=== PATIENT | female | born 1975 | race Caucasian/White ===

== ENCOUNTER 2023-01-16 12:36 | Outpatient (OUT) | payer MEDICAID, SELFPAY ==
[2023-01-16 14:03] LABS: Alanine Aminotransferase 23 U/L (14-59); Albumin Level 3.7 g/dL (3.4-5.0); Alkaline Phosphatase 98 U/L (46-116); Anion Gap 10.7; Aspartate Amino Transferase 16 U/L (15-37); BUN Creatinine Ratio 11.9; Bilirubin Total 0.5 mg/dL (0.2-1.0); Calcium 9.4 mg/dL (8.5-10.1); Carbon Dioxide 28.6 mmol/L (21.0-32.0); Chloride 106 mmol/L (98-107); Estimated GFR (African America >60 (>=60); Estimated GFR (Non-African Ame >60 (>=60); Globulin 3.6 g/dL; Glucose 89 mg/dL (74-106); Lactate Dehydrogenase 161 U/L (81-234); Phosphorus 3.7 mg/dL (2.6-4.7); Potassium 4.3 mmol/L (3.5-5.1); Sodium 141 mmol/L (136-145); Total Protein 7.3 g/dL (6.4-8.2); Uric Acid 3.3 mg/dL (2.6-6.0)
== END 2023-01-16 12:37 ==
PROVIDERS: Visit Provider Psychiatry & Neurology Neurology
DX: C91.10 Chronic lymphocytic leukemia of B-cell type not having achieved remission (principal)
CPT/HCPCS: 36415; 80053; 83615; 84100; 84550

== ENCOUNTER 2023-02-05 15:11 | Outpatient (OUT) | payer MEDICAID, SELFPAY ==
[2023-02-05 15:29] LABS: Basophils Percent Auto 0.4 % (0.2-2.0); Eosinophils Absolute Auto 0.1 10^3/uL (0.0-0.7); Eosinophils Percent Auto 1.4 % (0.9-7.0); Hematocrit 42.2 % (36.0-48.0); Immature Granulocytes Abs Auto 0.02 10^3/uL (0.00-0.03); Immature Granulocytes Pct Auto 0.3 % (0.0-0.5); Lymphocytes Absolute Auto 1.3 10^3/uL (1.2-3.8); Mean Corpuscular HGB Conc 33.2 g/dL (29.9-35.2); Mean Corpuscular Hemoglobin 30.7 pg (26.7-34.0); Mean Corpuscular Volume 92.5 fL (81.0-99.0); Mean Platelet Volume 11.4 fL (9.5-13.5); Monocytes Absolute Auto 0.6 10^3/uL (0.3-0.8); Monocytes Percent Auto 8.8 % (1.7-12.0); Neutrophils Absolute Auto 5.1 10^3/uL (1.4-6.5); Neutrophils Percent Auto 71.1 % (43.0-75.0); Platelet Count 161 10^3/uL (150-450); Red Blood Count 4.56 10^6/uL (4.20-5.40); Red Cell Distribution Width 12.3 % (11.0-15.0); White Blood Count 7.2 10^3/uL (4.0-11.0)
[2023-02-05 15:56] LABS: Lactate Dehydrogenase 161 U/L (81-234); Uric Acid 3.2 mg/dL (2.6-6.0)
== END 2023-02-05 15:12 | disposition home or self-care (01) ==
LOC: LAB 15:12
PROVIDERS: Visit Provider Psychiatry & Neurology Neurology
DX: C91.10 Chronic lymphocytic leukemia of B-cell type not having achieved remission (principal)
CPT/HCPCS: 36415; 83615; 84550; 85025

== ENCOUNTER 2023-10-06 09:44 | Outpatient (OUT) | payer MEDICAID, SELFPAY ==
[2023-10-06 10:10] LABS: Basophils Percent Auto 0.6 % (0.2-2.0); Eosinophils Absolute Auto 0.1 10^3/uL (0.0-0.7); Eosinophils Percent Auto 1.2 % (0.9-7.0); Hematocrit 44.3 % (36.0-48.0); Hemoglobin 14.9 g/dL (12.0-16.0); Immature Granulocytes Abs Auto 0.01 10^3/uL (0.00-0.03); Immature Granulocytes Pct Auto 0.2 % (0.0-0.5); Lymphocytes Absolute Auto 1.2 10^3/uL (1.2-3.8); Lymphocytes Percent Auto 17.5 % (20.5-60.0); Mean Corpuscular HGB Conc 33.6 g/dL (29.9-35.2); Mean Corpuscular Volume 89.3 fL (81.0-99.0); Mean Platelet Volume 10.9 fL (9.5-13.5); Monocytes Absolute Auto 0.5 10^3/uL (0.3-0.8); Monocytes Percent Auto 7.3 % (1.7-12.0); Neutrophils Absolute Auto 4.8 10^3/uL (1.4-6.5); Neutrophils Percent Auto 73.2 % (43.0-75.0); Platelet Count 196 10^3/uL (150-450); Red Blood Count 4.96 10^6/uL (4.20-5.40); White Blood Count 6.6 10^3/uL (4.0-11.0)
[2023-10-06 11:10] LABS: Alanine Aminotransferase 23 U/L (14-59); Albumin Globulin Ratio 0.9; Albumin Level 3.7 g/dL (3.4-5.0); Alkaline Phosphatase 86 U/L (46-116); Anion Gap 13.1; Aspartate Amino Transferase 14 U/L (15-37); BUN Creatinine Ratio 16.4; Bilirubin Total 0.4 mg/dL (0.2-1.0); Carbon Dioxide 25.9 mmol/L (21.0-32.0); Chloride 105 mmol/L (98-107); Estimated GFR (African America >60 (>=60); Estimated GFR (Non-African Ame >60 (>=60); Globulin 3.9 g/dL; Glucose 90 mg/dL (74-106); Lactate Dehydrogenase 173 U/L (81-234); Phosphorus 3.5 mg/dL (2.6-4.7); Sodium 140 mmol/L (136-145); Total Protein 7.6 g/dL (6.4-8.2); Uric Acid 3.1 mg/dL (2.6-6.0)
== END 2023-10-06 09:45 | disposition home or self-care (01) ==
LOC: LAB 09:45
PROVIDERS: Visit Provider Psychiatry & Neurology Neurology
DX: C83.08 Small cell B-cell lymphoma, lymph nodes of multiple sites (principal)
CPT/HCPCS: 36415; 80053; 83615; 84100; 84550; 85025

== ENCOUNTER 2024-01-29 08:00 | Outpatient (RCR) | payer MEDICAID, SELFPAY ==
--- OUTSIDE RECORDS SUMMARY | 2024-01-23 08:56 | XMS_ITS | CCD ---
Author Organization [facility] Care Team Providers Care Bee Rancher Name Role Phone Bernice Chavis Unavailable BERNICE CHAVIS Primary Care Physician SALINAS, MOHAMMAD H Admitting Unavailable SELF, REFERRED Referring Unavailable SALINAS, MOHAMMAD H Attending Unavailable SELF, REFERRED Primary Care Unavailable SELF, REFERRED Referring Unavailable SELF, REFERRED Primary Care Unavailable SALINAS, MOHAMMAD H Attending Unavailable SALINAS, MOHAMMAD H Admitting Unavailable SALINAS, MOHAMMAD H Admitting Unavailable SELF, REFERRED Referring Unavailable SALINAS, MOHAMMAD H Attending Unavailable SELF, REFERRED Primary Care Unavailable SALINAS, MOHAMMAD H Attending Unavailable SALINAS, MOHAMMAD H Admitting Unavailable SELF, REFERRED Referring Unavailable SELF, REFERRED Primary Care Unavailable SELF, REFERRED Primary Care Unavailable SALINAS, MOHAMMAD H Attending Unavailable SALINAS, MOHAMMAD H Admitting Unavailable SELF, REFERRED Referring Unavailable SELF, REFERRED Primary Care Unavailable SALINAS, MOHAMMAD H Attending Unavailable SALINAS, MOHAMMAD H Admitting Unavailable SELF, REFERRED Referring Unavailable SALINAS, MOHAMMAD H Admitting Unavailable SELF, REFERRED Referring Unavailable SELF, REFERRED Primary Care Unavailable SALINAS, MOHAMMAD H Attending Unavailable SALINAS, MOHAMMAD H Admitting Unavailable SALINAS, MOHAMMAD H Attending Unavailable SELF, REFERRED Referring Unavailable SELF, REFERRED Primary Care Unavailable SALINAS, MOHAMMAD H Admitting Unavailable SELF, REFERRED Referring Unavailable SALINAS, MOHAMMAD H Attending Unavailable SELF, REFERRED Primary Care Unavailable MISC, DOCTOR Consulting Unavailable MISC, DOCTOR Attending Unavailable MISC, DOCTOR Admitting Unavailable PALMIRABERNICE GUERRERO Primary Care Unavailable MISC, DR FERNANDO Consulting Unavailable SALINAS, JOANNE Admitting Unavailable SALINAS, JOANNE Attending Unavailable BERNICE CHAVIS Primary Care Unavailable SALINAS, MOHAMMAD Consulting Unavailable SALINAS, MOHAMMAD Admitting Unavailable SALINAS, MOHAMMAD Attending Unavailable PALMIRABERNICE Primary Care Unavailable SALINAS, MOHAMMAD Admitting Unavailable SALINAS, MOHAMMAD Consulting Unavailable SALINAS, MOHAMMAD Attending Unavailable PALMIRA, BERNICE Primary Care Unavailable SALINAS, MOHAMMAD Attending Unavailable SALINAS, MOHAMMAD Admitting Unavailable SALINAS, MOHAMMAD Consulting Unavailable PALMIRA, BERNICE Primary Care Unavailable SALINAS, MOHAMMAD Attending Unavailable SALINAS, MOHAMMAD Admitting Unavailable SALINAS, MOHAMMAD Consulting Unavailable PALMIRA, BERNICE Primary Care Unavailable PALMIRA, BERNICE Primary Care Unavailable MISC, DOCTOR Consulting Unavailable MISC, DOCTOR Attending Unavailable MISC, DR FERNANDO Admitting Unavailable PALMIRA, BERNICE Primary Care Unavailable MISC, DR FERNANDO Consulting Unavailable MISC, DR FERNANDO Attending Unavailable MISC, DR FERNANDO Admitting Unavailable PAY ., DR MELARA Admitting Unavailable PALMIRA, BERNICE Primary Care Unavailable PAY ., DR MELARA Attending Unavailable FLORES ., DEEPIKA Consulting Unavailable LAKHWINDER CHANDLER Consulting Unavailable SALINAS, MOHAMMAD Admitting Unavailable SALINAS, MOHAMMAD Attending Unavailable PALMIRA, BERNICE Primary Care Unavailable SALINAS, MOHAMMAD Admitting Unavailable SALINAS, MOHAMMAD Consulting Unavailable SALINAS, MOHAMMAD Attending Unavailable PALMIRA, BERNICE Primary Care Unavailable SALNIAS, MOHAMMAD Admitting Unavailable SALINAS, MOHAMMAD Consulting Unavailable SALINAS, MOHAMMAD Attending Unavailable BERNICE CHAVIS Primary Care Unavailable SALINAS, MOHAMMAD Admitting Unavailable SALINAS, MOHAMMAD Consulting Unavailable SALINAS, MOHAMMAD Attending Unavailable PALMIRA, BERNICE Primary Care Unavailable PAY ., DR MELARA Consulting Unavailable PAY ., DR MELARA Attending Unavailable PALMIRA, BERNICE Primary Care Unavailable PAY ., DR MELARA Admitting Unavailable Palmira, Bernice Unavailable Vicente Tam Unavailable Palmira, DO Bernice N Primary Care Provider Palmira, DO Bernice N Attending Provider Palmira, Bernice N Attending Unavailable Palmira, Bernice N Admitting Unavailable Palmira, Bernice N Primary Care Unavailable Palmira, Bernice N Attending Unavailable Palmira, Bernice N Admitting Unavailable Palmira, Bernice N Primary Care Unavailable SALINAS, MOHAMMAD Daniel. Attending Unavailable NICOL KLEIN Attending Unav ailable BOONE SALINAS Attending Unavailable ESTRELLA SANTA Attending Unavailable BOONE SALINAS Referring Unavailable Allergies Allergy Classification Reported Allergen(s) Allergy Type Date of Onset Reaction(s) Facility (15 sources) Chlorhexidine; Translations: [Chlorhexidine] Drug Allergy 12-11-19 14 burning, Unknown Reaction [facility] Other (9 sources) Codeine Drug Allergy itchy [facility] Other (11 sources) Latex; Translations: [LATEX] Propensity to adverse reactions 12-24-19 13 itchy, rash itching [facility] Other (9 sources) pollen, dust Propensity to adverse reactions sinus [facility] Other (1 source) Chlorhexidine Drug Allergy 10-10-19 15 [facility] Repository (6 sources) Codeine; Translations: [CODEINE] Drug Allergy 04-07-20 12 Itching [facility] Repository (2 sources) Etoposide; Translations: [CHLORHEXIDINE GLUCONATE] Drug Allergy 04-17-20 13 [facility] Repository (2 sources) Latex Drug allergy (disorder) 11-14-19 13 [facility] Repository (1 source) OPIODS; Translations: [OPIODS] Propensity to adverse reactions (disorder) 05-11-20 20 [facility] Repository (1 source) Codeine Drug Allergy 08-09-19 21 [facility] Repository (1 source) almond allergenic extract; Translations: [ALMOND] Drug Allergy 11-23-19 23 [facility] Repository (1 source) Grass pollen; Translations: [GRASS POLLEN] Propensity to adverse reactions to drug (disorder) 05-10-20 22 [facility] Repository (1 source) house dust allergenic extract; Translations: [HOUSE DUST] Drug Allergy 05-10-20 22 [facility] Repository (1 source) HYDROmorphone; Translations: [HYDROMORPHONE HCL] Drug Allergy 12-17-19 14 [facility] Repository (1 source) Tree and shrub pollen; Translations: [TREE AND SHRUB POLLEN] Propensity to adverse reactions to drug (disorder) 05-10-20 [facility] Repository Medications Current Medications Medication Drug Class(es) Dates Sig (Normalized) Sig (Original) acalabrutinib 100 MG Oral Tablet [Calquence] (4 sources) take 1 tablet by mouth every twelve hours Calquence 100 MG 1 tablet Orally every [address] Red, [facility], Chronic lymphocytic lukemia. Active cetirizine hydrochloride 10 mg oral tablet (13 sources) Histamine-1 Receptor Antagonist Start: 04-26-2016 take 1 tablet by mouth every twenty-four hours Cetirizine HCl 10 mg 1 tablet Orally Once a day for 90 days Apr, Active cholecalciferol 0.05 mg oral capsule (8 sources) Vitamin D Start: 07-19-2020 take 1 capsule by mouth once daily Cholecalciferol (Vitamin D3) (Vitamin D3) 50 mcg (2,000 unit) Capsule Active 50 MCG PO Daily July 19, 2020 1:00am take 1 tablet by mouth once amos y Vitamin D3 50 MCG (2000 UT) 1 tablet Orally Once a day Active diazePAM 5 mg oral tablet (1 source) Benzodiazepine Start: 08-22-2017 take 5 mg by mouth once daily as needed for muscle spasms Valium 5 mg, Oral, Daily, PRN Spasm, Refills(s) 0 Start Date: 08/22/17 Status: Ordered fluticasone propionate 0.05 mg/actuat metered dose nasal spray (4 sources) Corticosteroid Start: 07-19-2020 Fluticasone Propionate Active 1 SPRAY INTRANASAL Daily July 19, 2020 1:00am Start: 08-22-2017 Flonase 2 spra y(s), Nasal, BID, Refill(s) 0 Start Date: 08/22/17 Status: Ordered Handicap placards as directed (5 sources) Start: 06-13-2021 Handicap placa rds as directed 1 as directed as directed Jun, Active ibuprofen 800 mg oral tablet (13 sources) Nonsteroidal Anti-inflammatory Drug Start: 07-19-2020 take 800 mg by mouth every eight hours Ibuprofen Active 800 MG PO Q8H July 19, 2020 1:00am Start: 08-22-2017 take 800 mg by mouth twice daily as needed for pain ibuprofen 800 mg, Oral, BID, PRN as needed for pain, Refills(s) 0 Start Date: 08/22/17 Status: Ordered take 1 tablet by lindsay th three times daily as needed ibuprofen 800 mg 1 tab Oral tid PRN prn Active Medical Marijuana / Cannabinoid Product as documented (9 sources) Medical Marijuan a / Cannabinoid Product as documented as documented as documented as documented Active methocarbamol 500 mg oral tablet (1 source) Muscle Relaxant Start: 8 take 500 mg by mouth twice daily as needed for pain methocarbamol 500 mg, Oral, BID, PRN as needed for pain, Refills(s) 0 Start Date: 08/22/17 Status: Ordered Multivitamin (Multiple Vitamins) Tablet (3 sources) Start: 0 take 1 tablet by mouth once daily Multivitamin (Multiple Vitamins) Tablet Active 1 TAB PO Daily July 19, 2020 1:00am Multivitamin Adult - (5 sources) Multivitamin Tomy lt - as directed Orally Active Problems Active Problems Problem Classification Problem Date Documented Date Episodic/Chronic Allergic reactions (11 sources) Allergy to tree nut; Translations: [Allergy to other foods] Onset: 06-13-2021 Resolved: 06-13-2021 Episodic Calculus of urinary tract (1 source) Kidney stone 08-22-2017 Episodic Diseases of white blood cells (3 sources) Lymphocytosis; Translations: [Lymphocytosis (symptomatic)] 07-19-2020 Chronic Diverticulosis and diverticulitis (1 source) Diverticulosis of intestine, part unspecified, without perforation or abscess without bleeding; Translations: [DVRTCLOS PRT UNS NO PERF/ABSC NO BL] Onset: 03-17-2022 Chronic Leukemias (20 sources) Chronic lymphoid leukemia, disease; Translations: [Chronic lymphocytic leukemia of B-cell type not having achieved remission] Onset: 03-17-2022 Chronic Malaise and fatigue (2 sources) Chronic fatigue, unspecified; Translations: [Chronic fatigue, unspecified] Onset: 08-02-2022 Chronic Non-Hodgkin`s lymphoma (2 sources) Small cell B-cell lymphoma, lymph nodes of multiple sites; Translations: [Small cell b-cell lymphoma, lymph nodes of multiple sites] Onset: 04-11-2023 Chronic Osteoarthritis (1 source) Osteoarthritis 08-22-2017 Chronic Other nervous system disorders (10 sources) Chronic pain syndrome; Translations: [Chronic pain syndrome] 08-22-2017 Chronic Other nervous system disorders (1 source) Carpal tunnel syndrome 08-22-2017 Chronic Other screening for suspected conditions (not mental disorders or infectious disease) (9 sources) Encounter for screening mammogram for malignant neoplasm of breast; Translations: [Patient encounter status] Onset: 09-27-2021 Resolved: 09-27-2021 Episodic Other upper respiratory disease (9 sources) Allergic rhinitis; Translations: [Allergic rhinitis, unspecified] Chronic Spondylosis; intervertebral disc disorders; other back problems (12 sources) Sciatica; Translations: [Lumbago with sciatica, right side] Onset: 06-13-2021 Resolved: 06-13-2021 Episodic Unclassified (1 source) Encounter for screening mammogram for malignant neoplasm of breast; Translations: [Encounter for screening mammogram for malignant neoplasm of breast] Onset: 05-22-2023 Past or Other Problems Problem Classification Problem Date Documented Da te Episodic/Chronic Nonmalignant breast conditions (1 source) Unspecified lump in the left breast, unspecified quadrant Onset: 09-27-2021 Resolved: 09-27-2021 Episodic Other aftercare (1 source) Other intermodal dispatcher (current) drug therapy; Translations: [OTH CONFERENCE ASSISTANT CURRENT DRUG THERAPY] Onset: 03-17-2022 Episodic Other gastrointestinal disorders (4 sources) Diarrhea, unspecified; Translations: [DIARRHEA UNSPECIFIED] Onset: 03-16-2022 Episodic Results Test Name Value Interpretation Reference Range Facility Orders Onlyon 07-26-2023 Orders Only [id number] Kristan Guerrero 1975 F Date Provider Department Center 07/26/2023 [facility] Family History Problem Relation Age of Onset Diabetes Mother Hypertension Mother Cancer Father Cancer Maternal Grandfather Stroke Maternal Grandfather Cancer Paternal Grandmother Family Status - Relation Status Age at Mother Father Maternal Grandfather Paternal Grandmother Normal [facility] US breast RT limitedon 05-28 US breast RT limited [place] [address] Mammography Report Signed Patient: CesarDiamond MR#: [id number] : 1975 Acct:[id number] Age/Sex: 47 / F ADM Date: 05/28/23 Loc: [place] Room: Type: [facility] Attending Dr: Bernice Chavis DO Copies to: Bernice Chavis DO Ordering Provider: Bernice Chavis DO Date of Service: 05/28/23 MM/MM special view RT w/CAD: Abnormality of right breast on screening mammogram ([id number]) US/US breast RT limited: R92.8 CLINICAL DATA: Follow-up developing nodular asymmetry. DIAGNOSTIC RIGHT MAMMOGRAMS - FULL FIELD DIGITAL WITH TOMOSYNTHESIS AND CAD Tomosynthesis true lateral and spot compression craniocaudal and mediolateral oblique views of the right breast were obtained using low-dose digital technique. Comparison is made to prior studies from September 27, 2016 through May 22, 2023. This examination was reviewed with the aid of CAD. There is some heterogeneously dense breast tissue. Benign-appearing nodularity is again seen. The developing nodular asymmetry at the medial right breast persists and measures 4 to 5 mm in size, 5 cm from the nipple. This is not well seen on the true lateral or MLO images though is probably centrally located based on the tomographic images. LIMITED RIGHT BREAST ULTRASOUND Real-time ultrasound evaluation of the central medial breast was performed. There are multiple cysts. Some are simple though others are mildly complicated. The largest include a septated cyst or clustered microcysts at 1-2 o'clock, 6 cm from the nipple measuring 4 x 4 x 6 mm. In the periareolar region at 2:00 there is a slightly lobulated cyst with debris measuring 5 mm. In the retroareolar region, there is another rounded hypoechoic nodular area suggesting a cyst with debris measuring 4 mm. There is minor duct ectasia. No solid masses or other suspicious ultrasound abnormalities are noted. MM/MM special view RT w/CAD IMPRESSION: BENIGN APPEARING SIMPLE AND MILDLY COMPLICATED CYSTS ROUTINE FOLLOW-UP IS RECOMMENDED IN ONE YEAR. RESULT CODE: 2 Benign Findings(s) DENSITY CODE: 3 (approximately 51-75% glandular) FOLLOW UP: 1YR The false-negative rate of mammography is approximately 10-percent. Management of a palpable abnormality must be based on clinical grounds. Patient was entered into a reminder system with a target due date for the next mammogram. Impression dictated by: Yuli Zamora M.D.05/28/2023 3:22 PM Dictation Location: [facility] Transcribed By: SHEILA 05/28/231521 Dictated By: Yuli Zamora MD 05/28/23 1451 Signed By: 05/28/23 152 [facility] CBC WITH AUTO DIFFERENTIALon 05-23-2023 Basophils (Bld) [#/Vol] 0.04 10*3/uL Normal 0.00-0.20 [facility] Comment on above: Performed By: #### L [id number] ####[facility] (BEAKER)[address] [facility] [address] Basophils/100 WBC (Bld) 0.8 % Normal 0.0-1.0 [facility] Comment on above: Performed By: #### L [id number] ####[facility] (BEAKER)[address] [place] [address] Eosinophils (Bld) [#/Vol] 0.16 10*3/uL Normal 0.00-0.50 [facility] Comment on above: Performed By: #### L [id number] ####[facility] ([facility] [place] [address] Eosinophils/100 WBC (Bld) 3.3 % Normal 0.0-6.0 [facility] Comment on above: Performed By: #### L [id number] ####[facility] (BEAKER)[address] [place] [address] Erythrocyte distribution width (RBC) [Ratio] 12.1 % Normal 11.5-15.0 [facility] Comment on above: Performed By: #### L [id number] ####[facility] ([facility] [facility] [address] ERYTHROCYTE MEAN CORPUSCULAR HEMOGLOBIN CONCENTRATION (G/DL) BY AUTOMATED 34.1 g/dL Normal 32.0-35.0 [facility] Comment on above: Performed By: #### L [id number] ####[facility] (BEAKER)[address] [place] [address] Hematocrit (Bld) [Volume fraction] 43.4 % Normal 36.0-48.0 [facility] Comment on above: Performed By: #### L [id number] ####[facility] (BEAKER)[address] [place] [address] Hemoglobin (Bld) [Mass/Vol] 14.8 g/dL Normal 12.0-15.0 [facility] Comment on above: Performed By: #### L [id number] ####[facility] (BEAKER)[address] [place] [address] Immature granulocytes (Bld) [#/Vol] 0.02 10*3/uL Normal 0.00-0.20 [facility] Comment on above: Performed By: #### L [id number] ####[facility] (BEAKER)[address] [place] [address] Immature granulocytes/100 WBC (Bld) 0.4 % Normal 0.0-1.0 [facility] Comment on above: Performed By: #### L [id number] ####[facility] (BEAKER)[address] [place] [address] Lymphocytes (Bld) [#/Vol] 1.04 10*3/uL Low 1.20-4.00 [facility] Comment on above: Performed By: #### L [id number] ####[facility] (BEAKER)[address] [place] [address] Lymphocytes/100 WBC (Bld) 21.7 % Normal 20.0-45.0 [facility] Comment on above: Performed By: #### L [id number] ####[facility] (BEAKER)[address] [place] [address] MCH (RBC) [Entitic mass] 30.1 pg Normal 27.0-33.0 [facility] Comment on above: Performed By: #### L [id number] ####[facility] (BEAKER)[address] [place] [address] MCV (RBC) [Entitic vol] 88.4 fL Normal 82.0-98.0 [facility] Comment on above: Performed By: #### L [id number] ####[facility] (BEAKER)[address] [place] [address] Monocytes (Bld) [#/Vol] 0.41 10*3/uL Normal 0.10-1.00 [facility] Comment on above: Performed By: #### L [id number] ####[facility] ([facility] [place] [address] Monocytes/100 WBC (Bld) 8.6 % Normal 5.0-12.0 [facility] Comment on above: Performed By: #### L [id number] ####[facility] ([facility])[address] [place] [address] Neutrophils (Bld) [#/Vol] 3.12 10*3/uL Normal 1.60-7.60 [facility] Comment on above: Performed By: #### L [id number] ####[facility] ([facility])[address] [place] [address] Neutrophils/100 WBC (Bld) 65.2 % Normal 40.0-72.0 [facility] Comment on above: Performed By: #### L [id number] ####[facility] ([facility] [place] [address] NRBC (PER 100 WBCS) BY AUTOMATED COUNT 0.0 % Normal 0 [facility] Comment on above: Performed By: #### L [id number] ####[facility] ([facility] [place] [address] PLATELETS (10*3/UL) IN BLOOD AUTOMATED COUNT 221 10*3/uL Normal 150-400 [facility] Comment on above: Performed By: #### L [id number] ####[facility] (BEAKER)[address] [place] [address] RBC (Bld) [#/Vol] 4.91 10*6/uL Normal 3.80-5.00 [facility] Comment on above: Performed By: #### L [id number] ####[facility] ([facility])[address] [place] [address] WBC (Bld) [#/Vol] 4.79 10*3/uL Normal 4.00-10.60 [facility] Comment on above: Performed By: #### L [id number] ####[facility] ([facility])[address] [place] [address] COMPREHENSIVE METABOLIC PANE Alexsander 05-23-2023 Albumin [Mass/Vol] 4.4 g/dL Normal 3.5-5.7 [facility] Comment on above: Performed By: #### L [id number] #### [facility] ([facility]) [address] [place] [address] ALP [Catalytic activity/Vol] 91 U/L Normal 34-104 [facility] Comment on above: Performed By: #### L [id number] #### [facility] ([facility]) [address] [place] [address] ALT [Catalytic activity/Vol] 13 U/L Normal 7-52 [facility] Comment on above: Performed By: #### L [id number] #### [facility] ([facility]) [address] [place] [address] Anion gap [Moles/Vol] 12 mmol/L Normal 7-20 [facility] Comment on above: Performed By: #### L [id number] #### [facility] ([facility]) [address] [place] [address] AST [Catalytic activity/Vol] 13 U/L Normal 13-39 [facility] Comment on above: Performed By: #### L [id number] #### [facility] ([facility]) [address] [place] [address] Bilirubin [Mass/Vol] 0.5 mg/dL Normal 0.3-1.0 [facility] Comment on above: Performed By: #### L [id number] #### [facility] ([facility] [address] [place] [address] Calcium [Mass/Vol] 9.4 mg/dL Normal 8.6-10.3 [facility] Comment on above: Performed By: #### L [id number] #### [facility] ([facility]) [address] [place] [address] Chloride [Moles/Vol] 105 mmol/L Normal 98-107 [facility] Comment on above: Performed By: #### L [id number] #### [facility] ([facility]) [address] [place] [address] CO2 [Moles/Vol] 27 mmol/L Normal 21-31 [facility] Comment on above: Performed By: #### L [id number] #### [facility] ([facility]) [address] [place] [address] Creatinine [Mass/Vol] 0.56 mg/dL Low 0.60-1.20 [facility] Comment on above: Performed By: #### L [id number] #### [facility] ([facility]) [address] [place] [address] GLOMERULAR FILTRATION RATE ML/MIN/1.73 SQ M.PREDICTED 112.5 mL/min/1.73m*2 Normal >60.0 [facility] Comment on above: Result Comment: The [facility]???s estimated glomerular filtration rate (eGFR) will no longer include consideration of race in its calculation. The National Kid[employer]???s eGFR Task Force developed new recommendations for the estimation of the glomerular filtration rate in the [place] They recommend immediate implementation of the new equation refit without the race variable in all laboratories because the calculation does not include race. In addition to not including race in the calculation and reporting, it included diversity in its development, and has acceptable performance characteristics and potential consequences that do not disproportionately affect any one group of individuals. Performed By: #### L [id number] #### [facility] ([facility]) [address] [place] [address] Glucose [Mass/Vol] 92 mg/dL Normal 70-100 [facility] Comment on above: Performed By: #### L [id number] #### [facility] [facility] ([facility] [address] [place] [address] Potassium [Moles/Vol] 4.0 mmol/L Normal 3.5-5.1 [facility] Comment on above: Performed By: #### L [id number] #### [facility] ([facility] [place]) [address] [place] [address] Protein [Mass/Vol] 7.0 g/dL Normal 6.0-8.3 [facility] Comment on above: Performed By: #### L [id number] #### [facility] ([facility] [place] [address] [place] [address] Sodium [Moles/Vol] 140 mmol/L Normal 136-145 [facility] Comment on above: Performed By: #### L [id number] #### [facility] ([facility] [place] [address] [place] [address] Urea nitrogen [Mass/Vol] 15 mg/dL Normal 7-25 [facility] Comment on above: Performed By: #### L [id number] #### [facility] ([facility] [address] [place] [address] UREA NITROGEN/CREATININE (MASS RATIO) IN SER/PLAS 26.8 Normal [facility] Comment on above: Performed By: #### L [id number] #### [facility] ([facility] [address] [place] [address] LACTATE DEHYDROGENASEon 05-06 LACTATE DEHYDROGENASE (U/L) IN SER/PLAS BY LAC->PYR RXN 196 U/L Normal 140-271 [facility] Comment on above: Performed By: #### L [id number] ####[facility] ([facility] [place] [address] Labon 05-23-2023 Lab [id number] Kristan Guerrero 1975 F Date Provider Department [place] 05/23/2023 2243-[facility] DCC LAB RESOURCE DCC DRAW DCC Family History Problem Relation Age of Onset Diabetes Mother Hypertension Mother Cancer Father Cancer Maternal Grandfather Stroke Maternal Grandfather Cancer Paternal Grandmother Family Status - Relation Status Age at Mother Father Maternal Grandfather Paternal Grandmother Normal [facility] PHOSPHORUSon 05-23-2023 Magnesium [Mass/Vol] 3.8 mg/dL Normal 2.5-5.0 [facility] Comment on above: Performed By: #### L [id number] #### [facility] ([facility]) [address] [place] [address] URIC ACIDon 05-23-2023 Magnesium [Mass/Vol] 3.3 mg/dL Normal 2.3-6.6 [facility] Comment on above: Performed By: #### L [id number] #### [facility] ([facility]) [address] [place] [address] MM screening mammo BI w/CADo n 05-22-2023 MM screening mammo BI w/CAD [facility] [address] Mammography Report Signed Patient: Diamond Guerrero MR#: [id number] : 1975 Acct:[id number] Age/Sex: 47 / F ADM Date: 05/22/23 Loc: [place] Room: Type: [facility] Attending Dr: Bernice Chavis DO Copies to: Bernice Chavis DO Ordering Provider: Bernice Chavis DO Date of Service: 05/22/23 MM/MM screening mammo BI w/CAD: Screening mammogram, encounter for CLINICAL DATA: Screening for malignancy. BILATERAL SCREENING MAMMOGRAMS - FULL FIELD DIGITAL WITH TOMOSYNTHESIS AND CAD Tomosynthesis craniocaudal and mediolateral oblique views of both breasts were obtained using low- dose digital technique. Comparison is made to prior studies from September 27, 2016 through October 14, 2021. This examination was reviewed with the aid of CAD. The breast parenchyma is heterogeneously dense. Benign calcifications are present. Waxing and waning benign-appearing nodularity is present in this patient with history of cysts. There is a focal nodular asymmetry at the medial right breast in the CC plane that is not obvious on the priors. It is approximately 4 mm in size. No typically malignant calcifications or architectural distortion are noted. MM/MM screening mammo BI w/CAD IMPRESSION: DEVELOPING RIGHT BREAST FOCAL ASYMMETRY. FOLLOW-UP SPOT COMPRESSION VIEWS ARE SUGGESTED ALONG WITH ULTRASOUND, IF WARRANTED. RESULT CODE: 0 Incomplete: Needs Additional Imaging Evaluation DENSITY CODE: 3 (approximately 51-75% glandular) FOLLOW UP: ADD The false-negative rate of mammography is approximately 10-percent. Management of a palpable abnormality must be based on clinical grounds. Patient was entered into a reminder system with a target due date for the next mammogram. Impression dictated by: Yuli Zamora M.D.05/22/2023 1:00 PM Dictation Location: [facility] Transcribed By: [facility] 05/22/23 1300 Dictated By: Yuli Zamora MD 05/22/23 1248 Signed By: 05/22/23 1300 [facility] 29on 05-08-2023 29 Addended by: HAMZAH RIDER on: 05/08/2023 11:33 AM Modules accepted: Orders Normal [facility] Documentationon 05-08-2023 Documentation [id number] Kristan Guerrero ca T 1975 F Date Provider Department Center 05/08/2023 3976-November [facility] ONC [facility] Family History Problem Relation Age of Onset Diabetes Mother Hypertension Mother Cancer Father Cancer Maternal Grandfather Stroke Maternal Grandfather Cancer Paternal Grandmother Family Status - Relation Status Age at Mother Father Maternal Grandfather Paternal Grandmother Reason for Visit and Comments: Specialty Pharmacy Note: [facility] [Other] Normal [facility] Orders Onlyon 05-08-2023 Orders Only [id number] Kristan Guerrero T 1975 F Date Provider Department Center 05/08/2023 [facility] ONC [facility] Family History Problem Relation Age of Onset Diabetes Mother Hypertension Mother Cancer Father Cancer Maternal Grandfather Stroke Maternal Grandfather Cancer Paternal Grandmother Family Status - Relation Status Age at Mother Father Maternal Grandfather Paternal Grandmother Normal [facility] POCT GLUCOSE METER UNSOLICIT ED RESULTSon 04-11-2023 Glucose [Mass/Vol] 86 mg/dL Normal 70-105 [facility] Comment on above: Order Comment: Waive d Testing in the ED is performed under the ED CLIA certificate #[id number]. Result Comment: claire villanueva Performed By: #### L [id number] #### [facility] [address] [place] [address] CBC WITH AUTO DIFFERENTIALon 03-28-2023 Basophils (Bld) [#/Vol] 0.04 10*3/uL Normal 0.00-0.20 [facility] Comment on above: Performed By: #### L [id number] #### [facility] ([facility] [place] [address] [address] Basophils/100 WBC (Bld) 0.6 % Normal 0.0-1.0 [facility] Comment on above: Performed By: #### L [id number] #### [facility] ([facility] [address] [place] [address] Eosinophils (Bld) [#/Vol] 0.09 10*3/uL Normal 0.00-0.50 [facility] Comment on above: Performed By: #### L [id number] #### [facility] ([facility] [address] [place] [address] Eosinophils/100 WBC (Bld) 1.4 % Normal 0.0-6.0 [facility] Comment on above: Performed By: #### L [id number] #### [facility] [address] [place] [address] Erythrocyte distribution width (RBC) [Ratio] 12.9 % Normal 11.5-15.0 [facility] Comment on above: Performed By: #### L [id number] #### [facility] [address] [facility] [place] [address] ERYTHROCYTE MEAN CORPUSCULAR HEMOGLOBIN CONCENTRATION (G/DL) BY AUTOMATED 32.5 g/dL Normal 32.0-35.0 [facility] Comment on above: Performed By: #### L [id number] #### [facility] [address] [place] [address] Hematocrit (Bld) [Volume fraction] 42.2 % Normal 36.0-48.0 [facility] Comment on above: Performed By: #### L [id number] #### [facility] ([facility]) [address] [place] [address] Hemoglobin (Bld) [Mass/Vol] 13.7 g/dL Normal 12.0-15.0 [facility] Comment on above: Performed By: #### L [id number] #### [facility] ([facility] [address] [place] [address] Immature granulocytes (Bld) [#/Vol] 0.04 10*3/uL Normal 0.00-0.20 [facility] Comment on above: Performed By: #### L [id number] #### [facility] ([facility]) [address] [place] [address] Immature granulocytes/100 WBC (Bld) 0.6 % Normal 0.0-1.0 [facility] Comment on above: Performed By: #### L [id number] #### [facility] ([facility]) [address] [place] [address] Lymphocytes (Bld) [#/Vol] 1.08 10*3/uL Low 1.20-4.00 [facility] Comment on above: Performed By: #### L [id number] #### [facility] ([facility] [address] [place] [address] Lymphocytes/100 WBC (Bld) 16.4 % Low 20.0-45.0 [facility] Comment on above: Performed By: #### L [id number] #### [facility] ([facility]) [address] [place] [address] MCH (RBC) [Entitic mass] 30.4 pg Normal 27.0-33.0 [facility] Comment on above: Performed By: #### L [id number] #### [facility] [address] [place] [address] MCV (RBC) [Entitic vol] 93.6 fL Normal 82.0-98.0 [facility] Comment on above: Performed By: #### L [id number] #### [facility] ([facility]) [address] [place] [address] Monocytes (Bld) [#/Vol] 0.70 10*3/uL Normal 0.10-1.00 [facility] Comment on above: Performed By: #### L [id number] #### [facility] ([facility]) [address] [place] [address] Monocytes/100 WBC (Bld) 10.6 % Normal 5.0-12.0 [facility] Comment on above: Performed By: #### L [id number] #### [facility] ([facility]) [address] [place] [address] Neutrophils (Bld) [#/Vol] 4.64 10*3/uL Normal 1.60-7.60 [facility] Comment on above: Performed By: #### L [id number] #### [facility] ([facility]) [address] [place] [address] Neutrophils/100 WBC (Bld) 70.4 % Normal 40.0-72.0 [facility] Comment on above: Performed By: #### L [id number] #### [facility] ([facility]) [address] [place] [address] NRBC (PER 100 WBCS) BY AUTOMATED COUNT 0.0 % Normal 0 [facility] Comment on above: Performed By: #### L [id number] #### [facility] [address] [place] [address] PLATELETS (10*3/UL) IN BLOOD AUTOMATED COUNT 196 10*3/uL Normal 150-400 [facility] Comment on above: Performed By: #### L [id number] #### [facility] ([facility]) [address] [place] [address] RBC (Bld) [#/Vol] 4.51 10*6/uL Normal 3.80-5.00 [facility] Comment on above: Performed By: #### L [id number] #### [facility] ([facility]) [address] [place] [address] WBC (Bld) [#/Vol] 6.59 10*3/uL Normal 4.00-10.60 [facility] Comment on above: Performed By: #### L [id number] #### [facility] ([facility]) [address] [place] [address] COMPREHENSIVE METABOLIC PANE Alexsander 03-28-2023 Albumin [Mass/Vol] 4.2 g/dL Normal 3.5-5.7 [facility] Comment on above: Performed By: #### L [id number] ####[facility] ([facility] [place] [address] ALP [Catalytic activity/Vol] 93 U/L Normal 34-104 [facility] Comment on above: Performed By: #### L [id number] ####[facility] ([facility] [place] [address] ALT [Catalytic activity/Vol] 10 U/L Normal 7-52 [facility] Comment on above: Performed By: #### L [id number] ####[facility] ([facility] [place] [address] Anion gap [Moles/Vol] 12 mmol/L Normal 7-20 [facility] Comment on above: Performed By: #### L [id number] ####[facility] ([facility] [place] [address] AST [Catalytic activity/Vol] 13 U/L Normal 13-39 [facility] Comment on above: Performed By: #### L [id number] ####[facility] ([facility] [place] [address] Bilirubin [Mass/Vol] 0.6 mg/dL Normal 0.3-1.0 [facility] Comment on above: Performed By: #### L [id number] ####[facility] [place] [address] Calcium [Mass/Vol] 9.3 mg/dL Normal 8.6-10.3 [facility] Comment on above: Performed By: #### L [id number] ####[facility] ([facility])[address] [place] [address] Chloride [Moles/Vol] 108 mmol/L High 98-107 [facility] Comment on above: Performed By: #### L [id number] ####[facility] ([facility])[address] [place] [address] CO2 [Moles/Vol] 25 mmol/L Normal 21-31 [facility] Comment on above: Performed By: #### L [id number] ####[facility] ([facility])[address] [place] [address] Creatinine [Mass/Vol] 0.59 mg/dL Low 0.60-1.20 [facility] Comment on above: Performed By: #### L [id number] ####[facility] ([facility])[address] [place] [address] GLOMERULAR FILTRATION RATE ML/MIN/1.73 SQ M.PREDICTED 111.1 mL/min/1.73m*2 Normal >60.0 [facility] Comment on above: Result Comment: The [facility]???s estimated glomerular filtration rate (eGFR) will no longer include consideration of race in its calculation. The National Kid[employer] Foundation???s eGFR Task Force developed new recommendations for the estimation of the glomerular filtration rate in the [place] They recommend immediate implementation of the new equation refit without the race variable in all laboratories because the calculation does not include race. In addition to not including race in the calculation and reporting, it included diversity in its development, and has acceptable performance characteristics and potential consequences that do not disproportionately affect any one group of individuals. Performed By: #### L [id number] ####[facility] ([facility])[address] [place] [address] Glucose [Mass/Vol] 92 mg/dL Normal 70-100 [facility] Comment on above: Performed By: #### L [id number] ####[facility] [place] [address] Potassium [Moles/Vol] 4.0 mmol/L Normal 3.5-5.1 [facility] Comment on above: Performed By: #### L [id number] ####[facility] [place] [address] Protein [Mass/Vol] 6.6 g/dL Normal 6.0-8.3 [facility] Comment on above: Performed By: #### L [id number] ####[facility] ([facility])[address] [place] [address] Sodium [Moles/Vol] 141 mmol/L Normal 136-145 [facility] Comment on above: Performed By: #### L [id number] ####[facility] ([facility])[address] [place] [address] Urea nitrogen [Mass/Vol] 9 mg/dL Normal 7-25 [facility] Comment on above: Performed By: #### L [id number] ####[facility] ([facility])[address] [place] [address] UREA NITROGEN/CREATININE (MASS RATIO) IN SER/PLAS 15.3 Normal [facility] Comment on above: Performed By: #### L [id number] ####[facility] ([facility])[address] [place] [address] LACTATE DEHYDROGENASEon 03-07 LACTATE DEHYDROGENASE (U/L) IN SER/PLAS BY LAC->PYR RXN 193 U/L Normal 140-271 [facility] Comment on above: Performed By: #### L [id number] #### [facility] ([facility]) [address] [place] [address] Labon 03-28-2023 Lab [id number] Kristan Guerrero T 1975 F Date Provider Department Center 03/28/2023 2243-[facility] DCC LAB RESOURCE DCC DRAW DCC No family history on file Normal [facility] PHOSPHORUSon 03-28-2023 Magnesium [Mass/Vol] 2.8 mg/dL Normal 2.5-5.0 [facility] Comment on above: Performed By: #### L [id number] #### [facility] ([facility]) [address] [place] [address] URIC ACIDon 03-28-2023 Magnesium [Mass/Vol] 3.5 mg/dL Normal 2.3-6.6 [facility] Comment on above: Performed By: #### L [id number] #### [facility] ([facility]) [address] [place] [address] 29on 02-27-2023 29 Addended by: HAMZAH RIDER on: 02/28/2023 08:21 AM Modules accepted: Orders Normal [facility] Orders Onlyon 02-27-2023 Orders Only [id number] Peg Guerreroi ca T 1975 F Date Provider Department Center 02/27/2023 [facility] DCC ONC DCC No family history on file [facility] Orders Onlyon 02-09-2023 Orders Only [id number] Peg Guerreroi ca T 1975 F Date Provider Department Center 02/09/2023 [facility] [place] DCC ONC DCC No family history on file [facility] Orders Onlyon 01-23-2023 Orders Only [id number] Peg Guerreroi ca T 1975 F Date Provider Department Center 01/23/2023 [facility] [place] DCC ONC DCC No family history on file [facility] 37on 11-22-2022 37 Continue Acalabrutin ib for 2 years (stop date 10/12/23) We will discontinue allopurinol Recheck CBC, CMP and uric acid before next visit Return to clinic in 4 months [facility] 36on 11-21-2022 36 Needs labs and appt prior to refill [facility] CBC AUTO DIFFon 10-11-2022 BASO # 0.0 103/ul Normal 0.0-0.1 [facility] Comment on above: Performed By: #### U JORI, PHOS, CMP, LDH #### [facility] [address] [place] [address] Dr. Juliocesar Young Basophils/100 WBC (Bld) 0.4 % Normal 0.2-2.0 [facility] Comment on above: Performed By: #### U JORI, PHOS, CMP, LDH #### [facility] [address] [place] [address] Dr. Juliocesar Young EO # 0.1 103/ul Normal 0.0-0.7 [facility] Comment on above: Performed By: #### U JORI, PHOS, CMP, LDH #### [facility] [address] [place] [address] Dr. Juliocesar Young Eosinophils/100 WBC (Bld) 1.3 % Normal 0.9-7.0 [facility] Comment on above: Performed By: #### U JORI, PHOS, CMP, LDH #### [facility] [address] [place] [address] Dr. Juliocesar Young Erythrocyte distribution width (RBC) [Ratio] 12.4 % Normal 11.0-15.0 [facility] Comment on above: Performed By: #### U JORI, PHOS, CMP, LDH #### [facility] [address] [place] [address] Dr. Juliocesar Young Hematocrit (Bld) [Volume fraction] 39.8 % Normal 36.0-48.0 [facility] Comment on above: Performed By: #### U JORI, PHOS, CMP, LDH #### [facility] [address] [place] [address] Dr. Juliocesar Young Hemoglobin (Bld) [Mass/Vol] 13.5 g/dL Normal 12.0-16.0 [facility] Comment on above: Performed By: #### U JORI, PHOS, CMP, LDH #### [facility] [address] [place] [address] Dr. Juliocesar Young IG # 0.03 10e3/ul Normal 0.00-0.03 [facility] Comment on above: Performed By: #### U JORI, PHOS, CMP, LDH #### [facility] [address] [place] [address] Dr. Juliocesar Young IG % 0.4 % Normal 0.0-0.5 [facility] Comment on above: Performed By: #### U JORI, PHOS, CMP, LDH #### [facility] [address] [place] [address] Dr. Juliocesar Young LYMPH # 1.4 103/ul Normal 1.2-3.8 [facility] Comment on above: Performed By: #### U JORI, PHOS, CMP, LDH #### [facility] [address] [place] [address] Dr. Juliocesar Young Lymphocytes/100 WBC (Bld) 21.2 % Normal 20.5-60.0 [facility] Comment on above: Performed By: #### U JORI, PHOS, CMP, LDH #### [facility] [address] [place] [address] Dr. Juliocesar Young MANUAL DIFF REQ NO Normal [facility] Comment on above: Performed By: #### U JORI, PHOS, CMP, LDH #### [facility] [address] [place] [address] Dr. Juliocesar Young MCH (RBC) [Entitic mass] 31.3 pg Normal 26.7-34.0 [facility] Comment on above: Performed By: #### U JORI, PHOS, CMP, LDH #### [facility] [address] [place] [address] Dr. Juliocesar Young MCHC (RBC) [Mass/Vol] 33.9 g/dL Normal 29.9-35.2 [facility] Comment on above: Performed By: #### U JORI, PHOS, CMP, LDH #### [facility] [address] [place] [address] Dr. Juliocesar Young MCV (RBC) [Entitic vol] 92.3 fL Normal 81.0-99.0 [facility] Comment on above: Performed By: #### U JORI, PHOS, CMP, LDH #### [facility] [address] [place] [address] Dr. Juliocesar Young MONO # 0.7 103/ul Normal 0.3-0.8 [facility] Comment on above: Performed By: #### U JORI, PHOS, CMP, LDH #### [facility] [address] [address] [address] Juliocesar Young Monocytes/100 WBC (Bld) 11.0 % Normal 1.7-12.0 [facility] Comment on above: Performed By: #### U JORI, PHOS, CMP, LDH #### [facility] [address] [place] [address] Dr. Juliocesar Young NEUT # 4.4 103/ul Normal 1.4-6.5 [facility] Comment on above: Performed By: #### U JORI, PHOS, CMP, LDH #### [facility] [address] [place] [address] Dr. Juliocesar Young Neutrophils/100 WBC (Bld) 65.7 % Normal 43.0-75.0 [facility] Comment on above: Performed By: #### U JORI, PHOS, CMP, LDH #### [facility] [address] [place] [address] Dr. Juliocesar Young Platelet mean volume (Bld) [Entitic vol] 10.8 fL Normal 9.5-13.5 [facility] Comment on above: Performed By: #### U JORI, PHOS, CMP, LDH #### [facility] [address] [place] [address] Dr. Juliocesar Young PLT 177 103/ul Normal 150-450 [facility] Comment on above: Performed By: #### U JORI, PHOS, CMP, LDH #### [facility] [address] [place] [address] Dr. Juliocesar Young RBC 4.31 106/ul Normal 4.20-5.40 [facility] Comment on above: Performed By: #### U JORI, PHOS, CMP, LDH #### [facility] [address] [place] [address] Dr. Juliocesar Young WBC 6.7 103/ul Normal 4.0-11.0 [facility] Comment on above: Performed By: #### U JORI, PHOS, CMP, LDH #### [facility] [address] [address] [address] Juliocesar Young LDHon 10-11-2022 LDH 133 U/L Normal 81-234 [facility] Comment on above: Performed By: #### C MP #### [facility] [address] [place] [address] Dr. Juliocesar Young PHOSPHORUSon 10-11-2022 Phosphate [Mass/Vol] 3.5 mg/dL Normal 2.6-4.7 [facility] Comment on above: Performed By: #### O VAPE #### [facility] [address] [place] [address] Dr. Juliocesar Young PROF 14(COMP METB)on 023 Albumin [Mass/Vol] 3.4 g/dL Normal 3.4-5.0 [facility] Comment on above: Performed By: #### C MP #### [facility] [address] [place] [address] Dr. Juliocesar Young Albumin/Globulin [Mass ratio] 1.2 {ratio} Normal [facility] Comment on above: Performed By: #### C MP #### [facility] [address] [place] [address] Dr. Juliocesar Young ALP [Catalytic activity/Vol] 85 U/L Normal 46-116 [facility] Comment on above: Performed By: #### C MP #### [facility] [address] [place] [address] Dr. Juliocesar Young ALT [Catalytic activity/Vol] 18 U/L Normal 14-59 [facility] Comment on above: Performed By: #### C MP #### [facility] [address] [place] [address] Dr. Juliocesar Young Anion gap [Moles/Vol] 10.1 mmol/L Normal [facility] Comment on above: Performed By: #### C MP #### [facility] [address] [place] [address] Dr. Juliocesar Young AST [Catalytic activity/Vol] 12 U/L Critically low 15-37 [facility] Comment on above: Performed By: #### C MP #### [facility] [address] [address] [address] Juliocesar Young Bilirubin [Mass/Vol] 0.4 mg/dL Normal 0.2-1.0 [facility] Comment on above: Performed By: #### C MP #### [facility] [address] [address] [address] Juliocesar Young Calcium [Mass/Vol] 8.5 mg/dL Normal 8.5-10.1 [facility] Comment on above: Performed By: #### C MP #### [facility] [address] [address] [address] Juliocesar Young Chloride [Moles/Vol] 110 mmol/L Critically high 98-107 [facility] Comment on above: Performed By: #### C MP #### [facility] [address] [address] [address] Juliocesar Young CO2 [Moles/Vol] 27.9 mmol/L Normal 21.0-32.0 [facility] Comment on above: Performed By: #### C MP #### [facility] [address] [address] [address] Juliocesar Young Creatinine [Mass/Vol] 0.60 mg/dL Normal 0.55-1.02 [facility] Comment on above: Performed By: #### C MP #### [facility] [address] [address] [address] Juliocesar Young EGFR-AF ANGOLAN >60 Normal >=60 [facility] Comment on above: Performed By: #### C MP #### [facility] [address] [address] [address] Juliocesar Young EGFR-NON AF ANGOLAN >60 Normal >=60 [facility] Comment on above: Performed By: #### C MP #### [facility] [address] [address] [address] Juliocesar Young Globulin (S) [Mass/Vol] 2.9 g/dL Normal [facility] Comment on above: Performed By: #### C MP #### [facility] [address] [address] [address] Juliocesar Young Glucose [Mass/Vol] 79 mg/dL Normal 74-106 [facility] Comment on above: Performed By: #### C MP #### [facility] [address] [address] [address] Juliocesar Young Potassium [Moles/Vol] 4.0 mmol/L Normal 3.5-5.1 [facility] Comment on above: Performed By: #### C MP #### [facility] [address] [address] [address] Juliocesar Young Protein [Mass/Vol] 6.3 g/dL Critically low 6.4-8.2 [facility] Comment on above: Performed By: #### C MP #### [facility] [address] [place] [address] Dr. Juliocesar Young Sodium [Moles/Vol] 144 mmol/L Normal 136-145 [facility] Comment on above: Performed By: #### C MP #### [facility] [address] [place] [address] Dr. Juliocesar Young Urea nitrogen [Mass/Vol] 9.0 mg/dL Normal 7.0-18.0 [facility] Comment on above: Performed By: #### C MP #### [facility] [address] [place] [address] Dr. Juliocesar Young Urea nitrogen/Creatinine [Mass ratio] 15.0 mg/mg Normal [facility] Comment on above: Performed By: #### C MP #### [facility] [address] [place] [address] Dr. Juliocesar Young URIC ACID SERUMon 10-11-2022 Urate [Mass/Vol] 3.1 mg/dL Normal 2.6-6.0 [facility] Comment on above: Performed By: #### C MP #### [facility] [address] [place] [address] Dr. Juliocesar Young CBC AUTO DIFFon 07-18-2022 BASO # 0.1 103/ul Normal 0.0-0.1 [facility] Comment on above: Performed By: #### O VAPE #### [facility] [address] [place] [address] Dr. Juliocesar Young Basophils/100 WBC (Bld) 0.6 % Normal 0.2-2.0 [facility] Comment on above: Performed By: #### O VAPE #### [facility] [address] [place] [address] Dr. Juliocesar Young EO # 0.1 103/ul Normal 0.0-0.7 [facility] Comment on above: Performed By: #### O VAPE #### [facility] [address] [place] [address] Dr. Juliocesar Young Eosinophils/100 WBC (Bld) 1.4 % Normal 0.9-7.0 [facility] Comment on above: Performed By: #### O VAPE #### [facility] [address] [place] [address] Dr. Juliocesar Young Erythrocyte distribution width (RBC) [Ratio] 13.1 % Normal 11.0-15.0 [facility] Comment on above: Performed By: #### O VAPE #### [facility] [address] [place] [address] Dr. Juliocesar Young Hematocrit (Bld) [Volume fraction] 41.5 % Normal 36.0-48.0 [facility] Comment on above: Performed By: #### O VAPE #### [facility] [address] [place] [address] Dr. Juliocesar Young Hemoglobin (Bld) [Mass/Vol] 14.2 g/dL Normal 12.0-16.0 [facility] Comment on above: Performed By: #### O VAPE #### [facility] [address] [place] [address] Dr. Juliocesar Young IG # 0.03 10e3/ul Normal 0.00-0.03 [facility] Comment on above: Performed By: #### O VAPE #### [facility] [address] [place] [address] Dr. Juliocesar Young IG % 0.4 % Normal 0.0-0.5 [facility] Comment on above: Performed By: #### O VAPE #### [facility] [address] [address] [address] Juliocesar Young LYMPH # 1.2 103/ul Normal 1.2-3.8 [facility] Comment on above: Performed By: #### O VAPE #### [facility] [address] [place] [address] Dr. Juliocesar Young Lymphocytes/100 WBC (Bld) 15.4 % Critically low 20.5-60.0 [facility] Comment on above: Performed By: #### O VAPE #### [facility] [address] [place] [address] Dr. Juliocesar Young MANUAL DIFF REQ NO Normal [facility] Comment on above: Performed By: #### O VAPE #### [facility] [address] [place] [address] Dr. Juliocesar Young MCH (RBC) [Entitic mass] 31.0 pg Normal 26.7-34.0 [facility] Comment on above: Performed By: #### O VAPE #### [facility] [address] [place] [address] Dr. Juliocesar Young MCHC (RBC) [Mass/Vol] 34.2 g/dL Normal 29.9-35.2 [facility] Comment on above: Performed By: #### O VAPE #### [facility] [address] [place] [address] Dr. Juliocesar Young MCV (RBC) [Entitic vol] 90.6 fL Normal 81.0-99.0 [facility] Comment on above: Performed By: #### O VAPE #### [facility] [address] [place] [address] Dr. Juliocesar Young MONO # 0.8 103/ul Normal 0.3-0.8 [facility] Comment on above: Performed By: #### O VAPE #### [facility] [address] [place] [address] Dr. Juliocesar Young Monocytes/100 WBC (Bld) 9.9 % Normal 1.7-12.0 [facility] Comment on above: Performed By: #### O VAPE #### [facility] [address] [place] [address] Dr. Juliocesar Young NEUT # 5.7 103/ul Normal 1.4-6.5 [facility] Comment on above: Performed By: #### O VAPE #### [facility] [address] [place] [address] Dr. Juliocesar Young Neutrophils/100 WBC (Bld) 72.3 % Normal 43.0-75.0 [facility] Comment on above: Performed By: #### O VAPE #### [facility] [address] [place] [address] Dr. Juliocesar Young Platelet mean volume (Bld) [Entitic vol] 10.7 fL Normal 9.5-13.5 [facility] Comment on above: Performed By: #### O VAPE #### [facility] [address] [place] [address] Dr. Juliocesar Young PLT 199 103/ul Normal 150-450 [facility] Comment on above: Performed By: #### O VAPE #### [facility] [address] [place] [address] Dr. Juliocesar Young RBC 4.58 106/ul Normal 4.20-5.40 [facility] Comment on above: Performed By: #### O VAPE #### [facility] [address] [place] [address] Dr. Juliocesar Yonug WBC 7.9 103/ul Normal 4.0-11.0 [facility] Comment on above: Performed By: #### O VAPE #### [facility] [address] [place] [address] Dr. Juliocesar Young LDHon 07-18-2022 LDH 169 U/L Normal 81-234 [facility] Comment on above: Performed By: #### L ACTFQ #### [facility] [address] [place] [address] Dr. Juliocesar Young PHOSPHORUSon 07-18-2022 Phosphate [Mass/Vol] 3.5 mg/dL Normal 2.6-4.7 [facility] Comment on above: Performed By: #### L ACTFQ #### [facility] [address] [address] [address] Juliocesar Young PROF 14(COMP METB)on 022 Albumin [Mass/Vol] 3.5 g/dL Normal 3.4-5.0 [facility] Comment on above: Performed By: #### L ACTFQ #### [facility] [address] [address] [address] Juliocesar Young Albumin/Globulin [Mass ratio] 1.0 {ratio} Normal [facility] Comment on above: Performed By: #### L ACTFQ #### [facility] [address] [address] [address] Juliocesar Young ALP [Catalytic activity/Vol] 103 U/L Normal 46-116 [facility] Comment on above: Performed By: #### L ACTFQ #### [facility] [address] [address] [address] Juliocesar Young ALT [Catalytic activity/Vol] 10 U/L Critically low 14-59 [facility] Comment on above: Performed By: #### L ACTFQ #### [facility] [address] [address] [address] Juliocesar Young Anion gap [Moles/Vol] 11.9 mmol/L Normal [facility] Comment on above: Performed By: #### L ACTFQ #### [facility] [address] [address] [address] Juliocesar Young AST [Catalytic activity/Vol] 11 U/L Critically low 15-37 [facility] Comment on above: Performed By: #### L ACTFQ #### [facility] [address] [address] [address] Juliocesar Young Bilirubin [Mass/Vol] 0.4 mg/dL Normal 0.2-1.0 [facility] Comment on above: Performed By: #### L ACTFQ #### [facility] [address] [address] [address] Juliocesar Young Calcium [Mass/Vol] 8.7 mg/dL Normal 8.5-10.1 [facility] Comment on above: Performed By: #### L ACTFQ #### [facility] [address] [address] [address] Juliocesar Young Chloride [Moles/Vol] 105 mmol/L Normal 98-107 [facility] Comment on above: Performed By: #### L ACTFQ #### [facility] [address] [address] [address] Juliocesar Young CO2 [Moles/Vol] 25.1 mmol/L Normal 21.0-32.0 [facility] Comment on above: Performed By: #### L ACTFQ #### [facility] [address] [address] [address] Juliocesar Young Creatinine [Mass/Vol] 0.68 mg/dL Normal 0.55-1.02 [facility] Comment on above: Performed By: #### L ACTFQ #### [facility] [address] [place] [address] Dr. Juliocesar Young EGFR-AF ANGOLAN >60 Normal >=60 [facility] Comment on above: Performed By: #### L ACTFQ #### [facility] [address] [address] [address] Juliocesar Young EGFR-NON AF ANGOLAN >60 Normal >=60 [facility] Comment on above: Performed By: #### L ACTFQ #### [facility] [address] [address] [address] Juliocesar Young Globulin (S) [Mass/Vol] 3.6 g/dL Normal [facility] Comment on above: Performed By: #### L ACTFQ #### [facility] [address] [address] [address] Juliocesar Young Glucose [Mass/Vol] 101 mg/dL Normal 74-106 [facility] Comment on above: Performed By: #### L ACTFQ #### [facility] [address] [address] [address] Juliocesar Young Potassium [Moles/Vol] 4.0 mmol/L Normal 3.5-5.1 [facility] Comment on above: Performed By: #### L ACTFQ #### [facility] [address] [place] [address] Dr. Juliocesar Young Protein [Mass/Vol] 7.1 g/dL Normal 6.4-8.2 [facility] Comment on above: Performed By: #### L ACTFQ #### [facility] [address] [place] [address] Dr. Juliocesar Young Sodium [Moles/Vol] 138 mmol/L Normal 136-145 [facility] Comment on above: Performed By: #### L ACTFQ #### [facility] [address] [place] [address] Dr. Juliocesar Young Urea nitrogen [Mass/Vol] 9.0 mg/dL Normal 7.0-18.0 [facility] Comment on above: Performed By: #### L ACTFQ #### [facility] [address] [place] [address] Dr. Juliocesar Young Urea nitrogen/Creatinine [Mass ratio] 13.2 mg/mg Normal [facility] Comment on above: Performed By: #### L ACTFQ #### [facility] [address] [place] [address] Dr. Juliocesar Young URIC ACID SERUMon 07-18-2022 Urate [Mass/Vol] 2.5 mg/dL Critically low 2.6-6.0 [facility] Comment on above: Performed By: #### O VAPE #### [facility] [address] [place] [address] Dr. Juliocesar Young CBC AUTO DIFFon 04-04-2022 BASO # 0.0 103/ul Normal 0.0-0.1 [facility] Comment on above: Performed By: #### U JORI, PHOS, CMP, LDH #### [facility] [address] [place] [address] Dr. Juliocesar Young Basophils/100 WBC (Bld) 0.7 % Normal 0.2-2.0 [facility] Comment on above: Performed By: #### U JORI, PHOS, CMP, LDH #### [facility] [address] [place] [address] Dr. Juliocesar Young EO # 0.1 103/ul Normal 0.0-0.7 [facility] Comment on above: Performed By: #### U JORI, PHOS, CMP, LDH #### [facility] [address] [place] [address] Dr. Juliocesar Young Eosinophils/100 WBC (Bld) 2.5 % Normal 0.9-7.0 [facility] Comment on above: Performed By: #### U JORI, PHOS, CMP, LDH #### [facility] [address] [place] [address] Dr. Juliocesar Young Erythrocyte distribution width (RBC) [Ratio] 14.1 % Normal 11.0-15.0 [facility] Comment on above: Performed By: #### U JORI, PHOS, CMP, LDH #### [facility] [address] [place] [address] Dr. Juliocesar Young Hematocrit (Bld) [Volume fraction] 43.7 % Normal 36.0-48.0 [facility] Comment on above: Performed By: #### U JORI, PHOS, CMP, LDH #### [facility] [address] [place] [address] Dr. Juliocesar Young Hemoglobin (Bld) [Mass/Vol] 14.5 g/dL Normal 12.0-16.0 [facility] Comment on above: Performed By: #### U JORI, PHOS, CMP, LDH #### [facility] [address] [place] [address] Dr. Juliocesar Young IG # 0.01 10e3/ul Normal 0.00-0.03 [facility] Comment on above: Performed By: #### U JORI, PHOS, CMP, LDH #### [facility] [address] [place] [address] Dr. Juliocesar Young IG % 0.2 % Normal 0.0-0.5 [facility] Comment on above: Performed By: #### U JORI, PHOS, CMP, LDH #### [facility] [address] [place] [address] Dr. Juliocesar Young LYMPH # 1.2 103/ul Normal 1.2-3.8 [facility] Comment on above: Performed By: #### U JORI, PHOS, CMP, LDH #### [facility] [address] [place] [address] Dr. Juliocesar Young Lymphocytes/100 WBC (Bld) 26.6 % Normal 20.5-60.0 [facility] Comment on above: Performed By: #### U JORI, PHOS, CMP, LDH #### [facility] [address] [address] [address] Juliocesar Young MANUAL DIFF REQ NO Normal [facility] Comment on above: Performed By: #### U JORI, PHOS, CMP, LDH #### [facility] [address] [place] [address] Dr. Juliocesar Young MCH (RBC) [Entitic mass] 30.0 pg Normal 26.7-34.0 [facility] Comment on above: Performed By: #### U JORI, PHOS, CMP, LDH #### [facility] [address] [place] [address] Dr. Juliocesar Young MCHC (RBC) [Mass/Vol] 33.2 g/dL Normal 29.9-35.2 [facility] Comment on above: Performed By: #### U JORI, PHOS, CMP, LDH #### [facility] [address] [place] [address] Dr. Juliocesar Young MCV (RBC) [Entitic vol] 90.5 fL Normal 81.0-99.0 [facility] Comment on above: Performed By: #### U JORI, PHOS, CMP, LDH #### [facility] [address] [place] [address] Dr. Juliocesar Young MONO # 0.6 103/ul Normal 0.3-0.8 [facility] Comment on above: Performed By: #### U JORI, PHOS, CMP, LDH #### [facility] [address] [place] [address] Dr. Juliocesar Young Monocytes/100 WBC (Bld) 13.0 % Critically high 1.7-12.0 [facility] Comment on above: Performed By: #### U JORI, PHOS, CMP, LDH #### [facility] [address] [address] [address] Juliocesar Young NEUT # 2.5 103/ul Normal 1.4-6.5 [facility] Comment on above: Performed By: #### U JORI, PHOS, CMP, LDH #### [facility] [address] [address] [address] Juliocesar Young Neutrophils/100 WBC (Bld) 57.0 % Normal 43.0-75.0 [facility] Comment on above: Performed By: #### U JORI, PHOS, CMP, LDH #### [facility] [address] [address] [address] Juliocesar Young Platelet mean volume (Bld) [Entitic vol] 11.0 fL Normal 9.5-13.5 [facility] Comment on above: Performed By: #### U JORI, PHOS, CMP, LDH #### [facility] [address] [address] [address] Juliocesar Young PLT 156 103/ul Normal 150-450 [facility] Comment on above: Performed By: #### U JORI, PHOS, CMP, LDH #### [facility] [address] [place] [address] Dr. Juliocesar Young RBC 4.83 106/ul Normal 4.20-5.40 [facility] Comment on above: Performed By: #### U JORI, PHOS, CMP, LDH #### [facility] [address] [address] [address] Juliocesar Young WBC 4.3 103/ul Normal 4.0-11.0 [facility] Comment on above: Performed By: #### U JORI, PHOS, CMP, LDH #### [facility] [address] [place] [address] Dr. Juliocesar Young LDHon 04-04-2022 LDH 256 U/L Critically high 81-234 [facility] Comment on above: Performed By: #### U JORI, PHOS, CMP, LDH #### [facility] [address] [place] [address] Dr. Juliocesar Young PHOSPHORUSon 04-04-2022 Phosphate [Mass/Vol] 3.4 mg/dL Normal 2.6-4.7 [facility] Comment on above: Performed By: #### U JORI, PHOS, CMP, LDH #### [facility] [address] [address] [address] Juliocesar Young PROF 14(COMP METB)on 022 Albumin [Mass/Vol] 3.6 g/dL Normal 3.4-5.0 [facility] Comment on above: Performed By: #### U JORI, PHOS, CMP, LDH #### [facility] [address] [address] [address] Juliocesar Young Albumin/Globulin [Mass ratio] 1.2 {ratio} Normal [facility] Comment on above: Performed By: #### U JORI, PHOS, CMP, LDH #### [facility] [address] [place] [address] Dr. Juliocesar Young ALP [Catalytic activity/Vol] 66 U/L Normal 46-116 [facility] Comment on above: Performed By: #### U JORI, PHOS, CMP, LDH #### [facility] [address] [place] [address] Dr. Juliocesar Young ALT [Catalytic activity/Vol] 38 U/L Normal 14-59 [facility] Comment on above: Performed By: #### U JORI, PHOS, CMP, LDH #### [facility] [address] [address] [address] Juliocesar Young Anion gap [Moles/Vol] 14.7 mmol/L Normal [facility] Comment on above: Performed By: #### U JORI, PHOS, CMP, LDH #### [facility] [address] [address] [address] Juliocesar Young AST [Catalytic activity/Vol] 24 U/L Normal 15-37 [facility] Comment on above: Performed By: #### U JORI, PHOS, CMP, LDH #### [facility] [address] [place] [address] Dr. Juliocesar Young Bilirubin [Mass/Vol] 0.6 mg/dL Normal 0.2-1.0 [facility] Comment on above: Performed By: #### U JORI, PHOS, CMP, LDH #### [facility] [address] [place] [address] Dr. Juliocesar Young Calcium [Mass/Vol] 8.8 mg/dL Normal 8.5-10.1 [facility] Comment on above: Performed By: #### U JORI, PHOS, CMP, LDH #### [facility] [address] [address] [address] Juliocesar Young Chloride [Moles/Vol] 108 mmol/L Critically high 98-107 [facility] Comment on above: Performed By: #### U JORI, PHOS, CMP, LDH #### [facility] [address] [place] [address] Dr. Juliocesar Young CO2 [Moles/Vol] 21.5 mmol/L Normal 21.0-32.0 [facility] Comment on above: Performed By: #### U JORI, PHOS, CMP, LDH #### [facility] [address] [place] [address] Dr. Juliocesar Young Creatinine [Mass/Vol] 0.63 mg/dL Normal 0.55-1.02 [facility] Comment on above: Performed By: #### U JORI, PHOS, CMP, LDH #### [facility] [address] [place] [address] Dr. Juliocesar Young EGFR-AF ANGOLAN >60 Normal >=60 [facility] Comment on above: Performed By: #### U JORI, PHOS, CMP, LDH #### [facility] [address] [place] [address] Dr. Juliocesar Young EGFR-NON AF ANGOLAN >60 Normal >=60 [facility] Comment on above: Performed By: #### U JORI, PHOS, CMP, LDH #### [facility] [address] [place] [address] Dr. Juliocesar Young Globulin (S) [Mass/Vol] 3.1 g/dL Normal [facility] Comment on above: Performed By: #### U JORI, PHOS, CMP, LDH #### [facility] [address] [address] [address] Juliocesar Young Glucose [Mass/Vol] 116 mg/dL Critically high 74-106 [facility] Comment on above: Performed By: #### U JORI, PHOS, CMP, LDH #### [facility] [address] [place] [address] Dr. Juliocesar Young Potassium [Moles/Vol] 4.2 mmol/L Normal 3.5-5.1 [facility] Comment on above: Performed By: #### U JORI, PHOS, CMP, LDH #### [facility] [address] [place] [address] Dr. Juliocesar Young Protein [Mass/Vol] 6.7 g/dL Normal 6.4-8.2 [facility] Comment on above: Performed By: #### U JORI, PHOS, CMP, LDH #### [facility] [address] [place] [address] Dr. Juliocesar Young Sodium [Moles/Vol] 140 mmol/L Normal 136-145 [facility] Comment on above: Performed By: #### U JORI, PHOS, CMP, LDH #### [facility] [address] [place] [address] Dr. Juliocesar Young Urea nitrogen [Mass/Vol] 7.0 mg/dL Normal 7.0-18.0 [facility] Comment on above: Performed By: #### U JORI, PHOS, CMP, LDH #### [facility] [address] [place] [address] Dr. Juliocesar Young Urea nitrogen/Creatinine [Mass ratio] 11.1 mg/mg Normal [facility] Comment on above: Performed By: #### U JORI, PHOS, CMP, LDH #### [facility] [address] [place] [address] Dr. Juliocesar Young URIC ACID SERUMon 04-04-2022 Urate [Mass/Vol] 3.2 mg/dL Normal 2.6-6.0 [facility] Comment on above: Performed By: #### U JORI, PHOS, CMP, LDH #### [facility] [address] [place] [address] Dr. Juliocesar Young OVA AND PARASITE EXAMINATION on 03-22-2022 Ova + Parasite Exam Final report Normal [facility] Comment on above: Result Comment: Thes e results were obtained using wet preparation(s) and trichrome stained smear. This test does not include testing for Cryptosporidium parvum, Cyclospora, or Microsporidia. Performed By: #### O VAPE #### [facility] [address] [place] [address] Dr. Juliocesar Young Result 1 Comment Normal [facility] Comment on above: Result Comment: No o va, cysts, or parasites seen. . One negative specimen does not rule out the possibility of a parasitic infection. Performed By: #### O VAPE #### [facility] [address] [place] [address] Dr. Juliocesar Young LACTOFERRIN FECAL QUANTon Lactoferrin, Fecal, Quant. <1.00 Normal 0.00-7.24 [facility] Comment on above: Result Comment: Re sults verified by repeat testing . Baseline (normal) 0.00 - 7.24 Elevated >7.24 . An elevated result is indicative of the presence of fecal lactoferrin, a marker of intestinal inflammation. A normal result does not exclude the presence of intestinal inflammation. The test can be used as an in vitro diagnostic aid to distinguish patients with active inflammatory bowel disease (IBD) from those with non-inflammatory irritable bowel syndrome (IBS). Performed By: #### L ACTFQ #### [facility] [address] [place] [address] Dr. Juliocesar Young STOOL CULTUREon 03-20-2022 Campylobacter Culture Final report Normal [facility] Comment on above: Performed By: #### U JORI, PHOS, CMP, LDH #### [facility] [address] [place] [address] Dr. Juliocesar Young E coli Shiga Toxin EIA Negative Normal Negative [facility] Comment on above: Performed By: #### U JORI, PHOS, CMP, LDH #### [facility] [address] [place] [address] Dr. Juliocesar Young Result 1 Comment Normal [facility] Comment on above: Result Comment: No S almonella or Shigella recovered. Performed By: #### U JORI, PHOS, CMP, LDH #### [facility] [address] [place] [address] Dr. Juliocesar Young Result Comment: No C ampylobacter species isolated. Salmonella/Shigella Screen Final report Normal [facility] Comment on above: Performed By: #### U JORI, PHOS, CMP, LDH #### [facility] [address] [place] [address] Dr. Juliocesar Young C. DIFF PCRon 03-16-2022 C. DIFFICILE PCR Negative Normal NEGATIVE [facility] Comment on above: Performed By: #### L ACTFQ #### [facility] [address] [place] [address] Dr. Juliocesar Young OCC BLD IMMUNO SCREENon 03-06 OCCULT BLOOD Negative Normal NEGATIVE [facility] Comment on above: Performed By: #### U JORI, PHOS, CMP, LDH #### [facility] [address] [place] [address] Dr. Juliocesar Young CBC AUTO DIFFon 03-15-2022 BASO # 0.1 103/ul Normal 0.0-0.1 [facility] Comment on above: Performed By: #### O VAPE #### [facility] [address] [place] [address] Dr. Juliocesar Young Basophils/100 WBC (Bld) 1.0 % Normal 0.2-2.0 [facility] Comment on above: Performed By: #### O VAPE #### [facility] [address] [place] [address] Dr. Juliocesar Young EO # 0.1 103/ul Normal 0.0-0.7 [facility] Comment on above: Performed By: #### O VAPE #### [facility] [address] [place] [address] Dr. Juliocesar Young Eosinophils/100 WBC (Bld) 2.2 % Normal 0.9-7.0 [facility] Comment on above: Performed By: #### O VAPE #### [facility] [address] [place] [address] Dr. Juliocesar Young Erythrocyte distribution width (RBC) [Ratio] 13.1 % Normal 11.0-15.0 [facility] Comment on above: Performed By: #### O VAPE #### [facility] [address] [place] [address] Dr. Juliocesar Young Hematocrit (Bld) [Volume fraction] 41.0 % Normal 36.0-48.0 [facility] Comment on above: Performed By: #### O VAPE #### [facility] [address] [place] [address] Dr. Juliocesar Young Hemoglobin (Bld) [Mass/Vol] 13.9 g/dL Normal 12.0-16.0 [facility] Comment on above: Performed By: #### O VAPE #### [facility] [address] [place] [address] Dr. Juliocesar Young IG # 0.01 10e3/ul Normal 0.00-0.03 [facility] Comment on above: Performed By: #### O VAPE #### [facility] [address] [place] [address] Dr. Juliocesar Young IG % 0.2 % Normal 0.0-0.5 [facility] Comment on above: Performed By: #### O VAPE #### [facility] [address] [place] [address] Dr. Juliocesar Young LYMPH # 1.0 103/ul Critically low 1.2-3.8 [facility] Comment on above: Performed By: #### O VAPE #### [facility] [address] [place] [address] Dr. Juliocesar Young Lymphocytes/100 WBC (Bld) 19.4 % Critically low 20.5-60.0 [facility] Comment on above: Performed By: #### O VAPE #### [facility] [address] [place] [address] Dr. Juliocesar Young MANUAL DIFF REQ NO Normal [facility] Comment on above: Performed By: #### O VAPE #### [facility] [address] [place] [address] Dr. Juliocesar Young MCH (RBC) [Entitic mass] 30.1 pg Normal 26.7-34.0 [facility] Comment on above: Performed By: #### O VAPE #### [facility] [address] [place] [address] Dr. Juliocesar Young MCHC (RBC) [Mass/Vol] 33.9 g/dL Normal 29.9-35.2 [facility] Comment on above: Performed By: #### O VAPE #### [facility] [address] [place] [address] Dr. Juliocesar Young MCV (RBC) [Entitic vol] 88.7 fL Normal 81.0-99.0 [facility] Comment on above: Performed By: #### O VAPE #### [facility] [address] [place] [address] Dr. Juliocesar Young MONO # 0.8 103/ul Normal 0.3-0.8 [facility] Comment on above: Performed By: #### O VAPE #### [facility] [address] [place] [address] Dr. Juliocesar Young Monocytes/100 WBC (Bld) 15.2 % Critically high 1.7-12.0 [facility] Comment on above: Performed By: #### O VAPE #### [facility] [address] [place] [address] Dr. Juliocesar Young NEUT # 3.1 103/ul Normal 1.4-6.5 [facility] Comment on above: Performed By: #### O VAPE #### [facility] [address] [place] [address] Dr. Juliocesar Young Neutrophils/100 WBC (Bld) 62.0 % Normal 43.0-75.0 [facility] Comment on above: Performed By: #### O VAPE #### [facility] [address] [place] [address] Dr. Juliocesar Young Platelet mean volume (Bld) [Entitic vol] 10.9 fL Normal 9.5-13.5 [facility] Comment on above: Performed By: #### O VAPE #### [facility] [address] [place], [place] [address] Dr. Juliocesar Young PLT 175 103/ul Normal 150-450 [facility] Comment on above: Performed By: #### O VAPE #### [facility] [address] [address] [address] Juliocesar Young RBC 4.62 106/ul Normal 4.20-5.40 [facility] Comment on above: Performed By: #### O VAPE #### [facility] [address] [address] [address] Juliocesar Young WBC 5.1 103/ul Normal 4.0-11.0 [facility] Comment on above: Performed By: #### O VAPE #### [facility] [address] [place] [address] ABD/PELV W CONon 03-15-[address] ABD/PELV W CON EXAMINATION: CT ABD/PELV W CON HISTORY: DIARRHEA, UNSPECIFIED COMPARISON: None. TECHNIQUE: Enhanced helical acquisition obtained through the abdomen and the pelvis. Dose reduction techniques were achieved by using automated exposure control and/or adjustment of mA and/or kV according to patient size and/or use of iterative reconstruction technique. FINDINGS: Mild diffuse groundglass attenuation involving the visualized lung parenchyma. Unremarkable gallbladder. The liver, spleen, pancreas, adrenal glands and the kidneys are unremarkable. No enlarged lymph nodes within the abdomen or the pelvis. No ascites or focal intraperitoneal fluid collections. Normal appendix. Prior hysterectomy. Small fat-containing umbilical hernia. IMPRESSION: 1. Diverticulosis without radiographic evidence of diverticulitis. Normal appendix. No evidence of bowel obstruction or significant ileus. 2. Nonspecific mild diffuse groundglass attenuation of the visualized lung parenchyma which may be secondary mild edema or potentially may be secondary to mild diffuse infectious or inflammatory pneumonitis. 3. Small fat-containing umbilical hernia. Electronically authenticated by: LAKHWINDER CHANDLER Date: 2022-03-15 17:32 Normal [facility] CULTURE BLOODon 03-15-2022 Microscopic examination of blood, culture Culture Observations: NO GROWTH AT 5 DAYS. Normal [facility] Comment on above: Performed By: #### U JORI, PHOS, CMP, LDH #### [facility] [address] [address] [address] Juliocesar Young Microscopic examination of blood, culture Culture Observations: NO GROWTH AT 5 DAYS. Normal [facility] Comment on above: Performed By: #### U JORI, PHOS, CMP, LDH #### [facility] [address] [address] [address] Juliocesar Young ER URINE PROFILEon 2 Bilirubin Ql (U) Negative Normal NEGATIVE [facility] Comment on above: Performed By: #### O VAPE #### [facility] [address] [place] [address] Dr. Juliocesar Young Clarity (U) CLEAR Normal CLEAR [facility] Comment on above: Performed By: #### O VAPE #### [facility] [address] [place] [address] Dr. Juliocesar Young Color (U) LT. YELLOW Normal YELLOW [facility] Comment on above: Performed By: #### O VAPE #### [facility] [address] [place] [address] Dr. Juliocesar Young ERUAHDeisy A micrscopic examination will be performed if indicated. Normal [facility] Comment on above: Performed By: #### O VAPE #### [facility] [address] [place] [address] Dr. Juliocesar Young Glucose Ql (U) Negative Normal NEGATIVE [facility] Comment on above: Performed By: #### O VAPE #### [facility] [address] [place] [address] Dr. Juliocesar Young Hemoglobin Ql (U) Negative Normal NEGATIVE [facility] Comment on above: Performed By: #### O VAPE #### [facility] [address] [place] [address] Dr. Juliocesar Young Ketones Ql (U) 15 mg/dl Abnormal NEGATIVE [facility] Comment on above: Performed By: #### O VAPE #### [facility] [address] [place] [address] Dr. Juliocesar Young LEUKOCYTES Negative Normal NEGATIVE [facility] Comment on above: Performed By: #### O VAPE #### [facility] [address] [place] [address] Dr. Juliocesar Young Nitrite Ql (U) Negative Normal NEGATIVE [facility] Comment on above: Performed By: #### O VAPE #### [facility] [address] [place] [address] Dr. Juliocesar Young pH (U) 6.0 [pH] Normal 5-9 [facility] Comment on above: Performed By: #### O VAPE #### [facility] [address] [place] [address] Dr. Juliocesar Young SPEC GRAVITY 1.005 Normal 1.005-<=1.025 [facility] Comment on above: Performed By: #### O VAPE #### [facility] [address] [place] [address] Dr. Juliocesar Young UA PROTEIN Negative Normal NEGATIVE/ TRACE [facility] Comment on above: Performed By: #### O VAPE #### [facility] [address] [place] [address] Dr. Juliocesar Young UR MICRO IND NOT INDICATED Normal [facility] Comment on above: Performed By: #### O VAPE #### [facility] [address] [place] [address] Dr. Juliocesar Young Urobilinogen Qn (U) 0.2 {Niharika'U}/dL Normal 0.2 - 1. 0 [facility] Comment on above: Performed By: #### O VAPE #### [facility] [address] [place] [address] Dr. Juliocesar Young LACTATE/LACTIC ACIDon 2021 Lactate [Moles/Vol] 1.0 mmol/L Normal 0.4-1.9 [facility] Comment on above: Performed By: #### U JORI, PHOS, CMP, LDH #### [facility] [address] [place] [address] Dr. Juliocesar Young LIPASEon 03-15-2022 Lipase [Catalytic activity/Vol] 77.0 U/L Normal 73.0-393.0 [facility] Comment on above: Performed By: #### U JORI, PHOS, CMP, LDH #### [facility] [address] [place] [address] Dr. Juliocesar Young PROF 14(COMP METB)on 022 Albumin [Mass/Vol] 3.8 g/dL Normal 3.4-5.0 [facility] Comment on above: Performed By: #### U JORI, PHOS, CMP, LDH #### [facility] [address] [place] [address] Dr. Juliocesar Young Albumin/Globulin [Mass ratio] 1.2 {ratio} Normal [facility] Comment on above: Performed By: #### U JORI, PHOS, CMP, LDH #### [facility] [address] [place] [address] Dr. Juliocesar Young ALP [Catalytic activity/Vol] 86 U/L Normal 46-116 [facility] Comment on above: Performed By: #### U JORI, PHOS, CMP, LDH #### [facility] [address] [place] [address] Dr. Juliocesar Young ALT [Catalytic activity/Vol] 19 U/L Normal 14-59 [facility] Comment on above: Performed By: #### U JROI, PHOS, CMP, LDH #### [facility] [address] [place] [address] Dr. Juliocesar Young Anion gap [Moles/Vol] 13.0 mmol/L Normal [facility] Comment on above: Performed By: #### U JORI, PHOS, CMP, LDH #### [facility] [address] [place] [address] Dr. Juliocesar Young AST [Catalytic activity/Vol] 20 U/L Normal 15-37 [facility] Comment on above: Performed By: #### U JORI, PHOS, CMP, LDH #### [facility] [address] [place] [address] Dr. Juliocesar Young Bilirubin [Mass/Vol] 1.1 mg/dL Critically high 0.2-1.0 [facility] Comment on above: Performed By: #### U JORI, PHOS, CMP, LDH #### [facility] [address] [address] [address] Juliocesar Young Calcium [Mass/Vol] 8.9 mg/dL Normal 8.5-10.1 [facility] Comment on above: Performed By: #### U JORI, PHOS, CMP, LDH #### [facility] [address] [address] [address] Juliocesar Young Chloride [Moles/Vol] 103 mmol/L Normal 98-107 [facility] Comment on above: Performed By: #### U JORI, PHOS, CMP, LDH #### [facility] [address] [address] [address] Juliocesar Young CO2 [Moles/Vol] 26.6 mmol/L Normal 21.0-32.0 [facility] Comment on above: Performed By: #### U JORI, PHOS, CMP, LDH #### [facility] [address] [place] [address] Dr. Juliocesar Young Creatinine [Mass/Vol] 0.68 mg/dL Normal 0.55-1.02 [facility] Comment on above: Performed By: #### U JORI, PHOS, CMP, LDH #### [facility] [address] [address] [address] Juliocesar Young EGFR-AF ANGOLAN >60 Normal >=60 [facility] Comment on above: Performed By: #### U JORI, PHOS, CMP, LDH #### [facility] [address] [address] [address] Juliocesar Young EGFR-NON AF ANGOLAN >60 Normal >=60 [facility] Comment on above: Performed By: #### U JORI, PHOS, CMP, LDH #### [facility] [address] [address] [address] Juliocesar Young Globulin (S) [Mass/Vol] 3.3 g/dL Normal [facility] Comment on above: Performed By: #### U JORI, PHOS, CMP, LDH #### [facility] [address] [address] [address] Juliocesar Young Glucose [Mass/Vol] 90 mg/dL Normal 74-106 [facility] Comment on above: Performed By: #### U JORI, PHOS, CMP, LDH #### [facility] [address] [address] [address] Juliocesar Young Potassium [Moles/Vol] 3.6 mmol/L Normal 3.5-5.1 [facility] Comment on above: Performed By: #### U JORI, PHOS, CMP, LDH #### [facility] [address] [address] [address] Juliocesar Young Protein [Mass/Vol] 7.1 g/dL Normal 6.4-8.2 [facility] Comment on above: Performed By: #### U JORI, PHOS, CMP, LDH #### [facility] [address] [place] [address] Dr. Juliocesar Young Sodium [Moles/Vol] 139 mmol/L Normal 136-145 [facility] Comment on above: Performed By: #### U JORI, PHOS, CMP, LDH #### [facility] [address] [address] [address] Juliocesar Young Urea nitrogen [Mass/Vol] 6.0 mg/dL Critically low 7.0-18.0 [facility] Comment on above: Performed By: #### U JORI, PHOS, CMP, LDH #### [facility] [address] [place] [address] Dr. Juliocesar Young Urea nitrogen/Creatinine [Mass ratio] 8.8 mg/mg Normal [facility] Comment on above: Performed By: #### U JORI, PHOS, CMP, LDH #### [facility] [address] [place] [address] Dr. Juliocesar Young MRI THORACIC SPINE W WO CONT [facility] 03-13-2022 MRI THORACIC SPINE W WO CONTRAST [facility] Department of Radiology [address] [place] [id number] ===== Patient Name: DIAMOND GUERRERO : 1975 Sex: F Age: Race: White Pt. Location: 28 Patient Status: D Ordered Date: 02/09/2022 5:25:00 PM Completed Date: 03/13/2022 10:31 AM Requesting Provider: BOONE SALINAS Attending Provider: BOONE SALINAS Report Copy To: Signs & Symptoms: M48.04 Spinal stenosis, thoracic region I10 History: [place], c-spine/ankle hardware, tubal clips (noted) Comments: Exam: MRI THORACIC SPINE W WO CONTRAST ===== MRI THORACIC SPINE W WO CONTRAST 03/13/2022 10:31 AM CLINICAL INDICATIONS: M48.04 Spinal stenosis, thoracic region I10 TECHNOLOGIST COMMENTS: c/o mid back pain QUESTION FOR THE RADIOLOGIST: PROTOCOL: The following pulse sequences were utilized when imaging the thoracic spine: localizer, sagittal T2, sagittal T1, sagittal STIR, axial T2, and axial T1. Post contrast images obtained in sagittal T1 and axial T1. CONTRAST: Contrast: CLARISCAN .5mmol, 20 milliliter, Intravenous COMPARISON: None. FINDINGS: There is susceptibility artifact in the lower cervical spine compatible with cervical fusion. At T1-T2: No disc bulge or herniation. No central canal stenosis or neural foraminal narrowing. At T2-T3: No disc bulge or herniation. No central canal stenosis or neural foraminal narrowing. At T3-T4: No disc bulge or herniation. No central canal stenosis or neural foraminal narrowing. At T4-T5: No disc bulge or herniation. No central canal stenosis or neural foraminal narrowing. At T5-T6: Mild broad-based diffuse disc bulge and mild right paracentral disc protrusion with mild flattening and the anterior thecal sac. No cord compression. Minimal neural foraminal narrowing. At T6-T7: Mild broad-based diffuse disc bulge without central canal stenosis or neural foraminal narrowing. At T7-T8: Mild broad-based diffuse disc bulge and central disc protrusion with mild central canal stenosis. No cord compression. At T8-T9: Mild uncovertebral joint degenerative change. No central canal stenosis or neural foraminal narrowing. At T9-T10: Broad-based diffuse disc bulge with mild facet hypertrophic changes and mild central canal stenosis. No neural foraminal narrowing. At T10-T11: Broad-based diffuse disc bulge and facet hypertrophic change of mild central canal stenosis and mild bilateral neural foraminal narrowing. At T11-T12: Broad-based diffuse disc bulge and facet hypertrophic change. Mild central canal stenosis and mild left greater than right neural foraminal narrowing. At T12-L1: Broad-based diffuse disc bulge and central disc protrusion with [id number] central canal stenosis and moderate right and mild to moderate left neural foraminal narrowing. IMPRESSION: Multilevel degenerative disc disease as above with central canal narrowing and neural foraminal narrowing noted. Electronically signed: Kandi Marquez. Transcribed by: [email or web address], User Resident: Electronically Signed by: KANDI MARQUEZ @ 03/14/2022 08:51 AM Normal [facility] CBC AUTO DIFFon 02-23-2022 BASO # 0.0 103/ul Normal 0.0-0.1 [facility] Comment on above: Performed By: #### U JORI, PHOS, CMP, LDH #### [facility] [address] [address] [address] Juliocesar Young Basophils/100 WBC (Bld) 0.4 % Normal 0.2-2.0 [facility] Comment on above: Performed By: #### U JORI, PHOS, CMP, LDH #### [facility] [address] [address] [address] Juliocesar Young EO # 0.1 103/ul Normal 0.0-0.7 [facility] Comment on above: Performed By: #### U JORI, PHOS, CMP, LDH #### [facility] [address] [address] [address] Juliocesar Young Eosinophils/100 WBC (Bld) 1.6 % Normal 0.9-7.0 [facility] Comment on above: Performed By: #### U JORI, PHOS, CMP, LDH #### [facility] [address] [address] [address] Juliocesar Young Erythrocyte distribution width (RBC) [Ratio] 13.2 % Normal 11.0-15.0 [facility] Comment on above: Performed By: #### U JORI, PHOS, CMP, LDH #### [facility] [address] [place] [address] Dr. Juliocesar Young Hematocrit (Bld) [Volume fraction] 42.4 % Normal 36.0-48.0 [facility] Comment on above: Performed By: #### U JORI, PHOS, CMP, LDH #### [facility] [address] [place] [address] Dr. Juliocesar Young Hemoglobin (Bld) [Mass/Vol] 14.3 g/dL Normal 12.0-16.0 [facility] Comment on above: Performed By: #### U JORI, PHOS, CMP, LDH #### [facility] [address] [place] [address] Dr. Juliocesar Young IG # 0.02 10e3/ul Normal 0.00-0.03 [facility] Comment on above: Performed By: #### U JORI, PHOS, CMP, LDH #### [facility] [address] [place] [address] Dr. Juliocesar Young IG % 0.3 % Normal 0.0-0.5 [facility] Comment on above: Performed By: #### U JORI, PHOS, CMP, LDH #### [facility] [address] [place] [address] Dr. Juliocesar Young LYMPH # 1.5 103/ul Normal 1.2-3.8 [facility] Comment on above: Performed By: #### U JORI, PHOS, CMP, LDH #### [facility] [address] [place] [address] Dr. Juliocesar Young Lymphocytes/100 WBC (Bld) 22.3 % Normal 20.5-60.0 [facility] Comment on above: Performed By: #### U JORI, PHOS, CMP, LDH #### [facility] [address] [place] [address] Dr. Juliocesar Young MANUAL DIFF REQ NO Normal [facility] Comment on above: Performed By: #### U JORI, PHOS, CMP, LDH #### [facility] [address] [place] [address] Dr. Juliocesar Young MCH (RBC) [Entitic mass] 30.1 pg Normal 26.7-34.0 [facility] Comment on above: Performed By: #### U JORI, PHOS, CMP, LDH #### [facility] [address] [place] [address] Dr. Juliocesar Young MCHC (RBC) [Mass/Vol] 33.7 g/dL Normal 29.9-35.2 [facility] Comment on above: Performed By: #### U JORI, PHOS, CMP, LDH #### [facility] [address] [place] [address] Dr. Juliocesar Young MCV (RBC) [Entitic vol] 89.3 fL Normal 81.0-99.0 [facility] Comment on above: Performed By: #### U JORI, PHOS, CMP, LDH #### [facility] [address] [place] [address] Dr. Juliocesar Young MONO # 0.8 103/ul Normal 0.3-0.8 [facility] Comment on above: Performed By: #### U JORI, PHOS, CMP, LDH #### [facility] [address] [place] [address] Dr. Juliocesar Young Monocytes/100 WBC (Bld) 11.7 % Normal 1.7-12.0 [facility] Comment on above: Performed By: #### U JORI, PHOS, CMP, LDH #### [facility] [address] [place] [address] Dr. Juliocesar Young NEUT # 4.3 103/ul Normal 1.4-6.5 [facility] Comment on above: Performed By: #### U JORI, PHOS, CMP, LDH #### [facility] [address] [place] [address] Dr. Juliocesar Young Neutrophils/100 WBC (Bld) 63.7 % Normal 43.0-75.0 [facility] Comment on above: Performed By: #### U JORI, PHOS, CMP, LDH #### [facility] [address] [address] [address] Juliocesar Young Platelet mean volume (Bld) [Entitic vol] 10.7 fL Normal 9.5-13.5 [facility] Comment on above: Performed By: #### U JORI, PHOS, CMP, LDH #### [facility] [address] [address] [address] Juliocesar Young PLT 190 103/ul Normal 150-450 [facility] Comment on above: Performed By: #### U JORI, PHOS, CMP, LDH #### [facility] [address] [address] [address] Juliocesar Young RBC 4.75 106/ul Normal 4.20-5.40 [facility] Comment on above: Performed By: #### U JORI, PHOS, CMP, LDH #### [facility] [address] [address] [address] Juliocesar Yougn WBC 6.8 103/ul Normal 4.0-11.0 [facility] Comment on above: Performed By: #### U JORI, PHOS, CMP, LDH #### [facility] [address] [place] [address] Dr. Juliocesar Young LDHon 02-23-2022 LDH 206 U/L Normal 81-234 [facility] Comment on above: Performed By: #### O VAPE #### [facility] [address] [place] [address] Dr. Juliocesar Young PHOSPHORUSon 02-23-2022 Phosphate [Mass/Vol] 3.8 mg/dL Normal 2.6-4.7 [facility] Comment on above: Performed By: #### O VAPE #### [facility] [address] [place] [address] Dr. Juliocesar Young PROF 14(COMP METB)on 022 Albumin [Mass/Vol] 3.3 g/dL Critically low 3.4-5.0 [facility] Comment on above: Performed By: #### O VAPE #### [facility] [address] [address] [address] Juliocesar Young Albumin/Globulin [Mass ratio] 0.9 {ratio} Normal [facility] Comment on above: Performed By: #### O VAPE #### [facility] [address] [address] [address] Juliocesar Young ALP [Catalytic activity/Vol] 90 U/L Normal 46-116 [facility] Comment on above: Performed By: #### O VAPE #### [facility] [address] [address] [address] Juliocesar Young ALT [Catalytic activity/Vol] 18 U/L Normal 14-59 [facility] Comment on above: Performed By: #### O VAPE #### [facility] [address] [place] [address] Dr. Juliocesar Young Anion gap [Moles/Vol] 12.0 mmol/L Normal [facility] Comment on above: Performed By: #### O VAPE #### [facility] [address] [address] [address] Juliocesar Young AST [Catalytic activity/Vol] 14 U/L Critically low 15-37 [facility] Comment on above: Performed By: #### O VAPE #### [facility] [address] [place] [address] Dr. Juliocesar Young Bilirubin [Mass/Vol] 0.4 mg/dL Normal 0.2-1.0 [facility] Comment on above: Performed By: #### O VAPE #### [facility] [address] [place] [address] Dr. Juliocesar Young Calcium [Mass/Vol] 8.4 mg/dL Critically low 8.5-10.1 [facility] Comment on above: Performed By: #### O VAPE #### [facility] [address] [place] [address] Dr. Juliocesar Young Chloride [Moles/Vol] 107 mmol/L Normal 98-107 [facility] Comment on above: Performed By: #### O VAPE #### [facility] [address] [address] [address] Juliocesar Young CO2 [Moles/Vol] 25.1 mmol/L Normal 21.0-32.0 [facility] Comment on above: Performed By: #### O VAPE #### [facility] [address] [address] [address] Juliocesar Young Creatinine [Mass/Vol] 0.64 mg/dL Normal 0.55-1.02 [facility] Comment on above: Performed By: #### O VAPE #### [facility] [address] [address] [address] Juliocesar Young EGFR-AF ANGOLAN >60 Normal >=60 [facility] Comment on above: Performed By: #### O VAPE #### [facility] [address] [place] [address] Dr. Juliocesar Young EGFR-NON AF ANGOLAN >60 Normal >=60 [facility] Comment on above: Performed By: #### O VAPE #### [facility] [address] [place] [address] Dr. Juliocesar Young Globulin (S) [Mass/Vol] 3.5 g/dL Normal [facility] Comment on above: Performed By: #### O VAPE #### [facility] [address] [place] [address] Dr. Juliocesar Young Glucose [Mass/Vol] 105 mg/dL Normal 74-106 [facility] Comment on above: Performed By: #### O VAPE #### [facility] [address] [place] [address] Dr. Juliocesar Young Potassium [Moles/Vol] 4.1 mmol/L Normal 3.5-5.1 [facility] Comment on above: Performed By: #### O VAPE #### [facility] [address] [place] [address] Dr. Juliocesar Young Protein [Mass/Vol] 6.8 g/dL Normal 6.4-8.2 [facility] Comment on above: Performed By: #### O VAPE #### [facility] [address] [place], [place] [address] Dr. Juliocesar Young Sodium [Moles/Vol] 140 mmol/L Normal 136-145 [facility] Comment on above: Performed By: #### O VAPE #### [facility] [address] [place], [place] [address] Dr. Juliocesar Young Urea nitrogen [Mass/Vol] 9.0 mg/dL Normal 7.0-18.0 [facility] Comment on above: Performed By: #### O VAPE #### [facility] [address] [address] [address] Juliocesar Young Urea nitrogen/Creatinine [Mass ratio] 14.1 mg/mg Normal [facility] Comment on above: Performed By: #### O VAPE #### [facility] [address] [address] [address] Juliocesar Young URIC ACID SERUMon 02-23-2022 Urate [Mass/Vol] 2.6 mg/dL Normal 2.6-6.0 [facility] Comment on above: Performed By: #### O VAPE #### [facility] [address] [place], [place] [address] Dr. Juliocesar Young Coding Summary.on 02-16-2022 Coding Summary. [id number] Gh0 bWw+PGhlYWQ+LJ4PTUAyK08 bnRMaeA7AS9pBKZ2WNMBDVP MFEJ5LHQ0ubMZ5VPwkF0Rgk iAv FwghsQPjAF95PHp7QKB1hHf lBJcgsQ4zpZCvP6c1RkTiCJ 44pJ30JRmxPQOgAeC9AyIwt jsgbWFy C2tiEsHrlSTgMwr+PHRhYmx lIHdpZHRoPScxMDAlJyBzdH ytGL2ePq8oNGXcPKYvbPvak HNlOiBj s8cgKKMlRSolLE2ahLqmN8V izZH4INFfu3y9Su23bRO+PH HnOIZ0tHavHNnle153FvVjb 9tcQTS6 sRYoDAtgCFY8I34sh8Y0RDO eWRWrTWK3vHK1mX5hpXopex mwS1KwkGQvHbQ7LBF9zTFpg T9zoPzs epnvjK7wUke+W47QAP1VHRO HTJ1VBfi8D4PzAhpxeKK+PC 71SJUlNS68vLQqzEQfs8hhm Sh1VsGz XGAhEZU4fEsvVHzpt8LlPDW iO00qvFTay1R3RRTnuCahsW ElFkQpbWP3uJ6rEGrgacrsq 2hvdzsn Viohw6qkvv01sE88D37qKKv pJZLfBXA5VWDcUXQdpOtjno 1buO2aWd3+VEtrd4kdy6cqu Kk8LgQx RUMtaqWsxRksJZM5x7McIw7 4E8PhgXsqp8DcAlw3xz97tP Tjh4S9xUX1DVytFBHkpX4rJ WxlZnQ6 BTQwFhJrxR01cJGyCRbxVz0 aqMdryWcrRK2aOMMikllpKH TqeO4nNRNmnHNowBmqJR4wE TBpbjtm l563XqUsVHT0DDMbsZNfH9O jjD7wUlBnNJZrGYBvC7HohM BnNRtwA103TOxcWtD0BCPwe qNhN3Qz AQEjaWtpEbZ8p3T2Si7Yo7M ygofzEOP8OJhiHNW6EoO3Dj DiLzF5M3MuGdw1EAIyyNnrK V3hI8Dw UTMgybbagfzrrYE2EDPsEWQ qaV39gIPuLXdmOv8uq9X5x2 50VTAaIBZhdM42Om3kgGtvV TBwdCBU iB4ufylrf3bucngqZvGjHKC oSPv7ARh3QEXjlQdqEfNdEH E6ByJ0ORD4rZAwsA2lxWcqp keudO1n Oyc+U63crU3eJYZ8LUB8hlr yYOLbyaLeDQ57DD71Z2TtGv wvdGFibGU+PGRpdiBzdHlsZ L9pYsHw p8nfy6SkHWbmQ6UtYKNpRUi vEln5FDEdBEW7kFI8hN2bBE SoABqsa1H8nJE2P8HmiaGqk f9my8qw QNTjGFugS50zfMWwc8X8COR puQK7JFYxrSjsAcAbeH44Kj c+QPYtzNxzc9UyVfnfw6zxp 6sajUj9 FgTgCUUvzqRwwQxaYRA0e5S jBq27X01vRPkhHSNuCAQyHE BnUUUbiFucjq6vbM9qYx5+P GNvbCB3 xOW9rQ7dBVNiKxL1OZzkS43 2OwFyhWGbEnqkp1bov5esdP p1ReDpVTAfyfYqyPinUJQ2z 3BvPc18 R77qYYddRSApYDEeFZKbWJU pqHgnlz9ahO9bMs6+PC9jb2 lntj26wJ64vQF+VUGmZRT0k WxlPSdw OXYvyA3sWUnhLlJ5CKCsAxY dfT64iJNtHBezVq0zcGfnyF zbST4mOIOsmslpw527VyUod 2xkIDEw pWIzDFjmXFW0H16eo9G4ILO wKKWvETD7pEY3dZ7fkXcpwr ogbGVmdDsgdmVydGljYWwtY NubL231 IHRvcDsnPlBhdGllbnQgTmF zHYx6T4HqIwp9WTUalUibMZ 3phGUePNpbHt6gkCqzbQbbA Y3nAAPf tnbfi801PzCyt2yiILKziJC yIQvxCFI8Q27ng8R1PGXeVR CgOUI4aSP2kX0ncMmzgdsle GVmdDsg dmAuqKcdFAbxZGjvC890TTR osBoeEmIcnxIsXYVrsXT4WV 33OI00kKFyc9S7eCK9L7FqV GRpbmct xzlefDC0WIKtXUZotN05Sq9 ofKzpNv8wOREeZGC5PRNdsZ RhQ2OphH2uYwWeRZVjWGZtT 3RleHQt UEorG569PBopSdZ0EBHpqwM mV5DuDHKrxVepPmI5l5I6Tx 7EA9P2GC41JD91kXTlo8H7p XT8K3Gt JHSyhfbgzwgrjIY0RFInDBJ xpP75Hr5xuAbaEn7kQYRzDV M7WNOhlJFrG0RtkF6iQcNgC DAwMDAw W8QrgVZqNOzcJ912DPleFbD 4CLUpoyReG0ZcGKFjuIusFu O9s9D0Dn5CDVi0OU44VU99a RDcu4W0 mTM4S2QsOLNirffkvwkzuVA 5DPVpKVJsoV81Xo6dvSppFt 4eEEEhOUZ7AJJyhIIrM9Cik G0yYaBg BLYjLREgZ5EekBKrIEspE12 6TTwpUxM6SNHlokWpI2NoGA CimEysTkI8w0W0Gn2JSVXrM X67OHZ0 mVN9IG27JC80R0WdVjbtxJP ibGU+PHRhYmxlIHdpZHRoPS ahBGGuUpWndMkoEB0cDr2pD GVyLWNv uGhcpTFnBqLbk7wmGCAaPYy qMV2stMrkN0HazAT9GCBxn0 i4Lg44G19xD6FppUD+PGNvb HU8nLQ3 oY0nGyNfHcV2HSwwD298LlY peIIbAqwpn0sio7rhuYe7Mh I3FERydxDedAehLFU3z1JkN r43F98s IHdpZHRoPSIxNSUiIHZhbGl rpp6eyY1zKj5+WUNiiPN5nD O5jC2zZaDaAgP3IJsoD635Y nRvcCIv Kttuj6upz8vneZi0FpTcKBR aoqBopLglLXS9o9WrMn43Y4 DwwGdyt5HhZpl7ya81zXIha 8L1jRN9 D3SpTPKbdhpszIElaNikLN3 oJLPqzhmmZFMskJ1aEOCwK3 l1KfNpWyL1WRkcW3SvjvB2H DEwcHQg KBjeCQK7J35ep4V4IHXxLUA qOQH3nND5bL8weVnocfjbtG VmdDsgdmVydGljYWwtYWxpZ 246IHRv eAlfSPOgbU1qITVdgGLbqNt tZE5oIQRdkiwlPeLTTMZCHW isUU6CYACVGRK4P8QtZbt1S CBzdHls RF2qzTTrKClmEu7efKwotQs vRU2aTNResuqsCZRxfA9oAU RunNShlRfhQY6bKLMbqsepc 250OiAx UHU9TPEbzQNvV2IpdJ4sAcG wGCIuHFBnP1TtjKNlWKimZ1 98GLcyUfW9TNNbthRaL7XaW WFsaWdu XfZ2l9I8Oc2dLQ9cRC9cBSk 8JP18FP75mNTbk8E7iXY9B7 TvIXGdpnjhemtzuJH8SHGiC DUwaW47 vDKdJBqxEi0xr7N7f975QBY sRESdeT45Yk2ifDmcEMXatV ZPuS8xxubjn8zfsdbwPeZvR DAwMDt0 XLv8NDYlpMmcZoSvLOX5HqB 2SEO8hZKsiG5fuZrbdxoxpD 9wOyc+ZHevPJAytkO1S5WpE tb3MWAf bNctDL2xcVLvBRczBz7mrMr auNuuHS1aUQLnonbkZYXwxS 3jFGNarRLckCwwDN1wHSSdd bbsr808 EpGyWBF3OTCjsPTzT1GxvW8 dQiQdETInQDFuK0FntEPpXU vmP681LXqyZuN7FAZanpCgQ 2FsLWFs mMkuAfU5e5V3Bx2BFS8brGT 1R8IoSoc9TVDhxHtvYV2weZ XwYIstIp5zmIpbqAloTI7iH TBpbjtw RNAugM3hTTDqeIExpLfkOV7 uIEDudrtey890OqEiBEY4ZU ZoeXSvT8EeeW5vWoXyVEPrI PPcQ5Wv jYOoSAmxY688VHsmJnM1OIW pwgVmT1McHDTawSlnNwE0m4 I9Di6NxDOoFDHmRF87YN70J W64F9Yw PjwvdGFibGU+PHRhYmxlIHd pZHRoPScxMDAlJyBzdHlsZT 7hUf4bMCRsWARnoUzruSQnI yXlw7bm JYKpKOpxCB1yrVjcZ0AruZV 7ABZpb0b8Fn68H08eO8FzjS A+LQWkgWG0rOE4uP7nRqNzE hG8KLvw K450MzVezJFuZxkje3znx4x kbWi6MvFvGMRudvXhkCzeGR K4v2NzPp51X43hIYkjEAWmA SIyMCUi UKAswIepkg3efP0vDz1+PGN wjFC0xZA7eU5dHfRxNbF4ZJ cfX553YxJwbZKpPoheY62sW 3JvdXA+ HKTgWod1GVCdhDpkTV4lhSA kZJwtQs3vCXC9RcXiCdHyAP axY6GyOWWjfeyklnrwhUU8K DAuMDUw fH39Rj3ykAxqOe3sCFLqOZN 0KAMjmFAeH2WfuA1tDkDeSC QaBQCnY5JreQPhOBlyP027Y GxlZnQ7 PDOzkpXzF3UaWGRbjWgaPgO 0e1J4Sw3YmRucdXEvWL7lJs LeMWm1Z7RnYpm9SIMorOlcM W9ddXSj MDwxOj5ljGcumNcvZI2jVHR wvedaw327CdJrh7mbEINkhY YwUEcxFGX2Q48vg8U1KWMyS DAwMDA7 tXG0sF2grXxifdnxgYFfuCr rfsUtjAzzBVhyZEtuD961UV CarBolGeIFGum1U4PeIod6O CBzdHls EV4oaBGlSOfwEa0tuJbvoJt uWK1cLTHbglwwp470GuAif1 zuDLNsdJOySYnrKIY5P88ny 8M0VDKl FAZpGHI7dRX1wP5ugUpwhao gbGVmdDsgdmVydGljYWwtYW dwM354FVGmlOdySe0YXnj9Z 1HyInn5 ROAacNowCK4dvCWdENbtEh4 yvBldgTixSZ6xWVZmschfv3 69NpIrg8bxCEXsrGEmOWymW HP7E51d q9Z6YXVkKZSpTTI2pZS9yA7 hbGlnbjogbGVmdDsgdmVydG pnCRsvBLaqU774WWTvfUzuD lBheWVy OjwvdGQ+LP72zl66S3VqNbo aYet2YKBeINO0eXD4kG0zCD FtAIepa6W1gLX0Y8SjfbTfo l0xr8wy YXBz (more content not included)... Normal [facility] CTA CHESTon 02-08-2022 CTA CHEST [facility] Department of Radiology [address] [place] [id number] ===== Patient Name: DIAMOND GUERRERO : 1975 Sex: F Age: Race: White Pt. Location: 29 Patient Status: O Ordered Date: 02/08/2022 4:00:00 PM Completed Date: 02/08/2022 05:01 PM Requesting Provider: BOONE SALINAS Attending Provider: BOONE SALINAS Report Copy To: SELF, REFERRED Signs & Symptoms: R07.89 Other chest pain I10 History: Mar, hold pt. until after doc is called with results [phone] Comments: , chronic lymphoid leukemia with chest pain C71.10 . Current treatment obinutuzumab and acalabrutinib possible PE Exam: CTA CHEST ===== CTA CHEST 02/08/2022 5:01 PM CLINICAL INDICATIONS: R07.89 Other chest pain I10 TECHNOLOGIST COMMENTS: rt rib pain for 2 months and bilateral lower extremity swelling. QUESTION FOR RADIOLOGISTS: , chronic lymphoid leukemia with chest pain C71.10 . Current treatment obinutuzumab and acalabrutinib possible PE PROTOCOL: Axial CT angiography images were obtained with IV contrast. CONTRAST: Contrast: OMNIPAQUE 350 (LOCM), 100 milliliter, Intravenous TECHNIQUE: Multidetector CT angiography axial slices of the chest were obtained with IV contrast. Multiplanar reformats, MIP, and volume rendered 3-D images were generated on a separate workstation and reviewed to further define anatomy and possible pathology. All CT scans at this facility use dose modulation, iterative reconstruction, and/or weight based dosing when appropriate to reduce radiation dose to as low as reasonably achievable. COMPARISON: None.. FINDINGS : There are no pulmonary arterial filling defects. The lung parenchyma is normal. I see no significant lung nodules. No pleural effusion. Axillary adenopathy has greatly improved. There are 1 cm or less axillary nodes now present. There is no significant mediastinal or hilar adenopathy. IMPRESSION: Negative for pulmonary embolism. Axillary adenopathy has essentially resolved. No lung nodules. Electronically signed: Roxanna Thomas. 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 Current treatment obinutuzumab and acalabrutinib possible PE Consent for Treatmenton Consent for Treatment [id number] D:127 Normal [facility] US Abdomen, Limitedon 2021 US Abdomen, Limited Exam Date/Time: 02/03/2022 09:01 EDT Reason for Exam: RIGHT UPPER QUAD PAIN Report IMPRESSION: NEGATIVE MILDLY LIMITED RIGHT UPPER QUADRANT ULTRASOUND. EXAM: US Abdomen, Limited DATE: 02/03/2022 CLINICAL HISTORY: RIGHT UPPER QUAD PAIN. COMPARISON: None available. TECHNIQUE: Transabdominal ultrasound of the right upper quadrant was performed. FINDINGS: The study is mildly limited by the patient's body habitus. The gallbladder, visualized liver, pancreas, right kidney, and great vessels are unremarkable. There is no significant gallbladder distention, wall thickening, calculi, sludge, pericholecystic fluid, biliary dilatation, or ascites identified. The common duct measures approximately 4 mm at the lai hepatis. FINAL REPORT Dictated: 02/03/2022 4:37 pm Roxanna Phoenix MD Signed (Electronic Signature): 02/03/2022 4:37 pm Signed by: Roxanna Phoenix MD Transcribed by: WERNER Technologist: NATHALIE Normal [facility] Physician Orderon 01-31-2022 Physician Order [id number] D:127 Normal [facility] CBC W MANUAL DIFFon 01-27-20 22 ATYPICAL LYMPH # 0.57 103/ul Normal [facility] Comment on above: Performed By: #### U JORI, PHOS, CMP, LDH #### [facility] [address] [address] [address] Juliocesar Young ATYPICAL LYMPH % 5 % Normal [facility] Comment on above: Performed By: #### U JORI, PHOS, CMP, LDH #### [facility] [address] [place] [address] Dr. Juliocesar Young BAND # Normal 0.0-0.3 [facility] Comment on above: Performed By: #### U JORI, PHOS, CMP, LDH #### [facility] [address] [address] [address] Juliocesar Young BAND % Normal 0-5 [facility] Comment on above: Performed By: #### U JORI, PHOS, CMP, LDH #### [facility] [address] [address] [address] Juliocesar Young BASOM # 0.00 103/ul Normal 0.00-0.10 [facility] Comment on above: Performed By: #### U JORI, PHOS, CMP, LDH #### [facility] [address] [place] [address] Dr. Juliocesar Young BASOM % 0.0 % Critically low 0.2-2.0 [facility] Comment on above: Performed By: #### U JORI, PHOS, CMP, LDH #### [facility] [address] [place] [address] Dr. Juliocesar Young BLAST # Normal [facility] Comment on above: Performed By: #### U JORI, PHOS, CMP, LDH #### [facility] [address] [place] [address] Dr. Juliocesar Young BLAST % Normal [facility] Comment on above: Performed By: #### U JORI, PHOS, CMP, LDH #### [facility] [address] [place] [address] Dr. Juliocesar Young CORRECTED WBC Normal 4.0-11.0 [facility] Comment on above: Performed By: #### U JORI, PHOS, CMP, LDH #### [facility] [address] [place] [address] Dr. Juliocesar Young EOS # 0.12 103/ul Normal 0.00-0.70 [facility] Comment on above: Performed By: #### U JORI, PHOS, CMP, LDH #### [facility] [address] [address] [address] Juliocesar Young EOS% 1.0 % Normal 0.9-7.0 [facility] Comment on above: Performed By: #### U JORI, PHOS, CMP, LDH #### [facility] [address] [address] [address] Juliocesar Young HCT 44.2 % Normal 36.0-48.0 [facility] Comment on above: Performed By: #### U JORI, PHOS, CMP, LDH #### [facility] [address] [address] [address] Juliocesar Young HGB 14.8 g/dl Normal 12.0-16.0 [facility] Comment on above: Performed By: #### U JORI, PHOS, CMP, LDH #### [facility] [address] [address] [address] Juliocesar Young LYMPHM # 5.17 103/ul Critically high 1.20-3.80 [facility] Comment on above: Performed By: #### U JORI, PHOS, CMP, LDH #### [facility] [address] [address] [address] Juliocesar Young LYMPHM% 45.0 % Normal 20.5-60.0 [facility] Comment on above: Performed By: #### U JORI, PHOS, CMP, LDH #### [facility] [address] [address] [address] Juliocesar Young MCH 30.5 pg Normal 26.7-34.0 [facility] Comment on above: Performed By: #### U JORI, PHOS, CMP, LDH #### [facility] [address] [address] [address] Juliocesar Young MCHC 33.5 g/dl Normal 29.9-35.2 [facility] Comment on above: Performed By: #### U JORI, PHOS, CMP, LDH #### [facility] [address] [address] [address] Juliocesar Young MCV 90.9 fL Normal 81.0-99.0 [facility] Comment on above: Performed By: #### U JORI, PHOS, CMP, LDH #### [facility] [address] [address] [address] Juliocesar Young METAMYELOCYTE # Normal [facility] Comment on above: Performed By: #### U JORI, PHOS, CMP, LDH #### [facility] [address] [address] [address] Juliocesar Young METAMYELOCYTE % Normal [facility] Comment on above: Performed By: #### U JORI, PHOS, CMP, LDH #### [facility] [address] [address] [address] Juliocesar Young MONOM# 0.81 103/ul Critically high 0.30-0.80 [facility] Comment on above: Performed By: #### U JORI, PHOS, CMP, LDH #### [facility] [address] [place] [address] Dr. Juliocesar Young MONOM% 7.0 % Normal 1.7-12.0 [facility] Comment on above: Performed By: #### U JORI, PHOS, CMP, LDH #### [facility] [address] [address] [address] Juliocesar Young MPV 10.1 fL Normal 9.5-13.5 [facility] Comment on above: Performed By: #### U JORI, PHOS, CMP, LDH #### [facility] [address] [address] [address] Juliocesar Young MYELOCYTE # Normal [facility] Comment on above: Performed By: #### U JORI, PHOS, CMP, LDH #### [facility] [address] [address] [address] Juliocesar Young MYELOCYTE % Normal [facility] Comment on above: Performed By: #### U JORI, PHOS, CMP, LDH #### [facility] [address] [address] [address] Juliocesar Young NRBC Normal [facility] Comment on above: Performed By: #### U JORI, PHOS, CMP, LDH #### [facility] [address] [address] [address] Juliocesar Young PLT 214 103/ul Normal 150-450 [facility] Comment on above: Performed By: #### U JORI, PHOS, CMP, LDH #### [facility] [address] [address] [address] Juliocesar Young RBC 4.86 106/ul Normal 4.20-5.40 [facility] Comment on above: Performed By: #### U JORI, PHOS, CMP, LDH #### [facility] [address] [address] [address] Juliocesar Young RDW 13.3 % Normal 11.0-15.0 [facility] Comment on above: Performed By: #### U JORI, PHOS, CMP, LDH #### [facility] [address] [place] [address] Dr. Juliocesar Young SEG # 4.83 103/ul Normal 1.40-6.50 [facility] Comment on above: Performed By: #### U JORI, PHOS, CMP, LDH #### [facility] [address] [place] [address] Dr. Juliocesar Young SEG % 42.0 % Critically low 43.0-75.0 [facility] Comment on above: Performed By: #### U JORI, PHOS, CMP, LDH #### [facility] [address] [place] [address] Dr. Juliocesar Young WBC 11.5 103/ul Critically high 4.0-11.0 [facility] Comment on above: Performed By: #### U JORI, PHOS, CMP, LDH #### [facility] [address] [place] [address] Dr. Juliocesar Young LDHon 01-26-2022 LDH 184 U/L Normal 81-234 [facility] Comment on above: Performed By: #### U JORI, PHOS, CMP, LDH #### [facility] [address] [place] [address] Dr. Juliocesar Young PHOSPHORUSon 01-26-2022 Phosphate [Mass/Vol] 3.0 mg/dL Normal 2.6-4.7 [facility] Comment on above: Performed By: #### U JORI, PHOS, CMP, LDH #### [facility] [address] [address] [address] Juliocesar Young PROF 14(COMP METB)on 022 Albumin [Mass/Vol] 3.4 g/dL Normal 3.4-5.0 [facility] Comment on above: Performed By: #### U JORI, PHOS, CMP, LDH #### [facility] [address] [place] [address] Dr. Juliocesar Young Albumin/Globulin [Mass ratio] 0.9 {ratio} Normal [facility] Comment on above: Performed By: #### U JORI, PHOS, CMP, LDH #### [facility] [address] [place] [address] Dr. Juliocesar Young ALP [Catalytic activity/Vol] 85 U/L Normal 46-116 [facility] Comment on above: Performed By: #### U JORI, PHOS, CMP, LDH #### [facility] [address] [address] [address] Juliocesar Young ALT [Catalytic activity/Vol] 20 U/L Normal 14-59 [facility] Comment on above: Performed By: #### U JORI, PHOS, CMP, LDH #### [facility] [address] [place] [address] Dr. Juliocesar Young Anion gap [Moles/Vol] 12.6 mmol/L Normal [facility] Comment on above: Performed By: #### U JORI, PHOS, CMP, LDH #### [facility] [address] [place] [address] Dr. Juliocesar Young AST [Catalytic activity/Vol] 12 U/L Critically low 15-37 [facility] Comment on above: Performed By: #### U JORI, PHOS, CMP, LDH #### [facility] [address] [place] [address] Dr. Juliocesar Young Bilirubin [Mass/Vol] 0.5 mg/dL Normal 0.2-1.0 [facility] Comment on above: Performed By: #### U JORI, PHOS, CMP, LDH #### [facility] [address] [address] [address] Juliocesar Young Calcium [Mass/Vol] 8.5 mg/dL Normal 8.5-10.1 [facility] Comment on above: Performed By: #### U JORI, PHOS, CMP, LDH #### [facility] [address] [address] [address] Juliocesar Young Chloride [Moles/Vol] 107 mmol/L Normal 98-107 [facility] Comment on above: Performed By: #### U JORI, PHOS, CMP, LDH #### [facility] [address] [place] [address] Dr. Juliocesar Young CO2 [Moles/Vol] 24.8 mmol/L Normal 21.0-32.0 [facility] Comment on above: Performed By: #### U JORI, PHOS, CMP, LDH #### [facility] [address] [place] [address] Dr. Juliocesar Young Creatinine [Mass/Vol] 0.60 mg/dL Normal 0.55-1.02 [facility] Comment on above: Performed By: #### U JORI, PHOS, CMP, LDH #### [facility] [address] [place] [address] Dr. Juliocesar Young EGFR-AF ANGOLAN >60 Normal >=60 [facility] Comment on above: Performed By: #### U JORI, PHOS, CMP, LDH #### [facility] [address] [place] [address] Dr. Juliocesar Young EGFR-NON AF ANGOLAN >60 Normal >=60 [facility] Comment on above: Performed By: #### U JORI, PHOS, CMP, LDH #### [facility] [address] [place] [address] Dr. Juliocesar Young Globulin (S) [Mass/Vol] 3.6 g/dL Normal [facility] Comment on above: Performed By: #### U JORI, PHOS, CMP, LDH #### [facility] [address] [place] [address] Dr. Juliocesar Young Glucose [Mass/Vol] 96 mg/dL Normal 74-106 [facility] Comment on above: Performed By: #### U JORI, PHOS, CMP, LDH #### [facility] [address] [address] [address] Juliocesar Young Potassium [Moles/Vol] 4.4 mmol/L Normal 3.5-5.1 [facility] Comment on above: Performed By: #### U JORI, PHOS, CMP, LDH #### [facility] [address] [address] [address] Juliocesar Young Protein [Mass/Vol] 7.0 g/dL Normal 6.4-8.2 [facility] Comment on above: Performed By: #### U JORI, PHOS, CMP, LDH #### [facility] [address] [place] [address] Dr. Juliocesar Young Sodium [Moles/Vol] 140 mmol/L Normal 136-145 [facility] Comment on above: Performed By: #### U JORI, PHOS, CMP, LDH #### [facility] [address] [address] [address] Juliocesar Young Urea nitrogen [Mass/Vol] 9.0 mg/dL Normal 7.0-18.0 [facility] Comment on above: Performed By: #### U JORI, PHOS, CMP, LDH #### [facility] [address] [place] [address] Dr. Juliocesar Young Urea nitrogen/Creatinine [Mass ratio] 15.0 mg/mg Normal [facility] Comment on above: Performed By: #### U JORI, PHOS, CMP, LDH #### [facility] [address] [place] [address] Dr. Juliocesar Young URIC ACID SERUMon 01-26-2022 Urate [Mass/Vol] 2.2 mg/dL Critically low 2.6-6.0 [facility] Comment on above: Performed By: #### U JORI, PHOS, CMP, LDH #### [facility] [address] [address] [address] Juliocesar Young CBC W MANUAL DIFFon 06-07-20 22 ANISOCYTOSIS 1+ Normal [facility] Comment on above: Performed By: #### U JORI, PHOS, CMP, LDH #### [facility] [address] [address] [address] Juliocesar Young ATYPICAL LYMPH # 2.48 103/ul Normal [facility] Comment on above: Performed By: #### U JORI, PHOS, CMP, LDH #### [facility] [address] [address] [address] Juliocesar Young ATYPICAL LYMPH % 14 % Normal [facility] Comment on above: Performed By: #### U JORI, PHOS, CMP, LDH #### [facility] [address] [address] [address] Juliocesar Young BAND # Normal 0.0-0.3 [facility] Comment on above: Performed By: #### U JORI, PHOS, CMP, LDH #### [facility] [address] [address] [address] Juliocesar Young BAND % Normal 0-5 [facility] Comment on above: Performed By: #### U JORI, PHOS, CMP, LDH #### [facility] [address] [address] [address] Juliocesar Young BASOM # 0.00 103/ul Normal 0.00-0.10 [facility] Comment on above: Performed By: #### U JORI, PHOS, CMP, LDH #### [facility] [address] [address] [address] Juliocesar Young BASOM % 0.0 % Critically low 0.2-2.0 [facility] Comment on above: Performed By: #### U JORI, PHOS, CMP, LDH #### [facility] [address] [address] [address] Juliocesar Young BLAST # Normal [facility] Comment on above: Performed By: #### U JORI, PHOS, CMP, LDH #### [facility] [address] [address] [address] Juliocesar Young BLAST % Normal [facility] Comment on above: Performed By: #### U JORI, PHOS, CMP, LDH #### [facility] [address] [address] [address] Juliocesar Young CORRECTED WBC Normal 4.0-11.0 [facility] Comment on above: Performed By: #### U JORI, PHOS, CMP, LDH #### [facility] [address] [address] [address] Juliocesar Young EOS # 0.00 103/ul Normal 0.00-0.70 [facility] Comment on above: Performed By: #### U JORI, PHOS, CMP, LDH #### [facility] [address] [address] [address] Juliocesar Young EOS% 0.0 % Critically low 0.9-7.0 [facility] Comment on above: Performed By: #### U JORI, PHOS, CMP, LDH #### [facility] [address] [address] [address] Juliocesar Young HCT 41.9 % Normal 36.0-48.0 [facility] Comment on above: Performed By: #### U JORI, PHOS, CMP, LDH #### [facility] [address] [address] [address] Juliocesar Young HGB 13.7 g/dl Normal 12.0-16.0 [facility] Comment on above: Performed By: #### U JORI, PHOS, CMP, LDH #### [facility] [address] [address] [address] Juliocesar Young LYMPHM # 8.67 103/ul Critically high 1.20-3.80 [facility] Comment on above: Performed By: #### U JORI, PHOS, CMP, LDH #### [facility] [address] [address] [address] Juliocesar Young LYMPHM% 49.0 % Normal 20.5-60.0 [facility] Comment on above: Performed By: #### U JORI, PHOS, CMP, LDH #### [facility] [address] [address] [address] Juliocesar Young MCH 30.0 pg Normal 26.7-34.0 [facility] Comment on above: Performed By: #### U JORI, PHOS, CMP, LDH #### [facility] [address] [address] [address] Juliocesar Young MCHC 32.7 g/dl Normal 29.9-35.2 [facility] Comment on above: Performed By: #### U JORI, PHOS, CMP, LDH #### [facility] [address] [address] [address] Juliocesar Young MCV 91.9 fL Normal 81.0-99.0 [facility] Comment on above: Performed By: #### U JORI, PHOS, CMP, LDH #### [facility] [address] [address] [address] Juliocesar Young METAMYELOCYTE # Normal [facility] Comment on above: Performed By: #### U JORI, PHOS, CMP, LDH #### [facility] [address] [address] [address] Juliocesar Young METAMYELOCYTE % Normal [facility] Comment on above: Performed By: #### U JORI, PHOS, CMP, LDH #### [facility] [address] [address] [address] Juliocesar Young MONOM# 0.71 103/ul Normal 0.30-0.80 [facility] Comment on above: Performed By: #### U JORI, PHOS, CMP, LDH #### [facility] [address] [address] [address] Juliocesar Young MONOM% 4.0 % Normal 1.7-12.0 [facility] Comment on above: Performed By: #### U JORI, PHOS, CMP, LDH #### [facility] [address] [address] [address] Juliocesar Young MPV 10.4 fL Normal 9.5-13.5 [facility] Comment on above: Performed By: #### U JORI, PHOS, CMP, LDH #### [facility] [address] [address] [address] Juliocesar Young MYELOCYTE # Normal [facility] Comment on above: Performed By: #### U JORI, PHOS, CMP, LDH #### [facility] [address] [address] [address] Juliocesar Young MYELOCYTE % Normal [facility] Comment on above: Performed By: #### U JORI, PHOS, CMP, LDH #### [facility] [address] [address] [address] Juliocesar Young NRBC Normal [facility] Comment on above: Performed By: #### U JORI, PHOS, CMP, LDH #### [facility] [address] [address] [address] Juliocesar Young PLT 180 103/ul Normal 150-450 [facility] Comment on above: Performed By: #### U JORI, PHOS, CMP, LDH #### [facility] [address] [address] [address] Juliocesar Young RBC 4.56 106/ul Normal 4.20-5.40 [facility] Comment on above: Performed By: #### U JORI, PHOS, CMP, LDH #### [facility] [address] [address] [address] Juliocesar Young RDW 14.1 % Normal 11.0-15.0 [facility] Comment on above: Performed By: #### U JORI, PHOS, CMP, LDH #### [facility] [address] [address] [address] Juliocesar Young SEG # 5.84 103/ul Normal 1.40-6.50 [facility] Comment on above: Performed By: #### U JORI, PHOS, CMP, LDH #### [facility] [address] [address] [address] Juliocesar Young SEG % 33.0 % Critically low 43.0-75.0 [facility] Comment on above: Performed By: #### U JORI, PHOS, CMP, LDH #### [facility] [address] [address] [address] Juliocesar Young WBC 17.7 103/ul Critically high 4.0-11.0 [facility] Comment on above: Performed By: #### U JORI, PHOS, CMP, LDH #### [facility] [address] [address] [address] Juliocesar Young LDHon 01-10-2022 LDH 163 U/L Normal 81-234 [facility] Comment on above: Performed By: #### U JORI, PHOS, CMP, LDH #### [facility] [address] [place] [address] Dr. Juliocesar Young PHOSPHORUSon 01-10-2022 Phosphate [Mass/Vol] 2.4 mg/dL Critically low 2.6-4.7 [facility] Comment on above: Performed By: #### U JORI, PHOS, CMP, LDH #### [facility] [address] [place] [address] Dr. Juliocesar Young PROF 14(COMP METB)on 022 Albumin [Mass/Vol] 3.2 g/dL Critically low 3.4-5.0 [facility] Comment on above: Performed By: #### U JORI, PHOS, CMP, LDH #### [facility] [address] [place] [address] Dr. Juliocesar Young Albumin/Globulin [Mass ratio] 0.9 {ratio} Normal [facility] Comment on above: Performed By: #### U JORI, PHOS, CMP, LDH #### [facility] [address] [place] [address] Dr. Juliocesar Young ALP [Catalytic activity/Vol] 90 U/L Normal 46-116 [facility] Comment on above: Performed By: #### U JORI, PHOS, CMP, LDH #### [facility] [address] [place] [address] Dr. Juliocesar Yuong ALT [Catalytic activity/Vol] 21 U/L Normal 14-59 [facility] Comment on above: Performed By: #### U JORI, PHOS, CMP, LDH #### [facility] [address] [place] [address] Dr. Juliocesar Young Anion gap [Moles/Vol] 10.4 mmol/L Normal [facility] Comment on above: Performed By: #### U JORI, PHOS, CMP, LDH #### [facility] [address] [address] [address] Juliocesar Young AST [Catalytic activity/Vol] 11 U/L Critically low 15-37 [facility] Comment on above: Performed By: #### U JORI, PHOS, CMP, LDH #### [facility] [address] [address] [address] Juliocesar Young Bilirubin [Mass/Vol] 0.3 mg/dL Normal 0.2-1.0 [facility] Comment on above: Performed By: #### U JORI, PHOS, CMP, LDH #### [facility] [address] [address] [address] Juliocesar Young Calcium [Mass/Vol] 8.4 mg/dL Critically low 8.5-10.1 [facility] Comment on above: Performed By: #### U JORI, PHOS, CMP, LDH #### [facility] [address] [address] [address] Juliocesar Young Chloride [Moles/Vol] 109 mmol/L Critically high 98-107 [facility] Comment on above: Performed By: #### U JORI, PHOS, CMP, LDH #### [facility] [address] [address] [address] Juliocesar Young CO2 [Moles/Vol] 27.4 mmol/L Normal 21.0-32.0 [facility] Comment on above: Performed By: #### U JORI, PHOS, CMP, LDH #### [facility] [address] [address] [address] Juliocesar Young Creatinine [Mass/Vol] 0.53 mg/dL Critically low 0.55-1.02 [facility] Comment on above: Performed By: #### U JORI, PHOS, CMP, LDH #### [facility] [address] [place] [address] Dr. Juliocesar Young EGFR-AF ANGOLAN >60 Normal >=60 [facility] Comment on above: Performed By: #### U JORI, PHOS, CMP, LDH #### [facility] [address] [address] [address] Juliocesar Young EGFR-NON AF ANGOLAN >60 Normal >=60 [facility] Comment on above: Performed By: #### U JORI, PHOS, CMP, LDH #### [facility] [address] [address] [address] Juliocesar Young Globulin (S) [Mass/Vol] 3.6 g/dL Normal [facility] Comment on above: Performed By: #### U JORI, PHOS, CMP, LDH #### [facility] [address] [address] [address] Juliocesar Young Glucose [Mass/Vol] 108 mg/dL Critically high 74-106 [facility] Comment on above: Performed By: #### U JORI, PHOS, CMP, LDH #### [facility] [address] [address] [address] Juliocesar Young Potassium [Moles/Vol] 3.8 mmol/L Normal 3.5-5.1 [facility] Comment on above: Performed By: #### U JORI, PHOS, CMP, LDH #### [facility] [address] [address] [address] Juliocesar Young Protein [Mass/Vol] 6.8 g/dL Normal 6.4-8.2 [facility] Comment on above: Performed By: #### U JORI, PHOS, CMP, LDH #### [facility] [address] [address] [address] Juliocesar Young Sodium [Moles/Vol] 143 mmol/L Normal 136-145 [facility] Comment on above: Performed By: #### U JORI, PHOS, CMP, LDH #### [facility] [address] [address] [address] Juliocesar Young Urea nitrogen [Mass/Vol] 9.0 mg/dL Normal 7.0-18.0 [facility] Comment on above: Performed By: #### U JORI, PHOS, CMP, LDH #### [facility] [address] [address] [address] Juliocesar Young Urea nitrogen/Creatinine [Mass ratio] 17.0 mg/mg Normal [facility] Comment on above: Performed By: #### U JORI, PHOS, CMP, LDH #### [facility] [address] [place] [address] Dr. Juliocesar Young URIC ACID SERUMon 01-10-2022 Urate [Mass/Vol] 2.0 mg/dL Critically low 2.6-6.0 [facility] Comment on above: Performed By: #### U JORI, PHOS, CMP, LDH #### [facility] [address] [place] [address] Dr. Juliocesar Young CBC AUTO DIFFon 12-29-2021 BASO # 0.1 103/ul Normal 0.0-0.1 [facility] Comment on above: Performed By: #### U JORI, PHOS, CMP, LDH #### [facility] [address] [place] [address] Dr. Juliocesar Young Basophils/100 WBC (Bld) 0.4 % Normal 0.2-2.0 [facility] Comment on above: Performed By: #### U JROI, PHOS, CMP, LDH #### [facility] [address] [place] [address] Dr. Juliocesar Young EO # 0.1 103/ul Normal 0.0-0.7 [facility] Comment on above: Performed By: #### U JORI, PHOS, CMP, LDH #### [facility] [address] [place] [address] Dr. Juliocesar Young Eosinophils/100 WBC (Bld) 0.2 % Critically low 0.9-7.0 [facility] Comment on above: Performed By: #### U JORI, PHOS, CMP, LDH #### [facility] [address] [place] [address] Dr. Juliocesar Young Erythrocyte distribution width (RBC) [Ratio] 14.2 % Normal 11.0-15.0 [facility] Comment on above: Performed By: #### U JORI, PHOS, CMP, LDH #### [facility] [address] [place] [address] Dr. Juliocesar Young Hematocrit (Bld) [Volume fraction] 43.8 % Normal 36.0-48.0 [facility] Comment on above: Performed By: #### U JORI, PHOS, CMP, LDH #### [facility] [address] [address] [address] Juliocesar Young Hemoglobin (Bld) [Mass/Vol] 14.5 g/dL Normal 12.0-16.0 [facility] Comment on above: Performed By: #### U JORI, PHOS, CMP, LDH #### [facility] [address] [place] [address] Dr. Juliocesar Young IG # 0.06 10e3/ul Critically high 0.00-0.03 [facility] Comment on above: Performed By: #### U JORI, PHOS, CMP, LDH #### [facility] [address] [place] [address] Dr. Juliocesar Young IG % 0.2 % Normal 0.0-0.5 [facility] Comment on above: Performed By: #### U JORI, PHOS, CMP, LDH #### [facility] [address] [place] [address] Dr. Juliocesar Young LYMPH # 17.6 103/ul Critically high 1.2-3.8 [facility] Comment on above: Performed By: #### U JORI, PHOS, CMP, LDH #### [facility] [address] [place] [address] Dr. Juliocesar Young Lymphocytes/100 WBC (Bld) 72.9 % Critically high 20.5-60.0 [facility] Comment on above: Performed By: #### U JORI, PHOS, CMP, LDH #### [facility] [address] [place] [address] Dr. Juliocesar Young MANUAL DIFF REQ NO Normal [facility] Comment on above: Performed By: #### U JORI, PHOS, CMP, LDH #### [facility] [address] [place] [address] Dr. Juliocesar Young MCH (RBC) [Entitic mass] 30.5 pg Normal 26.7-34.0 [facility] Comment on above: Performed By: #### U JORI, PHOS, CMP, LDH #### [facility] [address] [place] [address] Dr. Juliocesar Young MCHC (RBC) [Mass/Vol] 33.1 g/dL Normal 29.9-35.2 [facility] Comment on above: Performed By: #### U JORI, PHOS, CMP, LDH #### [facility] [address] [place] [address] Dr. Juliocesar Young MCV (RBC) [Entitic vol] 92.0 fL Normal 81.0-99.0 [facility] Comment on above: Performed By: #### U JORI, PHOS, CMP, LDH #### [facility] [address] [place] [address] Dr. Juliocesar Young MONO # 0.7 103/ul Normal 0.3-0.8 [facility] Comment on above: Performed By: #### U JORI, PHOS, CMP, LDH #### [facility] [address] [place] [address] Dr. Juliocesar Young Monocytes/100 WBC (Bld) 2.9 % Normal 1.7-12.0 [facility] Comment on above: Performed By: #### U JORI, PHOS, CMP, LDH #### [facility] [address] [place] [address] Dr. Juliocesar Young NEUT # 5.7 103/ul Normal 1.4-6.5 [facility] Comment on above: Performed By: #### U JORI, PHOS, CMP, LDH #### [facility] [address] [place] [address] Dr. Juliocesar Young Neutrophils/100 WBC (Bld) 23.4 % Critically low 43.0-75.0 [facility] Comment on above: Performed By: #### U JORI, PHOS, CMP, LDH #### [facility] [address] [place] [address] Dr. Juliocesar Young Platelet mean volume (Bld) [Entitic vol] 10.5 fL Normal 9.5-13.5 [facility] Comment on above: Performed By: #### U JORI, PHOS, CMP, LDH #### [facility] [address] [place] [address] Dr. Juliocesar Young PLT 236 103/ul Normal 150-450 [facility] Comment on above: Performed By: #### U JORI, PHOS, CMP, LDH #### [facility] [address] [address] [address] Juliocesar Young RBC 4.76 106/ul Normal 4.20-5.40 [facility] Comment on above: Performed By: #### U JORI, PHOS, CMP, LDH #### [facility] [address] [address] [address] Juliocesar Young WBC 24.2 103/ul Critically high 4.0-11.0 [facility] Comment on above: Performed By: #### U JORI, PHOS, CMP, LDH #### [facility] [address] [place] [address] Dr. Juliocesar Young LDHon 12-29-2021 LDH 171 U/L Normal 81-234 [facility] Comment on above: Performed By: #### U JORI, PHOS, CMP, LDH #### [facility] [address] [place] [address] Dr. Juliocesar Young PHOSPHORUSon 12-29-2021 Phosphate [Mass/Vol] 3.4 mg/dL Normal 2.6-4.7 [facility] Comment on above: Performed By: #### L DH, CMP, PHOS, URIC #### [facility] [address] [place] [address] Dr. Juliocesar Young PROF 14(COMP METB)on 022 Albumin [Mass/Vol] 3.6 g/dL Normal 3.4-5.0 [facility] Comment on above: Performed By: #### L DH, CMP, PHOS, URIC #### [facility] [address] [place] [address] Dr. Juliocesar Young Albumin/Globulin [Mass ratio] 0.9 {ratio} Normal [facility] Comment on above: Performed By: #### L DH, CMP, PHOS, URIC #### [facility] [address] [place] [address] Dr. Juliocesar Young ALP [Catalytic activity/Vol] 91 U/L Normal 46-116 [facility] Comment on above: Performed By: #### L DH, CMP, PHOS, URIC #### [facility] [address] [place] [address] Dr. Juliocesar Young ALT [Catalytic activity/Vol] 25 U/L Normal 14-59 [facility] Comment on above: Performed By: #### L DH, CMP, PHOS, URIC #### [facility] [address] [place] [address] Dr. Juliocesar Young Anion gap [Moles/Vol] 13.4 mmol/L Normal [facility] Comment on above: Performed By: #### L DH, CMP, PHOS, URIC #### [facility] [address] [place] [address] Dr. Juliocesar Young AST [Catalytic activity/Vol] 12 U/L Critically low 15-37 [facility] Comment on above: Performed By: #### L DH, CMP, PHOS, URIC #### [facility] [address] [place] [address] Dr. Juliocesar Young Bilirubin [Mass/Vol] 0.5 mg/dL Normal 0.2-1.0 [facility] Comment on above: Performed By: #### L DH, CMP, PHOS, URIC #### [facility] [address] [place] [address] Dr. Juliocesar Young Calcium [Mass/Vol] 9.2 mg/dL Normal 8.5-10.1 [facility] Comment on above: Performed By: #### L DH, CMP, PHOS, URIC #### [facility] [address] [place] [address] Dr. Juliocesar Young Chloride [Moles/Vol] 104 mmol/L Normal 98-107 [facility] Comment on above: Performed By: #### L DH, CMP, PHOS, URIC #### [facility] [address] [place] [address] Dr. Juliocesar Young CO2 [Moles/Vol] 24.6 mmol/L Normal 21.0-32.0 [facility] Comment on above: Performed By: #### L DH, CMP, PHOS, URIC #### [facility] [address] [address] [address] Juliocesar Young Creatinine [Mass/Vol] 0.60 mg/dL Normal 0.55-1.02 [facility] Comment on above: Performed By: #### L DH, CMP, PHOS, URIC #### [facility] [address] [address] [address] Juliocesar Young EGFR-AF ANGOLAN >60 Normal >=60 [facility] Comment on above: Performed By: #### L DH, CMP, PHOS, URIC #### [facility] [address] [address] [address] Juliocesar Young EGFR-NON AF ANGOLAN >60 Normal >=60 [facility] Comment on above: Performed By: #### L DH, CMP, PHOS, URIC #### [facility] [address] [place] [address] Dr. Juliocesar Young Globulin (S) [Mass/Vol] 3.9 g/dL Normal [facility] Comment on above: Performed By: #### L DH, CMP, PHOS, URIC #### [facility] [address] [address] [address] Juliocesar Young Glucose [Mass/Vol] 100 mg/dL Normal 74-106 [facility] Comment on above: Performed By: #### L DH, CMP, PHOS, URIC #### [facility] [address] [address] [address] Juliocesar Young Potassium [Moles/Vol] 4.0 mmol/L Normal 3.5-5.1 [facility] Comment on above: Performed By: #### L DH, CMP, PHOS, URIC #### [facility] [address] [address] [address] Juliocesar Young Protein [Mass/Vol] 7.5 g/dL Normal 6.4-8.2 [facility] Comment on above: Performed By: #### L DH, CMP, PHOS, URIC #### [facility] [address] [address] [address] Juliocesar Young Sodium [Moles/Vol] 138 mmol/L Normal 136-145 [facility] Comment on above: Performed By: #### L DH, CMP, PHOS, URIC #### [facility] [address] [place] [address] Dr. Juliocesar Young Urea nitrogen [Mass/Vol] 6.0 mg/dL Critically low 7.0-18.0 [facility] Comment on above: Performed By: #### L DH, CMP, PHOS, URIC #### [facility] [address] [place] [address] Dr. Juliocesar Young Urea nitrogen/Creatinine [Mass ratio] 10.0 mg/mg Normal [facility] Comment on above: Performed By: #### L DH, CMP, PHOS, URIC #### [facility] [address] [place] [address] Dr. Juliocesar Young URIC ACID SERUMon 12-29-2021 Urate [Mass/Vol] 2.6 mg/dL Normal 2.6-6.0 [facility] Comment on above: Performed By: #### L DH, CMP, PHOS, URIC #### [facility] [address] [place] [address] Dr. Juliocesar Young CBC AUTO DIFFon 12-20-2021 BASO # 0.0 103/ul Normal 0.0-0.1 [facility] Comment on above: Performed By: #### O VAPE #### [facility] [address] [place] [address] Dr. Juliocesar Young Basophils/100 WBC (Bld) 0.1 % Critically low 0.2-2.0 [facility] Comment on above: Performed By: #### O VAPE #### [facility] [address] [place] [address] Dr. Juliocesar Young EO # 0.2 103/ul Normal 0.0-0.7 [facility] Comment on above: Performed By: #### O VAPE #### [facility] [address] [place] [address] Dr. Juliocesar Young Eosinophils/100 WBC (Bld) 0.6 % Critically low 0.9-7.0 [facility] Comment on above: Performed By: #### O VAPE #### [facility] [address] [address] [address] Juliocesar Young Erythrocyte distribution width (RBC) [Ratio] 14.6 % Normal 11.0-15.0 [facility] Comment on above: Performed By: #### O VAPE #### [facility] [address] [place] [address] Dr. Juliocesar Young Hematocrit (Bld) [Volume fraction] 44.1 % Normal 36.0-48.0 [facility] Comment on above: Performed By: #### O VAPE #### [facility] [address] [place] [address] Dr. Juliocesar Young Hemoglobin (Bld) [Mass/Vol] 14.7 g/dL Normal 12.0-16.0 [facility] Comment on above: Performed By: #### O VAPE #### [facility] [address] [place] [address] Dr. Juliocesar Young IG # 0.07 10e3/ul Critically high 0.00-0.03 [facility] Comment on above: Performed By: #### O VAPE #### [facility] [address] [place] [address] Dr. Juliocesar Young IG % 0.2 % Normal 0.0-0.5 [facility] Comment on above: Performed By: #### O VAPE #### [facility] [address] [place] [address] Dr. Julicoesar Young LYMPH # 27.2 103/ul Critically high 1.2-3.8 [facility] Comment on above: Performed By: #### O VAPE #### [facility] [address] [place] [address] Dr. Juliocesar Young Lymphocytes/100 WBC (Bld) 78.1 % Critically high 20.5-60.0 [facility] Comment on above: Performed By: #### O VAPE #### [facility] [address] [place] [address] Dr. Juliocesar Young MANUAL DIFF REQ YES Normal [facility] Comment on above: Performed By: #### O VAPE #### [facility] [address] [address] [address] Juliocesar Young MCH (RBC) [Entitic mass] 30.3 pg Normal 26.7-34.0 [facility] Comment on above: Performed By: #### O VAPE #### [facility] [address] [place] [address] Dr. Juliocesar Young MCHC (RBC) [Mass/Vol] 33.3 g/dL Normal 29.9-35.2 [facility] Comment on above: Performed By: #### O VAPE #### [facility] [address] [place] [address] Dr. Juliocesar Young MCV (RBC) [Entitic vol] 90.9 fL Normal 81.0-99.0 [facility] Comment on above: Performed By: #### O VAPE #### [facility] [address] [place] [address] Dr. Juliocesar Young MONO # 0.9 103/ul Critically high 0.3-0.8 [facility] Comment on above: Performed By: #### O VAPE #### [facility] [address] [place] [address] Dr. Juliocesar Young Monocytes/100 WBC (Bld) 2.5 % Normal 1.7-12.0 [facility] Comment on above: Performed By: #### O VAPE #### [facility] [address] [place] [address] Dr. Juliocesar Young NEUT # 6.4 103/ul Normal 1.4-6.5 [facility] Comment on above: Performed By: #### O VAPE #### [facility] [address] [place] [address] Dr. Juliocesar Yougn Neutrophils/100 WBC (Bld) 18.5 % Critically low 43.0-75.0 [facility] Comment on above: Performed By: #### O VAPE #### [facility] [address] [place] [address] Dr. Juliocesar Young Platelet mean volume (Bld) [Entitic vol] 9.9 fL Normal 9.5-13.5 [facility] Comment on above: Performed By: #### O VAPE #### [facility] [address] [address] [address] Juliocesar Young PLT 220 103/ul Normal 150-450 [facility] Comment on above: Performed By: #### O VAPE #### [facility] [address] [address] [address] Juliocesar Young RBC 4.85 106/ul Normal 4.20-5.40 [facility] Comment on above: Performed By: #### O VAPE #### [facility] [address] [address] [address] Juliocesar Young WBC 34.8 103/ul Critically high 4.0-11.0 [facility] Comment on above: Result Comment: test repeated critical value verified Performed By: #### O VAPE #### [facility] [address] [place] [address] Dr. Juliocesar Young DIFFERENTIAL MANUALon 2021 ATYPICAL LYMPH # Normal [facility] Comment on above: Performed By: #### U JORI, PHOS, CMP, LDH #### [facility] [address] [address] [address] Juliocesar Young ATYPICAL LYMPH % Normal [facility] Comment on above: Performed By: #### U JORI, PHOS, CMP, LDH #### [facility] [address] [place] [address] Dr. Juliocesar Young BAND # 0.0 103/ul Normal 0.0-0.3 [facility] Comment on above: Performed By: #### U JORI, PHOS, CMP, LDH #### [facility] [address] [place] [address] Dr. Juliocesar Young BAND % 0 % Normal 0-5 [facility] Comment on above: Performed By: #### U JORI, PHOS, CMP, LDH #### [facility] [address] [place] [address] Dr. Juliocesar Young BASOM # 0.00 103/ul Normal 0.00-0.10 [facility] Comment on above: Performed By: #### U JORI, PHOS, CMP, LDH #### [facility] [address] [address] [address] Juliocesar Young BASOM % 0.0 % Critically low 0.2-2.0 [facility] Comment on above: Performed By: #### U JORI, PHOS, CMP, LDH #### [facility] [address] [address] [address] Juliocesar Young BLAST # Normal [facility] Comment on above: Performed By: #### U JORI, PHOS, CMP, LDH #### [facility] [address] [address] [address] Juliocesar Young BLAST % Normal [facility] Comment on above: Performed By: #### U JORI, PHOS, CMP, LDH #### [facility] [address] [address] [address] Juliocesar Young CORRECTED WBC Normal 4.0-11.0 [facility] Comment on above: Performed By: #### U JORI, PHOS, CMP, LDH #### [facility] [address] [address] [address] Juliocesar Young EOS # 0.35 103/ul Normal 0.00-0.70 [facility] Comment on above: Performed By: #### U JORI, PHOS, CMP, LDH #### [facility] [address] [address] [address] Juliocesar Young EOS% 1.0 % Normal 0.9-7.0 [facility] Comment on above: Performed By: #### U JORI, PHOS, CMP, LDH #### [facility] [address] [address] [address] Juliocesar Young LYMPHM # 28.80 103/ul Critically high 1.20-3.80 [facility] Comment on above: Performed By: #### U JORI, PHOS, CMP, LDH #### [facility] [address] [address] [address] Juliocesar Young LYMPHM% 83.0 % Critically high 20.5-60.0 [facility] Comment on above: Performed By: #### U JORI, PHOS, CMP, LDH #### [facility] [address] [address] [address] Juliocesar Young METAMYELOCYTE # Normal [facility] Comment on above: Performed By: #### U JORI, PHOS, CMP, LDH #### [facility] [address] [address] [address] Juliocesar Young METAMYELOCYTE % Normal [facility] Comment on above: Performed By: #### U JORI, PHOS, CMP, LDH #### [facility] [address] [address] [address] Juliocesar Young MONOM# 0.69 103/ul Normal 0.30-0.80 [facility] Comment on above: Performed By: #### U JORI, PHOS, CMP, LDH #### [facility] [address] [place] [address] Dr. Juliocesar Young MONOM% 2.0 % Normal 1.7-12.0 [facility] Comment on above: Performed By: #### U JORI, PHOS, CMP, LDH #### [facility] [address] [address] [address] Juliocesar Young MYELOCYTE # Normal [facility] Comment on above: Performed By: #### U JORI, PHOS, CMP, LDH #### [facility] [address] [place] [address] Dr. Juliocesar Yuong MYELOCYTE % Normal [facility] Comment on above: Performed By: #### U JORI, PHOS, CMP, LDH #### [facility] [address] [place] [address] Dr. Juliocesar Young NRBC Normal [facility] Comment on above: Performed By: #### U JORI, PHOS, CMP, LDH #### [facility] [address] [place] [address] Dr. Juliocesar Young SEG # 4.86 103/ul Normal 1.40-6.50 [facility] Comment on above: Performed By: #### U JORI, PHOS, CMP, LDH #### [facility] [address] [place] [address] Dr. Juliocesar Young SEG % 14.0 % Critically low 43.0-75.0 [facility] Comment on above: Performed By: #### U JORI, PHOS, CMP, LDH #### [facility] [address] [place] [address] Dr. Juliocesar Young WBC 34.7 103/ul Critically high 4.0-11.0 [facility] Comment on above: Performed By: #### U JORI, PHOS, CMP, LDH #### [facility] [address] [place] [address] Dr. Juliocesar Young PROF 14(COMP METB)on 022 Albumin [Mass/Vol] 3.5 g/dL Normal 3.4-5.0 [facility] Comment on above: Performed By: #### C MP #### [facility] [address] [place] [address] Dr. Juliocesar Young Albumin/Globulin [Mass ratio] 0.9 {ratio} Normal [facility] Comment on above: Performed By: #### C MP #### [facility] [address] [place] [address] Dr. Juliocesar Young ALP [Catalytic activity/Vol] 95 U/L Normal 46-116 [facility] Comment on above: Performed By: #### C MP #### [facility] [address] [place] [address] Dr. Juliocesar Young ALT [Catalytic activity/Vol] 27 U/L Normal 14-59 [facility] Comment on above: Performed By: #### C MP #### [facility] [address] [place] [address] Dr. Juliocesar Young Anion gap [Moles/Vol] 13.1 mmol/L Normal [facility] Comment on above: Performed By: #### C MP #### [facility] [address] [place] [address] Dr. Juliocesar Young AST [Catalytic activity/Vol] 13 U/L Critically low 15-37 [facility] Comment on above: Performed By: #### C MP #### [facility] [address] [place] [address] Dr. Juliocesar Young Bilirubin [Mass/Vol] 0.4 mg/dL Normal 0.2-1.0 [facility] Comment on above: Performed By: #### C MP #### [facility] [address] [address] [address] Juliocesar Young Calcium [Mass/Vol] 8.6 mg/dL Normal 8.5-10.1 [facility] Comment on above: Performed By: #### C MP #### [facility] [address] [address] [address] Juliocesar Young Chloride [Moles/Vol] 104 mmol/L Normal 98-107 [facility] Comment on above: Performed By: #### C MP #### [facility] [address] [address] [address] Juliocesar Young CO2 [Moles/Vol] 24.7 mmol/L Normal 21.0-32.0 [facility] Comment on above: Performed By: #### C MP #### [facility] [address] [place] [address] Dr. Juliocesar Young Creatinine [Mass/Vol] 0.60 mg/dL Normal 0.55-1.02 [facility] Comment on above: Performed By: #### C MP #### [facility] [address] [place] [address] Dr. Juliocesar Young EGFR-AF ANGOLAN >60 Normal >=60 [facility] Comment on above: Performed By: #### C MP #### [facility] [address] [address] [address] Juliocesar Young EGFR-NON AF ANGOLAN >60 Normal >=60 [facility] Comment on above: Performed By: #### C MP #### [facility] [address] [address] [address] Juliocesar Young Globulin (S) [Mass/Vol] 3.9 g/dL Normal [facility] Comment on above: Performed By: #### C MP #### [facility] [address] [address] [address] Juliocesar Young Glucose [Mass/Vol] 91 mg/dL Normal 74-106 [facility] Comment on above: Performed By: #### C MP #### [facility] [address] [address] [address] Juliocesar Young Potassium [Moles/Vol] 3.8 mmol/L Normal 3.5-5.1 [facility] Comment on above: Performed By: #### C MP #### [facility] [address] [address] [address] Juliocesar Young Protein [Mass/Vol] 7.4 g/dL Normal 6.4-8.2 [facility] Comment on above: Performed By: #### C MP #### [facility] [address] [address] [address] Juliocesar Young Sodium [Moles/Vol] 138 mmol/L Normal 136-145 [facility] Comment on above: Performed By: #### C MP #### [facility] [address] [address] [address] Juliocesar Young Urea nitrogen [Mass/Vol] 11.0 mg/dL Normal 7.0-18.0 [facility] Comment on above: Performed By: #### C MP #### [facility] [address] [address] [address] Juliocesar Young Urea nitrogen/Creatinine [Mass ratio] 18.3 mg/mg Normal [facility] Comment on above: Performed By: #### C MP #### [facility] [address] [address] [address] Juliocesar Young CBC W MANUAL DIFFon 12-13-19 22 ATYPICAL LYMPH # Normal [facility] Comment on above: Performed By: #### U JORI, PHOS, CMP, LDH #### [facility] [address] [address] [address] Juliocesar Young ATYPICAL LYMPH % Normal [facility] Comment on above: Performed By: #### U JORI, PHOS, CMP, LDH #### [facility] [address] [address] [address] Juliocesar Young BAND # Normal 0.0-0.3 [facility] Comment on above: Performed By: #### U JORI, PHOS, CMP, LDH #### [facility] [address] [address] [address] Juliocesar Young BAND % Normal 0-5 [facility] Comment on above: Performed By: #### U JORI, PHOS, CMP, LDH #### [facility] [address] [address] [address] Juliocesar Young BASOM # 0.00 103/ul Normal 0.00-0.10 [facility] Comment on above: Performed By: #### U JORI, PHOS, CMP, LDH #### [facility] [address] [address] [address] Juliocesar Young BASOM % 0.0 % Critically low 0.2-2.0 [facility] Comment on above: Performed By: #### U JORI, PHOS, CMP, LDH #### [facility] Laboratory [address] [place] [address] Dr. Juliocesar Young BLAST # Normal [facility] Comment on above: Performed By: #### U JORI, PHOS, CMP, LDH #### [facility] [address] [address] [address] Juliocesar Young BLAST % Normal [facility] Comment on above: Performed By: #### U JORI, PHOS, CMP, LDH #### [facility] [address] [address] [address] Juliocesar Young CORRECTED WBC Normal 4.0-11.0 [facility] [place] Comment on above: Performed By: #### U JORI, PHOS, CMP, LDH #### [facility] [address] [address] [address] Juliocesar Young EOS # 0.00 103/ul Normal 0.00-0.70 [facility] Comment on above: Performed By: #### U JORI, PHOS, CMP, LDH #### [facility] [address] [place] [address] Dr. Juliocesar Young EOS% 0.0 % Critically low 0.9-7.0 [facility] Comment on above: Performed By: #### U JORI, PHOS, CMP, LDH #### [facility] [address] [address] [address] Juliocesar Young HCT 44.1 % Normal 36.0-48.0 [facility] Comment on above: Performed By: #### U JORI, PHOS, CMP, LDH #### [facility] [address] [address] [address] Juliocesar Young HGB 14.1 g/dl Normal 12.0-16.0 [facility] Comment on above: Performed By: #### U JORI, PHOS, CMP, LDH #### [facility] [address] [address] [address] Juliocesar Young LYMPHM # 39.95 103/ul Critically high 1.20-3.80 [facility] Comment on above: Performed By: #### U JORI, PHOS, CMP, LDH #### [facility] [address] [address] [address] Juliocesar Young LYMPHM% 85.0 % Critically high 20.5-60.0 [facility] Comment on above: Performed By: #### U JORI, PHOS, CMP, LDH #### [facility] [address] [address] [address] Juliocesar Young MCH 30.1 pg Normal 26.7-34.0 [facility] Comment on above: Performed By: #### U JORI, PHOS, CMP, LDH #### [facility] [address] [address] [address] Juliocesar Young MCHC 32.0 g/dl Normal 29.9-35.2 [facility] Comment on above: Performed By: #### U JORI, PHOS, CMP, LDH #### [facility] [address] [address] [address] Juliocesar Young MCV 94.2 fL Normal 81.0-99.0 [facility] Comment on above: Performed By: #### U JORI, PHOS, CMP, LDH #### [facility] [address] [address] [address] Juliocesar Young METAMYELOCYTE # Normal [facility] Comment on above: Performed By: #### U JORI, PHOS, CMP, LDH #### [facility] [address] [address] [address] Juliocesar Young METAMYELOCYTE % Normal [facility] Comment on above: Performed By: #### U JORI, PHOS, CMP, LDH #### [facility] [address] [address] [address] Juliocesar Young MONOM# 0.94 103/ul Critically high 0.30-0.80 [facility] Comment on above: Performed By: #### U JORI, PHOS, CMP, LDH #### [facility] [address] [address] [address] Juliocesar Young MONOM% 2.0 % Normal 1.7-12.0 [facility] Comment on above: Performed By: #### U JORI, PHOS, CMP, LDH #### [facility] [address] [place] [address] Dr. Juliocesar Young MPV 10.6 fL Normal 9.5-13.5 [facility] Comment on above: Performed By: #### U JORI, PHOS, CMP, LDH #### [facility] [address] [address] [address] Juliocesar Young MYELOCYTE # Normal [facility] Comment on above: Performed By: #### U JORI, PHOS, CMP, LDH #### [facility] [address] [address] [address] Juliocesar Young MYELOCYTE % Normal [facility] Comment on above: Performed By: #### U JORI, PHOS, CMP, LDH #### [facility] [address] [address] [address] Juliocesar Young NRBC Normal [facility] Comment on above: Performed By: #### U JORI, PHOS, CMP, LDH #### [facility] [address] [address] [address] Juliocesar Young PLT 202 103/ul Normal 150-450 [facility] Comment on above: Performed By: #### U JORI, PHOS, CMP, LDH #### [facility] [address] [address] [address] Juliocesar Young RBC 4.68 106/ul Normal 4.20-5.40 [facility] Comment on above: Performed By: #### U JORI, PHOS, CMP, LDH #### [facility] [address] [address] [address] Juliocesar Young RDW 14.6 % Normal 11.0-15.0 [facility] Comment on above: Performed By: #### U JORI, PHOS, CMP, LDH #### [facility] [address] [address] [address] Juliocesar Young SEG # 6.11 103/ul Normal 1.40-6.50 [facility] Comment on above: Performed By: #### U JORI, PHOS, CMP, LDH #### [facility] [address] [place] [address] Dr. Juliocesar Young SEG % 13.0 % Critically low 43.0-75.0 [facility] Comment on above: Performed By: #### U JORI, PHOS, CMP, LDH #### [facility] [address] [place] [address] Dr. Juliocesar Young SMUDGE CELLS SEEN Normal [facility] Comment on above: Performed By: #### U JORI, PHOS, CMP, LDH #### [facility] [address] [address] [address] Juliocesar Young WBC 47.0 103/ul Critically high 4.0-11.0 The [facility] Comment on above: Performed By: #### U JORI, PHOS, CMP, LDH #### [facility] [address] [address] [address] Juliocesar Young LDHon 12-12-2021 LDH 165 U/L Normal 81-234 [facility] Comment on above: Performed By: #### L ACTFQ #### [facility] [address] [address] [address] Juliocesar Young PHOSPHORUSon 12-12-2021 Phosphate [Mass/Vol] 3.0 mg/dL Normal 2.6-4.7 [facility] Comment on above: Performed By: #### L ACTFQ #### [facility] [address] [address] [address] Juliocesar Young PROF 14(COMP METB)on 022 Albumin [Mass/Vol] 3.5 g/dL Normal 3.4-5.0 [facility] Comment on above: Performed By: #### L ACTFQ #### [facility] [address] [address] [address] Juliocesar Young Albumin/Globulin [Mass ratio] 1.0 {ratio} Normal [facility] Comment on above: Performed By: #### L ACTFQ #### [facility] [address] [address] [address] Juliocesar Young ALP [Catalytic activity/Vol] 84 U/L Normal 46-116 [facility] Comment on above: Performed By: #### L ACTFQ #### [facility] [address] [place] [address] Dr. Juliocesar Young ALT [Catalytic activity/Vol] 21 U/L Normal 14-59 [facility] Comment on above: Performed By: #### L ACTFQ #### [facility] [address] [address] [address] Juliocesar Young Anion gap [Moles/Vol] 9.3 mmol/L Normal [facility] Comment on above: Performed By: #### L ACTFQ #### [facility] [address] [place] [address] Dr. Juliocesar Young AST [Catalytic activity/Vol] 11 U/L Critically low 15-37 [facility] Comment on above: Performed By: #### L ACTFQ #### [facility] [address] [address] [address] Juliocesar Young Bilirubin [Mass/Vol] 0.5 mg/dL Normal 0.2-1.0 [facility] Comment on above: Performed By: #### L ACTFQ #### [facility] [address] [address] [address] Juliocesar Young Calcium [Mass/Vol] 8.2 mg/dL Critically low 8.5-10.1 [facility] Comment on above: Performed By: #### L ACTFQ #### [facility] [address] [address] [address] Juliocesar Young Chloride [Moles/Vol] 106 mmol/L Normal 98-107 [facility] Comment on above: Performed By: #### L ACTFQ #### [facility] [address] [address] [address] Juliocesar Young CO2 [Moles/Vol] 24.7 mmol/L Normal 21.0-32.0 [facility] Comment on above: Performed By: #### L ACTFQ #### [facility] [address] [address] [address] Juliocesar Young Creatinine [Mass/Vol] 0.53 mg/dL Critically low 0.55-1.02 [facility] Comment on above: Performed By: #### L ACTFQ #### [facility] [address] [place] [address] Dr. Juliocesar Young EGFR-AF ANGOLAN >60 Normal >=60 [facility] Comment on above: Performed By: #### L ACTFQ #### [facility] [address] [place] [address] Dr. Juliocesar Young EGFR-NON AF ANGOLAN >60 Normal >=60 [facility] Comment on above: Performed By: #### L ACTFQ #### [facility] [address] [place] [address] Dr. Juliocesar Young Globulin (S) [Mass/Vol] 3.6 g/dL Normal [facility] Comment on above: Performed By: #### L ACTFQ #### [facility] [address] [address] [address] Juliocesar Young Glucose [Mass/Vol] 102 mg/dL Normal 74-106 [facility] Comment on above: Performed By: #### L ACTFQ #### [facility] [address] [place] [address] Dr. Juliocesar Young Potassium [Moles/Vol] 4.0 mmol/L Normal 3.5-5.1 [facility] Comment on above: Performed By: #### L ACTFQ #### [facility] [address] [address] [address] Juliocesar Young Protein [Mass/Vol] 7.1 g/dL Normal 6.4-8.2 [facility] Comment on above: Performed By: #### L ACTFQ #### [facility] [address] [address] [address] Juliocesar Young Sodium [Moles/Vol] 136 mmol/L Normal 136-145 [facility] Comment on above: Performed By: #### L ACTFQ #### [facility] [address] [address] [address] Juliocesar Young Urea nitrogen [Mass/Vol] 9.0 mg/dL Normal 7.0-18.0 [facility] Comment on above: Performed By: #### L ACTFQ #### [facility] [address] [place] [address] Dr. Juliocesar Young Urea nitrogen/Creatinine [Mass ratio] 17.0 mg/mg Normal [facility] Comment on above: Performed By: #### L ACTFQ #### [facility] [address] [address] [address] Juliocesar Young URIC ACID SERUMon 12-12-2021 Urate [Mass/Vol] 2.3 mg/dL Critically low 2.6-6.0 [facility] Comment on above: Performed By: #### L ACTFQ #### [facility] [address] [address] [address] Juliocesar Young HEPATITIS B CORE ANTIBODYon 12-05-2021 HEP B CORE AB Non-Reactive Normal NONREACTIVE [facility] Comment on above: Performed By: #### 3 [id number] #### [facility] [address] [facility] [place] [address], [facility] CBC W MANUAL DIFFon 12-04-19 22 ATYPICAL LYMPH # Normal [facility] Comment on above: Performed By: #### U JORI, PHOS, CMP, LDH #### [facility] [address] [address] [address] Juliocesar Young ATYPICAL LYMPH % Normal [facility] Comment on above: Performed By: #### U JORI, PHOS, CMP, LDH #### [facility] [address] [address] [address] Juliocesar Young BAND # 0.0 103/ul Normal 0.0-0.3 [facility] Comment on above: Performed By: #### U JORI, PHOS, CMP, LDH #### [facility] [address] [address] [address] Juliocesar Young BAND % 0 % Normal 0-5 [facility] Comment on above: Performed By: #### U JORI, PHOS, CMP, LDH #### [facility] [address] [address] [address] Juliocesar Young BASOM # 0.00 103/ul Normal 0.00-0.10 [facility] Comment on above: Performed By: #### U JORI, PHOS, CMP, LDH #### [facility] [address] [place] [address] Dr. Juliocesar Young BASOM % 0.0 % Critically low 0.2-2.0 [facility] Comment on above: Performed By: #### U JORI, PHOS, CMP, LDH #### [facility] [address] [place] [address] Dr. Juliocesar Young BLAST # Normal [facility] Comment on above: Performed By: #### U JORI, PHOS, CMP, LDH #### [facility] [address] [address] [address] Juliocesar Young BLAST % Normal [facility] Comment on above: Performed By: #### U JORI, PHOS, CMP, LDH #### [facility] [address] [place] [address] Dr. Juliocesar Young CORRECTED WBC Normal 4.0-11.0 [facility] Comment on above: Performed By: #### U OJRI, PHOS, CMP, LDH #### [facility] [address] [place] [address] Dr. Juliocesar Young EOS # 0.00 103/ul Normal 0.00-0.70 [facility] Comment on above: Performed By: #### U JORI, PHOS, CMP, LDH #### [facility] [address] [address] [address] Juliocesar Young EOS% 0.0 % Critically low 0.9-7.0 [facility] Comment on above: Performed By: #### U JORI, PHOS, CMP, LDH #### [facility] [address] [address] [address] Juliocesar Young HCT 44.6 % Normal 36.0-48.0 [facility] Comment on above: Performed By: #### U JORI, PHOS, CMP, LDH #### [facility] [address] [address] [address] Juliocesar Young HGB 14.4 g/dl Normal 12.0-16.0 [facility] Comment on above: Performed By: #### U JORI, PHOS, CMP, LDH #### [facility] [address] [address] [address] Juliocesar Young LYMPHM # 53.68 103/ul Critically high 1.20-3.80 [facility] Comment on above: Performed By: #### U JORI, PHOS, CMP, LDH #### [facility] [address] [address] [address] Juliocesar Young LYMPHM% 88.0 % Critically high 20.5-60.0 [facility] Comment on above: Performed By: #### U JORI, PHOS, CMP, LDH #### [facility] [address] [address] [address] Juliocesar Young MCH 29.9 pg Normal 26.7-34.0 [facility] Comment on above: Performed By: #### U JORI, PHOS, CMP, LDH #### [facility] [address] [address] [address] Juliocesar Young MCHC 32.3 g/dl Normal 29.9-35.2 [facility] Comment on above: Performed By: #### U JORI, PHOS, CMP, LDH #### [facility] [address] [address] [address] Juliocesar Young MCV 92.5 fL Normal 81.0-99.0 [facility] Comment on above: Performed By: #### U JORI, PHOS, CMP, LDH #### [facility] [address] [place] [address] Dr. Juliocesar Young METAMYELOCYTE # Normal [facility] Comment on above: Performed By: #### U JORI, PHOS, CMP, LDH #### [facility] [address] [address] [address] Juliocesar Young METAMYELOCYTE % Normal [facility] Comment on above: Performed By: #### U JORI, PHOS, CMP, LDH #### [facility] [address] [address] [address] Juliocesar Young MONOM# 0.00 103/ul Critically low 0.30-0.80 [facility] Comment on above: Performed By: #### U JORI, PHOS, CMP, LDH #### [facility] [address] [place] [address] Dr. Juliocesar Young MONOM% 0.0 % Critically low 1.7-12.0 [facility] Comment on above: Performed By: #### U JORI, PHOS, CMP, LDH #### [facility] [address] [place] [address] Dr. Juliocesar Young MPV 10.4 fL Normal 9.5-13.5 [facility] Comment on above: Performed By: #### U JORI, PHOS, CMP, LDH #### [facility] [address] [place] [address] Dr. Juliocesar Young MYELOCYTE # Normal [facility] Comment on above: Performed By: #### U JORI, PHOS, CMP, LDH #### [facility] [address] [address] [address] Juliocesar Young MYELOCYTE % Normal [facility] Comment on above: Performed By: #### U JORI, PHOS, CMP, LDH #### [facility] [address] [place] [address] Dr. Juliocesar Young NRBC Normal [facility] Comment on above: Performed By: #### U JORI, PHOS, CMP, LDH #### [facility] [address] [address] [address] Juliocesar Young PLT 224 103/ul Normal 150-450 [facility] Comment on above: Performed By: #### U JORI, PHOS, CMP, LDH #### [facility] [address] [address] [address] Juliocesar Young RBC 4.82 106/ul Normal 4.20-5.40 [facility] Comment on above: Performed By: #### U JORI, PHOS, CMP, LDH #### [facility] [address] [address] [address] Juliocesar Young RDW 14.4 % Normal 11.0-15.0 [facility] Comment on above: Performed By: #### U JORI, PHOS, CMP, LDH #### [facility] [address] [place] [address] Dr. Juliocesar Young SEG # 7.32 103/ul Critically high 1.40-6.50 [facility] Comment on above: Performed By: #### U JORI, PHOS, CMP, LDH #### [facility] [address] [address] [address] Juliocesar Young SEG % 12.0 % Critically low 43.0-75.0 [facility] Comment on above: Performed By: #### U JORI, PHOS, CMP, LDH #### [facility] [address] [address] [address] Juliocesar Young WBC 61.0 103/ul Critically high 4.0-11.0 [facility] Comment on above: Performed By: #### U JORI, PHOS, CMP, LDH #### [facility] [address] [address] [address] Juliocesar Young LDHon 12-03-2021 LDH 183 U/L Normal 81-234 [facility] Comment on above: Performed By: #### L ACTFQ #### [facility] [address] [address] [address] Juliocesar Young PHOSPHORUSon 12-03-2021 Phosphate [Mass/Vol] 3.3 mg/dL Normal 2.6-4.7 [facility] Comment on above: Performed By: #### U JORI, PHOS, CMP, LDH #### [facility] [address] [place] [address] Dr. Juliocesar Young PROF 14(COMP METB)on 022 Albumin [Mass/Vol] 3.7 g/dL Normal 3.4-5.0 [facility] Comment on above: Performed By: #### L ACTFQ #### [facility] [address] [place] [address] Dr. Juliocesar Young Albumin/Globulin [Mass ratio] 1.0 {ratio} Normal [facility] Comment on above: Performed By: #### L ACTFQ #### [facility] [address] [place] [address] Dr. Juliocesar Young ALP [Catalytic activity/Vol] 82 U/L Normal 46-116 [facility] Comment on above: Performed By: #### L ACTFQ #### [facility] [address] [place] [address] Dr. Juliocesar Young ALT [Catalytic activity/Vol] 23 U/L Normal 14-59 [facility] Comment on above: Performed By: #### L ACTFQ #### [facility] [address] [place] [address] Dr. Juliocesar Young Anion gap [Moles/Vol] 14.0 mmol/L Normal [facility] Comment on above: Performed By: #### L ACTFQ #### [facility] [address] [place] [address] Dr. Juliocesar Young AST [Catalytic activity/Vol] 12 U/L Critically low 15-37 [facility] Comment on above: Performed By: #### L ACTFQ #### [facility] [address] [place] [address] Dr. Juliocesar Young Bilirubin [Mass/Vol] 0.4 mg/dL Normal 0.2-1.0 [facility] Comment on above: Performed By: #### L ACTFQ #### [facility] [address] [place] [address] Dr. Juliocesar Young Calcium [Mass/Vol] 8.6 mg/dL Normal 8.5-10.1 [facility] Comment on above: Performed By: #### L ACTFQ #### [facility] [address] [address] [address] Juliocesar Young Chloride [Moles/Vol] 104 mmol/L Normal 98-107 [facility] Comment on above: Performed By: #### L ACTFQ #### [facility] [address] [address] [address] Juliocesar Young CO2 [Moles/Vol] 26.2 mmol/L Normal 21.0-32.0 [facility] Comment on above: Performed By: #### L ACTFQ #### [facility] [address] [place] [address] Dr. Juliocesar Young Creatinine [Mass/Vol] 0.54 mg/dL Critically low 0.55-1.02 [facility] Comment on above: Performed By: #### L ACTFQ #### [facility] [address] [place] [address] Dr. Juliocesar Young EGFR-AF ANGOLAN >60 Normal >=60 [facility] Comment on above: Performed By: #### L ACTFQ #### [facility] [address] [place] [address] Dr. Juliocesar Young EGFR-NON AF ANGOLAN >60 Normal >=60 [facility] Comment on above: Performed By: #### L ACTFQ #### [facility] [address] [address] [address] Juliocesar Young Globulin (S) [Mass/Vol] 3.7 g/dL Normal [facility] Comment on above: Performed By: #### L ACTFQ #### [facility] [address] [place] [address] Dr. Juliocesar Young Glucose [Mass/Vol] 95 mg/dL Normal 74-106 [facility] Comment on above: Performed By: #### L ACTFQ #### [facility] [address] [place] [address] Dr. Juliocesar Young Potassium [Moles/Vol] 4.2 mmol/L Normal 3.5-5.1 [facility] Comment on above: Performed By: #### L ACTFQ #### [facility] [address] [place] [address] Dr. Juliocesar Young Protein [Mass/Vol] 7.4 g/dL Normal 6.1-8.2 [facility] Comment on above: Performed By: #### L ACTFQ #### [facility] [address] [place] [address] Dr. Juliocesar Young Sodium [Moles/Vol] 140 mmol/L Normal 136-145 [facility] Comment on above: Performed By: #### L ACTFQ #### [facility] [address] [place] [address] Dr. Juliocesar Young Urea nitrogen [Mass/Vol] 9.0 mg/dL Normal 7.0-18.0 [facility] Comment on above: Performed By: #### L ACTFQ #### [facility] [address] [place] [address] Dr. Juliocesar Young Urea nitrogen/Creatinine [Mass ratio] 16.7 mg/mg Normal [facility] Comment on above: Performed By: #### L ACTFQ #### [facility] [address] [place] [address] Dr. Juliocesar Young URIC ACID SERUMon 12-03-2021 Urate [Mass/Vol] 1.9 mg/dL Critically low 2.5-6.2 [facility] Comment on above: Performed By: #### U JORI, PHOS, CMP, LDH #### [facility] [address] [place] [address] Dr. Juliocesar Young HEPATITIS B SURFACE ANTIBODY QUANTon 11-28-2021 HEP B SURF AB 15.43 mIU/ml Normal [facility] Comment on above: Result Comment: INTE RPRETATION: NONREACTIVE<8.00 mIU/mL INDETERMINATE8.00 - 12.00 mIU/mL REACTIVE>12 mIU/mL Performed By: #### 4 [id number] #### [facility] [address] HEPATITIS B SURFACE ANTIGEN QUALon 11-28-2021 HEP B SURF AG QUAL Non-Reactive Normal NONREACTIVE The [facility] Comment on above: Performed By: #### 3 1400 #### [facility] [address] [place] [address], [facility] CBC W MANUAL DIFFon 11-26-19 22 ATYPICAL LYMPH # Normal The [facility] Comment on above: Performed By: #### U JORI, PHOS, CMP, LDH #### [facility] [address] [address] [address] Juliocesar Young ATYPICAL LYMPH % Normal The [facility] Comment on above: Performed By: #### U JORI, PHOS, CMP, LDH #### [facility] [address] [address] [address] Juliocesar Young BAND # 0.0 103/ul Normal 0.0-0.3 [facility] Comment on above: Performed By: #### U JORI, PHOS, CMP, LDH #### [facility] [address] [place] [address] Dr. Juliocesar Young BAND % 0 % Normal 0-5 [facility] Comment on above: Performed By: #### U JORI, PHOS, CMP, LDH #### [facility] [address] [address] [address] Juliocesar Young BASOM # 0.00 103/ul Normal 0.00-0.10 [facility] Comment on above: Performed By: #### U JORI, PHOS, CMP, LDH #### [facility] [address] [address] [address] Juliocesar Young BASOM % 0.0 % Critically low 0.2-2.0 [facility] Comment on above: Performed By: #### U JORI, PHOS, CMP, LDH #### [facility] [address] [place] [address] Dr. Juliocesar Young BLAST # Normal [facility] Comment on above: Performed By: #### U JORI, PHOS, CMP, LDH #### [facility] [address] [place] [address] Dr. Juliocesar Young BLAST % Normal [facility] Comment on above: Performed By: #### U JORI, PHOS, CMP, LDH #### [facility] [address] [address] [address] Juliocesar Young CORRECTED WBC Normal 4.0-11.0 [facility] Comment on above: Performed By: #### U JROI, PHOS, CMP, LDH #### [facility] [address] [place] [address] Dr. Juliocesar Young EOS # 0.00 103/ul Normal 0.00-0.70 [facility] Comment on above: Performed By: #### U JORI, PHOS, CMP, LDH #### [facility] [address] [place] [address] Dr. Juliocesar Young EOS% 0.0 % Critically low 0.9-7.0 [facility] Comment on above: Performed By: #### U JORI, PHOS, CMP, LDH #### [facility] [address] [place] [address] Dr. Juliocesar Young HCT 41.6 % Normal 36.0-48.0 [facility] Comment on above: Performed By: #### U JORI, PHOS, CMP, LDH #### [facility] [address] [place] [address] Dr. Juliocesar Young HGB 13.6 g/dl Normal 12.0-16.0 [facility] Comment on above: Performed By: #### U JORI, PHOS, CMP, LDH #### [facility] [address] [place] [address] Dr. Juliocesar Young LYMPHM # 83.42 103/ul Critically high 1.20-3.80 [facility] Comment on above: Performed By: #### U JORI, PHOS, CMP, LDH #### [facility] [address] [place] [address] Dr. Juliocesar Young LYMPHM% 97.0 % Critically high 20.5-60.0 [facility] Comment on above: Performed By: #### U JORI, PHOS, CMP, LDH #### [facility] [address] [address] [address] Juliocesar Young MCH 30.6 pg Normal 26.7-34.0 [facility] Comment on above: Performed By: #### U JORI, PHOS, CMP, LDH #### [facility] [address] [address] [address] Juliocesar Young MCHC 32.7 g/dl Normal 29.9-35.2 [facility] Comment on above: Performed By: #### U JORI, PHOS, CMP, LDH #### [facility] [address] [address] [address] Juliocesar Young MCV 93.7 fL Normal 81.0-99.0 [facility] Comment on above: Performed By: #### U JORI, PHOS, CMP, LDH #### [facility] [address] [place] [address] Dr. Juliocesar Young METAMYELOCYTE # Normal [facility] Comment on above: Performed By: #### U JORI, PHOS, CMP, LDH #### [facility] [address] [address] [address] Juliocesar Young METAMYELOCYTE % Normal [facility] Comment on above: Performed By: #### U JORI, PHOS, CMP, LDH #### [facility] [address] [address] [address] Juliocesar Young MONOM# 0.00 103/ul Critically low 0.30-0.80 [facility] Comment on above: Performed By: #### U JORI, PHOS, CMP, LDH #### [facility] [address] [address] [address] Juliocesar Young MONOM% 0.0 % Critically low 1.7-12.0 [facility] Comment on above: Performed By: #### U JORI, PHOS, CMP, LDH #### [facility] [address] [address] [address] Juliocesar Young MPV 10.2 fL Normal 9.5-13.5 [facility] Comment on above: Performed By: #### U JORI, PHOS, CMP, LDH #### [facility] [address] [place] [address] Dr. Juliocesar Young MYELOCYTE # Normal [facility] Comment on above: Performed By: #### U JORI, PHOS, CMP, LDH #### [facility] [address] [place] [address] Dr. Juliocesar Young MYELOCYTE % Normal [facility] Comment on above: Performed By: #### U JORI, PHOS, CMP, LDH #### [facility] [address] [place] [address] Dr. Juliocesar Young NRBC Normal [facility] Comment on above: Performed By: #### U JORI, PHOS, CMP, LDH #### [facility] [address] [place] [address] Dr. Juliocesar Young PLT 194 103/ul Normal 150-450 [facility] Comment on above: Performed By: #### U JORI, PHOS, CMP, LDH #### [facility] [address] [place] [address] Dr. Juliocesar Young RBC 4.44 106/ul Normal 4.20-5.40 [facility] Comment on above: Performed By: #### U JORI, PHOS, CMP, LDH #### [facility] [address] [place] [address] Dr. Juliocesar Young RDW 14.0 % Normal 11.0-15.0 [facility] Comment on above: Performed By: #### U JORI, PHOS, CMP, LDH #### [facility] [address] [place] [address] Dr. Juliocesar Young SEG # 2.58 103/ul Normal 1.40-6.50 [facility] Comment on above: Performed By: #### U JORI, PHOS, CMP, LDH #### [facility] [address] [place] [address] Dr. Juliocesar Young SEG % 3.0 % Critically low 43.0-75.0 [facility] Comment on above: Performed By: #### U JORI, PHOS, CMP, LDH #### [facility] [address] [place] [address] Dr. Juliocesar Young WBC 86.0 103/ul Critically high 4.0-11.0 [facility] Comment on above: Performed By: #### U JORI, PHOS, CMP, LDH #### [facility] [address] [place] [address] Dr. Juliocesar Young PERIPHERAL SMEARon 2 Pathologist Cyto stain Nom (Cvx/Vag) [ID] DR. JANESSA PRYOR Normal [facility] Comment on above: Result Comment: Leuk ocyosis with absloute lymphocytosis and smudge cells. Some lymphocytes show increased nuclear size but still with coarse chromatin. Definite prolymphocytes are not seen. If lymphocytosis persist longer than six months further evaluation to exclude a possible lymphoproliferative disorder may be indicated. Clinical correlation is suggested. Performed By: #### U JORI, PHOS, CMP, LDH #### [facility] [address] [place] [address] Dr. Juliocesar Young PROF 14(COMP METB)on 022 Albumin [Mass/Vol] 3.6 g/dL Normal 3.4-5.0 [facility] Comment on above: Performed By: #### C MP #### [facility] [address] [place] [address] Dr. Juliocesar Young Albumin/Globulin [Mass ratio] 1.0 {ratio} Normal [facility] Comment on above: Performed By: #### C MP #### [facility] [address] [place] [address] Dr. Juliocesar Young ALP [Catalytic activity/Vol] 94 U/L Normal 46-116 [facility] Comment on above: Performed By: #### C MP #### [facility] [address] [place] [address] Dr. Juliocesar Young ALT [Catalytic activity/Vol] 26 U/L Normal 14-59 [facility] Comment on above: Performed By: #### C MP #### [facility] [address] [place] [address] Dr. Juliocesar Young Anion gap [Moles/Vol] 12.0 mmol/L Normal [facility] Comment on above: Performed By: #### C MP #### [facility] [address] [address] [address] Juliocesar Young AST [Catalytic activity/Vol] 17 U/L Normal 15-37 [facility] Comment on above: Performed By: #### C MP #### [facility] [address] [address] [address] Juliocesar Young Bilirubin [Mass/Vol] 0.6 mg/dL Normal 0.2-1.3 [facility] Comment on above: Performed By: #### C MP #### [facility] [address] [address] [address] Juliocesar Young Calcium [Mass/Vol] 8.3 mg/dL Critically low 8.5-10.1 [facility] Comment on above: Performed By: #### C MP #### [facility] [address] [place] [address] Dr. Juliocesar Young Chloride [Moles/Vol] 105 mmol/L Normal 98-107 [facility] Comment on above: Performed By: #### C MP #### [facility] [address] [place] [address] Dr. Juliocesar Young CO2 [Moles/Vol] 26.3 mmol/L Normal 22.0-30.0 [facility] Comment on above: Performed By: #### C MP #### [facility] [address] [place] [address] Dr. Juliocesar Young Creatinine [Mass/Vol] 0.56 mg/dL Normal 0.52-1.04 [facility] Comment on above: Performed By: #### C MP #### [facility] [address] [place] [address] Dr. Juliocesar Young EGFR-AF ANGOLAN >60 Normal >=60 [facility] Comment on above: Performed By: #### C MP #### [facility] [address] [place] [address] Dr. Juliocesar Young EGFR-NON AF ANGOLAN >60 Normal >=60 [facility] Comment on above: Performed By: #### C MP #### [facility] [address] [place] [address] Dr. Juliocesar Young Globulin (S) [Mass/Vol] 3.7 g/dL Normal [facility] Comment on above: Performed By: #### C MP #### [facility] [address] [place] [address] Dr. Juliocesar Young Glucose [Mass/Vol] 103 mg/dL Normal 74-106 [facility] Comment on above: Performed By: #### C MP #### [facility] [address] [address] [address] Juliocesar Young Potassium [Moles/Vol] 4.3 mmol/L Normal 3.4-5.0 [facility] Comment on above: Performed By: #### C MP #### [facility] [address] [place] [address] Dr. Juliocesar Young Protein [Mass/Vol] 7.3 g/dL Normal 6.1-8.2 [facility] Comment on above: Performed By: #### C MP #### [facility] [address] [place] [address] Dr. Juliocesar Young Sodium [Moles/Vol] 139 mmol/L Normal 137-145 [facility] Comment on above: Performed By: #### C MP #### [facility] [address] [place] [address] Dr. Juliocesar Young Urea nitrogen [Mass/Vol] 10.0 mg/dL Normal 7.0-18.0 [facility] Comment on above: Performed By: #### C MP #### [facility] [address] [place] [address] Dr. Juliocesar Young Urea nitrogen/Creatinine [Mass ratio] 17.9 mg/mg Normal [facility] Comment on above: Performed By: #### C MP #### [facility] [address] [place], [place] [id number] Dr. Juliocesar Young NM PET CT WHOLE BODY 10-[address] WHOLE BODY [facility] Department of Radiology [address] [place] [id number] ===== Patient Name: DIAMOND GUERRERO : 1975 Sex: F Age: Race: White Pt. 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 QUESTION FOR THE RADIOLOGIST: , Experiencing increased sweating and hot flashes , Experiencing increased sweating and hot flashes , , , Ordering Provider - BOONE SALINAS MD , PROTOCOL: The patient was injected intravenously with12.073 millicuries of fluorine 18-FDG. Blood glucose level was98 mg/dL at the time of tracer administration. PET scan and CT data was acquired from whole body images were reconstructed in orthogonal projections. Multiplanar reformats were utilized. Attenuation corrected images were constructed using CT data. Fused images were reviewed. RADIOPHARMACEUTICAL: FDG/ 4-40 mCi, 12.073 Millicuries, Intravenous COMPARISON: CT chest September 06, 2020. CT neck, abdomen and pelvis July 26, 2021. FINDINGS: The brain is unremarkable, both on PET as well as CT. Multiple prominent lymph nodes are again present bilaterally throughout the neck. These are only faintly PET avid with a maximum SUV of 2.2. Extensive bilateral axillary and subpectoral adenopathy remains present. These lymph nodes are also faintly PET avid with a maximum SUV of 2.0. No significant mediastinal adenopathy identified. No pulmonary nodularity identified. A peritoneal nodes are present similar to the prior abdominal CT with a maximum SUV of 2.3 and the lymph node to the left of the aorta on CT image 130. Additional adenopathy is identified in the common iliac and external iliac chains bilaterally with a maximum SUV of 2.3. Physiologic activity noted in the myocardium, liver, spleen, GI and tracts. Additional findings on CT include anterior fixation at C6-C7. IMPRESSION: Multiple, prominent lymph nodes present in the bilateral cervical regions, bilateral axilla, retroperitoneum, as well as the common and external iliac chains bilaterally. Lymph nodes however only low-grade, essentially nondiagnostic PET activity with SUVs of 2.3 or lower. Electronically signed: Lissa Luther. Transcribed by: [email or web address], User Resident: Electronically Signed by: LISSA LUTHER @ 10/03/2021 03:35 PM Normal [facility] Comment on above: Order Comment: , Exp eriencing increased sweating and hot flashes , Experiencing increased sweating and hot flashes , , , Ordering Provider - BOONE SALINAS MD , POC GLUCOSE NCon 10-03-2021 Glucose [Mass/Vol] 98 mg/dL Normal 70-100 [facility] Comment on above: Performed By: #### 8 [id number] #### [address] [place] [address], [facility] CT CHEST W CONTRASTon 2021 CT CHEST W CONTRAST [facility] Department of Radiology [address] [place] [phone] ===== Patient Name: DIAMOND GUERRERO : 1975 Sex: F Age: Race: White Pt. Location: Patient Status: D Ordered Date: 08/01/2021 11:40:00 AM Completed Date: 09/06/2021 09:27 AM Requesting Provider: BOONE SALINAS Attending Provider: BOONE SALINAS Report Copy To: Signs & Symptoms: R91.8 Other nonspecific abnormal finding of lung field I10 Lesion of lung History: Mar Is patient on meds for HTN or DM? No, bmw Comments: in 4 months compare to previous, Exam: CT CHEST W CONTRAST ===== CT CHEST W CONTRAST 09/06/2021 9:27 AM CLINICAL INDICATIONS: R91.8 Other nonspecific abnormal finding of lung field I10 Lesion of lung TECHNOLOGIST COMMENTS: abnormal finding in left lung on abd ct recently per pt hx blood ca QUESTIONS PER RADIOLOGIST: in 4 months compare to previous, PROTOCOL: Axial CT images of the chest were obtained with IV contrast. CONTRAST: Contrast: OMNIPAQUE 350 (LOCM), 100 milliliter, Intravenous TECHNIQUE: Multidetector CT axial slices of the chest were obtained with IV contrast. Multiplanar reformats were performed and viewed on a separate workstation and reviewed to further define anatomy and possible pathology. All CT scans at this facility use dose modulation, iterative reconstruction, and/or weight based dosing when appropriate to reduce radiation dose to as low as reasonably achievable. COMPARISON: None. FINDINGS: Stable enlarged axillary lymph nodes. Scattered subcentimeter lung nodules unchanged. No new enlarged mediastinal lymph nodes. No developing airspace opacities, pleural pericardial effusions. No osseous lesions. IMPRESSION: Stable axillary adenopathy. Stable subcentimeter lung nodules. Consider six-month follow-up to assess for stability. Electronically signed: Logan Wilson. Transcribed by: [email or web address], User Resident: Electronically Signed by: LOGAN WILSON @ 09/07/2021 09:32 AM Normal [facility] Comment on above: Order Comment: in 4 months compare to previous, CT ABDOMEN AND PELVIS W IV C [facility] 07-26-2021 CT ABDOMEN AND PELVIS W IV CONTRAST [facility] Department of Radiology [address] [place] [phone] ===== Patient Name: DIAMOND GUERRERO : 1975 Sex: F Age: Race: White Pt. 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 CONTRAST: TECHNIQUE: Multiple detector CT axial slices of the abdomen and pelvis were obtained with IV contrast. Multiplanar reformats were performed and viewed on a separate workstation and reviewed to further define anatomy and possible pathology. All CT scans at this facility use dose modulation, iterative reconstruction, and/or weight based dosing when appropriate to reduce radiation dose to as low as reasonably achievable COMPARISON: None. FINDINGS: Lower Chest: Please refer to chest CT report from the same day for full details. ABDOMEN: Liver: Within normal limits. Bile Ducts: Normal caliber. Gallbladder: No calcified gallstones. Normal caliber wall. Pancreas: Within normal limits. Spleen: Few small calcific densities within the spleen likely representing small calcified granulomas. Adrenals: Within normal limits. Kidneys: Within normal limits. Pelvis: Reproductive Organs: No pelvic masses. Uterus is absent likely from prior hysterectomy. Ureters: Within normal limits. Bladder: Within normal limits. Bowel: Normal caliber. Uncomplicated diverticulosis in the sigmoid colon. Mesenteric Lymph Nodes: Mesenteric lymphadenopathy Peritoneum: No ascites or free air, no fluid collection. Vessels: within normal limits. Retroperitoneum: Significant pathologic retroperitoneal lymphadenopathy seen at the aortocaval region, paraortic region and extending along the iliac arteries bilaterally. Abdominal Wall: Small umbilical hernia containing only omental fat. Bones: Within normal limits IMPRESSION: Significant pathologic retroperitoneal adenopathy with mesenteric lymphadenopathy. Multiple soft tissue nodules are also seen in the retroperitoneum along the left iliac fossa likely represent additional pathologic lymphadenopathy. Bilateral external and internal iliac as well as common iliac pathologic adenopathy. Prominent bilateral inguinal lymph nodes as well Evidence of prior hysterectomy. Uncomplicated diverticulosis in the sigmoid colon. Small calcified granulomas in the spleen. Small umbilical hernia. Presumed right adnexal cyst. Electronically signed: Angeles Hutchison. Transcribed by: [email or web address], User Resident: Electronically Signed by: ANGELES HUTCHISON @ 07/26/2021 02:12 PM Normal [facility] CT CHEST W CONTRASTon 2020 CT CHEST W CONTRAST [facility] Department of Radiology [address] [place] [phone] ===== Patient Name: DIAMOND GUERRERO : 1975 Sex: F Age: Race: White Pt. 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 CONTRAST: Contrast: OMNIPAQUE 350 (LOCM), 100 milliliter, Intravenous TECHNIQUE: Multiple detector CT axial slices of the chest were obtained with IV contrast. Multiplanar reformats were performed and viewed on a separate workstation and reviewed to further define anatomy and possible pathology. COMPARISON: None. FINDINGS: The thyroid and the thoracic inlet are unremarkable. The central airways are patent. No thoracic aortic aneurysm or dissection. No pulmonary emboli identified. No mediastinal adenopathy. No coronary artery calcification, cardiomegaly or pericardial effusion. No pneumothorax or pleural effusion. Multiple pulmonary nodules, the most significant include a 2 mm nodule in the right upper lobe anteriorly on image 90. Two nodules in the right middle lobe on image 203 measuring a maximum of 5 mm. 4 mm nodule in the base of the left lower lobe on image 307. 5 mm right upper lobe nodule along the minor fissure on image 162. Significant adenopathy is appreciated in the axilla bilaterally with lymph nodes as large as 2.9 cm in transverse diameter. The study viewed at bone window shows anterior fusion of the lower cervical spine. IMPRESSION: Significant bilateral axillary adenopathy. Multiple small pulmonary nodules measuring 5 mm or less of uncertain significance. CT follow-up in 4-[address] scans at this facility use dose modulation, iterative reconstruction, and/or weight based dosing when appropriate to reduce radiation dose to as low as reasonably achievable Electronically signed: Lissa Luther. Transcribed by: [email or web address], User Resident: Electronically Signed by: LISSA LUTHER @ 07/26/2021 01:10 PM Normal [facility] CT SOFT TISSUE NECK W CONTRA [place] 07-26-2021 CT SOFT TISSUE NECK W CONTRAST [facility] Department of Radiology [address] [place] [id number] ===== Patient Name: DIAMOND GUERRERO : 1975 Sex: F Age: Race: White Pt. 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 has 3 ct's Comments: Exam: CT SOFT TISSUE NECK W CONTRAST ===== CT SOFT TISSUE NECK W CONTRAST 07/26/2021 11:51 AM CLINICAL INDICATIONS: C91.90 Lymphoid leukemia, unspecified not having achieved remission I10 TECHNOLOGIST COMMENTS: 1 Yr f/u Lymphoid leukemia, unspecified not having achieved remission QUESTIONS FOR RADIOLOGIST: PROTOCOL: Axial CT images of the soft tissue neck were obtained with IV contrast. CONTRAST: Contrast: OMNIPAQUE 350 (LOCM), 100 milliliter, Intravenous TECHNIQUE: Multidetector CT axial slices of the neck were obtained with IV contrast. Volumetric acquisition sagittal, coronal, and 3-D reconstructions were performed and viewed on a separate workstation. All CT scans at this facility use dose modulation, iterative reconstruction, and/or weight based dosing when appropriate to reduce radiation dose to as low as reasonably achievable. COMPARISON: 06/17/2013 FINDINGS: Nasopharynx: Within normal limits. Suprahyoid Neck: Within normal limits Infrahyoid Neck: Within normal limits. Thyroid: Within normal limits. Thoracic Inlet and lung apices: Small pleural-based pulmonary nodules are seen bilaterally. Please see right upper lobe posterior segments in axial image 34 and left upper lobe laterally in axial image 20 and laterally in axial image 53. Orbits: Within normal limits. Paranasal sinuses: Clear. Skull base: Intact. Lymph Nodes: Significant bilateral neck lymphadenopathy involving all stations and including the carotid sheath, posterior triangle, supraclavicular region, submental, submandibular region as well as bilateral axilla. Small lymph nodes are also seen in the superior mediastinum. Vascular Structures: Within normal limits. Other Findings: Evidence of prior fusion at C5-6 and anterior hardware fusion with strands cortical screws at C6-7, new since prior study. Straightening of the cervical lordosis with no acute bony pathology appreciated. IMPRESSION: Extensive bilateral neck, supraclavicular and axillary adenopathy with few prominent lymph nodes in the superior mediastinum as well. Electronically signed: Angeles Hutchison. Transcribed by: [email or web address], User Resident: Electronically Signed by: ANGELES HUTCHISON @ 07/26/2021 02:04 PM Normal [facility] CBC W/DIFFon 07-06-2021 ABS NEUTROPHILS 10.6 10*3/uL High 1.6-7.6 [facility] Comment on above: Performed By: #### 3 1513, 19246 #### [facility] [address] [place] [address], [facility] Basophils (Bld) [#/Vol] 0.0 10*3/uL Normal 0.0-0.2 [facility] Comment on above: Performed By: #### 3 1513, 20740 #### [facility] [address] [place] [address], [facility] Basophils/100 WBC (Bld) 0.0 % Normal 0.0-1.0 [facility] Comment on above: Performed By: #### 3 1513, 37548 #### [facility] [address] [facility] [place] [address], [facility] Eosinophils (Bld) [#/Vol] 0.3 10*3/uL Normal 0.0-0.5 [facility] Comment on above: Performed By: #### 3 1513, 48602 #### [facility] [address] [facility] [place] [address], [facility] Eosinophils/100 WBC (Bld) 1.0 % Normal 0.0-6.0 [facility] Comment on above: Performed By: #### 3 1513, 03079 #### [facility] [address] [place] [address], [facility] Erythrocyte distribution width (RBC) [Ratio] 12.3 % Normal 11.5-15.0 [facility] Comment on above: Performed By: #### 3 151, 40853 #### [facility] [address] [place] [address], [facility] GIANT PLATELETS Present Normal [facility] Comment on above: Performed By: #### 3 151, 94015 #### [facility] [address] [place] [address], [facility] Hematocrit (Bld) [Volume fraction] 44.6 % Normal 36.0-45.0 [facility] Comment on above: Performed By: #### 3 151, 08987 #### [facility] [address] [place] [address], [facility] Hemoglobin (Bld) [Mass/Vol] 14.5 g/dL Normal 12.0-15.0 [facility] Comment on above: Performed By: #### 3 151, 85712 #### [facility] [address] [place] [address], [facility] Lymphocytes (Bld) [#/Vol] 19.2 10*3/uL High 1.2-4.0 [facility] Comment on above: Performed By: #### 3 151, 47854 #### [facility] [address] [place] [address], [facility] Lymphocytes/100 WBC (Bld) 62.6 % High 20.0-45.0 [facility] Comment on above: Performed By: #### 3 151, 65431 #### [facility] [address] [facility] [place] [address], [facility] MCH (RBC) [Entitic mass] 29.6 pg Normal 27.0-33.0 [facility] Comment on above: Performed By: #### 3 151, 36013 #### [facility] [address] [place] [address], [facility] MCHC (RBC) [Mass/Vol] 32.5 g/dL Normal 32.0-35.0 [facility] Comment on above: Performed By: #### 3 151, 24476 #### [facility] [address] [facility] [address], [facility] MCV (RBC) [Entitic vol] 91.0 fL Normal 82.0-98.0 [facility] Comment on above: Performed By: #### 3 1513, 82995 #### [facility] [address] [facility] [place] [address], [facility] Monocytes (Bld) [#/Vol] 0.6 10*3/uL Normal 0.1-1.0 [facility] Comment on above: Performed By: #### 3 1513, 29049 #### [facility] [address] MONOS 2.0 % Low 5.0-12.0 [facility] Comment on above: Performed By: #### 3 1513, 97192 #### [facility] [address] [facility] Neutrophils/100 WBC (Bld) 34.4 % Low 40.0-72.0 [facility] Comment on above: Performed By: #### 3 1513, 91446 #### [facility] [address] Nucleated RBC/100 WBC (Bld) [Ratio] 0 % Normal 0-0 [facility] Comment on above: Performed By: #### 3 1513, 66835 #### [facility] [address] [facility]. [address] OTHER 1 Checked by Eve Crawford M.D. Normal [facility] Comment on above: Result Comment: Resu lt changed by RAHEL on 07/07/2021 09:55. The previous value was Preliminary report; verified report to follow. Performed By: #### 3 1513, 66619 #### [facility] [address] [place] [address], [facility] PLAT CNT 211 10*3/uL Normal 150-400 [facility] Comment on above: Performed By: #### 3 1513, 23758 #### [facility] [address] [place] [address], [facility] RBC (Bld) [#/Vol] 4.90 10*6/uL Normal 3.80-5.00 [facility] Comment on above: Performed By: #### 3 1513, 50295 #### [facility] [address] [place] [address], [facility] SMUDGE CELLS Present Normal [facility] Comment on above: Performed By: #### 3 1513, 13219 #### [facility] [address] [place] [id number], [facility] WBC (Bld) [#/Vol] 30.69 10*3/uL High 4.00-10.60 [facility] Comment on above: Performed By: #### 3 1513, 56526 #### [facility] [address] [place] [address], [facility] COMP METABOLIC PANELon 07-06 Albumin [Mass/Vol] 4.3 g/dL Normal 3.5-5.7 [facility] Comment on above: Performed By: #### 1 61, 82758 #### [facility] [address] [place] [address], [facility] ALKALINE PHOSPH 91 IU/L Normal 34-104 [facility] Comment on above: Performed By: #### 1 61, 00462 #### [facility] [address] [place] [address], [facility] ALT [Catalytic activity/Vol] 12 U/L Normal 7-52 [facility] Comment on above: Performed By: #### 1 61, 39793 #### [facility] [address] [place] [address], [facility] AST [Catalytic activity/Vol] 14 U/L Normal 13-39 [facility] Comment on above: Performed By: #### 1 61, 72006 #### [facility] [address] [place] [address], [place] Bilirubin [Mass/Vol] 0.4 mg/dL Normal 0.3-1.0 [facility] Comment on above: Performed By: #### 1 61, 99751 #### [facility] [address] [place] [address], [place] Calcium [Mass/Vol] 8.9 mg/dL Normal 8.6-10.3 [facility] Comment on above: Performed By: #### 1 61, 96327 #### [facility] [address] [place] [address], [place] Chloride [Moles/Vol] 107 mmol/L Normal 98-107 [facility] Comment on above: Performed By: #### 1 61, 73113 #### [facility] [address] [place] [address], [place] CO2 [Moles/Vol] 22 mmol/L Normal 21-31 [facility] Comment on above: Performed By: #### 1 61, 32210 #### [facility] [address] [place] [address], [place] Creatinine [Mass/Vol] 0.58 mg/dL Low 0.60-1.20 [facility] Comment on above: Performed By: #### 1 61, 65190 #### [facility] [address] [place] [address], [place] GFR/1.73 sq M.predicted among blacks MDRD (S/P/Bld) [Vol rate/Area] mL/min/{1.73_m2} Normal >60 [facility] Comment on above: Performed By: #### 1 61, 65846 #### [facility] [address] [place] [address], [place] GFR/1.73 sq M.predicted among non-blacks MDRD (S/P/Bld) [Vol rate/Area] mL/min/{1.73_m2} Normal >60 [facility] Comment on above: Performed By: #### 1 61, 52777 #### [facility] [address] [place] [address], [place] Glucose [Mass/Vol] 87 mg/dL Normal 70-100 [facility] Comment on above: Performed By: #### 1 61, 31470 #### [facility] [address] [place] [address], [place] Potassium [Moles/Vol] 4.2 mmol/L Normal 3.5-5.1 [facility] Comment on above: Performed By: #### 1 61, 48016 #### [facility] [address] [place] [address], [place] Protein [Mass/Vol] 6.9 g/dL Normal 6.0-8.3 [facility] Comment on above: Performed By: #### 1 61, 77043 #### [facility] [address] [place] [address], [place] Sodium [Moles/Vol] 138 mmol/L Normal 136-145 [facility] Comment on above: Performed By: #### 1 61, 69269 #### [facility] [address] [place] [address], [place] Urea nitrogen [Mass/Vol] 16 mg/dL Normal 7-25 [facility] Comment on above: Performed By: #### 1 61, 44024 #### [facility] [address] [place] [address], [place] HEMATOLOGY COMPLETE EVALUATI ON ARDIon 07-06-2021 RESULT Results to be mailed directly to physician's office by reference lab. Normal The [facility] Comment on above: Result Comment: Test performed by [facility] * [address], [address] * [place], [place] * [phone] Peer Counselor: Anupam Beck M.D. RESULTS FAXED TO [phone] Performed By: #### 3 1839 #### [facility] [address] [facility] [place] [address], [facility] HEMOGRAM VIRY POCon 07-06-20 21 ABS NEUT VIRY POC 5.4 10*3/uL Normal 1.6-7.6 [facility] Comment on above: Performed By: #### 3 1513, 40202 #### [facility] [address] [facility]. [address] Hematocrit (Bld) [Volume fraction] 43.6 % Normal 36.0-45.0 [facility] Comment on above: Performed By: #### 3 1513, 26857 #### [facility] [address] [facility]. [address] Hemoglobin (Bld) [Mass/Vol] 14.6 g/dL Normal 12.0-15.0 [facility] Comment on above: Performed By: #### 3 1513, 30945 #### [facility] [address] [facility] [place] [address], [facility] PLAT CNT VIRY POC 205 10*3/uL Normal 150-400 [facility] Comment on above: Performed By: #### 3 1513, 50801 #### [facility] [address] [facility] [place] [address], [facility] WBC (Bld) [#/Vol] 29.9 10*3/uL High 4.0-10.6 [facility] Comment on above: Performed By: #### 3 1513, 45740 #### [facility] [address] [facility]. [address] LDH BLOODon 07-06-2021 LDH 183 Units/L Normal 140-271 [facility] Comment on above: Performed By: #### 1 0062, 05635 #### [facility] [address] [place] [address], [facility] PROTEIN ELECT D[place]an 07-06-2021 Protein [Mass/Vol] 6.8 g/dL Normal 6.0-8.3 [facility] Comment on above: Performed By: #### 4 1661 #### [facility] [address] [place] [address], [facility] PROTEIN ELECT Normal [facility] Comment on above: Result Comment: Norm al Pattern. Prominent albumin peak is seen along with normal fractions of alpha 1, alpha 2, beta and gamma globulins. SEE SEPARATE REPORT Performed By: #### 4 1661 #### [facility] [address] [facility]. [address] Vital Signs Date Time Vital Sign Value Performing Clinician Facility 02-21-2023 14:00-0400 Body height Bernice Chavis Other [facility] Other 02-21-2023 14:00-0400 Body mass index (BMI) [Ratio] 32.23 kg/m2 Bernice Chavis Other [facility] Other 02-21-2023 14:00-0400 Body temperature 98.2 [degF] Bernice Chavis Other [facility] Other 02-21-2023 14:00-0400 Body weight 96.16 kg Bernice Chavis Other [facility] Other 02-21-2023 14:00-0400 Diastolic blood pressure 86 mm[Hg] Bernice Chavis Other [facility] Other 02-21-2023 14:00-0400 SaO2% (BldA) [Mass fraction] 99 % Bernice Chavis Other [facility] Other 07-19-2023 14:00-0400 Systolic blood pressure 122 mm[Hg] Bernice Kumarmer Other [facility] Other 06-13-2021 12:15-0500 Body height Bernice Chavis Other [facility] Other 06-13-2021 12:15-0500 Body mass index (BMI) [Ratio] 33.69 kg/m2 Bernice Kumarmer Other [facility] Other 06-13-2021 12:15-0500 Body temperature 98.1 [degF] Bernice Palmira Other [facility] Other 06-13-2021 12:15-0500 Body weight 100.52 kg Bernice Palmira Other [facility] Other 06-13-2021 12:15-0500 Diastolic blood pressure 84 mm[Hg] Bernice Kumarmer Other [facility] Other 06-13-2021 12:15-0500 Respiratory rate 18 /min Bernice Kumarmer Other [facility] Other 06-13-2021 12:15-0500 SaO2% (BldA) [Mass fraction] 97 % Bernice Palmira Other [facility] Other 06-13-2021 12:15-0500 Systolic blood pressure 124 mm[Hg] Bernice Chavis Other [facility] Other Encounters Encounter Date Encounter Type Care Provider Facility Start: [facility] Start: 05-31-2023 End: 05-31-2023 ambulatory Bernice Kumarmer Other [facility] Other Start: 05-31-2023 Telephone encounter Bernice Roper [facility] Start: 05-28-2023 End: 05-28-2023 ambulatory Bernice Chavis Facility:[facility] Start: 05-28-2023 End: 05-28-2023 Patient encounter procedure DO Bernice Chavis Work Phone: [facility] Work Phone: Start: 05-28-2023 End: 05-28-2023 ambulatory DO Bernice Chavis Work Phone: [facility] Work Phone: Start: 05-28-2023 Telephone encounter Bernice Roper [facility] [place] Start: 05-23-2023 End: 05-23-2023 [facility] Start: 05-22-2023 End: 05-22-2023 ambulatory Bernice Chavis Facility:[facility] Start: 05-22-2023 End: 05-22-2023 ambulatory DO Bernice Chavis Work Phone: [facility] Work Phone: Start: 05-22-2023 End: 05-22-2023 Patient encounter procedure DO Bernice Chavis Work Phone: [facility] Work Phone: Start: 04-11-2023 End: 04-12-2023 [facility] Start: 03-28-2023 End: 03-28-2023 [facility] Start: 03-09-2023 End: 03-09-2023 ambulatory Vicente Tam Other [facility] Other Start: 03-09-2023 Telephone encounter Vicente LIRIANO [facility] Start: 02-21-2023 End: 02-21-2023 ambulatory Bernice Chavis Other [facility] Other Start: 02-21-2023 Encounter for genera l adult medical examination without abnormal findings Bernice Chavis [facility] [place] Start: 02-21-2023 Periodic preventive med est patient 40-64yrs Bernice Chavis [facility] [place] Start: 11-22-2022 ambulatory MOHAMMAD H. SALINAS [facility] Start: 10-11-2022 End: 10-12-2022 ambulatory MOHAMMAD SALINAS Facility:[facility] Start: 07-18-2022 End: 07-19-2022 ambulatory MOHAMMAD SALINAS Facility:[facility] Start: 04-04-2022 End: 04-05-2022 ambulatory MOHAMMAD SALINAS Facility:[facility] Start: 03-24-2022 End: 03-25-2022 ambulatory MOHAMMAD H SALINAS Facility:[facility] Start: 03-16-2022 End: 03-16-[address] SARITHA XAVIER . Facility:[facility] Start: 03-15-2022 End: 03-15-[address] SARITHA XAVIER . Facility:[facility] Start: 03-13-2022 End: 03-14-2022 ambulatory MOHAMMAD H SALINAS Facility:[facility] Start: 02-23-2022 End: 02-24-2022 ambulatory MOHAMMAD SALINAS Facility:[facility] Start: 02-03-2022 End: 02-03-2022 Patient encounter procedure MOHAMMAD JAVIER SALINAS [facility] Start: 01-26-2022 End: 01-27-2022 ambulatory MOHAMMAD SALIANS Facility:[facility] Start: 01-10-2022 End: 01-11-2022 ambulatory MOHAMMAD SALINAS Facility:[facility] Start: 12-30-2021 End: 12-30-2021 ambulatory MOHAMMAD H SALINAS Facility:[facility] Start: 12-29-2021 End: 12-30-2021 ambulatory MOHAMMAD SALINAS Facility:[facility] Start: 12-26-2021 End: 12-26-2021 ambulatory REFERRED SELF Facility:[facility] Start: 12-20-2021 End: 12-21-[address] DOCTOR NGUYEN Facility:[facility] Start: 12-12-2021 End: 12-13-[address] DOCTOR NGUYEN Facility:[facility] Start: 12-05-2021 End: 12-05-2021 ambulatory REFERRED SELF Facility:[facility] Start: 12-03-2021 End: 12-04-2021 ambulatory BERNICE CHAVIS Facility: Start: 11-29-2021 End: 11-29-2021 ambulatory MOHAMMAD H SALINAS Facility:[facility] Start: 11-25-2021 End: 11-26-2021 ambulatory BERNICE CHAVIS Facility: Start: 10-03-2021 End: 10-04-2021 ambulatory REFERRED SELF Facility:[facility] Start: 09-28-2021 End: 09-28-2021 ambulatory Bernice Chavis Other [facility] Other Start: 09-28-2021 Telephone encounter Bernice Chavis [facility] [place] Start: 09-27-2021 End: 09-27-2021 ambulatory Bernice Chavis Other [facility] Other Start: 09-27-2021 Telephone encounter Bernice Chavis [facility] [place] Start: 09-06-2021 End: 09-07-2021 ambulatory MOHAMMAD H SALINAS Facility:[facility] Start: 07-26-2021 End: 07-27-2021 ambulatory MOHAMMAD H SALINAS Facility:[facility] Start: 06-26-2021 End: 06-26-2021 ambulatory Bernice Chavis Other [facility] Other Start: 06-26-2021 Encounter by desmond Chavis [facility] [place] Start: 06-13-2021 End: 06-13-2021 ambulatory Bernice Chavis Other [facility] Other Start: 06-13-2021 Office outpatient vi sit 15 minutes Bernice Palmira [facility] [place] Start: 06-13-2021 Telephone encounter Bernice Roper [facility] Procedures Date Procedure Procedure Detail Performing Clinician Start: 05-28-2023 Mammography of right breast DO Bernice Chavis Work Phone: Start: 05-28-2023 Ultrasonography of r ight breast DO Bernice Chavis Work Phone: Start: 05-22-2023 Screening mammograph y of bilateral breasts DO Bernice Chavis Work Phone: Start: 03-28-2023 Follow-up visit Follow-up MOHAMMA D H. SALINAS Start: 09-17-2017 right transforaminal epidural steroid injection L3-4 1 MOHAMMAD SALINAS Comment on above: 90% relief for 5 day s ankle surgery 2 MOHAMMAD MOODY HID Comment on above: left ankle cervical spine surgery 3 MOH AMMAD SALINAS Comment on above: C5/C6--[facility] Hysterectomy MOHAMMAD SALINAS Immunizations Immunization Date Immunization Notes Care Provider Antonella chase 12-11-2020 COVID-19, mRNA, LNP- S, PF, 30 mcg/0.3 mL dose MOHAMMAD SALINAS [facility] Comment on above: Reason for Medicatio n: Prophylaxis 11-20-2020 COVID-19, mRNA, LNP- S, PF, 30 mcg/0.3 mL dose MOHAMMAD SALINAS [facility] Comment on above: Reason for Medicatio n: Prophylaxis Payers Date Payer Category Payer Self-pay [id number] 2022 Medicaid [id number] 2016 Unknown [id number] 2.1 [id number] 1974 Unknown [id number] 2.16.8 40.1.481088.3.579.2.647 1974 Unknown [id number] 2.16.8 40.1.731973.3.579.2.647 1974 Unknown [id number] 2.16.8 40.1.180646.3.579.2.647 1974 Unknown [id number] 2.16.8 40.1.093501.3.579.2.647 1974 Unknown [id number] 2.16.8 40.1.417836.3.579.2.647 1974 Unknown [id number] 2.16.8 40.1.566283.3.579.2.647 1974 Unknown [id number] 2.16.8 40.1.276241.3.579.2.647 1974 Unknown [id number] 2.16.8 40.1.620731.3.579.2.647 1974 Unknown [id number] 2.16.8 40.1.950316.3.579.2.647 1974 Unknown [id number] 2.16.84 0.1.002568.3.579.2.593 1974 Unknown [id number] 2.16.84 0.1.069620.3.579.2.593 1974 Unknown [id number] 2.16.84 0.1.538122.3.579.2.593 1974 Unknown [id number] 2.16.84 0.1.720189.3.579.2.593 1974 Unknown [id number] 2.16.84 0.1.719670.3.579.2.593 1974 Unknown [id number] 2.16.84 0.1.861606.3.579.2.593 1974 Unknown [id number] 2.16.84 0.1.034980.3.579.2.593 1974 Unknown [id number] 2.16.84 0.1.480872.3.579.2.593 1974 Unknown [id number] 2.16.84 0.1.164015.3.579.2.593 1974 Unknown [id number] 2.16.84 0.1.002050.3.579.2.593 1974 Unknown [id number] 2.16.84 0.1.012564.3.579.2.593 1974 Unknown [id number] 2.16.84 [id number] 1975 Unknown [id number] 1975 Unknown [id number] 1960 Unknown [id number] Unknown [id number] Unknown [id number] Social History Date Type Detail Facility Unknown if ever smoked [facility] Other Sex Assigned At [facility] Other Tobacco smoking status No Smokin g Status Entered [facility] Start: 1975 Sex Assigned At Female F [facility] Start: 03-04-2021 Tobacco smoking stat us NMIS Ex-smoker (finding) [facility] Clinical Notes 06-13-2021 to 10-22-2023 Note Date & Type Note Facility 10-22-2023 Note ------ Attestation with edits by Estrella Santa MD at 10/22/2023 11:59 AM I personally saw and examined the patient on the same date of service as fellow Dr. Chao. I discussed the findings and therapeutic plan with the fellow . I agree with the documentation, except for any edits/updates below. Teaching Physician's Revisions: Pt w CLL ON maint acala Doing well. Labs are good Cont treatment Will transfer to Dr. Mcintosh at [facility] . I personally discussed the case with him. Estrella Santa MD ------ HEMATOLOGY/ONCOLOGY PROGRESS NOTE [facility] Patient Name: Diamond Guerrero Date of : 1975 Patient Care Team: Bernice Chavis MD as PCP - General (Family Medicine) Boone Salinas MD (Hematology and Oncology) Estrella Santa MD (Hematology and Oncology) Nicol Del Real NP as Consulting Physician (Hematology and Oncology) Diamond Guerrero is a 48 y.o. woman who is an established patient with CLL seen today for follow-up in the Hematology and Medical Oncology clinic. Subjective Interval History: Diamond Guerrero Presents today for 7-month follow-up visit for CLL being treated with acalabrutinib. She has now developed night sweats. Previously all her B symptoms had resolved. Denies any fever, chills, shortness of breath, nausea, vomiting, diarrhea, constipation, urinary urgency or frequency, numbness or tingling in the extremities. Patient had labs done at out[facility] ; they are being faxed now. Oncology History CLL (chronic lymphocytic leukemia) (CMS/HCC) 07/2020 Initial Diagnosis CLL (chronic lymphocytic leukemia) (CMS/HCC) Initial presentation -- Presented with left-sided neck mass, lymphocytosis Initial workup: flow cytometry was suggestive of CLL CT-a/p -- bilateral axillary, inguinal and RP lymphadenopathy Initial tx -- active surveillance, was following with Dr. aMgan Francis at [facility] 07/06/2021 Pathology SPEP negative for monoclonal protein, CBC showed WBC 30.67, absolute lymphocyte 19.2, normal hemoglobin and platelet. LDH negative. 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 Lymph nodes however only low-grade, essentially nondiagnostic PET activity with SUVs of 2.3 or lower. 10/31/2021 - Chemotherapy obinutuzumab (Gazyva) 100 mg in sodium chloride 0.9 % 100 mL IVPB, 100 mg, intravenous, Once, 1 of 1 cycle obinutuzumab (Gazyva) 900 mg in sodium chloride 0.9 % 286 mL IVPB, 900 mg, intravenous, Once, 5 of 5 cycles Treatment Details Treatment goal Control Plan Name OP Acalabrutinib + Obinutuzumab, 28 Day Cycles - CLL/SLL Status Active Start Date 10/31/2021 End Date 08/28/2023 (Planned) Provider Boone Salinas MD Chemotherapy obinutuzumab (Gazyva) 100 mg in sodium chloride 0.9 % 100 mL IVPB, 100 mg, intravenous, Once, 1 of 1 cycle obinutuzumab (Gazyva) 900 mg in sodium chloride 0.9 % 286 mL IVPB, 900 mg, intravenous, Once, 5 of 5 cycles Other History: - Relevant medical/surgical/family/social histories, medications, problem list and allergies reviewed and updated with patient during the office visit. Review of Systems: Review of Systems Constitutional: Negative for activity change, appetite change, chills, diaphoresis, fatigue, fever and unexpected weight change. HENT: Negative. Eyes: Negative. Respiratory: Negative. Negative for cough and shortness of breath. Cardiovascular: Positive for leg swelling (minimal). Negative for chest pain and palpitations. Gastrointestinal: Negative for abdominal pain, constipation and diarrhea. Endocrine: Negative. Genitourinary: Negative. Musculoskeletal: Negative. Skin: Negative. Neurological: Negative. Hematological: Negative. Psychiatric/Behavioral: Negative. Objective BP 136/66 (BP Location: Left arm, Patient Position: Sitting, BP Cuff Size: Adult) Pulse 84 Ht 1.727 m (5' 8 ) Wt 101 kg (223 lb) LMP (LMP Unknown) SpO2 99% BMI 33.91 kg/m??? ECOG Performance Status: 1 - Symptomatic but completely ambulatory Physical Exam Vitals and nursing note reviewed. Constitutional: General: She is not in acute distress. Appearance: Normal appearance. She is obese. She is not diaphoretic. Eyes: General: No scleral icterus. Conjunctiva/sclera: Conjunctivae normal. Cardiovascular: Rate and Rhythm: Normal rate and regular rhythm. Heart sounds: No murmur heard. Pulmonary: Effort: Pulmonary effort is normal. Breath sounds: (more content not included)... [facility] 07-10-2023 Note Reviewed last note f rom 05/23/2023 for continuation of acalabrutinib with Rx due to fill. Refill appropriate, sent to appropriate pharmacy. Patient to keep intended follow up for 09/26/2023 [facility] 05-23-2023 Note HEMATOLOGY/ONCOLOGY PROGRESS NOTE [facility] Patient Name: Diamond Guerrero Date of : 1975 Patient Care Team: Bernice Chavis MD as PCP - General (Family Medicine) Boone Salinas MD (Hematology and Oncology) Estrella Santa MD (Hematology and Oncology) Nicol Del Real NP as Consulting Physician (Hematology and Oncology) Diamond Guerrero is a 47 y.o. woman who is an established patient with CLL seen today for follow-up in the Hematology and Medical Oncology clinic. Subjective Interval History: Diamond Guerrero Presents today for follow-up visit for CLL being treated with acalabrutinib. Over the last 2 weeks, pt has noted recurrence of night sweats/hot flashes that seem to be worsened by a carbohydrate-heavy meal before bed. She also has a medical marijuana card and uses marijuana before sleep, but has been out for 2 weeks. Otherwise, she denies fatigue, change in appetite, weight loss, new masses or nodules, fever, chills, shortness of breath, nausea, vomiting, diarrhea, constipation, or leg pain or swelling. Pt reports she had a mammogram done yesterday at [facility] and asymmetry was noted with a nodular finding in the right breast. Follow up imaging is planned along with possible biopsy. She did not have labs drawn prior to this appointment. Oncology History CLL (chronic lymphocytic leukemia) (CMS/HCC) 07/2020 Initial Diagnosis CLL (chronic lymphocytic leukemia) ([facility]/HCC) Initial presentation -- Presented with left-sided neck mass, lymphocytosis Initial workup: flow cytometry was suggestive of CLL CT-a/p -- bilateral axillary, inguinal and RP lymphadenopathy Initial tx -- active surveillance, was following with Dr. Magan Francis at [facility] 07/06/2021 Pathology SPEP negative for monoclonal protein, CBC showed WBC 30.67, absolute lymphocyte 19.2, normal hemoglobin and platelet. LDH negative. 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 Lymph nodes however only low-grade, essentially nondiagnostic PET activity with SUVs of 2.3 or lower. 10/31/2021 - Chemotherapy obinutuzumab (Gazyva) 100 mg in sodium chloride 0.9 % 100 mL IVPB, 100 mg, intravenous, Once, 1 of 1 cycle obinutuzumab (Gazyva) 900 mg in sodium chloride 0.9 % 286 mL IVPB, 900 mg, intravenous, Once, 5 of 5 cycles Treatment Details Treatment goal Control Plan Name OP Acalabrutinib + Obinutuzumab, 28 Day Cycles - CLL/SLL Status Active Start Date 10/31/2021 End Date 08/28/2023 (Planned) Provider Boone Salinas MD Chemotherapy obinutuzumab (Gazyva) 100 mg in sodium chloride 0.9 % 100 mL IVPB, 100 mg, intravenous, Once, 1 of 1 cycle obinutuzumab (Gazyva) 900 mg in sodium chloride 0.9 % 286 mL IVPB, 900 mg, intravenous, Once, 5 of 5 cycles Other History: - Relevant medical/surgical/family/social histories, medications, problem list and allergies reviewed and updated with patient during the office visit. Review of Systems: Review of Systems Constitutional: Positive for diaphoresis. Negative for activity change, appetite change, chills, fatigue, fever and unexpected weight change. HENT: Negative. Eyes: Negative. Respiratory: Negative. Negative for cough, chest tightness and shortness of breath. Cardiovascular: Negative for chest pain, palpitations and leg swelling. Gastrointestinal: Negative for abdominal pain, blood in stool, constipation, diarrhea, nausea and vomiting. Endocrine: Negative. Genitourinary: Negative. Musculoskeletal: Negative. Skin: Negative. Neurological: Negative. Hematological: Negative. Psychiatric/Behavioral: Negative. Objective Visit Vitals BP 138/82 (BP Location: Right arm, Patient Position: Sitting, BP Cuff Size: Adult) Pulse 75 Temp 36.8 ???C (98.2 ???F) (Oral) Wt 97.5 kg (215 lb) SpO2 97% BMI 32.69 kg/m??? Smoking Status Former BSA 2.16 m??? ECOG Performance Status: 0 Physical Exam Vitals reviewed. Constitutional: General: She is not in acute distress. Appearance: Normal appearance. She is obese. She is not ill-appearing or diaphoretic. HENT: Head: Normocephalic and atraumatic. Nose: Nose normal. No rhinorrhea. Eyes: General: No scleral icterus. Extraocular Movements: Extraocular movements intact. Conjunctiva/sclera: Conjunctivae normal. Cardiovascular: Rate and Rhythm: Normal rate and regular rhythm. Heart sounds: Normal heart sounds. No murmur heard. Pulmonary: Effort: Pulmonary effort is normal. No respiratory distress. Breath sounds: Normal breath sounds. Abdominal: General: Bowel sounds are normal. There is no distension. Palpati (more content not included)... [facility] 05-08-2023 Note PA approved through 05/06/24. Spoke to pt and mailing prescription to her. Sonia DillardD, BCACP 05/09/23 10:02 AM [facility] [phone] [facility] 05-08-2023 Note The patient is due f or a refill on her [place] but a prior authorization renewal is needed. I have submitted the renewal via [facility] and we are waiting on a determination. Pham Hayden CPhT [facility] 05/08/23 3:29 PM [facility] 03-28-2023 Note HEMATOLOGY/ONCOLOGY PROGRESS NOTE [facility] [place] Patient Name: Diamond Guerrero Date of : 1975 Patient Care Team: Boone Salinas MD (Hematology and Oncology) Estrella Santa MD (Hematology and Oncology) Diamond Guerrero is a 47 y.o. woman who is an established patient with CLL seen today for follow-up in the Hematology and Medical Oncology clinic. Subjective Interval History: Diamond Guerrero Presents today for 4-month follow-up visit for CLL being treated with acalabrutinib. She denies any fatigue or night sweats. Her B symptoms have resolved. Denies any fever, chills, shortness of breath, nausea, vomiting, diarrhea, constipation, urinary urgency or frequency, numbness or tingling in the extremities. [facility] available as scanned documentswhich were reviewed the CBC and CMP are completely unremarkable. patient's WBC count is 6.7K, hemoglobin 13.5, platelet count 177 K. Oncology History CLL (chronic lymphocytic leukemia) (CMS/HCC) 07/2020 Initial Diagnosis CLL (chronic lymphocytic leukemia) ([facility]/HCC) Initial presentation -- Presented with left-sided neck mass, lymphocytosis Initial workup: flow cytometry was suggestive of CLL CT-a/p -- bilateral axillary, inguinal and RP lymphadenopathy Initial tx -- active surveillance, was following with Dr. Magan Francis at [facility] 07/06/2021 Pathology SPEP negative for monoclonal protein, CBC showed WBC 30.67, absolute lymphocyte 19.2, normal hemoglobin and platelet. LDH negative. 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 Lymph nodes however only low-grade, essentially nondiagnostic PET activity with SUVs of 2.3 or lower. 10/31/2021 - Chemotherapy obinutuzumab (Gazyva) 100 mg in sodium chloride 0.9 % 100 mL IVPB, 100 mg, intravenous, Once, 1 of 1 cycle obinutuzumab (Gazyva) 900 mg in sodium chloride 0.9 % 286 mL IVPB, 900 mg, intravenous, Once, 5 of 5 cycles Treatment Details Treatment goal Control Plan Name OP Acalabrutinib + Obinutuzumab, 28 Day Cycles - CLL/SLL Status Active Start Date 10/31/2021 End Date 04/25/2023 (Planned) Provider Boone Salinas MD Chemotherapy obinutuzumab (Gazyva) 100 mg in sodium chloride 0.9 % 100 mL IVPB, 100 mg, intravenous, Once, 1 of 1 cycle obinutuzumab (Gazyva) 900 mg in sodium chloride 0.9 % 286 mL IVPB, 900 mg, intravenous, Once, 5 of 5 cycles Other History: - Relevant medical/surgical/family/social histories, medications, problem list and allergies reviewed and updated with patient during the office visit. Review of Systems: Review of Systems Constitutional: Negative for activity change, appetite change, chills, diaphoresis, fatigue, fever and unexpected weight change. HENT: Negative. Eyes: Negative. Respiratory: Negative. Negative for cough and shortness of breath. Cardiovascular: Positive for leg swelling (minimal). Negative for chest pain and palpitations. Gastrointestinal: Negative for abdominal pain, constipation and diarrhea. Endocrine: Negative. Genitourinary: Negative. Musculoskeletal: Negative. Skin: Negative. Neurological: Negative. Hematological: Negative. Psychiatric/Behavioral: Negative. Objective BP 122/68 (BP Location: Right arm, Patient Position: Sitting, BP Cuff Size: Adult) Pulse 71 Temp 36.8 ???C (98.3 ???F) (Oral) Resp 16 Ht 1.727 m (5' 8 ) Wt 96.6 kg (213 lb) LMP (LMP Unknown) SpO2 100% BMI 32.39 kg/m??? ECOG Performance Status: 1 - Symptomatic but completely ambulatory Physical Exam Vitals and nursing note reviewed. Constitutional: General: She is not in acute distress. Appearance: Normal appearance. She is obese. She is not diaphoretic. Eyes: General: No scleral icterus. Conjunctiva/sclera: Conjunctivae normal. Cardiovascular: Rate and Rhythm: Normal rate and regular rhythm. Heart sounds: No murmur heard. Pulmonary: Effort: Pulmonary effort is normal. Breath sounds: No wheezing or rhonchi. Abdominal: General: There is no distension. Palpations: Abdomen is soft. There is no mass. Tenderness: There is no abdominal tenderness. There is no guarding or rebound. Comments: No palpable splenomegaly Musculoskeletal: Cervical back: Neck supple. Right lower leg: No edema. Left lower leg: No edema. Lymphadenopathy: Cervical: No cervical adenopathy. Skin: General: Skin is warm and dry. Coloration: Skin is not jaundiced. Findings: No rash. Neurological: General: No focal deficit present. Mental Status: She is alert and oriented to person, place, and time. Mental status is at baseline. (more content not included)... [facility] 02-21-2023 Evaluation note Encounter Date Diagnosis Assessment Notes Feb, Screening mammogram, encounter for (ICD-10 - Z12.31) Feb, Well adult exam (ICD-10 - Z00.00) 47-year-old female who is doing very well with her chronic medical conditions. She has no concerns today and no significant concerning findings on physical exam. She does have some lower extremity edema but she does wear compression stockings and feels the swelling is doing adequate with the stockings. She is to call and return if she feels it is worsening. Obviously she is to continue with her CLL treatment through oncology. Patient has had recent lab work done through her oncologist and it was reviewed today and all is within normal limits. She is due for lipid panel and this was ordered for today and she will get this done with her next labs done by oncology and will be contacted with results once reviewed. Patient is due for mammogram and she did have an abnormal left breast ultrasound last year so this was reordered as well. Patient is due for colon cancer screening and she opts for colonoscopy so she was referred for this. Feb, Screening for colon cancer (ICD-10 - Z12.11) Feb, Encounter for screening for cardiovascular disorders (ICD-10 - Z13.6) Feb, CLL (chronic lymphocytic leukemia) (ICD-10 - C91.10) Feb, Tree nut allergy (ICD-10 - Z91.018) [facility] Other 04-19-2023 Note Attestation signed by Boone Salinas MD at 11/29/2022 1:25 PM I personally saw and examined the patient on the same date of service as resident/fellow SD. I discussed the findings and therapeutic plan with the resident/fellow SD. I agree with the documentation, except for any edits/updates below. Teaching Physician's Revisions: HEMATOLOGY/ONCOLOGY PROGRESS NOTE [facility] Patient Name: Diamond Guerrero Date of : 1975 Patient Care Team: Boone Salinas MD (Hematology and Oncology) Estrella Santa MD (Hematology and Oncology) Diamond Guerrero is a 47 y.o. woman who is an established patient with CLL seen today for follow-up in the Hematology and Medical Oncology clinic. Subjective Interval History: Diamond Guerrero Presents today for 4-month follow-up visit for CLL being treated with acalabrutinib. She denies any fatigue or night sweats. Her B symptoms have resolved. Denies any fever, chills, shortness of breath, nausea, vomiting, diarrhea, constipation, urinary urgency or frequency, numbness or tingling in the extremities. [facility] available as scanned documentswhich were reviewed the CBC and CMP are completely unremarkable. patient's WBC count is 6.7K, hemoglobin 13.5, platelet count 177 K. Oncology History CLL (chronic lymphocytic leukemia) ([facility]) 07/2020 Initial Diagnosis CLL (chronic lymphocytic leukemia) (CMS/HCC) Initial presentation -- Presented with left-sided neck mass, lymphocytosis Initial workup: flow cytometry was suggestive of CLL CT-a/p -- bilateral axillary, inguinal and RP lymphadenopathy Initial tx -- active surveillance, was following with Dr. Magan Francis at [facility] 07/06/2021 Pathology SPEP negative for monoclonal protein, CBC showed WBC 30.67, absolute lymphocyte 19.2, normal hemoglobin and platelet. LDH negative. 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 Lymph nodes however only low-grade, essentially nondiagnostic PET activity with SUVs of 2.3 or lower. 10/31/2021 - Chemotherapy obinutuzumab (Gazyva) 100 mg in sodium chloride 0.9 % 100 mL IVPB, 100 mg, intravenous, Once, 1 of 1 cycle obinutuzumab (Gazyva) 900 mg in sodium chloride 0.9 % 286 mL IVPB, 900 mg, intravenous, Once, 5 of 5 cycles Treatment Details Treatment goal Control Plan Name OP Acalabrutinib + Obinutuzumab, 28 Day Cycles - CLL/SLL Status Active Start Date 10/31/2021 End Date 01/09/2023 (Planned) Provider Boone Salinas MD Chemotherapy obinutuzumab (Gazyva) 100 mg in sodium chloride 0.9 % 100 mL IVPB, 100 mg, intravenous, Once, 1 of 1 cycle obinutuzumab (Gazyva) 900 mg in sodium chloride 0.9 % 286 mL IVPB, 900 mg, intravenous, Once, 5 of 5 cycles Other History: - Relevant medical/surgical/family/social histories, medications, problem list and allergies reviewed and updated with patient during the office visit. Review of Systems: Review of Systems Constitutional: Negative for activity change, appetite change, chills, diaphoresis, fatigue, fever and unexpected weight change. HENT: Negative. Eyes: Negative. Respiratory: Negative. Negative for cough and shortness of breath. Cardiovascular: Positive for leg swelling (minimal). Negative for chest pain and palpitations. Gastrointestinal: Negative for abdominal pain, constipation and diarrhea. Endocrine: Negative. Genitourinary: Negative. Musculoskeletal: Negative. Skin: Negative. Neurological: Negative. Hematological: Negative. Psychiatric/Behavioral: Negative. Objective BP 114/59 (BP Location: Right arm, Patient Position: Sitting, BP Cuff Size: Large adult) Pulse 76 Ht 1.727 m (5' 8 ) Wt 98.4 kg (217 lb) LMP (LMP Unknown) SpO2 100% BMI 32.99 kg/m??? ECOG Performance Status: 1 - Symptomatic but completely ambulatory Physical Exam Vitals and nursing note reviewed. Constitutional: General: She is not in acute distress. Appearance: Normal appearance. She is obese. She is not diaphoretic. Eyes: General: No scleral icterus. Conjunctiva/sclera: Conjunctivae normal. Cardiovascular: Rate and Rhythm: Normal rate and regular rhythm. Heart sounds: No murmur heard. Pulmonary: Effort: Pulmonary effort is normal. Breath sounds: No wheezing or rhonchi. Abdominal: General: There is no distension. Palpations: Abdomen is soft. There is no mass. Tenderness: There is no abdominal tenderness. There is no guardi (more content not included)...[facility]02-[facility]20[facility] Evaluation note* Encounter Date Diagnosis Assessment Notes Treatment Notes Treatment Clinical Notes Sep, Left breast lump (ICD-10 - N63.20) Sep, Screening mammogram, encounter for (ICD-10 - Z12.31) [facility] Other 11-08-2021 Evaluation note* Encounter Date Diagnosis Assessment Notes Treatment Notes Treatment Clinical Notes Jun, Tree nut allergy (ICD-10 - Z91.018) Based on patient's history of having sudden allergic reactions to ingesting tree nuts she will be sent for allergy testing by an billing representative. The foods that she is stating triggers the allergic reaction is a little mixed and that she talks about tree nuts as well as peanuts and then a carrot cake that supposedly did not have any nuts in it so it is unclear exactly what is causing her allergic reaction, but either way skin testing will help to identify underlying allergy issues. Jun, Low back pain with radiation, right (ICD-10 - M54.41) Patient has had a handicap placard for the past 9 years given to her by her orthopedic surgeon due to congenital spinal stenosis and chronic low back pain. It is expirirng and she no longer sees the surgeon so it will be refilled here. 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 Medical History obesity Medical History nasal allergies Medical History spinal stenosis, congenital Medical History overweight Medical History lumbar bilateral radiculopathy Surgical History bilateral fracture in L ankle 2 012 Surgical History diskectomy infusion in cervical vertebrae Surgical History total hysterectomy, ovary out 2 014 Surgical History epidural cyst removed from back 2013 Surgical History Hardware taken from out of L ankle because one of the pens busted 2014 Surgical History cervical fusion 05/2020 Hospitalization History See above [facility] Other Hospital Discharge instructions No data available for this [facility] No data available for this section [facility] Reason for Referral Reason colorectal screening Diagnosis 1 Screening for colon cancer (Z12.11) Referral Organization [facility] Maurice Gallardo Referring Provider First Name Bernice Referring Provider Last Name Palmira Referring Provider Specialty Family Prac yusuf Referred Organization [facility] Gastroenterolo gy Referred Address [address] [facility] [address] ,[place], [place],[address] Referred Provider Specialty Gastroentero logy Referral Priority Routine Reason * FU 06/20 Patient feels she is allergic to tree nuts as she had an issue after eating a pecan, assess for allergy testing Diagnosis 1 Tree nut allergy (Z9 1.018) Referral Organization [facility] Maurice Gallardo Referring Provider First Name Bernice Referring Provider Last Name Palmira Referring Provider Specialty Family Prac yusuf Referred Organization [facility] Referred Provider Harry King Referred Address ,[place], [place],[address] Referred Provider Specialty Allergy/Immu nology Referral Priority Routine General Notes Montserrat Noyola 03/2021 01:19:56 PM >referral received and sent p2p Summary Purpose Family History No Family History Records Found Relationship Condition Age at Onset Recorded Date/T annita Not Specified Malignant neoplasm of thyroid gland Unkn own father Malignant neoplasm of urinary bladder Unk nown grandparent Lymphoma Unknown grandparent Malignant neoplasm of breast Unknown Not Specified Diabetes mellitus Unknown Not Specified Hypertension Unknown Advance Directives No Advanced Directives Records Found Advance Directive Response Recorded Date/ Time Advance Directives No April 7:12am Chief Complaint and Reason for Visit Chief Complaint Z12.31 Chief Complaint Z12.31 R92.8 Additional Source Comments REASON FOR VISIT (unrecogniz ed section and content) REFERRAL UPDATEBreast ultras ound resultsMAIL PPWawvmammogran and ultra soundCancer care at [facility] Care Team (unrecognized sect ion and content) Team Status: Active Member Role Status Dates Bernice Chavis , DO Primary Care Provider Active Team Status: Inactive Member Role Status Dates Bernice Chavis , DO Primary Care Provider, Attending Provider Active INFORMATION SOURCE (unrecogn ized section and content) DATE CREATED AUTHOR 02/22/2022 [facility] DATE CREATED AUTHOR AUTHOR'S ORGANIZ ATION 03/28/2022 [facility] DATE CREATED AUTHOR AUTHOR'S ORGANIZ ATION 10/15/2022 [facility] DATE CREATED AUTHOR AUTHOR'S ORGANIZ ATION 06/09/2023 [facility] DATE CREATED AUTHOR AUTHOR'S ORGANIZ ATION 10/27/2023 [facility] Goals (unrecognized section and content) Goals may be documented in a n alternate section FOR RECORDS PERTAINING TO PATIENTS WHO ARE OR HAVE BEEN ENROLLED IN A CHEMICAL DEPENDENCY/SUBSTANCEABUSE PROGRAM, SOME INFORMATION MAY BE OMITTED. This clinical summary was aggregated from multiple sources. Caution should be exercised in using it in the provision of clinical care. This summary normalizes information from multiple sources, and as a consequence, information in this document may materially change the coding, format and clinical context of patient data. In addition, data may be omitted in some cases. CLINICAL DECISIONS SHOULD BE BASED ON THE PRIMARY CLINICAL RECORDS. [facility]. provides no warranty or guarantee of the accuracy or completeness of information in this document.
[2024-01-29 09:09] LABS: Basophils Percent Auto 0.7 % (0.2-2.0); Eosinophils Absolute Auto 0.1 10^3/uL (0.0-0.7); Hematocrit 44.7 % (36.0-48.0); Hemoglobin 14.9 g/dL (12.0-16.0); Immature Granulocytes Abs Auto 0.01 10^3/uL (0.00-0.03); Immature Granulocytes Pct Auto 0.2 % (0.0-0.5); Lymphocytes Absolute Auto 1.3 10^3/uL (1.2-3.8); Lymphocytes Percent Auto 21.2 % (20.5-60.0); Mean Corpuscular HGB Conc 33.3 g/dL (29.9-35.2); Mean Corpuscular Hemoglobin 30.1 pg (26.7-34.0); Mean Corpuscular Volume 90.3 fL (81.0-99.0); Mean Platelet Volume 11.5 fL (9.5-13.5); Monocytes Absolute Auto 0.6 10^3/uL (0.3-0.8); Monocytes Percent Auto 9.8 % (1.7-12.0); Neutrophils Percent Auto 66.1 % (43.0-75.0); Platelet Count 197 10^3/uL (150-450); Red Blood Count 4.95 10^6/uL (4.20-5.40); Red Cell Distribution Width 12.1 % (11.0-15.0)
[2024-01-29 09:21] LABS: Alanine Aminotransferase 25 U/L (14-59); Albumin Level 3.7 g/dL (3.4-5.0); Alkaline Phosphatase 87 U/L (46-116); Anion Gap 13.5; Aspartate Amino Transferase 15 U/L (15-37); BUN Creatinine Ratio 18.9; Bilirubin Total 0.5 mg/dL (0.2-1.0); Calcium 8.7 mg/dL (8.5-10.1); Carbon Dioxide 25.6 mmol/L (21.0-32.0); Chloride 107 mmol/L (98-107); Estimated GFR (African America >60 (>=60); Estimated GFR (Non-African Ame >60 (>=60); Globulin 3.7 g/dL; Glucose 106 mg/dL (74-106); Lactate Dehydrogenase 167 U/L (81-234); Potassium 4.1 mmol/L (3.5-5.1); Sodium 142 mmol/L (136-145); Total Protein 7.4 g/dL (6.4-8.2); Uric Acid 2.9 mg/dL (2.6-6.0)
== END 2024-02-01 10:47 | disposition home or self-care (01) ==
LOC: HEMC 08:00
PROVIDERS: Visit Provider Internal Medicine Hematology & Oncology
DX: C91.10 Chronic lymphocytic leukemia of B-cell type not having achieved remission (principal)
CPT/HCPCS: 36415; 80053; 83615; 84550; 85025; 88184; 88185; 99999; G0463

== ENCOUNTER 2024-05-27 12:48 | Outpatient (OUT) | payer MEDICAID, SELFPAY ==
[2024-05-27 12:59] LABS: Basophils Absolute Auto 0.1 10^3/uL (0.0-0.1); Basophils Percent Auto 0.7 % (0.2-2.0); Eosinophils Absolute Auto 0.1 10^3/uL (0.0-0.7); Eosinophils Percent Auto 1.4 % (0.9-7.0); Hematocrit 43.3 % (36.0-48.0); Hemoglobin 14.9 g/dL (12.0-16.0); Immature Granulocytes Abs Auto 0.02 10^3/uL (0.00-0.03); Immature Granulocytes Pct Auto 0.3 % (0.0-0.5); Lymphocytes Absolute Auto 1.5 10^3/uL (1.2-3.8); Lymphocytes Percent Auto 20.8 % (20.5-60.0); Mean Corpuscular HGB Conc 34.4 g/dL (29.9-35.2); Mean Corpuscular Hemoglobin 30.9 pg (26.7-34.0); Mean Corpuscular Volume 89.8 fL (81.0-99.0); Mean Platelet Volume 11.2 fL (9.5-13.5); Monocytes Absolute Auto 0.7 10^3/uL (0.3-0.8); Monocytes Percent Auto 9.8 % (1.7-12.0); Neutrophils Absolute Auto 4.7 10^3/uL (1.4-6.5); Platelet Count 178 10^3/uL (150-450); Red Blood Count 4.82 10^6/uL (4.20-5.40); Red Cell Distribution Width 12.1 % (11.0-15.0)
[2024-05-27 13:57] LABS: Alanine Aminotransferase 25 U/L (14-59); Albumin Globulin Ratio 0.9; Albumin Level 3.6 g/dL (3.4-5.0); Alkaline Phosphatase 94 U/L (46-116); Anion Gap 14.8; Aspartate Amino Transferase 14 U/L (15-37); BUN Creatinine Ratio 10.3; Bilirubin Total 0.7 mg/dL (0.2-1.0); Calcium 9.3 mg/dL (8.5-10.1); Carbon Dioxide 24.5 mmol/L (21.0-32.0); Chloride 107 mmol/L (98-107); Estimated GFR (African America >60 (>=60 mL/min/1.73m^2); Estimated GFR (Non-African Ame >60 (>=60 mL/min/1.73m^2); Globulin 3.8 g/dL; Glucose 98 mg/dL (74-106); Lactate Dehydrogenase 174 U/L (81-234); Potassium 4.3 mmol/L (3.5-5.1); Sodium 142 mmol/L (136-145); Total Protein 7.4 g/dL (6.4-8.2); Uric Acid 3.4 mg/dL (2.6-6.0)
== END 2024-05-27 12:49 | disposition home or self-care (01) ==
LOC: LAB 12:48
PROVIDERS: Visit Provider Internal Medicine Hematology & Oncology
DX: C91.10 Chronic lymphocytic leukemia of B-cell type not having achieved remission (principal)
CPT/HCPCS: 36415; 80053; 83615; 84550; 85025

== ENCOUNTER 2024-06-03 07:33 | Outpatient (RCR) | payer MEDICAID, SELFPAY | END 2024-06-05 23:59 | disposition home or self-care (01) | LOC: HEMC 07:33 | PROVIDERS: Visit Provider Internal Medicine Hematology & Oncology | DX: C91.10 Chronic lymphocytic leukemia of B-cell type not having achieved remission (principal); Z90.710 Acquired absence of both cervix and uterus; Z98.1 Arthrodesis status; Z90.721 Acquired absence of ovaries, unilateral | CPT/HCPCS: G0463 ==

== ENCOUNTER 2024-10-08 14:23 | Outpatient (OUT) | payer MEDICAID, SELFPAY ==
[2024-10-08 14:34] LABS: Basophils Absolute Auto 0.1 10^3/uL (0.0-0.1); Basophils Percent Auto 0.7 % (0.2-2.0); Eosinophils Absolute Auto 0.1 10^3/uL (0.0-0.7); Hematocrit 44.4 % (36.0-48.0); Hemoglobin 14.9 g/dL (12.0-16.0); Immature Granulocytes Abs Auto 0.03 10^3/uL (0.00-0.03); Immature Granulocytes Pct Auto 0.4 % (0.0-0.5); Lymphocytes Absolute Auto 1.7 10^3/uL (1.2-3.8); Lymphocytes Percent Auto 23.6 % (20.5-60.0); Mean Corpuscular HGB Conc 33.6 g/dL (29.9-35.2); Mean Corpuscular Hemoglobin 30.3 pg (26.7-34.0); Mean Corpuscular Volume 90.4 fL (81.0-99.0); Mean Platelet Volume 11.5 fL (9.5-13.5); Monocytes Absolute Auto 0.6 10^3/uL (0.3-0.8); Monocytes Percent Auto 8.5 % (1.7-12.0); Neutrophils Absolute Auto 4.7 10^3/uL (1.4-6.5); Neutrophils Percent Auto 65.8 % (43.0-75.0); Platelet Count 178 10^3/uL (150-450); Red Blood Count 4.91 10^6/uL (4.20-5.40); Red Cell Distribution Width 12.3 % (11.0-15.0); White Blood Count 7.1 10^3/uL (4.0-11.0)
[2024-10-08 14:48] LABS: Alanine Aminotransferase 24 U/L (14-59); Albumin Globulin Ratio 0.9; Albumin Level 3.4 g/dL (3.4-5.0); Alkaline Phosphatase 85 U/L (46-116); Anion Gap 11.8; Aspartate Amino Transferase 21 U/L (15-37); BUN Creatinine Ratio 13.8; Bilirubin Total 0.5 mg/dL (0.2-1.0); Calcium 8.8 mg/dL (8.5-10.1); Carbon Dioxide 24.5 mmol/L (21.0-32.0); Chloride 108 mmol/L (98-107); Estimated GFR (African America >60 (>=60 mL/min/1.73m^2); Estimated GFR (Non-African Ame >60 (>=60 mL/min/1.73m^2); Globulin 3.8 g/dL; Glucose 97 mg/dL (74-106); Lactate Dehydrogenase 230 U/L (81-234); Potassium 4.3 mmol/L (3.5-5.1); Sodium 140 mmol/L (136-145); Total Protein 7.2 g/dL (6.4-8.2)
== END 2024-10-08 14:24 | disposition home or self-care (01) ==
LOC: LAB 14:23
PROVIDERS: Visit Provider Internal Medicine Hematology & Oncology
DX: C91.10 Chronic lymphocytic leukemia of B-cell type not having achieved remission (principal)
CPT/HCPCS: 36415; 80053; 83615; 85025

== ENCOUNTER 2024-10-14 07:37 | Outpatient (RCR) | payer MEDICAID, SELFPAY ==
--- OUTSIDE RECORDS SUMMARY | 2024-10-14 07:49 | XMS_ITS | CCD ---
Author Organization [facility] Care Team Providers Care Carpenter Supervisor Name Role Phone Bernice Chavis Unavailable BERNICE [...] MOHAMMAD Admitting Unavailable SALINAS, MOHAMMAD Attending Unavailable PALMIRA BERNICE Primary Care Unavailable SALINAS, MOHAMMAD Admitting Unavailable SALINAS, MOHAMMAD Consulting Unavailable SALINAS, MOHAMMAD Attending Unavailable PALMIRA BERNICE Primary Care Unavailable SALINAS, MOHAMMAD Attending [...] Care Unavailable MISC, DOCTOR Consulting Unavailable MISC, DR FERNANDO Attending Unavailable MISC, DR FERNANDO Admitting Unavailable PAY ., DR MELARA Admitting Unavailable PALMIRA, BERNICE Primary Care Unavailable PAY ., DR MELARA Attending Unavailable FLORES ., DEEPIKA Consulting Unavailable RAMESH, LAKHWINDER Consulting Unavailable SALINAS, MOHAMMAD Admitting Unavailable SALINAS, MOHAMMAD Attending Unavailable [facility] Primary Care Unavailable SALINAS, MOHAMMAD Admitting Unavailable SALINAS, MOHAMMAD Consulting Unavailable SALINAS, MOHAMMAD Attending Unavailable PALMIRA BERNICE Primary Care Unavailable SALINAS, MOHAMMAD Admitting Unavailable SALINAS, MOHAMMAD Consulting Unavailable SALINAS, MOHAMMAD Attending Unavailable [facility] BERNICE Primary Care Unavailable SALINAS, MOHAMMAD Admitting Unavailable SALINAS, MOHAMMAD Consulting Unavailable SALINAS, MOHAMMAD Attending Unavailable [facility] BERNICE Primary Care Unavailable PAY ., DR MELARA Consulting Unavailable PAY ., DR MELARA Attending Unavailable [facility] BERNICE Primary Care Unavailable PAY ., DR MELARA Admitting Unavailable PalmiraBernice Unavailable Vicente Tam Unavailable Palmira, DO Bernice N Primary Care Provider [phone] Palmira, DO Weiss N Attending Provider [phone] Palmira, Bernice N Primary Care Unavailable Jamarcus Esposito Attending Unavailable Jamarcus Esposito Admitting Unavailable Palmira DOBernice Primary Care Provider Jamarcus Esposito APRN Attending Provider ESTRELLA SANTA Attending Unavailable Allergies Allergy Classification Reported Allergen(s) Allergy Type Date of Onset Reaction(s) Facility (16 sources) Chlorhexidine; Translations: [Chlorhexidine] Drug Allergy 12-11-19 14 burning, Unknown Reaction, Unknown Reaction, burning [facility] Other (9 sources) Codeine Drug Allergy itchy [facility] Other (13 sources) Latex; Translations: [LATEX] Propensity to adverse reactions 12-24-19 13 itchy, rash itching [facility] Other (11 sources) pollen, dust Propensity to adverse reactions 02-22-20 23 [facility] (1 source) Chlorhexidine Drug Allergy 10-10-19 15 [facility] (8 sources) Codeine; Translations: [CODEINE] Drug Allergy 04-07-20 12 Itching, Itching, itchy [facility] (2 sources) Etoposide; Translations: [CHLORHEXIDINE GLUCONATE] Drug Allergy 04-17-20 13 [facility] (2 sources) Latex Drug allergy (disorder) 11-14-19 13 [facility] (1 source) OPIODS; Translations: [OPIODS] Propensity to adverse reactions (disorder) 05-11-20 20 [facility] (1 source) almond allergenic extract; Translations: [ALMOND] Drug Allergy 11-23-19 23 [facility] (1 source) Grass pollen; Translations: [GRASS POLLEN] Propensity to adverse reactions to drug (disorder) 05-10-20 22 [facility] (1 source) house dust allergenic extract; Translations: [HOUSE DUST] Drug Allergy 05-10-20 22 [facility] (1 source) HYDROmorphone; Translations: [HYDROMORPHONE HCL] Drug Allergy 12-17-19 14 [facility] (1 source) Tree and shrub pollen; Translations: [TREE AND SHRUB POLLEN] Propensity to adverse reactions to drug (disorder) 10 [facility] Medications Current Medications Medication Drug Class(es) Dates Sig (Normalized) Sig (Original) acalabrutinib 100 MG Oral Tablet [Calquence] (4 sources) take 1 tablet by mouth every twelve hours Calquence 100 MG 1 tablet Orally every [address] Red, [facility], Chronic lymphocytic lukemia. Active Acalabrutinib Maleate (2 sources) Start: 12-17-2023 take 1 tablet by mouth every twelve hours Acalabrutinib Maleate 100 mg tablet Active 1 TAB PO Every 12 hours December 16, 2023 11:00pm FreeTextSi tablet Orally every 12 hrs; Note: Source Status: TakingDr. Red, [facility], Chronic lymphocytic lukemia.; Provider: Palmira Weiss ( ) Start: 12-17-2023 take 1 tablet by lindsay th every twelve hours Acalabrutinib Maleate Active 1 TAB PO Every 12 hours December 17, 2023 12:00am FreeTextSi tablet Orally every 12 hrs; Note: Source Status: TakingDr. Red, [facility], Chronic lymphocytic lukemia.; Provider: Palmira Weiss ( ) cetirizine hydrochloride 10 mg oral tablet (15 sources) Histamine-1 Receptor Antagonist Start: 04-26-2016 take 1 tablet by mouth once daily Cetirizine 10 mg Tablet Active 10 MG PO Daily July 19, 2020 12:00am cholecalciferol 0.05 mg oral capsule (10 sources) Vitamin D Start: 07-19-2020 take 1 capsule by mouth once daily Cholecalciferol (Vitamin D3) (Vitamin D3) 50 mcg (2,000 unit) Capsule Active 50 MCG PO Daily July 19, 2020 12:00am take 1 tablet by mouth once amos y Vitamin D3 50 MCG (2000 UT) 1 tablet Orally Once a day Active diazePAM 5 mg oral tablet (1 source) Benzodiazepine Start: 08-22-2017 take 5 mg by mouth once daily as needed for muscle spasms Valium 5 mg, Oral, Daily, PRN Spasm, Refills(s) 0 Start Date: 08/22/17 Status: Ordered Handicap placards as directed (5 sources) Start: 06-13-2021 Handicap placa rds as directed 1 as directed as directed Jun, Active ibuprofen 800 mg oral tablet (15 sources) Nonsteroidal Anti-inflammatory Drug Start: 07-19-2020 take 1 tablet by mouth every eight hours as needed for pain Ibuprofen 800 mg Tablet Active 800 MG PO Q8H as needed for Pain July 19, 2020 12:00am Start: 08-22-2017 take 800 mg by mouth [...] 08/22/17 Status: Ordered Multivitamin (Multiple Vitamins) Tablet (5 sources) Start: 0 take 1 tablet by mouth once daily Multivitamin (Multiple Vitamins) Tablet Active 1 TAB PO Daily July 19, 2020 12:00am Start: 07-19-2020 take 1 tablet by lindsay th once daily Multivitamin (Multiple Vitamins) Tablet Active 1 TAB PO Daily July 19, 2020 1:00am Multivitamin Adult - (5 sources) Multivitamin Tomy lt - as directed Orally Active Completed/Discontinued Medications Medication Drug Class(es) Dates Sig (Normalized) Sig (Original) fluticasone propionate 0.05 mg/actuat metered dose nasal spray (6 sources) Corticosteroid Start: 07-19-2020 End: 02-22-2024 Fluticasone Propionate 50 mcg/actuation [place],Suspension Discontinued 1 SPRAY INTRANASAL Daily July 19, 2020 12:00am February 22, 2024 10:08am Start: 08-22-2017 Flonase 2 spra y(s), Nasal, BID, Refill(s) 0 Start Date: 08/22/17 Status: Ordered predniSONE 20 mg oral tablet (2 sources) Start: 12-19-2023 End: 02-22-2024 take 2 tablets by mouth once daily Prednisone 20 mg tablet Discontinued 40 MG PO Daily 16 02December 18, 2023 11:00pm February 22, 2024 10:08am Start: 12-19-2023 End: 02-22-2024 take 40 mg by mouth once daily Prednisone Discontinued 40 MG PO Daily 16 02December 19, 2023 12:00am February 22, 2024 11:08am Problems Active Problems Problem Classification Problem Date Documented Date Episodic/Chronic Allergic reactions (11 sources) Allergy to tree nut; Translations: [Allergy to other foods] Onset: 06-13-2021 Resolved: 06-13-2021 Episodic Anxiety disorders (3 sources) Posttraumatic stress disorder; Translations: [Post-traumatic stress disorder, unspecified] 02-22-2024 Chronic Calculus of urinary tract (1 source) Kidney stone 08-22-2017 Episodic Diseases of white blood cells (5 sources) Lymphocytosis; Translations: [Lymphocytosis (symptomatic)] 07-19-2020 Chronic Comment on above: Problem List clean-u p per request of Phys. EHR Cmte Diverticulosis and diverticulitis (1 source) Diverticulosis of intestine, part unspecified, without perforation or abscess without bleeding; Translations: [DVRTCLOS PRT UNS NO PERF/ABSC NO BL] Onset: 03-17-2022 Chronic Leukemias (20 sources) Chronic lymphoid leukemia, disease; Translations: [Chronic lymphocytic leukemia of B-cell type not having achieved remission] Onset: 03-17-2022 Chronic Malaise and fatigue (2 sources) Chronic fatigue, unspecified; Translations: [Chronic fatigue, unspecified] Onset: 08-02-2022 Chronic Osteoarthritis (1 source) Osteoarthritis 08-22-2017 Chronic Other connective tissue disease (1 source) Bursitis of left shoulder; Translations: [Other specified disorders of bursae and tendons in shoulder region] 12-19-2023 Episodic Other nervous system disorders (10 sources) Chronic pain syndrome; Translations: [Chronic pain syndrome] 08-22-2017 Chronic Other nervous system disorders (1 source) Carpal tunnel syndrome 08-22-2017 Chronic Other non-traumatic joint disorders (1 source) Other specified joint disorders, left shoulder; Translations: [Other specified disorders of joint, shoulder region] 12-19-2023 Episodic Other screening for suspected conditions (not mental disorders or infectious disease) (10 sources) Encounter for screening mammogram for malignant neoplasm of breast; Translations: [Patient encounter status] Onset: 09-27-2021 Resolved: 09-27-2021 Episodic Other upper respiratory disease (9 sources) Allergic rhinitis; Translations: [Allergic rhinitis, unspecified] Chronic Spondylosis; intervertebral disc disorders; other back problems (15 sources) Sciatica; Translations: [Lumbago with sciatica, right side] Onset: 06-13-2021 Resolved: 06-13-2021 Episodic Past or Other Problems Problem Classification Problem Date Documented Da te Episodic/Chronic Nonmalignant breast conditions (1 source) Unspecified lump in the left breast, unspecified quadrant Onset: 09-27-2021 Resolved: 09-27-2021 Episodic Other aftercare (1 source) Other fpc (current) drug therapy; Translations: [OTH EXPLOSIVE ORDNANCE HANDLER CURRENT DRUG THERAPY] Onset: 03-17-2022 Episodic Other gastrointestinal disorders (4 sources) Diarrhea, unspecified; Translations: [DIARRHEA UNSPECIFIED] Onset: 03-16-2022 Episodic Unclassified (1 source) Well adult; Translations: [Full-term infant] 02-22-2024 Results Test Name Value Interpretation Reference Range Facility [facility] [id number] Kristan Guerrero Jluis 1975 F Date Provider Department Center 06/24/2024 [facility], [facility] Spe Pha Comprehensiv Family History Problem Relation Age of Onset Diabetes Mother Hypertension Mother Cancer Father Cancer Maternal Grandfather Stroke Maternal Grandfather Cancer Paternal Grandmother Family Status - Relation Status Age at Mother Father Maternal Grandfather Paternal Grandmother Reason for Visit and Comments: Specialty Pharmacy Note: Calquence [Other] Normal [facility] MM screening mammo BI w/CADo n 06-12-2024 MM screening mammo BI w/CAD [facility] [place] [address] Mammography Report Signed Patient: Diamond Guerrero MR#: [id number] : 1975 Acct:[id number] Age/Sex: 48 / F ADM Date: 06/12/24 Loc: [place] Room: Type: [facility] Attending Dr: Jamarcus Esposito CHUCKING AND SAWING MACHINE OPERATOR Copies to: Bernice Chavis, DO Jamarcus Esposito APRN Ordering Provider: Jamarcus Esposito APRN Date of Service: 06/12/24 MM/MM screening mammo BI w/CAD: Z12.31 - Encounter for screening mammogram for malignant ... BILATERAL Screening Full Field digital mammogram with 3-D imaging. Full field digital CC and MLO imaging performed. CAD utilized. COMPARISON: 05/22/2023 HISTORY: Annual screening BREAST COMPOSITION: The breast parenchyma is heterogeneously dense. BREAST CALCIFICATIONS: Benign calcifications present. VASCULAR CALCIFICATIONS: None ARCHITECTURAL DISTORTION: None BREAST NODULE: Benign breast nodularity AXILLARY LYMPH NODES: Normal POSTSURGICAL CHANGES: None MM/MM screening mammo BI w/CAD IMPRESSION: No mammographic evidence of malignancy. Routine follow-up recommended in one year. RESULT CODE: 2 Benign Findings(s) DENSITY CODE: 3 (approximately 51-75% glandular) FOLLOW UP: 1YR THE FALSE-NEGATIVE RATE OF MAMMOGRAPHY IS APPROXIMATELY 10%. IMAGING OF A PALPABLE ABNORMALITY MUST BE BASED ON CLINICAL GROUNDS. PATIENT WAS ENTERED INTO A REMINDER SYSTEM WITH A TARGET DUE DATE FOR THE NEXT MAMMOGRAM. Impression dictated by: Saritha Avila M.D.06/12/2024 3:40 PM Dictation Location: [facility] Transcribed By: [facility] 06/12/24 1540 Dictated By: Saritha Avila DO 06/12/24 1533 Signed By: 06/12/24 1540 Normal [facility] Mammography reportOrdered By : Saritha Avila on 06-12-2024 Diagnostic imaging study [facility] [address] [place] [id number] Mammography Report Signed Patient: Diamond Guerrero MR#: [id number] : 1975 Acct:[id number] Age/Sex: 48 / F ADM Date: 4 Loc: NC Room: Type: [facility] Attending Dr: Jamarcus Esposito CHUCKING AND SAWING MACHINE OPERATOR Copies to: DO Jamarcus Robertson APRN~ Ordering Provider: Jamarcus Esposito APRN Date of Service: 06/12/24 MM/MM screening mammo BI w/CAD: Z12.31 - Encounter for screening mammogram for malignant ... BILATERAL Screening Full Field digital mammogram with 3-D imaging. Full field digital CC and MLO imaging performed. CAD utilized. COMPARISON: 05/22/2023 HISTORY: Annual screening BREAST COMPOSITION: The breast parenchyma is heterogeneously dense. BREAST CALCIFICATIONS: Benign calcifications present. VASCULAR CALCIFICATIONS: None ARCHITECTURAL DISTORTION: None BREAST NODULE: Benign breast nodularity AXILLARY LYMPH NODES: Normal POSTSURGICAL CHANGES: None MM/MM screening mammo BI w/CAD IMPRESSION: No mammographic evidence of malignancy. Routine follow-up recommended in one year. RESULT CODE: 2 Benign Findings(s) DENSITY CODE: 3 (approximately 51-75% glandular) FOLLOW UP: 1YR THE FALSE-NEGATIVE RATE OF MAMMOGRAPHY IS APPROXIMATELY 10%. IMAGING OF A PALPABLE ABNORMALITY MUST BE BASED ON CLINICAL GROUNDS. PATIENT WAS ENTERED INTO A REMINDER SYSTEM WITH A TARGET DUE DATE FOR THE NEXT MAMMOGRAM. Impression dictated by: Saritha Avila M.D.06/12/2024 3:40 PM Dictation Location: [facility] Transcribed By: SHEILA 06/12/24 1540 Dictated By: Saritha Avila DO 06/12/24 1533 Signed By: 06/12/24 1540 [facility] Basophils Auto (Bld) [#/Vol] on 05-27-2024 Basophils (Bld) [#/Vol] Automated basophil count 0.0-0.1 [facility] Basophils/100 WBC Auto (Bld) on 05-27-2024 Basophils/100 WBC (Bld) Automated basophil % 0.2-2.0 [facility] Eosinophils/100 WBC Auto (Bl d)on 05-27-2024 Eosinophils/100 WBC (Bld) Automated eosinophil % 0.9-7.0 [facility] Erythrocyte distribution wid th Auto (RBC) [Ratio]on 05-27-2024 Erythrocyte distribution width (RBC) [Ratio] Erythrocyte distribution width [Ratio] by Automated count 11.0-15.0 [facility] Estimated glomerular filtrat ion rate (GFR) non- Americanon 05-27-2024 GFR/1.73 sq M.predicted among non-blacks MDRD (S/P/Bld) [Vol rate/Area] Estimated glomerular filtration rate (GFR) non- >=60 mL/min/1.73m 2 [facility] Globulin Calc (S) [Mass/Vol] on 05-27-2024 Globulin (S) [Mass/Vol] Serum globulin measurement by calculation (mass/volume) [facility] Hematocrit Auto (Bld) [Volum e fraction]on 05-27-2024 Hematocrit (Bld) [Volume fraction] Hematocrit [Volume Fraction] of Blood by Automated count 36.0-48.0 [facility] Hemoglobin [Mass/volume] in Bloodon 05-27-2024 Hemoglobin (Bld) [Mass/Vol] Hemoglobin [Mass/volume] in Blood 12.0-16.0 [facility] Laboratory - Chemistry and C hemistry - challengeon 05-27-2024 Albumin [Mass/Vol] 3.6 g/dL 3.4-5.0 [facility] ALP [Catalytic activity/Vol] 94 U/L 46-116 [facility] ALT [Catalytic activity/Vol] 25 U/L 14-59 [facility] AST [Catalytic activity/Vol] 14 U/L Low 15-37 [facility] Bilirubin [Mass/Vol] 0.7 mg/dL 0.2-1.0 [facility] Calcium [Mass/Vol] 9.3 mg/dL 8.5-10.1 [facility] Chloride [Moles/Vol] 107 mmol/L 98-107 [facility] CO2 [Moles/Vol] 24.5 mmol/L 21.0-32.0 [facility] Creatinine [Mass/Vol] 0.68 mg/dL 0.55-1.02 [facility] GFR/1.73 sq M.predicted MDRD (S/P/Bld) [Vol rate/Area] mL/min/{1.73_m2} >=60 mL/min/1.73m 2 [facility] Glucose [Mass/Vol] 98 mg/dL 74-106 [facility] LDH [Catalytic activity/Vol] 174 U/L 81-234 [facility] Potassium [Moles/Vol] 4.3 mmol/L 3.5-5.1 [facility] Protein [Mass/Vol] 7.4 g/dL 6.4-8.2 [facility] Sodium [Moles/Vol] 142 mmol/L 136-145 [facility] Urate [Mass/Vol] 3.4 mg/dL 2.6-6.0 [facility] Urea nitrogen [Mass/Vol] 7.0 mg/dL 7.0-18.0 [facility] Urea nitrogen/Creatinine [Mass ratio] 10.3 mg/mg [facility] Laboratory - Hematology and Cell countson 05-27-2024 Immature granulocytes/100 WBC (Bld) 0.3 % 0.0-0.5 [facility] Leukocytes [#/volume] correc antolin for nucleated erythrocytes in Blood by Automated counon 05-27-2024 WBC corrected for nucl RBC Auto (Bld) [#/Vol] Leukocytes [#/volume] corrected for nucleated erythrocytes in Blood by Automated coun 4.0-11.0 [facility] Lymphocytes Auto (Bld) [#/Vo l]on 05-27-2024 Lymphocytes (Bld) [#/Vol] Lymphocytes [#/volume] in Blood by Automated count 1.2-3.8 [facility] Lymphocytes/100 WBC Auto (Bl d)on 05-27-2024 Lymphocytes/100 WBC (Bld) Lymphocytes/100 leukocytes in Blood by Automated count 20.5-60.0 [facility] MCH Auto (RBC) [Entitic mass ]on 05-27-2024 MCH (RBC) [Entitic mass] MCH [Entitic mass] by Automated count 26.7-34.0 [facility] MCHC Auto (RBC) [Mass/Vol]on 05-27-2024 MCHC (RBC) [Mass/Vol] MCHC [Mass/volume] by Automated count 29.9-35.2 [facility] MCV Auto (RBC) [Entitic vol] on 05-27-2024 MCV (RBC) [Entitic vol] MCV [Entitic volume] by Automated count 81.0-99.0 [facility] Monocytes Auto (Bld) [#/Vol] on 05-27-2024 Monocytes (Bld) [#/Vol] Automated blood monocyte count 0.3-0.8 [facility] Monocytes/100 WBC Auto (Bld) on 05-27-2024 Monocytes/100 WBC (Bld) Automated monocyte % 1.7-12.0 [facility] Neutrophils Auto (Bld) [#/Vo l]on 05-27-2024 Neutrophils (Bld) [#/Vol] Neutrophils [#/volume] in Blood by Automated count 1.4-6.5 [facility] Neutrophils/100 WBC Auto (Bl d)on 05-27-2024 Neutrophils/100 WBC (Bld) Automated neutrophil % 43.0-75.0 [facility] No Panel Informationon 05-27 Eosinophils # (Auto) 0.1 10 3/uL 0.0-0.7 [facility] Immature Granulocyte # (Auto) 0.02 10 3/uL 0.00-0.03 [facility] Platelet mean volume Auto (B ld) [Entitic vol]on 05-27-2024 Platelet mean volume (Bld) [Entitic vol] Platelet mean volume [Entitic volume] in Blood by Automated count 9.5-13.5 [facility] Platelets Auto (Bld) [#/Vol] on 05-27-2024 Platelets (Bld) [#/Vol] Platelets [#/volume] in Blood by Automated count 150-450 [facility] RBC Auto (Bld) [#/Vol]on RBC (Bld) [#/Vol] Erythrocytes [#/volu me] in Blood by Automated count 4.20-5.40 [facility] Serum or plasma albumin/glob ulin mass ratioon 05-27-2024 Albumin/Globulin [Mass ratio] Serum or plasma albumin/globulin mass ratio [facility] Serum or plasma anion gap de terminationon 05-27-2024 Anion gap [Moles/Vol] Serum or plasma anion gap determination [facility] Documentationon 02-27-2024 Documentation [id number] Kristan Guerrero 1975 F Date Provider Department Center 02/27/[id number], [facility] Spe Pha Comprehensiv Family History Problem Relation Age of Onset Diabetes Mother Hypertension Mother Cancer Father Cancer Maternal Grandfather Stroke Maternal Grandfather Cancer Paternal Grandmother Family Status - Relation Status Age at Mother Father Maternal Grandfather Paternal Grandmother Reason for Visit and Comments: Specialty Pharmacy Initial Assessment. Calquence [Other] Normal [facility] Basophils Auto (Bld) [#/Vol] on 01-29-2024 Basophils (Bld) [#/Vol] 0.0 10 3/uL 0.0-0.1 [facility] Basophils/100 WBC Auto (Bld) on 01-29-2024 Basophils/100 WBC (Bld) 0.7 % 0.2-2.0 [facility] Eosinophils/100 WBC Auto (Bl d)on 01-29-2024 Eosinophils/100 WBC (Bld) 2.0 % 0.9-7.0 [facility] Erythrocyte distribution wid th Auto (RBC) [Ratio]on 01-29-2024 Erythrocyte distribution width (RBC) [Ratio] 12.1 % 11.0-15.0 [facility] Estimated glomerular filtrat ion rate (GFR) non- Americanon 01-29-2024 GFR/1.73 sq M.predicted among non-blacks MDRD (S/P/Bld) [Vol rate/Area] mL/min/{1.73_m2} >=60 [facility] Globulin Calc (S) [Mass/Vol] on 01-29-2024 Globulin (S) [Mass/Vol] 3.7 g/dL [facility] Hematocrit Auto (Bld) [Volum e fraction]on 01-29-2024 Hematocrit (Bld) [Volume fraction] 44.7 % 36.0-48.0 [facility] Hemoglobin [Mass/volume] in Bloodon 01-29-2024 Hemoglobin (Bld) [Mass/Vol] 14.9 g/dL 12.0-16.0 [facility] Laboratory - Chemistry and C hemistry - challengeon 01-29-2024 Albumin [Mass/Vol] 3.7 g/dL 3.4-5.0 [facility] ALP [Catalytic activity/Vol] 87 U/L 46-116 [facility] ALT [Catalytic activity/Vol] 25 U/L 14-59 [facility] AST [Catalytic activity/Vol] 15 U/L 15-37 [facility] Bilirubin [Mass/Vol] 0.5 mg/dL 0.2-1.0 [facility] Calcium [Mass/Vol] 8.7 mg/dL 8.5-10.1 [facility] Chloride [Moles/Vol] 107 mmol/L 98-107 [facility] CO2 [Moles/Vol] 25.6 mmol/L 21.0-32.0 [facility] Creatinine [Mass/Vol] 0.53 mg/dL Low 0.55-1.02 [facility] GFR/1.73 sq M.predicted MDRD (S/P/Bld) [Vol rate/Area] mL/min/{1.73_m2} >=60 [facility] Glucose [Mass/Vol] 106 mg/dL 74-106 [facility] LDH [Catalytic activity/Vol] 167 U/L 81-234 [facility] Potassium [Moles/Vol] 4.1 mmol/L 3.5-5.1 [facility] Protein [Mass/Vol] 7.4 g/dL 6.4-8.2 [facility] Sodium [Moles/Vol] 142 mmol/L 136-145 [facility] Urate [Mass/Vol] 2.9 mg/dL 2.6-6.0 [facility] Urea nitrogen [Mass/Vol] 10.0 mg/dL 7.0-18.0 [facility] Urea nitrogen/Creatinine [Mass ratio] 18.9 mg/mg [facility] Laboratory - Hematology and Cell countson 01-29-2024 Immature granulocytes/100 WBC (Bld) 0.2 % 0.0-0.5 [facility] Leukocytes [#/volume] correc antolin for nucleated erythrocytes in Blood by Automated counon 01-29-2024 WBC corrected for nucl RBC Auto (Bld) [#/Vol] 6.0 10 3/uL 4.0-11.0 [facility] Lymphocytes Auto (Bld) [#/Vo l]on 01-29-2024 Lymphocytes (Bld) [#/Vol] 1.3 10 3/uL 1.2-3.8 [facility] Lymphocytes/100 WBC Auto (Bl d)on 01-29-2024 Lymphocytes/100 WBC (Bld) 21.2 % 20.5-60.0 [facility] MCH Auto (RBC) [Entitic mass ]on 01-29-2024 MCH (RBC) [Entitic mass] 30.1 pg 26.7-34.0 [facility] MCHC Auto (RBC) [Mass/Vol]on 01-29-2024 MCHC (RBC) [Mass/Vol] 33.3 g/dL 29.9-35.2 [facility] MCV Auto (RBC) [Entitic vol] on 01-29-2024 MCV (RBC) [Entitic vol] 90.3 fL 81.0-99.0 [facility] Monocytes Auto (Bld) [#/Vol] on 01-29-2024 Monocytes (Bld) [#/Vol] 0.6 10 3/uL 0.3-0.8 [facility] Monocytes/100 WBC Auto (Bld) on 01-29-2024 Monocytes/100 WBC (Bld) 9.8 % 1.7-12.0 [facility] Neutrophils Auto (Bld) [#/Vo l]on 01-29-2024 Neutrophils (Bld) [#/Vol] 4.0 10 3/uL 1.4-6.5 [facility] Neutrophils/100 WBC Auto (Bl d)on 01-29-2024 Neutrophils/100 WBC (Bld) 66.1 % 43.0-75.0 [facility] No Panel Informationon 01-28 Eosinophils # (Auto) 0.1 10 3/uL 0.0-0.7 [facility] Immature Granulocyte # (Auto) 0.01 10 3/uL 0.00-0.03 [facility] Platelet mean volume Auto (B ld) [Entitic vol]on 01-29-2024 Platelet mean volume (Bld) [Entitic vol] 11.5 fL 9.5-13.5 [facility] Platelets Auto (Bld) [#/Vol] on 01-29-2024 Platelets (Bld) [#/Vol] 197 10 3/uL 150-450 [facility] RBC Auto (Bld) [#/Vol]on RBC (Bld) [#/Vol] 4.95 10 6/uL 4.20-5.40 [facility] Serum or plasma albumin/glob ulin mass ratioon 01-29-2024 Albumin/Globulin [Mass ratio] 1.0 {ratio} [facility] Serum or plasma anion gap de terminationon 01-29-2024 Anion gap [Moles/Vol] 13.5 mmol/L [facility] CBC AUTO DIFFon 10-11-2022 BASO # 0.0 103/ul Normal 0.0-0.1 [facility] Comment on above: Performed By: #### U JORI, PHOS, CMP, LDH #### [facility] [address] [address] [address] Juliocesar Young Basophils/100 WBC (Bld) 0.4 % Normal 0.2-2.0 [facility] Comment on above: Performed By: #### U JORI, PHOS, CMP, LDH #### [facility] [address] [place] [address] Dr. Juliocesar Young EO # 0.1 103/ul Normal 0.0-0.7 [facility] Comment on above: Performed By: #### U JORI, PHOS, CMP, LDH #### [facility] [address] [address] [address] Juliocesar Young Eosinophils/100 WBC (Bld) 1.3 % Normal 0.9-7.0 [facility] Comment on above: Performed By: #### U JORI, PHOS, CMP, LDH #### [facility] [address] [address] [address] Juliocesar Young Erythrocyte distribution width (RBC) [Ratio] 12.4 % Normal 11.0-15.0 [facility] Comment on above: Performed By: #### U JORI, PHOS, CMP, LDH #### [facility] [address] [place] [address] Dr. Juliocesar Young Hematocrit (Bld) [Volume fraction] 39.8 % Normal 36.0-48.0 [facility] Comment on above: Performed By: #### U JORI, PHOS, CMP, LDH #### [facility] [address] [address] [address] Juliocesar Young Hemoglobin (Bld) [Mass/Vol] 13.5 g/dL Normal 12.0-16.0 [facility] Comment on above: Performed By: #### U JORI, PHOS, CMP, LDH #### [facility] [address] [place] [address] Dr. Juliocesar Young IG # 0.03 10e3/ul Normal 0.00-0.03 [facility] Comment on above: Performed By: #### U JORI, PHOS, CMP, LDH #### [facility] [address] [place] [address] Dr. Juliocesar Young IG % 0.4 % Normal 0.0-0.5 [facility] Comment on above: Performed By: #### U JORI, PHOS, CMP, LDH #### [facility] [address] [place] [address] Dr. Juliocesar Young LYMPH # 1.4 103/ul Normal 1.2-3.8 [facility] Comment on above: Performed By: #### U JORI, PHOS, CMP, LDH #### [facility] [address] [place] [address] Dr. Juliocesar Young Lymphocytes/100 WBC (Bld) 21.2 % Normal 20.5-60.0 [facility] Comment on above: Performed By: #### U JORI, PHOS, CMP, LDH #### [facility] [address] [place] [address] Dr. Juliocesar Young MANUAL DIFF REQ NO Normal [facility] Comment on above: Performed By: #### U JORI, PHOS, CMP, LDH #### [facility] [address] [place] [address] Dr. Juliocesar Young MCH (RBC) [Entitic mass] 31.3 pg Normal 26.7-34.0 [facility] Comment on above: Performed By: #### U JORI, PHOS, CMP, LDH #### [facility] [address] [place] [address] Dr. Juliocesar Young MCHC (RBC) [Mass/Vol] 33.9 g/dL Normal 29.9-35.2 [facility] Comment on above: Performed By: #### U JORI, PHOS, CMP, LDH #### [facility] [address] [place] [address] Dr. Juliocesar Young MCV (RBC) [Entitic vol] 92.3 fL Normal 81.0-99.0 [facility] Comment on above: Performed By: #### U JORI, PHOS, CMP, LDH #### [facility] [address] [place] [address] Dr. Juliocesar Young MONO # 0.7 103/ul Normal 0.3-0.8 [facility] Comment on above: Performed By: #### U JORI, PHOS, CMP, LDH #### [facility] [address] [place] [address] Dr. Juliocesar Young Monocytes/100 WBC (Bld) 11.0 % Normal 1.7-12.0 [facility] Comment on above: Performed By: #### U JORI, PHOS, CMP, LDH #### [facility] [address] [place] [address] Dr. Juliocesar Young NEUT # 4.4 103/ul Normal 1.4-6.5 [facility] Comment on above: Performed By: #### U JORI, PHOS, CMP, LDH #### [facility] [address] [place] [address] Dr. Juliocesar Young Neutrophils/100 WBC (Bld) 65.7 % Normal 43.0-75.0 [facility] Comment on above: Performed By: #### U JORI, PHOS, CMP, LDH #### [facility] [address] [place] [address] Dr. Juliocesar Young Platelet mean volume (Bld) [Entitic vol] 10.8 fL Normal 9.5-13.5 [facility] Comment on above: Performed By: #### U JORI, PHOS, CMP, LDH #### [facility] [address] [place] [address] Dr. Juliocesar Young PLT 177 103/ul Normal 150-450 [facility] Comment on above: Performed By: #### U JORI, PHOS, CMP, LDH #### [facility] [address] [place] [address] Dr. Juliocesar Young RBC 4.31 106/ul Normal 4.20-5.40 [facility] Comment on above: Performed By: #### U JORI, PHOS, CMP, LDH #### [facility] [address] [place] [address] Dr. Juliocesar Young WBC 6.7 103/ul Normal 4.0-11.0 [facility] Comment on above: Performed By: #### U JORI, PHOS, CMP, LDH #### [facility] [address] [place] [address] Dr. Juliocesar Young LDHon 10-11-2022 LDH 133 U/L Normal 81-234 [facility] Comment on above: Performed By: #### C MP #### [facility] [address] [place] [address] Dr. Juliocesar Young PHOSPHORUSon 10-11-2022 Phosphate [Mass/Vol] 3.5 mg/dL Normal 2.6-4.7 [facility] Comment on above: Performed By: #### O VAPE #### [facility] [address] [place] [address] Dr. Juliocesar Young PROF 14(COMP METB)on 023 Albumin [Mass/Vol] 3.4 g/dL Normal 3.4-5.0 [facility] Comment on above: Performed By: #### C MP #### [facility] [address] [place] [address] Dr. Juliocesar Young Albumin/Globulin [Mass ratio] 1.2 {ratio} Normal [facility] Comment on above: Performed By: #### C MP #### [facility] [address] [place] [address] Dr. Juliocesar Young ALP [Catalytic activity/Vol] 85 U/L Normal 46-116 [facility] Comment on above: Performed By: #### C MP #### [facility] [address] [place] [address] Dr. Juliocesar Young ALT [Catalytic activity/Vol] 18 U/L Normal 14-59 [facility] Comment on above: Performed By: #### C MP #### [facility] [address] [address] [address] Juliocesar Young Anion gap [Moles/Vol] 10.1 mmol/L Normal [facility] Comment on above: Performed By: #### C MP #### [facility] [address] [address] [address] Juliocesar Young AST [Catalytic activity/Vol] 12 U/L Critically low 15-37 [facility] Comment on above: Performed By: #### C MP #### [facility] [address] [address] [address] Juliocesar Young Bilirubin [Mass/Vol] 0.4 mg/dL Normal 0.2-1.0 [facility] Comment on above: Performed By: #### C MP #### [facility] [address] [address] [address] Juliocesar Young Calcium [Mass/Vol] 8.5 mg/dL Normal 8.5-10.1 [facility] Comment on above: Performed By: #### C MP #### [facility] [address] [address] [address] Juliocesar Young Chloride [Moles/Vol] 110 mmol/L Critically high 98-107 [facility] Comment on above: Performed By: #### C MP #### [facility] [address] [address] [address] Juliocesar Young CO2 [Moles/Vol] 27.9 mmol/L Normal 21.0-32.0 [facility] Comment on above: Performed By: #### C MP #### [facility] [address] [address] [address] Juliocesar Young Creatinine [Mass/Vol] 0.60 mg/dL Normal 0.55-1.02 [facility] Comment on above: Performed By: #### C MP #### [facility] [address] [address] [address] Juliocesar Young EGFR-AF RUSSIAN >60 Normal >=60 [facility] Comment on above: Performed By: #### C MP #### [facility] [address] [address] [address] Juliocesar Young EGFR-NON AF RUSSIAN >60 Normal >=60 [facility] Comment on above: Performed By: #### C MP #### [facility] [address] [address] [address] Juliocesar Young Globulin (S) [Mass/Vol] 2.9 g/dL Normal [facility] Comment on above: Performed By: #### C MP #### [facility] [address] [address] [address] Juliocesar Young Glucose [Mass/Vol] 79 mg/dL Normal 74-106 [facility] Comment on above: Performed By: #### C MP #### [facility] [address] [address] [address] Juliocesar Young Potassium [Moles/Vol] 4.0 mmol/L Normal 3.5-5.1 [facility] Comment on above: Performed By: #### C MP #### [facility] [address] [address] [address] Juliocesar Young Protein [Mass/Vol] 6.3 g/dL Critically low 6.4-8.2 [facility] Comment on above: Performed By: #### C MP #### [facility] [address] [address] [address] Juliocesar Young Sodium [Moles/Vol] 144 mmol/L Normal 136-145 [facility] Comment on above: Performed By: #### C MP #### [facility] [address] [address] [address] Juliocesar Young Urea nitrogen [Mass/Vol] 9.0 mg/dL Normal 7.0-18.0 [facility] Comment on above: Performed By: #### C MP #### [facility] [address] [address] [address] Juliocesar Young Urea nitrogen/Creatinine [Mass ratio] 15.0 mg/mg Normal [facility] Comment on above: Performed By: #### C MP #### [facility] [address] [place] [address] Dr. Juliocesar Young URIC ACID SERUMon 10-11-2022 Urate [Mass/Vol] 3.1 mg/dL Normal 2.6-6.0 [facility] Comment on above: Performed By: #### C MP #### [facility] [address] [place] [address] Dr. Juliocesar Young CBC AUTO DIFFon 07-18-2022 BASO # 0.1 103/ul Normal 0.0-0.1 [facility] Comment on above: Performed By: #### O VAPE #### [facility] [address] [place] [address] Dr. Juliocesar Young Basophils/100 WBC (Bld) 0.6 % Normal 0.2-2.0 [facility] Comment on above: Performed By: #### O VAPE #### [facility] [address] [place] [address] Dr. Juliocesar Young EO # 0.1 103/ul Normal 0.0-0.7 [facility] Comment on above: Performed By: #### O VAPE #### [facility] [address] [place] [address] Dr. Juliocesar Young Eosinophils/100 WBC (Bld) 1.4 % Normal 0.9-7.0 [facility] Comment on above: Performed By: #### O VAPE #### [facility] [address] [place] [address] Dr. Juliocesar Young Erythrocyte distribution width (RBC) [Ratio] 13.1 % Normal 11.0-15.0 [facility] Comment on above: Performed By: #### O VAPE #### [facility] [address] [place] [address] Dr. Juliocesar Young Hematocrit (Bld) [Volume fraction] 41.5 % Normal 36.0-48.0 [facility] Comment on above: Performed By: #### O VAPE #### [facility] [address] [place] [address] Dr. Juliocesar Young Hemoglobin (Bld) [Mass/Vol] 14.2 g/dL Normal 12.0-16.0 [facility] Comment on above: Performed By: #### O VAPE #### [facility] [address] [place] [address] Dr. Juliocesar Young IG # 0.03 10e3/ul Normal 0.00-0.03 [facility] Comment on above: Performed By: #### O VAPE #### [facility] [address] [place] [address] Dr. Juliocesar Young IG % 0.4 % Normal 0.0-0.5 [facility] Comment on above: Performed By: #### O VAPE #### [facility] [address] [place] [address] Dr. Juliocesar Young LYMPH # 1.2 103/ul Normal 1.2-3.8 [facility] Comment on above: Performed By: #### O VAPE #### [facility] [address] [place] [address] Dr. Juliocesar Young Lymphocytes/100 WBC (Bld) 15.4 % Critically low 20.5-60.0 [facility] Comment on above: Performed By: #### O VAPE #### [facility] [address] [place] [address] Dr. Juliocesar Young MANUAL DIFF REQ NO Normal [facility] Comment on above: Performed By: #### O VAPE #### [facility] [address] [place] [address] Dr. Juliocesar Young MCH (RBC) [Entitic mass] 31.0 pg Normal 26.7-34.0 [facility] Comment on above: Performed By: #### O VAPE #### [facility] [address] [place] [address] Dr. Juliocesar Young MCHC (RBC) [Mass/Vol] 34.2 g/dL Normal 29.9-35.2 [facility] Comment on above: Performed By: #### O VAPE #### [facility] [address] [place] [address] Dr. Juliocesar Young MCV (RBC) [Entitic vol] 90.6 fL Normal 81.0-99.0 [facility] Comment on above: Performed By: #### O VAPE #### [facility] [address] [address] [address] Juliocesar Young MONO # 0.8 103/ul Normal 0.3-0.8 [facility] Comment on above: Performed By: #### O VAPE #### [facility] [address] [place] [address] Dr. Juliocesar Young Monocytes/100 WBC (Bld) 9.9 % Normal 1.7-12.0 [facility] Comment on above: Performed By: #### O VAPE #### [facility] [address] [place] [address] Dr. Juliocesar Young NEUT # 5.7 103/ul Normal 1.4-6.5 [facility] Comment on above: Performed By: #### O VAPE #### [facility] [address] [place] [address] Dr. Juliocesar Young Neutrophils/100 WBC (Bld) 72.3 % Normal 43.0-75.0 [facility] Comment on above: Performed By: #### O VAPE #### [facility] [address] [place] [address] Dr. Juliocesar Young Platelet mean volume (Bld) [Entitic vol] 10.7 fL Normal 9.5-13.5 [facility] Comment on above: Performed By: #### O VAPE #### [facility] [address] [place] [address] Dr. Juliocesar Young PLT 199 103/ul Normal 150-450 [facility] Comment on above: Performed By: #### O VAPE #### [facility] [address] [place] [address] Dr. Juliocesar Young RBC 4.58 106/ul Normal 4.20-5.40 [facility] Comment on above: Performed By: #### O VAPE #### [facility] [address] [place] [address] Dr. Juliocesar Young WBC 7.9 103/ul Normal 4.0-11.0 [facility] Comment on above: Performed By: #### O VAPE #### [facility] [address] [address] [address] Juliocesar Young LDHon 07-18-2022 LDH 169 U/L Normal 81-234 [facility] Comment on above: Performed By: #### L ACTFQ #### [facility] [address] [place] [address] Dr. Juliocesar Young PHOSPHORUSon 07-18-2022 Phosphate [Mass/Vol] 3.5 mg/dL Normal 2.6-4.7 [facility] Comment on above: Performed By: #### L ACTFQ #### [facility] [address] [place] [address] Dr. Juliocesar Young PROF 14(COMP METB)on 022 Albumin [Mass/Vol] 3.5 g/dL Normal 3.4-5.0 [facility] Comment on above: Performed By: #### L ACTFQ #### [facility] [address] [place] [address] Dr. Juliocesar Young Albumin/Globulin [Mass ratio] 1.0 {ratio} Normal [facility] Comment on above: Performed By: #### L ACTFQ #### [facility] [address] [place] [address] Dr. Juliocesar Young ALP [Catalytic activity/Vol] 103 U/L Normal 46-116 [facility] Comment on above: Performed By: #### L ACTFQ #### [facility] [address] [place] [address] Dr. Juliocesar Young ALT [Catalytic activity/Vol] 10 U/L Critically low 14-59 [facility] Comment on above: Performed By: #### L ACTFQ #### [facility] [address] [address] [address] Juliocesar Young Anion gap [Moles/Vol] 11.9 mmol/L Normal [facility] Comment on above: Performed By: #### L ACTFQ #### [facility] [address] [place] [address] Dr. Juliocesar Young AST [Catalytic activity/Vol] 11 U/L Critically low 15-37 [facility] Comment on above: Performed By: #### L ACTFQ #### [facility] [address] [address] [address] Juliocesar Young Bilirubin [Mass/Vol] 0.4 mg/dL Normal 0.2-1.0 [facility] Comment on above: Performed By: #### L ACTFQ #### [facility] [address] [place] [address] Dr. Juliocesar Young Calcium [Mass/Vol] 8.7 mg/dL Normal 8.5-10.1 [facility] Comment on above: Performed By: #### L ACTFQ #### [facility] [address] [place] [address] Dr. Juliocesar Young Chloride [Moles/Vol] 105 mmol/L Normal 98-107 [facility] Comment on above: Performed By: #### L ACTFQ #### [facility] [address] [place] [address] Dr. Juliocesar Young CO2 [Moles/Vol] 25.1 mmol/L Normal 21.0-32.0 [facility] Comment on above: Performed By: #### L ACTFQ #### [facility] [address] [place] [address] Dr. Juliocesar Young Creatinine [Mass/Vol] 0.68 mg/dL Normal 0.55-1.02 [facility] Comment on above: Performed By: #### L ACTFQ #### [facility] [address] [place] [address] Dr. Juliocesar Young EGFR-AF RUSSIAN >60 Normal >=60 [facility] Comment on above: Performed By: #### L ACTFQ #### [facility] [address] [place] [address] Dr. Juliocesar Young EGFR-NON AF RUSSIAN >60 Normal >=60 [facility] Comment on above: Performed By: #### L ACTFQ #### [facility] [address] [place] [address] Dr. Juliocesar Young Globulin (S) [Mass/Vol] 3.6 g/dL Normal [facility] Comment on above: Performed By: #### L ACTFQ #### [facility] [address] [address] [address] Juliocesar Young Glucose [Mass/Vol] 101 mg/dL Normal 74-106 [facility] Comment on above: Performed By: #### L ACTFQ #### [facility] [address] [address] [address] Juliocesar Young Potassium [Moles/Vol] 4.0 mmol/L Normal 3.5-5.1 [facility] Comment on above: Performed By: #### L ACTFQ #### [facility] [address] [place] [address] Dr. Juliocesar Young Protein [Mass/Vol] 7.1 g/dL Normal 6.4-8.2 [facility] Comment on above: Performed By: #### L ACTFQ #### [facility] [address] [place] [address] Dr. Juliocesar Young Sodium [Moles/Vol] 138 mmol/L Normal 136-145 [facility] Comment on above: Performed By: #### L ACTFQ #### [facility] [address] [place] [address] Dr. Juliocesar Young Urea nitrogen [Mass/Vol] 9.0 mg/dL Normal 7.0-18.0 [facility] Comment on above: Performed By: #### L ACTFQ #### [facility] [address] [address] [address] Juliocesar Young Urea nitrogen/Creatinine [Mass ratio] 13.2 mg/mg Normal [facility] Comment on above: Performed By: #### L ACTFQ #### [facility] [address] [place] [address] Dr. Juliocesar Young URIC ACID SERUMon 07-18-2022 Urate [Mass/Vol] 2.5 mg/dL Critically low 2.6-6.0 [facility] Comment on above: Performed By: #### O VAPE #### [facility] [address] [address] [address] Juliocesar Young CBC AUTO DIFFon 04-04-2022 BASO # 0.0 103/ul Normal 0.0-0.1 [facility] Comment on above: Performed By: #### U JORI, PHOS, CMP, LDH #### [facility] [address] [place] [address] Dr. Juliocesar Young Basophils/100 WBC (Bld) 0.7 % Normal 0.2-2.0 [facility] Comment on above: Performed By: #### U JORI, PHOS, CMP, LDH #### [facility] [address] [place] [address] Dr. Juliocesar Young EO # 0.1 103/ul Normal 0.0-0.7 [facility] Comment on above: Performed By: #### U JORI, PHOS, CMP, LDH #### [facility] [address] [place] [address] Dr. Juliocesar Young Eosinophils/100 WBC (Bld) 2.5 % Normal 0.9-7.0 [facility] Comment on above: Performed By: #### U JORI, PHOS, CMP, LDH #### [facility] [address] [place] [address] Dr. Juliocesar Young Erythrocyte distribution width (RBC) [Ratio] 14.1 % Normal 11.0-15.0 [facility] Comment on above: Performed By: #### U JORI, PHOS, CMP, LDH #### [facility] [address] [place] [address] Dr. Juliocesar Young Hematocrit (Bld) [Volume fraction] 43.7 % Normal 36.0-48.0 [facility] Comment on above: Performed By: #### U JORI, PHOS, CMP, LDH #### [facility] [address] [place] [address] Dr. Juliocesar Young Hemoglobin (Bld) [Mass/Vol] 14.5 g/dL Normal 12.0-16.0 [facility] Comment on above: Performed By: #### U JORI, PHOS, CMP, LDH #### [facility] [address] [place] [address] Dr. Juliocesar Young IG # 0.01 10e3/ul Normal 0.00-0.03 [facility] Comment on above: Performed By: #### U JORI, PHOS, CMP, LDH #### [facility] [address] [place] [address] Dr. Juliocesar Young IG % 0.2 % Normal 0.0-0.5 [facility] Comment on above: Performed By: #### U JORI, PHOS, CMP, LDH #### [facility] [address] [place] [address] Dr. Juliocesar Young LYMPH # 1.2 103/ul Normal 1.2-3.8 [facility] Comment on above: Performed By: #### U JORI, PHOS, CMP, LDH #### [facility] [address] [place] [address] Dr. Juliocesar Young Lymphocytes/100 WBC (Bld) 26.6 % Normal 20.5-60.0 [facility] Comment on above: Performed By: #### U JORI, PHOS, CMP, LDH #### [facility] [address] [place] [address] Dr. Juliocesar Young MANUAL DIFF REQ NO Normal [facility] Comment on above: Performed By: #### U JORI, PHOS, CMP, LDH #### [facility] [address] [place] [address] Dr. Juliocesar Young MCH (RBC) [Entitic mass] 30.0 pg Normal 26.7-34.0 [facility] Comment on above: Performed By: #### U JORI, PHOS, CMP, LDH #### [facility] [address] [place] [address] Dr. Juliocesar Young MCHC (RBC) [Mass/Vol] 33.2 g/dL Normal 29.9-35.2 [facility] Comment on above: Performed By: #### U JORI, PHOS, CMP, LDH #### [facility] [address] [place] [address] Dr. Juliocesar Young MCV (RBC) [Entitic vol] 90.5 fL Normal 81.0-99.0 [facility] Comment on above: Performed By: #### U JORI, PHOS, CMP, LDH #### [facility] [address] [place] [address] Dr. Juliocesar Young MONO # 0.6 103/ul Normal 0.3-0.8 [facility] Comment on above: Performed By: #### U JORI, PHOS, CMP, LDH #### [facility] [address] [place] [address] Dr. Juliocesar Young Monocytes/100 WBC (Bld) 13.0 % Critically high 1.7-12.0 [facility] Comment on above: Performed By: #### U JORI, PHOS, CMP, LDH #### [facility] [address] [place] [address] Dr. Juliocesar Young NEUT # 2.5 103/ul Normal 1.4-6.5 [facility] Comment on above: Performed By: #### U JORI, PHOS, CMP, LDH #### [facility] [address] [place] [address] Dr. Juliocesar Young Neutrophils/100 WBC (Bld) 57.0 % Normal 43.0-75.0 [facility] Comment on above: Performed By: #### U JORI, PHOS, CMP, LDH #### [facility] [address] [place] [address] Dr. Juliocesar Young Platelet mean volume (Bld) [Entitic vol] 11.0 fL Normal 9.5-13.5 [facility] Comment on above: Performed By: #### U JORI, PHOS, CMP, LDH #### [facility] [address] [place] [address] Dr. Juliocesar Young PLT 156 103/ul Normal 150-450 [facility] Comment on above: Performed By: #### U JORI, PHOS, CMP, LDH #### [facility] [address] [place] [address] Dr. Juliocesar Young RBC 4.83 106/ul Normal 4.20-5.40 [facility] Comment on above: Performed By: #### U JORI, PHOS, CMP, LDH #### [facility] [address] [place] [address] Dr. Juliocesar Young WBC 4.3 103/ul Normal 4.0-11.0 [facility] Comment on above: Performed By: #### U JORI, PHOS, CMP, LDH #### [facility] [address] [place] [address] Dr. Juliocesar Young LDHon 04-04-2022 LDH 256 U/L Critically high 81-234 [facility] Comment on above: Performed By: #### U JORI, PHOS, CMP, LDH #### [facility] [address] [place] [address] Dr. Juliocesar Young PHOSPHORUSon 04-04-2022 Phosphate [Mass/Vol] 3.4 mg/dL Normal 2.6-4.7 [facility] Comment on above: Performed By: #### U JORI, PHOS, CMP, LDH #### [facility] [address] [place] [address] Dr. Juliocesar Young PROF 14(COMP METB)on 022 Albumin [Mass/Vol] 3.6 g/dL Normal 3.4-5.0 [facility] Comment on above: Performed By: #### U JORI, PHOS, CMP, LDH #### [facility] [address] [place] [address] Dr. Juliocesar Young Albumin/Globulin [Mass ratio] 1.2 {ratio} Normal [facility] Comment on above: Performed By: #### U JORI, PHOS, CMP, LDH #### [facility] [address] [place] [address] Dr. Juliocesar Young ALP [Catalytic activity/Vol] 66 U/L Normal 46-116 [facility] Comment on above: Performed By: #### U JORI, PHOS, CMP, LDH #### [facility] [address] [place] [address] Dr. Juliocesar Young ALT [Catalytic activity/Vol] 38 U/L Normal 14-59 [facility] Comment on above: Performed By: #### U JORI, PHOS, CMP, LDH #### [facility] [address] [place] [address] Dr. Juliocesar Young Anion gap [Moles/Vol] 14.7 mmol/L Normal [facility] Comment on above: Performed By: #### U JORI, PHOS, CMP, LDH #### [facility] [address] [address] [address] Juliocesar Young AST [Catalytic activity/Vol] 24 U/L Normal 15-37 [facility] Comment on above: Performed By: #### U JORI, PHOS, CMP, LDH #### [facility] [address] [address] [address] Juliocesar Young Bilirubin [Mass/Vol] 0.6 mg/dL Normal 0.2-1.0 [facility] Comment on above: Performed By: #### U JORI, PHOS, CMP, LDH #### [facility] [address] [address] [address] Juliocesar Young Calcium [Mass/Vol] 8.8 mg/dL Normal 8.5-10.1 [facility] Comment on above: Performed By: #### U JORI, PHOS, CMP, LDH #### [facility] [address] [address] [address] Juliocesar Young Chloride [Moles/Vol] 108 mmol/L Critically high 98-107 [facility] Comment on above: Performed By: #### U JORI, PHOS, CMP, LDH #### [facility] [address] [address] [address] Juliocesar Young CO2 [Moles/Vol] 21.5 mmol/L Normal 21.0-32.0 [facility] Comment on above: Performed By: #### U JORI, PHOS, CMP, LDH #### [facility] [address] [address] [address] Juliocesar Young Creatinine [Mass/Vol] 0.63 mg/dL Normal 0.55-1.02 [facility] Comment on above: Performed By: #### U JORI, PHOS, CMP, LDH #### [facility] [address] [address] [address] Juliocesar Young EGFR-AF RUSSIAN >60 Normal >=60 [facility] Comment on above: Performed By: #### U JORI, PHOS, CMP, LDH #### [facility] [address] [address] [address] Juliocesar Young EGFR-NON AF RUSSIAN >60 Normal >=60 [facility] Comment on above: Performed By: #### U JORI, PHOS, CMP, LDH #### [facility] [address] [address] [address] Juliocesar Young Globulin (S) [Mass/Vol] 3.1 g/dL Normal [facility] Comment on above: Performed By: #### U JORI, PHOS, CMP, LDH #### [facility] [address] [address] [address] Juliocesar Young Glucose [Mass/Vol] 116 mg/dL Critically high 74-106 [facility] Comment on above: Performed By: #### U JORI, PHOS, CMP, LDH #### [facility] [address] [place] [address] Dr. Juliocesar Young Potassium [Moles/Vol] 4.2 mmol/L Normal 3.5-5.1 [facility] Comment on above: Performed By: #### U JORI, PHOS, CMP, LDH #### [facility] [address] [address] [address] Juliocesar Young Protein [Mass/Vol] 6.7 g/dL Normal 6.4-8.2 [facility] Comment on above: Performed By: #### U JORI, PHOS, CMP, LDH #### [facility] [address] [address] [address] Juliocesar Young Sodium [Moles/Vol] 140 mmol/L Normal 136-145 [facility] Comment on above: Performed By: #### U JORI, PHOS, CMP, LDH #### [facility] [address] [place] [address] Dr. Juliocesar Young Urea nitrogen [Mass/Vol] 7.0 mg/dL Normal 7.0-18.0 [facility] Comment on above: Performed By: #### U JORI, PHOS, CMP, LDH #### [facility] [address] [place] [address] Dr. Juliocesar Young Urea nitrogen/Creatinine [Mass ratio] 11.1 mg/mg Normal [facility] Comment on above: Performed By: #### U JORI, PHOS, CMP, LDH #### [facility] [address] [address] [address] Juliocesar Young URIC ACID SERUMon 04-04-2022 Urate [Mass/Vol] 3.2 mg/dL Normal 2.6-6.0 [facility] Comment on above: Performed By: #### U JORI, PHOS, CMP, LDH #### [facility] [address] [address] [address] Juliocesar Young OVA AND PARASITE EXAMINATION on 03-22-2022 Ova + Parasite Exam Final report Normal [facility] Comment on above: Result Comment: Thes e results were obtained using wet preparation(s) and trichrome stained smear. This test does not include testing for Cryptosporidium parvum, Cyclospora, or Microsporidia. Performed By: #### O VAPE #### [facility] [address] [place] [address] Dr. Juliocesar Young Result [address] [facility] Comment on above: Result Comment: No o va, cysts, or parasites seen. . One negative specimen does not rule out the possibility of a parasitic infection. Performed By: #### O VAPE #### [facility] [address] [place] [address] Dr. Juliocesar Young LACTOFERRIN FECAL QUANTon Lactoferrin, Fecal, Quant. <1.00 Normal 0.00-7.24 [facility] Comment on above: Result Comment: Re sults [...] (IBS). Performed By: #### L ACTFQ #### [facility] [address] [place] [address] Dr. Juliocesar Young STOOL CULTUREon 03-20-2022 Campylobacter Culture Final report Normal [facility] Comment on above: Performed By: #### U JORI, PHOS, CMP, LDH #### [facility] [address] [address] [address] Juliocesar Young E coli Shiga Toxin EIA Negative Normal Negative [facility] Comment on above: Performed By: #### U JORI, PHOS, CMP, LDH #### [facility] [address] [address] [address] Juliocesar Young Result 1 Comment Normal [facility] Comment on above: Result Comment: No S almonella or Shigella recovered. Performed By: #### U JORI, PHOS, CMP, LDH #### [facility] [address] [place] [address] Dr. Juliocesar Young Result Comment: No C ampylobacter species isolated. Salmonella/Shigella Screen Final report Normal [facility] Comment on above: Performed By: #### U JORI, PHOS, CMP, LDH #### [facility] [address] [place] [address] Dr. Juliocesar Young C. DIFF PCRon 03-16-2022 C. DIFFICILE PCR Negative Normal NEGATIVE [facility] Comment on above: Performed By: #### L ACTFQ #### [facility] [address] [place] [address] Dr. Juliocesar Young OCC BLD IMMUNO SCREENon 03-06 OCCULT BLOOD Negative Normal NEGATIVE [facility] Comment on above: Performed By: #### U JORI, PHOS, CMP, LDH #### [facility] [address] [place] [address] Dr. Juliocesar Young CBC AUTO DIFFon 03-15-2022 BASO # 0.1 103/ul Normal 0.0-0.1 [facility] Comment on above: Performed By: #### O VAPE #### [facility] [address] [place] [address] Dr. Juliocesar Young Basophils/100 WBC (Bld) 1.0 % Normal 0.2-2.0 [facility] Comment on above: Performed By: #### O VAPE #### [facility] [address] [place] [address] Dr. Juliocesar Young EO # 0.1 103/ul Normal 0.0-0.7 [facility] Comment on above: Performed By: #### O VAPE #### [facility] [address] [place] [address] Dr. Juliocesar Young Eosinophils/100 WBC (Bld) 2.2 % Normal 0.9-7.0 [facility] Comment on above: Performed By: #### O VAPE #### [facility] [address] [place] [address] Dr. Juliocesar Young Erythrocyte distribution width (RBC) [Ratio] 13.1 % Normal 11.0-15.0 [facility] Comment on above: Performed By: #### O VAPE #### [facility] [address] [place] [address] Dr. Juliocesar Young Hematocrit (Bld) [Volume fraction] 41.0 % Normal 36.0-48.0 [facility] Comment on above: Performed By: #### O VAPE #### [facility] [address] [place] [address] Dr. Juliocesar Young Hemoglobin (Bld) [Mass/Vol] 13.9 g/dL Normal 12.0-16.0 [facility] Comment on above: Performed By: #### O VAPE #### [facility] [address] [place] [address] Dr. Juliocesar Young IG # 0.01 10e3/ul Normal 0.00-0.03 [facility] Comment on above: Performed By: #### O VAPE #### [facility] [address] [place] [address] Dr. Juliocesar Young IG % 0.2 % Normal 0.0-0.5 [facility] Comment on above: Performed By: #### O VAPE #### [facility] [address] [place] [address] Dr. Juliocesar Young LYMPH # 1.0 103/ul Critically low 1.2-3.8 [facility] Comment on above: Performed By: #### O VAPE #### [facility] [address] [place] [address] Dr. Juliocesar Young Lymphocytes/100 WBC (Bld) 19.4 % Critically low 20.5-60.0 [facility] Comment on above: Performed By: #### O VAPE #### [facility] [address] [place] [address] Dr. Juliocesar Young MANUAL DIFF REQ NO Normal [facility] Comment on above: Performed By: #### O VAPE #### [facility] [address] [place] [address] Dr. Juliocesar Young MCH (RBC) [Entitic mass] 30.1 pg Normal 26.7-34.0 [facility] Comment on above: Performed By: #### O VAPE #### [facility] [address] [place] [address] Dr. Juliocesar Young MCHC (RBC) [Mass/Vol] 33.9 g/dL Normal 29.9-35.2 [facility] Comment on above: Performed By: #### O VAPE #### [facility] [address] [place] [address] Dr. Juliocesar Young MCV (RBC) [Entitic vol] 88.7 fL Normal 81.0-99.0 [facility] Comment on above: Performed By: #### O VAPE #### [facility] [address] [place] [address] Dr. Juliocesar Young MONO # 0.8 103/ul Normal 0.3-0.8 [facility] Comment on above: Performed By: #### O VAPE #### [facility] [address] [place] [address] Dr. Juliocesar Young Monocytes/100 WBC (Bld) 15.2 % Critically high 1.7-12.0 [facility] Comment on above: Performed By: #### O VAPE #### [facility] [address] [place] [address] Dr. Juliocesar Young NEUT # 3.1 103/ul Normal 1.4-6.5 [facility] Comment on above: Performed By: #### O VAPE #### [facility] [address] [place] [address] Dr. Juliocesar Young Neutrophils/100 WBC (Bld) 62.0 % Normal 43.0-75.0 [facility] Comment on above: Performed By: #### O VAPE #### [facility] [address] [place] [address] Dr. Juliocesar Young Platelet mean volume (Bld) [Entitic vol] 10.9 fL Normal 9.5-13.5 [facility] Comment on above: Performed By: #### O VAPE #### [facility] [address] [place] [address] Dr. Juliocesar Young PLT 175 103/ul Normal 150-450 [facility] Comment on above: Performed By: #### O VAPE #### [facility] [address] [place] [address] Dr. Juliocesar Young RBC 4.62 106/ul Normal 4.20-5.40 [facility] Comment on above: Performed By: #### O VAPE #### [facility] [address] [place] [address] Dr. Juliocesar Young WBC 5.1 103/ul Normal 4.0-11.0 [facility] Comment on above: Performed By: #### O VAPE #### [facility] [address] [place] [address] ABD/PELV W CONon 03-15-20 CT ABD/PELV W CON EXAMINATION: CT ABD/PELV [...] by: LAKHWINDER CHANDLER Date: 2022-03-15 17:32 Normal [facility] CULTURE BLOODon 03-15-2022 Microscopic examination of blood, culture Culture Observations: NO GROWTH AT [address] [facility] Comment on above: Performed By: #### U JORI, PHOS, CMP, LDH #### [facility] [address] [place] [address] Dr. Juliocesar Young Microscopic examination of blood, culture Culture Observations: NO GROWTH AT [address] [facility] Comment on above: Performed By: #### U JORI, PHOS, CMP, LDH #### [facility] [address] [place] [address] Dr. Juliocesar Young ER URINE PROFILEon 2 Bilirubin Ql (U) Negative Normal NEGATIVE [facility] Comment on above: Performed By: #### O VAPE #### [facility] [address] [place] [address] Dr. Juliocesar Young Clarity (U) CLEAR Normal CLEAR [facility] Comment on above: Performed By: #### O VAPE #### [facility] [address] [place] [address] Dr. Juliocesar Young Color (U) LT. YELLOW Normal YELLOW [facility] Comment on above: Performed By: #### O VAPE #### [facility] [address] [place] [address] Dr. Juliocesar Young ERUAHD A micrscopic examination will be performed if indicated. Normal [facility] Comment on above: Performed By: #### O VAPE #### [facility] [address] [place] [address] Dr. Juliocesar Young Glucose Ql (U) Negative Normal NEGATIVE [facility] Comment on above: Performed By: #### O VAPE #### [facility] [address] [place] [address] Dr. Juliocesar Young Hemoglobin Ql (U) Negative Normal NEGATIVE [facility] Comment on above: Performed By: #### O VAPE #### [facility] [address] [place] [address] Dr. Juliocesar Young Ketones Ql (U) 15 mg/dl Abnormal NEGATIVE [facility] Comment on above: Performed By: #### O VAPE #### [facility] [address] [place] [address] Dr. Juliocesar Young LEUKOCYTES Negative Normal NEGATIVE [facility] Comment on above: Performed By: #### O VAPE #### [facility] [address] [place] [address] Dr. Juliocesar Young Nitrite Ql (U) Negative Normal NEGATIVE [facility] Comment on above: Performed By: #### O VAPE #### [facility] [address] [place] [address] Dr. Juliocesar Young pH (U) 6.0 [pH] Normal 5-9 [facility] Comment on above: Performed By: #### O VAPE #### [facility] [address] [place] [address] Dr. Juliocesar Young SPEC GRAVITY 1.005 Normal 1.005-<=1.025 [facility] Comment on above: Performed By: #### O VAPE #### [facility] [address] [place] [address] Dr. Juliocesar Young UA PROTEIN Negative Normal NEGATIVE/ TRACE [facility] Comment on above: Performed By: #### O VAPE #### [facility] [address] [place] [address] Dr. Juliocesar Young UR MICRO IND NOT INDICATED Normal [facility] Comment on above: Performed By: #### O VAPE #### [facility] [address] [place] [address] Dr. Juliocesar Young Urobilinogen Qn (U) 0.2 {Niharika'U}/dL Normal 0.2 - 1. 0 [facility] Comment on above: Performed By: #### O VAPE #### [facility] [address] [place] [address] Dr. Juliocesar Young LACTATE/LACTIC ACIDon 2021 Lactate [Moles/Vol] 1.0 mmol/L Normal 0.4-1.9 [facility] Comment on above: Performed By: #### U JORI, PHOS, CMP, LDH #### [facility] [address] [address] [address] Juliocesar Young LIPASEon 03-15-2022 Lipase [Catalytic activity/Vol] 77.0 U/L Normal 73.0-393.0 [facility] Comment on above: Performed By: #### U JORI, PHOS, CMP, LDH #### [facility] [address] [address] [address] Juliocesar Young PROF 14(COMP METB)on 022 Albumin [Mass/Vol] 3.8 g/dL Normal 3.4-5.0 [facility] Comment on above: Performed By: #### U JORI, PHOS, CMP, LDH #### [facility] [address] [address] [address] Juliocesar Young Albumin/Globulin [Mass ratio] 1.2 {ratio} Normal [facility] Comment on above: Performed By: #### U JORI, PHOS, CMP, LDH #### [facility] [address] [place] [address] Dr. Juliocesar Young ALP [Catalytic activity/Vol] 86 U/L Normal 46-116 [facility] Comment on above: Performed By: #### U JORI, PHOS, CMP, LDH #### [facility] [address] [address] [address] Juliocesar Young ALT [Catalytic activity/Vol] 19 U/L Normal 14-59 [facility] Comment on above: Performed By: #### U JORI, PHOS, CMP, LDH #### [facility] [address] [place] [address] Dr. Juliocesar Young Anion gap [Moles/Vol] 13.0 mmol/L Normal [facility] Comment on above: Performed By: #### U JORI, PHOS, CMP, LDH #### [facility] [address] [place] [address] Dr. Juliocesar Young AST [Catalytic activity/Vol] 20 U/L Normal 15-37 [facility] Comment on above: Performed By: #### U JORI, PHOS, CMP, LDH #### [facility] [address] [address] [address] Juliocesar Young Bilirubin [Mass/Vol] 1.1 mg/dL Critically high 0.2-1.0 [facility] Comment on above: Performed By: #### U JORI, PHOS, CMP, LDH #### [facility] [address] [address] [address] Juliocesar Young Calcium [Mass/Vol] 8.9 mg/dL Normal 8.5-10.1 [facility] Comment on above: Performed By: #### U JORI, PHOS, CMP, LDH #### [facility] [address] [place] [address] Dr. Juliocesar Young Chloride [Moles/Vol] 103 mmol/L Normal 98-107 [facility] Comment on above: Performed By: #### U JORI, PHOS, CMP, LDH #### [facility] [address] [place] [address] Dr. Juliocesar Young CO2 [Moles/Vol] 26.6 mmol/L Normal 21.0-32.0 [facility] Comment on above: Performed By: #### U JORI, PHOS, CMP, LDH #### [facility] [address] [place] [address] Dr. Juliocesar Young Creatinine [Mass/Vol] 0.68 mg/dL Normal 0.55-1.02 [facility] Comment on above: Performed By: #### U JORI, PHOS, CMP, LDH #### [facility] [address] [address] [address] Juliocesar Young EGFR-AF RUSSIAN >60 Normal >=60 [facility] Comment on above: Performed By: #### U JORI, PHOS, CMP, LDH #### [facility] [address] [address] [address] Juliocesar Young EGFR-NON AF RUSSIAN >60 Normal >=60 [facility] Comment on above: Performed By: #### U JORI, PHOS, CMP, LDH #### [facility] [address] [address] [address] Juliocesar Young Globulin (S) [Mass/Vol] 3.3 g/dL Normal [facility] Comment on above: Performed By: #### U JORI, PHOS, CMP, LDH #### [facility] [address] [address] [address] Juliocesar Young Glucose [Mass/Vol] 90 mg/dL Normal 74-106 [facility] Comment on above: Performed By: #### U JORI, PHOS, CMP, LDH #### [facility] [address] [address] [address] Juliocesar Young Potassium [Moles/Vol] 3.6 mmol/L Normal 3.5-5.1 [facility] Comment on above: Performed By: #### U JORI, PHOS, CMP, LDH #### [facility] [address] [address] [address] Juliocesar Young Protein [Mass/Vol] 7.1 g/dL Normal 6.4-8.2 The [facility] Comment on above: Performed By: #### U JORI, PHOS, CMP, LDH #### [facility] [address] [address] [address] Juliocesar Young Sodium [Moles/Vol] 139 mmol/L Normal 136-145 [facility] Comment on above: Performed By: #### U OJRI, PHOS, CMP, LDH #### [facility] [address] [address] [address] Juliocesar Young Urea nitrogen [Mass/Vol] 6.0 mg/dL Critically low 7.0-18.0 [facility] Comment on above: Performed By: #### U JORI, PHOS, CMP, LDH #### [facility] [address] [place] [address] Dr. Juliocesar Young Urea nitrogen/Creatinine [Mass ratio] 8.8 mg/mg Normal [facility] Comment on above: Performed By: #### U JORI, PHOS, CMP, LDH #### [facility] [address] [address] [address] Juliocesar Young MRI THORACIC SPINE W WO CONT RASTon 03-13-2022 MRI THORACIC SPINE W WO CONTRAST [facility] Department of Radiology [address] [place] [id number] ===== Patient Name: DIAMOND GUERRERO : 1975 Sex: F Age: Race: White Pt. Location: 29 Patient Status: D Ordered Date: 02/09/2022 5:25:00 PM Completed Date: 03/13/2022 10:31 AM Requesting Provider: BOONE SALINAS Attending Provider: BOONE SALINAS Report Copy To: Signs & Symptoms: M48.04 Spinal stenosis, thoracic region I10 History: [place], c-spine/ankle hardware, tubal clips (noted) Comments: Exam: [...] disc bulge and central disc protrusion with [id number] central canal stenosis and moderate right and mild to moderate left neural foraminal narrowing. IMPRESSION: Multilevel degenerative disc disease as above with central canal narrowing and neural foraminal narrowing noted. Electronically signed: Kandi Marquez. Transcribed by: [email or web address], User Resident: Electronically Signed by: KANDI MARQUEZ @ 03/14/2022 08:51 AM Normal The [facility] CBC AUTO DIFFon 02-23-2022 BASO # 0.0 103/ul Normal 0.0-0.1 [facility] Comment on above: Performed By: #### U JORI, PHOS, CMP, LDH #### [facility] [address] [address] [address] Juliocesar Young Basophils/100 WBC (Bld) 0.4 % Normal 0.2-2.0 [facility] Comment on above: Performed By: #### U JORI, PHOS, CMP, LDH #### [facility] [address] [address] [address] Juliocesar Young EO # 0.1 103/ul Normal 0.0-0.7 The [facility] Comment on above: Performed By: #### U JORI, PHOS, CMP, LDH #### [facility] [address] [place] [address] Dr. Juliocesar Young Eosinophils/100 WBC (Bld) 1.6 % Normal 0.9-7.0 [facility] Comment on above: Performed By: #### U JORI, PHOS, CMP, LDH #### [facility] [address] [place] [address] Dr. Juliocesar Young Erythrocyte distribution width (RBC) [Ratio] 13.2 % Normal 11.0-15.0 [facility] Comment on above: Performed By: #### U JORI, PHOS, CMP, LDH #### [facility] [address] [place] [address] Dr. Juliocesar Young Hematocrit (Bld) [Volume fraction] 42.4 % Normal 36.0-48.0 [facility] Comment on above: Performed By: #### U JORI, PHOS, CMP, LDH #### [facility] [address] [place] [address] Dr. Juliocesar Young Hemoglobin (Bld) [Mass/Vol] 14.3 g/dL Normal 12.0-16.0 The [facility] Comment on above: Performed By: #### U JORI, PHOS, CMP, LDH #### [facility] [address] [place] [address] Dr. Juliocesar Young IG # 0.02 10e3/ul Normal 0.00-0.03 The [facility] Comment on above: Performed By: #### U JORI, PHOS, CMP, LDH #### [facility] [address] [place] [address] Dr. Juliocesar Young IG % 0.3 % Normal 0.0-0.5 The [facility] Comment on above: Performed By: #### U JORI, PHOS, CMP, LDH #### [facility] [address] [place] [address] Dr. Juliocesar Young LYMPH # 1.5 103/ul Normal 1.2-3.8 The [facility] Comment on above: Performed By: #### U JORI, PHOS, CMP, LDH #### [facility] [address] [place] [address] Dr. Juliocesar Young Lymphocytes/100 WBC (Bld) 22.3 % Normal 20.5-60.0 [facility] Comment on above: Performed By: #### U JORI, PHOS, CMP, LDH #### [facility] [address] [place] [address] Dr. Juliocesar Young MANUAL DIFF REQ NO Normal [facility] Comment on above: Performed By: #### U JORI, PHOS, CMP, LDH #### [facility] [address] [place] [address] Dr. Juliocesar Young MCH (RBC) [Entitic mass] 30.1 pg Normal 26.7-34.0 [facility] Comment on above: Performed By: #### U JORI, PHOS, CMP, LDH #### [facility] [address] [place] [address] Dr. Juliocesar Young MCHC (RBC) [Mass/Vol] 33.7 g/dL Normal 29.9-35.2 [facility] Comment on above: Performed By: #### U JORI, PHOS, CMP, LDH #### [facility] [address] [place] [address] Dr. Juliocesar Young MCV (RBC) [Entitic vol] 89.3 fL Normal 81.0-99.0 [facility] Comment on above: Performed By: #### U JORI, PHOS, CMP, LDH #### [facility] [address] [place] [address] Dr. Juliocesar Young MONO # 0.8 103/ul Normal 0.3-0.8 [facility] Comment on above: Performed By: #### U JORI, PHOS, CMP, LDH #### [facility] [address] [place] [address] Dr. Juliocesar Young Monocytes/100 WBC (Bld) 11.7 % Normal 1.7-12.0 [facility] Comment on above: Performed By: #### U JORI, PHOS, CMP, LDH #### [facility] [address] [address] [address] Juliocesar Young NEUT # 4.3 103/ul Normal 1.4-6.5 [facility] Comment on above: Performed By: #### U JORI, PHOS, CMP, LDH #### [facility] [address] [place] [address] Dr. Juliocesar Young Neutrophils/100 WBC (Bld) 63.7 % Normal 43.0-75.0 [facility] Comment on above: Performed By: #### U JORI, PHOS, CMP, LDH #### [facility] [address] [place] [address] Dr. Juliocesar Young Platelet mean volume (Bld) [Entitic vol] 10.7 fL Normal 9.5-13.5 [facility] Comment on above: Performed By: #### U JORI, PHOS, CMP, LDH #### [facility] [address] [place] [address] Dr. Juliocesar Young PLT 190 103/ul Normal 150-450 [facility] Comment on above: Performed By: #### U JORI, PHOS, CMP, LDH #### [facility] [address] [place] [address] Dr. Juliocesar Young RBC 4.75 106/ul Normal 4.20-5.40 [facility] Comment on above: Performed By: #### U JORI, PHOS, CMP, LDH #### [facility] [address] [place] [address] Dr. Juliocesar Young WBC 6.8 103/ul Normal 4.0-11.0 [facility] Comment on above: Performed By: #### U JORI, PHOS, CMP, LDH #### [facility] [address] [place] [address] Dr. Juliocesar Young LDHon 02-23-2022 LDH 206 U/L Normal 81-234 [facility] Comment on above: Performed By: #### O VAPE #### [facility] [address] [place] [address] Dr. Juliocesar Young PHOSPHORUSon 02-23-2022 Phosphate [Mass/Vol] 3.8 mg/dL Normal 2.6-4.7 [facility] Comment on above: Performed By: #### O VAPE #### [facility] [address] [place] [address] Dr. Juliocesar Young PROF 14(COMP METB)on 022 Albumin [Mass/Vol] 3.3 g/dL Critically low 3.4-5.0 Th [facility] Comment on above: Performed By: #### O VAPE #### [facility] [address] [place] [address] Dr. Juliocesar Young Albumin/Globulin [Mass ratio] 0.9 {ratio} Normal [facility] Comment on above: Performed By: #### O VAPE #### [facility] [address] [place] [address] Dr. Juliocesar Young ALP [Catalytic activity/Vol] 90 U/L Normal 46-116 [facility] Comment on above: Performed By: #### O VAPE #### [facility] [address] [place] [address] Dr. Juliocesar Young ALT [Catalytic activity/Vol] 18 U/L Normal 14-59 [facility] Comment on above: Performed By: #### O VAPE #### [facility] [address] [place] [address] Dr. Juliocesar Young Anion gap [Moles/Vol] 12.0 mmol/L Normal [facility] Comment on above: Performed By: #### O VAPE #### [facility] [address] [place] [address] Dr. Juliocesar Young AST [Catalytic activity/Vol] 14 U/L Critically low 15-37 [facility] Comment on above: Performed By: #### O VAPE #### [facility] [address] [place] [address] Dr. Juliocesar Young Bilirubin [Mass/Vol] 0.4 mg/dL Normal 0.2-1.0 [facility] Comment on above: Performed By: #### O VAPE #### [facility] [address] [address] [address] Juliocesar Young Calcium [Mass/Vol] 8.4 mg/dL Critically low 8.5-10.1 Th e [facility] Comment on above: Performed By: #### O VAPE #### [facility] [address] [address] [address] Juliocesar Young Chloride [Moles/Vol] 107 mmol/L Normal 98-107 [facility] Comment on above: Performed By: #### O VAPE #### [facility] [address] [address] [address] Juliocesar Young CO2 [Moles/Vol] 25.1 mmol/L Normal 21.0-32.0 [facility] Comment on above: Performed By: #### O VAPE #### [facility] [address] [place] [address] Dr. Juliocesar Young Creatinine [Mass/Vol] 0.64 mg/dL Normal 0.55-1.02 [facility] Comment on above: Performed By: #### O VAPE #### [facility] [address] [place] [address] Dr. Juliocesar Young EGFR-AF RUSSIAN >60 Normal >=60 [facility] Comment on above: Performed By: #### O VAPE #### [facility] [address] [place] [address] Dr. Juliocesar Young EGFR-NON AF RUSSIAN >60 Normal >=60 [facility] Comment on above: Performed By: #### O VAPE #### [facility] [address] [place] [address] Dr. Juliocesar Young Globulin (S) [Mass/Vol] 3.5 g/dL Normal [facility] Comment on above: Performed By: #### O VAPE #### [facility] [address] [address] [address] Juliocesar Young Glucose [Mass/Vol] 105 mg/dL Normal 74-106 [facility] Comment on above: Performed By: #### O VAPE #### [facility] [address] [address] [address] Juliocesar Young Potassium [Moles/Vol] 4.1 mmol/L Normal 3.5-5.1 [facility] Comment on above: Performed By: #### O VAPE #### [facility] [address] [address] [address] Juliocesar Young Protein [Mass/Vol] 6.8 g/dL Normal 6.4-8.2 [facility] Comment on above: Performed By: #### O VAPE #### [facility] [address] [address] [address] Juliocesar Young Sodium [Moles/Vol] 140 mmol/L Normal 136-145 [facility] Comment on above: Performed By: #### O VAPE #### [facility] [address] [place] [address] Dr. Juliocesar Young Urea nitrogen [Mass/Vol] 9.0 mg/dL Normal 7.0-18.0 [facility] Comment on above: Performed By: #### O VAPE #### [facility] [address] [address] [address] Juliocesar Young Urea nitrogen/Creatinine [Mass ratio] 14.1 mg/mg Normal [facility] Comment on above: Performed By: #### O VAPE #### [facility] [address] [address] [address] Juliocesar Young URIC ACID SERUMon 02-23-2022 Urate [Mass/Vol] 2.6 mg/dL Normal 2.6-6.0 [facility] Comment on above: Performed By: #### O VAPE #### [facility] [address] [address] [address] Juliocesar Young Coding Summary.on 02-16-2022 Coding Summary. CD:[id number] Gh0 bWw+PGhlYWQ+FK4NEBPjF62 foBSfyO1TM5lUXF9LJXEZHP YIIN9CDQ9bpGW2QAecH4Otq iAv TrhuuUNeZO95RJg5OMT9pMz gIAicnD7zpFNkU9x7JyDvTD 57lF55JUrqBGHpHhR8VsWnq jsgbWFy L0wuDhGwvPLgCxs+PHRhYmx lIHdpZHRoPScxMDAlJyBzdH npQO3cMg6iEXYbAAKaxRpmt HNlOiBj b3uvQIAhVLquOD2yvIyhJ1Y tgKX2RFYay7y3Wv76iFK+PH PgYJC8nXokQIjzi064UvDsm 2shSXI0 sFMxMZcrDOB6G09qf0N9WJX jVACsANX4yPB2gB0pjCtduk bnO3CqzSYhFkR9YGW4vNUqz P4aqXpo vnpjrY6oHiu+M59NZL4KIEC QXM2CJsz9I1CeBnrnaMJ+PC 68ABHnUR34jOSmhHLtq0nrz Ef1XzFi CIWjSZP1pKklEQntl5LoGAU bD32sxRNdt6U6HGCofUlzkA OoWfZmuKP5pE6yLZqlsxrgm 2hvdzsn Hxnnj2ynkx19zC67L19jFUj mQRRiFVP3SDLtZIQvtRlrfl 1jeH9uRw5+IQrld9tqm5aww Qm5JrJm KVBaucRprVgmPEN5o5IdOd6 7D5QbbDtpf2ZiCed9io08sY Zms2Z8aPU5HRghGGGarP4rT WxlZnQ6 ZJMuOwWjxY74tQSdNIniFv9 aeCdjqPltGP7cSAOyfnpvYJ FsfF1kFUZcxKQlrQsfYI5rY TBpbjtm m833XlGwYBK6SONbvUVfF2W qnG0gDzAxWFHvVGCtY3SakS CsDCunY244PMctOvU5MMJwv bPlA6Pt FMHcfIszTkL1e0N2Qj4Ww0A kdxepQAA4HNmnFND2PpA1Uy TwMaJ2Y0WzTun9LPUseMfnU K3pZ7Ld BSXgwsrugjlsxMA5WYYpREB foI77rHXyKSbqMx4dx5D9n5 07QCZlKUSyjH08Eu2fzPniS TBwdCBU bZ5rbnmem8socsftUnZkPPW iHYo2KCq0SOJiiCqdQzPuSM D0CbS0YQV5hWSyjC1rxFewn ncjzJ4j Oyc+U49hkT0gIQQ1QPY0uzb yQKDvhzTrYB85UO90G2MtCu wvdGFibGU+PGRpdiBzdHlsZ A4pMnFy r8mem5FxNXodC0IjMBWsVDy kIdz6VHMnUGP9yLV0vM4wWI SyNDzhp8B2nHL0U7NcreUxy j6op1vj SDIkLXohR90agYEgw8B3OIW jePJ8PIPruOgwMtTswH17Vz c+FOXfvVzei2MxKstwj2nsf 5hmjJe0 FuAbVADrjrMfrSyaAON9r3G gAn94N94cKHzqFNSoYSGeVC GfCOGysQygcs2lpR7aEz6+P GNvbCB3 aTU9uT2eCVZtXvZ5OPcaQ07 9SqYyuAQcLmfiq1hwp3sdfD j7UsYwOKTkioIwuNaeNBD1q 3YvNa33 S94dBEynAAZhNRZoSOXzFIX eoKlwbh3urC6qDe1+PC9jb2 fptx32cL58oHU+NSIxCUG0w WxlPSdw UKGihW5oFLrqQxZ9URWyUgZ ypU00wYNmRXysZi5qxGgwuD cyFX2pFHDmjgbbf785YyDeu 2xkIDEw iQBkJRyvHSW9L95js1Q9GMC dLHTmXTQ4rTT5vM5tdQsyow ogbGVmdDsgdmVydGljYWwtY WzeK002 IHRvcDsnPlBhdGllbnQgTmF jLXb3X3KlRxi1WMPxzAyeYH 4wdIOnTEtvIs3nbNmkaNupF C5jJDYg sksgg973QxFlz3pgNKAxvEN hBKolNED9K10ka8S3PFHlYW RtHBI1xEU2bS0gyMzbyqkfx GVmdDsg emYkjSgeEGswOAgnL046ICN ieDisCiNbktVcOMQrqZO6AA 66CZ93zNUml6S6oKX2L1TxP GRpbmct qazobJS1IMXpMIQmrH65Gf5 jkAdpOl8mOVVqZYR3HRNwlQ DwC0MnvJ2eWxCsQPHnLKTqF 3RleHQt CNvqV818CBlsZcB6HOFkewE wF0FaDBZuqFivUyQ5x9L1Hk 4BR6T0IA31QE66sYKmc1Z6l OH0L5Bb ESVhwgjaytufiOB6VETaYGU scO97Mt7rkDgxKz6zIHYwZE N6KGIgfXQcC2YcxB1nYbZqP DAwMDAw S0HxsNAtOBdhT367CBoqMvE 3TBEqedEsP3CzFPJypCriPc H4s1T4Xe4FOAq1PG51RI52v QSrs7E6 aZE3Z2NxLLQrlbwyipdqhHN 3FSLrCPOmpD17Xr0kpVgiQx 1dRPFdSPQ9YNPvyLSpF9Skk G5xOuWd LMTqSCXxJ0NftIIxORfgR23 7UStoRsT9ZAHmaiEzL5WfAY LtoRbcAbS2g8D7Eg3UXXGaA R35AEE1 lYZ6OU30CJ42V2JzCyvtnDT ibGU+PHRhYmxlIHdpZHRoPS vfXBFlXsTbhVezZO4hXi9nB GVyLWNv aJjklSWiKbAhu2jhSACxSKh aJD1swXhdO6MxwEE2DKIgo2 e5Pm58F77zA5VolQT+PGNvb MU8qCL7 bC7aLiYrSfK6GUvnE163RpD fkHVzEtwhm1lvp2ajkLn2Wk Q9UKYzajGxfWlxZGC6t3XhN j44Z89v IHdpZHRoPSIxNSUiIHZhbGl cic0fiT6uQs2+AXChsDT2yB D6kX2wTuMpImW9EGjhH835C nRvcCIv Sumkf8bvo4wteAi6PmEqTWN qhmAxaYecYHV2d5QmKp38I9 PezYbmb8WdAac7bz97yDAct 4Q5nFB2 V6JaFLMvwentyIZhgJkmWS2 gUVXcehrxZVPquD5nPUTeF6 j7XuSmYuR6IUyzS4ZvobV6O DEwcHQg VRjgLXD2W29fm9I7SGJoJMZ uKWV3iBQ7iG8mjWcbcpswcO VmdDsgdmVydGljYWwtYWxpZ 246IHRv iSfzGQXerA4gJQFjuTYmrZm uKT9cQBIaqcynJdIZOFQFSV hbKY8IAEFEIIZ7E9MkKzq1T CBzdHls QD7zqPVoGJzpBu1ohInofWr yPL0iNYAppycuOZDssS6eIU ZlqWDnyRnaGP5uHBKwgupal 250OiAx EFF7QKBezOVjD3JspS3jMwG hHNBrQROdW8WlfCKrKKmgH4 62MSwiXrZ6KDThmxJdP4DlO WFsaWdu LoC7b8Q5Om8sVM1iHL9fCAh 9UF34VI71gIKqu4X7kMM3H2 OgRHIpxnfrcavyzZR9CJOoQ DUwaW47 cGTmNRvbGh7tk6G9m434FHS bBJZstK50Wk0hjOzdZLWdyH NKwP8ozzyvb9uyvvrhXrYwM DAwMDt0 QQr6CNFufHdmAgJnTWS5AvL 8KOI2rUVoeK5txXukgzemdB 9wOyc+NTufZVMqgsJ4K7PaP zk2QQXm iNdaDO3yzNTwWAtgGz1voJi scPgvRN3eZRKwlmllRBIkgM 3tDBLubHChoXbbZB1yUSYrs etzz310 TvYfCCI8SVTfePXtL6SalW0 hDbWfHPBjERFgL1KvyRXdTA swS202SRlyCxU1ZBNlrjNkM 2FsLWFs yNnkOcS6w6Q8Zd2CPD8qlWH 5A2ArSuq7AWRhgTazZU0vjM BpUKtdDf9wxDqydQefBQ5rY TBpbjtw PEFzpB4oVQVmyJNttLvbMJ3 rQUZfbwinu456ZvZtBWJ0FL KyqVFjX9YiwU5rDiHtJXUmL CQqT2Be iORnLBtjK387VSkiJtI0KRZ vkiEgX3JzMXHxqBonCnF9q0 B1Id9DaSNiXMDlJP88AI68H O01W2Jl PjwvdGFibGU+PHRhYmxlIHd pZHRoPScxMDAlJyBzdHlsZT 2dQq5aYEOpNBUxhBojtUMvM fTkf2fv YKDaCWuoCE8yfGlnP9WauWB 4DDUzb8w0Ku90L50hM7MngR A+PCMogRE1mYN5mO1aKtRhD rH4ADsi D680IyOfpJDvLgvsj8wlw8d cxXz5FhRpUFCbwgDebBjtAF J5t2SgSf12F18rPTfsLUTlM SIyMCUi DVIjmHsnjj0gpK9oZf7+PGN ogAU4bTU8rA9uDyGtYsY6SP ygV702EePinFJhNwypT12gP 3JvdXA+ KVDiHvz4WYHsvAdsDC7emES sOBytYk2kCXK2ZfTtNlAzKN slX3OcAQJxdhdnjhcqoKQ4T DAuMDUw aW10Du6krGdmMq1gBQKoEYK 7OSPytTZqT0UkrA1bWpQtQE KgDJJuO5PnqXBcQBvwA135C GxlZnQ7 YVVufpOtL7YjYAWitSkkRxZ 1d6P5Xa5LeEgxhVEzZZ2qNk RbAXn6W0XcMqk7TRFxlSruY A0bdFMj PSzwKr4ovWuqnHwmBB1jZZM mbphos966AeKtt5ndRLLunU CjEPpeZSS1A71rj8G6HNMgB DAwMDA7 jNS2mE2llEllwccgnVByjKe uldXlwGsxRGjmXVwsD783EI KtaXbzBqGAXgi4X9UwAfx4L CBzdHls AE1dlNYwVYryBv5amLwnhSw zVE0cSWYmkmbvb049IeWhb6 qiNIEylWEqLYieDAK1H28fy 0Q6UGWc RIXnUCF3jBT2aO0vmCwphut gbGVmdDsgdmVydGljYWwtYW kqV319UYDqqVmaKb8RSnn2U 3SbYqo1 NSTzyTnzBG7zoANqFYmbYp5 itRnrlPrbIV7bNGSubaxtn9 76NpCqo6bmKXCvvCMjQCmxL UW9W29a r6Y9SJIfFGPfHXC6nHP8sQ4 hbGlnbjogbGVmdDsgdmVydG cpRNamYXtoA812MBYqdHrmG lBheWVy OjwvdGQ+BL47en97Y5ShOns oHht9WSAnJFV6aSO9qR9kFP UbEXtyx0X8tLE3Y0NvwfJye j6rz6ug YXBz (more content not included)... Normal [facility] CTA CHESTon 02-08-2022 CTA CHEST [facility] Department of Radiology [address] [place] [address] ===== Patient Name: DIAMOND GUERRERO : 1975 Sex: F Age: Race: White Pt. Location: 29 Patient Status: O Ordered Date: 02/08/2022 4:00:00 PM Completed Date: 02/08/2022 05:01 PM Requesting Provider: BOONE SALINAS Attending Provider: BOONE SALINAS Report Copy To: SELF, REFERRED Signs & Symptoms: R07.89 Other chest pain I10 History: alvaro Manuel pt. until after doc is called with results [phone] Comments: , chronic lymphoid leukemia with chest [...] nodules. Electronically signed: Roxanna Thomas. 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 Current treatment obinutuzumab and acalabrutinib possible PE Consent for Treatmenton Consent for Treatment [id number] D:127 Normal [facility] US Abdomen, Limitedon 2021 US Abdomen, Limited [...] Signed by: Roxanna Phoenix MD Transcribed by: DP Technologist: NATHALIE Normal [facility] Physician Orderon 01-31-2022 Physician Order [id number] D:127 Normal [facility] CBC W MANUAL DIFFon 01-27-20 22 ATYPICAL LYMPH # 0.57 103/ul Normal [facility] Comment on above: Performed By: #### U JORI, PHOS, CMP, LDH #### [facility] [address] [address] [address] Juliocesar Young ATYPICAL LYMPH % 5 % Normal [facility] Comment on above: Performed By: #### U JORI, PHOS, CMP, LDH #### [facility] [address] [place] [address] Dr. Juliocesar Young BAND # Normal 0.0-0.3 [facility] Comment on above: Performed By: #### U JORI, PHOS, CMP, LDH #### [facility] [address] [address] [address] Juliocesar Young BAND % Normal 0-5 [facility] Comment on above: Performed By: #### U JORI, PHOS, CMP, LDH #### [facility] [address] [place] [address] Dr. Juliocesar Young BASOM # 0.00 103/ul Normal 0.00-0.10 [facility] Comment on above: Performed By: #### U JORI, PHOS, CMP, LDH #### [facility] [address] [place] [address] Dr. Juliocesar Young BASOM % 0.0 % Critically low 0.2-2.0 [facility] Comment on above: Performed By: #### U JORI, PHOS, CMP, LDH #### [facility] [address] [place] [address] Dr. Juliocesar oYung BLAST # Normal [facility] Comment on above: Performed By: #### U JORI, PHOS, CMP, LDH #### [facility] [address] [place] [address] Dr. Juliocesar Young BLAST % Normal [facility] Comment on above: Performed By: #### U JORI, PHOS, CMP, LDH #### [facility] [address] [address] [address] Juliocesar Young CORRECTED WBC Normal 4.0-11.0 [facility] Comment on above: Performed By: #### U JORI, PHOS, CMP, LDH #### [facility] [address] [address] [address] Juliocesar Young EOS # 0.12 103/ul Normal 0.00-0.70 [facility] Comment on above: Performed By: #### U JORI, PHOS, CMP, LDH #### [facility] [address] [address] [address] Juliocesar Young EOS% 1.0 % Normal 0.9-7.0 [facility] Comment on above: Performed By: #### U JORI, PHOS, CMP, LDH #### [facility] [address] [address] [address] Juliocesar Young HCT 44.2 % Normal 36.0-48.0 [facility] Comment on above: Performed By: #### U JORI, PHOS, CMP, LDH #### [facility] [address] [address] [address] Juliocesar Young HGB 14.8 g/dl Normal 12.0-16.0 [facility] Comment on above: Performed By: #### U JORI, PHOS, CMP, LDH #### [facility] [address] [address] [address] Juliocesar Young LYMPHM # 5.17 103/ul Critically high 1.20-3.80 [facility] Comment on above: Performed By: #### U JORI, PHOS, CMP, LDH #### [facility] [address] [address] [address] Juliocesar Young LYMPHM% 45.0 % Normal 20.5-60.0 [facility] Comment on above: Performed By: #### U JORI, PHOS, CMP, LDH #### [facility] [address] [address] [address] Juliocesar Young MCH 30.5 pg Normal 26.7-34.0 [facility] Comment on above: Performed By: #### U JORI, PHOS, CMP, LDH #### [facility] [address] [address] [address] Juliocesar Young MCHC 33.5 g/dl Normal 29.9-35.2 [facility] Comment on above: Performed By: #### U JORI, PHOS, CMP, LDH #### [facility] [address] [address] [address] Juliocesar Young MCV 90.9 fL Normal 81.0-99.0 [facility] Comment on above: Performed By: #### U JORI, PHOS, CMP, LDH #### [facility] [address] [place] [address] Dr. Juliocesar Young METAMYELOCYTE # Normal [facility] Comment on above: Performed By: #### U JORI, PHOS, CMP, LDH #### [facility] [address] [place] [address] Dr. Juliocesar Young METAMYELOCYTE % Normal [facility] Comment on above: Performed By: #### U JORI, PHOS, CMP, LDH #### [facility] [address] [address] [address] Juliocesar Young MONOM# 0.81 103/ul Critically high 0.30-0.80 [facility] Comment on above: Performed By: #### U JORI, PHOS, CMP, LDH #### [facility] [address] [place] [address] Dr. Juliocesar Young MONOM% 7.0 % Normal 1.7-12.0 [facility] Comment on above: Performed By: #### U JORI, PHOS, CMP, LDH #### [facility] [address] [place], [place] [address] Dr. Juliocesar Young MPV 10.1 fL Normal 9.5-13.5 [facility] Comment on above: Performed By: #### U JORI, PHOS, CMP, LDH #### [facility] [address] [place] [address] Dr. Juliocesar Young MYELOCYTE # Normal [facility] Comment on above: Performed By: #### U JORI, PHOS, CMP, LDH #### [facility] [address] [address] [address] Juliocesar Young MYELOCYTE % Normal [facility] Comment on above: Performed By: #### U JORI, PHOS, CMP, LDH #### [facility] [address] [address] [address] Juliocesar Young NRBC Normal [facility] Comment on above: Performed By: #### U JORI, PHOS, CMP, LDH #### [facility] [address] [address] [address] Juliocesar Young PLT 214 103/ul Normal 150-450 [facility] Comment on above: Performed By: #### U JORI, PHOS, CMP, LDH #### [facility] [address] [address] [address] Juliocesar Yougn RBC 4.86 106/ul Normal 4.20-5.40 [facility] Comment on above: Performed By: #### U JORI, PHOS, CMP, LDH #### [facility] [address] [address] [address] Juliocesar Young RDW 13.3 % Normal 11.0-15.0 [facility] Comment on above: Performed By: #### U JORI, PHOS, CMP, LDH #### [facility] [address] [address] [address] Juliocesar Young SEG # 4.83 103/ul Normal 1.40-6.50 [facility] Comment on above: Performed By: #### U JORI, PHOS, CMP, LDH #### [facility] [address] [address] [address] Juliocesar Young SEG % 42.0 % Critically low 43.0-75.0 [facility] Comment on above: Performed By: #### U JORI, PHOS, CMP, LDH #### [facility] [address] [address] [address] Juliocesar Young WBC 11.5 103/ul Critically high 4.0-11.0 [facility] Comment on above: Performed By: #### U JORI, PHOS, CMP, LDH #### [facility] [address] [address] [address] Juliocesar Young LDHon 01-26-2022 LDH 184 U/L Normal 81-234 [facility] Comment on above: Performed By: #### U JORI, PHOS, CMP, LDH #### [facility] [address] [address] [address] Juliocesar Young PHOSPHORUSon 01-26-2022 Phosphate [Mass/Vol] 3.0 mg/dL Normal 2.6-4.7 [facility] Comment on above: Performed By: #### U JORI, PHOS, CMP, LDH #### [facility] [address] [address] [address] Juliocesar Young PROF 14(COMP METB)on 022 Albumin [Mass/Vol] 3.4 g/dL Normal 3.4-5.0 [facility] Comment on above: Performed By: #### U JORI, PHOS, CMP, LDH #### [facility] [address] [address] [address] Juliocesar Young Albumin/Globulin [Mass ratio] 0.9 {ratio} Normal [facility] Comment on above: Performed By: #### U JORI, PHOS, CMP, LDH #### [facility] [address] [address] [address] Juliocesar Young ALP [Catalytic activity/Vol] 85 U/L Normal 46-116 [facility] Comment on above: Performed By: #### U JORI, PHOS, CMP, LDH #### [facility] [address] [address] [address] Juliocesar Young ALT [Catalytic activity/Vol] 20 U/L Normal 14-59 [facility] Comment on above: Performed By: #### U JORI, PHOS, CMP, LDH #### [facility] [address] [address] [address] Juliocesar Young Anion gap [Moles/Vol] 12.6 mmol/L Normal [facility] Comment on above: Performed By: #### U JORI, PHOS, CMP, LDH #### [facility] [address] [address] [address] Juliocesar Young AST [Catalytic activity/Vol] 12 U/L Critically low 15-37 [facility] Comment on above: Performed By: #### U JORI, PHOS, CMP, LDH #### [facility] [address] [address] [address] Juliocesar Young Bilirubin [Mass/Vol] 0.5 mg/dL Normal 0.2-1.0 [facility] Comment on above: Performed By: #### U JORI, PHOS, CMP, LDH #### [facility] [address] [address] [address] Juliocesar Young Calcium [Mass/Vol] 8.5 mg/dL Normal 8.5-10.1 [facility] Comment on above: Performed By: #### U JORI, PHOS, CMP, LDH #### [facility] [address] [place] [address] Dr. Juliocesar Young Chloride [Moles/Vol] 107 mmol/L Normal 98-107 [facility] Comment on above: Performed By: #### U JORI, PHOS, CMP, LDH #### [facility] [address] [place] [address] Dr. Juliocesar Young CO2 [Moles/Vol] 24.8 mmol/L Normal 21.0-32.0 [facility] Comment on above: Performed By: #### U JORI, PHOS, CMP, LDH #### [facility] [address] [address] [address] Juliocesar Young Creatinine [Mass/Vol] 0.60 mg/dL Normal 0.55-1.02 [facility] Comment on above: Performed By: #### U JORI, PHOS, CMP, LDH #### [facility] [address] [place] [address] Dr. Juliocesar Young EGFR-AF RUSSIAN >60 Normal >=60 [facility] Comment on above: Performed By: #### U JORI, PHOS, CMP, LDH #### [facility] [address] [place] [address] Dr. Juliocesar Young EGFR-NON AF RUSSIAN >60 Normal >=60 [facility] Comment on above: Performed By: #### U JORI, PHOS, CMP, LDH #### [facility] [address] [address] [address] Juliocesar Young Globulin (S) [Mass/Vol] 3.6 g/dL Normal [facility] Comment on above: Performed By: #### U JORI, PHOS, CMP, LDH #### [facility] [address] [address] [address] Juliocesar Young Glucose [Mass/Vol] 96 mg/dL Normal 74-106 [facility] Comment on above: Performed By: #### U JORI, PHOS, CMP, LDH #### [facility] [address] [place] [address] Dr. Juliocesar Young Potassium [Moles/Vol] 4.4 mmol/L Normal 3.5-5.1 [facility] Comment on above: Performed By: #### U JORI, PHOS, CMP, LDH #### [facility] [address] [address] [address] Juliocesar Young Protein [Mass/Vol] 7.0 g/dL Normal 6.4-8.2 [facility] Comment on above: Performed By: #### U JORI, PHOS, CMP, LDH #### [facility] [address] [address] [address] Juliocesar Young Sodium [Moles/Vol] 140 mmol/L Normal 136-145 [facility] Comment on above: Performed By: #### U JORI, PHOS, CMP, LDH #### [facility] [address] [address] [address] Juliocesar Young Urea nitrogen [Mass/Vol] 9.0 mg/dL Normal 7.0-18.0 [facility] Comment on above: Performed By: #### U JORI, PHOS, CMP, LDH #### [facility] [address] [address] [address] Juliocesar Young Urea nitrogen/Creatinine [Mass ratio] 15.0 mg/mg Normal [facility] Comment on above: Performed By: #### U JORI, PHOS, CMP, LDH #### [facility] [address] [address] [address] Juliocesar Young URIC ACID SERUMon 01-26-2022 Urate [Mass/Vol] 2.2 mg/dL Critically low 2.6-6.0 [facility] Comment on above: Performed By: #### U JORI, PHOS, CMP, LDH #### [facility] [address] [address] [address] Juliocesar Young CBC W MANUAL DIFFon 01-11-20 22 ANISOCYTOSIS 1+ Normal [facility] Comment on above: Performed By: #### U JORI, PHOS, CMP, LDH #### [facility] [address] [address] [address] Juliocesar Young ATYPICAL LYMPH # 2.48 103/ul Normal [facility] Comment on above: Performed By: #### U JORI, PHOS, CMP, LDH #### [facility] [address] [address] [address] Juliocesar Young ATYPICAL LYMPH % 14 % Normal [facility] Comment on above: Performed By: #### U JORI, PHOS, CMP, LDH #### [facility] [address] [address] [address] Juliocesar Young BAND # Normal 0.0-0.3 [facility] Comment on above: Performed By: #### U JORI, PHOS, CMP, LDH #### [facility] [address] [address] [address] Juliocesar Young BAND % Normal 0-5 [facility] Comment on above: Performed By: #### U JORI, PHOS, CMP, LDH #### [facility] [address] [address] [address] Juliocesar Young BASOM # 0.00 103/ul Normal 0.00-0.10 [facility] Comment on above: Performed By: #### U JORI, PHOS, CMP, LDH #### [facility] [address] [address] [address] Juliocesar Young BASOM % 0.0 % Critically low 0.2-2.0 [facility] Comment on above: Performed By: #### U JORI, PHOS, CMP, LDH #### [facility] [address] [address] [address] Juliocesar Young BLAST # Normal [facility] Comment on above: Performed By: #### U JORI, PHOS, CMP, LDH #### [facility] [address] [address] [address] Juliocesar Young BLAST % Normal [facility] Comment on above: Performed By: #### U JORI, PHOS, CMP, LDH #### [facility] [address] [address] [address] Juliocesar Young CORRECTED WBC Normal 4.0-11.0 [facility] Comment on above: Performed By: #### U JORI, PHOS, CMP, LDH #### [facility] [address] [address] [address] Juliocesar Young EOS # 0.00 103/ul Normal 0.00-0.70 [facility] Comment on above: Performed By: #### U JORI, PHOS, CMP, LDH #### [facility] [address] [address] [address] Juliocesar Young EOS% 0.0 % Critically low 0.9-7.0 [facility] Comment on above: Performed By: #### U JORI, PHOS, CMP, LDH #### [facility] [address] [address] [address] Juliocesar Young HCT 41.9 % Normal 36.0-48.0 [facility] Comment on above: Performed By: #### U JORI, PHOS, CMP, LDH #### [facility] [address] [address] [address] Juliocesar Young HGB 13.7 g/dl Normal 12.0-16.0 [facility] Comment on above: Performed By: #### U JORI, PHOS, CMP, LDH #### [facility] [address] [address] [address] Juliocesar Young LYMPHM # 8.67 103/ul Critically high 1.20-3.80 [facility] Comment on above: Performed By: #### U JORI, PHOS, CMP, LDH #### [facility] [address] [address] [address] Juliocesar Young LYMPHM% 49.0 % Normal 20.5-60.0 [facility] Comment on above: Performed By: #### U JORI, PHOS, CMP, LDH #### [facility] [address] [address] [address] Juliocesar Young MCH 30.0 pg Normal 26.7-34.0 [facility] Comment on above: Performed By: #### U JORI, PHOS, CMP, LDH #### [facility] [address] [place] [address] Dr. Juliocesar Young MCHC 32.7 g/dl Normal 29.9-35.2 [facility] Comment on above: Performed By: #### U JORI, PHOS, CMP, LDH #### [facility] [address] [place] [address] Dr. Juliocesar Young MCV 91.9 fL Normal 81.0-99.0 [facility] Comment on above: Performed By: #### U JORI, PHOS, CMP, LDH #### [facility] [address] [place] [address] Dr. Juliocesar Young METAMYELOCYTE # Normal [facility] Comment on above: Performed By: #### U JORI, PHOS, CMP, LDH #### [facility] [address] [place] [address] Dr. Juliocesar Young METAMYELOCYTE % Normal [facility] Comment on above: Performed By: #### U JORI, PHOS, CMP, LDH #### [facility] [address] [address] [address] Juliocesar Young MONOM# 0.71 103/ul Normal 0.30-0.80 [facility] Comment on above: Performed By: #### U JORI, PHOS, CMP, LDH #### [facility] [address] [address] [address] Juliocesar Young MONOM% 4.0 % Normal 1.7-12.0 [facility] Comment on above: Performed By: #### U JORI, PHOS, CMP, LDH #### [facility] [address] [address] [address] Juliocesar Young MPV 10.4 fL Normal 9.5-13.5 [facility] Comment on above: Performed By: #### U JORI, PHOS, CMP, LDH #### [facility] [address] [address] [address] Juliocesar Young MYELOCYTE # Normal [facility] Comment on above: Performed By: #### U JORI, PHOS, CMP, LDH #### [facility] [address] [address] [address] Juliocesar Young MYELOCYTE % Normal [facility] Comment on above: Performed By: #### U JORI, PHOS, CMP, LDH #### [facility] [address] [place] [address] Dr. Juliocesar Young NRBC Normal [facility] Comment on above: Performed By: #### U JORI, PHOS, CMP, LDH #### [facility] [address] [place] [address] Dr. Juliocesar Young PLT 180 103/ul Normal 150-450 [facility] Comment on above: Performed By: #### U JORI, PHOS, CMP, LDH #### [facility] [address] [address] [address] Juliocesar Young RBC 4.56 106/ul Normal 4.20-5.40 [facility] Comment on above: Performed By: #### U JORI, PHOS, CMP, LDH #### [facility] [address] [place] [address] Dr. Juliocesar Young RDW 14.1 % Normal 11.0-15.0 [facility] Comment on above: Performed By: #### U JORI, PHOS, CMP, LDH #### [facility] [address] [place] [address] Dr. Juliocesar Young SEG # 5.84 103/ul Normal 1.40-6.50 [facility] Comment on above: Performed By: #### U JORI, PHOS, CMP, LDH #### [facility] [address] [address] [address] Juliocesar Young SEG % 33.0 % Critically low 43.0-75.0 [facility] Comment on above: Performed By: #### U JORI, PHOS, CMP, LDH #### [facility] [address] [address] [address] Juliocesar Young WBC 17.7 103/ul Critically high 4.0-11.0 [facility] Comment on above: Performed By: #### U JORI, PHOS, CMP, LDH #### [facility] [address] [address] [address] Juliocesar Young LDHon 01-10-2022 LDH 163 U/L Normal 81-234 [facility] Comment on above: Performed By: #### U JORI, PHOS, CMP, LDH #### [facility] [address] [place] [address] Dr. Juliocesar Young PHOSPHORUSon 01-10-2022 Phosphate [Mass/Vol] 2.4 mg/dL Critically low 2.6-4.7 [facility] Comment on above: Performed By: #### U JORI, PHOS, CMP, LDH #### [facility] [address] [place] [address] Dr. Juliocesar Young PROF 14(COMP METB)on 022 Albumin [Mass/Vol] 3.2 g/dL Critically low 3.4-5.0 [facility] Comment on above: Performed By: #### U JORI, PHOS, CMP, LDH #### [facility] [address] [place] [address] Dr. Juliocesar Young Albumin/Globulin [Mass ratio] 0.9 {ratio} Normal [facility] Comment on above: Performed By: #### U JORI, PHOS, CMP, LDH #### [facility] [address] [place] [address] Dr. Juliocesar Young ALP [Catalytic activity/Vol] 90 U/L Normal 46-116 [facility] Comment on above: Performed By: #### U JORI, PHOS, CMP, LDH #### [facility] [address] [address] [address] Juliocesar Young ALT [Catalytic activity/Vol] 21 U/L Normal 14-59 [facility] Comment on above: Performed By: #### U JORI, PHOS, CMP, LDH #### [facility] [address] [address] [address] Juliocesar Young Anion gap [Moles/Vol] 10.4 mmol/L Normal [facility] Comment on above: Performed By: #### U JORI, PHOS, CMP, LDH #### [facility] [address] [address] [address] Juliocesar Young AST [Catalytic activity/Vol] 11 U/L Critically low 15-37 [facility] Comment on above: Performed By: #### U JORI, PHOS, CMP, LDH #### [facility] [address] [place] [address] Dr. Juliocesar Young Bilirubin [Mass/Vol] 0.3 mg/dL Normal 0.2-1.0 [facility] Comment on above: Performed By: #### U JORI, PHOS, CMP, LDH #### [facility] [address] [address] [address] Juliocesar Young Calcium [Mass/Vol] 8.4 mg/dL Critically low 8.5-10.1 [facility] Comment on above: Performed By: #### U JORI, PHOS, CMP, LDH #### [facility] [address] [address] [address] Juliocesar Young Chloride [Moles/Vol] 109 mmol/L Critically high 98-107 [facility] Comment on above: Performed By: #### U JORI, PHOS, CMP, LDH #### [facility] [address] [address] [address] Juliocesar Young CO2 [Moles/Vol] 27.4 mmol/L Normal 21.0-32.0 [facility] Comment on above: Performed By: #### U JORI, PHOS, CMP, LDH #### [facility] [address] [address] [address] Juliocesar Young Creatinine [Mass/Vol] 0.53 mg/dL Critically low 0.55-1.02 [facility] Comment on above: Performed By: #### U JORI, PHOS, CMP, LDH #### [facility] [address] [address] [address] Juliocesar Young EGFR-AF RUSSIAN >60 Normal >=60 [facility] Comment on above: Performed By: #### U JORI, PHOS, CMP, LDH #### [facility] [address] [address] [address] Juliocesar Young EGFR-NON AF RUSSIAN >60 Normal >=60 [facility] Comment on above: Performed By: #### U JORI, PHOS, CMP, LDH #### [facility] [address] [address] [address] Juliocesar Young Globulin (S) [Mass/Vol] 3.6 g/dL Normal [facility] Comment on above: Performed By: #### U JORI, PHOS, CMP, LDH #### [facility] [address] [address] [address] Juliocesar Young Glucose [Mass/Vol] 108 mg/dL Critically high 74-106 [facility] Comment on above: Performed By: #### U JORI, PHOS, CMP, LDH #### [facility] [address] [address] [address] Juliocesar Young Potassium [Moles/Vol] 3.8 mmol/L Normal 3.5-5.1 [facility] Comment on above: Performed By: #### U JORI, PHOS, CMP, LDH #### [facility] [address] [address] [address] Juliocesar Young Protein [Mass/Vol] 6.8 g/dL Normal 6.4-8.2 [facility] Comment on above: Performed By: #### U JORI, PHOS, CMP, LDH #### [facility] [address] [address] [address] Juliocesar Young Sodium [Moles/Vol] 143 mmol/L Normal 136-145 [facility] Comment on above: Performed By: #### U JORI, PHOS, CMP, LDH #### [facility] [address] [place] [address] Dr. Juliocesar Young Urea nitrogen [Mass/Vol] 9.0 mg/dL Normal 7.0-18.0 [facility] Comment on above: Performed By: #### U JORI, PHOS, CMP, LDH #### [facility] [address] [place] [address] Dr. Juliocesar Young Urea nitrogen/Creatinine [Mass ratio] 17.0 mg/mg Normal [facility] Comment on above: Performed By: #### U JORI, PHOS, CMP, LDH #### [facility] [address] [place] [address] Dr. Juliocesar Young URIC ACID SERUMon 01-10-2022 Urate [Mass/Vol] 2.0 mg/dL Critically low 2.6-6.0 [facility] Comment on above: Performed By: #### U JORI, PHOS, CMP, LDH #### [facility] [address] [place] [address] Dr. Juliocesar Young CBC AUTO DIFFon 12-29-2021 BASO # 0.1 103/ul Normal 0.0-0.1 [facility] Comment on above: Performed By: #### U JORI, PHOS, CMP, LDH #### [facility] [address] [place] [address] Dr. Juliocesar Young Basophils/100 WBC (Bld) 0.4 % Normal 0.2-2.0 [facility] Comment on above: Performed By: #### U JORI, PHOS, CMP, LDH #### [facility] [address] [place] [address] Dr. Juliocesar Young EO # 0.1 103/ul Normal 0.0-0.7 [facility] Comment on above: Performed By: #### U JORI, PHOS, CMP, LDH #### [facility] [address] [place] [address] Dr. Juliocesar Young Eosinophils/100 WBC (Bld) 0.2 % Critically low 0.9-7.0 [facility] Comment on above: Performed By: #### U JORI, PHOS, CMP, LDH #### [facility] [address] [address] [address] Juliocesar Young Erythrocyte distribution width (RBC) [Ratio] 14.2 % Normal 11.0-15.0 [facility] Comment on above: Performed By: #### U JORI, PHOS, CMP, LDH #### [facility] [address] [place] [address] Dr. Juliocesar Young Hematocrit (Bld) [Volume fraction] 43.8 % Normal 36.0-48.0 [facility] Comment on above: Performed By: #### U JORI, PHOS, CMP, LDH #### [facility] [address] [address] [address] Juliocesar Young Hemoglobin (Bld) [Mass/Vol] 14.5 g/dL Normal 12.0-16.0 [facility] Comment on above: Performed By: #### U JORI, PHOS, CMP, LDH #### [facility] [address] [place] [address] Dr. Juliocesar Young IG # 0.06 10e3/ul Critically high 0.00-0.03 [facility] Comment on above: Performed By: #### U JORI, PHOS, CMP, LDH #### [facility] [address] [place] [address] Dr. Juliocesar Young IG % 0.2 % Normal 0.0-0.5 [facility] Comment on above: Performed By: #### U JORI, PHOS, CMP, LDH #### [facility] [address] [address] [address] Juliocesar Young LYMPH # 17.6 103/ul Critically high 1.2-3.8 [facility] Comment on above: Performed By: #### U JORI, PHOS, CMP, LDH #### [facility] [address] [place] [address] Dr. Juliocesar Young Lymphocytes/100 WBC (Bld) 72.9 % Critically high 20.5-60.0 [facility] Comment on above: Performed By: #### U JORI, PHOS, CMP, LDH #### [facility] [address] [place] [address] Dr. Juliocesar Young MANUAL DIFF REQ NO Normal [facility] Comment on above: Performed By: #### U JORI, PHOS, CMP, LDH #### [facility] [address] [place] [address] Dr. Juliocesar Young MCH (RBC) [Entitic mass] 30.5 pg Normal 26.7-34.0 [facility] Comment on above: Performed By: #### U JORI, PHOS, CMP, LDH #### [facility] [address] [place] [address] Dr. Juliocesar Young MCHC (RBC) [Mass/Vol] 33.1 g/dL Normal 29.9-35.2 [facility] Comment on above: Performed By: #### U JORI, PHOS, CMP, LDH #### [facility] [address] [place] [address] Dr. Juliocesar Young MCV (RBC) [Entitic vol] 92.0 fL Normal 81.0-99.0 [facility] Comment on above: Performed By: #### U JORI, PHOS, CMP, LDH #### [facility] [address] [place] [address] Dr. Juliocesar Young MONO # 0.7 103/ul Normal 0.3-0.8 [facility] Comment on above: Performed By: #### U JORI, PHOS, CMP, LDH #### [facility] [address] [place] [address] Dr. Juliocesar Young Monocytes/100 WBC (Bld) 2.9 % Normal 1.7-12.0 [facility] Comment on above: Performed By: #### U JORI, PHOS, CMP, LDH #### [facility] [address] [place] [address] Dr. Juliocesar Young NEUT # 5.7 103/ul Normal 1.4-6.5 [facility] Comment on above: Performed By: #### U JORI, PHOS, CMP, LDH #### [facility] [address] [place] [address] Dr. Juliocesar Young Neutrophils/100 WBC (Bld) 23.4 % Critically low 43.0-75.0 [facility] Comment on above: Performed By: #### U JORI, PHOS, CMP, LDH #### [facility] [address] [place] [address] Dr. Juliocesar Young Platelet mean volume (Bld) [Entitic vol] 10.5 fL Normal 9.5-13.5 [facility] Comment on above: Performed By: #### U JORI, PHOS, CMP, LDH #### [facility] [address] [address] [address] Juliocesar Young PLT 236 103/ul Normal 150-450 [facility] Comment on above: Performed By: #### U JORI, PHOS, CMP, LDH #### [facility] [address] [place] [address] Dr. Juliocesar Young RBC 4.76 106/ul Normal 4.20-5.40 [facility] Comment on above: Performed By: #### U JORI, PHOS, CMP, LDH #### [facility] [address] [place] [address] Dr. Juliocesar Young WBC 24.2 103/ul Critically high 4.0-11.0 [facility] Comment on above: Performed By: #### U JORI, PHOS, CMP, LDH #### [facility] [address] [place] [address] Dr. Juliocesar Young LDHon 12-29-2021 LDH 171 U/L Normal 81-234 [facility] Comment on above: Performed By: #### U JORI, PHOS, CMP, LDH #### [facility] [address] [place] [address] Dr. Juliocesar Young PHOSPHORUSon 12-29-2021 Phosphate [Mass/Vol] 3.4 mg/dL Normal 2.6-4.7 [facility] Comment on above: Performed By: #### L DH, CMP, PHOS, URIC #### [facility] [address] [place] [address] Dr. Juliocesar Young PROF 14(COMP METB)on 022 Albumin [Mass/Vol] 3.6 g/dL Normal 3.4-5.0 [facility] Comment on above: Performed By: #### L DH, CMP, PHOS, URIC #### [facility] [address] [place] [address] Dr. Juliocesar Young Albumin/Globulin [Mass ratio] 0.9 {ratio} Normal [facility] Comment on above: Performed By: #### L DH, CMP, PHOS, URIC #### [facility] [address] [place] [address] Dr. Juliocesar Young ALP [Catalytic activity/Vol] 91 U/L Normal 46-116 [facility] Comment on above: Performed By: #### L DH, CMP, PHOS, URIC #### [facility] [address] [place] [address] Dr. Juliocesar Young ALT [Catalytic activity/Vol] 25 U/L Normal 14-59 [facility] Comment on above: Performed By: #### L DH, CMP, PHOS, URIC #### [facility] [address] [place] [address] Dr. Juliocesar Young Anion gap [Moles/Vol] 13.4 mmol/L Normal [facility] Comment on above: Performed By: #### L DH, CMP, PHOS, URIC #### [facility] [address] [place] [address] Dr. Juliocesar Young AST [Catalytic activity/Vol] 12 U/L Critically low 15-37 [facility] Comment on above: Performed By: #### L DH, CMP, PHOS, URIC #### [facility] [address] [place] [address] Dr. Juliocesar Young Bilirubin [Mass/Vol] 0.5 mg/dL Normal 0.2-1.0 [facility] Comment on above: Performed By: #### L DH, CMP, PHOS, URIC #### [facility] [address] [place] [address] Dr. Juliocesar Young Calcium [Mass/Vol] 9.2 mg/dL Normal 8.5-10.1 [facility] Comment on above: Performed By: #### L DH, CMP, PHOS, URIC #### [facility] [address] [address] [address] Juliocesar Young Chloride [Moles/Vol] 104 mmol/L Normal 98-107 [facility] Comment on above: Performed By: #### L DH, CMP, PHOS, URIC #### [facility] [address] [address] [address] Juliocesar Young CO2 [Moles/Vol] 24.6 mmol/L Normal 21.0-32.0 [facility] Comment on above: Performed By: #### L DH, CMP, PHOS, URIC #### [facility] [address] [address] [address] Juliocesar Young Creatinine [Mass/Vol] 0.60 mg/dL Normal 0.55-1.02 [facility] Comment on above: Performed By: #### L DH, CMP, PHOS, URIC #### [facility] [address] [address] [address] Juliocesar Young EGFR-AF RUSSIAN >60 Normal >=60 [facility] Comment on above: Performed By: #### L DH, CMP, PHOS, URIC #### [facility] [address] [address] [address] Juliocesar Young EGFR-NON AF RUSSIAN >60 Normal >=60 [facility] Comment on above: Performed By: #### L DH, CMP, PHOS, URIC #### [facility] [address] [address] [address] Juliocesar Young Globulin (S) [Mass/Vol] 3.9 g/dL Normal [facility] Comment on above: Performed By: #### L DH, CMP, PHOS, URIC #### [facility] [address] [address] [address] Juliocesar Young Glucose [Mass/Vol] 100 mg/dL Normal 74-106 [facility] Comment on above: Performed By: #### L DH, CMP, PHOS, URIC #### [facility] [address] [address] [address] Juliocesar Young Potassium [Moles/Vol] 4.0 mmol/L Normal 3.5-5.1 [facility] Comment on above: Performed By: #### L DH, CMP, PHOS, URIC #### [facility] [address] [place] [address] Dr. Juliocesar Young Protein [Mass/Vol] 7.5 g/dL Normal 6.4-8.2 [facility] Comment on above: Performed By: #### L DH, CMP, PHOS, URIC #### [facility] [address] [place] [address] Dr. Juliocesar Young Sodium [Moles/Vol] 138 mmol/L Normal 136-145 [facility] Comment on above: Performed By: #### L DH, CMP, PHOS, URIC #### [facility] [address] [place] [address] Dr. Juliocesar Young Urea nitrogen [Mass/Vol] 6.0 mg/dL Critically low 7.0-18.0 [facility] Comment on above: Performed By: #### L DH, CMP, PHOS, URIC #### [facility] [address] [place] [address] Dr. Juliocesar Young Urea nitrogen/Creatinine [Mass ratio] 10.0 mg/mg Normal [facility] Comment on above: Performed By: #### L DH, CMP, PHOS, URIC #### [facility] [address] [place] [address] Dr. Juliocesar Young URIC ACID SERUMon 12-29-2021 Urate [Mass/Vol] 2.6 mg/dL Normal 2.6-6.0 [facility] Comment on above: Performed By: #### L DH, CMP, PHOS, URIC #### [facility] [address] [place] [address] Dr. Juliocesar Young CBC AUTO DIFFon 12-20-2021 BASO # 0.0 103/ul Normal 0.0-0.1 [facility] Comment on above: Performed By: #### O VAPE #### [facility] [address] [place] [address] Dr. Juliocesar Young Basophils/100 WBC (Bld) 0.1 % Critically low 0.2-2.0 [facility] Comment on above: Performed By: #### O VAPE #### [facility] [address] [place] [address] Dr. Juliocesar Young EO # 0.2 103/ul Normal 0.0-0.7 [facility] Comment on above: Performed By: #### O VAPE #### [facility] [address] [place] [address] Dr. Juliocesar Young Eosinophils/100 WBC (Bld) 0.6 % Critically low 0.9-7.0 [facility] Comment on above: Performed By: #### O VAPE #### [facility] [address] [place] [address] Dr. Juliocesar Young Erythrocyte distribution width (RBC) [Ratio] 14.6 % Normal 11.0-15.0 [facility] Comment on above: Performed By: #### O VAPE #### [facility] [address] [place] [address] Dr. Juliocesar Young Hematocrit (Bld) [Volume fraction] 44.1 % Normal 36.0-48.0 [facility] Comment on above: Performed By: #### O VAPE #### [facility] [address] [place] [address] Dr. Juliocesar Young Hemoglobin (Bld) [Mass/Vol] 14.7 g/dL Normal 12.0-16.0 [facility] Comment on above: Performed By: #### O VAPE #### [facility] [address] [place] [address] Dr. Juliocesar Young IG # 0.07 10e3/ul Critically high 0.00-0.03 [facility] Comment on above: Performed By: #### O VAPE #### [facility] [address] [place] [address] Dr. Juliocesar Young IG % 0.2 % Normal 0.0-0.5 [facility] Comment on above: Performed By: #### O VAPE #### [facility] [address] [place] [address] Dr. Juliocesar Young LYMPH # 27.2 103/ul Critically high 1.2-3.8 [facility] Comment on above: Performed By: #### O VAPE #### [facility] [address] [place] [address] Dr. Juliocesar Young Lymphocytes/100 WBC (Bld) 78.1 % Critically high 20.5-60.0 [facility] Comment on above: Performed By: #### O VAPE #### [facility] [address] [place] [address] Dr. Juliocesar Young MANUAL DIFF REQ YES Normal [facility] Comment on above: Performed By: #### O VAPE #### [facility] [address] [place] [address] Dr. Juliocesar Young MCH (RBC) [Entitic mass] 30.3 pg Normal 26.7-34.0 [facility] Comment on above: Performed By: #### O VAPE #### [facility] [address] [place] [address] Dr. Juliocesar Young MCHC (RBC) [Mass/Vol] 33.3 g/dL Normal 29.9-35.2 [facility] Comment on above: Performed By: #### O VAPE #### [facility] [address] [place] [address] Dr. Juliocesar Young MCV (RBC) [Entitic vol] 90.9 fL Normal 81.0-99.0 [facility] Comment on above: Performed By: #### O VAPE #### [facility] [address] [place] [address] Dr. Juliocesar Young MONO # 0.9 103/ul Critically high 0.3-0.8 [facility] Comment on above: Performed By: #### O VAPE #### [facility] [address] [place] [address] Dr. Juliocesar Young Monocytes/100 WBC (Bld) 2.5 % Normal 1.7-12.0 [facility] Comment on above: Performed By: #### O VAPE #### [facility] [address] [place] [address] Dr. Juliocesar Young NEUT # 6.4 103/ul Normal 1.4-6.5 [facility] Comment on above: Performed By: #### O VAPE #### [facility] [address] [address] [address] Juliocesar Young Neutrophils/100 WBC (Bld) 18.5 % Critically low 43.0-75.0 [facility] Comment on above: Performed By: #### O VAPE #### [facility] [address] [address] [address] Juliocesar Young Platelet mean volume (Bld) [Entitic vol] 9.9 fL Normal 9.5-13.5 [facility] Comment on above: Performed By: #### O VAPE #### [facility] [address] [place] [address] Dr. Juliocesar Young PLT 220 103/ul Normal 150-450 [facility] Comment on above: Performed By: #### O VAPE #### [facility] [address] [place] [address] Dr. Juliocesar Young RBC 4.85 106/ul Normal 4.20-5.40 [facility] Comment on above: Performed By: #### O VAPE #### [facility] [address] [place] [address] Dr. Juliocesar Young WBC 34.8 103/ul Critically high 4.0-11.0 [facility] Comment on above: Result Comment: test repeated critical value verified Performed By: #### O VAPE #### [facility] [address] [place] [address] Dr. Juliocesar Young DIFFERENTIAL MANUALon 2021 ATYPICAL LYMPH # Normal [facility] Comment on above: Performed By: #### U JORI, PHOS, CMP, LDH #### [facility] [address] [place] [address] Dr. Juliocesar Young ATYPICAL LYMPH % Normal [facility] Comment on above: Performed By: #### U JORI, PHOS, CMP, LDH #### [facility] [address] [place] [address] Dr. Juliocesar Young BAND # 0.0 103/ul Normal 0.0-0.3 [facility] Comment on above: Performed By: #### U JORI, PHOS, CMP, LDH #### [facility] [address] [address] [address] Juliocesar Young BAND % 0 % Normal 0-5 [facility] Comment on above: Performed By: #### U JORI, PHOS, CMP, LDH #### [facility] [address] [address] [address] Juliocesar SOLOOM # 0.00 103/ul Normal 0.00-0.10 [facility] Comment on above: Performed By: #### U JORI, PHOS, CMP, LDH #### [facility] [address] [address] [address] Juliocesar SOLOOM % 0.0 % Critically low 0.2-2.0 [facility] Comment on above: Performed By: #### U JORI, PHOS, CMP, LDH #### [facility] [address] [address] [address] Juliocesar Young BLAST # Normal [facility] Comment on above: Performed By: #### U JORI, PHOS, CMP, LDH #### [facility] [address] [address] [address] Juliocesar Young BLAST % Normal [facility] Comment on above: Performed By: #### U JORI, PHOS, CMP, LDH #### [facility] [address] [address] [address] Juliocesar Young CORRECTED WBC Normal 4.0-11.0 [facility] Comment on above: Performed By: #### U JORI, PHOS, CMP, LDH #### [facility] [address] [address] [address] Juliocesar Young EOS # 0.35 103/ul Normal 0.00-0.70 [facility] Comment on above: Performed By: #### U JORI, PHOS, CMP, LDH #### [facility] [address] [address] [address] Juliocesar Young EOS% 1.0 % Normal 0.9-7.0 [facility] Comment on above: Performed By: #### U JORI, PHOS, CMP, LDH #### [facility] [address] [address] [address] Juliocesar Young LYMPHM # 28.80 103/ul Critically high 1.20-3.80 [facility] Comment on above: Performed By: #### U JORI, PHOS, CMP, LDH #### [facility] [address] [address] [address] Juliocesar Young LYMPHM% 83.0 % Critically high 20.5-60.0 [facility] Comment on above: Performed By: #### U JORI, PHOS, CMP, LDH #### [facility] [address] [address] [address] Juliocesar Young METAMYELOCYTE # Normal [facility] Comment on above: Performed By: #### U JORI, PHOS, CMP, LDH #### [facility] [address] [address] [address] Juliocesar Young METAMYELOCYTE % Normal [facility] Comment on above: Performed By: #### U JORI, PHOS, CMP, LDH #### [facility] [address] [address] [address] Juliocesar Young MONOM# 0.69 103/ul Normal 0.30-0.80 [facility] Comment on above: Performed By: #### U JORI, PHOS, CMP, LDH #### [facility] [address] [address] [address] Juliocesar Young MONOM% 2.0 % Normal 1.7-12.0 [facility] Comment on above: Performed By: #### U JORI, PHOS, CMP, LDH #### [facility] [address] [address] [address] Juliocesar Young MYELOCYTE # Normal [facility] Comment on above: Performed By: #### U JORI, PHOS, CMP, LDH #### [facility] [address] [address] [address] Juliocesar Young MYELOCYTE % Normal [facility] Comment on above: Performed By: #### U JORI, PHOS, CMP, LDH #### [facility] [address] [address] [address] Juliocesar Young [facility] Normal [facility] Comment on above: Performed By: #### U JORI, PHOS, CMP, LDH #### [facility] [address] [address] Juliocesar Young SEG # 4.86 103/ul Normal 1.40-6.50 [facility] Comment on above: Performed By: #### U JORI, PHOS, CMP, LDH #### [facility] [address] [place] [address] Dr. Juliocesar Young SEG % 14.0 % Critically low 43.0-75.0 [facility] Comment on above: Performed By: #### U JORI, PHOS, CMP, LDH #### [facility] [address] [place] [address] Dr. Juliocesar Young WBC 34.7 103/ul Critically high 4.0-11.0 [facility] Comment on above: Performed By: #### U JORI, PHOS, CMP, LDH #### [facility] [address] [place] [address] Dr. Juliocesar Young PROF 14(COMP METB)on 022 Albumin [Mass/Vol] 3.5 g/dL Normal 3.4-5.0 [facility] Comment on above: Performed By: #### C MP #### [facility] [address] [place] [address] Dr. Juliocesar Young Albumin/Globulin [Mass ratio] 0.9 {ratio} Normal [facility] Comment on above: Performed By: #### C MP #### [facility] [address] [place] [address] Dr. Juliocesar Young ALP [Catalytic activity/Vol] 95 U/L Normal 46-116 [facility] Comment on above: Performed By: #### C MP #### [facility] [address] [address] [address] Juliocesar Young ALT [Catalytic activity/Vol] 27 U/L Normal 14-59 [facility] Comment on above: Performed By: #### C MP #### [facility] [address] [address] [address] Juliocesar Young Anion gap [Moles/Vol] 13.1 mmol/L Normal [facility] Comment on above: Performed By: #### C MP #### [facility] [address] [address] [address] Juliocesar Young AST [Catalytic activity/Vol] 13 U/L Critically low 15-37 [facility] Comment on above: Performed By: #### C MP #### [facility] [address] [place] [address] Dr. Juliocesar Young Bilirubin [Mass/Vol] 0.4 mg/dL Normal 0.2-1.0 [facility] Comment on above: Performed By: #### C MP #### [facility] [address] [place] [address] Dr. Juliocesar Young Calcium [Mass/Vol] 8.6 mg/dL Normal 8.5-10.1 [facility] Comment on above: Performed By: #### C MP #### [facility] [address] [place] [address] Dr. Juliocesar Young Chloride [Moles/Vol] 104 mmol/L Normal 98-107 [facility] Comment on above: Performed By: #### C MP #### [facility] [address] [place] [address] Dr. Juliocesar Young CO2 [Moles/Vol] 24.7 mmol/L Normal 21.0-32.0 [facility] Comment on above: Performed By: #### C MP #### [facility] [address] [place] [address] Dr. Juliocesar Young Creatinine [Mass/Vol] 0.60 mg/dL Normal 0.55-1.02 [facility] Comment on above: Performed By: #### C MP #### [facility] [address] [place] [address] Dr. Juliocesar Young EGFR-AF RUSSIAN >60 Normal >=60 [facility] Comment on above: Performed By: #### C MP #### [facility] [address] [address] [address] Juliocesar Young EGFR-NON AF RUSSIAN >60 Normal >=60 [facility] Comment on above: Performed By: #### C MP #### [facility] [address] [place] [address] Dr. Juliocesar Young Globulin (S) [Mass/Vol] 3.9 g/dL Normal [facility] Comment on above: Performed By: #### C MP #### [facility] [address] [place] [address] Dr. Juliocesar Young Glucose [Mass/Vol] 91 mg/dL Normal 74-106 [facility] Comment on above: Performed By: #### C MP #### [facility] [address] [place] [address] Dr. Juliocesar Young Potassium [Moles/Vol] 3.8 mmol/L Normal 3.5-5.1 [facility] Comment on above: Performed By: #### C MP #### [facility] [address] [place] [address] Dr. Juliocesar Young Protein [Mass/Vol] 7.4 g/dL Normal 6.4-8.2 [facility] Comment on above: Performed By: #### C MP #### [facility] [address] [place] [address] Dr. Juliocesar Young Sodium [Moles/Vol] 138 mmol/L Normal 136-145 [facility] Comment on above: Performed By: #### C MP #### [facility] [address] [place] [address] Dr. Juliocesar Young Urea nitrogen [Mass/Vol] 11.0 mg/dL Normal 7.0-18.0 [facility] Comment on above: Performed By: #### C MP #### [facility] [address] [place] [address] Dr. Juliocesar Young Urea nitrogen/Creatinine [Mass ratio] 18.3 mg/mg Normal [facility] Comment on above: Performed By: #### C MP #### [facility] [address] [place] [address] Dr. Juliocesar Young CBC W MANUAL DIFFon 12-13-19 22 ATYPICAL LYMPH # Normal [facility] Comment on above: Performed By: #### U JORI, PHOS, CMP, LDH #### [facility] [address] [address] [address] Juliocesar Young ATYPICAL LYMPH % Normal [facility] Comment on above: Performed By: #### U JORI, PHOS, CMP, LDH #### [facility] [address] [address] [address] Juliocesar Young BAND # Normal 0.0-0.3 [facility] Comment on above: Performed By: #### U JORI, PHOS, CMP, LDH #### [facility] [address] [address] [address] Juliocesar Young BAND % Normal 0-5 [facility] Comment on above: Performed By: #### U JORI, PHOS, CMP, LDH #### [facility] [address] [address] [address] Juliocesar Young BASOM # 0.00 103/ul Normal 0.00-0.10 [facility] Comment on above: Performed By: #### U JOIR, PHOS, CMP, LDH #### [facility] [address] [address] [address] Juliocesar Young BASOM % 0.0 % Critically low 0.2-2.0 [facility] Comment on above: Performed By: #### U JORI, PHOS, CMP, LDH #### [facility] [address] [address] [address] Juliocesar Young BLAST # Normal [facility] Comment on above: Performed By: #### U JOIR, PHOS, CMP, LDH #### [facility] [address] [address] [address] Juliocesar Young BLAST % Normal [facility] Comment on above: Performed By: #### U JORI, PHOS, CMP, LDH #### [facility] [address] [address] [address] Juliocesar Young CORRECTED WBC Normal 4.0-11.0 [facility] Comment on above: Performed By: #### U JORI, PHOS, CMP, LDH #### [facility] [address] [address] [address] Juliocesar Young EOS # 0.00 103/ul Normal 0.00-0.70 [facility] Comment on above: Performed By: #### U JORI, PHOS, CMP, LDH #### [facility] [address] [address] [address] Juliocesar Young EOS% 0.0 % Critically low 0.9-7.0 [facility] Comment on above: Performed By: #### U JORI, PHOS, CMP, LDH #### [facility] [address] [address] [address] Juliocesar Young HCT 44.1 % Normal 36.0-48.0 [facility] Comment on above: Performed By: #### U JORI, PHOS, CMP, LDH #### [facility] [address] [address] [address] Juliocesar Young HGB 14.1 g/dl Normal 12.0-16.0 [facility] Comment on above: Performed By: #### U JORI, PHOS, CMP, LDH #### [facility] [address] [address] [address] Juliocesar Young LYMPHM # 39.95 103/ul Critically high 1.20-3.80 [facility] Comment on above: Performed By: #### U JORI, PHOS, CMP, LDH #### [facility] [address] [address] [address] Juliocesar Young LYMPHM% 85.0 % Critically high 20.5-60.0 [facility] Comment on above: Performed By: #### U JORI, PHOS, CMP, LDH #### [facility] [address] [address] [address] Juliocesar Young MCH 30.1 pg Normal 26.7-34.0 [facility] Comment on above: Performed By: #### U JORI, PHOS, CMP, LDH #### [facility] [address] [address] [address] Juliocesar Young MCHC 32.0 g/dl Normal 29.9-35.2 [facility] Comment on above: Performed By: #### U JORI, PHOS, CMP, LDH #### [facility] [address] [address] [address] Juliocesar Young MCV 94.2 fL Normal 81.0-99.0 [facility] Comment on above: Performed By: #### U JORI, PHOS, CMP, LDH #### [facility] [address] [address] [address] Juliocesar Young METAMYELOCYTE # Normal [facility] Comment on above: Performed By: #### U JORI, PHOS, CMP, LDH #### [facility] [address] [address] [address] Juliocsear Young METAMYELOCYTE % Normal [facility] Comment on above: Performed By: #### U JORI, PHOS, CMP, LDH #### [facility] [address] [address] [address] Juliocesar Young MONOM# 0.94 103/ul Critically high 0.30-0.80 [facility] Comment on above: Performed By: #### U JORI, PHOS, CMP, LDH #### [facility] [address] [address] [address] Juliocesar Young MONOM% 2.0 % Normal 1.7-12.0 [facility] Comment on above: Performed By: #### U JORI, PHOS, CMP, LDH #### [facility] [address] [address] [address] Juliocesar Young MPV 10.6 fL Normal 9.5-13.5 [facility] Comment on above: Performed By: #### U JORI, PHOS, CMP, LDH #### [facility] [address] [address] [address] Juliocesar Young MYELOCYTE # Normal [facility] Comment on above: Performed By: #### U JORI, PHOS, CMP, LDH #### [facility] [address] [address] [address] Juliocesar Young MYELOCYTE % Normal [facility] Comment on above: Performed By: #### U JORI, PHOS, CMP, LDH #### [facility] [address] [address] [address] Juliocesar Young NRBC Normal [facility] Comment on above: Performed By: #### U JORI, PHOS, CMP, LDH #### [facility] [address] [address] [address] uJliocesar Young PLT 202 103/ul Normal 150-450 [facility] Comment on above: Performed By: #### U JORI, PHOS, CMP, LDH #### [facility] [address] [address] [address] Juliocesar Young RBC 4.68 106/ul Normal 4.20-5.40 [facility] Comment on above: Performed By: #### U JORI, PHOS, CMP, LDH #### [facility] [address] [address] [address] Juliocesar Young RDW 14.6 % Normal 11.0-15.0 [facility] Comment on above: Performed By: #### U JORI, PHOS, CMP, LDH #### [facility] [address] [address] [address] Juliocesar Young SEG # 6.11 103/ul Normal 1.40-6.50 [facility] Comment on above: Performed By: #### U JORI, PHOS, CMP, LDH #### [facility] [address] [address] [address] Juliocesar Young SEG % 13.0 % Critically low 43.0-75.0 [facility] Comment on above: Performed By: #### U JORI, PHOS, CMP, LDH #### [facility] [address] [address] [address] Juliocesar Young SMUDGE CELLS SEEN Normal [facility] Comment on above: Performed By: #### U JORI, PHOS, CMP, LDH #### [facility] [address] [address] [address] Juliocesar Young WBC 47.0 103/ul Critically high 4.0-11.0 [facility] Comment on above: Performed By: #### U JORI, PHOS, CMP, LDH #### [facility] [address] [address] [address] Juliocesar Young LDHon 12-12-2021 LDH 165 U/L Normal 81-234 [facility] Comment on above: Performed By: #### L ACTFQ #### [facility] [address] [place] [address] Dr. Juliocesar Young PHOSPHORUSon 12-12-2021 Phosphate [Mass/Vol] 3.0 mg/dL Normal 2.6-4.7 [facility] Comment on above: Performed By: #### L ACTFQ #### [facility] [address] [address] [address] Juliocesar Young PROF 14(COMP METB)on 022 Albumin [Mass/Vol] 3.5 g/dL Normal 3.4-5.0 [facility] Comment on above: Performed By: #### L ACTFQ #### [facility] [address] [place] [address] Dr. Juliocesar Young Albumin/Globulin [Mass ratio] 1.0 {ratio} Normal [facility] Comment on above: Performed By: #### L ACTFQ #### [facility] [address] [place] [address] Dr. Juliocesar Young ALP [Catalytic activity/Vol] 84 U/L Normal 46-116 [facility] Comment on above: Performed By: #### L ACTFQ #### [facility] [address] [place] [address] Dr. Juliocesar Young ALT [Catalytic activity/Vol] 21 U/L Normal 14-59 [facility] Comment on above: Performed By: #### L ACTFQ #### [facility] [address] [address] [address] Juliocesar Young Anion gap [Moles/Vol] 9.3 mmol/L Normal [facility] Comment on above: Performed By: #### L ACTFQ #### [facility] [address] [place] [address] Dr. Juliocesar Young AST [Catalytic activity/Vol] 11 U/L Critically low 15-37 [facility] Comment on above: Performed By: #### L ACTFQ #### [facility] [address] [address] [address] Juliocesar Young Bilirubin [Mass/Vol] 0.5 mg/dL Normal 0.2-1.0 [facility] Comment on above: Performed By: #### L ACTFQ #### [facility] [address] [place] [address] Dr. Juliocesar Young Calcium [Mass/Vol] 8.2 mg/dL Critically low 8.5-10.1 [facility] Comment on above: Performed By: #### L ACTFQ #### [facility] [address] [place] [address] Dr. Juliocesar Young Chloride [Moles/Vol] 106 mmol/L Normal 98-107 [facility] Comment on above: Performed By: #### L ACTFQ #### [facility] [address] [place] [address] Dr. Juliocesar Young CO2 [Moles/Vol] 24.7 mmol/L Normal 21.0-32.0 [facility] Comment on above: Performed By: #### L ACTFQ #### [facility] [address] [place] [address] Dr. Juliocesar Young Creatinine [Mass/Vol] 0.53 mg/dL Critically low 0.55-1.02 [facility] Comment on above: Performed By: #### L ACTFQ #### [facility] [address] [place] [address] Dr. Juliocesar Young EGFR-AF RUSSIAN >60 Normal >=60 [facility] Comment on above: Performed By: #### L ACTFQ #### [facility] [address] [place] [address] Dr. Juliocesar Young EGFR-NON AF RUSSIAN >60 Normal >=60 [facility] Comment on above: Performed By: #### L ACTFQ #### [facility] [address] [place] [address] Dr. Juliocesar Young Globulin (S) [Mass/Vol] 3.6 g/dL Normal [facility] Comment on above: Performed By: #### L ACTFQ #### [facility] [address] [address] [address] Juliocesar Young Glucose [Mass/Vol] 102 mg/dL Normal 74-106 [facility] Comment on above: Performed By: #### L ACTFQ #### [facility] [address] [address] [address] Juliocesar Young Potassium [Moles/Vol] 4.0 mmol/L Normal 3.5-5.1 [facility] Comment on above: Performed By: #### L ACTFQ #### [facility] [address] [address] [address] Juliocesar Young Protein [Mass/Vol] 7.1 g/dL Normal 6.4-8.2 [facility] Comment on above: Performed By: #### L ACTFQ #### [facility] [address] [place] [address] Dr. Juliocesar Young Sodium [Moles/Vol] 136 mmol/L Normal 136-145 [facility] Comment on above: Performed By: #### L ACTFQ #### [facility] [address] [place] [address] Dr. Juliocesar Young Urea nitrogen [Mass/Vol] 9.0 mg/dL Normal 7.0-18.0 [facility] Comment on above: Performed By: #### L ACTFQ #### [facility] [address] [place] [address] Dr. Juliocesar Young Urea nitrogen/Creatinine [Mass ratio] 17.0 mg/mg Normal [facility] Comment on above: Performed By: #### L ACTFQ #### [facility] [address] [place] [address] Dr. Juliocesar Young URIC ACID SERUMon 12-12-2021 Urate [Mass/Vol] 2.3 mg/dL Critically low 2.6-6.0 [facility] Comment on above: Performed By: #### L ACTFQ #### [facility] [address] [place] [address] Dr. Juliocesar Young HEPATITIS B CORE ANTIBODYon 12-05-2021 HEP B CORE AB Non-Reactive Normal NONREACTIVE The [facility] Comment on above: Performed By: #### 3 [id number] #### [facility] [address] [place] [address], [facility] CBC W MANUAL DIFFon 12-04-19 22 ATYPICAL LYMPH # Normal [facility] Comment on above: Performed By: #### U JORI, PHOS, CMP, LDH #### [facility] [address] [place] [address] Dr. Juliocesar Young ATYPICAL LYMPH % Normal [facility] Comment on above: Performed By: #### U JORI, PHOS, CMP, LDH #### [facility] [address] [place] [address] Dr. Juliocesar Young BAND # 0.0 103/ul Normal 0.0-0.3 [facility] Comment on above: Performed By: #### U JORI, PHOS, CMP, LDH #### [facility] [address] [place] [address] Dr. Juliocesar Young BAND % 0 % Normal 0-5 [facility] Comment on above: Performed By: #### U JORI, PHOS, CMP, LDH #### [facility] [address] [place] [address] Dr. Juliocesar Young BASOM # 0.00 103/ul Normal 0.00-0.10 [facility] Comment on above: Performed By: #### U JORI, PHOS, CMP, LDH #### [facility] [address] [place] [address] Dr. Juliocesar Young BASOM % 0.0 % Critically low 0.2-2.0 [facility] Comment on above: Performed By: #### U JORI, PHOS, CMP, LDH #### [facility] [address] [place] [address] Dr. Juliocesar Young BLAST # Normal [facility] Comment on above: Performed By: #### U JORI, PHOS, CMP, LDH #### [facility] [address] [place] [address] Dr. Juliocesar Young BLAST % Normal [facility] Comment on above: Performed By: #### U JORI, PHOS, CMP, LDH #### [facility] [address] [address] [address] Juliocesar Young CORRECTED WBC Normal 4.0-11.0 [facility] Comment on above: Performed By: #### U JORI, PHOS, CMP, LDH #### [facility] [address] [address] [address] Juliocesar Young EOS # 0.00 103/ul Normal 0.00-0.70 [facility] Comment on above: Performed By: #### U JORI, PHOS, CMP, LDH #### [facility] [address] [address] [address] Juliocesar Young EOS% 0.0 % Critically low 0.9-7.0 [facility] Comment on above: Performed By: #### U JORI, PHOS, CMP, LDH #### [facility] [address] [address] [address] Juliocesar Young HCT 44.6 % Normal 36.0-48.0 [facility] Comment on above: Performed By: #### U JORI, PHOS, CMP, LDH #### [facility] [address] [address] [address] Juliocesar Young HGB 14.4 g/dl Normal 12.0-16.0 [facility] Comment on above: Performed By: #### U JORI, PHOS, CMP, LDH #### [facility] [address] [address] [address] Juliocesar Young LYMPHM # 53.68 103/ul Critically high 1.20-3.80 [facility] Comment on above: Performed By: #### U JORI, PHOS, CMP, LDH #### [facility] [address] [address] [address] Juliocesar Young LYMPHM% 88.0 % Critically high 20.5-60.0 [facility] Comment on above: Performed By: #### U JORI, PHOS, CMP, LDH #### [facility] [address] [address] [address] Juliocesar Young MCH 29.9 pg Normal 26.7-34.0 [facility] Comment on above: Performed By: #### U JORI, PHOS, CMP, LDH #### [facility] [address] [address] [address] Juliocesar Young MCHC 32.3 g/dl Normal 29.9-35.2 [facility] Comment on above: Performed By: #### U JORI, PHOS, CMP, LDH #### [facility] [address] [address] [address] Juliocesar Young MCV 92.5 fL Normal 81.0-99.0 [facility] Comment on above: Performed By: #### U JORI, PHOS, CMP, LDH #### [facility] [address] [place] [address] Dr. Juliocesar Young METAMYELOCYTE # Normal [facility] Comment on above: Performed By: #### U JORI, PHOS, CMP, LDH #### [facility] [address] [place] [address] Dr. Juliocesar Young METAMYELOCYTE % Normal [facility] Comment on above: Performed By: #### U JORI, PHOS, CMP, LDH #### [facility] [address] [place] [address] Dr. Juliocesar Young MONOM# 0.00 103/ul Critically low 0.30-0.80 [facility] Comment on above: Performed By: #### U JORI, PHOS, CMP, LDH #### [facility] [address] [place] [address] Dr. Juliocesar Young MONOM% 0.0 % Critically low 1.7-12.0 [facility] Comment on above: Performed By: #### U JORI, PHOS, CMP, LDH #### [facility] [address] [place] [address] Dr. Juliocesar Young MPV 10.4 fL Normal 9.5-13.5 [facility] Comment on above: Performed By: #### U JORI, PHOS, CMP, LDH #### [facility] [address] [place] [address] Dr. Juliocesar Young MYELOCYTE # Normal [facility] Comment on above: Performed By: #### U JORI, PHOS, CMP, LDH #### [facility] [address] [address] [address] Juliocesar Young MYELOCYTE % Normal [facility] Comment on above: Performed By: #### U JORI, PHOS, CMP, LDH #### [facility] [address] [address] [address] Juliocesar Young NRBC Normal [facility] Comment on above: Performed By: #### U JORI, PHOS, CMP, LDH #### [facility] [address] [address] [address] Juliocesar Young PLT 224 103/ul Normal 150-450 [facility] Comment on above: Performed By: #### U JORI, PHOS, CMP, LDH #### [facility] [address] [address] [address] Juliocesar Young RBC 4.82 106/ul Normal 4.20-5.40 [facility] Comment on above: Performed By: #### U JORI, PHOS, CMP, LDH #### [facility] [address] [address] [address] Juliocesar Young RDW 14.4 % Normal 11.0-15.0 [facility] Comment on above: Performed By: #### U JORI, PHOS, CMP, LDH #### [facility] [address] [address] [address] Juliocesar Young SEG # 7.32 103/ul Critically high 1.40-6.50 [facility] Comment on above: Performed By: #### U JORI, PHOS, CMP, LDH #### [facility] [address] [address] [address] Juliocesar Young SEG % 12.0 % Critically low 43.0-75.0 [facility] Comment on above: Performed By: #### U JORI, PHOS, CMP, LDH #### [facility] [address] [address] [address] Juliocesar Young WBC 61.0 103/ul Critically high 4.0-11.0 [facility] Comment on above: Performed By: #### U JORI, PHOS, CMP, LDH #### [facility] [address] [address] [address] Juliocesar Young LDHon 12-03-2021 LDH 183 U/L Normal 81-234 [facility] Comment on above: Performed By: #### L ACTFQ #### [facility] [address] [place] [address] Dr. Juliocesar Young PHOSPHORUSon 12-03-2021 Phosphate [Mass/Vol] 3.3 mg/dL Normal 2.6-4.7 [facility] Comment on above: Performed By: #### U JORI, PHOS, CMP, LDH #### [facility] [address] [place] [address] Dr. Juliocesar Young PROF 14(COMP METB)on 022 Albumin [Mass/Vol] 3.7 g/dL Normal 3.4-5.0 [facility] Comment on above: Performed By: #### L ACTFQ #### [facility] [address] [place] [address] Dr. Juliocesar Young Albumin/Globulin [Mass ratio] 1.0 {ratio} Normal [facility] Comment on above: Performed By: #### L ACTFQ #### [facility] [address] [place] [address] Dr. Juliocesar Young ALP [Catalytic activity/Vol] 82 U/L Normal 46-116 [facility] Comment on above: Performed By: #### L ACTFQ #### [facility] [address] [place] [address] Dr. Juliocesar Young ALT [Catalytic activity/Vol] 23 U/L Normal 14-59 [facility] Comment on above: Performed By: #### L ACTFQ #### [facility] [address] [place] [address] Dr. Juliocesar Young Anion gap [Moles/Vol] 14.0 mmol/L Normal [facility] Comment on above: Performed By: #### L ACTFQ #### [facility] [address] [place] [address] Dr. Juliocesar Young AST [Catalytic activity/Vol] 12 U/L Critically low 15-37 [facility] Comment on above: Performed By: #### L ACTFQ #### [facility] [address] [place] [address] Dr. Juliocesar Young Bilirubin [Mass/Vol] 0.4 mg/dL Normal 0.2-1.0 [facility] Comment on above: Performed By: #### L ACTFQ #### [facility] [address] [address] [address] Juliocesar Young Calcium [Mass/Vol] 8.6 mg/dL Normal 8.5-10.1 [facility] Comment on above: Performed By: #### L ACTFQ #### [facility] [address] [place] [address] Dr. Juliocesar Young Chloride [Moles/Vol] 104 mmol/L Normal 98-107 [facility] Comment on above: Performed By: #### L ACTFQ #### [facility] [address] [place] [address] Dr. Juliocesar Young CO2 [Moles/Vol] 26.2 mmol/L Normal 21.0-32.0 [facility] Comment on above: Performed By: #### L ACTFQ #### [facility] [address] [place] [address] Dr. Juliocesar Young Creatinine [Mass/Vol] 0.54 mg/dL Critically low 0.55-1.02 [facility] Comment on above: Performed By: #### L ACTFQ #### [facility] [address] [place] [address] Dr. Juliocesar Young EGFR-AF RUSSIAN >60 Normal >=60 [facility] Comment on above: Performed By: #### L ACTFQ #### [facility] [address] [place] [address] Dr. Juliocesar Young EGFR-NON AF RUSSIAN >60 Normal >=60 [facility] Comment on above: Performed By: #### L ACTFQ #### [facility] [address] [place] [address] Dr. Juliocesar Young Globulin (S) [Mass/Vol] 3.7 g/dL Normal [facility] Comment on above: Performed By: #### L ACTFQ #### [facility] [address] [place] [address] Dr. Juliocesar Young Glucose [Mass/Vol] 95 mg/dL Normal 74-106 [facility] Comment on above: Performed By: #### L ACTFQ #### [facility] [address] [place] [address] Dr. Juliocesar Young Potassium [Moles/Vol] 4.2 mmol/L Normal 3.5-5.1 [facility] Comment on above: Performed By: #### L ACTFQ #### [facility] [address] [place] [address] Dr. Juliocesar oYung Protein [Mass/Vol] 7.4 g/dL Normal 6.1-8.2 [facility] Comment on above: Performed By: #### L ACTFQ #### [facility] [address] [place] [address] Dr. Juliocesar Young Sodium [Moles/Vol] 140 mmol/L Normal 136-145 [facility] Comment on above: Performed By: #### L ACTFQ #### [facility] [address] [place] [address] Dr. Juliocesar Young Urea nitrogen [Mass/Vol] 9.0 mg/dL Normal 7.0-18.0 [facility] Comment on above: Performed By: #### L ACTFQ #### [facility] [address] [place] [address] Dr. Juliocesar Young Urea nitrogen/Creatinine [Mass ratio] 16.7 mg/mg Normal [facility] Comment on above: Performed By: #### L ACTFQ #### [facility] [address] [place] [address] Dr. Juliocesar Young URIC ACID SERUMon 12-03-2021 Urate [Mass/Vol] 1.9 mg/dL Critically low 2.5-6.2 [facility] Comment on above: Performed By: #### U JORI, PHOS, CMP, LDH #### [facility] [address] [address] [address] Juliocesar Young HEPATITIS B SURFACE ANTIBODY QUANTon 11-28-2021 HEP B SURF AB 15.43 mIU/ml Normal The [facility] Comment on above: Result Comment: INTE RPRETATION: NONREACTIVE<8.00 mIU/mL INDETERMINATE8.00 - 12.00 mIU/mL REACTIVE>12 mIU/mL Performed By: #### 4 [id number] #### [facility] [address] [facility]. [address] HEPATITIS B SURFACE ANTIGEN QUALon 11-28-2021 HEP B SURF AG QUAL Non-Reactive Normal NONREACTIVE The [facility] Comment on above: Performed By: #### 3 1400 #### [facility] [address] CBC W MANUAL DIFFon 11-26-19 22 ATYPICAL LYMPH # Normal [facility] Comment on above: Performed By: #### U JORI, PHOS, CMP, LDH #### [facility] [address] [address] [address] Juliocesar Young ATYPICAL LYMPH % Normal [facility] Comment on above: Performed By: #### U JORI, PHOS, CMP, LDH #### [facility] [address] [address] [address] Juliocesar Young BAND # 0.0 103/ul Normal 0.0-0.3 [facility] Comment on above: Performed By: #### U JORI, PHOS, CMP, LDH #### [facility] [address] [address] [address] Juliocesar Young BAND % 0 % Normal 0-5 [facility] Comment on above: Performed By: #### U JORI, PHOS, CMP, LDH #### [facility] [address] [address] [address] Juliocesar Young BASOM # 0.00 103/ul Normal 0.00-0.10 [facility] Comment on above: Performed By: #### U JORI, PHOS, CMP, LDH #### [facility] [address] [address] [address] Juliocesar Young BASOM % 0.0 % Critically low 0.2-2.0 [facility] Comment on above: Performed By: #### U JORI, PHOS, CMP, LDH #### [facility] [address] [place] [address] Dr. Juliocesar Young BLAST # Normal [facility] Comment on above: Performed By: #### U JORI, PHOS, CMP, LDH #### [facility] [address] [address] [address] Juliocesar Young BLAST % Normal [facility] Comment on above: Performed By: #### U JORI, PHOS, CMP, LDH #### [facility] [address] [place] [address] Dr. Juliocesar Young CORRECTED WBC Normal 4.0-11.0 [facility] Comment on above: Performed By: #### U JORI, PHOS, CMP, LDH #### [facility] [address] [address] [address] Juliocesar Young EOS # 0.00 103/ul Normal 0.00-0.70 [facility] Comment on above: Performed By: #### U JORI, PHOS, CMP, LDH #### [facility] [address] [place] [address] Dr. Juliocesar Young EOS% 0.0 % Critically low 0.9-7.0 [facility] Comment on above: Performed By: #### U JORI, PHOS, CMP, LDH #### [facility] [address] [place] [address] Dr. Juliocesar Young HCT 41.6 % Normal 36.0-48.0 [facility] Comment on above: Performed By: #### U JORI, PHOS, CMP, LDH #### [facility] [address] [place] [address] Dr. Juliocesar Young HGB 13.6 g/dl Normal 12.0-16.0 [facility] Comment on above: Performed By: #### U JORI, PHOS, CMP, LDH #### [facility] [address] [place] [address] Dr. Juliocesar Young LYMPHM # 83.42 103/ul Critically high 1.20-3.80 The [facility] Comment on above: Performed By: #### U JORI, PHOS, CMP, LDH #### [facility] [address] [address] [address] Juliocesar Young LYMPHM% 97.0 % Critically high 20.5-60.0 The [facility] Comment on above: Performed By: #### U JORI, PHOS, CMP, LDH #### [facility] [address] [address] [address] Juliocesar Young MCH 30.6 pg Normal 26.7-34.0 [facility] Comment on above: Performed By: #### U JORI, PHOS, CMP, LDH #### [facility] [address] [address] [address] Juliocesar Young MCHC 32.7 g/dl Normal 29.9-35.2 The [facility] Comment on above: Performed By: #### U JORI, PHOS, CMP, LDH #### [facility] [address] [address] [address] Juliocesar Young MCV 93.7 fL Normal 81.0-99.0 The [facility] Comment on above: Performed By: #### U JORI, PHOS, CMP, LDH #### [facility] [address] [address] [address] Juliocesar Young METAMYELOCYTE # Normal The [facility] Comment on above: Performed By: #### U JORI, PHOS, CMP, LDH #### [facility] [address] [address] [address] Juliocesar Young METAMYELOCYTE % Normal The [facility] Comment on above: Performed By: #### U JORI, PHOS, CMP, LDH #### [facility] [address] [address] [address] Juliocesar Young MONOM# 0.00 103/ul Critically low 0.30-0.80 The [facility] Comment on above: Performed By: #### U JORI, PHOS, CMP, LDH #### [facility] [address] [address] [address] Juliocesar Young MONOM% 0.0 % Critically low 1.7-12.0 [facility] Comment on above: Performed By: #### U JORI, PHOS, CMP, LDH #### [facility] [address] [place] [address] Dr. Juliocesar Young MPV 10.2 fL Normal 9.5-13.5 [facility] Comment on above: Performed By: #### U JORI, PHOS, CMP, LDH #### [facility] [address] [address] [address] Juliocesar Young MYELOCYTE # Normal [facility] Comment on above: Performed By: #### U JORI, PHOS, CMP, LDH #### [facility] [address] [place] [address] Dr. Juliocesar Young MYELOCYTE % Normal [facility] Comment on above: Performed By: #### U JORI, PHOS, CMP, LDH #### [facility] [address] [place] [address] Dr. Juliocesar Young NRBC Normal [facility] Comment on above: Performed By: #### U JORI, PHOS, CMP, LDH #### [facility] [address] [place] [address] Dr. Juliocesar Young PLT 194 103/ul Normal 150-450 [facility] Comment on above: Performed By: #### U JORI, PHOS, CMP, LDH #### [facility] [address] [place] [address] Dr. Juliocesar Young RBC 4.44 106/ul Normal 4.20-5.40 [facility] Comment on above: Performed By: #### U JORI, PHOS, CMP, LDH #### [facility] [address] [place] [address] Dr. Juliocesar Young RDW 14.0 % Normal 11.0-15.0 [facility] Comment on above: Performed By: #### U JORI, PHOS, CMP, LDH #### [facility] [address] [place] [address] Dr. Juliocesar Young SEG # 2.58 103/ul Normal 1.40-6.50 [facility] Comment on above: Performed By: #### U JORI, PHOS, CMP, LDH #### [facility] [address] [address] [address] Juliocesar Young SEG % 3.0 % Critically low 43.0-75.0 [facility] Comment on above: Performed By: #### U JORI, PHOS, CMP, LDH #### [facility] [address] [address] [address] Juliocesar Young WBC 86.0 103/ul Critically high 4.0-11.0 [facility] Comment on above: Performed By: #### U JORI, PHOS, CMP, LDH #### [facility] [address] [address] [address] Juliocesar Young PERIPHERAL SMEARon 2 Pathologist Cyto stain Nom (Cvx/Vag) [ID] DR. JANESSA PRYOR Normal [facility] Comment on above: Result Comment: Leuk ocyosis with absloute lymphocytosis and smudge cells. Some lymphocytes show increased nuclear size but still with coarse chromatin. Definite prolymphocytes are not seen. If lymphocytosis persist longer than six months further evaluation to exclude a possible lymphoproliferative disorder may be indicated. Clinical correlation is suggested. Performed By: #### U JORI, PHOS, CMP, LDH #### [facility] [address] [address] [address] Juliocesar Young PROF 14(COMP METB)on 022 Albumin [Mass/Vol] 3.6 g/dL Normal 3.4-5.0 [facility] Comment on above: Performed By: #### C MP #### [facility] [address] [address] [address] Juliocesar Young Albumin/Globulin [Mass ratio] 1.0 {ratio} Normal [facility] Comment on above: Performed By: #### C MP #### [facility] [address] [address] [address] Juliocesar Young ALP [Catalytic activity/Vol] 94 U/L Normal 46-116 [facility] Comment on above: Performed By: #### C MP #### [facility] [address] [address] [address] Juliocesar Young ALT [Catalytic activity/Vol] 26 U/L Normal 14-59 [facility] Comment on above: Performed By: #### C MP #### [facility] [address] [address] [address] Juliocesar Young Anion gap [Moles/Vol] 12.0 mmol/L Normal [facility] Comment on above: Performed By: #### C MP #### [facility] [address] [address] [address] Juliocesar Young AST [Catalytic activity/Vol] 17 U/L Normal 15-37 [facility] Comment on above: Performed By: #### C MP #### [facility] [address] [place] [address] Dr. Juliocesar Young Bilirubin [Mass/Vol] 0.6 mg/dL Normal 0.2-1.3 [facility] Comment on above: Performed By: #### C MP #### [facility] [address] [place] [address] Dr. Juliocesar Young Calcium [Mass/Vol] 8.3 mg/dL Critically low 8.5-10.1 Th [facility] Comment on above: Performed By: #### C MP #### [facility] [address] [place] [address] Dr. Juliocesar Young Chloride [Moles/Vol] 105 mmol/L Normal 98-107 The [facility] Comment on above: Performed By: #### C MP #### [facility] [address] [address] [address] Juliocesar Young CO2 [Moles/Vol] 26.3 mmol/L Normal 22.0-30.0 The [facility] Comment on above: Performed By: #### C MP #### [facility] [address] [place] [address] Dr. Juliocesar Young Creatinine [Mass/Vol] 0.56 mg/dL Normal 0.52-1.04 [facility] Comment on above: Performed By: #### C MP #### [facility] [address] [address] [address] Juliocesar Young EGFR-AF RUSSIAN >60 Normal >=60 The [facility] Comment on above: Performed By: #### C MP #### [facility] [address] [address] [address] Juliocesar Young EGFR-NON AF RUSSIAN >60 Normal >=60 [facility] Comment on above: Performed By: #### C MP #### [facility] [address] [address] [address] Juliocesar Young Globulin (S) [Mass/Vol] 3.7 g/dL Normal [facility] Comment on above: Performed By: #### C MP #### [facility] [address] [address] [address] Juliocesar Young Glucose [Mass/Vol] 103 mg/dL Normal 74-106 [facility] Comment on above: Performed By: #### C MP #### [facility] [address] [address] [address] Juliocesar Young Potassium [Moles/Vol] 4.3 mmol/L Normal 3.4-5.0 [facility] Comment on above: Performed By: #### C MP #### [facility] [address] [place] [address] Dr. Juliocesar Young Protein [Mass/Vol] 7.3 g/dL Normal 6.1-8.2 The [facility] Comment on above: Performed By: #### C MP #### [facility] [address] [address] [address] Juliocesar Young Sodium [Moles/Vol] 139 mmol/L Normal 137-145 The [facility] Comment on above: Performed By: #### C MP #### [facility] [address] [address] [address] Juliocesar Young Urea nitrogen [Mass/Vol] 10.0 mg/dL Normal 7.0-18.0 [facility] Comment on above: Performed By: #### C MP #### [facility] [address] [address] [address] Juliocesar Young Urea nitrogen/Creatinine [Mass ratio] 17.9 mg/mg Normal The [facility] Comment on above: Performed By: #### C #### [facility] [address] [address] [address] Juliocesar Young NM PET CT WHOLE BODYon 10-[address] WHOLE BODY [facility] Department of Radiology [address] [place] [address] ===== Patient Name: DIAMOND GUERRERO : 1975 Sex: F Age: Race: White Pt. 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 Electronically signed: Lissa Luther. Transcribed by: [email or web address], User Resident: Electronically Signed by: LISSA LUTHER @ 10/03/2021 03:35 PM Normal The [facility] Comment on above: Order Comment: , Exp eriencing increased sweating and hot flashes , Experiencing increased sweating and hot flashes , , , Ordering Provider - BOONE SALINAS MD , POC GLUCOSE NCon 10-03-2021 Glucose [Mass/Vol] 98 mg/dL Normal 70-100 The [facility] Comment on above: Performed By: #### 8 4513 #### [id number] [place] [address] CT CHEST W CONTRASTon 2021 CT CHEST W CONTRAST [facility] Department of Radiology [address] [place] [address] ===== Patient Name: DIAMOND GUERRERO : 1975 Sex: F Age: Race: White Pt. Location: Patient Status: D Ordered Date: 08/01/2021 11:40:00 AM Completed Date: 09/06/2021 09:27 AM Requesting Provider: BOONE SALINAS Attending Provider: BOONE SALINAS Report Copy To: Signs & Symptoms: R91.8 Other nonspecific abnormal finding of lung field I10 Lesion of lung History: [place] Is patient on meds for HTN or [...] stability. Electronically signed: Logan Wilson. Transcribed by: [email or web address], User Resident: Electronically Signed by: LOGAN WILSON @ 09/07/2021 09:32 AM Normal The [facility] Comment on above: Order Comment: in 4 months compare to previous, CT ABDOMEN AND PELVIS W IV C [facility] 07-26-2021 CT ABDOMEN AND PELVIS W IV CONTRAST [facility] Department of Radiology [address] [place] [id number] ===== Patient Name: DIAMOND GUERRERO : [...] cyst. Electronically signed: Angeles Hutchison. Transcribed by: [email or web address], User Resident: Electronically Signed by: ANGELES HUTCHISON @ 07/26/2021 02:12 PM Normal The [facility] CT CHEST W CONTRASTon 2020 CT CHEST W CONTRAST [facility] Department of Radiology [address] [place] [address] ===== Patient Name: DIAMOND GUERRERO [...] achievable Electronically signed: Lissa Luther. Transcribed by: [email or web address], User Resident: Electronically Signed by: LISSA LUTHER @ 07/26/2021 01:10 PM Normal The [facility] CT SOFT TISSUE NECK W CONTRA STon 07-26-2021 CT SOFT TISSUE NECK W CONTRAST [facility] Department of Radiology [address] [place] [id number] ===== Patient Name: DIAMOND GUERRERO : [...] well. Electronically signed: Angeles Hutchison. Transcribed by: [email or web address], User Resident: Electronically Signed by: ANGELES HUTCHISON @ 07/26/2021 02:04 PM Normal The [facility] CBC W/DIFFon 07-06-2021 ABS NEUTROPHILS 10.6 10*3/uL High 1.6-7.6 The [facility] Comment on above: Performed By: #### 3 1513, 52027 #### [facility] [address] [place] [address], [facility] Basophils (Bld) [#/Vol] 0.0 10*3/uL Normal 0.0-0.2 The [facility] Comment on above: Performed By: #### 3 1513, 81452 #### [facility] [address] [facility] [place] [address], [facility] Basophils/100 WBC (Bld) 0.0 % Normal 0.0-1.0 The [facility] Comment on above: Performed By: #### 3 1513, 44299 #### [facility] [address] [place] [address], [facility] Eosinophils (Bld) [#/Vol] 0.3 10*3/uL Normal 0.0-0.5 The [facility] Comment on above: Performed By: #### 3 1513, 85617 #### [facility] [address] [place] [address], [facility] Eosinophils/100 WBC (Bld) 1.0 % Normal 0.0-6.0 The [facility] Comment on above: Performed By: #### 3 1513, 41517 #### [facility] [address] [place] [address], [place] Erythrocyte distribution width (RBC) [Ratio] 12.3 % Normal 11.5-15.0 The [facility] Comment on above: Performed By: #### 3 1513, 00153 #### [facility] [address] [place] [address], [facility] GIANT PLATELETS Present Normal The [facility] Comment on above: Performed By: #### 3 1513, 27913 #### [facility] [address] [place] [address], [facility] Hematocrit (Bld) [Volume fraction] 44.6 % Normal 36.0-45.0 The [facility] Comment on above: Performed By: #### 3 151, 68079 #### [facility] [address] [place] [address], [facility] Hemoglobin (Bld) [Mass/Vol] 14.5 g/dL Normal 12.0-15.0 The [facility] Comment on above: Performed By: #### 3 151, 78212 #### [facility] [address] [place] [address], [place] Lymphocytes (Bld) [#/Vol] 19.2 10*3/uL High 1.2-4.0 The [facility] Comment on above: Performed By: #### 3 1513, 11227 #### [facility] [address] [place] [address], [place] Lymphocytes/100 WBC (Bld) 62.6 % High 20.0-45.0 The [facility] Comment on above: Performed By: #### 3 1513, 26562 #### [facility] [address] [place] [address], [facility] MCH (RBC) [Entitic mass] 29.6 pg Normal 27.0-33.0 The [facility] Comment on above: Performed By: #### 3 1513, 35041 #### [facility] [address] [facility] [place] [address], [facility] MCHC (RBC) [Mass/Vol] 32.5 g/dL Normal 32.0-35.0 The [facility] Comment on above: Performed By: #### 3 1513, 51276 #### [facility] [address] [facility] [place] [address], [facility] MCV (RBC) [Entitic vol] 91.0 fL Normal 82.0-98.0 The [facility] Comment on above: Performed By: #### 3 151, 36494 #### [facility] [address] [place] [address], [facility] Monocytes (Bld) [#/Vol] 0.6 10*3/uL Normal 0.1-1.0 The [facility] Comment on above: Performed By: #### 3 151, 29480 #### [facility] [address] [facility] [place] [address], [facility] MONOS 2.0 % Low 5.0-12.0 The [facility] Comment on above: Performed By: #### 3 1513, 20766 #### [facility] [address] [facility] [place] [address], [facility] Neutrophils/100 WBC (Bld) 34.4 % Low 40.0-72.0 The [facility] Comment on above: Performed By: #### 3 151, 77892 #### [facility] [address] [facility] [place] [address], [facility] Nucleated RBC/100 WBC (Bld) [Ratio] 0 % Normal 0-0 The [facility] Comment on above: Performed By: #### 3 151, 42136 #### [facility] [address] [facility] [place] [address], [facility] OTHER 1 Checked by Eve Crawford M.D. Normal The [facility] Comment on above: Result Comment: Resu lt changed by RAHEL on 07/07/2021 09:55. The previous value was Preliminary report; verified report to follow. Performed By: #### 3 1513, 61525 #### [facility] [address] [facility] [place] [address], [facility] PLAT CNT 211 10*3/uL Normal 150-400 The [facility] Comment on above: Performed By: #### 3 1513, 93902 #### [facility] [address] [facility] [place] [address], [facility] RBC (Bld) [#/Vol] 4.90 10*6/uL Normal 3.80-5.00 The [facility] Comment on above: Performed By: #### 3 1513, 73192 #### [facility] [address] [facility] [place] [address], [facility] SMUDGE CELLS Present Normal The [facility] Comment on above: Performed By: #### 3 1513, 93038 #### [facility] [address] [facility] [place] [address], [facility] WBC (Bld) [#/Vol] 30.69 10*3/uL High 4.00-10.60 The [facility] Comment on above: Performed By: #### 3 1513, 48884 #### [facility] [address] [facility] [place] [address], [facility] COMP METABOLIC PANELon 07-06 Albumin [Mass/Vol] 4.3 g/dL Normal 3.5-5.7 The [facility] Comment on above: Performed By: #### 1 0062, 78543 #### [facility] [address] [facility] [place] [address], [facility] ALKALINE PHOSPH 91 IU/L Normal 34-104 The [facility] Comment on above: Performed By: #### 1 61, 83903 #### [facility] [address] [place] [address], [place] ALT [Catalytic activity/Vol] 12 U/L Normal 7-52 The [facility] Comment on above: Performed By: #### 1 61, 42989 #### [facility] [address] [place] [address], [place] AST [Catalytic activity/Vol] 14 U/L Normal 13-39 The [facility] Comment on above: Performed By: #### 1 61, 37726 #### [facility] [address] [place] [address], [place] Bilirubin [Mass/Vol] 0.4 mg/dL Normal 0.3-1.0 The [facility] Comment on above: Performed By: #### 1 61, 97697 #### [facility] [address] [place] [address], [place] Calcium [Mass/Vol] 8.9 mg/dL Normal 8.6-10.3 The [facility] Comment on above: Performed By: #### 1 61, 24696 #### [facility] [address] [place] [address], [place] Chloride [Moles/Vol] 107 mmol/L Normal 98-107 The [facility] Comment on above: Performed By: #### 1 61, 37655 #### [facility] [address] [place] [address], [place] CO2 [Moles/Vol] 22 mmol/L Normal 21-31 The [facility] Comment on above: Performed By: #### 1 61, 60357 #### [facility] [address] [place] [address], [place] Creatinine [Mass/Vol] 0.58 mg/dL Low 0.60-1.20 The [facility] Comment on above: Performed By: #### 1 61, 89420 #### [facility] [address] [place] [address], [place] GFR/1.73 sq M.predicted among blacks MDRD (S/P/Bld) [Vol rate/Area] mL/min/{1.73_m2} Normal >60 The [facility] Comment on above: Performed By: #### 1 61, 85628 #### [facility] [address] [place] [address], [place] GFR/1.73 sq M.predicted among non-blacks MDRD (S/P/Bld) [Vol rate/Area] mL/min/{1.73_m2} Normal >60 The [facility] Comment on above: Performed By: #### 1 61, 15349 #### [facility] [address] [place] [address], [place] Glucose [Mass/Vol] 87 mg/dL Normal 70-100 The [facility] Comment on above: Performed By: #### 1 61, 39911 #### [facility] [address] [place] [address], [place] Potassium [Moles/Vol] 4.2 mmol/L Normal 3.5-5.1 The [facility] Comment on above: Performed By: #### 1 61, 73748 #### [facility] [address] [place] [address], [place] Protein [Mass/Vol] 6.9 g/dL Normal 6.0-8.3 The [facility] Comment on above: Performed By: #### 1 61, 18906 #### [facility] [address] [place] [address], [place] Sodium [Moles/Vol] 138 mmol/L Normal 136-145 The [facility] Comment on above: Performed By: #### 1 61, 57938 #### [facility] [address] [place] [address], [place] Urea nitrogen [Mass/Vol] 16 mg/dL Normal 7-25 The [facility] Comment on above: Performed By: #### 1 0062, 66769 #### [facility] [address] [place] [address], [facility] HEMATOLOGY COMPLETE EVAL[facility]ATI [facility] RESULT Results to be mailed directly to physician's office by reference lab. Normal The [facility] Comment on above: Result Comment: Test performed by [facility] * [address] [place] [address], [address] * [place], [place] * [phone] International Logistics Coordinator: Anupam Beck M.D. RESULTS FAXED TO [phone] Performed By: #### 3 1839 #### [facility] [address] [facility] [place] [address], [facility] HEMOGRAM VIRY POCon 07-06-20 21 ABS NEUT VIRY POC 5.4 10*3/uL Normal 1.6-7.6 The [facility] Comment on above: Performed By: #### 3 1513, 66918 #### [facility] [address] [address], [facility] Hematocrit (Bld) [Volume fraction] 43.6 % Normal 36.0-45.0 The [facility] Comment on above: Performed By: #### 3 1513, [id number] #### [facility] [address] [place] [address], [facility] Hemoglobin (Bld) [Mass/Vol] 14.6 g/dL Normal 12.0-15.0 The [facility] Comment on above: Performed By: #### 3 1513, [id number] #### [facility] [address] [place] [address], [facility] PLAT CNT VIRY POC 205 10*3/uL Normal 150-400 The [facility] Comment on above: Performed By: #### 3 1513, [id number] #### [facility] [address] [place] [address], [place] WBC (Bld) [#/Vol] 29.9 10*3/uL High 4.0-10.6 The [facility] Comment on above: Performed By: #### 3 1513, [id number] #### [facility] [address] [place] [address], [facility] LDH BLOODon 07-06-2021 LDH 183 Units/L Normal 140-271 The [facility] Comment on above: Performed By: #### 1 0062, [id number] #### [facility] [address] [place] [address], [facility] PROTEIN ELECT Damian 07-06-2021 Protein [Mass/Vol] 6.8 g/dL Normal 6.0-8.3 The [facility] Comment on above: Performed By: #### 4 1661 #### [facility] [address] [place] [address], [facility] PROTEIN ELECT Normal The [facility] Comment on above: Result Comment: Norm al Pattern. Prominent albumin peak is seen along with normal fractions of alpha 1, alpha 2, beta and gamma globulins. SEE SEPARATE REPORT Performed By: #### 4 1661 #### [facility] [address] Vital Signs Date Time Vital Sign Value Performing Clinician Facility 02-22-2024 11:13 Body height 172.72 cm [facility] 02-22-2024 11:13040 Body mass index (BMI) [Ratio] 34.9 kg/m2 [facility] 02-22-2024 11:13040 Body weight 104.32 kg [facility] 02-22-2024 11:130400 Diastolic blood pressure 74 mm[Hg] [facility] 02-22-2024 11:13040 Heart rate 72 /min [facility] 02-22-2024 11:130400 SaO2% (BldA) [Mass fraction] 97 % [facility] 02-22-2024 11:13040 Systolic blood pressure 132 mm[Hg] [facility] 12-19-2023 11:39-0400 Body height 172.72 cm [facility] 12-19-2023 11:39-0400 Body mass index (BMI) [Ratio] 34.3 kg/m2 [facility] 12-19-2023 11:39-0400 Body weight 102.51 kg [facility] 12-19-2023 11:39-0400 Diastolic blood pressure 74 mm[Hg] [facility] 12-19-2023 11:39-0400 Heart rate 75 /min [facility] 12-19-2023 11:39-0400 SaO2% (BldA) [Mass fraction] 98 % [facility] 12-19-2023 11:39-0400 Systolic blood pressure 116 mm[Hg] [facility] 02-21-2023 14:00-0400 Body height Bernice Chavis Other [facility] Other 02-21-2023 14:00-0400 Body mass index (BMI) [Ratio] 32.23 kg/m2 Bernice Chavis Other [facility] Other 02-21-2023 14:00-0400 Body temperature 98.2 [degF] Bernice Chavis Other [facility] Other 02-21-2023 14:00-0400 Body weight 96.16 kg Bernice Chavis Other [facility] Other 02-21-2023 14:00-0400 Diastolic blood pressure 86 mm[Hg] Bernice Chavis Other [facility] Other 02-21-2023 14:00-0400 SaO2% (BldA) [Mass fraction] 99 % Bernice Chavis Other [facility] Other 02-21-2023 14:00-0400 Systolic blood pressure 122 mm[Hg] Bernice Kumarmer Other [facility] Other 06-13-2021 12:15-0500 Body height Bernice Chavis Other [facility] Other 06-13-2021 12:15-0500 Body mass index (BMI) [Ratio] 33.69 kg/m2 Bernice Kumarmer Other [facility] Other 06-13-2021 12:15-0500 Body temperature 98.1 [degF] Bernice Kumarmer Other [facility] Other 06-13-2021 12:15-0500 Body weight 100.52 kg Bernice Kumarmer Other [facility] Other 06-13-2021 12:15-0500 Diastolic blood pressure 84 mm[Hg] Bernice Kumarmer Other [facility] Other 06-13-2021 12:15-0500 Respiratory rate 18 /min Bernice Kumarmer Other [facility] Other 06-13-2021 12:15-0500 SaO2% (BldA) [Mass fraction] 97 % Bernice Palmira Other [facility] Other 06-13-2021 12:15-0500 Systolic blood pressure 124 mm[Hg] Bernice Chavis Other [facility] Other Encounters Encounter Date Encounter Type Care Provider Facility Start: 06-12-2024 End: 06-12-2024 Patient encounter procedure [facility]: Start: 06-12-2024 End: 06-12-2024 ambulatory Bernice Chavis Facility:[facility] Start: 05-27-2024 Non-patient / Non-visit Coby franklin Palmira DO Work Phone: [facility] Work Phone: Start: 02-22-2024 End: 02-22-2024 ambulatory [facility] Work Phone: Start: 02-22-2024 End: 02-22-2024 Patient encounter procedure [facility] Family Medicine Sami Work Phone: Start: 01-29-2024 Non-patient / Non-visit [facility] Work Phone: Start: 12-19-2023 End: 12-19-2023 Patient encounter procedure [facility] Family Medicine Chancellor Work Phone: Start: 10-22-2023 ambulatory [facility] Start: 05-31-2023 End: 05-31-2023 ambulatory Bernice Chavis Other [facility] Other Start: 05-31-2023 Telephone encounter Bernice Roper PG [employer] Start: 05-28-2023 End: 05-28-2023 Patient encounter procedure DO Bernice Chavis Work Phone: [facility] Work Phone: Start: 05-28-2023 End: 05-28-2023 ambulatory DO Bernice Chavis Work Phone: [facility] Work Phone: Start: 05-28-2023 Telephone encounter Bernice Roper [facility] Start: 05-22-2023 End: 05-22-2023 ambulatory DO Bernice Chavis Work Phone: [facility] Work Phone: Start: 05-22-2023 End: 05-22-2023 Patient encounter procedure DO Bernice Chavis Work Phone: [facility] Work Phone: Start: 03-09-2023 End: 03-09-2023 ambulatory Vicente Tam Other [facility] Other Start: 03-09-2023 Telephone encounter Vicente Tam G [employer] Start: 02-21-2023 End: 02-21-2023 ambulatory Bernice Chavis Other [facility] Other Start: 02-21-2023 Encounter for genera l adult medical examination without abnormal findings Bernice Chavis [facility] Family Medicine Chancellor Start: 02-21-2023 Periodic preventive med est patient 40-64yrs Bernice Palmira [facility] Sami Start: 10-11-2022 End: 10-12-2022 ambulatory MOHAMMAD SALINAS Facility: Start: 07-18-2022 End: 07-19-2022 ambulatory MOHAMMAD SALINAS Facility: Start: 04-04-2022 End: 04-05-2022 ambulatory MOHAMMAD SALINAS Facility: Start: 03-24-2022 End: 03-25-2022 ambulatory MOHAMMAD H SALINAS Facility:[facility] Start: 03-16-2022 End: 03-16-[address] SARITHA XAVIER . Facility:[facility] Start: 03-15-2022 End: 03-15-[address] SARITHA XAVIER . Facility:[facility] Start: 03-13-2022 End: 03-14-2022 ambulatory MOHAMMAD H SALINAS Facility:[facility] Start: 02-23-2022 End: 02-24-2022 ambulatory MOHAMMAD SALINAS Facility:[facility] Start: 02-03-2022 End: 02-03-2022 Patient encounter procedure BOONE ZIMMERAD SALINAS [facility] Start: 01-26-2022 End: 01-27-2022 ambulatory MOHAMMAD SALINAS Facility: Start: 01-10-2022 End: 01-11-2022 ambulatory MOHAMMAD SALINAS Facility: Start: 12-30-2021 End: 12-30-2021 ambulatory MOHAMMAD H SALINAS Facility:[facility] Start: 12-29-2021 End: 12-30-2021 ambulatory MOHAMMAD SALINAS Facility: Start: 12-26-2021 End: 12-26-2021 ambulatory REFERRED SELF Facility:[facility] Start: 12-20-2021 End: 12-21-[address] DOCTOR NGUYEN Facility: Start: 12-12-2021 End: 12-13-[address] DOCTOR NGUYEN Facility: Start: 12-05-2021 End: 12-05-2021 ambulatory REFERRED SELF Facility:[facility] Start: 12-03-2021 End: 12-04-2021 ambulatory BERNICE CHAVIS Facility: Start: 11-29-2021 End: 11-29-2021 ambulatory MOHAMMAD H SALINAS Facility:[facility] Start: 11-25-2021 End: 11-26-2021 ambulatory BERNICE CHAVIS Facility: Start: 10-03-2021 End: 10-04-2021 ambulatory REFERRED SELF Facility:[facility] Start: 09-28-2021 End: 09-28-2021 ambulatory Bernice Chavis Other [facility] Other Start: 09-28-2021 Telephone encounter Bernice Roper [facility] Start: 09-27-2021 End: 09-27-2021 ambulatory Bernice Chavis Other [facility] Other Start: 09-27-2021 Telephone encounter Bernice Roper PG [facility] Start: 09-06-2021 End: 09-07-2021 ambulatory MOHAMMAD H SALINAS Facility:[facility] Start: 07-26-2021 End: 07-27-2021 ambulatory MOHAMMAD H SALINAS Facility:[facility] Start: 06-26-2021 End: 06-26-2021 ambulatory Bernice Chavis Other [facility] Other Start: 06-26-2021 Encounter by desmond clark Bernice Chavis [facility] Sami Start: 06-13-2021 End: 06-13-2021 ambulatory Bernice Chavis Other [facility] Other Start: 06-13-2021 Office outpatient vi sit [address] [facility] Start: 06-13-2021 Telephone encounter Bernice Chavis F [facility] Procedures Date Procedure Procedure Detail Performing Clinician Start: 06-12-2024 Screening mammograph y of bilateral breasts Bernice Chavis DO Work Phone: Start: 05-28-2023 Mammography of right breast DO Bernice Chavis Work Phone: Start: 05-28-2023 Ultrasonography of r ight breast DO Bernice Chavis Work Phone: Start: 05-22-2023 Screening mammograph y of bilateral breasts DO Bernice De Paz Phone: Start: 09-17-2017 right transforaminal epidural steroid injection L3-4 1 MOHAMMAD SALINAS Comment on above: 90% relief for 5 day s ankle surgery 2 MOHAMMAD MOODY HID Comment on above: left ankle cervical spine surgery 3 MOH AMMAD SALINAS Comment on above: C5/C6--[facility] ledo Hysterectomy MOHAMMAD SALINAS Plan of Treatment Date Care Activity Detail Author [facility] Immunizations Immunization Date Immunization Notes Care Provider Antonella chase 12-11-2020 COVID-19, mRNA, LNP- S, PF, 30 mcg/0.3 mL dose MOHAMMAD SALINAS [facility] Comment on above: Reason for Medicatio n: Prophylaxis 04-17-2021 COVID-19, mRNA, LNP- S, PF, 30 mcg/0.3 mL dose LAVINIADeisy SALINAS [facility] Comment on above: Reason for Medicatio n: Prophylaxis Payers Date Payer Category Payer Medicaid [id number] 2016 Unknown [id number] 2.1 [id number] 1974 Unknown [id number] 2.16.8 40.1.090137.3.579.2.647 1974 Unknown [id number] 2.16.8 40.1.330870.3.579.2.647 1974 Unknown [id number] 2.16.8 40.1.631853.3.579.2.647 1974 Unknown [id number] 2.16.8 40.1.639281.3.579.2.647 1974 Unknown [id number] 2.16.8 40.1.146410.3.579.2.647 1974 Unknown [id number] 2.16.8 40.1.987399.3.579.2.647 1974 Unknown [id number] 2.16.8 40.1.199168.3.579.2.647 1974 Unknown [id number] 2.16.8 40.1.623260.3.579.2.647 1974 Unknown [id number] 2.16.8 40.1.133079.3.579.2.647 1974 Unknown [id number] 2.16.84 0.1.184803.3.579.2.593 1974 Unknown [id number] 2.16.84 0.1.663457.3.579.2.593 1974 Unknown [id number] 2.16.84 0.1.583400.3.579.2.593 1974 Unknown [id number] 2.16.84 0.1.327139.3.579.2.593 1974 Unknown [id number] 2.16.84 0.1.103875.3.579.2.593 1974 Unknown [id number] 2.16.84 0.1.375231.3.579.2.593 1974 Unknown [id number] 2.16.84 0.1.937808.3.579.2.593 1974 Unknown [id number] 2.16.84 0.1.765321.3.579.2.593 1974 Unknown [id number] 2.16.84 0.1.461640.3.579.2.593 1974 Unknown [id number] 2.16.84 0.1.001926.3.579.2.593 1974 Unknown [id number] 2.16.84 0.1.859469.3.579.2.593 1974 Unknown [id number] 2.16.84 0.1.077430.3.579.2.593 1974 Unknown [id number] 2.16.84 0.1.415868.3.579.2.593 1974 Unknown [id number] 2.16.84 0.1.301662.3.579.2.593 1959 Unknown [id number] Self-pay Self Pay [id number] Social History Date Type Detail Facility Unknown if ever smoked [employer] [facility] Other Sex Assigned At [facility] Other Tobacco smoking status No Smokin g Status Entered [facility] Start: 1975 Sex Assigned At Female F [facility] Start: 03-04-2021 End: 03-04-2021 Tobacco smoking status NHIS Ex-smoker (finding) [facility] Start: 06-13-2024 Sex Female (finding) [facility] Clinical Notes 06-13-2021 to 06-24-2024 Note Date & Type Note Facility 06-24-2024 Note Refill call complete . Kayleen Faustin PharmD, BCACP 08/22/24 3:44 PM [facility] [phone] [facility] 06-24-2024 Note Enrolling patient in patient management program. Initial assessment completed 02/27/24. Reviewed and approved by CHELSEA DARLING on 07/25/24 at 4:27 PM. Specialty Pharmacy Initial Assessment [facility] Encounter Date: 02/27/24 Diamond Guerrero is a 48 y.o. year old female patient contacted via phone for targeted medication review prior to enrollment in Specialty Pharmacy Services for Calquence 100 mg take 1 tablet twice daily . The purpose of this review is to reconcile the patient's current medication regimen, provide patient education, identify drug-drug interactions, assess medication appropriateness, and quitline counselor on the expectations of therapy specific to the above medication. Specialist: Dr. Salinas (Patient transferring care to [facility] with Dr. Mcintosh) Indication: Chronic lymphocytic leukemia (CLL) (ICD10 C91.10) PHARMACIST REVIEW OF INITIAL CLINICAL ASSESSMENT & PAST THERAPIES 10/12/2021 in [place] by Kayleen Moise from [place] (10/12/21): Supervising Physician & Clinic: Dr. Salinas, [facility] Diamond is a 46 year-old female with PMH of CLL -Santillan stage 1 dx in July 2020 . PharmD consulted for evaluation of Calquence (acalabrutinib) 100mg BID daily in combination with obinutuzumab infusion for treatment of CLL (C91.90). Previous medications tried and failed (with duration/ dates): treatment naive Drug-drug interactions: ibuprofen- could increase risk of bleeding due to anti-platelet effects, recommend monitoring Vitals from 09/28/21 and 07/27/21: Ht 69in, Wt 200lbs, BMI 29.5, BP 134/69, HR 73 Pertinent labs: CMP: WNL CBC: WBC 36.4, Lymphocytes 86%, 48164 Based on first line therapy per NCCN guidelines, labs relatively normal other than patient appropriate candidate for medication. Follow-up: PharmD to contact patient for introductory call and additionally when there is updated information from the insurance. Will advise patient to call back with questions or concerns. CURRENT DOCUMENTED OUTPATIENT MEDICATIONS/ALLERGIES/DIETARY RESTRICTIONS, DRUG INTERACTIONS, AND DRUG UTILIZATION REVIEW: Current Outpatient Medications Medication Sig Dispense Refill acalabrutinib (Calquence) 100 mg chemo capsule Take one capsule by mouth in the morning and at bedtime. (Patient not taking: Reported on 10/22/2023) 60 capsule 0 cetirizine (ZyrTEC) 10 mg tablet Allergy Relief (cetirizine) 10 mg tablet EPINEPHrine 0.3 mg/0.3 mL injection syringe epinephrine 0.3 mg/0.3 mL injection, auto-injector No current facility-administered medications for this visit. Reviewed and documented in the Current Medication and allergy/sensitivity list (including but not limited to medications, peanuts, soy, gluten, dairy, shellfish, latex, adhesive/tapes, disinfectants). The patient's current medication list was reviewed and there were no discrepancies found No drug allergy or food allergy changes The patient was asked if they had any dietary requirements (including but not limited to vegetarian, vegan, gluten intolerance, lactose intolerance, Hilal, Kosher) and none were reported Potential drug-drug interactions (including prescription, OTC, and herbal/dietary supplements) were assessed and none were identified A drug utilization review was conducted and there were no DUR alerts identified. HEALTH/SAFETY HAZARDS: The patient was assessed for the following if applicable: Adequate living arrangements, home environment safety and security, functional limitations, orientation and memory, reasoning/judgement, and ability to self-administer medications. Potential issues identified: None The following address was verified with the patient: [address] [place] [phone] Phone number and emergency contact information on file in [facility] was verified with the patient. Yes; safe contact number/address: [phone] ASSESSMENT/CARE PLAN: Patient's diagnosis, comorbidities, health problems, and medical history have been reviewed and assessed. Pertinent labs to the patient's diagnosis and/or therapy have been reviewed, are in range, and are being followed by the clinic/pharmacy. Problem/Diagnosis: CLL Goal/Expected Outcome: Able to perform daily activities, decrease fatigue Actions taken/recommendations to meet goal: Continue adherence to acalabrutinib and Obinutuzumab infusion Monitoring Plan: Monitor annually for for symptoms of night sweats and fatigue or earlier if needed The patient reports concerns about: None The patient will receive injection training, sharps containers, and alcohol swabs, as appropriate. The pharmacy will contact the patient on 02/24/2025 or sooner if clinically warranted for a reassessment to assess toxicity, adherence, and relevant therapeutic goals/care plan. PATIENT VERBALIZED UNDERSTANDING OF CARE PLAN: Y PATIENT ADVISED TO CALL BACK WITH QUESTIONS, CONCERNS, OR CHANGES IN SYMPTOMS. PATIENT EDUCATION PROVIDED: The patient (more content not included)... [facility] 06-24-2024 Note Refill call complete d Pham Hayden CPhT [facility] 06/24/24 8:43 AM [facility] 05-28-2024 Note Specialty Pharmacy - Refill Outreach Date: 05/28/24 Completed with: Patient Medication: Calquence First fill: 08/24/2022 Date last filled 05/01/2024 Day supply ends on: 05/31/2024 Is the patient still on therapy? Yes Since the last refill, has the patient experienced any changes in the following? [x] None [] Allergies [] Medications [] Medical conditions [] Other *If there have been any changes to medications, allergies, or medical conditions since last refill, a Clinical Pharmacist will review and cosign this note. Has the patient experienced any side effects/adverse events since last fill? No Has the patient missed any doses since the last fill? No How many doses does the patient currently have on hand? Week left Has the patient experienced any infections since the last refill? Infections: None If patient has been on medication > 6 months: How does the patient rate their current health-related quality of life? High Quality of Life: appropriate symptom control How does the patient rate overall satisfaction with the services provided by [facility]? (Scale 1-5: 1 being poor, 5 being excellent): 5 Does the patient have any questions for a pharmacist or request to speak to a pharmacist? No Is clinical intervention necessary? No The following information has been verified with the patient: Address: [address] [place] [phone] Rx with be obtained by: Mail Expected date of mail to be delivered: 05/31/2024 Next outreach to patient: approximately 3 weeks (06/18/2024) Pham Hayden CPhT [facility] 05/28/24 3:10 PM [facility] 02-27-2024 Note Specialty Pharmacy I nitial Assessment [facility] Encounter Date: 02/27/24 Diamond Guerrero is a 48 y.o. year old female patient contacted via phone for targeted medication review prior to enrollment in Specialty Pharmacy Services for Calquence 100 mg take 1 tablet twice daily . The purpose of this review is to reconcile the patient's current medication regimen, provide patient education, identify drug-drug interactions, assess medication appropriateness, and quitline counselor on the expectations of therapy specific to the above medication. Specialist: Dr. Salinas (Patient transferring care to [facility] with Dr. Mcintosh) Indication: Chronic lymphocytic leukemia (CLL) (ICD10 C91.10) PHARMACIST REVIEW OF INITIAL CLINICAL ASSESSMENT & PAST THERAPIES 10/12/2021 in [place] by Kayleen Moise from [place] (10/12/21): Supervising Physician & Clinic: Dr. Salinas, [facility] Diamond is a 46 year-old female with PMH of CLL -Santillan stage 1 dx in July 2020 . PharmD consulted for evaluation of Calquence (acalabrutinib) 100mg BID daily in combination with obinutuzumab infusion for treatment of CLL (C91.90). Previous medications tried and failed (with duration/ dates): treatment naive Drug-drug interactions: ibuprofen- could increase risk of bleeding due to anti-platelet effects, recommend monitoring Vitals from 09/28/21 and 07/27/21: Ht 69in, Wt 200lbs, BMI 29.5, BP 134/69, HR 73 Pertinent labs: CMP: WNL CBC: WBC 36.4, Lymphocytes 86%, [id number] Based on first line therapy per NCCN guidelines, labs relatively normal other than patient appropriate candidate for medication. Follow-up: PharmD to contact patient for introductory call and additionally when there is updated information from the insurance. Will advise patient to call back with questions or concerns. CURRENT DOCUMENTED OUTPATIENT MEDICATIONS/ALLERGIES/DIETARY RESTRICTIONS, DRUG INTERACTIONS, AND DRUG UTILIZATION REVIEW: Current Outpatient Medications Medication Sig Dispense Refill acalabrutinib (Calquence) 100 mg chemo capsule Take one capsule by mouth in the morning and at bedtime. (Patient not taking: Reported on 10/22/2023) 60 capsule 0 cetirizine (ZyrTEC) 10 mg tablet Allergy Relief (cetirizine) 10 mg tablet EPINEPHrine 0.3 mg/0.3 mL injection syringe epinephrine 0.3 mg/0.3 mL injection, auto-injector No current facility-administered medications for this visit. Reviewed and documented in the Current Medication and allergy/sensitivity list (including but not limited to medications, peanuts, soy, gluten, dairy, shellfish, latex, adhesive/tapes, disinfectants). The patient's current medication list was reviewed and there were no discrepancies found No drug allergy or food allergy changes The patient was asked if they had any dietary requirements (including but not limited to vegetarian, vegan, gluten intolerance, lactose intolerance, Hilal, Kosher) and none were reported Potential drug-drug interactions (including prescription, OTC, and herbal/dietary supplements) were assessed and none were identified A drug utilization review was conducted and there were no DUR alerts identified. HEALTH/SAFETY HAZARDS: The patient was assessed for the following if applicable: Adequate living arrangements, home environment safety and security, functional limitations, orientation and memory, reasoning/judgement, and ability to self-administer medications. Potential issues identified: None The following address was verified with the patient: [address] [place] [phone] Phone number and emergency contact information on file in [employer] was verified with the patient. Yes; safe contact number/address: [phone] ASSESSMENT/CARE PLAN: Patient's diagnosis, comorbidities, health problems, and medical history have been reviewed and assessed. Pertinent labs to the patient's diagnosis and/or therapy have been reviewed, are in range, and are being followed by the clinic/pharmacy. Problem/Diagnosis: CLL Goal/Expected Outcome: Able to perform daily activities, decrease fatigue Actions taken/recommendations to meet goal: Continue adherence to acalabrutinib and Obinutuzumab infusion Monitoring Plan: Monitor annually for for symptoms of night sweats and fatigue or earlier if needed The patient reports concerns about: None The patient will receive injection training, sharps containers, and alcohol swabs, as appropriate. The pharmacy will contact the patient on 02/24/2025 or sooner if clinically warranted for a reassessment to assess toxicity, adherence, and relevant therapeutic goals/care plan. PATIENT VERBALIZED UNDERSTANDING OF CARE PLAN: Y PATIENT ADVISED TO CALL BACK WITH QUESTIONS, CONCERNS, OR CHANGES IN SYMPTOMS. PATIENT EDUCATION PROVIDED: The patient was educated on the following information: [x] Expectations and possible outcomes of therapy [x] Proper use, administration, and duration of therapy [x] (more content not included)... [facility] 10-22-2023 Note ------ Attestation with edits by [...] treatment Will transfer to Dr. Mcintosh at [facility] . I personally discussed the case with him. Estrella Santa MD ------ HEMATOLOGY/ONCOLOGY PROGRESS NOTE [facility] Patient Name: Diamond Guerrero Date of : [...] now. Oncology History CLL (chronic lymphocytic leukemia) ([facility]) 07/2020 Initial Diagnosis CLL (chronic lymphocytic leukemia) ([facility]) Initial presentation -- Presented with left-sided neck mass, lymphocytosis Initial workup: flow cytometry was suggestive of CLL CT-a/p -- bilateral axillary, inguinal and RP lymphadenopathy Initial tx -- active surveillance, was following with Dr. Magan Francis at [facility] 07/06/2021 Pathology SPEP negative for monoclonal [...] normal. Breath sounds: (more content not included)... [facility] 02-21-2023 Evaluation note Encounter Date Diagnosis Assessment [...] Feb, Tree nut allergy (ICD-10 - Z91.018) [facility] Other 02-22-2022 Evaluation note* Encounter Date Diagnosis Assessment Notes Treatment Notes Treatment Clinical Notes Sep, Left breast lump (ICD-10 - N63.20) Sep, Screening mammogram, encounter for (ICD-10 - Z12.31) [facility] Other 11-08-2021 Evaluation note* Encounter Date Diagnosis Assessment Notes Treatment Notes Treatment Clinical Notes Jun, Tree nut allergy (ICD-10 - Z91.018) Based on patient's history of having sudden allergic reactions to ingesting tree nuts she will be sent for allergy testing by an automobile mechanic helper. The foods that she is stating triggers [...] surgeon so it will be refilled here. [facility] Other Evaluation + Plan note No data available for this section [facility] Other Evaluation noteNo assessment information available [facility] Work Phone: Evaluation note* Diagnosis Onset Date Resolution Status Impingement of left shoulder noneactive Subacromial bursitis of left shoulder joint noneactive CLL (chronic lymphocytic leukemia) chronic PTSD (post-traumatic stress disorder) chronic Spinal stenosis chronic Screening for colon cancer n oneactive Well adult noneactive [facility] Work Phone: History general Narrative - Reported* [...] cervical fusion 05/2020 Hospitalization History See above [facility] Other Hospital Discharge instructions No data available for this section [facility] Dis[facility] instructionsAmbulatory Orders* AMB Cologuard Time Frame: 02/22/24, Location: Determined By Patient [facility] Work Phone: Progress note No data available for this section [facility] Reason for Referral Reason colorectal screening Diagnosis 1 Screening for colon cancer (Z12.11) Referral Organization [facility] Family Maurice Gallardo Referring Provider First Name Bernice Referring Provider Last Name Palmira Referring Provider Specialty Family Prac yusuf Referred Organization [facility] Gastroenterolo gy Referred Address [address] [address] ,[place], [place],[address] Referred Provider Specialty Gastroentero logy Referral Priority Routine Reason * FU 06/20 Patient feels she is allergic to tree nuts as she had an issue after eating a pecan, assess for allergy testing Diagnosis 1 Tree nut allergy (Z9 1.018) Referral Organization [facility] Family Maurice Gallardo Referring Provider First Name Bernice Referring Provider Last Name Palmira Referring Provider Specialty Family Prac yusuf Referred Organization [facility] Referred Provider Harry King Referred Address ,[place], [place],[address] Referred Provider Specialty Allergy/Immu nology Referral Priority [...] Diabetes mellitus Unknown Not Specified Hypertension Unknown Relationship Condition Age at Onset Recorded Date/T annita Not Specified Malignant neoplasm of thyroid gland Unkn own father Malignant neoplasm of urinary bladder Unk nown grandparent Lymphoma Unknown grandparent Malignant neoplasm of breast Unknown mother Diabetes mellitus Unknown mother Hypertension Unknown father Malignant neoplasm Unknown Advance Directives No Advanced Directives Records Found Advance Directive Response Recorded Date/ Time Advance Directives No April 7:12am Advance Directive Response Recorded Date/ Time Advance Directives No April 6:12am Chief Complaint and Reason for Visit Chief Complaint Z12.31 Chief Complaint Z12.31 R92.8 Chief Complaint Left shoulder pain AWV Reason for Visit Impingement of left shoulder Subacromial bursitis of left shoulder joint CLL (chronic lymphocytic leukemia) PTSD (post-traumatic stress disorder) Spinal stenosis Screening for colon cancer Well adult Chief Complaint Admit Date Screening June 12, 2024 2 :52pm Additional Source Comments REASON FOR VISIT (unrecogniz ed section and content) REFERRAL UPDATEBreast ultras ound resultsMAIL PPWawvmammogran and ultra soundCancer care at [facility]discuss allergies Care Team (unrecognized sect ion and content) Team Status: Active Member Role Status Dates Bernice Chavis DO Primary Care Provider Active Team Status: Active Member Role Status Dates Bernice Chavis DO Primary Care Provider Active Start: May 27, 2024 Rachel Mcintosh MD Attending Provider Active St art: May 27, 2024 Team Status: Inactive Member Role Status Dates Bernice Chavis DO Primary Care Provider Active Start: June 12, 2024 End: June 12, 2024 Jamarcus Esposito APRN Attending Provider Active Start: June 12, 2024 End: June 12, 2024 Team Status: Inactive Member Role Status Dates Bernice Chavis DO Primary Care Provider, Attending Provider Active Team Status: Inactive Member Role Status Dates Bernice Chavis , DO Primary Care Provi jacqueline, Attending Provider Active Start: December 19, 2023 End: December 19, 2023 Team Status: Active Member Role Status Dates Bernice Kahn Palmira , DO Primary Care Provider Active Start: January 29, 2024 Rachel Mcintosh MD Attending Provider Active St art: January 29, 2024 Team Status: Inactive Member Role Status Dates Bernice Chavis , DO Primary Care Provi jacqueline, Attending Provider Active Start: February 22, 2024 End: February 22, 2024 INFORMATION SOURCE (unrecogn ized section and content) DATE CREATED AUTHOR 02/22/2022 [facility] DATE CREATED AUTHOR AUTHOR'S ORGANIZ ATION 03/28/2022 [facility] DATE CREATED AUTHOR AUTHOR'S ORGANIZ ATION 10/15/2022 [facility] DATE CREATED AUTHOR AUTHOR'S ORGANIZ ATION 06/14/2024 [facility] DATE CREATED AUTHOR AUTHOR'S ORGANIZ ATION 09/19/2024 [facility] Goals (unrecognized section and content) Goals [...] BE BASED ON THE PRIMARY CLINICAL RECORDS. [employer] provides no warranty or guarantee of the accuracy or completeness of information in this document.
== END 2024-10-15 08:04 | disposition home or self-care (01) ==
LOC: HEMC 07:37
PROVIDERS: Visit Provider Internal Medicine Hematology & Oncology
DX: C91.10 Chronic lymphocytic leukemia of B-cell type not having achieved remission (principal); Z90.710 Acquired absence of both cervix and uterus; Z90.721 Acquired absence of ovaries, unilateral; Z87.891 Personal history of nicotine dependence; Z98.1 Arthrodesis status; R61 Generalized hyperhidrosis
CPT/HCPCS: G0463

== ENCOUNTER 2024-11-17 15:18 | Outpatient (OUT) | payer MEDICAID, SELFPAY ==
--- NOTE | 2024-11-17 15:32 | PE_ITS ---
The [address] [address] Patient Name: DIAMOND MONTGOMERY MRN: [id number] date: 1975 Sex: F Assigned Patient Location: PETCT Current Patient Location: Accession/Order Number: [id number] Exam Date: 11/18/2024 08:52 Report Date: 11/18/2024 09:15 At the request of: ALIX OLIVARES MD Procedure: PET skull to mid thigh PET/CT WITH FUSION CLINICAL DATA: Chronic lymphocytic leukemia COMPARISON: None Following the intravenous administration of 10.17 mCi of FDG, SPECT imaging in 3 planes was performed from the level the orbits through the groin. The patient's blood glucose level at the time of injection was 80 mg/dL. Spiral unenhanced CT was also performed for anatomic localization. The PET and CT images were fused. This CT exam was performed using one or more following dose reduction techniques: Automated exposure control, adjustment of the mA and/or kV according to patient size, or use of iterative reconstruction technique. NECK: No enlarged or hypermetabolic cervical lymph nodes are present. There is mild physiologic activity at the oral cavity and vocal cords. CHEST: No enlarged or hypermetabolic mediastinal, hilar or axillary lymph nodes are identified. No pulmonary abnormalities are noted. Granulomatous changes are visualized. ABDOMEN/PELVIS: There is no abnormal hypermetabolism associated with the liver or adrenal glands. There are few small scattered abdominal lymph nodes which are not pathologically enlarged or hypermetabolic. No pathologic pelvic or inguinal adenopathy is seen. There is asymmetric increased FDG uptake (SUV 6.3) at the medullary portion of the proximal left femur of unknown etiology. There is physiologic activity involving the urinary tract and bowel. Diverticular disease is noted. There are splenic granulomas. PET/PET skull to mid thigh IMPRESSION: NO PATHOLOGIC ADENOPATHY. ASYMMETRIC INCREASED MEDULLARY UPTAKE AT THE PROXIMAL LEFT FEMUR, UNDETERMINED ETIOLOGY AND SIGNIFICANCE. Impression dictated by: Yuli Zamora M.D.11/18/2024 9:15 AM Dictation Location: [place] [address] Electronically authenticated by: [id number] Y Date: 11/18/2024 09:15
--- OUTSIDE RECORDS SUMMARY | 2024-11-17 15:40 | XMS_ITS | CCD ---
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 Name Role Phone Bernice Chavis Unavailable BERNICE CHAVIS Primary Care Physician [phone] SALINAS, MOHAMMAD H Admitting Unavailable SELF, REFERRED [...] DOCTOR Attending Unavailable MISC, DOCTOR Admitting Unavailable BERNICE CHAVIS Primary Care Unavailable MISC, DOCTOR Consulting Unavailable SALINAS, JOANNE Admitting Unavailable SALINAS, JOANNE Attending Unavailable PALMIRA BERNICE Primary Care Unavailable SALINAS, MOHAMMAD Consulting Unavailable SALINAS, MOHAMMAD Admitting Unavailable SALINAS, MOHAMMAD Attending Unavailable PALMIRAKRISTINEEW Primary Care Unavailable SALINAS, MOHAMMAD Admitting Unavailable SALINAS, MOHAMMAD Consulting Unavailable SALINAS, MOHAMMAD Attending Unavailable PALMIRA, BERNICE Primary Care Unavailable SALINAS, MOHAMMAD Attending Unavailable SALINAS, MOHAMMAD Admitting Unavailable SALINAS, MOHAMMAD Consulting Unavailable PALMIRA, BERNICE Primary Care Unavailable SALINAS, MOHAMMAD Attending Unavailable SALINAS, MOHAMMAD Admitting Unavailable SALINAS, MOHAMMAD Consulting Unavailable PALMIRA, BERNICE Primary Care Unavailable PALMIRA, BERNICE Primary Care Unavailable MISC, DR DOCTOR Consulting Unavailable MISC, DR DOCTOR Attending Unavailable MISC, DR FERNANDO Admitting Unavailable PALMIRA, BERNICE Primary Care Unavailable MISC, DOCTOR Consulting Unavailable MISC, DR FERNANDO Attending Unavailable MISC, DR FERNANDO Admitting Unavailable PAY ., DR MELARA Admitting Unavailable PALMIRA, BERNICE Primary Care Unavailable PAY ., DR MELARA Attending Unavailable FLORES ., DEEPIKA Consulting Unavailable RAMESH, LAKHWINDER Consulting Unavailable SALINAS, MOHAMMAD Admitting Unavailable SALINAS, MOHAMMAD Attending Unavailable [facility], BERNICE Primary Care Unavailable SALINAS, MOHAMMAD Admitting Unavailable SALINAS, MOHAMMAD Consulting Unavailable SALINAS, MOHAMMAD Attending Unavailable PALMIRA, BERNICE Primary Care Unavailable SALINAS, MOHAMMAD Admitting Unavailable SALINAS, MOHAMMAD Consulting Unavailable SALINAS, MOHAMMAD Attending [facility] Unavailable SALINAS, MOHAMMAD Admitting Unavailable SALINAS, MOHAMMAD Consulting Unavailable SALINAS, MOHAMMAD Attending Unavailable [facility], BERNICE Primary Care Unavailable PAY ., DR MELARA Consulting Unavailable PAY ., DR MELARA Attending Unavailable [facility] Primary Care Unavailable PAY ., DR MELARA Admitting Unavailable PalmiraKristineew Unavailable Vicente Tam Unavailable Palmira, DO Bernice Kahn Primary Care Provider DO Bernice Chavis Attending Provider Palmira, Bernice N Primary Care Unavailable Jamarcus Esposito Attending Unavailable Jamarcus Esposito Admitting Unavailable Bernice Chavis DO Primary Care Provider Jamarcus Esposito APRN Attending Provider Allergies Allergy Classification Reported Allergen(s) Allergy Type Date of Onset Reaction(s) Facility (15 sources) Chlorhexidine; Translations: [Chlorhexidine] Drug Allergy 08-09-19 21 burning, Unknown Reaction, Unknown Reaction, burning [facility] Other (9 sources) Codeine Drug Allergy itchy [facility] Other (12 sources) Latex Propensity to adverse reactions 02-22-20 24 itchy, rash itching [facility] Other (11 sources) pollen, dust Propensity to adverse reactions 02-22-20 23 [facility] (1 source) Chlorhexidine Drug Allergy 10-10-19 15 [facility] (7 sources) Codeine Drug Allergy 04-07-20 12 Itching, Itching, itchy [facility] (1 source) Etoposide Drug Allergy 04-17-20 13 [facility] (2 sources) Latex Drug allergy (disorder) 11-14-19 13 [facility] (1 source) OPIODS; Translations: [OPIODS] Propensity to adverse reactions (disorder) 05-11-20 20 [facility] Medications Current Medications Medication Drug Class(es) Dates Sig (Normalized) Sig (Original) acalabrutinib 100 MG Oral Tablet [Calquence] (4 sources) take 1 tablet by mouth every twelve hours Calquence 100 MG 1 tablet Orally every [address] Red, [facility], Chronic lymphocytic lukemia. Active Acalabrutinib Maleate (2 sources) Start: 12-17-2023 take 1 tablet by mouth every twelve hours Acalabrutinib Maleate 100 mg tablet Active 1 TAB PO Every 12 hours December 16, 2023 11:00pm FreeTextSi tablet Orally every 12 hrs; Note: Source Status: TakingDr. Red, [facility], Chronic lymphocytic lukemia.; Provider: Palmira Weiss ( ) Start: 12-17-2023 take 1 tablet by lindsay th every twelve hours Acalabrutinib Maleate Active 1 TAB PO Every 12 hours December 17, 2023 12:00am [employer]Text[employer] tablet Orally every 12 hrs; Note: Source Status: TakingDr. Red, 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] Onset: 03-17-2022 Episodic Other gastrointestinal disorders (4 sources) Diarrhea, unspecified; Translations: [DIARRHEA UNSPECIFIED] Onset: 03-16-2022 Episodic Unclassified (1 source) Well adult; Translations: [Full-term infant] 02-22-2024 Results Test Name Value Interpretation Reference Range Facility [facility] [id number] Kristan Guerrero T 1975 F Date Provider Department Center 06/24/2024 [id number], [facility] Spe Pha Comprehensiv Family History Problem Relation Age of Onset Diabetes Mother Hypertension Mother Cancer Father Cancer Maternal Grandfather Stroke Maternal Grandfather Cancer Paternal Grandmother Family Status - Relation Status Age at Mother Father Maternal Grandfather Paternal Grandmother Reason for Visit and Comments: Specialty Pharmacy Note: Calquence [Other] Normal [facility] MM screening mammo BI w/CADo n 06-12-2024 MM screening mammo BI w/CAD [facility] [address] [place] [address] Mammography Report Signed Patient: Diamond Guerrero MR#: [id number] : 1975 Acct:[id number] Age/Sex: 48 / F ADM Date: 06/12/24 Loc: [place] Room: Type: [facility] Attending Dr: Jamarcus Esposito [employer] Copies to: Bernice Chavis, DO Jamarcus Esposito [...] Saritha Avila M.D.06/12/2024 3:40 PM Dictation Location: DWS01 Transcribed By: SHEILA 06/12/24 1540 Dictated By: Saritha Avila DO 06/12/241532 Signed By: 06/12/24 1540 Normal [facility] Mammography reportOrdered By : Saritha Avila on 06-12-2024 Diagnostic imaging study [facility] [address] [place] [address] Mammography Report Signed Patient: Diamond Guerrero MR#: [id number] : 1975 Acct:[id number] Age/Sex: 48 / F ADM Date: 4 Loc: [place] Room: Type: [facility] Attending Dr: Jamarcus Esposito [employer] Copies to: DO Jamarcus Robertson, [employer]~ Ordering Provider: Jamarcus Esposito APRN Date of [...] Saritha Avila M.D.06/12/2024 3:40 PM Dictation Location: DWS01 Transcribed By: SHEILA 06/12/24 1540 Dictated By: Saritha Avila DO 11/07/24 1533 Signed By: 06/12/24 1540 [facility] Basophils Auto (Bld) [#/Vol] on 05-27-2024 Basophils (Bld) [#/Vol] Automated basophil count 0.0-0.1 [facility] Basophils/100 WBC Auto (Bld) on 05-27-2024 Basophils/100 WBC (Bld) Automated basophil % 0.2-2.0 [facility] Eosinophils/100 WBC Auto (Bl d)on 05-27-2024 Eosinophils/100 WBC (Bld) Automated eosinophil % 0.9-7.0 [facility] Erythrocyte distribution wid th Auto (RBC) [Ratio]on 05-27-2024 Erythrocyte distribution width (RBC) [Ratio] Erythrocyte distribution width [Ratio] by Automated count 11.0-15.0 [facility] Estimated glomerular filtrat ion rate (GFR) non- Americanon 05-27-2024 GFR/1.73 sq M.predicted among non-blacks MDRD (S/P/Bld) [Vol rate/Area] Estimated glomerular filtration rate (GFR) non- >=60 mL/min/1.73m 2 [facility] Globulin Calc (S) [Mass/Vol] on 05-27-2024 Globulin (S) [Mass/Vol] Serum globulin measurement by calculation (mass/volume) [facility] Hematocrit Auto (Bld) [Volum e fraction]on 05-27-2024 Hematocrit (Bld) [Volume fraction] Hematocrit [Volume Fraction] of Blood by Automated count 36.0-48.0 [facility] Hemoglobin [Mass/volume] in Bloodon 05-27-2024 Hemoglobin (Bld) [Mass/Vol] Hemoglobin [Mass/volume] in Blood 12.0-16.0 [facility] Laboratory - Chemistry and C hemistry - challengeon 05-27-2024 Albumin [Mass/Vol] 3.6 g/dL 3.4-5.0 [facility] ALP [Catalytic activity/Vol] 94 U/L 46-116 [facility] ALT [Catalytic activity/Vol] 25 U/L 14-59 [facility] AST [Catalytic activity/Vol] 14 U/L Low 15-37 [facility] Bilirubin [Mass/Vol] 0.7 mg/dL 0.2-1.0 [facility] Calcium [Mass/Vol] 9.3 mg/dL 8.5-10.1 [facility] Chloride [Moles/Vol] 107 mmol/L 98-107 [facility] CO2 [Moles/Vol] 24.5 mmol/L 21.0-32.0 [facility] Creatinine [Mass/Vol] 0.68 mg/dL 0.55-1.02 [facility] GFR/1.73 sq M.predicted MDRD (S/P/Bld) [Vol rate/Area] mL/min/{1.73_m2} >=60 mL/min/1.73m 2 [facility] Glucose [Mass/Vol] 98 mg/dL 74-106 [facility] LDH [Catalytic activity/Vol] 174 U/L 81-234 [facility] Potassium [Moles/Vol] 4.3 mmol/L 3.5-5.1 [facility] Protein [Mass/Vol] 7.4 g/dL 6.4-8.2 [facility] Sodium [Moles/Vol] 142 mmol/L 136-145 [facility] Urate [Mass/Vol] 3.4 mg/dL 2.6-6.0 [facility] Urea nitrogen [Mass/Vol] 7.0 mg/dL 7.0-18.0 [facility] Urea nitrogen/Creatinine [Mass ratio] 10.3 mg/mg [facility] Laboratory - Hematology and Cell countson 05-27-2024 Immature granulocytes/100 WBC (Bld) 0.3 % 0.0-0.5 [facility] Leukocytes [#/volume] correc antolin for nucleated erythrocytes in Blood by Automated counon 05-27-2024 WBC corrected for nucl RBC Auto (Bld) [#/Vol] Leukocytes [#/volume] corrected for nucleated erythrocytes in Blood by Automated coun 4.0-11.0 [facility] Lymphocytes Auto (Bld) [#/Vo l]on 05-27-2024 Lymphocytes (Bld) [#/Vol] Lymphocytes [#/volume] in Blood by Automated count 1.2-3.8 [facility] Lymphocytes/100 WBC Auto (Bl d)on 05-27-2024 Lymphocytes/100 WBC (Bld) Lymphocytes/100 leukocytes in Blood by Automated count 20.5-60.0 [facility] MCH Auto (RBC) [Entitic mass ]on 05-27-2024 MCH (RBC) [Entitic mass] MCH [Entitic mass] by Automated count 26.7-34.0 [facility] MCHC Auto (RBC) [Mass/Vol]on 05-27-2024 MCHC (RBC) [Mass/Vol] MCHC [Mass/volume] by Automated count 29.9-35.2 [facility] MCV Auto (RBC) [Entitic vol] on 05-27-2024 MCV (RBC) [Entitic vol] MCV [Entitic volume] by Automated count 81.0-99.0 [facility] Monocytes Auto (Bld) [#/Vol] on 05-27-2024 Monocytes (Bld) [#/Vol] Automated blood monocyte count 0.3-0.8 [facility] Monocytes/100 WBC Auto (Bld) on 05-27-2024 Monocytes/100 WBC (Bld) Automated monocyte % 1.7-12.0 [facility] Neutrophils Auto (Bld) [#/Vo l]on 05-27-2024 Neutrophils (Bld) [#/Vol] Neutrophils [#/volume] in Blood by Automated count 1.4-6.5 [facility] Neutrophils/100 WBC Auto (Bl d)on 05-27-2024 Neutrophils/100 WBC (Bld) Automated neutrophil % 43.0-75.0 [facility] No Panel Informationon 05-27 Eosinophils # (Auto) 0.1 10 3/uL 0.0-0.7 [facility] Immature Granulocyte # (Auto) 0.02 10 3/uL 0.00-0.03 [facility] Platelet mean volume Auto (B ld) [Entitic vol]on 05-27-2024 Platelet mean volume (Bld) [Entitic vol] Platelet mean volume [Entitic volume] in Blood by Automated count 9.5-13.5 [facility] Platelets Auto (Bld) [#/Vol] on 05-27-2024 Platelets (Bld) [#/Vol] Platelets [#/volume] in Blood by Automated count 150-450 [facility] RBC Auto (Bld) [#/Vol]on RBC (Bld) [#/Vol] Erythrocytes [#/volu me] in Blood by Automated count 4.20-5.40 [facility] Serum or plasma albumin/glob ulin mass ratioon 05-27-2024 Albumin/Globulin [Mass ratio] Serum or plasma albumin/globulin mass ratio [facility] Serum or plasma anion gap de terminationon 05-27-2024 Anion gap [Moles/Vol] Serum or plasma anion gap determination [facility] Documentationon 02-27-2024 Documentation [id number] Kristan Guerrero 1975 F Date Provider Department Center 02/27/[id number], [facility] Spe Pha Comprehensiv Family History Problem Relation Age of Onset Diabetes Mother Hypertension Mother Cancer Father Cancer Maternal Grandfather Stroke Maternal Grandfather Cancer Paternal Grandmother Family Status - Relation Status Age at Mother Father Maternal Grandfather Paternal Grandmother Reason for Visit and Comments: Specialty Pharmacy Initial Assessment. Calquence [Other] Normal [facility] Basophils Auto (Bld) [#/Vol] on 01-29-2024 Basophils (Bld) [#/Vol] 0.0 10 3/uL 0.0-0.1 [facility] Basophils/100 WBC Auto (Bld) on 01-29-2024 Basophils/100 WBC (Bld) 0.7 % 0.2-2.0 [facility] Eosinophils/100 WBC Auto (Bl d)on 01-29-2024 Eosinophils/100 WBC (Bld) 2.0 % 0.9-7.0 [facility] Erythrocyte distribution wid th Auto (RBC) [Ratio]on 01-29-2024 Erythrocyte distribution width (RBC) [Ratio] 12.1 % 11.0-15.0 [facility] Estimated glomerular filtrat ion rate (GFR) non- Americanon 01-29-2024 GFR/1.73 sq M.predicted among non-blacks MDRD (S/P/Bld) [Vol rate/Area] mL/min/{1.73_m2} >=60 [facility] Globulin Calc (S) [Mass/Vol] on 01-29-2024 Globulin (S) [Mass/Vol] 3.7 g/dL [facility] Hematocrit Auto (Bld) [Volum e fraction]on 01-29-2024 Hematocrit (Bld) [Volume fraction] 44.7 % 36.0-48.0 [facility] Hemoglobin [Mass/volume] in Bloodon 01-29-2024 Hemoglobin (Bld) [Mass/Vol] 14.9 g/dL 12.0-16.0 [facility] Laboratory - Chemistry and C hemistry - challengeon 01-29-2024 Albumin [Mass/Vol] 3.7 g/dL 3.4-5.0 [facility] ALP [Catalytic activity/Vol] 87 U/L 46-116 [facility] ALT [Catalytic activity/Vol] 25 U/L 14-59 [facility] AST [Catalytic activity/Vol] 15 U/L 15-37 [facility] Bilirubin [Mass/Vol] 0.5 mg/dL 0.2-1.0 [facility] Calcium [Mass/Vol] 8.7 mg/dL 8.5-10.1 [facility] Chloride [Moles/Vol] 107 mmol/L 98-107 [facility] CO2 [Moles/Vol] 25.6 mmol/L 21.0-32.0 [facility] Creatinine [Mass/Vol] 0.53 mg/dL Low 0.55-1.02 [facility] GFR/1.73 sq M.predicted MDRD (S/P/Bld) [Vol rate/Area] mL/min/{1.73_m2} >=60 [facility] Glucose [Mass/Vol] 106 mg/dL 74-106 [facility] LDH [Catalytic activity/Vol] 167 U/L 81-234 [facility] Potassium [Moles/Vol] 4.1 mmol/L 3.5-5.1 [facility] Protein [Mass/Vol] 7.4 g/dL 6.4-8.2 [facility] Sodium [Moles/Vol] 142 mmol/L 136-145 [facility] Urate [Mass/Vol] 2.9 mg/dL 2.6-6.0 [facility] Urea nitrogen [Mass/Vol] 10.0 mg/dL 7.0-18.0 [facility] Urea nitrogen/Creatinine [Mass ratio] 18.9 mg/mg [facility] Laboratory - Hematology and Cell countson 01-29-2024 Immature granulocytes/100 WBC (Bld) 0.2 % 0.0-0.5 [facility] Leukocytes [#/volume] correc antolin for nucleated erythrocytes in Blood by Automated counon 01-29-2024 WBC corrected for nucl RBC Auto (Bld) [#/Vol] 6.0 10 3/uL 4.0-11.0 [facility] Lymphocytes Auto (Bld) [#/Vo l]on 01-29-2024 Lymphocytes (Bld) [#/Vol] 1.3 10 3/uL 1.2-3.8 [facility] Lymphocytes/100 WBC Auto (Bl d)on 01-29-2024 Lymphocytes/100 WBC (Bld) 21.2 % 20.5-60.0 [facility] MCH Auto (RBC) [Entitic mass ]on 01-29-2024 MCH (RBC) [Entitic mass] 30.1 pg 26.7-34.0 [facility] MCHC Auto (RBC) [Mass/Vol]on 01-29-2024 MCHC (RBC) [Mass/Vol] 33.3 g/dL 29.9-35.2 [facility] MCV Auto (RBC) [Entitic vol] on 01-29-2024 MCV (RBC) [Entitic vol] 90.3 fL 81.0-99.0 [facility] Monocytes Auto (Bld) [#/Vol] on 01-29-2024 Monocytes (Bld) [#/Vol] 0.6 10 3/uL 0.3-0.8 [facility] Monocytes/100 WBC Auto (Bld) on 01-29-2024 Monocytes/100 WBC (Bld) 9.8 % 1.7-12.0 [facility] Neutrophils Auto (Bld) [#/Vo l]on 01-29-2024 Neutrophils (Bld) [#/Vol] 4.0 10 3/uL 1.4-6.5 [facility] Neutrophils/100 WBC Auto (Bl d)on 01-29-2024 Neutrophils/100 WBC (Bld) 66.1 % 43.0-75.0 [facility] No Panel Informationon 01-28 Eosinophils # (Auto) 0.1 10 3/uL 0.0-0.7 [facility] Immature Granulocyte # (Auto) 0.01 10 3/uL 0.00-0.03 [facility] Platelet mean volume Auto (B ld) [Entitic vol]on 01-29-2024 Platelet mean volume (Bld) [Entitic vol] 11.5 fL 9.5-13.5 [facility] Platelets Auto (Bld) [#/Vol] on 01-29-2024 Platelets (Bld) [#/Vol] 197 10 3/uL 150-450 [facility] RBC Auto (Bld) [#/Vol]on RBC (Bld) [#/Vol] 4.95 10 6/uL 4.20-5.40 [facility] Serum or plasma albumin/glob ulin mass ratioon 01-29-2024 Albumin/Globulin [Mass ratio] 1.0 {ratio} [facility] Serum or plasma anion gap de terminationon 01-29-2024 Anion gap [Moles/Vol] 13.5 mmol/L [facility] CBC AUTO DIFFon 10-11-2022 BASO # 0.0 103/ul Normal 0.0-0.1 [facility] Comment on above: Performed By: #### U JORI, PHOS, CMP, LDH #### [facility] [address], [place] [address] Dr. Juliocesar Young Basophils/100 WBC (Bld) 0.4 % Normal 0.2-2.0 [facility] Comment on above: Performed By: #### U JORI, PHOS, CMP, LDH #### [facility] [address], [place] [address] Dr. Juliocesar Young EO # 0.1 103/ul Normal 0.0-0.7 [facility] Comment on above: Performed By: #### U JORI, PHOS, CMP, LDH #### [facility] [address] [place] [address] Dr. Juliocesar Young Eosinophils/100 WBC (Bld) 1.3 % Normal 0.9-7.0 [facility] Comment on above: Performed By: #### U JORI, PHOS, CMP, LDH #### [facility] [address] [place] [address] Dr. Juliocesar Young Erythrocyte distribution width (RBC) [Ratio] 12.4 % Normal 11.0-15.0 [facility] Comment on above: Performed By: #### U JORI, PHOS, CMP, LDH #### [facility] [address] [place] [address] Dr. Juliocesar Young Hematocrit (Bld) [Volume fraction] 39.8 % Normal 36.0-48.0 [facility] Comment on above: Performed By: #### U JORI, PHOS, CMP, LDH #### [facility] [address] [place] [address] Dr. Juliocesar Young Hemoglobin (Bld) [Mass/Vol] 13.5 g/dL Normal 12.0-16.0 [facility] Comment on above: Performed By: #### U JORI, PHOS, CMP, LDH #### [facility] [address] [place] [address] Dr. Juliocesar Young IG # 0.03 10e3/ul Normal 0.00-0.03 [facility] Comment on above: Performed By: #### U JORI, PHOS, CMP, LDH #### [facility] [address] [place] [address] Dr. Juliocesar Young IG % 0.4 % Normal 0.0-0.5 [facility] Comment on above: Performed By: #### U JORI, PHOS, CMP, LDH #### [facility] [address] [place] [address] Dr. Juliocesar Young LYMPH # 1.4 103/ul Normal 1.2-3.8 [facility] Comment on above: Performed By: #### U JORI, PHOS, CMP, LDH #### [facility] [address] [place] [address] [address] Juliocesar Young Lymphocytes/100 WBC (Bld) 21.2 % Normal 20.5-60.0 [facility] Comment on above: Performed By: #### U JORI, PHOS, CMP, LDH #### [facility] [address] [address] [address] Juliocesar Young MANUAL DIFF REQ NO Normal [facility] Comment on above: Performed By: #### U JORI, PHOS, CMP, LDH #### [facility] [address] [place] [address] Dr. Juliocesar Young MCH (RBC) [Entitic mass] 31.3 pg Normal 26.7-34.0 [facility] Comment on above: Performed By: #### U JORI, PHOS, CMP, LDH #### [facility] [address] [place] [address] Dr. Juliocesar Young MCHC (RBC) [Mass/Vol] 33.9 g/dL Normal 29.9-35.2 [facility] Comment on above: Performed By: #### U JORI, PHOS, CMP, LDH #### [facility] [address] [place] [address] Dr. Juliocesar Young MCV (RBC) [Entitic vol] 92.3 fL Normal 81.0-99.0 [facility] Comment on above: Performed By: #### U JORI, PHOS, CMP, LDH #### [facility] [address] [place] [address] Dr. Juliocesar Young MONO # 0.7 103/ul Normal 0.3-0.8 [facility] Comment on above: Performed By: #### U JORI, PHOS, CMP, LDH #### [facility] [address] [place] [address] Dr. Juliocesar Young Monocytes/100 WBC (Bld) 11.0 % Normal 1.7-12.0 [facility] Comment on above: Performed By: #### U JORI, PHOS, CMP, LDH #### [facility] [address] [address] [address] Juliocesar Young NEUT # 4.4 103/ul Normal 1.4-6.5 [facility] Comment on above: Performed By: #### U JORI, PHOS, CMP, LDH #### [facility] [address] [address] [address] Juliocesar Young Neutrophils/100 WBC (Bld) 65.7 % Normal 43.0-75.0 [facility] Comment on above: Performed By: #### U JORI, PHOS, CMP, LDH #### [facility] [address] [address] [address] Juliocesar Young Platelet mean volume (Bld) [Entitic vol] 10.8 fL Normal 9.5-13.5 [facility] Comment on above: Performed By: #### U JORI, PHOS, CMP, LDH #### [facility] [address] [place] [address] Dr. Juliocesar Young PLT 177 103/ul Normal 150-450 [facility] Comment on above: Performed By: #### U JORI, PHOS, CMP, LDH #### [facility] [address] [place] [address] Dr. Juliocesar Young RBC 4.31 106/ul Normal 4.20-5.40 [facility] [facility] Comment on above: Performed By: #### U JORI, PHOS, CMP, LDH #### [facility] [address] [place] [address] Dr. Juliocesar Young WBC 6.7 103/ul Normal 4.0-11.0 [facility] Comment on above: Performed By: #### U JORI, PHOS, CMP, LDH #### [facility] [address] [address] [address] Juliocesar Young LDHon 10-11-2022 LDH 133 U/L Normal 81-234 [facility] Comment on above: Performed By: #### C MP #### [facility] [address] [place] [address] Dr. Juliocesar Young PHOSPHORUSon 10-11-2022 Phosphate [Mass/Vol] 3.5 mg/dL Normal 2.6-4.7 [facility] Comment on above: Performed By: #### O VAPE #### [facility] [address] [place] [address] Dr. Juliocesar Young PROF 14(COMP METB)on 023 Albumin [Mass/Vol] 3.4 g/dL Normal 3.4-5.0 [facility] Comment on above: Performed By: #### C MP #### [facility] [address] [place] [address] Dr. Juliocesar Young Albumin/Globulin [Mass ratio] 1.2 {ratio} Normal [facility] Comment on above: Performed By: #### C MP #### [facility] [address] [place] [address] Dr. Juliocesar Young ALP [Catalytic activity/Vol] 85 U/L Normal 46-116 [facility] Comment on above: Performed By: #### C MP #### [facility] [address] [place] [address] Dr. Juliocesar Young ALT [Catalytic activity/Vol] 18 U/L Normal 14-59 [facility] Comment on above: Performed By: #### C MP #### [facility] [address] [place] [address] Dr. Juliocesar Young Anion gap [Moles/Vol] 10.1 mmol/L Normal [facility] Comment on above: Performed By: #### C MP #### [facility] [address] [place] [address] Dr. Juliocesar Young AST [Catalytic activity/Vol] 12 U/L Critically low 15-37 [facility] Comment on above: Performed By: #### C MP #### [facility] [address] [place] [address] Dr. Juliocesar Young Bilirubin [Mass/Vol] 0.4 mg/dL Normal 0.2-1.0 [facility] Comment on above: Performed By: #### C MP #### [facility] [address] [place] [address] Dr. Juliocesar Young Calcium [Mass/Vol] 8.5 mg/dL Normal 8.5-10.1 [facility] Comment on above: Performed By: #### C MP #### [facility] [address] [address] [address] Juliocesar Young Chloride [Moles/Vol] 110 mmol/L Critically high 98-107 [facility] Comment on above: Performed By: #### C MP #### [facility] [address] [address] [address] Juliocesar Young CO2 [Moles/Vol] 27.9 mmol/L Normal 21.0-32.0 [facility] Comment on above: Performed By: #### C MP #### [facility] [address] [address] [address] Juliocesar Young Creatinine [Mass/Vol] 0.60 mg/dL Normal 0.55-1.02 [facility] Comment on above: Performed By: #### C MP #### [facility] [address] [address] [address] Juliocesar Young EGFR-AF JAPANESE >60 Normal >=60 [facility] Comment on above: Performed By: #### C MP #### [facility] [address] [address] [address] Juliocesar Young EGFR-NON AF JAPANESE >60 Normal >=60 [facility] Comment on above: Performed By: #### C MP #### [facility] [address] [address] [address] Juliocesar Young Globulin (S) [Mass/Vol] 2.9 g/dL Normal [facility] Comment on above: Performed By: #### C MP #### [facility] [address] [address] [address] Juliocesar Young Glucose [Mass/Vol] 79 mg/dL Normal 74-106 [facility] Comment on above: Performed By: #### C MP #### [facility] [address] [address] [address] Juliocesar Young Potassium [Moles/Vol] 4.0 mmol/L Normal 3.5-5.1 [facility] Comment on above: Performed By: #### C MP #### [facility] [address] [place] [address] Dr. Juliocesar Young Protein [Mass/Vol] 6.3 g/dL Critically low 6.4-8.2 [facility] Comment on above: Performed By: #### C MP #### [facility] [address] [place] [address] Dr. Juliocesar Young Sodium [Moles/Vol] 144 mmol/L Normal 136-145 [facility] Comment on above: Performed By: #### C MP #### [facility] [address] [place] [address] Dr. Juliocesar Young Urea nitrogen [Mass/Vol] 9.0 mg/dL Normal 7.0-18.0 [facility] Comment on above: Performed By: #### C MP #### [facility] [address] [place] [address] Dr. Juliocesar Young Urea nitrogen/Creatinine [Mass ratio] 15.0 mg/mg Normal [facility] Comment on above: Performed By: #### C MP #### [facility] [address] [place] [address] Dr. Juliocesar Young URIC ACID SERUMon 10-11-2022 Urate [Mass/Vol] 3.1 mg/dL Normal 2.6-6.0 [facility] Comment on above: Performed By: #### C MP #### [facility] [address] [place] [address] Dr. Juliocesar Young CBC AUTO DIFFon 07-18-2022 BASO # 0.1 103/ul Normal 0.0-0.1 [facility] Comment on above: Performed By: #### O VAPE #### [facility] [address] [place] [address] Dr. Juliocesar Young Basophils/100 WBC (Bld) 0.6 % Normal 0.2-2.0 [facility] Comment on above: Performed By: #### O VAPE #### [facility] [address] [place] [address] Dr. Juliocesar Young EO # 0.1 103/ul Normal 0.0-0.7 [facility] Comment on above: Performed By: #### O VAPE #### [facility] [address] [place] [address] Dr. Juliocesar Young Eosinophils/100 WBC (Bld) 1.4 % Normal 0.9-7.0 [facility] Comment on above: Performed By: #### O VAPE #### [facility] [address] [place] [address] Dr. Juliocesar Young Erythrocyte distribution width (RBC) [Ratio] 13.1 % Normal 11.0-15.0 [facility] Comment on above: Performed By: #### O VAPE #### [facility] [address] [place] [address] Dr. Juliocesar Young Hematocrit (Bld) [Volume fraction] 41.5 % Normal 36.0-48.0 [facility] Comment on above: Performed By: #### O VAPE #### [facility] [address] [place] [address] Dr. Juliocesar Young Hemoglobin (Bld) [Mass/Vol] 14.2 g/dL Normal 12.0-16.0 [facility] Comment on above: Performed By: #### O VAPE #### [facility] [address] [place] [address] Dr. Juliocesar Young IG # 0.03 10e3/ul Normal 0.00-0.03 [facility] Comment on above: Performed By: #### O VAPE #### [facility] [address] [place] [address] Dr. Juliocesar Young IG % 0.4 % Normal 0.0-0.5 [facility] Comment on above: Performed By: #### O VAPE #### [facility] [address] [place] [address] Dr. Juliocesar Young LYMPH # 1.2 103/ul Normal 1.2-3.8 [facility] Comment on above: Performed By: #### O VAPE #### [facility] [address] [place] [address] Dr. Juliocesar Young Lymphocytes/100 WBC (Bld) 15.4 % Critically low 20.5-60.0 [facility] Comment on above: Performed By: #### O VAPE #### [facility] [address] [place] [address] Dr. Juliocesar Young MANUAL DIFF REQ NO Normal [facility] Comment on above: Performed By: #### O VAPE #### [facility] [address] [place] [address] Dr. Juliocesar Young MCH (RBC) [Entitic mass] 31.0 pg Normal 26.7-34.0 [facility] Comment on above: Performed By: #### O VAPE #### [facility] [address] [place] [address] Dr. Juliocesar Young MCHC (RBC) [Mass/Vol] 34.2 g/dL Normal 29.9-35.2 [facility] Comment on above: Performed By: #### O VAPE #### [facility] [address] [place] [address] Dr. Juliocesar Young MCV (RBC) [Entitic vol] 90.6 fL Normal 81.0-99.0 [facility] Comment on above: Performed By: #### O VAPE #### [facility] [address] [place] [address] Dr. Juliocesar Young MONO # 0.8 103/ul Normal 0.3-0.8 [facility] Comment on above: Performed By: #### O VAPE #### [facility] [address] [place] [address] Dr. Juliocesar Young Monocytes/100 WBC (Bld) 9.9 % Normal 1.7-12.0 [facility] Comment on above: Performed By: #### O VAPE #### [facility] [address] [place] [address] Dr. Juliocesar Young NEUT # 5.7 103/ul Normal 1.4-6.5 [facility] Comment on above: Performed By: #### O VAPE #### [facility] [address] [place] [address] Dr. Juliocesar Young Neutrophils/100 WBC (Bld) 72.3 % Normal 43.0-75.0 [facility] Comment on above: Performed By: #### O VAPE #### [facility] [address] [address] [address] Juliocesar Young Platelet mean volume (Bld) [Entitic vol] 10.7 fL Normal 9.5-13.5 [facility] Comment on above: Performed By: #### O VAPE #### [facility] [address] [place] [address] Dr. Juliocesar Young PLT 199 103/ul Normal 150-450 [facility] Comment on above: Performed By: #### O VAPE #### [facility] [address] [address] [address] Juliocesar Young RBC 4.58 106/ul Normal 4.20-5.40 [facility] Comment on above: Performed By: #### O VAPE #### [facility] [address] [place] [address] Dr. Juliocesar Young WBC 7.9 103/ul Normal 4.0-11.0 [facility] Comment on above: Performed By: #### O VAPE #### [facility] [address] [place] [address] Dr. Juliocesar Young LDHon 07-18-2022 LDH 169 U/L Normal 81-234 [facility] Comment on above: Performed By: #### L ACTFQ #### [facility] [address] [place] [address] Dr. Juliocesar Young PHOSPHORUSon 07-18-2022 Phosphate [Mass/Vol] 3.5 mg/dL Normal 2.6-4.7 [facility] Comment on above: Performed By: #### L ACTFQ #### [facility] [address] [place] [address] Dr. Juliocesar Young PROF 14(COMP METB)on 022 Albumin [Mass/Vol] 3.5 g/dL Normal 3.4-5.0 [facility] Comment on above: Performed By: #### L ACTFQ #### [facility] [address] [place] [address] Dr. Juliocesar Young Albumin/Globulin [Mass ratio] 1.0 {ratio} Normal [facility] Comment on above: Performed By: #### L ACTFQ #### [facility] [address] [address] [address] Juliocesar Young ALP [Catalytic activity/Vol] 103 U/L Normal 46-116 [facility] Comment on above: Performed By: #### L ACTFQ #### [facility] [address] [address] [address] Juliocesar Young ALT [Catalytic activity/Vol] 10 U/L Critically low 14-59 [facility] Comment on above: Performed By: #### L ACTFQ #### [facility] [address] [address] [address] Juliocesar Young Anion gap [Moles/Vol] 11.9 mmol/L Normal [facility] Comment on above: Performed By: #### L ACTFQ #### [facility] [address] [address] [address] Juliocesar Young AST [Catalytic activity/Vol] 11 U/L Critically low 15-37 [facility] Comment on above: Performed By: #### L ACTFQ #### [facility] [address] [address] [address] Juliocesar Young Bilirubin [Mass/Vol] 0.4 mg/dL Normal 0.2-1.0 [facility] Comment on above: Performed By: #### L ACTFQ #### [facility] [address] [address] [address] Juliocesar Young Calcium [Mass/Vol] 8.7 mg/dL Normal 8.5-10.1 [facility] Comment on above: Performed By: #### L ACTFQ #### [facility] [address] [address] [address] Juliocesar Young Chloride [Moles/Vol] 105 mmol/L Normal 98-107 [facility] Comment on above: Performed By: #### L ACTFQ #### [facility] [address] [address] [address] Juliocesar Young CO2 [Moles/Vol] 25.1 mmol/L Normal 21.0-32.0 [facility] Comment on above: Performed By: #### L ACTFQ #### [facility] [address] [address] [address] Juliocesar Young Creatinine [Mass/Vol] 0.68 mg/dL Normal 0.55-1.02 [facility] Comment on above: Performed By: #### L ACTFQ #### [facility] [address] [address] [address] Juliocesar Young EGFR-AF JAPANESE >60 Normal >=60 [facility] Comment on above: Performed By: #### L ACTFQ #### [facility] [address] [address] [address] Juliocesar Young EGFR-NON AF JAPANESE >60 Normal >=60 [facility] Comment on above: Performed By: #### L ACTFQ #### [facility] [address] [place] [address] Dr. Juliocesar Young Globulin (S) [Mass/Vol] 3.6 g/dL Normal [facility] Comment on above: Performed By: #### L ACTFQ #### [facility] [address] [address] [address] Juliocesar Young Glucose [Mass/Vol] 101 mg/dL Normal 74-106 [facility] Comment on above: Performed By: #### L ACTFQ #### [facility] [address] [place] [address] Dr. Juliocesar Young Potassium [Moles/Vol] 4.0 mmol/L Normal 3.5-5.1 [facility] Comment on above: Performed By: #### L ACTFQ #### [facility] [address] [address] [address] Juliocesar Young Protein [Mass/Vol] 7.1 g/dL Normal 6.4-8.2 [facility] Comment on above: Performed By: #### L ACTFQ #### [facility] [address] [address] [address] Juliocesar Young Sodium [Moles/Vol] 138 mmol/L Normal 136-145 [facility] Comment on above: Performed By: #### L ACTFQ #### [facility] [address] [place] [address] Dr. Juliocesar Young Urea nitrogen [Mass/Vol] 9.0 mg/dL Normal 7.0-18.0 [facility] Comment on above: Performed By: #### L ACTFQ #### [facility] [address] [place] [address] Dr. Juliocesar Young Urea nitrogen/Creatinine [Mass ratio] 13.2 mg/mg Normal [facility] Comment on above: Performed By: #### L ACTFQ #### [facility] [address] [place] [address] Dr. Juliocesar Young URIC ACID SERUMon 07-18-2022 Urate [Mass/Vol] 2.5 mg/dL Critically low 2.6-6.0 [facility] Comment on above: Performed By: #### O VAPE #### [facility] [address] [place] [address] Dr. Juliocesar Young CBC AUTO DIFFon 04-04-2022 BASO # 0.0 103/ul Normal 0.0-0.1 [facility] Comment on above: Performed By: #### U JORI, PHOS, CMP, LDH #### [facility] [address] [place] [address] Dr. Juliocesar Young Basophils/100 WBC (Bld) 0.7 % Normal 0.2-2.0 [facility] Comment on above: Performed By: #### U JORI, PHOS, CMP, LDH #### [facility] [address] [place] [address] Dr. Juliocesar Young EO # 0.1 103/ul Normal 0.0-0.7 [facility] Comment on above: Performed By: #### U JORI, PHOS, CMP, LDH #### [facility] [address] [place] [address] Dr. Juliocesar Young Eosinophils/100 WBC (Bld) 2.5 % Normal 0.9-7.0 [facility] Comment on above: Performed By: #### U JORI, PHOS, CMP, LDH #### [facility] [address] [place] [address] Dr. Juliocesar Young Erythrocyte distribution width (RBC) [Ratio] 14.1 % Normal 11.0-15.0 [facility] Comment on above: Performed By: #### U JORI, PHOS, CMP, LDH #### [facility] [address] [place] [address] Dr. Juliocesar Young Hematocrit (Bld) [Volume fraction] 43.7 % Normal 36.0-48.0 [facility] Comment on above: Performed By: #### U JORI, PHOS, CMP, LDH #### [facility] [address] [place] [address] Dr. Juliocesar Young Hemoglobin (Bld) [Mass/Vol] 14.5 g/dL Normal 12.0-16.0 [facility] Comment on above: Performed By: #### U JORI, PHOS, CMP, LDH #### [facility] [address] [place] [address] Dr. Juliocesar Young IG # 0.01 10e3/ul Normal 0.00-0.03 [facility] Comment on above: Performed By: #### U JORI, PHOS, CMP, LDH #### [facility] [address] [place] [address] Dr. Juliocesar Young IG % 0.2 % Normal 0.0-0.5 [facility] Comment on above: Performed By: #### U JORI, PHOS, CMP, LDH #### [facility] [address] [place] [address] Dr. Juliocesar Young LYMPH # 1.2 103/ul Normal 1.2-3.8 [facility] Comment on above: Performed By: #### U JORI, PHOS, CMP, LDH #### [facility] [address] [place] [address] Dr. Juliocesar Young Lymphocytes/100 WBC (Bld) 26.6 % Normal 20.5-60.0 [facility] Comment on above: Performed By: #### U JORI, PHOS, CMP, LDH #### [facility] [address] [place] [address] Dr. Juliocesar Young MANUAL DIFF REQ NO Normal [facility] Comment on above: Performed By: #### U JORI, PHOS, CMP, LDH #### [facility] [address] [place] [address] Dr. Juliocesar Young MCH (RBC) [Entitic mass] 30.0 pg Normal 26.7-34.0 [facility] Comment on above: Performed By: #### U JORI, PHOS, CMP, LDH #### [facility] [address] [place] [address] Dr. Juliocesar Young MCHC (RBC) [Mass/Vol] 33.2 g/dL Normal 29.9-35.2 [facility] Comment on above: Performed By: #### U JORI, PHOS, CMP, LDH #### [facility] [address] [place] [address] Dr. Juliocesar Young MCV (RBC) [Entitic vol] 90.5 fL Normal 81.0-99.0 [facility] Comment on above: Performed By: #### U JORI, PHOS, CMP, LDH #### [facility] [address] [place] [address] Dr. Juliocesar Young MONO # 0.6 103/ul Normal 0.3-0.8 [facility] Comment on above: Performed By: #### U JORI, PHOS, CMP, LDH #### [facility] [address] [place] [address] Dr. Juliocesar Young Monocytes/100 WBC (Bld) 13.0 % Critically high 1.7-12.0 [facility] Comment on above: Performed By: #### U JORI, PHOS, CMP, LDH #### [facility] [address] [place] [address] Dr. Juliocesar Young NEUT # 2.5 103/ul Normal 1.4-6.5 [facility] Comment on above: Performed By: #### U JORI, PHOS, CMP, LDH #### [facility] [address] [place] [address] Dr. Juliocesar Young Neutrophils/100 WBC (Bld) 57.0 % Normal 43.0-75.0 [facility] Comment on above: Performed By: #### U JORI, PHOS, CMP, LDH #### [facility] [address] [address] [address] Juliocesar Young Platelet mean volume (Bld) [Entitic vol] 11.0 fL Normal 9.5-13.5 [facility] Comment on above: Performed By: #### U JORI, PHOS, CMP, LDH #### [facility] [address] [address] [address] Juliocesar Young PLT 156 103/ul Normal 150-450 [facility] Comment on above: Performed By: #### U JORI, PHOS, CMP, LDH #### [facility] [address] [place] [address] Dr. Juliocesar Young RBC 4.83 106/ul Normal 4.20-5.40 [facility] Comment on above: Performed By: #### U JORI, PHOS, CMP, LDH #### [facility] [address] [address] [address] Juliocesar Young WBC 4.3 103/ul Normal 4.0-11.0 [facility] Comment on above: Performed By: #### U JORI, PHOS, CMP, LDH #### [facility] [address] [place] [address] Dr. Juliocesar Young LDHon 04-04-2022 LDH 256 U/L Critically high 81-234 [facility] Comment on above: Performed By: #### U JORI, PHOS, CMP, LDH #### [facility] [address] [place] [address] Dr. Juliocesar Young PHOSPHORUSon 04-04-2022 Phosphate [Mass/Vol] 3.4 mg/dL Normal 2.6-4.7 [facility] Comment on above: Performed By: #### U JORI, PHOS, CMP, LDH #### [facility] [address] [place] [address] Dr. Juliocesar Young PROF 14(COMP METB)on 022 Albumin [Mass/Vol] 3.6 g/dL Normal 3.4-5.0 [facility] Comment on above: Performed By: #### U JORI, PHOS, CMP, LDH #### [facility] [address] [address] [address] Juliocesar Young Albumin/Globulin [Mass ratio] 1.2 {ratio} Normal [facility] Comment on above: Performed By: #### U JORI, PHOS, CMP, LDH #### [facility] [address] [address] [address] Juliocesar Young ALP [Catalytic activity/Vol] 66 U/L Normal 46-116 [facility] Comment on above: Performed By: #### U JOIR, PHOS, CMP, LDH #### [facility] [address] [place] [address] Dr. Juliocesar Young ALT [Catalytic activity/Vol] 38 U/L Normal 14-59 [facility] Comment on above: Performed By: #### U JORI, PHOS, CMP, LDH #### [facility] [address] [place] [address] Dr. Juliocesar Young Anion gap [Moles/Vol] 14.7 mmol/L Normal [facility] Comment on above: Performed By: #### U JORI, PHOS, CMP, LDH #### [place] [facility] [address] [place] [address] Dr. Juliocesar Young AST [Catalytic activity/Vol] 24 U/L Normal 15-37 [facility] Comment on above: Performed By: #### U JORI, PHOS, CMP, LDH #### [facility] [address] [place] [address] Dr. Juliocesar Young Bilirubin [Mass/Vol] 0.6 mg/dL Normal 0.2-1.0 [facility] Comment on above: Performed By: #### U JORI, PHOS, CMP, LDH #### [facility] [address] [place] [address] Dr. Juliocesar Young Calcium [Mass/Vol] 8.8 mg/dL Normal 8.5-10.1 [facility] Comment on above: Performed By: #### U JORI, PHOS, CMP, LDH #### [facility] [address] [place] [address] Dr. Juliocesar Young Chloride [Moles/Vol] 108 mmol/L Critically high 98-107 [facility] Comment on above: Performed By: #### U JORI, PHOS, CMP, LDH #### [facility] [address] [address] [address] Juliocesar Young CO2 [Moles/Vol] 21.5 mmol/L Normal 21.0-32.0 [facility] Comment on above: Performed By: #### U JORI, PHOS, CMP, LDH #### [facility] [address] [address] [address] Juliocesar Young Creatinine [Mass/Vol] 0.63 mg/dL Normal 0.55-1.02 [facility] Comment on above: Performed By: #### U JORI, PHOS, CMP, LDH #### [facility] [address] [address] [address] Juliocesar Young EGFR-AF JAPANESE >60 Normal >=60 [facility] Comment on above: Performed By: #### U JORI, PHOS, CMP, LDH #### [facility] [address] [address] [address] Juliocesar Young EGFR-NON AF JAPANESE >60 Normal >=60 [facility] Comment on above: Performed By: #### U JORI, PHOS, CMP, LDH #### [facility] [address] [address] [address] Juliocesar Young Globulin (S) [Mass/Vol] 3.1 g/dL Normal [facility] Comment on above: Performed By: #### U JORI, PHOS, CMP, LDH #### [facility] [address] [address] [address] Juliocesar Young Glucose [Mass/Vol] 116 mg/dL Critically high 74-106 [facility] Comment on above: Performed By: #### U JORI, PHOS, CMP, LDH #### [facility] [address] [address] [address] Juliocesar Young Potassium [Moles/Vol] 4.2 mmol/L Normal 3.5-5.1 [facility] Comment on above: Performed By: #### U JORI, PHOS, CMP, LDH #### [facility] [address] [address] [address] Juliocesar Young Protein [Mass/Vol] 6.7 g/dL Normal 6.4-8.2 [facility] Comment on above: Performed By: #### U JORI, PHOS, CMP, LDH #### [facility] [address] [address] [address] Juliocesar Young Sodium [Moles/Vol] 140 mmol/L Normal 136-145 [facility] Comment on above: Performed By: #### U JORI, PHOS, CMP, LDH #### [facility] [address] [place] [address] Dr. Juliocesar Young Urea nitrogen [Mass/Vol] 7.0 mg/dL Normal 7.0-18.0 [facility] Comment on above: Performed By: #### U JORI, PHOS, CMP, LDH #### [facility] [address] [address] [address] Juliocesar Young Urea nitrogen/Creatinine [Mass ratio] 11.1 mg/mg Normal [facility] Comment on above: Performed By: #### U JORI, PHOS, CMP, LDH #### [facility] [address] [address] [address] Juliocesar Young URIC ACID SERUMon 04-04-2022 Urate [Mass/Vol] 3.2 mg/dL Normal 2.6-6.0 [facility] Comment on above: Performed By: #### U JORI, PHOS, CMP, LDH #### [facility] [address] [place] [address] Dr. Juliocesar Young OVA AND PARASITE EXAMINATION on 03-22-2022 Ova + Parasite Exam Final report Normal [facility] Comment on above: Result Comment: Thes e results were obtained using wet preparation(s) and trichrome stained smear. This test does not include testing for Cryptosporidium parvum, Cyclospora, or Microsporidia. Performed By: #### O VAPE #### [facility] [address] [place] [address] Dr. Juliocesar Young Result 1 Comment Normal [facility] Comment on above: Result Comment: No o va, cysts, or parasites seen. . One negative specimen does not rule out the possibility of a parasitic infection. Performed By: #### O VAPE #### [facility] [address] [address] [address] Juliocesar Young LACTOFERRIN FECAL QUANTon Lactoferrin, Fecal, Quant. <1.00 Normal 0.00-7.24 [facility] Comment on above: Result Comment: Re sults [...] (IBS). Performed By: #### L ACTFQ #### [facility] [address] [address] [address] Juliocesar Young STOOL CULTUREon 03-20-2022 Campylobacter Culture Final report Normal [facility] Comment on above: Performed By: #### U JORI, PHOS, CMP, LDH #### [facility] [address] [place] [address] Dr. Juliocesar Young E coli Shiga Toxin EIA Negative Normal Negative [facility] Comment on above: Performed By: #### U JORI, PHOS, CMP, LDH #### [facility] [address] [address] [address] Juliocesar Young Result 1 Comment Normal [facility] Comment on above: Result Comment: No S almonella or Shigella recovered. Performed By: #### U JORI, PHOS, CMP, LDH #### [facility] [address] [address] [address] Juliocesar Young Result Comment: No C ampylobacter species isolated. Salmonella/Shigella Screen Final report Normal [facility] Comment on above: Performed By: #### U JORI, PHOS, CMP, LDH #### [facility] [address] [place] [address] Dr. Juliocesar Young C. DIFF PCRon 03-16-2022 C. DIFFICILE PCR Negative Normal NEGATIVE [facility] Comment on above: Performed By: #### L ACTFQ #### [facility] [address] [place] [address] Dr. Juliocesar Young OCC BLD IMMUNO SCREENon 03-06 OCCULT BLOOD Negative Normal NEGATIVE [facility] Comment on above: Performed By: #### U JORI, PHOS, CMP, LDH #### [facility] [address] [place] [address] Dr. Juliocesar Young CBC AUTO DIFFon 03-15-2022 BASO # 0.1 103/ul Normal 0.0-0.1 [facility] Comment on above: Performed By: #### O VAPE #### [facility] [address] [place] [address] Dr. Juliocesar Young Basophils/100 WBC (Bld) 1.0 % Normal 0.2-2.0 [facility] Comment on above: Performed By: #### O VAPE #### [facility] [address] [place] [address] Dr. Juliocesar Young EO # 0.1 103/ul Normal 0.0-0.7 [facility] Comment on above: Performed By: #### O VAPE #### [facility] [address] [place] [address] Dr. Juliocesar Young Eosinophils/100 WBC (Bld) 2.2 % Normal 0.9-7.0 [facility] Comment on above: Performed By: #### O VAPE #### [facility] [address] [place] [address] Dr. Juliocesar Young Erythrocyte distribution width (RBC) [Ratio] 13.1 % Normal 11.0-15.0 [facility] Comment on above: Performed By: #### O VAPE #### [facility] [address] [place] [address] Dr. Juliocesar Young Hematocrit (Bld) [Volume fraction] 41.0 % Normal 36.0-48.0 [facility] Comment on above: Performed By: #### O VAPE #### [facility] [address] [place] [address] Dr. Juliocesar Young Hemoglobin (Bld) [Mass/Vol] 13.9 g/dL Normal 12.0-16.0 [facility] Comment on above: Performed By: #### O VAPE #### [facility] [address] [place] [address] Dr. Juliocesar Young IG # 0.01 10e3/ul Normal 0.00-0.03 [facility] Comment on above: Performed By: #### O VAPE #### [facility] [address] [place] [address] Dr. Juliocesar Young IG % 0.2 % Normal 0.0-0.5 [facility] Comment on above: Performed By: #### O VAPE #### [facility] [address] [place] [address] Dr. Juliocesar Young LYMPH # 1.0 103/ul Critically low 1.2-3.8 [facility] Comment on above: Performed By: #### O VAPE #### [facility] [address] [place] [address] Dr. Juliocesar Young Lymphocytes/100 WBC (Bld) 19.4 % Critically low 20.5-60.0 [facility] Comment on above: Performed By: #### O VAPE #### [facility] [address] [place] [address] Dr. Juliocesar Young MANUAL DIFF REQ NO Normal [facility] Comment on above: Performed By: #### O VAPE #### [facility] [address] [place] [address] Dr. Juliocesar Young MCH (RBC) [Entitic mass] 30.1 pg Normal 26.7-34.0 [facility] Comment on above: Performed By: #### O VAPE #### [facility] [address] [place] [address] Dr. Juliocesar Young MCHC (RBC) [Mass/Vol] 33.9 g/dL Normal 29.9-35.2 [facility] Comment on above: Performed By: #### O VAPE #### [facility] [address] [address] [address] Juliocesar Young MCV (RBC) [Entitic vol] 88.7 fL Normal 81.0-99.0 [facility] Comment on above: Performed By: #### O VAPE #### [facility] [address] [address] [address] Juliocesar Young MONO # 0.8 103/ul Normal 0.3-0.8 [facility] Comment on above: Performed By: #### O VAPE #### [facility] [address] [place] [address] Dr. Juliocesar Young Monocytes/100 WBC (Bld) 15.2 % Critically high 1.7-12.0 [facility] Comment on above: Performed By: #### O VAPE #### [facility] [address] [place] [address] Dr. Juliocesar Young NEUT # 3.1 103/ul Normal 1.4-6.5 [facility] Comment on above: Performed By: #### O VAPE #### [facility] [address] [place] [address] Dr. Juliocesar Young Neutrophils/100 WBC (Bld) 62.0 % Normal 43.0-75.0 [facility] Comment on above: Performed By: #### O VAPE #### [facility] [address] [place] [address] Dr. Juliocesar Young Platelet mean volume (Bld) [Entitic vol] 10.9 fL Normal 9.5-13.5 [facility] Comment on above: Performed By: #### O VAPE #### [facility] [address] [place] [address] Dr. Juliocesar Young PLT 175 103/ul Normal 150-450 [facility] Comment on above: Performed By: #### O VAPE #### [facility] [address] [place] [address] Dr. Juliocesar Young RBC 4.62 106/ul Normal 4.20-5.40 [facility] Comment on above: Performed By: #### O VAPE #### [facility] [address] [address] [address] Juliocesar Young WBC 5.1 103/ul Normal 4.0-11.0 [facility] Comment on above: Performed By: #### O VAPE #### [facility] [address] [place] 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 Normal [facility] Comment on above: Performed By: #### U JORI, PHOS, CMP, LDH #### [facility] [address] [place] [address] Dr. Juliocesar Young Microscopic examination of blood, culture Culture Observations: NO GROWTH AT 5 DAYS. Normal [facility] Comment on above: Performed By: #### U JORI, PHOS, CMP, LDH #### [facility] [address] [place] [address] Dr. Juliocesar Young ER URINE PROFILEon 2 Bilirubin Ql (U) Negative Normal NEGATIVE [facility] Comment on above: Performed By: #### O VAPE #### [facility] [address] [place] [address] Dr. Juliocesar Young Clarity (U) CLEAR Normal CLEAR [facility] Comment on above: Performed By: #### O VAPE #### [facility] [address] [place] [address] Dr. Juliocesar Young Color (U) LT. YELLOW Normal YELLOW [facility] Comment on above: Performed By: #### O VAPE #### [facility] [address] [place] [address] Dr. Juliocesar Young ERUSOTERO A micrscopic examination will be performed if indicated. Normal [facility] Comment on above: Performed By: #### O VAPE #### [facility] [address] [place] [address] Dr. Juliocesar Young Glucose Ql (U) Negative Normal NEGATIVE [facility] Comment on above: Performed By: #### O VAPE #### [facility] [address] [place] [address] Dr. Juliocesar Young Hemoglobin Ql (U) Negative Normal NEGATIVE [facility] Comment on above: Performed By: #### O VAPE #### [facility] [address] [place] [address] Dr. Juliocesar Young Ketones Ql (U) 15 mg/dl Abnormal NEGATIVE [facility] Comment on above: Performed By: #### O VAPE #### [facility] [address] [place] [address] Dr. Juliocesar Young LEUKOCYTES Negative Normal NEGATIVE [facility] Comment on above: Performed By: #### O VAPE #### [facility] [address] [place] [address] Dr. Juliocesar Young Nitrite Ql (U) Negative Normal NEGATIVE [facility] Comment on above: Performed By: #### O VAPE #### [facility] [address] [place] [address] Dr. Juliocesar Young pH (U) 6.0 [pH] Normal 5-9 [facility] Comment on above: Performed By: #### O VAPE #### [facility] [address] [place] [address] Dr. Juliocesar Young SPEC GRAVITY 1.005 Normal 1.005-<=1.025 [facility] Comment on above: Performed By: #### O VAPE #### [facility] [address] [place] [address] Dr. Juliocesar Young UA PROTEIN Negative Normal NEGATIVE/ TRACE [facility] Comment on above: Performed By: #### O VAPE #### [facility] [address] [place] [address] Dr. Juliocesar Young UR MICRO IND NOT INDICATED Normal [facility] Comment on above: Performed By: #### O VAPE #### [facility] [address] [place] [address] Dr. Juliocesar Young Urobilinogen Qn (U) 0.2 {Niharika'U}/dL Normal 0.2 - 1. 0 [facility] Comment on above: Performed By: #### O VAPE #### [facility] [address] [place] [address] Dr. Juliocesar Young LACTATE/LACTIC ACIDon 2021 Lactate [Moles/Vol] 1.0 mmol/L Normal 0.4-1.9 [facility] Comment on above: Performed By: #### U JORI, PHOS, CMP, LDH #### [facility] [address] [place] [address] Dr. Juliocesar Young LIPASEon 03-15-2022 Lipase [Catalytic activity/Vol] 77.0 U/L Normal 73.0-393.0 [facility] Comment on above: Performed By: #### U JORI, PHOS, CMP, LDH #### [facility] [address] [place] [address] Dr. Juliocesar Young PROF 14(COMP METB)on 022 Albumin [Mass/Vol] 3.8 g/dL Normal 3.4-5.0 [facility] Comment on above: Performed By: #### U JORI, PHOS, CMP, LDH #### [facility] [address] [place] [address] Dr. Juliocesar Young Albumin/Globulin [Mass ratio] 1.2 {ratio} Normal [facility] Comment on above: Performed By: #### U JORI, PHOS, CMP, LDH #### [facility] [address] [place] [address] Dr. Juliocesar Young ALP [Catalytic activity/Vol] 86 U/L Normal 46-116 [facility] Comment on above: Performed By: #### U JORI, PHOS, CMP, LDH #### [facility] [address] [place] [address] Dr. Juliocesar Young ALT [Catalytic activity/Vol] 19 U/L Normal 14-59 [facility] Comment on above: Performed By: #### U JORI, PHOS, CMP, LDH #### [facility] [address] [place] [address] Dr. Juliocesar Young Anion gap [Moles/Vol] 13.0 mmol/L Normal [facility] Comment on above: Performed By: #### U JORI, PHOS, CMP, LDH #### [facility] [address] [place] [address] Dr. Juliocesar Young AST [Catalytic activity/Vol] 20 U/L Normal 15-37 [facility] Comment on above: Performed By: #### U JORI, PHOS, CMP, LDH #### [facility] [address] [place] [address] Dr. Juliocesar Young Bilirubin [Mass/Vol] 1.1 mg/dL Critically high 0.2-1.0 [facility] Comment on above: Performed By: #### U JORI, PHOS, CMP, LDH #### [facility] [address] [place] [address] Dr. Juliocesar Young Calcium [Mass/Vol] 8.9 mg/dL Normal 8.5-10.1 [facility] Comment on above: Performed By: #### U JORI, PHOS, CMP, LDH #### [facility] [address] [place] [address] Dr. Juliocesar Young Chloride [Moles/Vol] 103 mmol/L Normal 98-107 [facility] Comment on above: Performed By: #### U JORI, PHOS, CMP, LDH #### [facility] [address] [address] [address] Juliocesar Young CO2 [Moles/Vol] 26.6 mmol/L Normal 21.0-32.0 [facility] Comment on above: Performed By: #### U JORI, PHOS, CMP, LDH #### [facility] [address] [address] [address] Juliocesar Young Creatinine [Mass/Vol] 0.68 mg/dL Normal 0.55-1.02 [facility] Comment on above: Performed By: #### U JORI, PHOS, CMP, LDH #### [facility] [address] [address] [address] Juliocesar Young EGFR-AF JAPANESE >60 Normal >=60 [facility] Comment on above: Performed By: #### U JORI, PHOS, CMP, LDH #### [facility] [address] [address] [address] Juliocesar Young EGFR-NON AF JAPANESE >60 Normal >=60 [facility] Comment on above: Performed By: #### U JORI, PHOS, CMP, LDH #### [facility] [address] [address] [address] Juliocesar Young Globulin (S) [Mass/Vol] 3.3 g/dL Normal [facility] Comment on above: Performed By: #### U JORI, PHOS, CMP, LDH #### [facility] [address] [address] [address] Juliocesar Young Glucose [Mass/Vol] 90 mg/dL Normal 74-106 [facility] Comment on above: Performed By: #### U JORI, PHOS, CMP, LDH #### [facility] [address] [address] [address] Juliocesar Young Potassium [Moles/Vol] 3.6 mmol/L Normal 3.5-5.1 [facility] Comment on above: Performed By: #### U JORI, PHOS, CMP, LDH #### [facility] [address] [address] [address] Juliocesar Young Protein [Mass/Vol] 7.1 g/dL Normal 6.4-8.2 [facility] Comment on above: Performed By: #### U JORI, PHOS, CMP, LDH #### [facility] [address] [place] [address] Dr. Juliocesar Young Sodium [Moles/Vol] 139 mmol/L Normal 136-145 [facility] Comment on above: Performed By: #### U JORI, PHOS, CMP, LDH #### [facility] [address] [place] [address] Dr. Juliocesar Young Urea nitrogen [Mass/Vol] 6.0 mg/dL Critically low 7.0-18.0 [facility] Comment on above: Performed By: #### U JORI, PHOS, CMP, LDH #### [facility] [address] [place] [address] Dr. Juliocesar Young Urea nitrogen/Creatinine [Mass ratio] 8.8 mg/mg Normal [facility] Comment on above: Performed By: #### U JORI, PHOS, CMP, LDH #### [facility] [address] [place] [address] Dr. Juliocesar Young MRI THORACIC SPINE W WO CONT [facility] 03-13-2022 MRI THORACIC SPINE W WO CONTRAST [facility] Department of Radiology [address] [place] [id number] ===== Patient Name: DIAMOND GUERRERO : 1975 Sex: F Age: Race: White Pt. Location: 28 Patient Status: D Ordered Date: 02/09/2022 5:25:00 PM Completed Date: 03/13/2022 10:31 AM Requesting Provider: BOONE SALINAS Attending Provider: BOONE SALINAS Report Copy To: Signs & Symptoms: M48.04 Spinal stenosis, thoracic region I10 History: Mar, c-spine/ankle hardware, tubal clips (noted) Comments: Exam: [...] disc bulge and central disc protrusion with [id number] central canal stenosis and moderate right and mild to moderate left neural foraminal narrowing. IMPRESSION: Multilevel degenerative disc disease as above with central canal narrowing and neural foraminal narrowing noted. Electronically signed: Kandi Marquez. Transcribed by: [email or web address], User Resident: Electronically Signed by: KANDI MARQUEZ @ 03/14/2022 08:51 AM Normal [facility] CBC AUTO DIFFon 02-23-2022 BASO # 0.0 103/ul Normal 0.0-0.1 [facility] Comment on above: Performed By: #### U JORI, PHOS, CMP, LDH #### [facility] [address] [address] [address] Juliocesar Young Basophils/100 WBC (Bld) 0.4 % Normal 0.2-2.0 [facility] Comment on above: Performed By: #### U JORI, PHOS, CMP, LDH #### [facility] [address] [address] [address] Juliocesar Young EO # 0.1 103/ul Normal 0.0-0.7 [facility] Comment on above: Performed By: #### U JORI, PHOS, CMP, LDH #### [facility] [address] [address] [address] Juliocesar Young Eosinophils/100 WBC (Bld) 1.6 % Normal 0.9-7.0 [facility] Comment on above: Performed By: #### U JORI, PHOS, CMP, LDH #### [facility] [address] [address] [address] Juliocesar Young Erythrocyte distribution width (RBC) [Ratio] 13.2 % Normal 11.0-15.0 [facility] Comment on above: Performed By: #### U JORI, PHOS, CMP, LDH #### [facility] [address] [address] [address] Juliocesar Young Hematocrit (Bld) [Volume fraction] 42.4 % Normal 36.0-48.0 [facility] Comment on above: Performed By: #### U JORI, PHOS, CMP, LDH #### [facility] [address] [place] [address] Dr. Juliocesar Young Hemoglobin (Bld) [Mass/Vol] 14.3 g/dL Normal 12.0-16.0 [facility] Comment on above: Performed By: #### U JORI, PHOS, CMP, LDH #### [facility] [address] [place] [address] Dr. Juliocesar Young IG # 0.02 10e3/ul Normal 0.00-0.03 [facility] Comment on above: Performed By: #### U JORI, PHOS, CMP, LDH #### [facility] [address] [place] [address] Dr. Juliocesar Young IG % 0.3 % Normal 0.0-0.5 [facility] Comment on above: Performed By: #### U JORI, PHOS, CMP, LDH #### [facility] [address] [place] [address] Dr. Juliocesar Young LYMPH # 1.5 103/ul Normal 1.2-3.8 [facility] Comment on above: Performed By: #### U JORI, PHOS, CMP, LDH #### [facility] [address] [place] [address] Dr. Juliocesar Young Lymphocytes/100 WBC (Bld) 22.3 % Normal 20.5-60.0 [facility] Comment on above: Performed By: #### U JORI, PHOS, CMP, LDH #### [facility] [address] [place] [address] Dr. Juliocesar Young MANUAL DIFF REQ NO Normal [facility] Comment on above: Performed By: #### U JORI, PHOS, CMP, LDH #### [facility] [address] [place] [address] Dr. Juliocesar Young MCH (RBC) [Entitic mass] 30.1 pg Normal 26.7-34.0 [facility] Comment on above: Performed By: #### U JORI, PHOS, CMP, LDH #### [facility] [address] [place] [address] Dr. Juliocesar Young MCHC (RBC) [Mass/Vol] 33.7 g/dL Normal 29.9-35.2 [facility] Comment on above: Performed By: #### U JORI, PHOS, CMP, LDH #### [facility] [address] [place] [address] Dr. Juliocesar Young MCV (RBC) [Entitic vol] 89.3 fL Normal 81.0-99.0 [facility] Comment on above: Performed By: #### U JORI, PHOS, CMP, LDH #### [facility] [address] [place] [address] Dr. Juliocesar Young MONO # 0.8 103/ul Normal 0.3-0.8 [facility] Comment on above: Performed By: #### U JORI, PHOS, CMP, LDH #### [facility] [address] [place] [address] Dr. Juliocesar Young Monocytes/100 WBC (Bld) 11.7 % Normal 1.7-12.0 [facility] Comment on above: Performed By: #### U JORI, PHOS, CMP, LDH #### [facility] [address] [place] [address] Dr. Juliocesar Young NEUT # 4.3 103/ul Normal 1.4-6.5 [facility] Comment on above: Performed By: #### U JORI, PHOS, CMP, LDH #### [facility] [address] [place] [address] Dr. Juliocesar Young Neutrophils/100 WBC (Bld) 63.7 % Normal 43.0-75.0 [facility] Comment on above: Performed By: #### U JORI, PHOS, CMP, LDH #### [facility] [address] [place] [address] Dr. Juliocesar Young Platelet mean volume (Bld) [Entitic vol] 10.7 fL Normal 9.5-13.5 [facility] Comment on above: Performed By: #### U JORI, PHOS, CMP, LDH #### [facility] [address] [address] [address] Juliocesar Young PLT 190 103/ul Normal 150-450 [facility] Comment on above: Performed By: #### U JORI, PHOS, CMP, LDH #### [facility] [address] [address] [address] Juliocesar Young RBC 4.75 106/ul Normal 4.20-5.40 [facility] Comment on above: Performed By: #### U JORI, PHOS, CMP, LDH #### [facility] [address] [address] [address] Juliocesar Young WBC 6.8 103/ul Normal 4.0-11.0 [facility] Comment on above: Performed By: #### U JORI, PHOS, CMP, LDH #### [facility] [address] [place] [address] Dr. Juliocesar Young LDHon 02-23-2022 LDH 206 U/L Normal 81-234 [facility] Comment on above: Performed By: #### O VAPE #### [facility] [address] [place] [address] Dr. Juliocesar Young PHOSPHORUSon 02-23-2022 Phosphate [Mass/Vol] 3.8 mg/dL Normal 2.6-4.7 [facility] Comment on above: Performed By: #### O VAPE #### [facility] [address] [place] [address] Dr. Juliocesar Young PROF 14(COMP METB)on 022 Albumin [Mass/Vol] 3.3 g/dL Critically low 3.4-5.0 [facility] Comment on above: Performed By: #### O VAPE #### [facility] [address] [place] [address] Dr. Juliocesar Young Albumin/Globulin [Mass ratio] 0.9 {ratio} Normal [facility] Comment on above: Performed By: #### O VAPE #### [facility] [address] [place] [address] Dr. Juliocesar Young ALP [Catalytic activity/Vol] 90 U/L Normal 46-116 [facility] Comment on above: Performed By: #### O VAPE #### [facility] [address] [address] [address] Juliocesar Young ALT [Catalytic activity/Vol] 18 U/L Normal 14-59 [facility] Comment on above: Performed By: #### O VAPE #### [facility] [address] [address] [address] Juliocesar Young Anion gap [Moles/Vol] 12.0 mmol/L Normal [facility] Comment on above: Performed By: #### O VAPE #### [facility] [address] [address] [address] Juliocesar Young AST [Catalytic activity/Vol] 14 U/L Critically low 15-37 [facility] Comment on above: Performed By: #### O VAPE #### [facility] [address] [address] [address] Juliocesar Young Bilirubin [Mass/Vol] 0.4 mg/dL Normal 0.2-1.0 [facility] Comment on above: Performed By: #### O VAPE #### [facility] [address] [address] [address] Juliocesar Young Calcium [Mass/Vol] 8.4 mg/dL Critically low 8.5-10.1 [facility] Comment on above: Performed By: #### O VAPE #### [facility] [address] [address] [address] Juliocesar Young Chloride [Moles/Vol] 107 mmol/L Normal 98-107 [facility] Comment on above: Performed By: #### O VAPE #### [facility] [address] [address] [address] Juliocesar Young CO2 [Moles/Vol] 25.1 mmol/L Normal 21.0-32.0 [facility] Comment on above: Performed By: #### O VAPE #### [facility] [address] [address] [address] Juliocesar Young Creatinine [Mass/Vol] 0.64 mg/dL Normal 0.55-1.02 [facility] Comment on above: Performed By: #### O VAPE #### [facility] [address] [address] [address] Juliocesar Young EGFR-AF JAPANESE >60 Normal >=60 [facility] Comment on above: Performed By: #### O VAPE #### [facility] [address] [address] [address] Juliocesar Young EGFR-NON AF JAPANESE >60 Normal >=60 [facility] Comment on above: Performed By: #### O VAPE #### [facility] [address] [address] [address] Juliocesar Young Globulin (S) [Mass/Vol] 3.5 g/dL Normal [facility] Comment on above: Performed By: #### O VAPE #### [facility] [address] [address] [address] Juliocesar Young Glucose [Mass/Vol] 105 mg/dL Normal 74-106 [facility] Comment on above: Performed By: #### O VAPE #### [facility] [address] [address] [address] Juliocesar Young Potassium [Moles/Vol] 4.1 mmol/L Normal 3.5-5.1 [facility] Comment on above: Performed By: #### O VAPE #### [facility] [address] [address] [address] Juliocesar Young Protein [Mass/Vol] 6.8 g/dL Normal 6.4-8.2 [facility] Comment on above: Performed By: #### O VAPE #### [facility] [address] [address] [address] Juliocesar Young Sodium [Moles/Vol] 140 mmol/L Normal 136-145 [facility] Comment on above: Performed By: #### O VAPE #### [facility] [address] [address] [address] Juliocesar Young Urea nitrogen [Mass/Vol] 9.0 mg/dL Normal 7.0-18.0 [facility] Comment on above: Performed By: #### O VAPE #### [facility] [address] [place], [place] [address] [address] Juliocesar Young Urea nitrogen/Creatinine [Mass ratio] 14.1 mg/mg Normal [facility] Comment on above: Performed By: #### O VAPE #### [facility] [address] [place], [place] [address] [address]. Juliocesar Young URIC ACID SERUMon 02-23-2022 Urate [Mass/Vol] 2.6 mg/dL Normal 2.6-6.0 [facility] Comment on above: Performed By: #### O VAPE #### [facility] [address], [place] [address] Dr. Juliocesar Young Coding Summary.on 02-16-2022 Coding Summary. CD:[id number] Gh0 bWw+PGhlYWQ+MV9VTEAaE18 ggBIzxR3YO5mRFS4QKQVCWQ NABC3VGH2idRV2SIvsF7Cdm iAv FfaybPIyTB85EXy1ALC7hXe hLJizcE5sfEKlW2v4NwHzYC 98bA27SKfvNOPpOoA8VtXgw jsgbWFy F4vtUoAvzXRrAvd+PHRhYmx lIHdpZHRoPScxMDAlJyBzdH ltBJ9wPj5hDTArDMXqoCufh HNlOiBj m8efUFWoLVtbNK7grYadS8E isES1ELLic0u7Dc76zDF+PH DaYZR8tFgmJCujs834JjAgn 9ewHCN1 wXHyAVegBEM8Q12pp1V9GTC nUUIpUBT1bXE9xU6ruMjcwx uhE2FwjMJbKwG0JJE1sXOzx F5txFxa kvdexD3wDzx+E58VOY3ZWLK GHQ3YWmv0U7ExVpujbBK+PC 33ZWHcLY68lWEazWWam9tnc Kw8TqLj SYEkYWS6jBgoCEfax2TuRTA sR10tgEUpo0S1LCEroGxzeN RmOrLbxBM9hS6uCZxgybduv 2hvdzsn Cwbgo3aojw30cU44R69iJSn gONEgMVR8ARVkJDZvnJtwhh 1lqV5vCv4+XXjxx4ojb5iuo El7HgKx VFSpzfRboOyuRCM1r4CaLb8 2G6DouAigs6MrYeu4dd79gY Ofs2R9eQI9RMjtBUJucV3nX WxlZnQ6 GGNhWmJdgR31kTFxZBgeMx4 vxWcnkIwdVB6fUHYcoddgLV QbgD4uNADypEAhuShjTN0vC TBpbjtm h085MyJvYIJ5SRYmxITtW1X ytN0hEfNiSKAyRJMeM8PywK AfKUekY134WNkoZcX8EFEbe iBdP6Ci CZBkrOnsHwB0b9R8Ho4Hs1Y fpeabCIM1KLptKLC5LfE7Dr QeMzV8D6LoIut5LWPpnPimD G6bL6Ki VAFdeazgwucehRC5BKXhRVQ mpF35vLPzQGmjCe3bk8F6f9 73SQQaLHRmbI88Vv9ciNipN TBwdCBU fS6nghwsr8auotanGoJhABG bTWv3ZJw6QTAutKvyNrZjIE B4AmE8OLS8fWGcyQ4waAiku qxliG2c Oyc+M84tkC7tTYY8XCE0pku rVDAnbbTpLN42LA96P6RcGl wvdGFibGU+PGRpdiBzdHlsZ S3oNjWp y2zys4VfYFulT4DmEEJgYXr xTzg3TSInIDR9eGZ0gJ2mMW QcTZyof3S9uFB2G6HqkvXlm d1at6dm VULrLOkfV28mhPHcw1O7AGR ciCI8KKOrmJzmEkOxhY49Kb c+JPVqfRwoj5IyFpdim1vno 8cpfGs8 OmOhZRXpjwPxiOzvFPD9x2T uYk20P99pIYnrLTVuXUCyEH OyKPMupQldqp6ocX3yWq6+P GNvbCB3 bDE1oM4cQEXpLmO5QGzyI95 5QxAlxHXdTjqko5isa2uyfN z1RiRxHCAxnqEmyUviUFW8g 5DpYd52 I62vSFizLXReSDVkBAQxKMY fiXrufk6tiY4wTx8+PC9jb2 fibl58jL90rFK+UGPzHVZ8u WxlPSdw HVOkhK8zHOniXcX0KFZxMaH nvQ90wAVuZThnSj7waUjfhC dcCS7lUMAhrprkd102DxCrh 2xkIDEw xKGsVWpfINM7R37yv1R7ICG sTOEpBKD0rTQ4pM5lkWrgse ogbGVmdDsgdmVydGljYWwtY YswB628 IHRvcDsnPlBhdGllbnQgTmF fVSd0F7TkKex1CTBvuBpiCB 3pxJQiBVedTw3tgEgxrIrsC L1wFUMs rziva225QdMlc4zySJLsaFE fUCvhVKJ8J15sn8Z5XHTsLU MyATU1jOJ1rZ4zhTwapxeyo GVmdDsg iaHrvScaGKvwFLbqX703GDZ ltFtxIsSfvlBjCTLehCO8CD 27BN82rPWti5D1qZX4M8OgN GRpbmct bsfjgYT2VPRyRZGwkS96Lo4 clDikWj8nHCAcQSZ5ZRXaiQ AvH2HgsO7dWyWhIWZtVGZyE 3RleHQt PXrfM424PRstBvF0EJQihbS rK3JzTPXjrGevBbJ1p0C5Ee 9KW5J2WT59RR13rUTsf5W4w ZZ8T6Bb PHLxzifrexnykEL4YMRaGYZ yfZ75Ka2cpSeyEr9eDWAnPI M1AXIwvIXqY2TggB3cIqUgQ DAwMDAw E8PrrAYmLFqoO082LFqdWhN 0KOLxnzFtF3KfXCEplImoWv P0x5W7To0ZECm5WN69ND32m PMub5U3 gJY8E5JuRBUkxbviqltnpEJ 1NMHgUAYqgW65We8wmOyhRk 9vBCZwNAE7MYGczCWiD3Fmt T2fKxPw YFGmMSMhG9ObuMBgCBmjJ84 8XXvnYuI4XEMeggTdG3OvOO RerLxoFdV2d7K2Mp5ZQLNgH A51VJW3 lMN0HC70CV11S3YnPamuzSC ibGU+PHRhYmxlIHdpZHRoPS kaUBQqIlMjsFocXS1hSo7sX GVyLWNv yCdxkBXjCsNcf8xmOLKfXAy kPW2cuGelZ1CquYW5FGSwl4 j6Bc96W45tW4BnsPX+PGNvb YZ2fPI3 cN5dVwLlRtC5BEnlO592EoQ bpEUeHblmg2gti4bioXo3Xy J8ETPungPfvSqnJMH4f7XqP c06H46j IHdpZHRoPSIxNSUiIHZhbGl yql1yfL1sLs0+RQOxnRT9iN Z6mG8rIxGvStC4CHhqN869C nRvcCIv Lzbdu2dkm4wbmSk3UdZoZNC amfMlwQzmTDH8b1XkBu75M3 EitGxwa3DnVur5xo79sHHmk 8O4nHH5 M4MqVDQywyqqfCEmbQwaQR4 mUZMsucbiEGGzbO8mFCDwC7 j3LnUgLxB7JTjwQ7XdbaY4V DEwcHQg UBujKMU7P28yd8L8YKWfRML nEVT6kIE9wL0qlVghqmhqvP VmdDsgdmVydGljYWwtYWxpZ 246IHRv gPbcUWIxrK7iYBIoeQBgwMz rVY2cJGHyshlpGxXDBOHWFS lsWQ0LTBNONYG8E3YhOgs5E CBzdHls CS3esPMwSAzjWz0fbAhvzHr iGL7xMRVejqklQETogB4oTY PsmYWyrTseOR1uTMBngsueu 250OiAx ZVU1NRNhrFGyJ6YghB7dTsO aUJNeMQMxP3TjrYLiXOuwJ9 52XZjrYyU0RIDqqaRcT4VeS WFsaWdu NqA4o9L1Wt7mUI1oAW9vWIq 6LG84AG17hEQcy2E6uCL9M0 YnGATjtnlbousbpEI1IVCzY DUwaW47 qUJmMNxcJx2yo8R3r842WCC eSRDsdX98Sa2bfPywQUXkbZ BCcG4rdjthh1fycmmwSdTcF DAwMDt0 SZt7IXLvoBwrEyZdSDP1RlP 3TEE1tJSewF6tiNtmzdvhkO 9wOyc+QOmyYGSxjnN2T9UoG uv1JAJs vQchAW9spZOqZPqqDb0oyCm kkKkeOS3tGGElwenlCFSyyB 8cSLUjbRWtqYkyHB2bTCEur gbdx088 KyRgBZT6SLGewZVoD4GarD0 qAzLvBEWcOCLiK3YxnEXhJA aoH891LQumRdL0VDDbezWlX 2FsLWFs uGbkYpR7u0U8Ev1OSB6owOI 9I7DdGiy3USDjgHdqKI7wgF UqMOkcCb1hhWhdeUylCA2jS TBpbjtw ELVkkQ6iIFJcaPZhfDpgMQ7 sJBCktxvkr313QbBfECW2MD PuxVOkG0SdoG3mPrIiEFNeK RPlR5Vi tWSaAKrbU511EWndJbX9PXM zczHdA6SkWPQfgEnxJpI0x6 R7Ed3ToBFgRAPuBP01HA83Y C44C7Qa PjwvdGFibGU+PHRhYmxlIHd pZHRoPScxMDAlJyBzdHlsZT 0eYz0aPNCfQPVeeJrtsOOqZ sDns4nt OQXlDMqtLN0khMyiB2WgpKU 2OBSpx6n8Fc44B99zS6GkhW A+LHUpdOA0iYW4dN3xTePuP cA9BFrg J474FrJmmOUtIzsgn1org9n vyPx3BsTrYVBgvhIsmMezFZ D9q7XcQm78T86aRTumQAGmG SIyMCUi SLVcvRpudi0mpX5qGv1+PGN ciQT5sRF7iQ8lZxDdXzA0NG klD942ZkTfeNSsHxyhT97mW 3JvdXA+ FFVwTri5NKZlgDycWJ5cfOS lDUweJd7qXBL0FyTuAbTnHO ujH6AmKYHnyfvhdffguKB3K DAuMDUw yY49Vk3ceYlbYv5nVFIrEBA 1YYNkvUFmZ8CvaJ8jAnPoEJ XlYUYmP9DsvDQfJRxuY165D GxlZnQ7 YEMoupFjA7RnIRCddWcaRhE 9q2C5Vw6JgClysAWxRV1qIx AhKSb5J7JdXdl0NSBfgMsfS W8ooMFc XKyuDp8ebGozpYshCY0tTGI vmyzri042AkQie4oxYQXzwA HlPRwkXNG9Z02lr8S9ZZYbG DAwMDA7 jTG4eU5tlYpecefbiIMmyLn vupSekRiaOSeyTPjeU520WX GokKabYqVNPbx2H0LuCvs9L CBzdHls IF8ziNWiWPtjHr2hlNsrpPc oSX2eOLVjavisw705YdHrm0 dkQZFtvETsVIafXVA1M75dt 9M6XSJb PQPkRCV6qAH6aX5pnXstpmz gbGVmdDsgdmVydGljYWwtYW kvN923YYGhiYchGd7BUpt0B 9TzHyw7 PANabWhmQN0adHMiSVkfYw6 leAvluKteER3sBOTtuyzyh6 69JyGee1ghGNCvqYFcBMvoE DN6Q59z a6I5ECJpMIRpTSR1tUW9bC4 hbGlnbjogbGVmdDsgdmVydG haWFbxZQypI243STZsyDxeW lBheWVy OjwvdGQ+PP25gg53U8TyAon wJta5CGTaWJP8dIV2hP2tTM HiBOjng0T7pDC9A1AizzIqt c2jn2xi YXBz (more content not included)... Normal [facility] CTA CHESTon 02-08-2022 CTA CHEST [facility] Department of Radiology [address] [place] [id number] ===== Patient Name: DIAMOND GUERRERO : 1975 Sex: F Age: Race: White Pt. Location: 29 Patient Status: O Ordered Date: 02/08/2022 4:00:00 PM Completed Date: 02/08/2022 05:01 PM Requesting Provider: BOONE SALINAS Attending Provider: BOONE SALINAS Report Copy To: SELF, REFERRED Signs & Symptoms: R07.89 Other chest pain I10 History: [place], hold pt. until after doc is called with results [phone] Comments: , chronic lymphoid leukemia with chest [...] nodules. Electronically signed: Roxanna Thomas. 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 Current treatment obinutuzumab and acalabrutinib possible PE Consent for Treatmenton Consent for Treatment [id number] D:127 Normal [facility] US Abdomen, Limitedon 2021 US Abdomen, Limited [...] Roxanna Phoenix MD Transcribed by: WERNER Technologist: AD Normal [facility] Physician Orderon 01-31-2022 Physician Order [id number] D:127 Normal [facility] CBC W MANUAL DIFFon 01-27-20 22 ATYPICAL LYMPH # 0.57 103/ul Normal [facility] Comment on above: Performed By: #### U JORI, PHOS, CMP, LDH #### [facility] [address] [place] [address] Dr. Juliocesar Young ATYPICAL LYMPH % 5 % Normal [facility] Comment on above: Performed By: #### U JORI, PHOS, CMP, LDH #### [facility] [address] [address] [address] Juliocesar Young BAND # Normal 0.0-0.3 [facility] Comment on above: Performed By: #### U JORI, PHOS, CMP, LDH #### [facility] [address] [address] [address] Juliocesar Young BAND % Normal 0-5 [facility] Comment on above: Performed By: #### U JORI, PHOS, CMP, LDH #### [facility] [address] [address] [address] Juliocesar SOLOOM # 0.00 103/ul Normal 0.00-0.10 [facility] Comment on above: Performed By: #### U JORI, PHOS, CMP, LDH #### [facility] [address] [address] [address] Juliocesar Young BASOM % 0.0 % Critically low 0.2-2.0 [facility] Comment on above: Performed By: #### U JORI, PHOS, CMP, LDH #### [facility] [address] [address] [address] Juliocesar Young BLAST # Normal [facility] Comment on above: Performed By: #### U JORI, PHOS, CMP, LDH #### [facility] [address] [address] [address] Juliocesar Young BLAST % Normal [facility] Comment on above: Performed By: #### U JORI, PHOS, CMP, LDH #### [facility] [address] [address] [address] Juliocesar Young CORRECTED WBC Normal 4.0-11.[address] [facility] Comment on above: Performed By: #### U JORI, PHOS, CMP, LDH #### [facility] [address] [address] [address] Juliocesar Young EOS # 0.12 103/ul Normal 0.00-0.70 [facility] Comment on above: Performed By: #### U JORI, PHOS, CMP, LDH #### [facility] [address] [address] [address] Juliocesar Young EOS% 1.0 % Normal 0.9-7.0 [facility] Comment on above: Performed By: #### U JORI, PHOS, CMP, LDH #### [facility] [address] [address] [address] Juliocesar Young HCT 44.2 % Normal 36.0-48.0 [facility] Comment on above: Performed By: #### U JORI, PHOS, CMP, LDH #### [facility] [address] [address] [address] Juliocesar Young HGB 14.8 g/dl Normal 12.0-16.0 [facility] Comment on above: Performed By: #### U JORI, PHOS, CMP, LDH #### [facility] [address] [address] [address] Juliocesar Young LYMPHM # 5.17 103/ul Critically high 1.20-3.80 [facility] Comment on above: Performed By: #### U JORI, PHOS, CMP, LDH #### [facility] [address] [address] [address] Juliocesar Young LYMPHM% 45.0 % Normal 20.5-60.0 [facility] Comment on above: Performed By: #### U JORI, PHOS, CMP, LDH #### [facility] [address] [place] [address] Dr. Juliocesar Young MCH 30.5 pg Normal 26.7-34.0 [facility] Comment on above: Performed By: #### U JORI, PHOS, CMP, LDH #### [facility] [address] [place] [address] Dr. Juliocesar Young MCHC 33.5 g/dl Normal 29.9-35.2 [facility] Comment on above: Performed By: #### U JORI, PHOS, CMP, LDH #### [facility] [address] [place] [address] Dr. Juliocesar Young MCV 90.9 fL Normal 81.0-99.0 [facility] Comment on above: Performed By: #### U JORI, PHOS, CMP, LDH #### [facility] [address] [place] [address] Dr. Juliocesar Young METAMYELOCYTE # Normal [facility] Comment on above: Performed By: #### U JORI, PHOS, CMP, LDH #### [facility] [address] [place] [address] Dr. Juliocesar Young METAMYELOCYTE % Normal [facility] Comment on above: Performed By: #### U JORI, PHOS, CMP, LDH #### [facility] [address] [address] [address] Juliocesar Young MONOM# 0.81 103/ul Critically high 0.30-0.80 [facility] Comment on above: Performed By: #### U JORI, PHOS, CMP, LDH #### [facility] [address] [address] [address] Juliocesar Young MONOM% 7.0 % Normal 1.7-12.0 [facility] Comment on above: Performed By: #### U JORI, PHOS, CMP, LDH #### [facility] [address] [address] [address] Juliocesar Young MPV 10.1 fL Normal 9.5-13.5 [facility] Comment on above: Performed By: #### U JORI, PHOS, CMP, LDH #### [facility] [address] [address] [address] Juliocesar Young MYELOCYTE # Normal [facility] Comment on above: Performed By: #### U JORI, PHOS, CMP, LDH #### [facility] [address] [address] [address] Juliocesar Young MYELOCYTE % Normal [facility] Comment on above: Performed By: #### U JORI, PHOS, CMP, LDH #### [facility] [address] [address] [address] Juliocesar Young NRBC Normal [facility] Comment on above: Performed By: #### U JORI, PHOS, CMP, LDH #### [facility] [address] [address] [address] Juliocesar Young PLT 214 103/ul Normal 150-450 [facility] Comment on above: Performed By: #### U JORI, PHOS, CMP, LDH #### [facility] [address] [address] [address] Juliocesar Young RBC 4.86 106/ul Normal 4.20-5.40 [facility] Comment on above: Performed By: #### U JORI, PHOS, CMP, LDH #### [facility] [address] [address] [address] Juliocesar Young RDW 13.3 % Normal 11.0-15.0 [facility] Comment on above: Performed By: #### U JORI, PHOS, CMP, LDH #### [facility] [address] [address] [address] Juliocesar Young SEG # 4.83 103/ul Normal 1.40-6.50 [facility] Comment on above: Performed By: #### U JORI, PHOS, CMP, LDH #### [facility] [address] [address] [address] Juliocesar Young SEG % 42.0 % Critically low 43.0-75.0 [facility] Comment on above: Performed By: #### U JORI, PHOS, CMP, LDH #### [facility] [address] [place] [address] Dr. Juliocesar Young WBC 11.5 103/ul Critically high 4.0-11.0 [facility] Comment on above: Performed By: #### U JORI, PHOS, CMP, LDH #### [facility] [address] [address] [address] Juliocesar Young LDHon 01-26-2022 LDH 184 U/L Normal 81-234 [facility] Comment on above: Performed By: #### U JORI, PHOS, CMP, LDH #### [facility] [address] [address] [address] Juliocesar Young PHOSPHORUSon 01-26-2022 Phosphate [Mass/Vol] 3.0 mg/dL Normal 2.6-4.7 [facility] Comment on above: Performed By: #### U JORI, PHOS, CMP, LDH #### [facility] [facility] [address] [place] [address] Dr. Juliocesar Young PROF 14(COMP METB)on 022 Albumin [Mass/Vol] 3.4 g/dL Normal 3.4-5.0 [facility] Comment on above: Performed By: #### U JORI, PHOS, CMP, LDH #### [facility] [address] [address] [address] Juliocesar Young Albumin/Globulin [Mass ratio] 0.9 {ratio} Normal [facility] Comment on above: Performed By: #### U JORI, PHOS, CMP, LDH #### [facility] [address] [address] [address] Juliocesar Young ALP [Catalytic activity/Vol] 85 U/L Normal 46-116 [facility] Comment on above: Performed By: #### U JORI, PHOS, CMP, LDH #### [facility] [address] [address] [address] Juliocesar Young ALT [Catalytic activity/Vol] 20 U/L Normal 14-59 [facility] Comment on above: Performed By: #### U JORI, PHOS, CMP, LDH #### [facility] [address] [address] [address] Juliocesar Young Anion gap [Moles/Vol] 12.6 mmol/L Normal [facility] Comment on above: Performed By: #### U JORI, PHOS, CMP, LDH #### [facility] [address] [address] [address] Juliocesar Young AST [Catalytic activity/Vol] 12 U/L Critically low 15-37 [facility] Comment on above: Performed By: #### U JORI, PHOS, CMP, LDH #### [facility] [address] [address] [address] Juliocesar Young Bilirubin [Mass/Vol] 0.5 mg/dL Normal 0.2-1.0 [facility] Comment on above: Performed By: #### U JORI, PHOS, CMP, LDH #### [facility] [address] [address] [address] Juliocesar Young Calcium [Mass/Vol] 8.5 mg/dL Normal 8.5-10.1 [facility] Comment on above: Performed By: #### U JORI, PHOS, CMP, LDH #### [facility] [address] [address] [address] Juliocesar Young Chloride [Moles/Vol] 107 mmol/L Normal 98-107 [facility] Comment on above: Performed By: #### U JORI, PHOS, CMP, LDH #### [facility] [address] [address] [address] Juliocesar Young CO2 [Moles/Vol] 24.8 mmol/L Normal 21.0-32.0 [facility] Comment on above: Performed By: #### U JORI, PHOS, CMP, LDH #### [facility] [address] [address] [address] Juliocesar Young Creatinine [Mass/Vol] 0.60 mg/dL Normal 0.55-1.02 [facility] Comment on above: Performed By: #### U JORI, PHOS, CMP, LDH #### [facility] [address] [address] [address] Juliocesar Young EGFR-AF JAPANESE >60 Normal >=60 [facility] Comment on above: Performed By: #### U JORI, PHOS, CMP, LDH #### [facility] [address] [address] [address] Juliocesar Young EGFR-NON AF JAPANESE >60 Normal >=60 [facility] Comment on above: Performed By: #### U JORI, PHOS, CMP, LDH #### [facility] [address] [address] [address] Juliocesar Young Globulin (S) [Mass/Vol] 3.6 g/dL Normal [facility] Comment on above: Performed By: #### U JORI, PHOS, CMP, LDH #### [facility] [address] [address] [address] Juliocesar Young Glucose [Mass/Vol] 96 mg/dL Normal 74-106 [facility] Comment on above: Performed By: #### U JORI, PHOS, CMP, LDH #### [facility] [address] [address] [address] Juliocesar Young Potassium [Moles/Vol] 4.4 mmol/L Normal 3.5-5.1 [facility] Comment on above: Performed By: #### U JORI, PHOS, CMP, LDH #### [facility] [address] [address] [address] Juliocesar Young Protein [Mass/Vol] 7.0 g/dL Normal 6.4-8.2 [facility] Comment on above: Performed By: #### U JORI, PHOS, CMP, LDH #### [facility] [address] [place] [address] Dr. Juliocesar Young Sodium [Moles/Vol] 140 mmol/L Normal 136-145 [facility] Comment on above: Performed By: #### U JORI, PHOS, CMP, LDH #### [facility] [address] [address] [address] Juliocesar Young Urea nitrogen [Mass/Vol] 9.0 mg/dL Normal 7.0-18.0 [facility] Comment on above: Performed By: #### U JORI, PHOS, CMP, LDH #### [facility] [address] [place] [address] Dr. Juliocesar Young Urea nitrogen/Creatinine [Mass ratio] 15.0 mg/mg Normal [facility] Comment on above: Performed By: #### U JORI, PHOS, CMP, LDH #### [facility] [address] [place] [address] Dr. Juliocesar Young URIC ACID SERUMon 01-26-2022 Urate [Mass/Vol] 2.2 mg/dL Critically low 2.6-6.0 [facility] Comment on above: Performed By: #### U JORI, PHOS, CMP, LDH #### [facility] [address] [place] [address] Dr. Juliocesar Young CBC W MANUAL DIFFon 01-11-20 22 ANISOCYTOSIS 1+ Normal [facility] Comment on above: Performed By: #### U JORI, PHOS, CMP, LDH #### [facility] [address] [place] [address] Dr. Juliocesar Young ATYPICAL LYMPH # 2.48 103/ul Normal [facility] Comment on above: Performed By: #### U JORI, PHOS, CMP, LDH #### [facility] [address] [place] [address] Dr. Juliocesar Young ATYPICAL LYMPH % 14 % Normal [facility] Comment on above: Performed By: #### U JORI, PHOS, CMP, LDH #### [facility] [address] [address] [address] Juliocesar Young BAND # Normal 0.0-0.3 [facility] Comment on above: Performed By: #### U JORI, PHOS, CMP, LDH #### [facility] [address] [address] [address] Juliocesar Young BAND % Normal 0-5 [facility] Comment on above: Performed By: #### U JORI, PHOS, CMP, LDH #### [facility] [address] [address] [address] Juliocesar Young BASOM # 0.00 103/ul Normal 0.00-0.10 [facility] Comment on above: Performed By: #### U JORI, PHOS, CMP, LDH #### [facility] [address] [place] [address] Dr. Juliocesar Young BASOM % 0.0 % Critically low 0.2-2.0 [facility] Comment on above: Performed By: #### U JORI, PHOS, CMP, LDH #### [facility] [address] [address] [address] Juliocesar Young BLAST # Normal [facility] Comment on above: Performed By: #### U JORI, PHOS, CMP, LDH #### [facility] [address] [address] [address] Juliocesar Young BLAST % Normal [facility] Comment on above: Performed By: #### U JORI, PHOS, CMP, LDH #### [facility] [address] [place] [address] Dr. Juliocesar Young CORRECTED WBC Normal 4.0-11.0 [facility] Comment on above: Performed By: #### U JORI, PHOS, CMP, LDH #### [facility] [address] [place] [address] Dr. Juliocesar Young EOS # 0.00 103/ul Normal 0.00-0.70 [facility] Comment on above: Performed By: #### U JORI, PHOS, CMP, LDH #### [facility] [address] [address] [address] Juliocesar Young EOS% 0.0 % Critically low 0.9-7.0 [facility] Comment on above: Performed By: #### U JORI, PHOS, CMP, LDH #### [facility] [address] [address] [address] Juliocesar Young HCT 41.9 % Normal 36.0-48.0 [facility] Comment on above: Performed By: #### U JORI, PHOS, CMP, LDH #### [facility] [address] [address] [address] Juliocesar Young HGB 13.7 g/dl Normal 12.0-16.0 [facility] Comment on above: Performed By: #### U JORI, PHOS, CMP, LDH #### [facility] [address] [address] [address] Juliocesar Young LYMPHM # 8.67 103/ul Critically high 1.20-3.80 [facility] Comment on above: Performed By: #### U JORI, PHOS, CMP, LDH #### [facility] [address] [address] [address] Juliocesar Young LYMPHM% 49.0 % Normal 20.5-60.0 [facility] Comment on above: Performed By: #### U JORI, PHOS, CMP, LDH #### [facility] [address] [address] [address] Juliocesar Young MCH 30.0 pg Normal 26.7-34.0 [facility] Comment on above: Performed By: #### U JORI, PHOS, CMP, LDH #### [facility] [address] [address] [address] Juliocesar Young MCHC 32.7 g/dl Normal 29.9-35.2 [facility] Comment on above: Performed By: #### U JORI, PHOS, CMP, LDH #### [facility] [address] [address] [address] Juliocesar Young MCV 91.9 fL Normal 81.0-99.0 [facility] Comment on above: Performed By: #### U JORI, PHOS, CMP, LDH #### [facility] [address] [address] [address] Juliocesar Young METAMYELOCYTE # Normal [facility] Comment on above: Performed By: #### U JORI, PHOS, CMP, LDH #### [facility] [address] [address] [address] Juliocesar Young METAMYELOCYTE % Normal [facility] Comment on above: Performed By: #### U JORI, PHOS, CMP, LDH #### [facility] [address] [address] [address] Juliocesar Young MONOM# 0.71 103/ul Normal 0.30-0.80 [facility] Comment on above: Performed By: #### U JORI, PHOS, CMP, LDH #### [facility] [address] [address] [address] Juliocesar Young MONOM% 4.0 % Normal 1.7-12.0 [facility] Comment on above: Performed By: #### U JORI, PHOS, CMP, LDH #### [facility] [address] [address] [address] Juliocesar Young MPV 10.4 fL Normal 9.5-13.5 [facility] Comment on above: Performed By: #### U JORI, PHOS, CMP, LDH #### [facility] [address] [address] [address] Juliocesar Young MYELOCYTE # Normal [facility] Comment on above: Performed By: #### U JORI, PHOS, CMP, LDH #### [facility] [address] [address] [address] Juliocesar Young MYELOCYTE % Normal [facility] Comment on above: Performed By: #### U JORI, PHOS, CMP, LDH #### [facility] [address] [address] [address] Juliocesar Young NRBC Normal [facility] Comment on above: Performed By: #### U JORI, PHOS, CMP, LDH #### [facility] [address] [address] [address] Juliocesar Young PLT 180 103/ul Normal 150-450 [facility] Comment on above: Performed By: #### U JORI, PHOS, CMP, LDH #### [facility] [address] [address] [address] Juliocesar Young RBC 4.56 106/ul Normal 4.20-5.40 [facility] Comment on above: Performed By: #### U JORI, PHOS, CMP, LDH #### [facility] [address] [place] [address] Dr. Juliocesar Young RDW 14.1 % Normal 11.0-15.0 [facility] Comment on above: Performed By: #### U JORI, PHOS, CMP, LDH #### [facility] [address] [place] [address] Dr. Juliocesar Young SEG # 5.84 103/ul Normal 1.40-6.50 [facility] Comment on above: Performed By: #### U JORI, PHOS, CMP, LDH #### [facility] [address] [place] [address] Dr. Juliocesar Young SEG % 33.0 % Critically low 43.0-75.0 [facility] Comment on above: Performed By: #### U JORI, PHOS, CMP, LDH #### [facility] [address] [place] [address] Dr. Juliocesar Young WBC 17.7 103/ul Critically high 4.0-11.0 [facility] Comment on above: Performed By: #### U JORI, PHOS, CMP, LDH #### [facility] [address] [address] [address] Juliocesar Young LDHon 01-10-2022 LDH 163 U/L Normal 81-234 [facility] Comment on above: Performed By: #### U JORI, PHOS, CMP, LDH #### [facility] [address] [address] [address] Juliocesar Young PHOSPHORUSon 01-10-2022 Phosphate [Mass/Vol] 2.4 mg/dL Critically low 2.6-4.7 [facility] Comment on above: Performed By: #### U JORI, PHOS, CMP, LDH #### [facility] [address] [address] [address] Juliocesar Young PROF 14(COMP METB)on 022 Albumin [Mass/Vol] 3.2 g/dL Critically low 3.4-5.0 Th e [facility] Comment on above: Performed By: #### U JORI, PHOS, CMP, LDH #### [facility] [address] [place] [address] Dr. Juliocesar Young Albumin/Globulin [Mass ratio] 0.9 {ratio} Normal [facility] Comment on above: Performed By: #### U JORI, PHOS, CMP, LDH #### [facility] [address] [place] [address] Dr. Juliocesar Young ALP [Catalytic activity/Vol] 90 U/L Normal 46-116 [facility] Comment on above: Performed By: #### U JORI, PHOS, CMP, LDH #### [facility] [address] [place] [address] Dr. Juliocesar Young ALT [Catalytic activity/Vol] 21 U/L Normal 14-59 [facility] Comment on above: Performed By: #### U JORI, PHOS, CMP, LDH #### [facility] [address] [place] [address] Dr. Juliocesar Young Anion gap [Moles/Vol] 10.4 mmol/L Normal [facility] Comment on above: Performed By: #### U JORI, PHOS, CMP, LDH #### [facility] [address] [place] [address] Dr. Juliocesar Young AST [Catalytic activity/Vol] 11 U/L Critically low 15-37 [facility] Comment on above: Performed By: #### U JORI, PHOS, CMP, LDH #### [facility] [address] [place] [address] Dr. Juliocesar Young Bilirubin [Mass/Vol] 0.3 mg/dL Normal 0.2-1.0 [facility] Comment on above: Performed By: #### U JORI, PHOS, CMP, LDH #### [facility] [address] [address] [address] Juliocesar Young Calcium [Mass/Vol] 8.4 mg/dL Critically low 8.5-10.1 Th e [facility] Comment on above: Performed By: #### U JORI, PHOS, CMP, LDH #### [facility] [address] [address] [address] Juliocesar Young Chloride [Moles/Vol] 109 mmol/L Critically high 98-107 [facility] Comment on above: Performed By: #### U JORI, PHOS, CMP, LDH #### [facility] [address] [address] [address] Juliocesar Young CO2 [Moles/Vol] 27.4 mmol/L Normal 21.0-32.0 [facility] Comment on above: Performed By: #### U JORI, PHOS, CMP, LDH #### [facility] [address] [place] [address] Dr. Juliocesar Young Creatinine [Mass/Vol] 0.53 mg/dL Critically low 0.55-1.02 [facility] Comment on above: Performed By: #### U JORI, PHOS, CMP, LDH #### [facility] [address] [place] [address] Dr. Juliocesar Young EGFR-AF JAPANESE >60 Normal >=60 [facility] Comment on above: Performed By: #### U JORI, PHOS, CMP, LDH #### [facility] [address] [place] [address] Dr. Juliocesar Young EGFR-NON AF JAPANESE >60 Normal >=60 [facility] Comment on above: Performed By: #### U JORI, PHOS, CMP, LDH #### [facility] [address] [place] [address] Dr. Juliocesar Young Globulin (S) [Mass/Vol] 3.6 g/dL Normal [facility] Comment on above: Performed By: #### U JORI, PHOS, CMP, LDH #### [facility] [address] [place] [address] Dr. Juliocesar Young Glucose [Mass/Vol] 108 mg/dL Critically high 74-106 [facility] Comment on above: Performed By: #### U JORI, PHOS, CMP, LDH #### [facility] [address] [address] [address] Juliocesar Young Potassium [Moles/Vol] 3.8 mmol/L Normal 3.5-5.1 [facility] Comment on above: Performed By: #### U JORI, PHOS, CMP, LDH #### [facility] [address] [address] [address] Juliocesar Young Protein [Mass/Vol] 6.8 g/dL Normal 6.4-8.2 [facility] Comment on above: Performed By: #### U JORI, PHOS, CMP, LDH #### [facility] [address] [place] [address] Dr. Juliocesar Young Sodium [Moles/Vol] 143 mmol/L Normal 136-145 [facility] Comment on above: Performed By: #### U JORI, PHOS, CMP, LDH #### [facility] [address] [address] [address] Juliocesar Young Urea nitrogen [Mass/Vol] 9.0 mg/dL Normal 7.0-18.0 [facility] Comment on above: Performed By: #### U JORI, PHOS, CMP, LDH #### [facility] [address] [place] [address] Dr. Juliocesar Young Urea nitrogen/Creatinine [Mass ratio] 17.0 mg/mg Normal [facility] Comment on above: Performed By: #### U JORI, PHOS, CMP, LDH #### [facility] [address] [place] [address] Dr. Juliocesar Young URIC ACID SERUMon 01-10-2022 Urate [Mass/Vol] 2.0 mg/dL Critically low 2.6-6.0 [facility] Comment on above: Performed By: #### U JORI, PHOS, CMP, LDH #### [facility] [address] [place] [address] Dr. Juliocesar Young CBC AUTO DIFFon 12-29-2021 BASO # 0.1 103/ul Normal 0.0-0.1 [facility] Comment on above: Performed By: #### U JORI, PHOS, CMP, LDH #### [facility] [address] [place] [address] Dr. Juliocesar Young Basophils/100 WBC (Bld) 0.4 % Normal 0.2-2.0 [facility] Comment on above: Performed By: #### U JORI, PHOS, CMP, LDH #### [facility] [address] [place] [address] Dr. Juliocesar Young EO # 0.1 103/ul Normal 0.0-0.7 [facility] Comment on above: Performed By: #### U JORI, PHOS, CMP, LDH #### [facility] [address] [place] [address] Dr. Juliocesar Young Eosinophils/100 WBC (Bld) 0.2 % Critically low 0.9-7.0 [facility] Comment on above: Performed By: #### U JORI, PHOS, CMP, LDH #### [facility] [address] [place] [address] Dr. uJliocesar Young Erythrocyte distribution width (RBC) [Ratio] 14.2 % Normal 11.0-15.0 [facility] Comment on above: Performed By: #### U JORI, PHOS, CMP, LDH #### [facility] [address] [place] [address] Dr. Juliocesar Young Hematocrit (Bld) [Volume fraction] 43.8 % Normal 36.0-48.0 [facility] Comment on above: Performed By: #### U JORI, PHOS, CMP, LDH #### [facility] [address] [place] [address] Dr. Juliocesar Young Hemoglobin (Bld) [Mass/Vol] 14.5 g/dL Normal 12.0-16.0 [facility] Comment on above: Performed By: #### U JORI, PHOS, CMP, LDH #### [facility] [address] [place] [address] Dr. Juliocesar Young IG # 0.06 10e3/ul Critically high 0.00-0.03 [facility] Comment on above: Performed By: #### U JORI, PHOS, CMP, LDH #### [facility] [address] [place] [address] Dr. Juliocesar Young IG % 0.2 % Normal 0.0-0.5 [facility] Comment on above: Performed By: #### U JORI, PHOS, CMP, LDH #### [facility] [address] [place] [address] Dr. Juliocesar Young LYMPH # 17.6 103/ul Critically high 1.2-3.8 [facility] Comment on above: Performed By: #### U JORI, PHOS, CMP, LDH #### [facility] [address] [place] [address] Dr. Juliocesar Young Lymphocytes/100 WBC (Bld) 72.9 % Critically high 20.5-60.0 [facility] Comment on above: Performed By: #### U JORI, PHOS, CMP, LDH #### [facility] [address] [place] [address] Dr. Juliocesar Young MANUAL DIFF REQ NO Normal [facility] Comment on above: Performed By: #### U JORI, PHOS, CMP, LDH #### [facility] [address] [place] [address] Dr. Juliocesar Young MCH (RBC) [Entitic mass] 30.5 pg Normal 26.7-34.0 [facility] Comment on above: Performed By: #### U JORI, PHOS, CMP, LDH #### [facility] [address] [place] [address] Dr. Juliocesar Young MCHC (RBC) [Mass/Vol] 33.1 g/dL Normal 29.9-35.2 [facility] Comment on above: Performed By: #### U JORI, PHOS, CMP, LDH #### [facility] [address] [place] [address] Dr. Juliocesar Young MCV (RBC) [Entitic vol] 92.0 fL Normal 81.0-99.0 [facility] Comment on above: Performed By: #### U JORI, PHOS, CMP, LDH #### [facility] [address] [place] [address] Dr. Juliocesar Young MONO # 0.7 103/ul Normal 0.3-0.8 [facility] Comment on above: Performed By: #### U JORI, PHOS, CMP, LDH #### [facility] [address] [place] [address] Dr. Juliocesar Young Monocytes/100 WBC (Bld) 2.9 % Normal 1.7-12.0 [facility] Comment on above: Performed By: #### U JORI, PHOS, CMP, LDH #### [facility] [address] [place] [address] Dr. Juliocesar Young NEUT # 5.7 103/ul Normal 1.4-6.5 [facility] Comment on above: Performed By: #### U JORI, PHOS, CMP, LDH #### [facility] [address] [place] [address] Dr. Juliocesar Young Neutrophils/100 WBC (Bld) 23.4 % Critically low 43.0-75.0 [facility] Comment on above: Performed By: #### U JORI, PHOS, CMP, LDH #### [facility] [address] [place] [address] Dr. Juliocesar Young Platelet mean volume (Bld) [Entitic vol] 10.5 fL Normal 9.5-13.5 [facility] Comment on above: Performed By: #### U JORI, PHOS, CMP, LDH #### [facility] [address] [place] [address] Dr. Juliocesar Young PLT 236 103/ul Normal 150-450 [facility] Comment on above: Performed By: #### U JORI, PHOS, CMP, LDH #### [facility] [address] [place] [address] Dr. Juliocesar Young RBC 4.76 106/ul Normal 4.20-5.40 [facility] Comment on above: Performed By: #### U JORI, PHOS, CMP, LDH #### [facility] [address] [place] [address] Dr. Juliocesar Young WBC 24.2 103/ul Critically high 4.0-11.0 [facility] Comment on above: Performed By: #### U JORI, PHOS, CMP, LDH #### [facility] [address] [place] [address] Dr. Juliocesar Young LDHon 12-29-2021 LDH 171 U/L Normal 81-234 [facility] Comment on above: Performed By: #### U JORI, PHOS, CMP, LDH #### [facility] [address] [place] [address] Dr. Juliocesar Young PHOSPHORUSon 12-29-2021 Phosphate [Mass/Vol] 3.4 mg/dL Normal 2.6-4.7 [facility] Comment on above: Performed By: #### L DH, CMP, PHOS, URIC #### [facility] [address] [place] [address] Dr. Juliocesar Young PROF 14(COMP METB)on 022 Albumin [Mass/Vol] 3.6 g/dL Normal 3.4-5.0 [facility] Comment on above: Performed By: #### L DH, CMP, PHOS, URIC #### [facility] [address] [place] [address] Dr. Juliocesar Young Albumin/Globulin [Mass ratio] 0.9 {ratio} Normal [facility] Comment on above: Performed By: #### L DH, CMP, PHOS, URIC #### [facility] [address] [place] [address] Dr. Juliocesar Young ALP [Catalytic activity/Vol] 91 U/L Normal 46-116 [facility] Comment on above: Performed By: #### L DH, CMP, PHOS, URIC #### [facility] [address] [place] [address] Dr. Juliocesar Young ALT [Catalytic activity/Vol] 25 U/L Normal 14-59 [facility] Comment on above: Performed By: #### L DH, CMP, PHOS, URIC #### [facility] [address] [place] [address] Dr. Juliocesar Young Anion gap [Moles/Vol] 13.4 mmol/L Normal [facility] Comment on above: Performed By: #### L DH, CMP, PHOS, URIC #### [facility] [address] [address] [address] Juliocesar Young AST [Catalytic activity/Vol] 12 U/L Critically low 15-37 [facility] Comment on above: Performed By: #### L DH, CMP, PHOS, URIC #### [facility] [address] [address] [address] Juliocesar Young Bilirubin [Mass/Vol] 0.5 mg/dL Normal 0.2-1.0 [facility] Comment on above: Performed By: #### L DH, CMP, PHOS, URIC #### [facility] [address] [place] [address] Dr. Juliocesar Young Calcium [Mass/Vol] 9.2 mg/dL Normal 8.5-10.1 [facility] Comment on above: Performed By: #### L DH, CMP, PHOS, URIC #### [facility] [address] [address] [address] Juliocesar Young Chloride [Moles/Vol] 104 mmol/L Normal 98-107 [facility] Comment on above: Performed By: #### L DH, CMP, PHOS, URIC #### [facility] [address] [place] [address] Dr. Juliocesar Young CO2 [Moles/Vol] 24.6 mmol/L Normal 21.0-32.0 [facility] Comment on above: Performed By: #### L DH, CMP, PHOS, URIC #### [facility] [address] [place] [address] Dr. Juliocesar Young Creatinine [Mass/Vol] 0.60 mg/dL Normal 0.55-1.02 [facility] Comment on above: Performed By: #### L DH, CMP, PHOS, URIC #### [facility] [address] [address] [address] Juliocesar Young EGFR-AF JAPANESE >60 Normal >=60 [facility] Comment on above: Performed By: #### L DH, CMP, PHOS, URIC #### [facility] [address] [address] [address] Juliocesar Young EGFR-NON AF JAPANESE >60 Normal >=60 [facility] Comment on above: Performed By: #### L DH, CMP, PHOS, URIC #### [facility] [address] [place] [address] Dr. Juliocesar Young Globulin (S) [Mass/Vol] 3.9 g/dL Normal [facility] Comment on above: Performed By: #### L DH, CMP, PHOS, URIC #### [facility] [address] [place] [address] Dr. Juliocesar Young Glucose [Mass/Vol] 100 mg/dL Normal 74-106 [facility] Comment on above: Performed By: #### L DH, CMP, PHOS, URIC #### [facility] [address] [place] [address] Dr. Juliocesar Young Potassium [Moles/Vol] 4.0 mmol/L Normal 3.5-5.1 [facility] Comment on above: Performed By: #### L DH, CMP, PHOS, URIC #### [facility] [address] [place] [address] Dr. Juliocesar Young Protein [Mass/Vol] 7.5 g/dL Normal 6.4-8.2 [facility] Comment on above: Performed By: #### L DH, CMP, PHOS, URIC #### [facility] [address] [place] [address] Dr. Juliocesar Young Sodium [Moles/Vol] 138 mmol/L Normal 136-145 [facility] Comment on above: Performed By: #### L DH, CMP, PHOS, URIC #### [facility] [address] [place] [address] Dr. Juliocesar Young Urea nitrogen [Mass/Vol] 6.0 mg/dL Critically low 7.0-18.0 [facility] Comment on above: Performed By: #### L DH, CMP, PHOS, URIC #### [facility] [address] [place] [address] Dr. Juliocesar Young Urea nitrogen/Creatinine [Mass ratio] 10.0 mg/mg Normal [facility] Comment on above: Performed By: #### L DH, CMP, PHOS, URIC #### [facility] [address] [place] [address] Dr. Juliocesar Young URIC ACID SERUMon 12-29-2021 Urate [Mass/Vol] 2.6 mg/dL Normal 2.6-6.0 [facility] Comment on above: Performed By: #### L DH, CMP, PHOS, URIC #### [facility] [address] [place] [address] Dr. Juliocesar Young CBC AUTO DIFFon 12-20-2021 BASO # 0.0 103/ul Normal 0.0-0.1 [facility] Comment on above: Performed By: #### O VAPE #### [facility] [address] [place] [address] Dr. Juliocesar Young Basophils/100 WBC (Bld) 0.1 % Critically low 0.2-2.0 [facility] Comment on above: Performed By: #### O VAPE #### [facility] [address] [place] [address] Dr. Juliocesar Young EO # 0.2 103/ul Normal 0.0-0.7 [facility] Comment on above: Performed By: #### O VAPE #### [facility] [address] [place] [address] Dr. Juliocesar Young Eosinophils/100 WBC (Bld) 0.6 % Critically low 0.9-7.0 [facility] Comment on above: Performed By: #### O VAPE #### [facility] [address] [place] [address] Dr. Juliocesar Young Erythrocyte distribution width (RBC) [Ratio] 14.6 % Normal 11.0-15.0 [facility] Comment on above: Performed By: #### O VAPE #### [facility] [address] [place] [address] Dr. Juliocesar Young Hematocrit (Bld) [Volume fraction] 44.1 % Normal 36.0-48.0 [facility] Comment on above: Performed By: #### O VAPE #### [facility] [address] [address] [address] Juliocesar Young Hemoglobin (Bld) [Mass/Vol] 14.7 g/dL Normal 12.0-16.0 [facility] Comment on above: Performed By: #### O VAPE #### [facility] [address] [address] [address] Juliocesar Young IG # 0.07 10e3/ul Critically high 0.00-0.03 [facility] Comment on above: Performed By: #### O VAPE #### [facility] [address] [place] [address] Dr. Juliocesar Young IG % 0.2 % Normal 0.0-0.5 [facility] Comment on above: Performed By: #### O VAPE #### [facility] [address] [place] [address] Dr. Juliocesar Young LYMPH # 27.2 103/ul Critically high 1.2-3.8 [facility] Comment on above: Performed By: #### O VAPE #### [facility] [address] [place] [address] Dr. Juliocesar Young Lymphocytes/100 WBC (Bld) 78.1 % Critically high 20.5-60.0 [facility] Comment on above: Performed By: #### O VAPE #### [facility] [address] [place] [address] Dr. Juliocesar Young MANUAL DIFF REQ YES Normal [facility] Comment on above: Performed By: #### O VAPE #### [facility] [address] [address] [address] Juliocesar Young MCH (RBC) [Entitic mass] 30.3 pg Normal 26.7-34.0 [facility] Comment on above: Performed By: #### O VAPE #### [facility] [address] [place] [address] Dr. Juliocesar Young MCHC (RBC) [Mass/Vol] 33.3 g/dL Normal 29.9-35.2 [facility] Comment on above: Performed By: #### O VAPE #### [facility] [address] [address] [address] Juliocesar Young MCV (RBC) [Entitic vol] 90.9 fL Normal 81.0-99.0 [facility] Comment on above: Performed By: #### O VAPE #### [facility] [address] [address] [address] Juliocesar Young MONO # 0.9 103/ul Critically high 0.3-0.8 [facility] Comment on above: Performed By: #### O VAPE #### [facility] [address] [place] [address] Dr. Juliocesar Young Monocytes/100 WBC (Bld) 2.5 % Normal 1.7-12.0 [facility] Comment on above: Performed By: #### O VAPE #### [facility] [address] [place] [address] Dr. Juliocesar Young NEUT # 6.4 103/ul Normal 1.4-6.5 [facility] Comment on above: Performed By: #### O VAPE #### [facility] [address] [place] [address] Dr. Juliocesar Young Neutrophils/100 WBC (Bld) 18.5 % Critically low 43.0-75.0 [facility] Comment on above: Performed By: #### O VAPE #### [facility] [address] [place] [address] Dr. Juliocesar Young Platelet mean volume (Bld) [Entitic vol] 9.9 fL Normal 9.5-13.5 [facility] Comment on above: Performed By: #### O VAPE #### [facility] [address] [place] [address] Dr. Juliocesar Young PLT 220 103/ul Normal 150-450 [facility] Comment on above: Performed By: #### O VAPE #### [facility] [address] [place] [address] Dr. Juliocesar Young RBC 4.85 106/ul Normal 4.20-5.40 [facility] Comment on above: Performed By: #### O VAPE #### [facility] [address] [address] [address] Juliocesar Yougn WBC 34.8 103/ul Critically high 4.0-11.0 [facility] Comment on above: Result Comment: test repeated critical value verified Performed By: #### O VAPE #### [facility] [address] [address] [address] Juliocesar Young DIFFERENTIAL MANUALon 2021 ATYPICAL LYMPH # Normal [facility] Comment on above: Performed By: #### U JORI, PHOS, CMP, LDH #### [facility] [address] [address] [address] Juliocesar Young ATYPICAL LYMPH % Normal [facility] Comment on above: Performed By: #### U JORI, PHOS, CMP, LDH #### [facility] [address] [address] [address] Juliocesar Young BAND # 0.0 103/ul Normal 0.0-0.3 [facility] Comment on above: Performed By: #### U JORI, PHOS, CMP, LDH #### [facility] [address] [address] [address] Juliocesar Young BAND % 0 % Normal 0-5 [facility] Comment on above: Performed By: #### U JORI, PHOS, CMP, LDH #### [facility] [address] [address] [address] Juliocesar Young BASOM # 0.00 103/ul Normal 0.00-0.10 [facility] Comment on above: Performed By: #### U JORI, PHOS, CMP, LDH #### [facility] [address] [address] [address] Juliocesar Young BASOM % 0.0 % Critically low 0.2-2.0 [facility] Comment on above: Performed By: #### U JORI, PHOS, CMP, LDH #### [facility] [address] [address] [address] Juliocesar Young BLAST # Normal [facility] Comment on above: Performed By: #### U JORI, PHOS, CMP, LDH #### [facility] [address] [address] [address] Juliocesar Young BLAST % Normal [facility] Comment on above: Performed By: #### U JORI, PHOS, CMP, LDH #### [facility] [address] [address] [address] Juliocesar Young CORRECTED WBC Normal 4.0-11.0 [facility] Comment on above: Performed By: #### U JORI, PHOS, CMP, LDH #### [facility] [address] [address] [address] Juliocesar Young EOS # 0.35 103/ul Normal 0.00-0.70 [facility] Comment on above: Performed By: #### U JORI, PHOS, CMP, LDH #### [facility] [address] [address] [address] Juliocesar Young EOS% 1.0 % Normal 0.9-7.0 [facility] Comment on above: Performed By: #### U JORI, PHOS, CMP, LDH #### [facility] [address] [address] [address] Juliocesar Young LYMPHM # 28.80 103/ul Critically high 1.20-3.80 [facility] Comment on above: Performed By: #### U JORI, PHOS, CMP, LDH #### [facility] [address] [address] [address] Juliocesar Young LYMPHM% 83.0 % Critically high 20.5-60.0 [facility] Comment on above: Performed By: #### U JORI, PHOS, CMP, LDH #### [facility] [address] [address] [address] Juliocesar Young METAMYELOCYTE # Normal [facility] Comment on above: Performed By: #### U JORI, PHOS, CMP, LDH #### [facility] [address] [address] [address] Juliocesar Young METAMYELOCYTE % Normal [facility] Comment on above: Performed By: #### U JORI, PHOS, CMP, LDH #### [facility] [address] [address] [address] Juliocesar Young MONOM# 0.69 103/ul Normal 0.30-0.80 [facility] Comment on above: Performed By: #### U JORI, PHOS, CMP, LDH #### [facility] [address] [address] [address] Juliocesar Young MONOM% 2.0 % Normal 1.7-12.0 [facility] Comment on above: Performed By: #### U JORI, PHOS, CMP, LDH #### [facility] [address] [address] [address] Juliocesar Young MYELOCYTE # Normal [facility] Comment on above: Performed By: #### U JORI, PHOS, CMP, LDH #### [facility] [address] [address] [address] Juliocesar Young MYELOCYTE % Normal [facility] Comment on above: Performed By: #### U JORI, PHOS, CMP, LDH #### [facility] [address] [address] [address] Juliocesar Young NRBC Normal [facility] Comment on above: Performed By: #### U JORI, PHOS, CMP, LDH #### [facility] [address] [address] [address] Juliocesar Young SEG # 4.86 103/ul Normal 1.40-6.50 [facility] Comment on above: Performed By: #### U JORI, PHOS, CMP, LDH #### [facility] [address] [address] [address] Juliocesar Young SEG % 14.0 % Critically low 43.0-75.0 [facility] Comment on above: Performed By: #### U JORI, PHOS, CMP, LDH #### [facility] [address] [address] [address] Juliocesar Young WBC 34.7 103/ul Critically high 4.0-11.0 [facility] Comment on above: Performed By: #### U JORI, PHOS, CMP, LDH #### [facility] [address] [place] [address] Dr. Juliocesar Young PROF 14(COMP METB)on 022 Albumin [Mass/Vol] 3.5 g/dL Normal 3.4-5.0 [facility] Comment on above: Performed By: #### C MP #### [facility] [address] [place] [address] Dr. Juliocesar Young Albumin/Globulin [Mass ratio] 0.9 {ratio} Normal [facility] Comment on above: Performed By: #### C MP #### [facility] [address] [place] [address] Dr. Juliocesar Young ALP [Catalytic activity/Vol] 95 U/L Normal 46-116 [facility] Comment on above: Performed By: #### C MP #### [facility] [address] [place] [address] Dr. Juliocesar Young ALT [Catalytic activity/Vol] 27 U/L Normal 14-59 [facility] Comment on above: Performed By: #### C MP #### [facility] [address] [place] [address] Dr. Juliocesar Young Anion gap [Moles/Vol] 13.1 mmol/L Normal [facility] Comment on above: Performed By: #### C MP #### [facility] [address] [place] [address] Dr. Juliocesar Young AST [Catalytic activity/Vol] 13 U/L Critically low 15-37 [facility] Comment on above: Performed By: #### C MP #### [facility] [address] [place] [address] Dr. Juliocesar Young Bilirubin [Mass/Vol] 0.4 mg/dL Normal 0.2-1.0 [facility] Comment on above: Performed By: #### C MP #### [facility] [address] [place] [address] Dr. Juliocesar Young Calcium [Mass/Vol] 8.6 mg/dL Normal 8.5-10.1 [facility] Comment on above: Performed By: #### C MP #### [facility] [address] [place] [address] Dr. Juliocesar Young Chloride [Moles/Vol] 104 mmol/L Normal 98-107 [facility] Comment on above: Performed By: #### C MP #### [facility] [address] [address] [address] Juliocesar Young CO2 [Moles/Vol] 24.7 mmol/L Normal 21.0-32.0 [facility] Comment on above: Performed By: #### C MP #### [facility] [address] [address] [address] Juliocesar Young Creatinine [Mass/Vol] 0.60 mg/dL Normal 0.55-1.02 [facility] Comment on above: Performed By: #### C MP #### [facility] [address] [place] [address] Dr. Juliocesar Young EGFR-AF JAPANESE >60 Normal >=60 [facility] Comment on above: Performed By: #### C MP #### [facility] [address] [address] [address] Juliocesar Young EGFR-NON AF JAPANESE >60 Normal >=60 [facility] Comment on above: Performed By: #### C MP #### [facility] [address] [address] [address] Juliocesar Young Globulin (S) [Mass/Vol] 3.9 g/dL Normal [facility] Comment on above: Performed By: #### C MP #### [facility] [address] [address] [address] Juliocesar Young Glucose [Mass/Vol] 91 mg/dL Normal 74-106 [facility] Comment on above: Performed By: #### C MP #### [facility] [address] [address] [address] Juliocesar Young Potassium [Moles/Vol] 3.8 mmol/L Normal 3.5-5.1 [facility] Comment on above: Performed By: #### C MP #### [facility] [address] [address] [address] Juliocesar Young Protein [Mass/Vol] 7.4 g/dL Normal 6.4-8.2 [facility] Comment on above: Performed By: #### C MP #### [facility] [address] [address] [address] Juliocesar Young Sodium [Moles/Vol] 138 mmol/L Normal 136-145 [facility] Comment on above: Performed By: #### C MP #### [facility] [address] [address] [address] Juliocesar Young Urea nitrogen [Mass/Vol] 11.0 mg/dL Normal 7.0-18.0 [facility] Comment on above: Performed By: #### C MP #### [facility] [address] [address] [address] Juliocesar Young Urea nitrogen/Creatinine [Mass ratio] 18.3 mg/mg Normal [facility] Comment on above: Performed By: #### C MP #### [facility] [address] [place] [address] Dr. Juliocesar Young CBC W MANUAL DIFFon 12-13-19 22 ATYPICAL LYMPH # Normal [facility] Comment on above: Performed By: #### U JORI, PHOS, CMP, LDH #### [facility] [address] [address] [address] Juliocesar Young ATYPICAL LYMPH % Normal [facility] Comment on above: Performed By: #### U JORI, PHOS, CMP, LDH #### [facility] [address] [address] [address] Juliocesar Young BAND # Normal 0.0-0.3 [facility] Comment on above: Performed By: #### U JORI, PHOS, CMP, LDH #### [facility] [address] [address] [address] Juliocesar Young BAND % Normal 0-5 [facility] Comment on above: Performed By: #### U JORI, PHOS, CMP, LDH #### [facility] [address] [place] [address] Dr. Juliocesar Young BASOM # 0.00 103/ul Normal 0.00-0.10 [facility] Comment on above: Performed By: #### U JORI, PHOS, CMP, LDH #### [facility] [address] [address] [address] Juliocesar Young BASOM % 0.0 % Critically low 0.2-2.0 [facility] Comment on above: Performed By: #### U JORI, PHOS, CMP, LDH #### [facility] [address] [address] [address] Juliocesar Young BLAST # Normal [facility] Comment on above: Performed By: #### U JORI, PHOS, CMP, LDH #### [facility] [address] [address] [address] Juliocesar Young BLAST % Normal [facility] Comment on above: Performed By: #### U JORI, PHOS, CMP, LDH #### [facility] [address] [place] [address] Dr. Juliocesar Young CORRECTED WBC Normal 4.0-11.0 [facility] Comment on above: Performed By: #### U JORI, PHOS, CMP, LDH #### [facility] [address] [place] [address] Dr. Juliocesar Young EOS # 0.00 103/ul Normal 0.00-0.70 [facility] Comment on above: Performed By: #### U JORI, PHOS, CMP, LDH #### [facility] [address] [address] [address] Juliocesar Young EOS% 0.0 % Critically low 0.9-7.0 [facility] Comment on above: Performed By: #### U JORI, PHOS, CMP, LDH #### [facility] [address] [address] [address] Juliocesar Young HCT 44.1 % Normal 36.0-48.0 [facility] Comment on above: Performed By: #### U JORI, PHOS, CMP, LDH #### [facility] [address] [place] [address] Dr. Juliocesar Young HGB 14.1 g/dl Normal 12.0-16.0 [facility] Comment on above: Performed By: #### U JORI, PHOS, CMP, LDH #### [facility] [address] [address] [address] Juliocesar Young LYMPHM # 39.95 103/ul Critically high 1.20-3.80 [facility] Comment on above: Performed By: #### U JORI, PHOS, CMP, LDH #### [facility] [address] [address] [address] Juliocesar Young LYMPHM% 85.0 % Critically high 20.5-60.0 The [facility] Comment on above: Performed By: #### U JORI, PHOS, CMP, LDH #### [facility] [address] [address] [address] Juliocesar Young MCH 30.1 pg Normal 26.7-34.0 [facility] Comment on above: Performed By: #### U JORI, PHOS, CMP, LDH #### [facility] [address] [address] [address] Juliocesar Yonug MCHC 32.0 g/dl Normal 29.9-35.2 [facility] Comment on above: Performed By: #### U JORI, PHOS, CMP, LDH #### [facility] [address] [address] [address] Juliocesar Young MCV 94.2 fL Normal 81.0-99.0 [facility] Comment on above: Performed By: #### U JORI, PHOS, CMP, LDH #### [facility] [address] [address] [address] Juliocesar Young METAMYELOCYTE # Normal [facility] Comment on above: Performed By: #### U JORI, PHOS, CMP, LDH #### [facility] [address] [address] [address] Juliocesar Young METAMYELOCYTE % Normal [facility] Comment on above: Performed By: #### U JORI, PHOS, CMP, LDH #### [facility] [address] [address] [address] Juliocesar Young MONOM# 0.94 103/ul Critically high 0.30-0.80 [facility] Comment on above: Performed By: #### U JORI, PHOS, CMP, LDH #### [facility] [address] [address] [address] Juliocesar Young MONOM% 2.0 % Normal 1.7-12.0 [facility] Comment on above: Performed By: #### U JORI, PHOS, CMP, LDH #### [facility] [address] [address] [address] Juliocesar Young MPV 10.6 fL Normal 9.5-13.5 [facility] Comment on above: Performed By: #### U JORI, PHOS, CMP, LDH #### [facility] [address] [address] [address] Juliocesar Young MYELOCYTE # Normal [facility] Comment on above: Performed By: #### U JORI, PHOS, CMP, LDH #### [facility] [address] [place] [address] Dr. Juliocesar Young MYELOCYTE % Normal [facility] Comment on above: Performed By: #### U JORI, PHOS, CMP, LDH #### [facility] [address] [address] [address] Juliocesar Young NRBC Normal [facility] Comment on above: Performed By: #### U JORI, PHOS, CMP, LDH #### [facility] [address] [place] [address] Dr. Juliocesar Young PLT 202 103/ul Normal 150-450 [facility] Comment on above: Performed By: #### U JORI, PHOS, CMP, LDH #### [facility] [address] [address] [address] Juliocesar Young RBC 4.68 106/ul Normal 4.20-5.40 [facility] Comment on above: Performed By: #### U JORI, PHOS, CMP, LDH #### [facility] [address] [place] [address] Dr. Juliocesar Young RDW 14.6 % Normal 11.0-15.0 [facility] Comment on above: Performed By: #### U JORI, PHOS, CMP, LDH #### [facility] [address] [place] [address] Dr. Juliocesar Young SEG # 6.11 103/ul Normal 1.40-6.50 [facility] Comment on above: Performed By: #### U JORI, PHOS, CMP, LDH #### [facility] [address] [address] [address] Juliocesar Young SEG % 13.0 % Critically low 43.0-75.0 [facility] Comment on above: Performed By: #### U JORI, PHOS, CMP, LDH #### [facility] [address] [address] [address] Juliocesar Young SMUDGE CELLS SEEN Normal [facility] Comment on above: Performed By: #### U JORI, PHOS, CMP, LDH #### [facility] [address] [address] [address] Juliocesar Young WBC 47.0 103/ul Critically high 4.0-11.0 [facility] Comment on above: Performed By: #### U JORI, PHOS, CMP, LDH #### [facility] [address] [address] [address] Juliocesar Young LDHon 12-12-2021 LDH 165 U/L Normal 81-234 [facility] Comment on above: Performed By: #### L ACTFQ #### [facility] [address] [address] [address] Juliocesar Young PHOSPHORUSon 12-12-2021 Phosphate [Mass/Vol] 3.0 mg/dL Normal 2.6-4.7 [facility] Comment on above: Performed By: #### L ACTFQ #### [facility] [address] [address] [address] Juliocesar Young PROF 14(COMP METB)on 022 Albumin [Mass/Vol] 3.5 g/dL Normal 3.4-5.0 [facility] Comment on above: Performed By: #### L ACTFQ #### [facility] [address] [address] [address] Juliocesar Young Albumin/Globulin [Mass ratio] 1.0 {ratio} Normal [facility] Comment on above: Performed By: #### L ACTFQ #### [facility] [address] [address] [address] Juliocesar Young ALP [Catalytic activity/Vol] 84 U/L Normal 46-116 [facility] Comment on above: Performed By: #### L ACTFQ #### [facility] [address] [address] [address] Juliocesar Young ALT [Catalytic activity/Vol] 21 U/L Normal 14-59 [facility] Comment on above: Performed By: #### L ACTFQ #### [facility] [address] [address] [address] Juliocesar Young Anion gap [Moles/Vol] 9.3 mmol/L Normal [facility] Comment on above: Performed By: #### L ACTFQ #### [facility] [address] [place] [address] Dr. Juliocesar Young AST [Catalytic activity/Vol] 11 U/L Critically low 15-37 [facility] Comment on above: Performed By: #### L ACTFQ #### [facility] [address] [address] [address] Juliocesar Young Bilirubin [Mass/Vol] 0.5 mg/dL Normal 0.2-1.0 [facility] Comment on above: Performed By: #### L ACTFQ #### [facility] [address] [place] [address] Dr. Juliocesar Young Calcium [Mass/Vol] 8.2 mg/dL Critically low 8.5-10.1 [facility] Comment on above: Performed By: #### L ACTFQ #### [facility] [address] [address] [address] Juliocesar Young Chloride [Moles/Vol] 106 mmol/L Normal 98-107 [facility] Comment on above: Performed By: #### L ACTFQ #### [facility] [address] [address] [address] Juliocesar Young CO2 [Moles/Vol] 24.7 mmol/L Normal 21.0-32.0 [facility] Comment on above: Performed By: #### L ACTFQ #### [facility] [address] [address] [address] Juliocesar oYung Creatinine [Mass/Vol] 0.53 mg/dL Critically low 0.55-1.02 [facility] Comment on above: Performed By: #### L ACTFQ #### [facility] [address] [address] [address] Juliocesar Young EGFR-AF JAPANESE >60 Normal >=60 [facility] Comment on above: Performed By: #### L ACTFQ #### [facility] [address] [address] [address] Juliocesar Young EGFR-NON AF JAPANESE >60 Normal >=60 [facility] Comment on above: Performed By: #### L ACTFQ #### [facility] [address] [place] [address] Dr. Juliocesar Young Globulin (S) [Mass/Vol] 3.6 g/dL Normal [facility] Comment on above: Performed By: #### L ACTFQ #### [facility] [address] [address] [address] Juliocesar Young Glucose [Mass/Vol] 102 mg/dL Normal 74-106 [facility] Comment on above: Performed By: #### L ACTFQ #### [facility] [address] [place] [address] Dr. Juliocesar Young Potassium [Moles/Vol] 4.0 mmol/L Normal 3.5-5.1 [facility] Comment on above: Performed By: #### L ACTFQ #### [facility] [address] [address] [address] Juliocesar Young Protein [Mass/Vol] 7.1 g/dL Normal 6.4-8.2 [facility] Comment on above: Performed By: #### L ACTFQ #### [facility] [address] [address] [address] Juliocesar Young Sodium [Moles/Vol] 136 mmol/L Normal 136-145 [facility] Comment on above: Performed By: #### L ACTFQ #### [facility] [address] [address] [address] Juliocesar Young Urea nitrogen [Mass/Vol] 9.0 mg/dL Normal 7.0-18.0 [facility] Comment on above: Performed By: #### L ACTFQ #### [facility] [address] [place] [address] Dr. Juliocesar Young Urea nitrogen/Creatinine [Mass ratio] 17.0 mg/mg Normal [facility] Comment on above: Performed By: #### L ACTFQ #### [facility] [address] [place] [address] Dr. Juliocesar Young URIC ACID SERUMon 12-12-2021 Urate [Mass/Vol] 2.3 mg/dL Critically low 2.6-6.0 [facility] Comment on above: Performed By: #### L ACTFQ #### [facility] [address] [place] [address] Dr. Juliocesar Young HEPATITIS B CORE ANTIBODYon 12-05-2021 HEP B CORE AB Non-Reactive Normal NONREACTIVE [facility] Comment on above: Performed By: #### 3 [id number] #### [facility] [address] [place] [address], [facility] CBC W MANUAL DIFFon 12-04-19 22 ATYPICAL LYMPH # Normal [facility] Comment on above: Performed By: #### U JORI, PHOS, CMP, LDH #### [facility] [address] [place] [address] Dr. Juliocesar Young ATYPICAL LYMPH % Normal [facility] Comment on above: Performed By: #### U JORI, PHOS, CMP, LDH #### [facility] [address] [place] [address] Dr. Juliocesar Young BAND # 0.0 103/ul Normal 0.0-0.3 [facility] Comment on above: Performed By: #### U JORI, PHOS, CMP, LDH #### [facility] [address] [place] [address] Dr. Juliocesar Young BAND % 0 % Normal 0-5 [facility] Comment on above: Performed By: #### U JORI, PHOS, CMP, LDH #### [facility] [address] [address] [address] Juliocesar SOLOOM # 0.00 103/ul Normal 0.00-0.10 [facility] Comment on above: Performed By: #### U JORI, PHOS, CMP, LDH #### [facility] [address] [address] [address] Juliocesar Young BASOM % 0.0 % Critically low 0.2-2.0 [facility] Comment on above: Performed By: #### U JORI, PHOS, CMP, LDH #### [facility] [address] [address] [address] Juliocesar Young BLAST # Normal [facility] Comment on above: Performed By: #### U JORI, PHOS, CMP, LDH #### [facility] [address] [address] [address] Juliocesar Young BLAST % Normal [facility] Comment on above: Performed By: #### U JORI, PHOS, CMP, LDH #### [facility] [address] [address] [address] Juliocesar Young CORRECTED WBC Normal 4.0-11.[address] [facility] Comment on above: Performed By: #### U JORI, PHOS, CMP, LDH #### [facility] [address] [address] [address] Juliocesar Young EOS # 0.00 103/ul Normal 0.00-0.70 [facility] Comment on above: Performed By: #### U JORI, PHOS, CMP, LDH #### [facility] [address] [address] [address] Juliocesar Young EOS% 0.0 % Critically low 0.9-7.0 [facility] Comment on above: Performed By: #### U JORI, PHOS, CMP, LDH #### [facility] [address] [address] [address] Juliocesar Young HCT 44.6 % Normal 36.0-48.0 [facility] Comment on above: Performed By: #### U JORI, PHOS, CMP, LDH #### [facility] [address] [address] [address] Juliocesar Young HGB 14.4 g/dl Normal 12.0-16.0 [facility] Comment on above: Performed By: #### U JORI, PHOS, CMP, LDH #### [facility] [address] [address] [address] Juliocesar Young LYMPHM # 53.68 103/ul Critically high 1.20-3.80 [facility] Comment on above: Performed By: #### U JORI, PHOS, CMP, LDH #### [facility] [address] [address] [address] Juliocesar Young LYMPHM% 88.0 % Critically high 20.5-60.0 [facility] Comment on above: Performed By: #### U JORI, PHOS, CMP, LDH #### [facility] [address] [place] [address] Dr. Juliocesar Young MCH 29.9 pg Normal 26.7-34.0 [facility] Comment on above: Performed By: #### U JORI, PHOS, CMP, LDH #### [facility] [address] [place] [address] Dr. Juliocesar Young MCHC 32.3 g/dl Normal 29.9-35.2 [facility] Comment on above: Performed By: #### U JORI, PHOS, CMP, LDH #### [facility] [address] [address] [address] Juliocesar Young MCV 92.5 fL Normal 81.0-99.0 [facility] Comment on above: Performed By: #### U JORI, PHOS, CMP, LDH #### [facility] [address] [address] [address] Juliocesar Young METAMYELOCYTE # Normal [facility] Comment on above: Performed By: #### U JORI, PHOS, CMP, LDH #### [facility] [address] [address] [address] Juliocesar Young METAMYELOCYTE % Normal [facility] Comment on above: Performed By: #### U JORI, PHOS, CMP, LDH #### [facility] [address] [address] [address] Juliocesar Young MONOM# 0.00 103/ul Critically low 0.30-0.80 [facility] Comment on above: Performed By: #### U JORI, PHOS, CMP, LDH #### [facility] [address] [address] [address] Juliocesar Young MONOM% 0.0 % Critically low 1.7-12.0 [facility] Comment on above: Performed By: #### U JORI, PHOS, CMP, LDH #### [facility] [address] [place] [address] Dr. Juliocesar Young MPV 10.4 fL Normal 9.5-13.5 [facility] Comment on above: Performed By: #### U JORI, PHOS, CMP, LDH #### [facility] [address] [place] [address] Dr. Juliocesar Young MYELOCYTE # Normal [facility] Comment on above: Performed By: #### U JORI, PHOS, CMP, LDH #### [facility] [address] [address] [address] Juliocesar Young MYELOCYTE % Normal [facility] Comment on above: Performed By: #### U JORI, PHOS, CMP, LDH #### [facility] [address] [place] [address] Dr. Juliocesar Young NRBC Normal [facility] Comment on above: Performed By: #### U JORI, PHOS, CMP, LDH #### [facility] [address] [address] [address] Juliocesar Young PLT 224 103/ul Normal 150-450 [facility] Comment on above: Performed By: #### U JORI, PHOS, CMP, LDH #### [facility] [address] [place] [address] Dr. Juliocesar Young RBC 4.82 106/ul Normal 4.20-5.40 [facility] Comment on above: Performed By: #### U JORI, PHOS, CMP, LDH #### [facility] [address] [address] [address] Juliocesar Young RDW 14.4 % Normal 11.0-15.0 [facility] Comment on above: Performed By: #### U JORI, PHOS, CMP, LDH #### [facility] [address] [address] [address] Juliocesar Young SEG # 7.32 103/ul Critically high 1.40-6.50 [facility] Comment on above: Performed By: #### U JORI, PHOS, CMP, LDH #### [facility] [address] [place] [address] Dr. Juliocesar Young SEG % 12.0 % Critically low 43.0-75.0 [facility] Comment on above: Performed By: #### U JORI, PHOS, CMP, LDH #### [facility] [address] [place] [address] Dr. Juliocesar Young WBC 61.0 103/ul Critically high 4.0-11.0 [facility] Comment on above: Performed By: #### U JORI, PHOS, CMP, LDH #### [facility] [address] [place] [address] Dr. Juliocesar Young LDHon 12-03-2021 LDH 183 U/L Normal 81-234 [facility] Comment on above: Performed By: #### L ACTFQ #### [facility] [address] [place] [address] Dr. Juliocesar Young PHOSPHORUSon 12-03-2021 Phosphate [Mass/Vol] 3.3 mg/dL Normal 2.6-4.7 [facility] Comment on above: Performed By: #### U JORI, PHOS, CMP, LDH #### [facility] [address] [place] [address] Dr. Juliocesar Young PROF 14(COMP METB)on 022 Albumin [Mass/Vol] 3.7 g/dL Normal 3.4-5.0 [facility] Comment on above: Performed By: #### L ACTFQ #### [facility] [address] [address] [address] Juliocesar Young Albumin/Globulin [Mass ratio] 1.0 {ratio} Normal [facility] Comment on above: Performed By: #### L ACTFQ #### [facility] [address] [place] [address] Dr. Juliocesar Young ALP [Catalytic activity/Vol] 82 U/L Normal 46-116 [facility] Comment on above: Performed By: #### L ACTFQ #### [facility] [address] [place] [address] Dr. Juliocesar Young ALT [Catalytic activity/Vol] 23 U/L Normal 14-59 [facility] Comment on above: Performed By: #### L ACTFQ #### [facility] [address] [place] [address] Dr. Juliocesar Young Anion gap [Moles/Vol] 14.0 mmol/L Normal [facility] Comment on above: Performed By: #### L ACTFQ #### [facility] [address] [place] [address] Dr. Juliocesar Young AST [Catalytic activity/Vol] 12 U/L Critically low 15-37 [facility] Comment on above: Performed By: #### L ACTFQ #### [facility] [address] [place] [address] Dr. Juliocesar Young Bilirubin [Mass/Vol] 0.4 mg/dL Normal 0.2-1.0 [facility] Comment on above: Performed By: #### L ACTFQ #### [facility] [address] [place] [address] Dr. Juliocesar Young Calcium [Mass/Vol] 8.6 mg/dL Normal 8.5-10.1 [facility] Comment on above: Performed By: #### L ACTFQ #### [facility] [address] [place] [address] Dr. Juliocesar Young Chloride [Moles/Vol] 104 mmol/L Normal 98-107 [facility] Comment on above: Performed By: #### L ACTFQ #### [facility] [address] [place] [address] Dr. Juliocesar Young CO2 [Moles/Vol] 26.2 mmol/L Normal 21.0-32.0 [facility] Comment on above: Performed By: #### L ACTFQ #### [facility] [address] [place] [address] Dr. Juliocesar Young Creatinine [Mass/Vol] 0.54 mg/dL Critically low 0.55-1.02 [facility] Comment on above: Performed By: #### L ACTFQ #### [facility] [address] [place] [address] Dr. Juliocesar Young EGFR-AF JAPANESE >60 Normal >=60 [facility] Comment on above: Performed By: #### L ACTFQ #### [facility] [address] [place] [address] Dr. Juliocesar Young EGFR-NON AF JAPANESE >60 Normal >=60 [facility] Comment on above: Performed By: #### L ACTFQ #### [facility] [address] [place] [address] Dr. Juliocesar Young Globulin (S) [Mass/Vol] 3.7 g/dL Normal [facility] Comment on above: Performed By: #### L ACTFQ #### [facility] [address] [place] [address] Dr. Juliocesar Young Glucose [Mass/Vol] 95 mg/dL Normal 74-106 [facility] Comment on above: Performed By: #### L ACTFQ #### [facility] [address] [place] [address] Dr. Juliocesar Young Potassium [Moles/Vol] 4.2 mmol/L Normal 3.5-5.1 [facility] Comment on above: Performed By: #### L ACTFQ #### [facility] [address] [place] [address] Dr. Juliocesar Yougn Protein [Mass/Vol] 7.4 g/dL Normal 6.1-8.2 [facility] Comment on above: Performed By: #### L ACTFQ #### [facility] [address] [place] [address] Dr. Juliocesar Young Sodium [Moles/Vol] 140 mmol/L Normal 136-145 [facility] Comment on above: Performed By: #### L ACTFQ #### [facility] [address] [address] [address] Juliocesar Young Urea nitrogen [Mass/Vol] 9.0 mg/dL Normal 7.0-18.0 [facility] Comment on above: Performed By: #### L ACTFQ #### [facility] [address] [address] [address] Juliocesar Young Urea nitrogen/Creatinine [Mass ratio] 16.7 mg/mg Normal [facility] Comment on above: Performed By: #### L ACTFQ #### [facility] [address] [place] [address] Dr. Juliocesar Young URIC ACID SERUMon 12-03-2021 Urate [Mass/Vol] 1.9 mg/dL Critically low 2.5-6.2 [facility] Comment on above: Performed By: #### U JORI, PHOS, CMP, LDH #### [facility] [address] [place] [address] Dr. Juliocesar Young HEPATITIS B SURFACE ANTIBODY QUANTon 11-28-2021 HEP B SURF AB 15.43 mIU/ml Normal [facility] Comment on above: Result Comment: INTE RPRETATION: NONREACTIVE<8.00 mIU/mL INDETERMINATE8.00 - 12.00 mIU/mL REACTIVE>12 mIU/mL Performed By: #### 4 [id number] #### [facility] [address] HEPATITIS B SURFACE ANTIGEN QUALon 11-28-2021 HEP B SURF AG QUAL Non-Reactive Normal NONREACTIVE [facility] Comment on above: Performed By: #### 3 1400 #### [facility] [address] [address] CBC W MANUAL DIFFon 11-26-19 22 ATYPICAL LYMPH # Normal [facility] Comment on above: Performed By: #### U JORI, PHOS, CMP, LDH #### [facility] [address] [address] [address] Juliocesar Young ATYPICAL LYMPH % Normal The [facility] Comment on above: Performed By: #### U JORI, PHOS, CMP, LDH #### [facility] [address] [address] [address] Juliocesar Young BAND # 0.0 103/ul Normal 0.0-0.3 The [facility] Comment on above: Performed By: #### U JORI, PHOS, CMP, LDH #### [facility] [address] [address] [address] Juliocesar Young BAND % 0 % Normal 0-5 The [facility] Comment on above: Performed By: #### U JORI, PHOS, CMP, LDH #### [facility] [address] [address] [address] Juliocesar Young BASOM # 0.00 103/ul Normal 0.00-0.10 [facility] Comment on above: Performed By: #### U JORI, PHOS, CMP, LDH #### [facility] [address] [place] [address] Dr. Juliocesar Young BASOM % 0.0 % Critically low 0.2-2.0 The [facility] Comment on above: Performed By: #### U JORI, PHOS, CMP, LDH #### [facility] [address] [place] [address] Dr. Juliocesar Young BLAST # Normal The [facility] Comment on above: Performed By: #### U JORI, PHOS, CMP, LDH #### [facility] [address] [address] [address] Juliocesar Young BLAST % Normal The [facility] Comment on above: Performed By: #### U JORI, PHOS, CMP, LDH #### [facility] [address] [address] [address] Juliocesar Young CORRECTED WBC Normal 4.0-11.0 The [facility] Comment on above: Performed By: #### U JORI, PHOS, CMP, LDH #### [facility] [address] [address] [address] Juliocesar Young EOS # 0.00 103/ul Normal 0.00-0.70 [facility] Comment on above: Performed By: #### U JORI, PHOS, CMP, LDH #### [facility] [address] [address] [address] Juliocesar Young EOS% 0.0 % Critically low 0.9-7.0 The [facility] Comment on above: Performed By: #### U JORI, PHOS, CMP, LDH #### [facility] [address] [place] [address] Dr. Juliocesar Young HCT 41.6 % Normal 36.0-48.0 The [facility] Comment on above: Performed By: #### U JORI, PHOS, CMP, LDH #### [facility] [address] [place] [address] Dr. Juliocesar Young HGB 13.6 g/dl Normal 12.0-16.0 The [facility] Comment on above: Performed By: #### U JORI, PHOS, CMP, LDH #### [facility] [address] [place] [address] Dr. Juliocesar Young LYMPHM # 83.42 103/ul Critically high 1.20-3.80 The [facility] Comment on above: Performed By: #### U JOIR, PHOS, CMP, LDH #### [facility] [address] [place] [address] Dr. Juliocesar Young LYMPHM% 97.0 % Critically high 20.5-60.0 The [facility] Comment on above: Performed By: #### U JORI, PHOS, CMP, LDH #### [facility] [address] [place] [address] Dr. Juliocesar Young MCH 30.6 pg Normal 26.7-34.0 [facility] Comment on above: Performed By: #### U JORI, PHOS, CMP, LDH #### [facility] [address] [place] [address] Dr. Juliocesar Young MCHC 32.7 g/dl Normal 29.9-35.2 [facility] Comment on above: Performed By: #### U JORI, PHOS, CMP, LDH #### [facility] [address] [address] [address] Juliocesar Young MCV 93.7 fL Normal 81.0-99.0 [facility] Comment on above: Performed By: #### U JORI, PHOS, CMP, LDH #### [facility] [address] [address] [address] Juliocesar Young METAMYELOCYTE # Normal The [facility] Comment on above: Performed By: #### U JORI, PHOS, CMP, LDH #### [facility] [address] [address] [address] Juliocesar Young METAMYELOCYTE % Normal The [facility] Comment on above: Performed By: #### U JORI, PHOS, CMP, LDH #### [facility] [address] [address] [address] Juliocesar Young MONOM# 0.00 103/ul Critically low 0.30-0.80 The [facility] Comment on above: Performed By: #### U JORI, PHOS, CMP, LDH #### [facility] [address] [address] [address] Juliocesar Young MONOM% 0.0 % Critically low 1.7-12.0 The [facility] Comment on above: Performed By: #### U JORI, PHOS, CMP, LDH #### [facility] [address] [address] [address] Juliocesar Young MPV 10.2 fL Normal 9.5-13.5 [facility] Comment on above: Performed By: #### U JORI, PHOS, CMP, LDH #### [facility] [address] [place] [address] Dr. Juliocesar Young MYELOCYTE # Normal The [facility] Comment on above: Performed By: #### U JORI, PHOS, CMP, LDH #### [facility] [address] [address] [address] Juliocesar Young MYELOCYTE % Normal The [facility] Comment on above: Performed By: #### U JORI, PHOS, CMP, LDH #### [facility] [address] [address] [address] Juliocesar Young [facility] Comment on above: Performed By: #### U JORI, PHOS, CMP, LDH #### [facility] [address] [address] [address] Juliocesar Young PLT 194 103/ul Normal 150-450 [facility] Comment on above: Performed By: #### U JORI, PHOS, CMP, LDH #### [facility] [address] [address] [address] Juliocesar Young RBC 4.44 106/ul Normal 4.20-5.40 [facility] Comment on above: Performed By: #### U JORI, PHOS, CMP, LDH #### [facility] [address] [place] [address] Dr. Juliocesar Young RDW 14.0 % Normal 11.0-15.0 [facility] Comment on above: Performed By: #### U JORI, PHOS, CMP, LDH #### [facility] [address] [place] [address] Dr. Juliocesar Young SEG # 2.58 103/ul Normal 1.40-6.50 [facility] Comment on above: Performed By: #### U JORI, PHOS, CMP, LDH #### [facility] [address] [place] [address] Dr. Juliocesar Young SEG % 3.0 % Critically low 43.0-75.0 [facility] Comment on above: Performed By: #### U JORI, PHOS, CMP, LDH #### [facility] [address] [place] [address] Dr. Juliocesar Young WBC 86.0 103/ul Critically high 4.0-11.0 [facility] Comment on above: Performed By: #### U JORI, PHOS, CMP, LDH #### [facility] [address] [place] [address] Dr. Juliocesar Young PERIPHERAL SMEARon 2 Pathologist Cyto stain Nom (Cvx/Vag) [ID] DR. JANESSA PRYOR [facility] Comment on above: Result Comment: Leuk ocyosis with absloute lymphocytosis and smudge cells. Some lymphocytes show increased nuclear size but still with coarse chromatin. Definite prolymphocytes are not seen. If lymphocytosis persist longer than six months further evaluation to exclude a possible lymphoproliferative disorder may be indicated. Clinical correlation is suggested. Performed By: #### U JORI, PHOS, CMP, LDH #### [facility] [address] [place] [address] Dr. Juliocesar Young PROF 14(COMP METB)on 022 Albumin [Mass/Vol] 3.6 g/dL Normal 3.4-5.0 [facility] Comment on above: Performed By: #### C MP #### [facility] [address] [place] [address] Dr. Juliocesar Young Albumin/Globulin [Mass ratio] 1.0 {ratio} Normal [facility] Comment on above: Performed By: #### C MP #### [facility] [address] [place] [address] Dr. Juliocesar Young ALP [Catalytic activity/Vol] 94 U/L Normal 46-116 [facility] Comment on above: Performed By: #### C MP #### [facility] [address] [place] [address] Dr. Juliocesar Young ALT [Catalytic activity/Vol] 26 U/L Normal 14-59 [facility] Comment on above: Performed By: #### C MP #### [facility] [address] [place] [address] Dr. Juliocesar Young Anion gap [Moles/Vol] 12.0 mmol/L Normal [facility] Comment on above: Performed By: #### C MP #### [facility] [address] [place] [address] Dr. Juliocesar Yonug AST [Catalytic activity/Vol] 17 U/L Normal 15-37 [facility] Comment on above: Performed By: #### C MP #### [facility] [address] [place] [address] Dr. Juliocesar Young Bilirubin [Mass/Vol] 0.6 mg/dL Normal 0.2-1.3 [facility] Comment on above: Performed By: #### C MP #### [facility] [address] [place], [place] [id number] Dr. Juliocesar Young Calcium [Mass/Vol] 8.3 mg/dL Critically low 8.5-10.1 Th e [facility] Comment on above: Performed By: #### C MP #### [facility] [address] [place] [address] Dr. Juliocesar Young Chloride [Moles/Vol] 105 mmol/L Normal 98-107 [facility] Comment on above: Performed By: #### C MP #### [facility] [address] [place] [address] Dr. Juliocesar Young CO2 [Moles/Vol] 26.3 mmol/L Normal 22.0-30.0 [facility] Comment on above: Performed By: #### C MP #### [facility] [address] [place] [address] Dr. Juliocesar Young Creatinine [Mass/Vol] 0.56 mg/dL Normal 0.52-1.04 [facility] Comment on above: Performed By: #### C MP #### [facility] [address] [place] [address] Dr. Juliocesar Young EGFR-AF JAPANESE >60 Normal >=60 [facility] Comment on above: Performed By: #### C MP #### [facility] [address] [place] [address] Dr. Juliocesar Young EGFR-NON AF JAPANESE >60 Normal >=60 [facility] Comment on above: Performed By: #### C MP #### [facility] [address] [place] [address] Dr. Juliocesar Young Globulin (S) [Mass/Vol] 3.7 g/dL Normal [facility] Comment on above: Performed By: #### C MP #### [facility] [address] [place] [address] Dr. Juliocesar Young Glucose [Mass/Vol] 103 mg/dL Normal 74-106 [facility] Comment on above: Performed By: #### C MP #### [facility] [address] [place] [address] Dr. Juliocesar Young Potassium [Moles/Vol] 4.3 mmol/L Normal 3.4-5.0 [facility] Comment on above: Performed By: #### C MP #### [facility] [address] [address] [address] Juliocesar Young Protein [Mass/Vol] 7.3 g/dL Normal 6.1-8.2 [facility] Comment on above: Performed By: #### C MP #### [facility] [address] [address] [address] Juliocesar Young Sodium [Moles/Vol] 139 mmol/L Normal 137-145 [facility] Comment on above: Performed By: #### C MP #### [facility] [address] [address] [address] Juliocesar Young Urea nitrogen [Mass/Vol] 10.0 mg/dL Normal 7.0-18.0 [facility] Comment on above: Performed By: #### C MP #### [facility] [address] [address] [address] Juliocesar Young Urea nitrogen/Creatinine [Mass ratio] 17.9 mg/mg Normal [facility] Comment on above: Performed By: #### C MP #### [facility] [address] [address] [address] Juliocesar Young NM PET CT WHOLE BODYon 10-[address] WHOLE BODY [facility] Department of Radiology [address] [place] [id number] ===== Patient Name: DIAMOND GUERRERO : 1975 Sex: F Age: Race: White Pt. 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 Electronically signed: Lissa Luther. Transcribed by: [email or web address], User Resident: Electronically Signed by: LISSA LUTHER @ 10/03/2021 03:35 PM Normal The [facility] Comment on above: Order Comment: , Exp eriencing increased sweating and hot flashes , Experiencing increased sweating and hot flashes , , , Ordering Provider - BOONE SALINAS MD , [facility] Glucose [Mass/Vol] 98 mg/dL Normal 70-100 The [facility] Comment on above: Performed By: #### 8 4513 #### [address] CHEST W CONTRASTon 2021 CT CHEST W CONTRAST [facility] Department of Radiology [address] [place] [address] ===== Patient Name: DIAMOND GUERRERO : 1975 Sex: F Age: Race: White Pt. Location: 29 Patient Status: D Ordered Date: 08/01/2021 11:40:00 AM Completed Date: 09/06/2021 09:27 AM Requesting Provider: BOONE SALINAS Attending Provider: BOONE SALINAS Report Copy To: Signs & Symptoms: R91.8 Other nonspecific abnormal finding of lung field I10 Lesion of lung History: [place] Is patient on meds for HTN or [...] stability. Electronically signed: Logan Wilson. Transcribed by: [email or web address], User Resident: Electronically Signed by: LOGAN WILSON @ 09/07/2021 09:32 AM Normal The [facility] Comment on above: Order Comment: in 4 months compare to previous, [facility] ABDOMEN AND PELVIS W IV CONTRAST [facility] Department of Radiology [address] [place] [id number] ===== Patient Name: DIAMOND GUERRERO : [...] cyst. Electronically signed: Angeles Hutchison. Transcribed by: [email or web address], User Resident: Electronically Signed by: ANGELES HUTCHISON @ 07/26/2021 02:12 PM Normal The [facility] CT CHEST W CONTRASTon 2020 CT CHEST W CONTRAST [facility] Department of Radiology [address] [place] [address] ===== Patient Name: DIAMOND GUERRERO [...] achievable Electronically signed: Lissa Luther. Transcribed by: [email or web address], User Resident: Electronically Signed by: LISSA LUTHER @ 07/26/2021 01:10 PM Normal The [facility] CT SOFT TISSUE NECK W CONTRA STon 07-26-2021 CT SOFT TISSUE NECK W CONTRAST [facility] Department of Radiology [address] [place] [address] ===== Patient Name: DIAMOND GUERRERO : 1975 Sex: F Age: Race: White Pt. 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 Electronically signed: Angeles Hutchison. Transcribed by: [email or web address], User Resident: Electronically Signed by: ANGELES HUTCHISON @ 07/26/2021 02:04 PM Normal The [facility] CBC W/DIFFon 07-06-2021 ABS NEUTROPHILS 10.6 10*3/uL High 1.6-7.6 The [facility] Comment on above: Performed By: #### 3 1513, 85081 #### [facility] [address] [place] [address], [facility] Basophils (Bld) [#/Vol] 0.0 10*3/uL Normal 0.0-0.2 [facility] Comment on above: Performed By: #### 3 151, 09731 #### [facility] [address] [place] [address], [place] Basophils/100 WBC (Bld) 0.0 % Normal 0.0-1.0 [facility] Comment on above: Performed By: #### 3 151, 68766 #### [facility] [address] [place] [address], [facility] Eosinophils (Bld) [#/Vol] 0.3 10*3/uL Normal 0.0-0.5 [facility] Comment on above: Performed By: #### 3 151, 72742 #### [facility] [address] [place] [address], [facility] Eosinophils/100 WBC (Bld) 1.0 % Normal 0.0-6.0 [facility] Comment on above: Performed By: #### 3 151, 92496 #### [facility] [address] [place] [address], [place] Erythrocyte distribution width (RBC) [Ratio] 12.3 % Normal 11.5-15.0 The [facility] Comment on above: Performed By: #### 3 151, 59957 #### [facility] [address] [place] [address], [facility] GIANT PLATELETS Present Normal [facility] Comment on above: Performed By: #### 3 151, 44030 #### [facility] [address] [place] [address], [place] Hematocrit (Bld) [Volume fraction] 44.6 % Normal 36.0-45.0 [facility] Comment on above: Performed By: #### 3 151, 33560 #### [facility] [address] [place] [address], [facility] Hemoglobin (Bld) [Mass/Vol] 14.5 g/dL Normal 12.0-15.0 [facility] Comment on above: Performed By: #### 3 151, 47124 #### [facility] [address] [place] [address], [facility] Lymphocytes (Bld) [#/Vol] 19.2 10*3/uL High 1.2-4.0 [facility] Comment on above: Performed By: #### 3 151, 24691 #### [facility] [address] [place] [address], [facility] Lymphocytes/100 WBC (Bld) 62.6 % High 20.0-45.0 [facility] Comment on above: Performed By: #### 3 151, 96962 #### [facility] [address] [place] [address], [facility] MCH (RBC) [Entitic mass] 29.6 pg Normal 27.0-33.0 [facility] Comment on above: Performed By: #### 3 151, 64327 #### [facility] [address] [place] [address], [facility] MCHC (RBC) [Mass/Vol] 32.5 g/dL Normal 32.0-35.0 [facility] Comment on above: Performed By: #### 3 151, 02935 #### [facility] [address] [place] [address], [facility] MCV (RBC) [Entitic vol] 91.0 fL Normal 82.0-98.0 [facility] Comment on above: Performed By: #### 3 151, 76847 #### [facility] [address] [place] [id number], [facility] Monocytes (Bld) [#/Vol] 0.6 10*3/uL Normal 0.1-1.0 [facility] Comment on above: Performed By: #### 3 1513, 69456 #### [facility] [address] [facility] [place] [place] [address], [facility] MONOS 2.0 % Low 5.0-12.0 [facility] Comment on above: Performed By: #### 3 1513, 84202 #### [facility] [address] [facility] [place] [address], [facility] Neutrophils/100 WBC (Bld) 34.4 % Low 40.0-72.0 [facility] Comment on above: Performed By: #### 3 1513, 27916 #### [facility] [address] [place] [address], [facility] Nucleated RBC/100 WBC (Bld) [Ratio] 0 % Normal 0-0 [facility] Comment on above: Performed By: #### 3 1513, 91493 #### [facility] [address] OTHER 1 Checked by Eve Crawford M.D. Normal The [facility] Comment on above: Result Comment: Resu lt changed by RAHEL on 07/07/2021 09:55. The previous value was Preliminary report; verified report to follow. Performed By: #### 3 1513, 48433 #### [facility] [address] [facility] [place] [place] [address], [facility] PLAT CNT 211 10*3/uL Normal 150-400 [facility] Comment on above: Performed By: #### 3 1513, 79681 #### [facility] [address] [facility] [place] [place] [address], [facility] RBC (Bld) [#/Vol] 4.90 10*6/uL Normal 3.80-5.00 [facility] Comment on above: Performed By: #### 3 1513, 75265 #### [facility] [address] [facility] [place] [place] [address], [facility] SMUDGE CELLS Present Normal [facility] Comment on above: Performed By: #### 3 1513, 56413 #### [facility] [address] [place] [address], [facility] WBC (Bld) [#/Vol] 30.69 10*3/uL High 4.00-10.60 [facility] Comment on above: Performed By: #### 3 1513, 41825 #### [facility] [address] [place] [address], [facility] COMP METABOLIC PANELon 07-06 Albumin [Mass/Vol] 4.3 g/dL Normal 3.5-5.7 [facility] Comment on above: Performed By: #### 1 006, 68213 #### [facility] [address] [place] [address], [facility] ALKALINE PHOSPH 91 IU/L Normal 34-104 [facility] Comment on above: Performed By: #### 1 006, 96434 #### [facility] [address] [place] [address], [facility] ALT [Catalytic activity/Vol] 12 U/L Normal 7-52 [facility] Comment on above: Performed By: #### 1 61, 43103 #### [facility] [address] [place] [address], [facility] AST [Catalytic activity/Vol] 14 U/L Normal 13-39 [facility] Comment on above: Performed By: #### 1 006, 91723 #### [facility] [address] [place] [address], [place] Bilirubin [Mass/Vol] 0.4 mg/dL Normal 0.3-1.0 [facility] Comment on above: Performed By: #### 1 61, 97182 #### [facility] [address] [place] [address], [facility] Calcium [Mass/Vol] 8.9 mg/dL Normal 8.6-10.3 [facility] Comment on above: Performed By: #### 1 61, 93368 #### [facility] [address] [place] [address], [facility] Chloride [Moles/Vol] 107 mmol/L Normal 98-107 [facility] Comment on above: Performed By: #### 1 61, 13133 #### [facility] [address] [place] [address], [place] CO2 [Moles/Vol] 22 mmol/L Normal 21-31 [facility] Comment on above: Performed By: #### 1 61, 90930 #### [facility] [address] [place] [address], [place] Creatinine [Mass/Vol] 0.58 mg/dL Low 0.60-1.20 [facility] Comment on above: Performed By: #### 1 61, 73354 #### [facility] [address] [place] [address], [place] GFR/1.73 sq M.predicted among blacks MDRD (S/P/Bld) [Vol rate/Area] mL/min/{1.73_m2} Normal >60 [facility] Comment on above: Performed By: #### 1 61, 08696 #### [facility] [address] [place] [address], [place] GFR/1.73 sq M.predicted among non-blacks MDRD (S/P/Bld) [Vol rate/Area] mL/min/{1.73_m2} Normal >60 [facility] Comment on above: Performed By: #### 1 61, 50065 #### [facility] [address] [place] [address], [place] Glucose [Mass/Vol] 87 mg/dL Normal 70-100 [facility] Comment on above: Performed By: #### 1 61, 76552 #### [facility] [address] [place] [address], [facility] Potassium [Moles/Vol] 4.2 mmol/L Normal 3.5-5.1 [facility] Comment on above: Performed By: #### 1 006, [id number] #### [facility] [address] [place] [address], [facility] Protein [Mass/Vol] 6.9 g/dL Normal 6.0-8.3 [facility] Comment on above: Performed By: #### 1 006, [id number] #### [facility] [address] [place] [address], [facility] Sodium [Moles/Vol] 138 mmol/L Normal 136-145 [facility] Comment on above: Performed By: #### 1 006, [id number] #### [facility] [address] [place] [address], [facility] Urea nitrogen [Mass/Vol] 16 mg/dL Normal 7-25 [facility] Comment on above: Performed By: #### 1 006, [id number] #### [facility] [address] [facility]. [address] HEMATOLOGY COMPLETE [facility]I ON [facility] RESULT Results to be mailed directly to physician's office by reference lab. Normal [facility] Comment on above: Result Comment: Test performed by [facility] * [address] [place] [address], [address] * [place], [place] * [phone] Rn Corrections: Anupam Beck M.D. RESULTS FAXED TO [phone] Performed By: #### 3 1839 #### [facility] [address] [place] [address], [facility] HEMOGRAM VIRY POCon 07-06-20 21 ABS NEUT VIRY POC 5.4 10*3/uL Normal 1.6-7.6 [facility] Comment on above: Performed By: #### 3 0613, [id number] #### [facility] [address] [place] [address], [facility] Hematocrit (Bld) [Volume fraction] 43.6 % Normal 36.0-45.0 [facility] Comment on above: Performed By: #### 3 1513, [id number] #### [facility] [address] [place] [address], [facility] Hemoglobin (Bld) [Mass/Vol] 14.6 g/dL Normal 12.0-15.0 [facility] Comment on above: Performed By: #### 3 1513, [id number] #### [facility] [address] [place] [id number], [facility] PLAT CNT VIRY POC 205 10*3/uL Normal 150-400 [facility] Comment on above: Performed By: #### 3 1513, [id number] #### [facility] [address] [place] [address], [facility] WBC (Bld) [#/Vol] 29.9 10*3/uL High 4.0-10.6 [facility] Comment on above: Performed By: #### 3 1513, 12638 #### [facility] [address] [place] [address], [facility] LDH BLOODon 07-06-2021 LDH 183 Units/L Normal 140-271 [facility] Comment on above: Performed By: #### 1 0062, [id number] #### [facility] [address] [place] [address], [facility] PROTEIN ELECT Damian 07-06-2021 Protein [Mass/Vol] 6.8 g/dL Normal 6.0-8.3 [facility] Comment on above: Performed By: #### 4 1661 #### [facility] [address] [place] [address], [place] PROTEIN ELECT Normal [facility] Comment on above: Result Comment: Norm al Pattern. Prominent albumin peak is seen along with normal fractions of alpha 1, alpha 2, beta and gamma globulins. SEE SEPARATE REPORT Performed By: #### 4 1661 #### [facility] [address] [place] [address], [facility] Vital Signs Date Time Vital Sign Value Performing Clinician Facility 02-22-2024 11:13-0400 Body height 172.72 cm [facility] 02-22-2024 11:13-0400 Body mass index (BMI) [Ratio] 34.9 kg/m2 [facility] 02-22-2024 11:13-0400 Body weight 104.32 kg [facility] 02-22-2024 11:13-0400 Diastolic blood pressure 74 mm[Hg] [facility] 02-22-2024 11:13-0400 Heart rate 72 /min [facility] 02-22-2024 11:13-0400 SaO2% (BldA) [Mass fraction] 97 % [facility] 02-22-2024 11:13-0400 Systolic blood pressure 132 mm[Hg] [facility] 12-19-2023 11:39-0400 Body height 172.72 cm [facility] 12-19-2023 11:39-0400 Body mass index (BMI) [Ratio] 34.3 kg/m2 [facility] 12-19-2023 11:39-0400 Body weight 102.51 kg [facility] 12-19-2023 11:39-0400 Diastolic blood pressure 74 mm[Hg] [facility] 12-19-2023 11:39-0400 Heart rate 75 /min [facility] 12-19-2023 11:39-0400 SaO2% (BldA) [Mass fraction] 98 % [facility] 12-19-2023 11:39-0400 Systolic blood pressure 116 mm[Hg] [facility] 02-21-2023 14:00-0400 Body height Bernice Chavis Other [facility] Other 02-21-2023 14:00-0400 Body mass index (BMI) [Ratio] 32.23 kg/m2 Bernice Chavis Other [facility] Other 02-21-2023 14:00-0400 Body temperature 98.2 [degF] Bernice Palmira Other [facility] Other 02-21-2023 14:00-0400 Body weight 96.16 kg Bernice Palmira Other [facility] Other 02-21-2023 14:00-0400 Diastolic blood pressure 86 mm[Hg] Bernice Palmira Other [facility] Other 02-21-2023 14:00-0400 SaO2% (BldA) [Mass fraction] 99 % Bernice Palmira Other [facility] Other 02-21-2023 14:00-0400 Systolic blood pressure 122 mm[Hg] Bernice Palmira Other [facility] Other 06-13-2021 12:15-0500 Body height Bernice Kumarmer Other [facility] Other 06-13-2021 12:15-0500 Body mass index (BMI) [Ratio] 33.69 kg/m2 Bernice Palmira Other [facility] Other 06-13-2021 12:15-0500 Body temperature 98.1 [degF] Bernice Chavis Other [facility] Other 06-13-2021 12:15-0500 Body weight 100.52 kg Bernice Chavis Other [facility] Other 06-13-2021 12:15-0500 Diastolic blood pressure 84 mm[Hg] Bernice Chavis Other [facility] Other 06-13-2021 12:15-0500 Respiratory rate 18 /min Bernice Chavis Other [facility] Other 06-13-2021 12:15-0500 SaO2% (BldA) [Mass fraction] 97 % Bernice Chavis Other [facility] Other 06-13-2021 12:15-0500 Systolic blood pressure 124 mm[Hg] Bernice Chavis Other [facility] Other Encounters Encounter Date Encounter Type Care Provider Facility Start: 06-12-2024 End: 06-12-2024 Patient encounter procedure Bernice Chavis DO Work Phone: [facility] Work Phone: Start: 06-12-2024 End: 06-12-2024 ambulatory Bernice Chavis Facility:[facility] Start: 05-27-2024 Non-patient / Non-visit Coby franklin Palmira DO Work Phone: [facility] Work Phone: Start: 02-22-2024 End: 02-22-2024 ambulatory [facility] Work Phone: Start: 02-22-2024 End: 02-22-2024 Patient encounter procedure [facility] [place] Work Phone: Start: 01-29-2024 Non-patient / Non-visit [facility] Work Phone: Start: 12-19-2023 End: 12-19-2023 Patient encounter procedure [facility] [place] Work Phone: Start: 05-31-2023 End: 05-31-2023 ambulatory Bernice Chavis Other [facility] Other Start: 05-31-2023 Telephone encounter Bernice Roper [facility] [employer] Start: 05-28-2023 End: 05-28-2023 Patient encounter procedure DO Bernice Chavis Work Phone: [facility] Work Phone: Start: 05-28-2023 End: 05-28-2023 ambulatory DO Bernice Chavis Work Phone: [facility] Work Phone: Start: 05-28-2023 Telephone encounter Bernice Roper [facility] Start: 05-22-2023 End: 05-22-2023 ambulatory DO Bernice Chavis Work Phone: [facility] Work Phone: Start: 05-22-2023 End: 05-22-2023 Patient encounter procedure DO Bernice Chavis Work Phone: [facility] Work Phone: Start: 03-09-2023 End: 03-09-2023 ambulatory Vicente Tam Other [facility] Other Start: 03-09-2023 Telephone encounter Vicente LIRIANO [facility] [employer] Start: 02-21-2023 End: 02-21-2023 ambulatory Bernice Palmira Other [facility] Other Start: 02-21-2023 Encounter for genera l adult medical examination without abnormal findings Bernice Chavis [facility] [place] Start: 02-21-2023 Periodic preventive med est patient 40-64yrs Bernice Chavis [facility] [place] Start: 10-11-2022 End: 10-12-2022 ambulatory MOHAMMAD SALINAS Facility: Start: 07-18-2022 End: 07-19-2022 ambulatory MOHAMMAD SALINAS Facility:[facility] Start: 04-04-2022 End: 04-05-2022 ambulatory MOHAMMAD SALINAS Facility:[facility] Start: 03-24-2022 End: 03-25-2022 ambulatory MOHAMMAD H SALINAS Facility:[facility] Start: 03-16-2022 End: 03-16-[address] SARITHA XAVIER . Facility:[facility] Start: 03-15-2022 End: 03-15-[address] SARITHA XAVIER . Facility:[facility] Start: 03-13-2022 End: 03-14-2022 ambulatory MOHAMMAD H SALINAS Facility:[facility] Start: 02-23-2022 End: 02-24-2022 ambulatory MOHAMMAD SALINAS Facility:[facility] Start: 02-03-2022 End: 02-03-2022 Patient encounter procedure MOHAMMAD JAVIER SALINAS [facility] Start: 01-26-2022 End: 01-27-2022 ambulatory MOHAMMAD SALINAS Facility:[facility] Start: 01-10-2022 End: 01-11-2022 ambulatory MOHAMMAD SALINAS Facility:[facility] Start: 12-30-2021 End: 12-30-2021 ambulatory MOHAMMAD H SALINAS Facility:[facility] Start: 12-29-2021 End: 12-30-2021 ambulatory MOHAMMAD SALINAS Facility:[facility] Start: 12-26-2021 End: 12-26-2021 ambulatory REFERRED SELF Facility:[facility] Start: 12-20-2021 End: 12-21-[address] DOCTOR NGUYEN Facility:[facility] Start: 12-12-2021 End: 12-13-[address] DOCTOR NGUYEN Facility:[facility] Start: 12-05-2021 End: 12-05-2021 ambulatory REFERRED SELF Facility:[facility] Start: 12-03-2021 End: 12-04-2021 ambulatory BERNICE CHAVIS Facility:[facility] Start: 11-29-2021 End: 11-29-2021 ambulatory MOHAMMAD H SALINAS Facility:[facility] Start: 11-25-2021 End: 11-26-2021 ambulatory BERNICE CHAVIS Facility:[facility] Start: 10-03-2021 End: 10-04-2021 ambulatory REFERRED SELF Facility:[facility] Start: 09-28-2021 End: 09-28-2021 ambulatory Bernice Chavis Other [facility] Other Start: 09-28-2021 Telephone encounter Bernice Roper [facility] [place] Start: 09-27-2021 End: 09-27-2021 ambulatory Bernice Chavis Other [facility] Other Start: 09-27-2021 Telephone encounter Bernice Roper [facility] [place] Start: 09-06-2021 End: 09-07-2021 ambulatory MOHAMMAD H SALINAS Facility:[facility] Start: 07-26-2021 End: 07-27-2021 ambulatory MOHAMMAD H SALINAS Facility:[facility] Start: 06-26-2021 End: 06-26-2021 ambulatory Bernice Chavis Other [facility] Other Start: 06-26-2021 Encounter by compute r link Bernice Palmira [facility] [place] Start: 06-13-2021 End: 06-13-2021 ambulatory Bernice Chavis Other [facility] Other Start: 06-13-2021 Office outpatient vi sit 15 minutes Bernice Chavis [facility] [place] Start: 06-13-2021 Telephone encounter Bernice Roper [place] [facility] Procedures Date Procedure Procedure Detail Performing Clinician Start: 06-12-2024 Screening mammograph y of bilateral breasts Bernice Chavis DO Work Phone: Start: 05-28-2023 Mammography of right breast DO Bernice Chavis Work Phone: Start: 05-28-2023 Ultrasonography of r ight breast DO Bernice Palmira Work Phone: Start: 05-22-2023 Screening mammograph y of bilateral breasts DO Bernice Chavis Work Phone: Start: 09-17-2017 right transforaminal epidural steroid injection L3-4 1 MOHAMMAD SALINAS Comment on above: 90% relief for 5 day s ankle surgery 2 MOHAMMAD MOODY HID Comment on above: left ankle cervical spine surgery 3 MOH AMMAD SALINAS Comment on above: C5/C6--[facility] led[facility] Hysterectomy MOHAMMAD SALINAS Plan of Treatment Date Care Activity Detail Author [facility] Immunizations Immunization Date Immunization Notes Care Provider Fa cility 12-11-2020 COVID-19, mRNA, LNP- S, PF, 30 mcg/0.3 mL dose MOHAMMAD SALINAS [facility] Comment on above: Reason for Medicatio n: Prophylaxis 11-20-2020 COVID-19, mRNA, LNP- S, PF, 30 mcg/0.3 mL dose MOHAMMAD SALINAS [facility] Comment on above: Reason for Medicatio n: Prophylaxis Payers Date Payer Category Payer Medicaid [id number] 2016 Unknown [id number] 2.1 [id number] 1974 Unknown [id number] 2.16.8 40.1.642345.3.579.2.647 1974 Unknown [id number] 2.16.8 40.1.278956.3.579.2.647 1974 Unknown [id number] 2.16.8 40.1.132884.3.579.2. 1974 Unknown [id number] 2.16.8 40.1.987411.3.579.2.647 1974 Unknown [id number] 2.16.8 40.1.191158.3.579.2. 1974 Unknown [id number] 2.16.8 40.1.190713.3.579.2.647 1974 Unknown [id number] 2.16.8 40.1.568645.3.579.2.647 1974 Unknown [id number] 2.16.8 40.1.573397.3.579.2.647 1974 Unknown [id number] 2.16.8 40.1.313473.3.579.2.647 1974 Unknown [id number] 2.16.84 0.1.324808.3.579.2.593 1974 Unknown [id number] 2.16.84 0.1.045140.3.579.2.593 1974 Unknown [id number] 2.16.84 0.1.168129.3.579.2.593 1974 Unknown [id number] 2.16.84 0.1.717846.3.579.2.593 1974 Unknown [id number] 2.16.84 0.1.711205.3.579.2.593 1974 Unknown [id number] 2.16.84 0.1.126361.3.579.2.593 1974 Unknown [id number] 2.16.84 0.1.758757.3.579.2.593 1974 Unknown [id number] 2.16.84 0.1.896971.3.579.2.593 1974 Unknown [id number] 2.16.84 0.1.979757.3.579.2.593 1974 Unknown [id number] 2.16.84 0.1.800337.3.579.2.593 1974 Unknown [id number] 2.16.84 0.1.656443.3.579.2.593 1974 Unknown [id number] 2.16.84 0.1.767685.3.579.2.593 1974 Unknown [id number] 2.16.84 0.1.294201.3.579.2.593 1974 Unknown [id number] 2.16.84 0.1.819593.3.579.2.593 1959 Unknown [id number] Self-pay Self Pay [id number] Social History Date Type Detail Facility Unknown if ever smoked [facility] Other Sex Assigned At [facility] Other Tobacco smoking status No Smokin g Status Entered [facility] Start: 1975 Sex Assigned At Female F [facility] Start: 03-04-2021 End: 03-04-2021 Tobacco smoking status NHIS Ex-smoker (finding) [facility] Start: 06-13-2024 Sex Female (finding) [facility] Clinical Notes 06-13-2021 to 06-24-2024 Note Date & Type Note Facility 06-24-2024 Note Refill call complete Sonia WorthyD, BCACP 11/11/24 4:33 PM [facility] [phone] [facility] 06-24-2024 Note Refill call complete . Kayleen Faustin PharmD, BCACP 08/22/24 3:44 PM [facility] [phone] [facility] 06-24-2024 Note Refill call complete meme Hayden CPhT [facility] 10/16/24 11:54 AM [facility] 06-24-2024 Note Enrolling patient in patient management [...] identify drug-drug interactions, assess medication appropriateness, and evp general counsel on the expectations of therapy specific to the above medication. Specialist: Dr. Salinas (Patient transferring care to [facility] with Dr. Mcintosh) Indication: Chronic lymphocytic leukemia (CLL) (ICD10 C91.10) PHARMACIST REVIEW OF INITIAL CLINICAL ASSESSMENT & PAST THERAPIES 10/12/2021 in [place] by Kayleen Moise from [place] (10/12/21): Supervising Physician & Clinic: Dr. Salinas, [facility] Diamond is a 46 year-old female with [...] CMP: WNL CBC: WBC 36.4, Lymphocytes 86%, 97070 Based on first line therapy per NCCN [...] following address was verified with the patient: [address] [place] [phone] Phone number and emergency contact information on file in [place] was verified with the patient. Yes; safe contact number/address: [phone] ASSESSMENT/CARE PLAN: Patient's diagnosis, comorbidities, health problems, [...] PROVIDED: The patient (more content not included)... [facility] 06-24-2024 Note Refill call complete d Pham Hayden CPhT [facility] 06/24/24 8:43 AM [facility] 05-28-2024 Note Specialty Pharmacy - Refill Outreach [...] overall satisfaction with the services provided by [facility]? (Scale 1-5: 1 being poor, 5 being excellent): 5 Does the patient have any questions for a pharmacist or request to speak to a pharmacist? No Is clinical intervention necessary? No The following information has been verified with the patient: Address: [address] [place] [phone] Rx with be obtained by: Mail Expected date of mail to be delivered: 05/31/2024 Next outreach to patient: approximately 3 weeks (06/18/2024) Pham Hayden CPhT [facility] 05/28/24 3:10 PM [facility] 02-27-2024 Note Specialty Pharmacy I nitial Assessment [...] identify drug-drug interactions, assess medication appropriateness, and evp general counsel on the expectations of therapy specific to the above medication. Specialist: Dr. Salinas (Patient transferring care to [facility] with Dr. Mcintosh) Indication: Chronic lymphocytic leukemia (CLL) (ICD10 C91.10) PHARMACIST REVIEW OF INITIAL CLINICAL ASSESSMENT & PAST THERAPIES 10/12/2021 in [place] by Kayleen Moise from [place] (10/12/21): Supervising Physician & Clinic: Dr. Salinas, [facility] Diamond is a 46 year-old female with [...] CMP: WNL CBC: WBC 36.4, Lymphocytes 86%, 80667 Based on first line therapy per NCCN [...] following address was verified with the patient: [address] [place] [phone] Phone number and emergency contact information on file in [place] was verified with the patient. Yes; safe contact number/address: [phone] ASSESSMENT/CARE PLAN: Patient's diagnosis, comorbidities, health problems, [...] of therapy [x] (more content not included)... [facility] 02-21-2023 Evaluation note Encounter Date Diagnosis Assessment [...] Feb, Tree nut allergy (ICD-10 - Z91.018) [facility] Other 02-22-2022 Evaluation note* Encounter Date Diagnosis Assessment Notes Treatment Notes Treatment Clinical Notes Sep, Left breast lump (ICD-10 - N63.20) Sep, Screening mammogram, encounter for (ICD-10 - Z12.31) [facility] Other 11-08-2021 Evaluation note* Encounter Date Diagnosis Assessment Notes Treatment Notes Treatment Clinical Notes Jun, Tree nut allergy (ICD-10 - Z91.018) Based on patient's history of having sudden allergic reactions to ingesting tree nuts she will be sent for allergy testing by an netting inspector. The foods that she is stating triggers [...] surgeon so it will be refilled here. [facility] Other Evaluation + Plan note No data available for this section [facility] Other Evaluation noteNo assessment information available [facility] Work Phone: Evaluation note* Diagnosis Onset Date Resolution Status Impingement of left shoulder noneactive Subacromial bursitis of left shoulder joint noneactive CLL (chronic lymphocytic leukemia) chronic PTSD (post-traumatic stress disorder) chronic Spinal stenosis chronic Screening for colon cancer n oneactive Well adult noneactive [facility] Work Phone: History general Narrative - Reported* [...] cervical fusion 05/2020 Hospitalization History See above [facility] Other Hospital Discharge instructions No data available for this section [facility] instructionsAmbulatory Orders* AMB Cologuard Time Frame: 02/22/24, Location: Determined By Patient [facility] Work Phone: Progress note No data available for this section [facility] Reason for Referral Reason colorectal screening Diagnosis 1 Screening for colon cancer (Z12.11) Referral Organization [facility] Family Maurice Gallardo Referring Provider First Name Bernice Referring Provider Last Name Palmira Referring Provider Specialty Family Prac yusuf Referred Organization [facility] Gastroenterolo gy Referred Address [address],[place] [address] ,[place], [place],[address] Referred Provider Specialty Gastroentero logy Referral Priority Routine Reason * FU 06/20 Patient feels she is allergic to tree nuts as she had an issue after eating a pecan, assess for allergy testing Diagnosis 1 Tree nut allergy (Z9 1.018) Referral Organization [facility] Family Maurice Gallardo Referring Provider First Name Bernice Referring Provider Last Name Palmira Referring Provider Specialty Family Prac yusuf Referred Organization [facility] Referred Provider Harry King Referred Address ,[place], [place],[address] Referred Provider Specialty Allergy/Immu nology Referral Priority [...] resultsMAIL PPWawvmammogran and ultra soundCancer care at [facility] Care Team (unrecognized sect ion [...] Chavis , DO Primary Care Provider Active Start: January 29, 2024 Rachel Mcintosh MD Attending Provider Active St art: January 29, 2024 Team Status: Inactive Member Role Status Dates Bernice Chavis , DO Primary Care Provi jacqueline, Attending Provider Active Start: February 22, 2024 End: February 22, 2024 INFORMATION SOURCE (unrecogn ized section and content) DATE CREATED AUTHOR 02/22/2022 [facility] DATE CREATED AUTHOR AUTHOR'S ORGANIZ ATION 03/28/2022 [facility] DATE CREATED AUTHOR AUTHOR'S ORGANIZ ATION 10/15/2022 [facility] DATE CREATED AUTHOR AUTHOR'S ORGANIZ ATION 06/14/2024 [facility] DATE CREATED AUTHOR AUTHOR'S ORGANIZ ATION 11/13/2024 [facility] Goals (unrecognized section and content) Goals [...] BE BASED ON THE PRIMARY CLINICAL RECORDS. [facility]. provides no warranty or guarantee of the accuracy or completeness of information in this document.
== END 2024-11-17 15:19 | disposition home or self-care (01) ==
LOC: PETCT 15:19
PROVIDERS: Visit Provider Internal Medicine Hematology & Oncology
DX: C91.10 Chronic lymphocytic leukemia of B-cell type not having achieved remission (principal)
CPT/HCPCS: 78815; A9552

== ENCOUNTER 2024-12-08 07:23 | Outpatient (OUT) | payer MEDICAID, SELFPAY ==
--- NOTE | 2024-12-08 | NM_ITS ---
The [place] [id number] Patient Name: DIAMOND MONTGOMERY MRN: [id number] date: 1975 Sex: F Assigned Patient Location: [place] Current Patient Location: [place] Accession/Order Number: [id number] Exam Date: 12/08/2024 12:56 Report Date: 12/08/2024 12:57 At the request of: ALIX OLIVARES MD Procedure: NM bone scan whole body WHOLE-BODY BONE SCAN: CLINICAL HISTORY: NON-SPECIFIC BONE LESION, HX OF CLL, EVAL ARTHRITIS VS METS COMPARISON: Left femur series 12/08/2024 PET/CT 11/18/2024 TECHNIQUE: Following the intravenous administration of 24.3 mCi of technetium 99m labeled MDP, delayed minified views of the entire skeleton were obtained. FINDINGS: There is normal distribution of radionucleotide within the axial and appendicular skeleton. There are no focal areas of increased uptake or photopenia that are suspicious for metastatic disease specifically involving the left femur.. Activity involving the visualized joints likely degenerative in nature. SD/SD bone scan whole body IMPRESSION: NO EVIDENCE OF OSSEOUS METASTASIS SPECIFICALLY WITHIN THE LEFT FEMUR.. Impression dictated by: Silvestre Lizarraga Jr., D.O. 12/08/2024 12:57 PM Dictation Location: [place] [address] Electronically authenticated by: [id number] Date: 12/08/2024 12:57
--- NOTE | 2024-12-08 07:35 | XR_ITS ---
The [address] [address] Patient Name: DIAMOND MONTGOMERY MRN: [id number] date: 1975 Sex: F [place]igned Patient Location: [place] Current Patient Location: [place] Accession/Order Number: [id number] Exam Date: 12/08/2024 10:27 Report Date: 12/08/2024 10:31 At the request of: ALIX OLIVARES MD Procedure: XR femur LT 2V Left femur 2 views. Reason for exam: Abnormal PET scan COMPARISON: PET/CT 11/18/2024 FINDINGS: No focal soft tissue abnormality or acute bony process is seen. No suspicious lesion is seen. No bony destruction. XR/XR femur LT 2V IMPRESSION: No suspicious bony lesion is seen involving the left femur. Impression dictated by: Silvestre Lizarraga Jr., D.OHilton 12/08/2024 10:31 AM Dictation Location: [place] [address] Electronically authenticated by: [id number] Y Date: 12/08/2024 10:31
== END 2024-12-08 07:24 | disposition home or self-care (01) ==
LOC: NM 07:23
PROVIDERS: Visit Provider Internal Medicine Hematology & Oncology
DX: C91.10 Chronic lymphocytic leukemia of B-cell type not having achieved remission (principal)
CPT/HCPCS: 73552; 78306; A9503

== ENCOUNTER 2025-03-09 15:04 | Outpatient (OUT) | payer MEDICAID, SELFPAY ==
--- OUTSIDE RECORDS SUMMARY | 2013-12-10 01:58 | XMS_ITS | Encounter Summary ---
Author Organization [facility] Address [address], [address] [place] [address] Care Team Providers Care Assistant Attorney General Name Role Phone Jason Valderrama MD Primary Care Provider + Encounter Details Date Type Department Care Team (Late st Contact Info) Description 12/10/2013 1:58 AM EDT Hospital Encounter MTH PRE ADMIT [phone] Leilani Lomas, [address] [place] [address] Social History Tobacco Use Types Packs/Day Years Used Date Smoking Tobacco: Every Day Cigarettes 0.5 22 Smokeless Tobacco: Never Alcohol Use Standard Drinks/Week Comments No 0 (1 standard drink = 0.6 oz pur e alcohol) Comments No Sex and Gender Information Value Date Recorded Sex Assigned at Not on file Legal Sex Female 10:28 AM EST Gender Identity Not on file Sexual Orientation Not on file documented as of this encounter Last Filed Vital Signs Vital Sign Reading Time Taken Comments Blood Pressure 125/70 12/10/2013 10:08 AM EDT Pulse 76 12/10/2013 10:08 AM EDT Temperature - - Respiratory Rate 20 12/10/2013 10:08 AM EDT Oxygen Saturation 99% 12/10/2013 10:08 AM EDT Inhaled Oxygen Concentration - - Weight 81.7 kg (180 lb 3 oz) 12/10/2013 10:08 AM EDT Height 177.8 cm (5' 10 ) 12/10/2013 10:08 AM EDT Body Mass Index 25.85 12/10/2013 10:08 AM EDT documented in this encounter Plan of Treatment Not on file documented as of this encounter Goals Goal Patient Goal Type Associated Problems Recent Progress Patient-Stated? Author To get referred to a neurologist. Lifestyle On track( 3:14 PM EDT) No Arline Watt Quit smoking. Lifestyle Not on track( 013 8:57 AM EDT) No Arline Watt Quit smoking. Lifestyle No Shukri Arline documented as of this encounter Procedures Procedure Name Priority Date/Time Associated Diagnosis Comments EKG 12-LEAD Routine 12/10/2013 11:00 AM EDT XR CHEST (2 VW) Routine 12/10/2013 10:54 AM EDT CBC WITH AUTO DIFFERENTIAL Routine 12/10/2013 10:40 AM EDT APTT Routine 12/10/2013 10:40 AM EDT PROTIME-INR Routine 12/10/2013 10:40 AM EDT TYPE AND SCREEN Routine 12/10/2013 10:40 AM EDT COMPREHENSIVE METABOLIC PANEL Routine 12/10/2013 10:40 AM EDT MICROSCOPIC URINALYSIS Routine 12/10/2013 10:24 AM EDT UA W/REFLEX CULTURE [employer] Label Print 12/10/2013 10:24 AM EDT documented in this encounter Results * EKG 12 lead pre-op (12/10/2013 11:00 AM EDT) Ventricular Rate 59 BPM [facility] Atrial Rate 59 BPM [facility] P-R Interval 148 ms [facility] H RADIOLOGY QRS Duration 74 ms [facility] H RADIOLOGY Q-T Interval 394 ms [facility] H RADIOLOGY QTc Calculation (Bazett) 390 ms [facility] P [employer] 42 degrees [facility] RADIOLOGY R [employer] 25 degrees [facility] RADIOLOGY T [employer] 55 degrees [facility] RADIOLOGY 12/10/2013 11:0 0 AM EDT Narrative [facility] RADI[facility] - 12/11/2013 10:09 AM EDT Sinus bradycardia with sinus arrhythmiaLow voltage QRSBorderline ECGNo previous ECGs available Procedure Note 12/11/2013 Sinus bradycardia with sinus arrhythmiaLow voltage QRSBorderline ECGNoprevious ECGs available us Leilani Lomas DO ECG ORDERABLES Final Result [facility] RADIOLOG[facility] * XR Chest Standard TWO VW (12/10/2013 10:54 AM EDT) Anatomical Region Laterality Modality Chest Radiographic Yazmin ging 12/10/2013 10:5 4 AM EDT Narrative 12/11/2013 10:58 AM EDT FINAL Procedure: TRT Dec 10 2013 10:54AM [id number] CHEST PA AND LATERAL Reason for Exam: ^Preop FULL RESULT: REPORT: CHEST PA AND LATERAL INDICATION: Preoperative evaluation. FINDINGS:The lungs are well expanded and clear bilaterally. No focal consolidation, pleural effusion or pneumothorax. Normal cardiac and mediastinal silhouettes. No free air. Mild degenerative changes of the spine. IMPRESSION: NORMAL CHEST. In order to promptly notify physicians concerning their patients, this unconfirmed document is being released. It is not considered final until reviewed and signed. Electronically Signed by Marcello Godinez M.D. 12/11/2013 10:58 A ANKIT/francoise A A CC: Esther Davidson M.D. IMPRESSION: SEE ABOVE. Transcribed by: [facility] on Dec 11 2013 10:58A Read by: MARCELLO GODINEZ M.D. [id number] on Dec 10 2013 11:42A Electronically Signed by: DR. MARCELLO GODINEZ M.D. on: Dec 11 2013 10:58A Procedure Note Marcello Godinez MD - 12/11/2013 FINAL Procedure: TRT Dec 10 2013 10:54AM [id number] CHEST PA AND LATERAL Reason for Exam: ^Preop FULL RESULT: REPORT: CHEST PA AND LATERAL INDICATION: Preoperative evaluation. FINDINGS:The lungs are well expanded and clear bilaterally. No focal consolidation, pleural effusion or pneumothorax. Normal cardiac and mediastinal silhouettes. No free air. Mild degenerative changes of the spine. IMPRESSION: NORMAL CHEST. In order to promptly notify physicians concerning their patients, this unconfirmed document is being released. It is not considered finaluntil reviewed and signed. Electronically Signed by Marcello Godinez M.D. 12/11/2013 10:58 A ANKIT/francoise A A CC: Esther Davidson M.D. IMPRESSION: SEE ABOVE. Transcribed by: [facility] on Dec 11 2013 10:58A Read by: MARCELLO GODINEZ M.D. [id number] on Dec 10 2013 11:42A Electronically Signed by: DR. MARCELLO GODINEZ M.D. on: Dec 11 2013 10:58A Leilani Lomas DO IMG DIAGNOSTIC IMAGING ORDERA BLES Edited Result - Final * TYPE AND SCREEN (12/10/2013 10:40 AM EDT) Expiration Date 12/17/2013 4 11:38 AM EDT [facility] Arm Band Number [id number] 11:38 AM EDT [facility] ABO/Rh O POSITIVE 12/10/2013 11:38 AM EDT [facility] Antibody Screen NEGATIVE 4 12:20 PM EDT [facility] Comment: Performed at [address] [place] [address] ([phone] BLOOD SPECIMEN / Unknown 12/10/2013 10:40 AM EDT 12/10/2013 10:42 AM EDT Leilani Glance DO BLOOD BANK TEST ORDERABLES Fi nal Result Performing Organization Address City/[facility]/ZIP Co de Phone Number [facility] [address] [place] [address] [facility] * APTT (12/10/2013 10:40 AM EDT) APTT 28.5 23.2 - 34.4 sec 12/10/2013 11:20 AM EDT [facility] Comment: Performed at [address] [place] [place] [address] ([phone] BLOOD SPECIMEN / Unknown 12/10/2013 10:40 AM EDT 12/10/2013 10:41 AM EDT Leilani Lomas DO HEMATOLOGY ORDERABLES Final R esult Performing Organization Address [facility] Co de Phone Number [facility] [address] [place] [address] [facility] * Protime-INR (12/10/2013 10:40 AM EDT) Pathologist [facility] Protime 10.6 9.7 - 12.2 sec 12/10/2013 11:20 AM EDT [facility] INR 1.0 0.9 - 1.2 12/10/2013 11:20 AM EDT [facility] Comment: Performed at [address] [place] [id number] ([phone] BLOOD SPECIMEN / Unknown 12/10/2013 10:40 AM EDT 12/10/2013 10:41 AM EDT us Leilani Lomas DO HEMATOLOGY ORDERABLES Final R esult Performing Organization Address City/[facility]/ZIP Co de Phone Number [facility] [address] [place] [address] [facility] * Comprehensive metabolic panel (12/10/2013 10:40 AM EDT) Glucose 87 70 - 99 mg/dL 12/10/2013 11:34 AM EDT [facility] BUN 8 6 - 20 mg/dL 12/10/2013 11:34 AM EDT [facility] Creatinine 0.52 0.50 - 0.90 mg/dL 12/10/2013 11:34 AM EDT [facility] BUN/Creatinine Ratio 15 9 - 20 12/10/2013 11:34 AM EDT [facility] Calcium 8.9 8.6 - 10.0 mg/dL 12/10/2013 11:34 AM EDT [facility] Sodium 139 136 - 145 mmol/L 12/10/2013 11:34 AM EDT [facility] Potassium 3.8 3.5 - 5.1 mmol/L 12/10/2013 11:34 AM EDT [facility] Chloride 105 98 - 107 mmol/L 12/10/2013 11:34 AM EDT [facility] CO2 28 20 - 31 mmol/L 12/10/2013 11:34 AM EDT [facility] Anion Gap NOT REPORTED mmol/L [facility] Alkaline Phosphatase 65 35 - 104 U/L 12/10/2013 11:34 AM EDT [facility] ALT 10 5 - 33 U/L 12/10/2013 11:34 AM EDT [facility] AST 12 <32 U/L 12/10/2013 11:34 AM EDT [facility] Total Bilirubin 0.40 0.3 - 1.2 mg/dL 12/10/2013 11:34 AM EDT [facility] Total Protein 6.9 6.4 - 8.3 g/dL 12/10/2013 11:34 AM EDT [facility] Albumin 4.4 3.5 - 5.2 g/dL 12/10/2013 11:34 AM EDT [facility] Albumin/Globuli n Ratio 1.8 1.7 - 2.5 12/10/2013 11:34 AM EDT [facility] GFR Non- >60 >60 mL/min 12/10/2013 11:34 AM EDT [facility] GFR >60 >60 mL/min 12/10/2013 [facility] Comment 12/10/2013 11:34 AM EDT [facility] Comment: Average GFR for 30-39 years old: 107 mL/min/1.73sq m Chronic Kidney Disease: <60 mL/min/1.73sq m Kidney failure: <15 mL/min/1.73sq m GFR Staging 12/10/2013 11:34 AM EDT [facility] Comment: Stage 1: Some kidney damage normal GFR Stage 2: Mild kidney damage GFR 60-89 Stage 3: Moderate kidney damage GFR 30-59 Stage 4: Severe kidney damage GFR 15-29 Stage 5: Severe kidney damage GFR <15 ESRD - chronic treatment by dialysis or transplant Performed at [address] [place] [address] ([phone] BLOOD SPECIMEN / Unknown 12/10/2013 10:40 AM EDT 12/10/2013 10:41 AM EDT us Leilani Lomas DO CHEMISTRY ORDERABLES Final Re sult [facility] [address] [place] [address], [facility] [phone] [facility] * (ABNORMAL) CBC auto differential (12/10/2013 10:40 AM EDT) WBC 6.8 3.5 - 11.0 k/uL 12/10/2013 10:59 AM EDT [facility] RBC 4.90 4.0 - 5.2 m/uL 12/10/2013 10:59 AM EDT [facility] Hemoglobin 15.2 12.0 - 16.0 g/dL 12/10/2013 10:59 AM EDT [facility] Hematocrit 45.3 36 - 46 % 12/10/2013 10:59 AM EDT [facility] MCV 92.4 80 - 100 fL 12/10/2013 10:59 AM EDT [facility] MCH 31.1 26 - 34 pg 12/10/2013 10:59 AM EDT [facility] MCHC 33.6 31 - 37 g/dL 12/10/2013 10:59 AM EDT [facility] RDW 12.7 12.1 - 15.2 % 12/10/2013 10:59 AM EDT [facility] Comment:NOTE: NEW REFERENCE RANGE Platelets 169 140 - 450 k/uL 12/10/2013 10:59 AM EDT [facility] MPV NOT REPORTED 6.0 - 12.0 fL [facility] Differential Type NOT REPORTED [facility] Seg Neutrophils 67(H) 36 - 66 % 4 10:59 AM EDT [facility] Lymphocytes 24 24 - 44 % 12/10/2013 10:59 AM EDT [facility] Monocytes % 7 0 - 12 % 12/10/2013 10:59 AM EDT [facility] Eosinophils % 1 0 - 8 % 12/10/2013 10:59 AM EDT [facility] Basophils % 1 0 - 2 % 12/10/2013 10:59 AM EDT [facility] Neutrophils Absolute 4.60 1.8 - 7.7 k/uL 12/10/2013 10:59 AM EDT [facility] Lymphocytes Absolute 1.60 1.0 - 4.8 k/uL 12/10/2013 10:59 AM EDT [facility] Monocytes Absolute 0.50 0.0 - 1.0 k/uL 12/10/2013 10:59 AM EDT [facility] Eosinophils Absolute 0.10 0.0 - 0.4 k/uL 12/10/2013 10:59 AM EDT [facility] Basophils Absolute 0.00 0.0 - 0.2 k/uL 12/10/2013 10:59 AM EDT [facility] Comment: Performed at [address] [place] [address] ([phone] WBC Morphology NOT REPORTED [facility] RBC Morphology NOT REPORTED [facility] Platelet Estimate NOT REPORTED [facility] BLOOD SPECIMEN / Unknown 12/10/2013 10:40 AM EDT 12/10/2013 10:41 AM EDT us Leilani Lomas DO HEMATOLOGY ORDERABLES Final R esult [facility] [address] [place] [address], [facility] [phone] [facility] * (ABNORMAL) Microscopic Urinalysis (12/10/2013 10:24 AM EDT) [facility] - 12/10/2013 1:01 PM EDT [facility] WBC, UA 0 TO 2 0 - 5 /HPF 12/10/2013 1:01 PM EDT [facility] RBC, UA None 0 - 2 /HPF 12/10/2013 1:01 PM EDT [facility] Casts UA NOT REPORTED 0 - 2 /LPF [facility] Crystals, UA NOT REPORTED NONE /HPF [facility] Epithelial Cells, UA 2 TO 5 0 - 25 /HPF 12/10/2013 1:01 PM EDT [facility] Renal Epithelial, UA NOT REPORTED 0 /HPF [facility] Bacteria, UA TRACE(A) NONE 12/10/2013 1:01 PM EDT [facility] Comment: Performed at [address] [place] [address] ([phone] Mucus, UA NOT REPORTED NONE [facility] Trichomonas NOT REPORTED NONE [facility] Amorphous, UA NOT REPORTED NONE [facility] Other Observations UA NOT REPORTED NREQ [facility] Yeast, UA NOT REPORTED NONE [facility] 12/10/2013 10:2 4 AM EDT 12/10/2013 10:25 AM EDT Leilani Lomas DO URINE ORDERABLES Final Result [facility] [address] [place], [place] [id number], [facility] [phone] [facility] * (ABNORMAL) UA W/REFLEX CULTURE (12/10/2013 10:24 AM EDT) Color, UA PALE YELLOW YEL 12/10/2013 1:01 PM EDT [facility] Turbidity UA CLEAR CLEAR 12/10/2013 1:01 PM EDT [facility] Glucose, Ur NEGATIVE NEG 12/10/2013 1:01 PM EDT [facility] Bilirubin Urine NEGATIVE NEG 12/10/2013 1:01 PM EDT [facility] Ketones, Urine NEGATIVE NEG 12/10/2013 1:01 PM EDT [facility] Specific [place], UA 1.015 1.010 - 1.020 12/10/2013 1:01 PM EDT [facility] Urine Hgb TRACE(A) NEG 12/10/2013 1:01 PM EDT [facility] pH, UA 7.5 5.0 - 9.0 12/10/2013 1:01 PM EDT [facility] Protein, UA NEGATIVE NEG 12/10/2013 1:01 PM EDT [facility] Urobilinogen, Urine Normal NORM 12/10/2013 1:01 PM EDT [facility] Nitrite, Urine NEGATIVE NEG 12/10/2013 1:01 PM EDT [facility] Leukocyte Esterase, Urine NEGATIVE NEG 12/10/2013 1:01 PM EDT [facility] Comment: Performed at [address] [place] [address] ([phone] Urinalysis Comments NOT REPORTED [facility] Urine 12/10/2013 10:2 4 AM EDT 12/10/2013 10:25 AM EDT Leilani Lomas DO URINE ORDERABLES Final Result [facility] [address] [place], [place] [address] [phone] [facility] documented in this encounter Visit Diagnoses Not on filedocumented in this encounter Care Teams Assistant Attorney General Relationship Specialty Start Date End Date Jason Valderrama MD [address] [place] [address] PCP - General 12/03/13 02/23/16 documented as of this encounter
--- OUTSIDE RECORDS SUMMARY | 2016-03-03 09:15 | XMS_ITS | Encounter Summary ---
Author Organization [facility] Address [address], [address] [place] [address] Care Team Providers Care Cigar Head Puncher Name Role Phone Shlomo Dominique MD Primary Care Provider [phone] Encounter Details Date Type Department Care Team (Late st Contact Info) Description 03/03/2016 9:15 AM EDT Hospital Encounter [facility] Physical Therapy [address] [place], [place] [phone] Amara Martini, Shlomo Ac MD [address] [place] [address] Social History Tobacco Use Types Packs/Day Years [...] on file documented as of this encounter Progress Notes * Amara Martini PTA - 03/03/2016 9:53 AM EDT [facility] Outpatient Physical Therapy Daily Note Patient: Ruthie Guerrero : 1975 Referring Practitioner: Dr. Shlomo Dominique Referral Date : 02/08/16 Date: 03/03/2016 Referring Practitioner: Dr. 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 Treatment Diagnosis: low back pain Onset Date: 02/08/16 PT Insurance Information: [facility] Total # of Visits Approved: 18 Per Physician Order Total # of Visits to Date: 2 No Show: 0 Canceled Appointment: 0 Pre-Treatment Pain: 01/13 Subjective: Pt reports she does not sleep well at night, negotiates steps slowly due to falls Exercises/Modalities/Manual: See DocFlow Sheet Assessment Assessment: pt negotiated pool steps with 2 hand rails, reciprocally, completed aquatics without increase in pain or symptoms, LBP decreased during tx Plan Plan: Continue with current plan Goals (Total # of Visits to Date: 2) Short Term Goals - Time Frame for Short term goals: 3 weeks Short term goal 1: Pt to be instructed in home program. -met [x]Met []Partially met []Not met Short term goal 2: Pt to be initiated in aquatic based core strengthening program. -met (03-03-16) [x]Met []Partially met []Not met Short term goal 3: Pt to maintain supine double leg lift for 5 seconds indicating improved core strength. []Met []Partially met []Not met []Met []Partially met []Not met Senior Living Goals - Time Frame for intermodal owner operator truck driver goals : 6 weeks intermodal owner operator truck driver goal 1: Pt to report independence and compliance with home program. intermodal owner operator truck driver goal 2: Pt to maintain supine double leg lift for 25 seconds indicating improved core strength. [facility] goal 3: Pt to report decrease shooting pain in LE's by 50% throughout the day. Post Treatment Pain: 11/13 Time In: 0915 Time Out: 1000 Timed Code Treatment Minutes: 45 Minutes Total Treatment Time: 45 Minutes Amara Martini Therapy License Number: [employer] [id number] Date: 03/03/2016 Cosigned by Nelia Rivera PT at 03/08/2016 2:45 PM EDT documented in this encounter Plan of Treatment Not on file documented as of this encounter Goals Goal Patient Goal Type Associated Problems Recent Progress Patient-Stated? Author To get referred to a neurologist. Lifestyle On track( 013 3:14 PM EDT) No Arline Watt Quit smoking. Lifestyle Not on track( 013 8:57 AM EDT) No Arline Watt Quit smoking. Lifestyle No Arline Watt documented as of this encounter Visit Diagnoses Not on filedocumented in this encounter Care Teams Cigar Head Puncher Relationship Specialty Start Date End Date Shlomo Dominique MD [address] [place] [address] PCP - General 02/24/16 03/07/16 documented as of this encounter
--- OUTSIDE RECORDS SUMMARY | 2016-03-27 12:30 | XMS_ITS | Encounter Summary ---
Author Organization [facility] Address [address], [address] [place] [address] Care Team Providers Care Kettle Cleaner Name Role Phone Angeli Almendarez MD Primary Care Provider [phone] Encounter Details Date Type Department Care Team (Late st Contact Info) Description 03/27/2016 12:30 PM EDT Hospital Encounter [facility] [address] [place], [place] [id number] Amara Martini, Shlomo Ac MD [address] [place] [address] Social History Tobacco Use Types [...] Rivera, PT - 05/05/2016 3:35 PM EDT [facility] Outpatient Physical Therapy Discharge Summary Patient: Ruthie [...] was going to continue her PT in [place], [place] since she was going there every [...] for 5 seconds indicating improved core strength. long-term goals Time Frame for brake adjuster goals : 6 weeks brake adjuster goal 1: Pt to report independence and compliance with home program.--met long-term goal 2: Pt to maintain supine double leg lift for 25 seconds indicating improved core strength. brake adjuster goal 3: Pt to report decrease shooting pain in LE's by 50% throughout the day. 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 brake adjuster goal 3: Pt to report decrease shooting pain in LE's by 50% throughout the day. -progressing Post Treatment Pain: 10 Time In: 1230 Time Out: 1315 Timed Code Treatment Minutes: 45 Minutes Total Treatment Time: 45 Minutes Amara A Martini Therapy License Number: [id number] Date: 03/27/2016 Cosigned by Nelia Rivera PT [...] on filedocumented in this encounter Care Teams Kettle Cleaner Relationship Specialty Start Date End Date Angeli Almendarez MD [address] [place] [phone] PCP - General 03/08/16 documented as of this encounter
--- OUTSIDE RECORDS SUMMARY | 2016-03-31 10:45 | XMS_ITS | Encounter Summary ---
Author Organization [facility] Address [address], [address] [place] [address] Care Team Providers Care Order Runner Name Role Phone Angeli Almendarez MD Primary Care Provider [phone] Encounter Details Date Type Department Care Team (Late st Contact Info) Description 03/31/2016 10:45 AM EDT Hospital Encounter [facility] [address] [place], [place] [phone] Amara Martini, Shlomo Ac MD [address] [place] [address] Social History Tobacco Use Types [...] Progress Notes * Amara Martini PTA - 03/31/2016 11:25 AM EDT [facility] Outpatient Physical Therapy Daily Note Patient: Ruthie Guerrero : 1975 Referring Practitioner: Dr. Shlomo Dominique Referral Date : 02/08/16 Date: 03/31/2016 Referring Practitioner: Dr. 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 Treatment Diagnosis: low back pain Onset Date: 02/08/16 PT Insurance Information: Caresourse Total # of Visits Approved: 18 Per Physician Order Total # of Visits to Date: 8 No Show: 0 Canceled Appointment: 1 Pre-Treatment Pain: 10 Subjective: Reports (R) hip has not been hurting as much but when hip isnt back is, around T12 Exercises/Modalities/Manual: See DocFlow Sheet Assessment Assessment: pain continues to shoot down front of (R) leg but not constant, negotiated pool steps with 1 hand rail reciprocal, maintained (D) leg lift for 3 seconds Plan Plan: Continue with current plan Goals (Total # of Visits to Date: 8) Short Term Goals - Time Frame for [...] []Not met []Met []Partially met []Not met Penitentiary Goals - Time Frame for client success director goals : 6 weeks client success director goal 1: Pt to report independence and compliance with home program.--met client success director goal 2: Pt to maintain supine double leg lift for 25 seconds indicating improved core strength. [facility] goal 3: Pt to report decrease shooting pain in LE's by 50% throughout the day. -progressing Post Treatment Pain: 01/13 Time In: 1045 Time Out: 1130 Timed Code Treatment Minutes: 45 Minutes Total Treatment Time: 45 Minutes Amara Martini Therapy License Number: [id number] Date: 03/31/2016 Cosigned by Nelia Rivera PT at 04/06/2016 1:51 PM EDT documented in this encounter Plan [...] on filedocumented in this encounter Care Teams Order Runner Relationship Specialty Start Date End Date Angeli Almendarez MD [address] [place] [phone] PCP - General 03/08/16 documented as of this encounter
--- OUTSIDE RECORDS SUMMARY | 2024-01-29 04:00 | XMS_ITS ---
Author Organization The [facility] in [place] Address [address] [place] [address] Care Team Providers Care Supervisor Speech Name Role Phone Abhishek Gutierrez DO Primary Care Provider Unavail Rachel Chavez Unavailable [phone] REASON FOR VISIT MD Encounters Encounter Location Date Provider Diagnosis [facility] [address] [place] [address] 01/29/2024 Rachel Mcintosh Plan Of Treatment Next Appt Details Provider Name:Rachel Mcintosh , 04/14/2025 11:15:00 AM, [address] [place], [address], Progress Notes * Ruthie GUERRERO TDOB:[birth year] (49 yo F)Acc No.[id number]:01/29/2024 UNLOCKED PROGRESS NOTE Progress Notes Patient: Ruthie GUTIERREZ Provider: Leticia Mcintosh M.D. :1975 A ge:48 Y S ex:Female Date:01/29/2024 Address:[address] [place], [place] [id number] Pcp:Abhishek Gutierrez DO Subjective: * Chief Complaints: * 1 . MD. * Medical History: Objective: * Vitals: Assessment: Plan: * Treatment: * * Electronic signature of Beulah Mcintosh MD, [id number] on 03/09/2025 at 03:08 PM EDT Sign off status: Pending Visit Status: C [facility] (Voice) * Provider: Leticia Mcintosh M.D. Date: 0 01/29/2024 Generated for Jeff freedman/Diony/Xaviitting on: 0 03/09/2025 03:08 PM EDJluis
--- OUTSIDE RECORDS SUMMARY | 2024-04-11 07:00 | XMS_ITS ---
[facility] Organization [facility] Address [address] [place] [address] Care Team Providers Care Assistant Manager Retail Name Role Phone Silvestre Banda Primary Care Provider [phone] REASON FOR VISIT 2 week f/u Encounters Encounter Location Date Provider Diagnosis [place] [address] [facility] [place] [address] 2023 Silvestre Banda Plan Of Treatment No Information Progress Notes * DIAMOND MONTGOMERYDOB:1975 (49 yo F)Acc No.[id number]:04/11/2024 F/U - Patient Patient: DIAMOND GUTIERREZ Provider: LUIS [place] :1975 A ge:48 Y S ex:Female Date:04/11/2024 Address:[address] [place], [place] [phone] Subjective: * Chief Complaints: * 1 . BH 2 week f/u. Objective: Therapeutic Interventions: Assessment: Plan: * Images: Care Plan Details* * Electronic signature of LUIS Oneal ph on 03/09/2025 at 03:07 PM EDT Sign off status: Pending * Provider: LUIS Dover Date: 0 04/11/2024 Generated for Jeff ng/Facirog/eTransmitting on: 0 03/09/2025 03:07 PM EDT
--- OUTSIDE RECORDS SUMMARY | 2024-06-03 04:30 | XMS_ITS ---
Author Organization The [facility] in [place] Address [address] [place] [address] Care Team Providers Care Laminating Machine Offbearer Name Role Phone Abhishek Gutierrez DO Primary Care Provider Unavail Rachel Chavez Unavailable [phone] REASON FOR VISIT MD Encounters Encounter Location Date Provider Diagnosis [facility] [address] [place] [address] 06/03/2024 Rachel Mcintosh Plan Of Treatment Next Appt Details Provider Name:Rachel Mcintosh , 04/14/2025 11:15:00 AM, [address] [place], [address], Progress Notes * Ruthie GUERRERO TDOB:[birth year] (49 yo F)Acc No.[id number]:06/03/2024 UNLOCKED PROGRESS NOTE Progress Notes Patient: Ruthie GUTIERREZ Provider: Leticia Mcintosh M.D. :1975 A ge:48 Y S ex:Female Date:06/03/2024 Address:[address] [place], [place] [phone] Pcp:Abhishek Gutierrez DO Subjective: * Chief Complaints: * 1 . MD. * Medical History: Objective: * Vitals: Assessment: Plan: * Treatment: * * Electronic signature of Beulah Mcintosh MD, [id number] on 03/09/2025 at 03:08 PM EDT Sign off status: Pending Visit Status: A [facility] (Voice) * Provider: Leticia Mcintosh M.D. Date: 1 Generated for Jeff freedman/Diony/Pérez on: 0 03/09/2025 03:08 PM EDT
--- OUTSIDE RECORDS SUMMARY | 2024-10-14 07:00 | XMS_ITS ---
Author Organization The [facility] in [place] Address [address] [place] [address] Care Team Providers Care International Trade Compliance Manager Name Role Phone Abhishek Gutierrez DO Primary Care Provider Unavail Rachel Chavez Unavailable [phone] REASON FOR VISIT MD Encounters Encounter Location Date Provider Diagnosis [facility] [address] [place] [address] 10/14/2024 Rachel Mcintosh Plan Of Treatment Next Appt Details Provider Name:Rachel Mcintosh , 04/14/2025 11:15:00 AM, [address] [place], [address], Progress Notes * Ruthie GUERRERO TDOB:[birth year] (49 yo F)Acc No.[id number]:10/14/2024 UNLOCKED PROGRESS NOTE Progress Notes Patient: Ruthie GUTIERREZ Provider: Leticia Mcintosh M.D. :1975 A ge:49 Y S ex:Female Date:10/14/2024 Address:[address] [place], [place] [phone] Pcp:Abhishek Gutierrez DO Subjective: * Chief Complaints: * 1 . MD. * Medical History: Objective: * Vitals: Assessment: Plan: * Treatment: * * Electronic signature of Beulah Mcintosh MD, [id number] on 03/09/2025 at 03:08 PM EDT Sign off status: Pending Visit Status: A [facility] (Voice) * Provider: Leticia Mcintosh M.D. Date: 0 10/14/2024 Generated for Jeff freedman/Diony/Pérez on: 0 03/09/2025 03:08 PM EDT
--- OUTSIDE RECORDS SUMMARY | 2025-03-09 15:07 | XMS_ITS | Encounter Summary ---
Author Organization [facility] Address [address] [place] [address] Care Team Providers Care Quality Technician Fiberglass Name Role Phone Jason Valderrama MD Primary Care Provid er Source Comments In the event this information is protected by the Federal Confidentiality of Alcohol and Drug AbusePatient Records regulations: The Federal rules restrict any use of the information to criminally investigate or prosecute any alcohol or drug abuse patient.[facility] Encounter Details Date Type Department Care Team (Late st Contact Info) Description 06/09/2014 Patient Msg Medical Records [address] [place] [address] Provider, Ccf test results Social History Tobacco Use Types Packs/Day Years Used Date Smoking Tobacco: Every Day Cigarettes 1 24 Smokeless Tobacco: Never Alcohol Use Standard Drinks/Week Comments Yes 0 (1 standard drink = 0.6 oz pure alcohol) poor tolerance since 2011 therefore uses minimally 1-2 times a year, prior social use Comments Unknown Sex and Gender Information Value Date Recorded Sex Assigned at Not on file Legal Sex Female 10:13 AM EST Gender Identity Not on file Sexual Orientation Not on file 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 Answer Date of Assessment Author No 03/02/2014 2:42 PM EDT Lilly Rodriguez Ma * Are you blind or do you have serious difficulty seeing, even when wearing glasses? Answer Date of Assessment Author No 03/02/2014 2:42 PM EDT Lilly Rodriguez Ma * Do you have serious difficulty walking or climbing stairs? Answer Date of Assessment Author Yes 03/02/2014 2:42 PM EDT Lilly Rodriguez Ma * Do you have difficulty dressing or bathing? Answer Date of Assessment Author No 03/02/2014 2:42 PM EDT Lilly Rodriguez Ma * Because of a physical, mental, or emotional condition, do you have difficulty doing errands alone such as visiting a doctor's office or shopping? Answer Date of Assessment Author No 03/02/2014 2:42 PM EDT Lilly Rodriguez Ma documented as of this encounter Mental Status * Because of a physical, mental, or emotional condition, do you have serious difficulty concentrating, remembering, or making decisions? Answer Entry Date Author No 03/02/2014 2:42 PM EDT Lilly Rodriguez Ma documented in this encounter Plan of Treatment Not on file documented as of this encounter Visit Diagnoses Not on filedocumented in this encounter Care Teams Quality Technician Fiberglass Relationship Specialty Start Date End Date Jason Valderrama MD [address] [place] [address] [phone] PCP - General Internal Medicine 04/27/14 documented as of this encounter
--- OUTSIDE RECORDS SUMMARY | 2025-03-09 15:08 | XMS_ITS | Encounter Summary ---
Author Organization [facility] Address [address] [place] [address] Care Team Providers Care Permastone Installer Name Role Phone Jason Valderrama MD Primary Care Provid er Source Comments In the event this information is protected by the Federal Confidentiality of Alcohol and Drug AbusePatient Records regulations: The Federal rules restrict any use of the information to criminally investigate or prosecute any alcohol or drug abuse patient.[facility] Encounter Details Date Type Department Care Team (Late st Contact Info) Description 06/04/2015 Get Medical Advice Spine [place] [address] [place] [address] Jaiden Paris MD [address] [place] [address] RE: Non-Urgent Medical Question Social History Tobacco Use Types Packs/Day Years Used Date Smoking Tobacco: Every Day Cigarettes 1 24 Smokeless Tobacco: Never Alcohol Use Standard Drinks/Week Comments Yes 0 (1 standard drink = 0.6 oz pure alcohol) poor tolerance since 2011 therefore uses minimally 1-2 times a year, prior social use Comments No Sex and Gender Information Value [...] hearing? Answer Date of Assessment Author No 01/22/2015 4:01 PM EDT Giovanna Alanis Ma * Are you blind or do you have serious difficulty seeing, even when wearing glasses? Answer Date of Assessment Author No 01/22/2015 4:01 PM EDT Giovanna Alanis Ma * Do you have serious difficulty walking or climbing stairs? Answer Date of Assessment Author No 01/22/2015 4:01 PM Giovanna Centeno Ma * Do you have difficulty dressing or bathing? Answer Date of Assessment Author No 01/22/2015 4:01 PM EDT Giovanna Alanis Ma * Because of a physical, mental, or emotional condition, do you have difficulty doing errands alone such as visiting a doctor's office or shopping? Answer Date of Assessment Author No 01/22/2015 4:01 PM EDT Giovanna Alanis Ma documented as of this encounter Mental Status * Because of a physical, mental, or emotional condition, do you have serious difficulty concentrating, remembering, or making decisions? Answer Entry Date Author No 01/22/2015 4:01 PM Giovanna Centeno Ma documented in this encounter Plan of Treatment Not on file documented as of this encounter Visit Diagnoses Not on filedocumented in this encounter Care Teams Permastone Installer Relationship Specialty Start Date End Date Jason Valderrama MD [address] [place] [address] [phone] PCP - General Internal Medicine 04/27/14 documented as of this encounter
--- OUTSIDE RECORDS SUMMARY | 2025-03-09 15:08 | XMS_ITS | Clinical Summary ---
Author Organization [facility] Address [address] [place] [address] Care Team Providers Care Metal Mockup Maker Name Role Phone Unavailable Primary Care Provider Unavailabl e Social History Tobacco Use Types Packs/Day Years Used Date Smoking Tobacco: Never Assessed Comments Unknown Sex and Gender Information Value Date Recorded Sex Assigned at Not on file Legal Sex Female 7:00 PM EDT Gender Identity Not on file Sexual Orientation Not on file Last Filed Vital Signs Vital Sign Reading Time Taken Comments Blood Pressure 134/84 08/03/2022 12:00 PM EST Pulse - - Temperature - - Respiratory Rate - - Oxygen Saturation - - Inhaled Oxygen Concentration - - Weight 96.8 kg (213 lb 6.4 oz) 08/03/2022 12:00 PM EST Height 175.3 cm (5' 9 ) 08/03/2022 12:00 PM EST Body Mass Index 31.51 08/03/2022 12:00 PM EST Plan of Treatment Not on file
--- OUTSIDE RECORDS SUMMARY | 2025-03-09 15:08 | XMS_ITS | Encounter Summary ---
Author Organization [facility] Address [address] [place] [address] Care Team Providers Care Telephone Sex Worker Name Role Phone Jason Valderrama MD Primary Care Provid er Source Comments In the event this information is protected by the Federal Confidentiality of Alcohol and Drug AbusePatient Records regulations: The Federal rules restrict any use of the information to criminally investigate or prosecute any alcohol or drug abuse patient.[facility] Encounter Details Date Type Department Care Team (Late st Contact Info) Description 11/10/2015 Get Medical Advice Rheumatology [address] [place] [phone] Steffi Farooq MD [facility] [place] [address] RE: Non-Urgent Medical Question Social [...] of Assessment Author No 01/22/2015 4:01 PM EDGiovanna Torres Ma * Because of a physical, mental, or emotional condition, do you have difficulty doing errands alone such as visiting a doctor's office or shopping? Answer Date of Assessment Author No 01/22/2015 4:01 PM EDGiovanna Torres Ma documented as of this encounter Mental Status * Because of a physical, mental, or emotional condition, do you have serious difficulty concentrating, remembering, or making decisions? Answer Entry Date Author No 01/22/2015 4:01 PM Giovanna Centeno Ma documented in this encounter Plan of Treatment Not on file documented as of this encounter Visit Diagnoses Not on filedocumented in this encounter Care Teams Telephone Sex Worker Relationship Specialty Start Date End Date Jason Valderrama MD [address] [place] [phone] PCP - General Internal Medicine 04/27/14 documented as of this encounter
--- OUTSIDE RECORDS SUMMARY | 2025-03-09 15:08 | XMS_ITS | Encounter Summary ---
Author Organization [facility] Address [address] [place] [address] Care Team Providers Care Tool Setter Name Role Phone Jason Valderrama MD Primary Care Provid er Source Comments In the event this information is protected by the Federal Confidentiality of Alcohol and Drug AbusePatient Records regulations: The Federal rules restrict any use of the information to criminally investigate or prosecute any alcohol or drug abuse patient.[facility] Encounter Details Date Type Department Care Team (Late st Contact Info) Description 09/23/2015 Get Medical Advice Spine [place] [address] [place] [address] Jaiden Paris MD [address] [place] [address] RE: Non-Urgent Medical Question Social [...] on filedocumented in this encounter Care Teams Tool Setter Relationship Specialty Start Date End Date Jason Valderrama MD [address] [place] [phone] PCP - General Internal Medicine 04/27/14 documented as of this encounter
--- OUTSIDE RECORDS SUMMARY | 2025-03-09 15:08 | XMS_ITS | Clinical Summary ---
Author Organization [facility] Address [address] [place] [address] Care Team Providers Care Pediatric Dietician Name Role Phone Jason Valderrama MD Primary Care Provid er Allergies Active Allergy Reactions Criticality Noted Date Comments Chlorhexidine Towelette Other: See Comments Burning - Codeine Itching Low 11/13/2013 Latex Rash,Itching Low 03/02/2014 Medications pregabalin (LYRICA) 75 mg capsule Take 1 capsule by mouth twice daily. 28 capsule 0 09/23/2015 Active FLUoxetine (PROZAC) 20 mg capsule Take 20 mg by mouth once daily. Active DIAZEPAM ORAL Take by mouth. Active cetirizine (ZYRTEC) 10 mg tablet Take 10 mg by mouth once daily. Active Active Problems Problem Noted Date Diagnosed Date Pain in thoracic spine 03/25/2015 Fibromyalgia 03/25/2015 Family History Medical History Relation Comments Cancer Father bladder and pros patel Thyroid Father hyper Thyroid Maternal Aunt Cancer Maternal Grandfather NHL Breast Cancer Maternal Grandmother Arthritis Mother Diabetes Mother Hypertension Mother Cancer Other thyroid, paterna l great-aunt Heart Paternal Grandfather Cancer Paternal Grandmother NHL Relation Status Comments Father Maternal Aunt Maternal Grandfather Maternal Grandmother Mother Other Paternal Grandfather Paternal Grandmother Social History Tobacco Use Types Packs/Day Years Used Date Smoking Tobacco: Every Day Cigarettes 1 24 Smokeless Tobacco: Never Tobacco Cessation:Ready to Q uit: Yes; Counseling Given: Yes Alcohol Use Standard Drinks/Week Comments Yes 0 [...] Not on file Not o n file Last Filed Vital Signs Vital Sign Reading Time Taken Comments Blood Pressure 131/82 02/08/2016 8:48 AM EDT Pulse 84 02/08/2016 8:48 AM EDT Temperature 36.7 C (98.1 F) 06/03/2015 10:04 AM EDT Respiratory Rate 20 06/28/2015 12:22 PM EST Oxygen Saturation 94% 06/28/2015 12:22 PM EST room air Inhaled Oxygen Concentration - - Weight 104.3 kg (230 lb) 09/23/2015 8:06 AM EST Height 172.8 cm (5' 8.03 ) 09/23/2015 8:06 AM ES T Body Mass Index 34.94 09/23/2015 8:06 AM EST Plan of Treatment Health Maintenance Due Date Last Done Comments Anxiety Screening 1992 Depression Screening 1992 Hepatitis C Screening 1992 DTaP,Tdap,Td Vaccine (1 - Tdap) 1993 Hepatitis B Vaccine (1 of 3 - 19+ 3-dose series) 1993 Cervical Cancer Screening [address] Colonography 2019 Cologuard (FIT-DNA) 2019 Colonoscopy 2019 Colorectal Cancer Screening 2019 Diabetes Screening 2019 09/08/2014, 03/02/2014 Fecal Occult Blood 2019 Lipid Screening 2019 Sigmoidoscopy 2019 Pneumococcal Vaccine: 50+ (1 of 1 - PCV) 2024 Shingrix Vaccine (1 of 2) 2024 Influenza Vaccine (#1) 2025 HIV Screening Completed 03/02/2014 Procedures Procedure Name Priority Date/Time Associated Diagnosis Comments COMPREHENSIVE METABOLIC PANEL Routine 09/08/2014 8:38 AM EST Monoclonal gammopathy HIV 1/2 COMBO WITH REFLEX TO DIFFERENTIATION Routine 03/02/2014 11:31 AM EDT Skin sensation disturbance from Last 3 Months or Most Recently Relevant to Health Maintenance Results * (ABNORMAL) COMP METABOLIC PANEL (09/08/2014 8:38 AM EST) Protein, Total 7.2 6.0 - 8.4 g/dL [facility] Albumin 4.3 3.5 - 5.0 g/dL [facility] Calcium 9.2 8.5 - 10.5 mg/dL [facility] Bilirubin, Total 0.4 0.0 - 1.5 mg/dL [facility] Alkaline Phosphatase 69 40 - 150 U/L [facility] AST 22 7 - 40 U/L [facility] Glucose 78 65 - 100 mg/dL [facility] BUN 12 8 - 25 mg/dL [facility] Creatinine 0.65(L) 0.70 - 1.40 mg/dL [facility] Sodium 142 132 - 148 mmol/L [facility] Potassium 3.7 3.5 - 5.0 mmol/L [facility] Chloride 105 98 - 110 mmol/L [facility] CO2 23 23 - 32 mmol/L [facility] Anion Gap 14 0 - 15 mmol/L [facility] ALT 19 0 - 45 U/L [facility] eGFR- >60 [facility] eGFR-All Other Races >60 . [facility] Comment: eGFR (Estimated GFR) Units of measure: mL/min/1.73 meters squared eGFR is derived from the reexpressed MDRD Study equation using the following parameters: serum creatinine, age, gender and race. The creatinine assay has been calibrated to be traceable to IDMS. An eGFR <60 mL/min/1.73m2 for >3 months is consistent with chronic kidney disease. Refer to KDOQI guidelines for clinical interpretation. In patients with unstable renal function, e.g. those with acute kidney injury, the eGFR may not accurately reflect actual GFR. Blood specimen (specimen) BLOOD SPECIMEN / Unknown 09/08/2014 8:38 AM EST 09/08/2014 8:43 AM EST us Junior Mancilla MD LABORATORY Final Result [facility] [address] [place] [address] * HIV AB 1&2 SCREEN (03/02/2014 11:31 AM EDT) HIV 1 & 2 Ab (EIA) Non Reactive NR [facility] Comment: If results are indeterminate or otherwise inconsistent with an individual's clinical presentation or risk profile for HIV infection a repeat specimen is requested. A repeat specimen is also recommended for any individual identified positive for the first time. (NOTE) HIV Information: [place] Rev. Code 3701.243(E): This information has been disclosed to you from confidential records protected from disclosure by state law. You shall make no further disclosure of this information without the specific, written, and informed release of the individual to whom it pertains, or as otherwise permitted by state law. A general authorization for the release of medical or other information is not sufficient for the purpose of the release of HIV test results or diagnoses. Blood specimen (specimen) BLOOD SPECIMEN / Unknown 03/02/2014 11:31 AM EDT 03/02/2014 11:34 AM EDT us Rosa Davis MD LABORATORY Final Resu lt [facility] [address] [place] [address] from Last 3 Months or Most Recently Relevant to Health Maintenance Insurance [address] [place] [address] [facility] MEDICAID Care Teams Pediatric Dietician Relationship Specialty Start Date End Date Jason Valderrama MD [address] [place] [phone] PCP - General Internal Medicine 04/27/14
--- OUTSIDE RECORDS SUMMARY | 2025-03-09 15:08 | XMS_ITS | Encounter Summary ---
Author Organization [facility] Address [address] [place] [address] Care Team Providers Care Cardiovascular Rn Name Role Phone Josephine Srinivasan MD Primary Care Provider [phone] Jason Valderrama MD Primary Care Provid er Source Comments In the event this information is protected by the Federal Confidentiality of Alcohol and Drug AbusePatient Records regulations: The Federal rules restrict any use of the information to criminally investigate or prosecute any alcohol or drug abuse patient.[facility] Encounter Details Date Type Department Care Team (Late st Contact Info) Description 03/09/2014 Patient Msg Medical Records [address] [place] [address] Provider, Ccf test results Social History Tobacco [...] on filedocumented in this encounter Care Teams Cardiovascular Rn Relationship Specialty Start Date End Date Josephine Srinivasan MD [address] [place] [address] PCP - General Family Medicine 08/30/11 04/26/14 Jason Valderrama MD [address] [place] [phone] PCP - General Internal Medicine 04/27/14 documented as of this encounter
--- OUTSIDE RECORDS SUMMARY | 2025-03-09 15:08 | XMS_ITS | Encounter Summary ---
Author Organization [facility] Address [address] [place] [address] Care Team Providers Care Housekeeping Coordinator Name Role Phone Jason Valderrama MD Primary Care Provid er Source Comments In the event this information is protected by the Federal Confidentiality of Alcohol and Drug AbusePatient Records regulations: The Federal rules restrict any use of the information to criminally investigate or prosecute any alcohol or drug abuse patient.[facility] Encounter Details Date Type Department Care Team (Late st Contact Info) Description 09/23/2015 Get Medical Advice Rheumatology [address] [place] [phone] Steffi Farooq MD [facility] [place] [address] RE: Non-Urgent Medical Question Social [...] on filedocumented in this encounter Care Teams Housekeeping Coordinator Relationship Specialty Start Date End Date Jason Valderrama MD [address] [place] [phone] PCP - General Internal Medicine 04/27/14 documented as of this encounter
--- OUTSIDE RECORDS SUMMARY | 2025-03-09 15:08 | XMS_ITS | Encounter Summary ---
Author Organization [facility] Address [address] [place] [address] Care Team Providers Care Security Operations Engineer Name Role Phone Jason Valderrama MD Primary Care Provid er Source Comments In the event this information is protected by the Federal Confidentiality of Alcohol and Drug AbusePatient Records regulations: The Federal rules restrict any use of the information to criminally investigate or prosecute any alcohol or drug abuse patient.[facility] Encounter Details Date Type Department Care Team (Late st Contact Info) Description 09/15/2015 Get Medical Advice Spine [place] [address] [place] [address] Jaiden Paris MD [address] [place] [address] Non-Urgent Medical Question Social History Tobacco Use [...] on filedocumented in this encounter Care Teams Security Operations Engineer Relationship Specialty Start Date End Date Jason Valderrama MD [address] [place] [phone] PCP - General Internal Medicine 04/27/14 documented as of this encounter
--- OUTSIDE RECORDS SUMMARY | 2025-03-09 15:08 | XMS_ITS | Patient Health Record ---
Author Organization [facility] in [place] Address [address] [place] [address] Care Team Providers Care Road Grader Operator Name Role Phone Bernice Gutierrez DO Primary Care Provider Unavail able Rachel Mcintosh Unavailable [phone] Results Component Value Reference Range Notes CBC AUTO DIFF (Not yet revie wed by provider) Interpretation: Performing Lab: Notes/Report: [facility] , White Blood Count 7.0 4.0-11.0 10 3/uL Red Blood Count 4.82 4.20-5.40 10 6/uL Hemoglobin 14.9 12.0-16.0 g/dL Hematocrit 43.3 36.0-48.0 % Mean Corpuscular Volume 89.8 81.0-99.0 fL Mean Corpuscular Hemoglobin 30.9 26.7-34.0 pg Mean Corpuscular HGB Conc 34.4 29.9-35.2 g/dL Red Cell Distribution Width 12.1 11.0-15.0 % Platelet Count 178 150-450 10 3/uL Mean Platelet Volume 11.2 9.5-13.5 fL Neutrophils Percent Auto 67.0 43.0-75.0 % Lymphocytes Percent Auto 20.8 20.5-60.0 % Monocytes Percent Auto 9.8 1.7-12.0 % Eosinophils Percent Auto 1.4 0.9-7.0 % Basophils Percent Auto 0.7 0.2-2.0 % Immature Granulocytes Pct Auto 0.3 0.0-0.5 % Neutrophils Absolute Auto 4.7 1.4-6.5 10 3/uL Lymphocytes Absolute Auto 1.5 1.2-3.8 10 3/uL Monocytes Absolute Auto 0.7 0.3-0.8 10 3/uL Eosinophils Absolute Auto 0.1 0.0-0.7 10 3/uL Basophils Absolute Auto 0.1 0.0-0.1 10 3/uL Immature Granulocytes Abs Auto 0.02 0.00-0.03 10 3/uL Performing Lab: see note ML - The [facility] LB PET skull to mid thigh (Not yet reviewed by provider) Interpretation: Performing Lab: Notes/Report: Source Facility: [facility]-[address] [place] [address] PET Report Signed Patient: DIAMOND GUERRERO MR#: [id number] : 1975 Acct:[id number] Age/Sex: 49 / F ADM Date: 11/17/24 Loc: PETCT Attending Dr: Rachel Mcintosh M.D. Ordering Physician: Rachel Mcintosh M.D. Date of Service: 11/17/24 Procedure(s): PET skull to mid thigh Accession Number(s): [id number] cc: Rachel Mcintosh M.D.; BERNICE GUTIERREZ [place] [address] Patient Name: DIAMOND GUERRERO MRN: [id number] date: 1975 Sex: F Assigned Patient Location: PETCT Current Patient Location: Accession/Order Number: [id number] Exam Date: 11/18/2024 08:52 Report Date: 11/18/2024 09:15 At the request of: RACHEL MCINTOSH MD Procedure: PET skull to mid thigh PET/CT WITH FUSION CLINICAL DATA: Chronic lymphocytic leukemia COMPARISON: None Following the intravenous administration of 10.17 mCi of FDG, SPECT imaging in 3 planes was performed from the level the orbits through the groin. The patient's blood glucose level at the time of injection was 80 mg/dL. Spiral unenhanced CT was also performed for anatomic localization. The PET and CT images were fused. This CT exam was performed using one or more following dose reduction techniques: Automated exposure control, adjustment of the mA and/or kV according to patient size, or use of iterative reconstruction technique. NECK: No enlarged or hypermetabolic cervical lymph nodes are present. There is mild physiologic activity at the oral cavity and vocal cords. CHEST: No enlarged or hypermetabolic mediastinal, hilar or axillary lymph nodes are identified. No pulmonary abnormalities are noted. Granulomatous changes are visualized. ABDOMEN/PELVIS: There is no abnormal hypermetabolism associated with the liver or adrenal glands. There are few small scattered abdominal lymph nodes which are not pathologically enlarged or hypermetabolic. No pathologic pelvic or inguinal adenopathy is seen. There is asymmetric increased FDG uptake (SUV 6.3) at the medullary portion of the proximal left femur of unknown etiology. There is physiologic activity involving the urinary tract and bowel. Diverticular disease is noted. There are splenic granulomas. PET/PET skull to mid thigh IMPRESSION: NO PATHOLOGIC ADENOPATHY. ASYMMETRIC INCREASED MEDULLARY UPTAKE AT THE PROXIMAL LEFT FEMUR, UNDETERMINED ETIOLOGY AND SIGNIFICANCE. Impression dictated by: Yuli Zamora M.D.11/18/2024 9:15 AM Dictation Location: [place] [address] Electronically authenticated by: [id number] Y Date: 11/18/2024 09:15 Dictated By: Yuli Zamora M.D. Signed By: 11/18/24 1417 DD/ 0915 TD/TT: Windows Desktop Support: [place] [address] PET Report Signed Patient: AANI GUERRERO MR#: [id number] : 1975 Acct:[id number] Age/Sex: 49 / F ADM Date: 11/17/24 Loc: PETCT Attending Dr: Keaton Mcintosh M.D. Ordering Physician: Rachel Mcintosh M.D. Date of Service: 11/17/24 Procedure(s): PET sk ull to mid thigh Accession Number(s): [id number] cc: Rachel Mcintosh; BERNICE GUTIERREZ [place] [id number] Patient Name: DIAMOND GUERRERO MRN: [id number] date: 1975 Sex: F Assigned Patient Location: PETCT Current Patient Location: Accession/Order Numb er: [id number] Exam Date: 11/18/2024 08:52 Report Date: 11/18/2024 09:15 At the request of: RACHEL MCINTOSH MD Procedure: PET skull to mid thigh PET/CT WITH FUSION CLINICAL DATA: Chron ic lymphocytic leukemia COMPARISON: None Following the intravenous administration of 10.17 mCi of FDG, SPECT imaging in 3 planes was perform ed from the level the orbits through the groin. The patient's blood gluc ose level at the time of injection was 80 mg/dL. Spiral unenhanced CT was al so performed for anatomic localization. The PET and CT images were fused. T his CT exam was performed using one or more following dose reduction techniques: Automated exposure control, adjustment of the mA and/or kV according to patient size, or use of iterative reconstruction technique. NECK: No enlarged or hypermetabolic cervical lymph nodes are present. There is mild physiologic activity at the oral cavity and vocal cords. CHEST: No enlarged o r hypermetabolic mediastinal, hilar or axillary lymph nodes are identified . No pulmonary abnormalities are noted. Granulomatous changes are visualized. ABDOMEN/PELVIS: Ther e is no abnormal hypermetabolism associated with the liver or adrenal glands. T here are few small scattered abdominal lymph nodes which are not pathological ly enlarged or hypermetabolic. No pathologic pelvic or inguinal adenopathy is seen. There is asymmetric increased FDG uptake (SUV 6.3) at the medullar y portion of the proximal left femur of unknown etiology. There is physiologic activity involving the urinary tract and bowel. Diverticular disease is noted. There are splenic granulomas. PET/PET skull to mid thigh IMPRESSION: NO PATHOLOGIC ADENOPATHY. ASYMMETRIC INCREASED MEDULLARY UPTAKE AT THE PROXIMAL LEFT FEMUR, UNDETERMINED ETIOLOGY AND SIGNIFICANCE. Impression dictated by: Yuli Zamora M.D.11/18/2024 9:15 AM Dictation Location: [place] [address] Electronically authenticated by: [id number] Y Date: 11/18/2024 09:15 Dictated By: Yuli Zamora M.D. Signed By: 11/18/24 1417 DD/ 0915 TD/TT: Windows Desktop Support: NM bone scan whole body (Not yet reviewed by provider) Interpretation: Performing Lab: Notes/Report: Source Facility: [place] [address] Nuclear Medicine Report Signed Patient: DIAMOND GUERRERO MR#: [id number] : 1975 Acct:[id number] Age/Sex: 49 / F ADM Date: 12/08/24 Loc: [place] Attending Dr: Rachel Mcintosh M.D. Ordering Physician: Rachel Mcintosh M.D. Date of Service: 12/08/24 Procedure(s): NM bone scan whole body Accession Number(s): [id number] cc: Rachel Mcintosh M.D.; BERNICE GUTIERREZ [place] [address] Patient Name: DIAMOND GUERRERO MRN: [id number] date: 1975 Sex: F Assigned Patient Location: AK Current Patient Location: AK Accession/Order Number: [id number] Exam Date: 12/08/2024 12:56 Report Date: 12/08/2024 12:57 At the request of: RACHEL MCINTOSH MD Procedure: AK bone scan whole body WHOLE-BODY BONE SCAN: CLINICAL HISTORY: NON-SPECIFIC BONE LESION, HX OF CLL, EVAL ARTHRITIS VS METS COMPARISON: Left femur series 12/08/2024 PET/CT 11/18/2024 TECHNIQUE: Following the intravenous administration of 24.3 mCi of technetium 99m labeled MDP, delayed minified views of the entire skeleton were obtained. FINDINGS: There is normal distribution of radionucleotide within the axial and appendicular skeleton. There are no focal areas of increased uptake or photopenia that are suspicious for metastatic disease specifically involving the left femur.. Activity involving the visualized joints likely degenerative in nature. NM/AK bone scan whole body IMPRESSION: NO EVIDENCE OF OSSEOUS METASTASIS SPECIFICALLY WITHIN THE LEFT FEMUR.. Impression dictated by: Silvestre Lizarraga Jr., D.O. 12/08/2024 12:57 PM Dictation Location: [place] [address] Electronically authenticated by: [id number] Y Date: 12/08/2024 12:57 Dictated By: Silvestre Lizarraga M.D. Signed By: 12/08/24 1259 DD/ 1257 TD/TT: Windows Desktop Support: [place] [address] Nuclear Medicine Report Signed Patient: ANAI GUERRERO MR#: [id number] : 1975 Acct:[id number] Age/Sex: 49 / F ADM Date: 12/08/24 Loc: [place] Attending Dr: Keaton Mcintosh M.D. Ordering Physician: Rachel Mcintosh M.D. Date of Service: 12/08/24 Procedure(s): AK bon e scan whole body Accession Number(s): [id number] cc: Rachel Mcintosh; BERNICE GUTIERREZ [place] [address] Patient Name: DIAMOND GUERRERO MRN: [id number] date: 1975 Sex: F Assigned Patient Location: AK Current Patient Location: AK Accession/Order Numb er: [id number] Exam Date: 12/08/2024 12:56 Report Date: 12/08/2024 12:57 At the request of: RACHEL MCINTOSH MD Procedure: NM bone s can whole body WHOLE-BODY BONE SCAN: CLINICAL HISTORY: NON-SPECIFIC BONE LESION, HX OF CLL, EVAL ARTHRITIS VS METS COMPARISON: Left fem ur series 12/08/2024 PET/CT 11/18/2024 TECHNIQUE: Following the intravenous administration of 24.3 mCi of technetium 99m labeled MDP, del ayed minified views of the entire skeleton were obtained. FINDINGS: There is normal distribution of radionucleotide within the axial and appendicular skeleto n. There are no focal areas of increased uptake or photopenia that are suspicious for metastatic disease specifically involving the left femur.. Activity involving the visualized joints likely degenerative in nature. N M/NM bone scan whole body IMPRESSION: NO EVIDENCE OF OSSEO US METASTASIS SPECIFICALLY WITHIN THE LEFT FEMUR.. Impression dictated by: Silvestre Lizarraga Jr., D.O. 12/08/2024 12:57 PM Dictation Location: [place] [address] Electronically authenticated by: [id number] Y Date: 12/08/2024 12:57 Dictated By: Silvestre Lizarraga M.D. Signed By: 12/08/24 1259 DD/ 1257 TD/TT: Windows Desktop Support: CBC AUTO DIFF (Not yet revie wed by provider) Interpretation: Performing Lab: Notes/Report: [facility] , White Blood Count 7.1 4.0-11.0 10 3/uL Red Blood Count 4.91 4.20-5.40 10 6/uL Hemoglobin 14.9 12.0-16.0 g/dL Hematocrit 44.4 36.0-48.0 % Mean Corpuscular Volume 90.4 81.0-99.0 fL Mean Corpuscular Hemoglobin 30.3 26.7-34.0 pg Mean Corpuscular HGB Conc 33.6 29.9-35.2 g/dL Red Cell Distribution Width 12.3 11.0-15.0 % Platelet Count 178 150-450 10 3/uL Mean Platelet Volume 11.5 9.5-13.5 fL Neutrophils Percent Auto 65.8 43.0-75.0 % Lymphocytes Percent Auto 23.6 20.5-60.0 % Monocytes Percent Auto 8.5 1.7-12.0 % Eosinophils Percent Auto 1.0 0.9-7.0 % Basophils Percent Auto 0.7 0.2-2.0 % Immature Granulocytes Pct Auto 0.4 0.0-0.5 % Neutrophils Absolute Auto 4.7 1.4-6.5 10 3/uL Lymphocytes Absolute Auto 1.7 1.2-3.8 10 3/uL Monocytes Absolute Auto 0.6 0.3-0.8 10 3/uL Eosinophils Absolute Auto 0.1 0.0-0.7 10 3/uL Basophils Absolute Auto 0.1 0.0-0.1 10 3/uL Immature Granulocytes Abs Auto 0.03 0.00-0.03 10 3/uL Performing Lab: see note ML - The [facility] LB URIC ACID SERUM (Not yet rev iewed by provider) Interpretation: Performing Lab: Notes/Report: [facility] , Uric Acid 3.4 2.6-6.0 mg/dL Performing Lab: see note ML - The [facility] LB PROF 14(COMP METB) (Not yet reviewed by provider) Interpretation: Performing Lab: Notes/Report: [facility] , Sodium 142 136-145 mmol/L Potassium 4.3 3.5-5.1 mmol/L Chloride 107 98-107 mmol/L Carbon Dioxide 24.5 21.0-32.0 mmol/L Anion Gap 14.8 Glucose 98 74-106 mg/dL Blood Urea Nitrogen 7.0 7.0-18.0 mg/dL Creatinine 0.68 0.55-1.02 mg/dL Estimated GFR ( Jamial >60 >=60 mL/min/1.73m 2 Estimated GFR (Non- Kimberlee >60 >=60 mL/min/1.73m 2 BUN Creatinine Ratio 10.3 Calcium 9.3 8.5-10.1 mg/dL Bilirubin Total 0.7 0.2-1.0 mg/dL Aspartate Amino Transferase 14 15-37 U/L Alanine Aminotransferase 25 14-59 U/L Alkaline Phosphatase 94 46-116 U/L Total Protein 7.4 6.4-8.2 g/dL Albumin Level 3.6 3.4-5.0 g/dL Globulin 3.8 Albumin Globulin Ratio 0.9 Performing Lab: see note ML - The [facility] LB LDH (Not yet reviewed by pro vider) Interpretation: Performing Lab: Notes/Report: [facility] , Lactate Dehydrogenase 174 81-234 U/L Performing Lab: see note ML - The [facility] LB XR femur LT 2V (Not yet revi ewed by provider) Interpretation: Performing Lab: Notes/Report: Source Facility: [facility]-[address] [place] [address] [place] [address] XRay Report Signed Patient: DIAMOND GUERRERO MR#: [id number] : 1975 Acct:[id number] Age/Sex: 49 / F ADM Date: 12/08/24 Loc: NM Attending Dr: Rachel Mcintosh M.D. Ordering Physician: Rachel Mcintosh M.D. Date of Service: 12/08/24 Procedure(s): XR femur LT 2V Accession Number(s): [id number] cc: Rachel Mcintosh M.D.; PALMIRA,BERNICE [address] [address] Patient Name: DIAMOND GUERRERO MRN: [id number] date: 1975 Sex: F Assigned Patient Location: AK Current Patient Location: AK Accession/Order Number: [id number] Exam Date: 12/08/2024 10:27 Report Date: 12/08/2024 10:31 At the request of: RACHEL MCINTOSH MD Procedure: XR femur LT 2V Left femur 2 views. Reason for exam: Abnormal PET scan COMPARISON: PET/CT 11/18/2024 FINDINGS: No focal soft tissue abnormality or acute bony process is seen. No suspicious lesion is seen. No bony destruction. XR/XR femur LT 2V IMPRESSION: No suspicious bony lesion is seen involving the left femur. Impression dictated by: Silvestre Lizarraga Jr., D.O. 12/08/2024 10:31 AM Dictation Location: [place] [address] Electronically authenticated by: [id number] Y Date: 12/08/2024 10:31 Dictated By: Silvestre Lizarraga M.D. Signed By: 12/08/24 1124 DD/ 1031 TD/TT: Windows Desktop Support: [place] [address] XRay Report Signed Patient: ANAI GUERRERO MR#: [id number] : 1975 Acct:[id number] Age/Sex: 49 / F ADM Date: 12/08/24 Loc: [place] Attending Dr: Keaton Mcintosh M.D. Ordering Physician: Rachel Mcintosh M.D. Date of Service: 12/08/24 Procedure(s): XR fem ur LT 2V Accession Number(s): [id number] cc: Rachel Mcintosh; BERNICE GUTIERREZ [address] [id number] Patient Name: DIAMOND GUERRREO MRN: [id number] date: 1975 Sex: F Assigned Patient Location: AK Current Patient Location: AK Accession/Order Numb er: [id number] Exam Date: 12/08/2024 10:27 Report Date: 12/08/2024 10:31 At the request of: RACHEL MCINTOSH MD Procedure: XR femur LT 2V Left femur 2 views. Reason for exam: Abnormal PET scan COMPARISON: PET/CT 11/18/2024 FINDINGS: No focal s oft tissue abnormality or acute bony process is seen. No suspicious lesion is seen. No bony destruction. X R/XR femur LT 2V IMPRESSION: No suspicious bony lesion is seen involving the left femur. Impression dictated by: Silvestre Lizarraga Jr., D.O. 12/08/2024 10:31 AM Dictation Location: [place] [address] Electronically authenticated by: [id number] Y Date: 12/08/2024 10:31 Dictated By: Silvestre Lizarraga M.D. Signed By: 12/08/24 1124 DD/ 1031 TD/TT: Windows Desktop Support: PROF Lozano(COMP METB) (Not yet reviewed by provider) Interpretation: Performing Lab: Notes/Report: [facility] , Sodium 140 136-145 mmol/L Potassium 4.3 3.5-5.1 mmol/L Chloride 108 98-107 mmol/L Carbon Dioxide 24.5 21.0-32.0 mmol/L Anion Gap 11.8 Glucose 97 74-106 mg/dL Blood Urea Nitrogen 8.0 7.0-18.0 mg/dL Creatinine 0.58 0.55-1.02 mg/dL Estimated GFR ( Jamila >60 >=60 mL/min/1.73m 2 Estimated GFR (Non- Kimberlee >60 >=60 mL/min/1.73m 2 BUN Creatinine Ratio 13.8 Calcium 8.8 8.5-10.1 mg/dL Bilirubin Total 0.5 0.2-1.0 mg/dL Aspartate Amino Transferase 21 15-37 U/L Alanine Aminotransferase 24 14-59 U/L Alkaline Phosphatase 85 46-116 U/L Total Protein 7.2 6.4-8.2 g/dL Albumin Level 3.4 3.4-5.0 g/dL Globulin 3.8 Albumin Globulin Ratio 0.9 Performing Lab: see note ML - The [facility] LB LDH (Not yet reviewed by pro vider) Interpretation: Performing Lab: Notes/Report: [facility] , Lactate Dehydrogenase 230 81-234 U/L Performing Lab: see note ML - The [facility] LB Reason For Referral No Information Encounters Encounter Location Date Provider Diagnosis [facility] Oncology [address] [place] [facility] [place] [address] 06/03/2024 Rachel Dayna [facility] Oncology [address] [place] [address] 10/14/2024 Rachel Mcintosh Plan Of Treatment Pending Test Test Name Order Date CBC AUTO DIFF 01/29/2024 CBC AUTO DIFF 05/27/2024 CBC AUTO DIFF 10/08/2024 LDH 01/29/2024 LDH 10/08/2024 LDH 05/27/2024 PROF 14(COMP METB) 01/29/2024 PROF 14(COMP METB) 10/08/2024 PROF 14(COMP METB) 05/27/2024 URIC ACID SERUM 05/27/2024 URIC ACID SERUM 01/29/2024 PET skull to mid thigh 11/18/2024 NM bone scan whole body 12/08/2024 XR femur LT 2V 12/08/2024 Comp panel: Leukemia/Lymphoma 01/29/2024 Next Appt Details Provider Name:Rachel Mcintosh , 04/14/2025 11:15:00 AM, [address] [place], [address], Insurance Providers Payer Name Payer Address Payer Phone Subscriber Number Group Number Insured Name Patient Relationship to Insured Coverage Start Date Coverage End Date [employer] [place] [employer] [address] [address] [place] [id number] [id number] Diamond Guerrero Self - patient is the insured 3
--- OUTSIDE RECORDS SUMMARY | 2025-03-09 15:08 | XMS_ITS | Encounter Summary ---
Author Organization [facility] Address [address] [place] [address] Care Team Providers Care Medical Billing Representative Name Role Phone Jason Valderrama MD Primary [...] Care Team (Late st Contact Info) Description 09/16/2015 Get Medical Advice Rheumatology [address] [place] [phone] Steffi Farooq MD [facility] [place] [address] RE: Non-Urgent Medical Question Social [...] on filedocumented in this encounter Care Teams Medical Billing Representative Relationship Specialty Start Date End Date Jason Valderrama MD [address] [place] [phone] PCP - General Internal Medicine 04/27/14 documented as of this encounter
--- OUTSIDE RECORDS SUMMARY | 2025-03-09 15:09 | XMS_ITS | Clinical Summary ---
Author Organization [facility] Address [address] [facility], [address] [place] [address] Care Team Providers Care Soap Drier Operator Name Role Phone Angeli Almendarez MD Primary Care Provider [phone] Allergies Active Allergy Reactions Criticality Noted Date Comments Chlorhexidine Rash High 12/10/2013 Burning, nausea Codeine Itching 07/01/2012 Hydromorphone Hcl Itching Low 12/16/2013 Latex Rash Low 12/23/2012 Medications loratadine (CLARITIN) 10 MG tablet Take 10 mg by mouth daily. Active HYDROcodone-duke taminophen (NORCO) 5-325 MG per tablet Take 1 tablet by mouth every 6 hours as needed for Pain Active Ondansetron HCl (ZOFRAN PO) Take by mouth as needed Active tamsulosin (FLOMAX) 0.4 MG capsule Take 1 capsule by mouth daily 10 capsule 0 11/17/2015 Active cetirizine (ZYRTEC) 10 MG tablet Take 10 mg by mouth daily Active ibuprofen (ADVIL;MOTRIN) 200 MG tablet Take 200 mg by mouth every 6 hours as needed for Pain Active Active Problems Problem Noted Date Diagnosed Date Renal lithiasis 03/10/2015 S/P DOV (total abdominal hysterectomy) 4 S/P abdominal hysterectomy and left salpingo-oop horectomy 12/16/2013 Epithelial inclusion cyst 01/15/2013 Muscle weakness (generalized) 07/01/2012 Urinary incontinence 07/01/2012 Fatigue 07/01/2012 Family History Medical History Relation Name Comments Cancer Father Cancer Maternal Grandfather High Blood Pressure Maternal Grandfather Cancer Maternal Grandmother Diabetes Maternal Grandmother High Blood Pressure Maternal Grandmother Diabetes Mother High Blood Pressure Paternal Grandfather Cancer Paternal Grandmother High Blood Pressure Paternal Grandmother Relation Name Status Comments Father Maternal Grandfather Maternal Grandmother Mother Paternal Grandfather Paternal Grandmother Social History Tobacco Use Types Packs/Day Years Used Date Smoking Tobacco: Every Day Cigarettes 0.5 22 Smokeless Tobacco: Never Tobacco Cessation:Ready to Q uit: No; Counseling Given: No Alcohol Use Standard Drinks/Week Comments No 0 (1 standard drink = 0.6 oz pur e alcohol) Comments No Sex and Gender Information Value Date Recorded Sex Assigned at Not on file Legal Sex Female 10:28 AM EST Gender Identity Not on file Sexual Orientation Not on file Last Filed Vital Signs Vital Sign Reading Time Taken Comments Blood Pressure 110/80 10/02/2016 11:05 AM EST Pulse 88 02/11/2015 4:50 PM EDT Temperature 37 C (98.6 F) 10/02/2016 11:05 AM EST Respiratory Rate 14 02/11/2015 4:50 PM EDT Oxygen Saturation 98% 02/11/2015 4:50 PM EDT Inhaled Oxygen Concentration - - Weight 96.2 kg (212 lb) 10/02/2016 11:05 AM EST Height 175.3 cm (5' 9 ) 10/02/2016 11:05 AM EST Body Mass Index 31.31 10/02/2016 11:05 AM EST Plan of Treatment Not on file Goals Goal Patient Goal Type Associated Problems Recent Progress Patient-Stated? Author To get referred to a neurologist. Lifestyle On track( 013 3:14 PM EDT) No Arline Watt Quit smoking. Lifestyle Not on track( 013 8:57 AM EDT) No Arline Watt Quit smoking. Lifestyle No MartArline gallegos Insurance [employer] [id number] [place] [id number] Advance Directives * Full Code (Latest Code Status on File) Date Activated Date Inactivated Comments 12/16/2013 12:18 PM 12/18/2013 4:52 PM * Full Code Date Activated Date Inactivated Comments 12/16/2013 6:14 AM 12/16/2013 11:48 AM * Full Code Date Activated Date Inactivated Comments 01/15/2013 5:47 PM 01/16/2013 5:42 PM Care Teams Soap Drier Operator Relationship Specialty Start Date End Date Angeli Almendarez MD [address] [place] [phone] PCP - General 03/08/16
--- OUTSIDE RECORDS SUMMARY | 2025-03-09 15:09 | XMS_ITS ---
Author Organization [facility] Address [address] [place] [address] Care Team Providers Care Roll Skinner Name Role Phone Gary Lees MD Unavailable [phone] Estrella Moreau MD Unavailable [phone] Nicol Harkins CNP Unavailable Abhishek Gutierrez MD Primary Care Provider Oncology Status:Enrolled (Active) Start date:07/25/2024 Enrollment date:07/25/2024 Enrollment reason:Referred by provider Continued Care and Services Coordination
--- OUTSIDE RECORDS SUMMARY | 2025-03-09 15:09 | XMS_ITS ---
Author Organization [facility] Address [address] [place] [address] Care Team Providers Care Artillery Or Naval Gunfire Observer Name Role Phone Gary Lees MD Unavailable [phone] Estrella Moreau MD Unavailable [phone] Nicol Harkins CNP Unavailable Abhishek Gutierrez MD Primary Care Provider [phone] Active Problems Problem Noted Date Diagnosed Date Thoracic spondylosis 05/02/2023 05/02/2023 Inflammation of sacroiliac joint 05/02/2023 05/02/2023 Lumbosacral spondylosis without myelopathy 05/0205/02/2023 Lumbar radiculopathy 05/02/2023 05/02/2023 Chronic fatigue 08/02/2022 CLL (chronic lymphocytic leukemia) 03/23/2022 Carpal tunnel syndrome 01/24/2013 Epithelial inclusion cyst 01/15/20132022 Malaise and fatigue 12/04/2012 05/02/2023 Abnormal reflex 10/22/2012 05/02/2023 Muscle weakness (generalized) 07/01/2012 Current Treatment and Therapy Plans OP Acalabrutinib + Obinutuzumab, 28 Day Cycles - CLL/SLL* Plan Start Date: 10/30/2021 Plan Provider:Gary Lees MD Linked Problems CLL (chronic lymphocytic apollo kemia) (CMS/HCC) Treatment Medications obinutuzumab (Gazyva) 100 mg in 100 mL 0.9% sodium chloride IVPBobinutuzumab (Gazyva) in 250 mL 0.9% sodium chloride IVPB Past Treatment and Therapy Plans No past plan information found.
--- OUTSIDE RECORDS SUMMARY | 2025-03-09 15:09 | XMS_ITS | Encounter Summary ---
Author Organization [facility] Address [address] [place] [address] Care Team Providers Care Prototype Sewer Name Role Phone Gary Lees MD Unavailable Estrella Moreau MD Unavailable [phone] Nicol Harkins CNP Unavailable Abhishek Gutierrez MD Primary Care Provider [phone] Reason for Visit * Reason Comments Med Refill Encounter Details Date Type Department Care Team (Late st Contact Info) Description 11/21/[address] [facility] [address] [place] [address] Gary Lees MD [address] [place] [address] Lymphoid leukemia, unspecified not having achieved remission (CMS/HCC) Social History Tobacco Use Types Packs/Day Years Used Date Smoking Tobacco: Never Smokeless Tobacco: Current Alcohol Use Standard Drinks/Week Comments Never 0 (1 standard drink = 0.6 oz pur e alcohol) Humiliation, Afraid, Rape, and Kick questionnair e Answer Date Recorded Within the last year, have y ou been afraid of your partner or ex-partner? No 11/22/2022 Emotionally Abused Not on file 11/22/2022 Physically Abused Not on file 11/22/2022 Sexually Abused Not on file 11/22/2022 PHQ-2 Answer Date Recorded Patient Health Questionnaire-2 Score 0 08/02/2022 [place] Safety & Environment Answer Date Rec orded Within the last year, have y ou been afraid of your partner or ex-partner? No 11/22/2022 Emotionally Abused Not on file 11/22/2022 Physically Abused Not on file 11/22/2022 Sexually Abused Not on file 11/22/2022 Physically or Sexually Abused Not on file Comments No Sex and Gender Information Value Date Recorded Sex Assigned at Not on file Legal Sex Female 10:55 PM EDT Gender Identity Not on file Sexual Orientation Not on file COVID-19 Exposure Response Date Recorded In the last 10 days, have yo u been in contact with someone who was confirmed or suspected to have Coronavirus/COVID-19? 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
--- OUTSIDE RECORDS SUMMARY | 2025-03-09 15:09 | XMS_ITS | Patient Health Record ---
Author Organization [facility] Address [address] [place] [address] Care Team Providers Care Adjunct Spanish Instructor Name Role Phone BandaSilvestre Primary Care Provider Reason For Referral No Information Problems Problem Type SNOMED Code ICD Code Onset Dates Problem Status W/U Status Risk Notes Problem Major depressive disorder ([id number]) Major depressive disorder (F32.9) Active confirmed Encounters Encounter Location Date Provider Diagnosis [facility] [place] [address] 03/21/2024 Silvestre Banda Major depressive disorder F32.9 Assessments Encounter Date Diagnosis (ICD Code) Assessment Notes Treatment Notes Treatment Clinical Notes Section Notes 03/21/2024 Major depressive disorder (ICD-10 - F32.9) Plan Of Treatment No Information Insurance Providers Payer Name Payer Address Payer Phone Subscriber Number Group Number Insured Name Patient Relationship to Insured Coverage Start Date Coverage End Date [facility] [address] [place] [address] [id number] DIAMOND MONTGOMERY Self - patient is the insured 4 [facility] [address] [place] [address] [id number] DIAMOND MONTGOMERY Self - patient is the insured 4
--- OUTSIDE RECORDS SUMMARY | 2025-03-09 15:09 | XMS_ITS | Clinical Summary ---
Author Organization [facility] Address [address] [place] [address] Care Team Providers Care Home Care Companion Name Role Phone Gary Lees MD Unavailable Estrella Moreau MD Unavailable [phone] Nicol Harkins CNP Unavailable Abhishek Gutierrez MD Primary Care Provider [phone] Allergies Active Allergy Reactions Criticality Noted Date Comments [place] 11/22/2022 Other reaction(s): mouth burning. Chlorhexidine Rash High 12/10/2013 Other reaction(s): burning, Other Burning, nausea Chlorhexidine Gluconate 07/24/2014 Other reaction(s): other Codeine Itching Medium 07/01/2012 Grass Pollen 05/10/2022 House Dust 05/10/2022 Hydromorphone Hcl Itching Low 12/16/2013 Latex Itching,Rash Low 12/23/2012 Other reaction(s): Other, rash itching Tree And Shrub Pollen 05/10/2022 Medications cetirizine (ZyrTEC) 10 mg tablet Allergy Relief (cetirizine) 10 mg tablet Active EPINEPHrine 0.3 mg/0.3 mL injection syringe epinephrine 0.3 mg/0.3 mL injection, auto-injector 1 Active acalabrutinib (Calquence) 100 mg chemo capsuleIndicatio ns:CLL (chronic lymphocytic leukemia) (CMS/HCC) Take one capsule by mouth in the morning and at bedtime. 60 capsule 2 Active Additional Information Patient not taking.Reported on 10/22/2023 acalabrutinib (Calquence) 100 mg chemo capsuleIndicatio ns:CLL (chronic lymphocytic leukemia) (CMS/HCC) Take one capsule by mouth in the morning and at bedtime. 60 capsule 3 Active Additional Information Patient not taking.Reported on 10/22/2023 acalabrutinib (Calquence) 100 mg chemo capsuleIndicatio ns:CLL (chronic lymphocytic leukemia) (CMS/HCC) Take one capsule by mouth in the morning and at bedtime. 60 capsule 3 Active Additional Information Patient not taking.Reported on 10/22/2023 acalabrutinib (Calquence) 100 mg chemo capsuleIndicatio ns:CLL (chronic lymphocytic leukemia) (CMS/HCC) Take one capsule by mouth in the morning and at bedtime. 60 capsule 3 Active Additional Information Patient not taking.Reported on 10/22/2023 acalabrutinib (Calquence) 100 mg chemo capsuleIndicatio ns:CLL (chronic lymphocytic leukemia) (CMS/HCC) Take one capsule by mouth in the morning and at bedtime. 60 capsule 3 Active Additional Information Patient not taking.Reported on 10/22/2023 acalabrutinib (Calquence) 100 mg chemo capsuleIndicatio ns:CLL (chronic lymphocytic leukemia) (CMS/HCC) Take one capsule by mouth in the morning and at bedtime. 60 capsule 3 Active Additional Information Patient not taking.Reported on 10/22/2023 acalabrutinib (Calquence) 100 mg chemo capsuleIndicatio ns:CLL (chronic lymphocytic leukemia) (CMS/HCC) Take one capsule by mouth in the morning and at bedtime. 60 capsule 3 Active Additional Information Patient not taking.Reported on 10/22/2023 acalabrutinib (Calquence) 100 mg chemo capsuleIndicatio ns:CLL (chronic lymphocytic leukemia) (CMS/HCC) Take one capsule by mouth in the morning and at bedtime. 60 capsule 3 Active Additional Information Patient not taking.Reported on 10/22/2023 acalabrutinib (Calquence) 100 mg chemo capsuleIndicatio ns:CLL (chronic lymphocytic leukemia) (CMS/HCC) Take one capsule by mouth in the morning and at bedtime. 60 capsule 3 Active Additional Information Patient not taking.Reported on 10/22/2023 acalabrutinib (Calquence) 100 mg chemo capsuleIndicatio ns:CLL (chronic lymphocytic leukemia) (CMS/HCC) Take one capsule by mouth in the morning and at bedtime. 60 capsule 4 Active Additional Information Patient not taking.Reported on 10/22/2023 acalabrutinib (Calquence) 100 mg chemo capsuleIndicatio ns:CLL (chronic lymphocytic leukemia) (CMS/HCC) Take one capsule by mouth in the morning and at bedtime. 60 capsule 4 Active Active Problems Problem Noted Date Diagnosed Date Thoracic spondylosis 05/02/2023 05/02/2023 Inflammation of sacroiliac joint 05/02/2023 05/02/2023 Lumbosacral spondylosis without myelopathy 05/0205/02/2023 Lumbar radiculopathy 05/02/2023 05/02/2023 Chronic fatigue 08/02/2022 CLL (chronic lymphocytic leukemia) 03/23/2022 Carpal tunnel syndrome 01/24/2013 Epithelial inclusion cyst 01/15/20132022 Malaise and fatigue 12/04/2012 05/02/2023 Abnormal reflex 10/22/2012 05/02/2023 Muscle weakness (generalized) 07/01/2012 Family History Medical History Relation Name Comments Cancer Father Dad Cancer Maternal Grandfather Grandpa Stroke Maternal Grandfather Grandpa Diabetes Mother Mom Hypertension Mother Mom Cancer Paternal Grandmother Grandma Relation Name Status Comments Father Dad Maternal Grandfather Grandpa Mother Mom Paternal Grandmother Grandma Social History Tobacco Use Types Packs/Day Years Used Date Smoking Tobacco: Former Cigarettes 1.5 29 0 08/06/1989 - 08/06/2018 Passive Smoke Exposure: Past Smokeless Tobacco: Never Tobacco Cessation:Counseling Given: Not Answered Alcohol Use Standard Drinks/Week Comments Not Currently 0 (1 standard drink = 0.6 oz pur e alcohol) Humiliation, Afraid, Rape, and Kick questionnair e Answer Date Recorded Within the last year, have y ou been afraid of your partner or ex-partner? No 11/22/2022 Emotionally Abused Not on file 11/22/2022 Physically Abused Not on file 11/22/2022 Sexually Abused Not on file 11/22/2022 PHQ-2 Answer Date Recorded Patient Health Questionnaire-2 Score 0 05/23/2023 [place] Safety & Environment Answer Date Rec orded Fear of Current or Ex-Partner Not on file Emotionally Abused Not on file 12/13/2023 Physically Abused Not on file 12/13/2023 Sexually Abused Not on file 12/13/2023 Physically or Sexually Abused Not on file Comments No Sex and Gender Information Value Date Recorded Sex Assigned at Not on file Legal Sex Female 10:55 PM EDT Gender Identity Not on file Sexual Orientation Not on file Last Filed Vital Signs Vital Sign Reading Time Taken Comments Blood Pressure 136/66 10/22/2023 10:27 AM EDT Pulse 84 10/22/2023 10:27 AM EDT Temperature 36.8 C (98.2 F) 05/23/2023 10:27 AM EDT Respiratory Rate 16 03/28/2023 9:52 AM EDT Oxygen Saturation 99% 10/22/2023 10:27 AM EDT Inhaled Oxygen Concentration - - Weight 101 kg (223 lb) 10/22/2023 10:27 AM EDT Height 172.7 cm (5' 8 ) 10/22/2023 10:27 AM EDT Body Mass Index 33.91 10/22/2023 10:27 AM EDT Plan of Treatment Health Maintenance Due Date Last Done Comments CT Colonography 1974 Colonoscopy 1974 Colorectal Cancer Screening 1974 FIT-DNA 1974 FIT 1974 FOBT 1974 Sigmoidoscopy 1974 Depression Screening 1986 Hepatitis B Vaccines (1 of 3 - 19+ 3-dose series) 1993 Pneumococcal Vaccine: Pediatrics (0 to 5 Years) and At-Risk Patients (6 to 64 Years) (1 of 2 - PCV) 1993 Zoster Vaccines (1 of 2) 1993 Pap Smear 1995 Adult Tetanus 1996 Cervical Cancer Screening 2004 HPV/Cotest 2004 Mammogram 2014 COVID-19 Vaccine (2023-2 5 season) 2024 07/22/2021, 12/11/2020, 11/20/2020 Influenza Vaccine (#1) 2025 HIB Vaccines Aged Out No longer eligi ble based on patient's age to complete this topic HPV Vaccines Aged Out No longer eligi ble based on patient's age to complete this topic IPV Vaccines Aged Out No longer eligi ble based on patient's age to complete this topic Meningococcal B Vaccine Aged Out No l onger eligible based on patient's age to complete this topic Meningococcal Vaccine Aged Out No olivia jenn eligible based on patient's age to complete this topic Rotavirus Vaccines Aged Out No longer eligible based on patient's age to complete this topic Insurance COUNT INCLUDES THE [facility] MEDICAID Care Teams Home Care Companion Relationship Specialty Start Date End Date Abhishek Gutierrez MD DIV OF PM&R PCP - General Family Medicine 05/22/23 Gary Lees MD [address] [place] [address] Hematology and Oncology 03/29/22 Estrella Moreau MD [address] [place] [address] Hematology and Oncology 05/22/22 Nicol Harkins, KAVON [address] [place] [address] Consulting Physician Hematology and Oncology 05/08/23
[2025-03-09 16:14] LABS: Cholesterol 187 mg/dL (<=200); HDL Cholesterol 47 mg/dL (40-60); TSH W/ REFLEX FT4 1.597 uIU/mL (0.358-3.740); Triglycerides 116 mg/dL (<=150); VLDL CHOLESTEROL 23.2 mg/dL
[2025-03-10 04:07] LABS: FSH 65.9 mIU/mL (.)
[2025-03-11 00:07] LABS: Estrogens, Total 128 pg/mL (.)
== END 2025-03-09 15:05 | disposition home or self-care (01) ==
DX: R53.82 Chronic fatigue, unspecified (principal); C91.10 Chronic lymphocytic leukemia of B-cell type not having achieved remission; L74.9 Eccrine sweat disorder, unspecified; Z13.6 Encounter for screening for cardiovascular disorders
CPT/HCPCS: 36415; 80061; 82672; 83001; 83002; 84402; 84403; 84443

== ENCOUNTER 2025-04-07 14:10 | Outpatient (OUT) | payer MEDICAID, SELFPAY ==
--- OUTSIDE RECORDS SUMMARY | 2016-03-03 09:15 | XMS_ITS | Encounter Summary ---
Author Organization [facility] Address [address], [address] [place] [address] Care Team Providers Care Block Bolter Mule Operator Name Role Phone Shlomo Dominique MD Primary Care Provider [phone] Encounter Details Date Type Department Care Team (Late st Contact Info) Description 03/03/2016 9:15 AM EDT Hospital Encounter [facility] Physical Therapy [address] [place], [place] [phone] Amara Martini, Shlomo Ac MD [address] [place] [address] Social History Tobacco Use Types [...] Martini PTA - 03/03/2016 9:53 AM EDT [facility] Outpatient Physical Therapy Daily Note Patient: Ruthie Guerrero : 1975 Referring Practitioner: Dr. Shlomo Dominique Referral Date : 02/08/16 Date: 03/03/2016 Referring Practitioner: Dr. 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 Total # of Visits Approved: 18 [...] []Not met []Met []Partially met []Not met Custodial Goals - Time Frame for numerical control nesting operator goals : 6 weeks numerical control nesting operator goal 1: Pt to report independence and compliance with home program. penitentiary goal 2: Pt to maintain supine double leg lift for 25 seconds indicating improved core strength. numerical control nesting operator goal 3: Pt to report decrease shooting pain in LE's by 50% throughout the day. Post Treatment Pain: 11/13 Time In: 0915 Time Out: 1000 Timed Code Treatment Minutes: 45 Minutes Total Treatment Time: 45 Minutes Amara Martini Therapy License Number: [employer] [id number] Date: 03/03/2016 Cosigned by Nelia Rivera [...] on filedocumented in this encounter Care Teams Block Bolter Mule Operator Relationship Specialty Start Date End Date Shlomo Dominique MD [address] [place] [address] PCP - General 02/24/16 03/07/16 documented as of this encounter
--- OUTSIDE RECORDS SUMMARY | 2016-03-27 12:30 | XMS_ITS | Encounter Summary ---
Author Organization [facility] Address [address], [address] [place] [address] Care Team Providers Care Water Control Station Engineer Name Role Phone Angeli Almendarez MD Primary Care Provider [phone] Encounter Details Date Type Department Care Team (Late st Contact Info) Description 03/27/2016 12:30 PM EDT Hospital Encounter [facility] [address] [place], [place] [id number] Amara Martini, Shlomo Ac MD [address] [place] [address] Social History Tobacco Use Types [...] on file documented as of this encounter Discharge Summaries * Nelia Rivera, PT - 05/05/2016 3:35 PM EDT [facility] Outpatient Physical Therapy Discharge Summary Patient: Ruthie Guerrero : 1975 Referring physician: Shlomo Dominique Referring Practitioner: Dr. 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 Date Treatment Initiated: 02/28/16 Date of Last Treatment: 03/27/16 PT Visit Information Onset Date: 02/08/16 PT Insurance Information: C[employer]ourse Total # of Visits Approved: 18 Total # of Visits to Date: 8 Plan of Care/Certification Expiration Date: 04/02/16 No Show: 0 Canceled Appointment: 2 Frequency/Duration Days: 3 times per week Weeks: 6 weeks Treatment Received []HP/CP []Electrical Stim []Therapeutic Exercise []Gait Training [x]Aquatics []Ultrasound []Patient Education/HEP []Manual Therapy []Traction []Neuro-marsha []Soft Tissue Mobs []Home TENS []Iontophoresis []Orthotic casting/fitting []Dry Needling Assessment Assessment: Pt completed 8 PT visits. Pt was contacted on 04/21/16 due to missing 2 weeks of appointments. At that time, she requested discharge stating she was going to continue her PT in [place], [place] since she was going there every day. We will now DC. Goals Short term goals Time Frame for Short term goals: 3 weeks Short term goal 1: Pt to be instructed in home program. -met Short term goal 2: Pt to be initiated in aquatic based core strengthening program. -met (03-03-16) Short term goal 3: Pt to maintain supine double leg lift for 5 seconds indicating improved core strength. prison goals Time Frame for termite treater goals : 6 weeks prison goal 1: Pt to report independence and compliance with home program.--met prison goal 2: Pt to maintain supine double leg lift for 25 seconds indicating improved core strength. prison goal 3: Pt to report decrease shooting pain in LE's by 50% throughout the day. -progressing Reason for Discharge [] Goals Achieved [] Poor Follow Through/Attendance [] Optimal Function Achieved [x] Patient Discharged Self [] Hospitalization [] Physician discharge Thank you for this referral Nelia Rivera, PT, DPT Date: 05/05/2016 documented in this encounter Progress Notes * Amara Martini, THRESHING DEPARTMENT SUPERVISOR - 03/27/2016 1:08 PM EDT [facility] Outpatient Physical Therapy Daily Note Patient: Ruthie Guerrero : 1975 Referring Practitioner: Dr. Shlomo Dominique Referral Date : 02/08/16 Date: 03/27/2016 Referring Practitioner: Dr. 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 Treatment Diagnosis: low back pain Onset Date: 02/08/16 PT Insurance Information: Caresourse Total # of Visits Approved: 18 Per Physician Order Total # of Visits to Date: 7 No Show: 0 Canceled Appointment: 1 Pre-Treatment Pain: 01/13 Subjective: Pt reports pain in (R) lowback and radisting down into (R) hip Exercises/Modalities/Manual: See DocFlow Sheet Assessment Assessment: pt reports shooting pain in LEs has not changed, waiting on insurance approval for epideral injections, pt able to negotiate reciprocally with 1 handrail for assist Plan Plan: Continue with current plan Goals (Total # of Visits to Date: 7) Short Term Goals - Time Frame for [...] []Not met []Met []Partially met []Not met Residential Goals - Time Frame for termite treater goals : 6 weeks termite treater goal 1: Pt to report independence and compliance with home program.--met termite treater goal 2: Pt to maintain supine double leg lift for 25 seconds indicating improved core strength. prison goal 3: Pt to report decrease shooting pain in LE's by 50% throughout the day. -progressing Post Treatment Pain: 10 Time In: 1230 Time Out: 1315 Timed Code Treatment Minutes: 45 Minutes Total Treatment Time: 45 Minutes Amara A Martini Therapy License Number: [id number] Date: 03/27/2016 Cosigned by Nelia Rivera PT at 03/29/2016 1:39 PM EDT documented in this encounter Plan [...] on filedocumented in this encounter Care Teams Water Control Station Engineer Relationship Specialty Start Date End Date Angeli Almendarez MD [address] [place] [phone] PCP - General 03/08/16 documented as of this encounter
--- OUTSIDE RECORDS SUMMARY | 2016-03-31 10:45 | XMS_ITS | Encounter Summary ---
Author Organization [facility] Address [address], [address] [place] [address] Care Team Providers Care Back Shoe Operator Name Role Phone Angeli Almendarez MD Primary Care Provider [phone] Encounter Details Date Type Department Care Team (Late st Contact Info) Description 03/31/2016 10:45 AM EDT Hospital Encounter [facility] [address] [place], [place] [phone] Amara Martini, Shlomo Ac MD [address] [place] [address] Social History Tobacco Use Types [...] Martini PTA - 03/31/2016 11:25 AM EDT [facility] Outpatient Physical Therapy Daily Note Patient: [...] []Not met []Met []Partially met []Not met [employer] Academic Coach Goals - 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 termite inspector goal 3: Pt to report decrease shooting pain in LE's by 50% throughout the day. -progressing Post Treatment Pain: 01/13 Time In: 1045 Time Out: 1130 Timed Code Treatment Minutes: 45 Minutes Total Treatment Time: 45 Minutes Amara Martini Therapy License Number: [id number] Date: 03/31/2016 Cosigned by Nelia Rivera PT [...] on filedocumented in this encounter Care Teams Back Shoe Operator Relationship Specialty Start Date End Date Angeli Almendarez MD [address] [place] [phone] PCP - General 03/08/16 documented as of this encounter
--- OUTSIDE RECORDS SUMMARY | 2025-04-07 14:12 | XMS_ITS | Clinical Summary ---
Author Organization [facility] Address [address] [place] [address] Care Team Providers Care Instructional Technology Specialist Name Role Phone Gary Lees MD Unavailable [phone] Estrella Moreau MD Unavailable [phone] Nicol Harkins CNP Unavailable Abhishek Gutierrez MD Primary Care Provider [phone] Allergies Active Allergy Reactions Criticality Noted Date Comments Coy 11/22/2022 Other reaction(s): mouth burning. Chlorhexidine Rash [...] patient's age to complete this topic Insurance [facility] MEDICAID Care Teams Instructional Technology Specialist Relationship Specialty Start Date End Date Abhishek Gutierrez MD DIV OF PM&R PCP - General Family Medicine 05/22/23 Gary Lees MD [address] [place] [address] Hematology and Oncology 03/29/22 Estrella Moreau MD [address] [place] [address] Hematology and Oncology 05/22/22 Nicol Harkins, KAVON [address] [place] [address] Consulting Physician Hematology and Oncology 05/08/23
--- OUTSIDE RECORDS SUMMARY | 2025-04-07 14:12 | XMS_ITS | Encounter Summary ---
Author Organization [facility] Address [address] [place] [address] Care Team Providers Care Crime Prevention Police Officer Name Role Phone Jason Valderrama MD Primary [...] Info) Description 06/04/2015 Get Medical Advice Spine [place] [address] [place] [address] Jaiden Paris MD [address] [place] [address] RE: Non-Urgent Medical Question Social [...] on filedocumented in this encounter Care Teams Crime Prevention Police Officer Relationship Specialty Start Date End Date Jason Valderrama MD [address] [place] [phone] PCP - General Internal Medicine 04/27/14 documented as of this encounter
--- OUTSIDE RECORDS SUMMARY | 2025-04-07 14:12 | XMS_ITS | Encounter Summary ---
Author Organization [facility] Address [address] [place] [address] Care Team Providers Care Storage And Backup Administrator Name Role Phone Jason Valderrama MD Primary Care Provid er Source Comments In the event this information is protected by the Federal Confidentiality of Alcohol and Drug AbusePatient Records regulations: The Federal rules restrict any use of the information to criminally investigate or prosecute any alcohol or drug abuse patient.[facility] Encounter Details Date Type Department Care Team (Late st Contact Info) Description 09/23/2015 Get Medical Advice Rheumatology [address] [id number] Steffi Farooq MD [facility] [place] [address] RE: Non-Urgent Medical Question Social [...] on filedocumented in this encounter Care Teams Storage And Backup Administrator Relationship Specialty Start Date End Date Jason Valderrama MD [address] [place] [phone] PCP - General Internal Medicine 04/27/14 documented as of this encounter
--- OUTSIDE RECORDS SUMMARY | 2025-04-07 14:12 | XMS_ITS | Encounter Summary ---
Author Organization [facility] Address [address] [place] [address] Care Team Providers Care Teachers' Aide Name Role Phone Jason Valderrama MD Primary Care Provid er Source Comments In the event this information is protected by the Federal Confidentiality of Alcohol and Drug AbusePatient Records regulations: The Federal rules restrict any use of the information to criminally investigate or prosecute any alcohol or drug abuse patient.[facility] Encounter Details Date Type Department Care Team (Late st Contact Info) Description 09/15/2015 Get Medical Advice Spine [place] [address] [place] [address] Jaiden Paris MD [address] [place] [address] Non-Urgent Medical Question Social History [...] on filedocumented in this encounter Care Teams Teachers' Aide Relationship Specialty Start Date End Date Jason Valderrama MD [address] [place] [phone] PCP - General Internal Medicine 04/27/14 documented as of this encounter
--- OUTSIDE RECORDS SUMMARY | 2025-04-07 14:12 | XMS_ITS | Encounter Summary ---
Author Organization [facility] Address [address] [place] [address] Care Team Providers Care Apron Trimmer Name Role Phone Jason Valderrama MD Primary Care Provid er Source Comments In the event this information is protected by the Federal Confidentiality of Alcohol and Drug AbusePatient Records regulations: The Federal rules restrict any use of the information to criminally investigate or prosecute any alcohol or drug abuse patient.[facility] Encounter Details Date Type Department Care Team (Late st Contact Info) Description 11/10/2015 Get Medical Advice Rheumatology [address] [phone] Steffi Farooq MD [facility] [place] [address] RE: Non-Urgent Medical Question Social [...] on filedocumented in this encounter Care Teams Apron Trimmer Relationship Specialty Start Date End Date Jason Valderrama MD [address] [place] [phone] PCP - General Internal Medicine 04/27/14 documented as of this encounter
--- OUTSIDE RECORDS SUMMARY | 2025-04-07 14:12 | XMS_ITS | Encounter Summary ---
Author Organization [facility] Address [address] [place] [address] Care Team Providers Care Measurement Specialist Name Role Phone Jason Valderrama MD Primary Care Provid er Source Comments In the event this information is protected by the Federal Confidentiality of Alcohol and Drug AbusePatient Records regulations: The Federal rules restrict any use of the information to criminally investigate or prosecute any alcohol or drug abuse patient.[facility] Encounter Details Date Type Department Care Team (Late st Contact Info) Description 09/23/2015 Get Medical Advice Spine [place] [address] [place] [address] Jaiden Paris MD [address] [place] [address] RE: Non-Urgent Medical Question Social [...] on filedocumented in this encounter Care Teams Measurement Specialist Relationship Specialty Start Date End Date Jason Valderrama MD [address] [place] [phone] PCP - General Internal Medicine 04/27/14 documented as of this encounter
--- OUTSIDE RECORDS SUMMARY | 2025-04-07 14:12 | XMS_ITS | Encounter Summary ---
Author Organization [facility] Address [address] [place] [address] Care Team Providers Care Hazardous Materials Tanker Driver Name Role Phone Jason Valderrama MD Primary Care Provid er Source Comments In the event this information is protected by the Federal Confidentiality of Alcohol and Drug AbusePatient Records regulations: The Federal rules restrict any use of the information to criminally investigate or prosecute any alcohol or drug abuse patient.[facility] Encounter Details Date Type Department Care Team (Late st Contact Info) Description 06/09/2014 Patient Msg Medical Records [address] [place] [address] Provider, Ccf test results Social History Tobacco [...] on filedocumented in this encounter Care Teams Hazardous Materials Tanker Driver Relationship Specialty Start Date End Date Jason Valderrama MD [address] [place] [phone] PCP - General Internal Medicine 04/27/14 documented as of this encounter
--- OUTSIDE RECORDS SUMMARY | 2025-04-07 14:12 | XMS_ITS | Clinical Summary ---
Author Organization [facility] Address [address] [place] [address] Care Team Providers Care Continuous Linter Drier Operator Name Role Phone Unavailable Primary Care Provider [...]
--- OUTSIDE RECORDS SUMMARY | 2025-04-07 14:12 | XMS_ITS | Encounter Summary ---
Author Organization [facility] Address [address] [place] [address] Care Team Providers Care Isotope Technician Name Role Phone Josephine Srinivasan MD Primary Care Provider [phone] Jason Valderrama MD Primary Care Provid er Source Comments In the event this information is protected by the Federal Confidentiality of Alcohol and Drug AbusePatient Records regulations: The Federal rules restrict any use of the information to criminally investigate or prosecute any alcohol or drug abuse patient.[facility] Encounter Details Date Type Department Care Team (Late st Contact Info) Description 03/09/2014 Patient Msg Medical Records [address] [place] [address] Provider, Ccf test results Social History Tobacco [...] on filedocumented in this encounter Care Teams Isotope Technician Relationship Specialty Start Date End Date Josephine Srinivasan MD [address] [place] [address] PCP - General Family Medicine 08/30/11 04/26/14 Jason Valderrama MD [address] [place] [address] PCP - General Internal Medicine 04/27/14 documented as of this encounter
--- OUTSIDE RECORDS SUMMARY | 2025-04-07 14:12 | XMS_ITS | Encounter Summary ---
Author Organization [facility] Address [address] [place] [address] Care Team Providers Care Biomass Plant Technician Name Role Phone Gary Lees MD Unavailable [phone] Estrella Moreau MD Unavailable [phone] Nicol Harkins CNP Unavailable Abhishek Gutierrez MD Primary Care Provider [phone] Reason for Visit * Reason Comments Med Refill Encounter Details Date Type Department Care Team (Late st Contact Info) Description 11/21/2022 Refill Janneth Bunn [facility] [address] [place] [address] Gary Lees MD [address] [place] [address] Lymphoid leukemia, unspecified not having [...] Recorded Patient Health Questionnaire-2 Score 0 08/02/2022 [place] Safety & Environment Answer Date Rec orded [...] (CMS/HCC) documented in this encounter Care Teams Biomass Plant Technician Relationship Specialty Start Date End Date Abhishek Gutierrez MD DIV OF PM&R PCP - General Family Medicine 05/22/23 Gary Lees MD [address] [place] [address] Hematology and Oncology 03/29/22 Estrella Moreau MD [address] [place] [address] Hematology and Oncology 05/22/22 Nicol Harkins, SOFTWARE TECHNICAL LEAD [address] [place] [address] Consulting Physician Hematology and Oncology 05/08/23 documented as of this encounter
--- OUTSIDE RECORDS SUMMARY | 2025-04-07 14:12 | XMS_ITS | Clinical Summary ---
Author Organization [facility] Address [address] [facility], [address] [place] [address] Care Team Providers Care Trimmer Machine Name Role Phone Angeli Almendarez MD Primary Care Provider [phone] Allergies Active Allergy Reactions Criticality Noted Date [...] Lifestyle No MartArline gallegos Insurance [employer] [id number] [id number] Advance Directives * Full Code (Latest Code Status on File) Date Activated Date Inactivated Comments 12/16/2013 12:18 PM 12/18/2013 4:52 PM * Full Code Date Activated Date Inactivated Comments 12/16/2013 6:14 AM 12/16/2013 11:48 AM * Full Code Date Activated Date Inactivated Comments 01/15/2013 5:47 PM 01/16/2013 5:42 PM Care Teams Trimmer Machine Relationship Specialty Start Date End Date Angeli Almendarez MD [address] [place] [phone] PCP - General 03/08/16
--- OUTSIDE RECORDS SUMMARY | 2025-04-07 14:12 | XMS_ITS | Clinical Summary ---
Author Organization [facility] Address [address] [place] [id number] Care Team Providers Care Assembler Musical Instruments Name Role Phone Jason Valderrama MD Primary [...] Protein, Total 7.2 6.0 - 8.4 g/dL [facility] Albumin 4.3 3.5 - 5.0 g/dL [facility] Calcium 9.2 8.5 - 10.5 mg/dL [facility] Bilirubin, Total 0.4 0.0 - 1.5 mg/dL [facility] Alkaline Phosphatase 69 40 - 150 U/L [facility] AST 22 7 - 40 U/L [facility] Glucose 78 65 - 100 mg/dL [facility] BUN 12 8 - 25 mg/dL [facility] Creatinine 0.65(L) 0.70 - 1.40 mg/dL [facility] Sodium 142 132 - 148 mmol/L [facility] Potassium 3.7 3.5 - 5.0 mmol/L [facility] Chloride 105 98 - 110 mmol/L [facility] CO2 23 23 - 32 mmol/L [facility] Anion Gap 14 0 - 15 mmol/L [facility] ALT 19 0 - 45 U/L [facility] eGFR- >60 [facility] eGFR-All Other Races >60 . [facility] Comment: eGFR (Estimated GFR) Units [...] us Junior Mancilla MD LABORATORY Final Result [facility] [address] [place] [address] * HIV AB 1&2 SCREEN (03/02/2014 11:31 AM EDT) HIV 1 & 2 Ab (EIA) Non Reactive NR [facility] Comment: If results are indeterminate or otherwise inconsistent with an individual's clinical presentation or risk profile for HIV infection a repeat specimen is requested. A repeat specimen is also recommended for any individual identified positive for the first time. (NOTE) HIV Information: [place] Rev. Code 3701.243(E): This information has been [...] Rosa Davis MD LABORATORY Final Resu lt [facility] [address] [place] [address] from Last 3 Months or Most Recently Relevant to Health Maintenance Insurance [address] [place] [address] [facility] MEDICAID Care Teams Assembler Musical Instruments Relationship Specialty Start Date End Date Jason Valderrama MD [address] [place] [address] PCP - General Internal Medicine 04/27/14
--- OUTSIDE RECORDS SUMMARY | 2025-04-07 14:12 | XMS_ITS ---
Author Organization [facility] Address [address] [place] [address] Care Team Providers Care Cartoon Designer Name Role Phone Gary Lees MD Unavailable [phone] Estrella Moreau MD Unavailable [phone] Nicol Harkins CNP Unavailable Abhishek Gutierrez MD Primary Care Provider [phone] Oncology Status:Enrolled (Active) Start date:07/25/2024 Enrollment date:07/25/2024 Enrollment reason:Referred by provider Continued Care and Services Coordination
--- OUTSIDE RECORDS SUMMARY | 2025-04-07 14:12 | XMS_ITS | Encounter Summary ---
Author Organization [facility] Address [address] [place] [id number] Care Team Providers Care Transportation Dispatcher Name Role Phone Jason Valderrama MD Primary Care Provid er Source Comments In the event this information is protected by the Federal Confidentiality of Alcohol and Drug AbusePatient Records regulations: The Federal rules restrict any use of the information to criminally investigate or prosecute any alcohol or drug abuse patient.[facility] Encounter Details Date Type Department Care Team (Late st Contact Info) Description 09/16/2015 Get Medical Advice Rheumatology [address] [id number] Steffi Farooq MD [facility] [place] [address] RE: Non-Urgent Medical Question Social [...] on filedocumented in this encounter Care Teams Transportation Dispatcher Relationship Specialty Start Date End Date Jason Valderrama MD [address] [place] [phone] PCP - General Internal Medicine 04/27/14 documented as of this encounter
--- OUTSIDE RECORDS SUMMARY | 2025-04-07 14:12 | XMS_ITS ---
Author Organization [facility] Address [address] [place] [address] Care Team Providers Care Oral Health Therapist Name Role Phone Gary Lees MD Unavailable [phone] Estrella Moreau MD Unavailable [phone] Nicol Harkins CNP Unavailable Abhishek Gutierrez MD Primary Care Provider [phone] Active Problems Problem Noted Date Diagnosed Date [...]
--- OUTSIDE RECORDS SUMMARY | 2025-04-07 14:21 | XMS_ITS | CCD ---
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 Name Role Phone Bernice Chavis Unavailable BERNICE [...] MOHAMMAD Admitting Unavailable SALINAS, MOHAMMAD Attending Unavailable BERNICE CHAVIS Primary Care Unavailable SALINAS, MOHAMMAD Admitting Unavailable SALINAS, MOHAMMAD Consulting Unavailable SALINAS, MOHAMMAD Attending Unavailable [facility] BERNICE Primary Care Unavailable SALINAS, MOHAMMAD Attending Unavailable SALINAS, MOHAMMAD Admitting Unavailable SALINAS, MOHAMMAD Consulting Unavailable PALMIRA, BERNICE Primary Care Unavailable SALINAS, MOHAMMAD Attending Unavailable SALINAS, MOHAMMAD Admitting Unavailable SALINAS, MOHAMMAD Consulting Unavailable [facility], BERNICE Primary Care Unavailable PALMIRA, BERNICE Primary Care Unavailable MISC, DR DOCTOR Consulting Unavailable MISC, DR DOCTOR Attending Unavailable MISC, DOCTOR Admitting Unavailable PALMIRA, BERNICE Primary Care Unavailable MISC, DOCTOR Consulting Unavailable MISC, DR FERNANDO Attending Unavailable MISC, DR FERNANDO Admitting Unavailable PAY ., DR MELARA Admitting Unavailable [facility] BERNICE Primary Care Unavailable PAY ., DR MELARA Attending Unavailable FLORES ., DEEPIKA Consulting Unavailable RAMESH, LAKHWINDER Consulting Unavailable SALINAS, MOHAMMAD Admitting Unavailable SALINAS, MOHAMMAD Attending Unavailable [facility] BERNICE Primary Care Unavailable SALINAS, MOHAMMAD Admitting Unavailable SALINAS, MOHAMMAD Consulting Unavailable SALINAS, MOHAMMAD Attending Unavailable [facility] BERNICE Primary Care Unavailable SALINAS, MOHAMMAD Admitting Unavailable SALINAS, MOHAMMAD Consulting Unavailable SALINAS, MOHAMMAD Attending Unavailable [facility] BERNICE Primary Care Unavailable SALINAS, MOHAMMAD Admitting Unavailable SALIANS, MOHAMMAD Consulting Unavailable SALINAS, MOHAMMAD Attending Unavailable [facility] BERNICE Primary Care Unavailable PAY ., DR MELARA Consulting Unavailable PAY ., DR MELARA Attending Unavailable [facility] BERNICE Primary Care Unavailable PAY ., DR MELARA Admitting Unavailable Palmira, Bernice Unavailable Vicente Tam Unavailable Palmira, DO Bernice N Primary Care Provider [phone] Palmira, DO Bernice N Attending Provider Palmira, Bernice N Primary Care Unavailable Jamarcus Esposito Attending Unavailable Jamarcus Esposito Admitting Unavailable Palmira DO, Bernice N Primary Care Provider [phone] Jamarcus Esposito APRN Attending Provider [phone] Palmira DO, Bernice N Primary Care Provider [phone] Bernice Chavis DO Attending Provider Allergies Allergy Classification Reported Allergen(s) Allergy Type Date of Onset Reaction(s) Facility (16 sources) Chlorhexidine; Translations: [Chlorhexidine] Drug Allergy 08-09-19 21 burning, Unknown Reaction, Unknown Reaction, burning [facility] [employer] Other (9 sources) Codeine Drug Allergy itchy [facility] [employer] Other (13 sources) Latex Propensity to adverse reactions 02-22-20 24 itchy, rash itching [facility] [employer] Other (12 sources) pollen, dust Propensity to adverse reactions 02-22-20 23 [facility] (1 source) Chlorhexidine Drug Allergy 10-10-19 15 [facility] (8 sources) Codeine Drug Allergy 04-07-20 12 Itching, Itching, itchy [facility] (1 source) Etoposide Drug Allergy 04-17-20 13 [facility] (2 sources) Latex Drug allergy (disorder) 11-14-19 13 [facility] (1 source) OPIODS; Translations: [OPIODS] Propensity to adverse reactions (disorder) 05-11-20 20 [facility] Medications Current Medications Medication Drug Class(es) Dates Sig (Normalized) Sig (Original) acalabrutinib 100 MG Oral Tablet [Calquence] (4 sources) take 1 tablet by mouth every twelve hours Calquence 100 MG 1 tablet Orally every [address] Red, [facility], [place], Chronic lymphocytic lukemia. Active Acalabrutinib Maleate (3 sources) Start: 12-17-2023 take 1 tablet by mouth every twelve hours Acalabrutinib Maleate 100 mg tablet Active 1 TAB PO Every 12 hours December 17, 2023 12:00am [employer] tablet Orally every 12 hrs; Note: Source Status: TakingDr. Red, [facility] [place], Chronic lymphocytic lukemia.; Provider: Palmira Weiss ( ) Complies with drug therapy Start: 12-17-2023 take 1 tablet by lindsay th every twelve hours Acalabrutinib Maleate 100 mg tablet Active 1 TAB PO Every 12 hours December 16, 2023 11:00pm [employer] tablet Orally every 12 hrs; Note: Source Status: TakingDr. Teofilo, [facility] [place], Chronic lymphocytic lukemia.; Provider: Palmira Weiss ( ) Start: 12-17-2023 take 1 tablet by lindsay th every twelve hours Acalabrutinib Maleate Active 1 TAB PO Every 12 hours December 17, 2023 12:00am [employer] tablet Orally every 12 hrs; Note: Source Status: TakingDr. Teofilo, [facility] [place], Chronic lymphocytic lukemia.; Provider: Palmira Weiss ( ) cetirizine hydrochloride 10 mg oral tablet (16 sources) Histamine-1 Receptor Antagonist Start: 04-26-2016 take 1 tablet by mouth once daily Cetirizine 10 mg Tablet Active 10 MG PO Daily July 19, 2020 1:00am Complies with drug therapy cholecalciferol 0.05 mg oral capsule (11 sources) Vitamin D Start: 07-19-2020 take 1 capsule by mouth once daily Cholecalciferol (Vitamin D3) (Vitamin D3) 50 mcg (2,000 unit) Capsule Active 50 MCG PO Daily July 19, 2020 1:00am Complies with drug therapy take 1 tablet by mouth once amos [...] Jun, Active ibuprofen 800 mg oral tablet (16 sources) Nonsteroidal Anti-inflammatory Drug Start: 07-19-2020 take 1 tablet by mouth every eight hours as needed for pain Ibuprofen 800 mg Tablet Active 800 MG PO Q8H as needed for Pain July 19, 2020 1:00am Complies with drug therapy Start: 08-22-2017 take 800 mg by mouth [...] 08/22/17 Status: Ordered Multivitamin (Multiple Vitamins) Tablet (6 sources) Start: 0 take 1 tablet by mouth once daily Multivitamin (Multiple Vitamins) Tablet Active 1 TAB PO Daily July 19, 2020 1:00am Complies with drug therapy Start: 07-19-2020 take 1 tablet by lindsay th once daily Multivitamin (Multiple Vitamins) Tablet Active 1 TAB PO Daily July 19, 2020 12:00am Start: 07-19-2020 take 1 tablet by lindsay th once daily Multivitamin (Multiple Vitamins) Tablet Active 1 TAB PO Daily July 19, 2020 1:00am Multivitamin Adult - (5 sources) Multivitamin Tomy lt - as directed Orally Active triamcinolone acetonide 5 mg/ml topical cream (1 source) Corticosteroid Start: 02-27-2025 Triamcinolone Acetonide 0.5 % cream Active 1 APPLIC TOPICAL Daily February 27, 2025 12:00am Complies with drug therapy Completed/Discontinued Medications Medication Drug Class(es) Dates Sig (Normalized) Sig (Original) fluticasone propionate 0.05 mg/actuat metered dose nasal spray (7 sources) Corticosteroid Start: 07-19-2020 End: 02-22-2024 Fluticasone Propionate 50 mcg/actuation Strong,Suspension Discontinued 1 SPRAY INTRANASAL Daily July 19, 2020 1:00am February 22, 2024 11:08am Start: 08-22-2017 Flonase 2 spra y(s), Nasal, BID, Refill(s) 0 Start Date: 08/22/17 Status: Ordered predniSONE 20 mg oral tablet (3 sources) Start: 12-19-2023 End: 02-22-2024 take 2 tablets by mouth once daily Prednisone 20 mg tablet Discontinued 40 MG PO Daily 16 02December 19, 2023 12:00am February 22, 2024 11:08am Start: 12-19-2023 End: 02-22-2024 take 40 mg by mouth once daily Prednisone Discontinued 40 MG PO Daily 16 02December 19, 2023 12:00am February 22, 2024 11:08am Problems Active Problems Problem Classification Problem Date Documented Date Episodic/Chronic Allergic reactions (12 sources) Allergy to tree nut; Translations: [Allergy to other foods] Onset: 06-13-2021 Resolved: 06-13-2021 Episodic Anxiety disorders (5 sources) Posttraumatic stress disorder; Translations: [Post-traumatic stress disorder, unspecified] 02-22-2024 Chronic Calculus of urinary tract (1 source) Kidney stone 08-22-2017 Episodic Diseases of white blood cells (6 sources) Lymphocytosis; Translations: [Lymphocytosis (symptomatic)] 07-19-2020 Chronic [...] remission] Onset: 03-17-2022 Chronic Malaise and fatigue (1 source) Fatigue; Translations: [Chronic fatigue, unspecified] 02-27-2025 Chronic Osteoarthritis (4 sources) Osteoarthritis; Translations: [Arthritis] 08-22-2017 Chronic Other connective tissue disease (1 [...] status] Onset: 09-27-2021 Resolved: 09-27-2021 Episodic Other skin disorders (1 source) Disorder of sweat gland; Translations: [Eccrine sweat disorder, unspecified] 02-27-2025 Episodic Other upper respiratory disease (9 sources) Allergic rhinitis; Translations: [Allergic rhinitis, unspecified] Chronic Spondylosis; intervertebral disc disorders; other back problems (17 sources) Sciatica; Translations: [Lumbago with sciatica, right side] Onset: 06-13-2021 Resolved: 06-13-2021 Episodic Past or Other Problems Problem Classification Problem Date Documented Da te Episodic/Chronic Nonmalignant breast conditions (1 source) Unspecified lump in the left breast, unspecified quadrant Onset: 09-27-2021 Resolved: 09-27-2021 Episodic Other aftercare (1 source) Other care home (current) drug therapy; Translations: [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 THERAPY] Onset: 03-17-2022 Episodic Other gastrointestinal disorders (4 sources) Diarrhea, unspecified; Translations: [DIARRHEA UNSPECIFIED] Onset: 03-16-2022 Episodic Unclassified (1 source) Well adult; Translations: [Full-term infant] 02-22-2024 Results Test Name Value Interpretation Reference Range Facility [facility] [id number] Kristan Guerrero 1975 F Date Provider Department Gracey 06/24/2024 [facility] Spe Pha Comprehensiv Family History Problem Relation Age of Onset Diabetes Mother Hypertension Mother Cancer Father Cancer Maternal Grandfather Stroke Maternal Grandfather Cancer Paternal Grandmother Family Status - Relation Status Age at Mother Father Maternal Grandfather Paternal Grandmother Reason for Visit and Comments: Specialty Pharmacy Note: Calquence [Other] Normal [facility] MM screening mammo BI w/CADo n 06-12-2024 MM screening mammo BI w/CAD [facility] [place] [address] Mammography Report Signed Patient: Ruthie Guerrero MR#: [id number] : 1975 Acct:[id number] Age/Sex: 48 / F ADM Date: 06/12/24 Loc: [place] Room: Type: [facility] CLI Attending Dr: Jamarcus Esposito DISTRICT PL[employer] ENGINEER Copies to: Bernice Chavis, DO Jamarcus Esposito [...] FOR THE NEXT MAMMOGRAM. Impression dictated by: Emiliano Avila M.D.06/12/2024 3:40 PM Dictation Location: [facility] Transcribed By: [facility] 06/12/24 1540 Dictated By: Emiliano Avila DO 06/12/24 1533 Signed By: 06/12/24 1540 Normal [facility] Mammography reportOrdered By : Emiliano Avila on 06-12-2024 Diagnostic imaging study [facility] [place] [address] Mammography Report Signed Patient: Ruthie Guerrero MR#: [id number] : 1975 Acct:[id number] Age/Sex: 48 / F ADM Date: 4 Loc: [place] Room: Type: REG CLI Attending Dr: Jamarcus Esposito [employer] ENGINEER Copies to: Bernice Chavis, DO Jamarcus Esposito APRN~ Ordering Provider: Jamarcus Esposito APRN Date [...] FOR THE NEXT MAMMOGRAM. Impression dictated by: Emiliano Avila M.D.06/12/2024 3:40 PM Dictation Location: [facility] Transcribed By: [facility] 06/12/24 1540 Dictated By: Emiliano Avila DO 06/12/24 1533 Signed By: 06/12/24 1540 [facility] Basophils Auto (Bld) [#/Vol] on 05-27-2024 Basophils (Bld) [#/Vol] Automated basophil count 0.0-0.1 [facility] Basophils/100 WBC Auto (Bld) on 05-27-2024 Basophils/100 WBC (Bld) Automated basophil % 0.2-2.0 [facility] Eosinophils/100 WBC Auto (Bl d)on 05-27-2024 Eosinophils/100 WBC (Bld) Automated eosinophil % 0.9-7.0 [facility] Erythrocyte distribution wid th Auto (RBC) [Ratio]on 05-27-2024 Erythrocyte distribution width (RBC) [Ratio] Erythrocyte distribution width [Ratio] by Automated count 11.0-15.0 [facility] Estimated glomerular filtrat ion rate (GFR) non- Americanon 05-27-2024 GFR/1.73 sq M.predicted among non-blacks MDRD (S/P/Bld) [Vol rate/Area] Estimated glomerular filtration rate (GFR) non- >=60 mL/min/1.73m 2 [facility] Globulin Calc (S) [Mass/Vol] on 05-27-2024 Globulin (S) [Mass/Vol] Serum globulin measurement by calculation (mass/volume) [facility] Hematocrit Auto (Bld) [Volum e fraction]on 05-27-2024 Hematocrit (Bld) [Volume fraction] Hematocrit [Volume Fraction] of Blood by Automated count 36.0-48.0 [facility] Hemoglobin [Mass/volume] in Bloodon 05-27-2024 Hemoglobin (Bld) [Mass/Vol] Hemoglobin [Mass/volume] in Blood 12.0-16.0 [facility] Laboratory - Chemistry and C hemistry - challengeon 05-27-2024 Albumin [Mass/Vol] 3.6 g/dL 3.4-5.0 [facility] ALP [Catalytic activity/Vol] 94 U/L 46-116 [facility] ALT [Catalytic activity/Vol] 25 U/L 14-59 [facility] AST [Catalytic activity/Vol] 14 U/L Low 15-37 [facility] Bilirubin [Mass/Vol] 0.7 mg/dL 0.2-1.0 [facility] Calcium [Mass/Vol] 9.3 mg/dL 8.5-10.1 [facility] Chloride [Moles/Vol] 107 mmol/L 98-107 [facility] CO2 [Moles/Vol] 24.5 mmol/L 21.0-32.0 [facility] Creatinine [Mass/Vol] 0.68 mg/dL 0.55-1.02 [facility] GFR/1.73 sq M.predicted MDRD (S/P/Bld) [Vol rate/Area] mL/min/{1.73_m2} >=60 mL/min/1.73m 2 [facility] Glucose [Mass/Vol] 98 mg/dL 74-106 [facility] LDH [Catalytic activity/Vol] 174 U/L 81-234 [facility] Potassium [Moles/Vol] 4.3 mmol/L 3.5-5.1 [facility] Protein [Mass/Vol] 7.4 g/dL 6.4-8.2 [facility] Sodium [Moles/Vol] 142 mmol/L 136-145 [facility] Urate [Mass/Vol] 3.4 mg/dL 2.6-6.0 [facility] Urea nitrogen [Mass/Vol] 7.0 mg/dL 7.0-18.0 [facility] Urea nitrogen/Creatinine [Mass ratio] 10.3 mg/mg [facility] Laboratory - Hematology and Cell countson 05-27-2024 Immature granulocytes/100 WBC (Bld) 0.3 % 0.0-0.5 [facility] Leukocytes [#/volume] correc antolin for nucleated erythrocytes in Blood by Automated counon 05-27-2024 WBC corrected for nucl RBC Auto (Bld) [#/Vol] Leukocytes [#/volume] corrected for nucleated erythrocytes in Blood by Automated coun 4.0-11.0 [facility] Lymphocytes Auto (Bld) [#/Vo l]on 05-27-2024 Lymphocytes (Bld) [#/Vol] Lymphocytes [#/volume] in Blood by Automated count 1.2-3.8 [facility] Lymphocytes/100 WBC Auto (Bl d)on 05-27-2024 Lymphocytes/100 WBC (Bld) Lymphocytes/100 leukocytes in Blood by Automated count 20.5-60.0 [facility] MCH Auto (RBC) [Entitic mass ]on 05-27-2024 MCH (RBC) [Entitic mass] MCH [Entitic mass] by Automated count 26.7-34.0 [facility] MCHC Auto (RBC) [Mass/Vol]on 05-27-2024 MCHC (RBC) [Mass/Vol] MCHC [Mass/volume] by Automated count 29.9-35.2 [facility] MCV Auto (RBC) [Entitic vol] on 05-27-2024 MCV (RBC) [Entitic vol] MCV [Entitic volume] by Automated count 81.0-99.0 [facility] Monocytes Auto (Bld) [#/Vol] on 05-27-2024 Monocytes (Bld) [#/Vol] Automated blood monocyte count 0.3-0.8 [facility] Monocytes/100 WBC Auto (Bld) on 05-27-2024 Monocytes/100 WBC (Bld) Automated monocyte % 1.7-12.0 [facility] Neutrophils Auto (Bld) [#/Vo l]on 05-27-2024 Neutrophils (Bld) [#/Vol] Neutrophils [#/volume] in Blood by Automated count 1.4-6.5 [facility] Neutrophils/100 WBC Auto (Bl d)on 05-27-2024 Neutrophils/100 WBC (Bld) Automated neutrophil % 43.0-75.0 [facility] No Panel Informationon 05-27 Eosinophils # (Auto) 0.1 10 3/uL 0.0-0.7 [facility] Immature Granulocyte # (Auto) 0.02 10 3/uL 0.00-0.03 [facility] Platelet mean volume Auto (B ld) [Entitic vol]on 05-27-2024 Platelet mean volume (Bld) [Entitic vol] Platelet mean volume [Entitic volume] in Blood by Automated count 9.5-13.5 [facility] Platelets Auto (Bld) [#/Vol] on 05-27-2024 Platelets (Bld) [#/Vol] Platelets [#/volume] in Blood by Automated count 150-450 [facility] RBC Auto (Bld) [#/Vol]on RBC (Bld) [#/Vol] Erythrocytes [#/volu me] in Blood by Automated count 4.20-5.40 [facility] Serum or plasma albumin/glob ulin mass ratioon 05-27-2024 Albumin/Globulin [Mass ratio] Serum or plasma albumin/globulin mass ratio [facility] Serum or plasma anion gap de terminationon 05-27-2024 Anion gap [Moles/Vol] Serum or plasma anion gap determination [facility] Basophils Auto (Bld) [#/Vol] on 01-29-2024 Basophils (Bld) [#/Vol] 0.0 10 3/uL 0.0-0.1 [facility] Basophils/100 WBC Auto (Bld) on 01-29-2024 Basophils/100 WBC (Bld) 0.7 % 0.2-2.0 [facility] Eosinophils/100 WBC Auto (Bl d)on 01-29-2024 Eosinophils/100 WBC (Bld) 2.0 % 0.9-7.0 [facility] Erythrocyte distribution wid th Auto (RBC) [Ratio]on 01-29-2024 Erythrocyte distribution width (RBC) [Ratio] 12.1 % 11.0-15.0 [facility] Estimated glomerular filtrat ion rate (GFR) non- Americanon 01-29-2024 GFR/1.73 sq M.predicted among non-blacks MDRD (S/P/Bld) [Vol rate/Area] mL/min/{1.73_m2} >=60 [facility] Globulin Calc (S) [Mass/Vol] on 01-29-2024 Globulin (S) [Mass/Vol] 3.7 g/dL [facility] Hematocrit Auto (Bld) [Volum e fraction]on 01-29-2024 Hematocrit (Bld) [Volume fraction] 44.7 % 36.0-48.0 [facility] Hemoglobin [Mass/volume] in Bloodon 01-29-2024 Hemoglobin (Bld) [Mass/Vol] 14.9 g/dL 12.0-16.0 [facility] Laboratory - Chemistry and C hemistry - challengeon 01-29-2024 Albumin [Mass/Vol] 3.7 g/dL 3.4-5.0 [facility] ALP [Catalytic activity/Vol] 87 U/L 46-116 [facility] ALT [Catalytic activity/Vol] 25 U/L 14-59 [facility] AST [Catalytic activity/Vol] 15 U/L 15-37 [facility] Bilirubin [Mass/Vol] 0.5 mg/dL 0.2-1.0 [facility] Calcium [Mass/Vol] 8.7 mg/dL 8.5-10.1 [facility] Chloride [Moles/Vol] 107 mmol/L 98-107 [facility] CO2 [Moles/Vol] 25.6 mmol/L 21.0-32.0 [facility] Creatinine [Mass/Vol] 0.53 mg/dL Low 0.55-1.02 [facility] GFR/1.73 sq M.predicted MDRD (S/P/Bld) [Vol rate/Area] mL/min/{1.73_m2} >=60 [facility] Glucose [Mass/Vol] 106 mg/dL 74-106 [facility] LDH [Catalytic activity/Vol] 167 U/L 81-234 [facility] Potassium [Moles/Vol] 4.1 mmol/L 3.5-5.1 [facility] Protein [Mass/Vol] 7.4 g/dL 6.4-8.2 [facility] Sodium [Moles/Vol] 142 mmol/L 136-145 [facility] Urate [Mass/Vol] 2.9 mg/dL 2.6-6.0 [facility] Urea nitrogen [Mass/Vol] 10.0 mg/dL 7.0-18.0 [facility] Urea nitrogen/Creatinine [Mass ratio] 18.9 mg/mg [facility] Laboratory - Hematology and Cell countson 01-29-2024 Immature granulocytes/100 WBC (Bld) 0.2 % 0.0-0.5 [facility] Leukocytes [#/volume] correc antolin for nucleated erythrocytes in Blood by Automated counon 01-29-2024 WBC corrected for nucl RBC Auto (Bld) [#/Vol] 6.0 10 3/uL 4.0-11.0 [facility] Lymphocytes Auto (Bld) [#/Vo l]on 01-29-2024 Lymphocytes (Bld) [#/Vol] 1.3 10 3/uL 1.2-3.8 [facility] Lymphocytes/100 WBC Auto (Bl d)on 01-29-2024 Lymphocytes/100 WBC (Bld) 21.2 % 20.5-60.0 [facility] MCH Auto (RBC) [Entitic mass ]on 01-29-2024 MCH (RBC) [Entitic mass] 30.1 pg 26.7-34.0 [facility] MCHC Auto (RBC) [Mass/Vol]on 01-29-2024 MCHC (RBC) [Mass/Vol] 33.3 g/dL 29.9-35.2 [facility] MCV Auto (RBC) [Entitic vol] on 01-29-2024 MCV (RBC) [Entitic vol] 90.3 fL 81.0-99.0 [facility] Monocytes Auto (Bld) [#/Vol] on 01-29-2024 Monocytes (Bld) [#/Vol] 0.6 10 3/uL 0.3-0.8 [facility] Monocytes/100 WBC Auto (Bld) on 01-29-2024 Monocytes/100 WBC (Bld) 9.8 % 1.7-12.0 [facility] Neutrophils Auto (Bld) [#/Vo l]on 01-29-2024 Neutrophils (Bld) [#/Vol] 4.0 10 3/uL 1.4-6.5 [facility] Neutrophils/100 WBC Auto (Bl d)on 01-29-2024 Neutrophils/100 WBC (Bld) 66.1 % 43.0-75.0 [facility] No Panel Informationon 01-28 Eosinophils # (Auto) 0.1 10 3/uL 0.0-0.7 [facility] Immature Granulocyte # (Auto) 0.01 10 3/uL 0.00-0.03 [facility] Platelet mean volume Auto (B ld) [Entitic vol]on 01-29-2024 Platelet mean volume (Bld) [Entitic vol] 11.5 fL 9.5-13.5 [facility] Platelets Auto (Bld) [#/Vol] on 01-29-2024 Platelets (Bld) [#/Vol] 197 10 3/uL 150-450 [facility] RBC Auto (Bld) [#/Vol]on RBC (Bld) [#/Vol] 4.95 10 6/uL 4.20-5.40 [facility] Serum or plasma albumin/glob ulin mass ratioon 01-29-2024 Albumin/Globulin [Mass ratio] 1.0 {ratio} [facility] Serum or plasma anion gap de terminationon 01-29-2024 Anion gap [Moles/Vol] 13.5 mmol/L [facility] CBC AUTO DIFFon 10-11-2022 BASO # 0.0 103/ul Normal 0.0-0.1 [facility] Comment on above: Performed By: #### U JORI, PHOS, CMP, LDH #### [facility] [address] [place] [address] Dr. Juliocesar Young Basophils/100 WBC (Bld) 0.4 % Normal 0.2-2.0 [facility] Comment on above: Performed By: #### U JORI, PHOS, CMP, LDH #### [facility] [address] [place] [address] Dr. Juliocesar Young EO # 0.1 103/ul Normal 0.0-0.7 [facility] Comment on above: Performed By: #### U JORI, PHOS, CMP, LDH #### [facility] [address] [place] [address] Dr. Juliocesar Young Eosinophils/100 WBC (Bld) 1.3 % Normal 0.9-7.0 [facility] Comment on above: Performed By: #### U JORI, PHOS, CMP, LDH #### [facility] [address] [place] [address] Dr. Juliocesar Young Erythrocyte distribution width (RBC) [Ratio] 12.4 % Normal 11.0-15.0 [facility] Comment on above: Performed By: #### U JORI, PHOS, CMP, LDH #### [facility] [address] [place] [address] Dr. Juliocesar Young Hematocrit (Bld) [Volume fraction] 39.8 % Normal 36.0-48.0 [facility] Comment on above: Performed By: #### U JORI, PHOS, CMP, LDH #### [facility] [address] [place] [address] Dr. Juliocesar Young Hemoglobin (Bld) [Mass/Vol] 13.5 g/dL Normal 12.0-16.0 [facility] Comment on above: Performed By: #### U JORI, PHOS, CMP, LDH #### [facility] [address] [place] [address] Dr. Juliocesar Young IG # 0.03 10e3/ul Normal 0.00-0.03 [facility] Comment on above: Performed By: #### U JORI, PHOS, CMP, LDH #### [facility] [address] [place] [address] Dr. Juliocesar Young IG % 0.4 % Normal 0.0-0.5 [facility] Comment on above: Performed By: #### U JORI, PHOS, CMP, LDH #### [facility] [address] [place] [address] Dr. Juliocesar Young LYMPH # 1.4 103/ul Normal 1.2-3.8 [facility] Comment on above: Performed By: #### U JORI, PHOS, CMP, LDH #### [facility] [address] [place] [address] Dr. Juliocesar Young Lymphocytes/100 WBC (Bld) 21.2 % Normal 20.5-60.0 [facility] Comment on above: Performed By: #### U JORI, PHOS, CMP, LDH #### [facility] [address] [place] [address] Dr. Juliocesar Young MANUAL DIFF REQ NO Normal [facility] Comment on above: Performed By: #### U JORI, PHOS, CMP, LDH #### [facility] [address] [place] [address] Dr. Juliocesar Young MCH (RBC) [Entitic mass] 31.3 pg Normal 26.7-34.0 [facility] Comment on above: Performed By: #### U JORI, PHOS, CMP, LDH #### [facility] [address] [place] [address] Dr. Juliocesar Young MCHC (RBC) [Mass/Vol] 33.9 g/dL Normal 29.9-35.2 [facility] Comment on above: Performed By: #### U JORI, PHOS, CMP, LDH #### [facility] [address] [place] [address] Dr. Juliocesar Young MCV (RBC) [Entitic vol] 92.3 fL Normal 81.0-99.0 [facility] Comment on above: Performed By: #### U JORI, PHOS, CMP, LDH #### [facility] [address] [address] [address] Juliocesar Young MONO # 0.7 103/ul Normal 0.3-0.8 [facility] Comment on above: Performed By: #### U JORI, PHOS, CMP, LDH #### [facility] [address] [place] [address] Dr. Juliocesar Young Monocytes/100 WBC (Bld) 11.0 % Normal 1.7-12.0 [facility] Comment on above: Performed By: #### U JORI, PHOS, CMP, LDH #### [facility] [address] [place] [address] Dr. Juliocesar Young NEUT # 4.4 103/ul Normal 1.4-6.5 [facility] Comment on above: Performed By: #### U JORI, PHOS, CMP, LDH #### [facility] [address] [place] [address] Dr. Juliocesar Young Neutrophils/100 WBC (Bld) 65.7 % Normal 43.0-75.0 [facility] Comment on above: Performed By: #### U JORI, PHOS, CMP, LDH #### [facility] [address] [place] [address] Dr. Juliocesar Young Platelet mean volume (Bld) [Entitic vol] 10.8 fL Normal 9.5-13.5 [facility] Comment on above: Performed By: #### U JORI, PHOS, CMP, LDH #### [facility] [address] [place] [address] Dr. Juliocesar Young PLT 177 103/ul Normal 150-450 [facility] Comment on above: Performed By: #### U JORI, PHOS, CMP, LDH #### [facility] [address] [place] [address] Dr. Juliocesar Young RBC 4.31 106/ul Normal 4.20-5.40 [facility] Comment on above: Performed By: #### U JORI, PHOS, CMP, LDH #### [facility] [address] [address] [address] Juliocesar Young WBC 6.7 103/ul Normal 4.0-11.0 [facility] Comment on above: Performed By: #### U JORI, PHOS, CMP, LDH #### [facility] [address] [place] [address] Dr. Juliocesar Young LDHon 10-11-2022 LDH 133 U/L Normal 81-234 [facility] Comment on above: Performed By: #### C MP #### [facility] [address] [place] [address] Dr. Juliocesar Young PHOSPHORUSon 10-11-2022 Phosphate [Mass/Vol] 3.5 mg/dL Normal 2.6-4.7 [facility] Comment on above: Performed By: #### O VAPE #### [facility] [address] [place] [address] Dr. Juliocesar Young PROF 14(COMP METB)on 023 Albumin [Mass/Vol] 3.4 g/dL Normal 3.4-5.0 [facility] Comment on above: Performed By: #### C MP #### [facility] [address] [place] [address] Dr. Juliocesar Young Albumin/Globulin [Mass ratio] 1.2 {ratio} Normal [facility] Comment on above: Performed By: #### C MP #### [facility] [address] [place] [address] Dr. Juliocesar Young ALP [Catalytic activity/Vol] 85 U/L Normal 46-116 [facility] Comment on above: Performed By: #### C MP #### [facility] [address] [place] [address] Dr. Juliocesar Young ALT [Catalytic activity/Vol] 18 U/L Normal 14-59 [facility] Comment on above: Performed By: #### C MP #### [facility] [address] [place] [address] Dr. Juliocesar Young Anion gap [Moles/Vol] 10.1 mmol/L Normal [facility] Comment on above: Performed By: #### C MP #### [facility] [address] [address] [address] Juliocesar Young AST [Catalytic activity/Vol] 12 U/L Critically low 15-37 [facility] Comment on above: Performed By: #### C MP #### [facility] [address] [address] [address] Juliocesar Young Bilirubin [Mass/Vol] 0.4 mg/dL Normal 0.2-1.0 [facility] Comment on above: Performed By: #### C MP #### [facility] [address] [address] [address] Juliocesar Young Calcium [Mass/Vol] 8.5 mg/dL Normal 8.5-10.1 [facility] Comment on above: Performed By: #### C MP #### [facility] [address] [address] [address] Juliocesar Young Chloride [Moles/Vol] 110 mmol/L Critically high 98-107 [facility] Comment on above: Performed By: #### C MP #### [facility] [address] [address] [address] Juliocesar Young CO2 [Moles/Vol] 27.9 mmol/L Normal 21.0-32.0 [facility] Comment on above: Performed By: #### C MP #### [facility] [address] [address] [address] Juliocesar Young Creatinine [Mass/Vol] 0.60 mg/dL Normal 0.55-1.02 [facility] Comment on above: Performed By: #### C MP #### [facility] [address] [address] [address] Juliocesar Young EGFR-AF SYRIAN >60 Normal >=60 [facility] Comment on above: Performed By: #### C MP #### [facility] [address] [address] [address] Juliocesar Young EGFR-NON AF SYRIAN >60 Normal >=60 [facility] Comment on above: Performed By: #### C MP #### [facility] [address] [address] [address] Juliocesar Young Globulin (S) [Mass/Vol] 2.9 g/dL Normal [facility] Comment on above: Performed By: #### C MP #### [facility] [address] [address] [address] Juliocesar Young Glucose [Mass/Vol] 79 mg/dL Normal 74-106 [facility] Comment on above: Performed By: #### C MP #### [facility] [address] [address] [address] Juliocesar Young Potassium [Moles/Vol] 4.0 mmol/L Normal 3.5-5.1 [facility] Comment on above: Performed By: #### C MP #### [facility] [address] [address] [address] Juliocesar Young Protein [Mass/Vol] 6.3 g/dL Critically low 6.4-8.2 [facility] Comment on above: Performed By: #### C MP #### [facility] [address] [place] [address] Dr. Juliocesar Young Sodium [Moles/Vol] 144 mmol/L Normal 136-145 [facility] Comment on above: Performed By: #### C MP #### [facility] [address] [place] [address] Dr. Juliocesar Young Urea nitrogen [Mass/Vol] 9.0 mg/dL Normal 7.0-18.0 [facility] Comment on above: Performed By: #### C MP #### [facility] [address] [address] [address] Juliocesar Young Urea nitrogen/Creatinine [Mass ratio] 15.0 mg/mg Normal [facility] Comment on above: Performed By: #### C MP #### [facility] [address] [place] [address] Dr. Juliocesar Young URIC ACID SERUMon 10-11-2022 Urate [Mass/Vol] 3.1 mg/dL Normal 2.6-6.0 [facility] Comment on above: Performed By: #### C MP #### [facility] [address] [address] [address] Juliocesar Young CBC AUTO DIFFon 07-18-2022 BASO # 0.1 103/ul Normal 0.0-0.1 [facility] Comment on above: Performed By: #### O VAPE #### [facility] [address] [place] [address] Dr. Juliocesar Young Basophils/100 WBC (Bld) 0.6 % Normal 0.2-2.0 [facility] Comment on above: Performed By: #### O VAPE #### [facility] [address] [place] [address] Dr. Juliocesar Young EO # 0.1 103/ul Normal 0.0-0.7 [facility] Comment on above: Performed By: #### O VAPE #### [facility] [address] [place] [address] Dr. Juliocesar Young Eosinophils/100 WBC (Bld) 1.4 % Normal 0.9-7.0 [facility] Comment on above: Performed By: #### O VAPE #### [facility] [address] [place] [address] Dr. Juliocesar Young Erythrocyte distribution width (RBC) [Ratio] 13.1 % Normal 11.0-15.0 [facility] Comment on above: Performed By: #### O VAPE #### [facility] [address] [place] [address] Dr. Juliocesar Young Hematocrit (Bld) [Volume fraction] 41.5 % Normal 36.0-48.0 [facility] Comment on above: Performed By: #### O VAPE #### [facility] [address] [place] [address] Dr. Juliocesar Young Hemoglobin (Bld) [Mass/Vol] 14.2 g/dL Normal 12.0-16.0 [facility] Comment on above: Performed By: #### O VAPE #### [facility] [address] [place] [address] Dr. Juliocesar Young IG # 0.03 10e3/ul Normal 0.00-0.03 [facility] Comment on above: Performed By: #### O VAPE #### [facility] [address] [place] [address] Dr. Juliocesar Young IG % 0.4 % Normal 0.0-0.5 [facility] Comment on above: Performed By: #### O VAPE #### [facility] [address] [place] [address] Dr. Juliocesar Young LYMPH # 1.2 103/ul Normal 1.2-3.8 [facility] Comment on above: Performed By: #### O VAPE #### [facility] [address] [place] [address] Dr. Juliocesar Young Lymphocytes/100 WBC (Bld) 15.4 % Critically low 20.5-60.0 [facility] Comment on above: Performed By: #### O VAPE #### [facility] [address] [place] [address] Dr. Juliocesar Young MANUAL DIFF REQ NO Normal [facility] Comment on above: Performed By: #### O VAPE #### [facility] [address] [place] [address] Dr. Juliocesar Young MCH (RBC) [Entitic mass] 31.0 pg Normal 26.7-34.0 [facility] Comment on above: Performed By: #### O VAPE #### [facility] [address] [place] [address] Dr. Juliocesar Young MCHC (RBC) [Mass/Vol] 34.2 g/dL Normal 29.9-35.2 [facility] Comment on above: Performed By: #### O VAPE #### [facility] [address] [place] [address] Dr. Juliocesar Young MCV (RBC) [Entitic vol] 90.6 fL Normal 81.0-99.0 [facility] Comment on above: Performed By: #### O VAPE #### [facility] [address] [place] [address] Dr. Juliocesar Young MONO # 0.8 103/ul Normal 0.3-0.8 [facility] Comment on above: Performed By: #### O VAPE #### [facility] [address] [place] [address] Dr. Juliocesar Young Monocytes/100 WBC (Bld) 9.9 % Normal 1.7-12.0 [facility] Comment on above: Performed By: #### O VAPE #### [facility] [address] [place] [address] Dr. Juliocesar Young NEUT # 5.7 103/ul Normal 1.4-6.5 [facility] Comment on above: Performed By: #### O VAPE #### [facility] [address] [place] [address] Dr. Juliocesar Young Neutrophils/100 WBC (Bld) 72.3 % Normal 43.0-75.0 [facility] Comment on above: Performed By: #### O VAPE #### [facility] [address] [place] [address] Dr. Juliocesar Young Platelet mean volume (Bld) [Entitic vol] 10.7 fL Normal 9.5-13.5 [facility] Comment on above: Performed By: #### O VAPE #### [facility] [address] [place] [address] Dr. Juliocesar Young PLT 199 103/ul Normal 150-450 [facility] Comment on above: Performed By: #### O VAPE #### [facility] [address] [place] [address] Dr. Juliocesar Young RBC 4.58 106/ul Normal 4.20-5.40 [facility] Comment on above: Performed By: #### O VAPE #### [facility] [address] [place] [address] Dr. Juliocesar Young WBC 7.9 103/ul Normal 4.0-11.0 [facility] Comment on above: Performed By: #### O VAPE #### [facility] [address] [place] [address] Dr. Juliocesar Young LDHon 07-18-2022 LDH 169 U/L Normal 81-234 [facility] Comment on above: Performed By: #### L ACTFQ #### [facility] [address] [place] [address] Dr. Juliocesar Young PHOSPHORUSon 07-18-2022 Phosphate [Mass/Vol] 3.5 mg/dL Normal 2.6-4.7 [facility] Comment on above: Performed By: #### L ACTFQ #### [facility] [address] [place] [address] Dr. Juliocesar Young PROF 14(COMP METB)on 022 Albumin [Mass/Vol] 3.5 g/dL Normal 3.4-5.0 [facility] Comment on above: Performed By: #### L ACTFQ #### [facility] [address] [place] [address] Dr. Juliocesar Young Albumin/Globulin [Mass ratio] 1.0 {ratio} Normal [facility] Comment on above: Performed By: #### L ACTFQ #### [facility] [address] [place] [address] Dr. Juliocesar Young ALP [Catalytic activity/Vol] 103 U/L Normal 46-116 [facility] Comment on above: Performed By: #### L ACTFQ #### [facility] [address] [place] [address] Dr. Juliocsear Young ALT [Catalytic activity/Vol] 10 U/L Critically low 14-59 [facility] Comment on above: Performed By: #### L ACTFQ #### [facility] [address] [place] [address] Dr. Juliocesar Young Anion gap [Moles/Vol] 11.9 mmol/L Normal [facility] Comment on above: Performed By: #### L ACTFQ #### [facility] [address] [place] [address] Dr. Juliocesar Young AST [Catalytic activity/Vol] 11 U/L Critically low 15-37 [facility] Comment on above: Performed By: #### L ACTFQ #### [facility] [address] [place] [address] Dr. Juliocesar Young Bilirubin [Mass/Vol] 0.4 mg/dL Normal 0.2-1.0 [facility] Comment on above: Performed By: #### L ACTFQ #### [facility] [address] [address] [address] Juliocesar Young Calcium [Mass/Vol] 8.7 mg/dL Normal 8.5-10.1 [facility] Comment on above: Performed By: #### L ACTFQ #### [facility] [address] [address] [address] Juliocesar Young Chloride [Moles/Vol] 105 mmol/L Normal 98-107 [facility] Comment on above: Performed By: #### L ACTFQ #### [facility] [address] [place] [address] Dr. Juliocesar Young CO2 [Moles/Vol] 25.1 mmol/L Normal 21.0-32.0 [facility] Comment on above: Performed By: #### L ACTFQ #### [facility] [address] [place] [address] Dr. Juliocesar Young Creatinine [Mass/Vol] 0.68 mg/dL Normal 0.55-1.02 [facility] Comment on above: Performed By: #### L ACTFQ #### [facility] [address] [place] [address] Dr. Juliocesar Young EGFR-AF SYRIAN >60 Normal >=60 [facility] Comment on above: Performed By: #### L ACTFQ #### [facility] [address] [place] [address] Dr. Juliocesar Young EGFR-NON AF SYRIAN >60 Normal >=60 [facility] Comment on above: Performed By: #### L ACTFQ #### [facility] [address] [address] [address] Juliocesar Young Globulin (S) [Mass/Vol] 3.6 g/dL Normal [facility] Comment on above: Performed By: #### L ACTFQ #### [facility] [address] [place] [address] Dr. Juliocesar Young Glucose [Mass/Vol] 101 mg/dL Normal 74-[address] [facility] Comment on above: Performed By: #### L ACTFQ #### [facility] [address] [place] [address] Dr. Juliocesar Young Potassium [Moles/Vol] 4.0 mmol/L Normal 3.5-5.1 [facility] Comment on above: Performed By: #### L ACTFQ #### [facility] [address] [place] [address] Dr. Juliocesar Young Protein [Mass/Vol] 7.1 g/dL Normal 6.4-8.[address] [facility] Comment on above: Performed By: #### L ACTFQ #### [facility] [address] [place] [address] Dr. Juliocesar Young Sodium [Moles/Vol] 138 mmol/L Normal 136-145 [facility] Comment on above: Performed By: #### L ACTFQ #### [facility] [address] [place] [address] Dr. Juliocesar Young Urea nitrogen [Mass/Vol] 9.0 mg/dL Normal 7.0-18.0 [facility] Comment on above: Performed By: #### L ACTFQ #### [facility] [address] [place] [address] Dr. Juliocesar Young Urea nitrogen/Creatinine [Mass ratio] 13.2 mg/mg Normal [facility] Comment on above: Performed By: #### L ACTFQ #### [facility] [address] [place] [address] Dr. Juliocesar Young URIC ACID SERUMon 07-18-2022 Urate [Mass/Vol] 2.5 mg/dL Critically low 2.6-6.0 [facility] Comment on above: Performed By: #### O VAPE #### [facility] [address] [place] [address] Dr. Juliocesar Young CBC AUTO DIFFon 04-04-2022 BASO # 0.0 103/ul Normal 0.0-0.1 [facility] Comment on above: Performed By: #### U JORI, PHOS, CMP, LDH #### [facility] [address] [place] [address] Dr. Juliocesar Young Basophils/100 WBC (Bld) 0.7 % Normal 0.2-2.0 [facility] Comment on above: Performed By: #### U JORI, PHOS, CMP, LDH #### [facility] [address] [place] [address] Dr. Juliocesar Young EO # 0.1 103/ul Normal 0.0-0.7 [facility] Comment on above: Performed By: #### U JORI, PHOS, CMP, LDH #### [facility] [address] [place] [address] Dr. Juliocesar Young Eosinophils/100 WBC (Bld) 2.5 % Normal 0.9-7.0 [facility] Comment on above: Performed By: #### U JORI, PHOS, CMP, LDH #### [facility] [address] [place] [address] Dr. Juliocesar Young Erythrocyte distribution width (RBC) [Ratio] 14.1 % Normal 11.0-15.0 [facility] Comment on above: Performed By: #### U JORI, PHOS, CMP, LDH #### [facility] [address] [place] [address] Dr. Juliocesar Young Hematocrit (Bld) [Volume fraction] 43.7 % Normal 36.0-48.0 [facility] Comment on above: Performed By: #### U JORI, PHOS, CMP, LDH #### [facility] [address] [place] [address] Dr. Juliocesar Young Hemoglobin (Bld) [Mass/Vol] 14.5 g/dL Normal 12.0-16.0 [facility] Comment on above: Performed By: #### U JORI, PHOS, CMP, LDH #### [facility] [address] [place] [address] Dr. Juliocesar Young IG # 0.01 10e3/ul Normal 0.00-0.03 [facility] Comment on above: Performed By: #### U JORI, PHOS, CMP, LDH #### [facility] [address] [place] [address] Dr. Juliocesar Young IG % 0.2 % Normal 0.0-0.5 [facility] Comment on above: Performed By: #### U JORI, PHOS, CMP, LDH #### [facility] [address] [place] [address] Dr. Juliocesar Young LYMPH # 1.2 103/ul Normal 1.2-3.8 [facility] Comment on above: Performed By: #### U JORI, PHOS, CMP, LDH #### [facility] [address] [place] [address] Dr. Juliocesar Young Lymphocytes/100 WBC (Bld) 26.6 % Normal 20.5-60.0 [facility] Comment on above: Performed By: #### U JORI, PHOS, CMP, LDH #### [facility] [address] [place] [address] Dr. Juliocesar Young MANUAL DIFF REQ NO Normal [facility] Comment on above: Performed By: #### U JORI, PHOS, CMP, LDH #### [facility] [address] [place] [address] Dr. Juliocesar Young MCH (RBC) [Entitic mass] 30.0 pg Normal 26.7-34.0 [facility] Comment on above: Performed By: #### U JORI, PHOS, CMP, LDH #### [facility] [address] [place] [address] Dr. Juliocesar Young MCHC (RBC) [Mass/Vol] 33.2 g/dL Normal 29.9-35.2 [facility] Comment on above: Performed By: #### U JOIR, PHOS, CMP, LDH #### [facility] [address] [place] [address] Dr. Juliocesar Young MCV (RBC) [Entitic vol] 90.5 fL Normal 81.0-99.0 [facility] Comment on above: Performed By: #### U JORI, PHOS, CMP, LDH #### [facility] [address] [place] [address] Dr. Juliocesar Young MONO # 0.6 103/ul Normal 0.3-0.8 [facility] Comment on above: Performed By: #### U JORI, PHOS, CMP, LDH #### [facility] [address] [address] [address] Juliocesar Young Monocytes/100 WBC (Bld) 13.0 % Critically high 1.7-12.0 [facility] Comment on above: Performed By: #### U JORI, PHOS, CMP, LDH #### [facility] [address] [place] [address] Dr. Juliocesar Young NEUT # 2.5 103/ul Normal 1.4-6.5 [facility] Comment on above: Performed By: #### U JORI, PHOS, CMP, LDH #### [facility] [address] [place] [address] Dr. Juliocesar Young Neutrophils/100 WBC (Bld) 57.0 % Normal 43.0-75.0 [facility] Comment on above: Performed By: #### U JORI, PHOS, CMP, LDH #### [facility] [address] [place] [address] Dr. Juliocesar Young Platelet mean volume (Bld) [Entitic vol] 11.0 fL Normal 9.5-13.5 [facility] Comment on above: Performed By: #### U JORI, PHOS, CMP, LDH #### [facility] [address] [place] [address] Dr. Juliocesar Young PLT 156 103/ul Normal 150-450 [facility] Comment on above: Performed By: #### U JORI, PHOS, CMP, LDH #### [facility] [address] [place] [address] Dr. Juliocesar Young RBC 4.83 106/ul Normal 4.20-5.40 [facility] Comment on above: Performed By: #### U JORI, PHOS, CMP, LDH #### [facility] [address] [place] [address] Dr. Juliocesar Young WBC 4.3 103/ul Normal 4.0-11.0 [facility] Comment on above: Performed By: #### U JORI, PHOS, CMP, LDH #### [facility] [address] [place] [address] Dr. Juliocesar Young LDHon 04-04-2022 LDH 256 U/L Critically high 81-234 [facility] Comment on above: Performed By: #### U JORI, PHOS, CMP, LDH #### [facility] [address] [place] [address] Dr. Juliocesar Young PHOSPHORUSon 04-04-2022 Phosphate [Mass/Vol] 3.4 mg/dL Normal 2.6-4.7 [facility] Comment on above: Performed By: #### U JORI, PHOS, CMP, LDH #### [facility] [address] [address] [address] Juliocesar Young PROF 14(COMP METB)on 022 Albumin [Mass/Vol] 3.6 g/dL Normal 3.4-5.0 [facility] Comment on above: Performed By: #### U JORI, PHOS, CMP, LDH #### [facility] [address] [place] [address] Dr. Juliocesar Young Albumin/Globulin [Mass ratio] 1.2 {ratio} Normal [facility] Comment on above: Performed By: #### U JORI, PHOS, CMP, LDH #### [facility] [address] [place] [address] Dr. Juliocesar Young ALP [Catalytic activity/Vol] 66 U/L Normal 46-116 [facility] Comment on above: Performed By: #### U JORI, PHOS, CMP, LDH #### [facility] [address] [place] [address] Dr. Juliocesar Young ALT [Catalytic activity/Vol] 38 U/L Normal 14-59 [facility] Comment on above: Performed By: #### U JORI, PHOS, CMP, LDH #### [facility] [address] [place] [address] Dr. Juliocesar Young Anion gap [Moles/Vol] 14.7 mmol/L Normal [facility] Comment on above: Performed By: #### U JORI, PHOS, CMP, LDH #### [facility] [address] [place] [address] Dr. Juliocesar Young AST [Catalytic activity/Vol] 24 U/L Normal 15-37 [facility] Comment on above: Performed By: #### U JORI, PHOS, CMP, LDH #### [facility] [address] [address] [address] Juliocesar Young Bilirubin [Mass/Vol] 0.6 mg/dL Normal 0.2-1.0 [facility] Comment on above: Performed By: #### U JORI, PHOS, CMP, LDH #### [facility] [address] [address] [address] Juliocesar Young Calcium [Mass/Vol] 8.8 mg/dL Normal 8.5-10.1 [facility] Comment on above: Performed By: #### U JORI, PHOS, CMP, LDH #### [facility] [address] [place] [address] Dr. Juliocesar Young Chloride [Moles/Vol] 108 mmol/L Critically high 98-107 [facility] Comment on above: Performed By: #### U JORI, PHOS, CMP, LDH #### [facility] [address] [address] [address] Juliocesar Young CO2 [Moles/Vol] 21.5 mmol/L Normal 21.0-32.0 [facility] Comment on above: Performed By: #### U JORI, PHOS, CMP, LDH #### [facility] [address] [place] [address] Dr. Juliocesar Young Creatinine [Mass/Vol] 0.63 mg/dL Normal 0.55-1.02 [facility] Comment on above: Performed By: #### U JORI, PHOS, CMP, LDH #### [facility] [address] [address] [address] Juliocesar Young EGFR-AF SYRIAN >60 Normal >=60 [facility] Comment on above: Performed By: #### U JORI, PHOS, CMP, LDH #### [facility] [address] [address] [address] Juliocesar Young EGFR-NON AF SYRIAN >60 Normal >=60 [facility] Comment on above: Performed By: #### U JORI, PHOS, CMP, LDH #### [facility] [address] [address] [address] Juliocesar Young Globulin (S) [Mass/Vol] 3.1 g/dL Normal [facility] Comment on above: Performed By: #### U JORI, PHOS, CMP, LDH #### [facility] [address] [address] [address] Juliocesar Young Glucose [Mass/Vol] 116 mg/dL Critically high 74-106 [facility] Comment on above: Performed By: #### U JORI, PHOS, CMP, LDH #### [facility] [address] [address] [address] Juliocesar Young Potassium [Moles/Vol] 4.2 mmol/L Normal 3.5-5.1 [facility] Comment on above: Performed By: #### U JORI, PHOS, CMP, LDH #### [facility] [address] [place] [address] Dr. Juliocesar Young Protein [Mass/Vol] 6.7 g/dL Normal 6.4-8.2 [facility] Comment on above: Performed By: #### U JORI, PHOS, CMP, LDH #### [facility] [address] [address] [address] Juliocesar Young Sodium [Moles/Vol] 140 mmol/L Normal 136-145 [facility] Comment on above: Performed By: #### U JORI, PHOS, CMP, LDH #### [facility] [address] [address] [address] Juliocesar Young Urea nitrogen [Mass/Vol] 7.0 mg/dL Normal 7.0-18.0 [facility] Comment on above: Performed By: #### U JORI, PHOS, CMP, LDH #### [facility] [address] [place] [address] Dr. Juliocesar Young Urea nitrogen/Creatinine [Mass ratio] 11.1 mg/mg Normal [facility] Comment on above: Performed By: #### U JORI, PHOS, CMP, LDH #### [facility] [address] [place] [address] Dr. Juliocesar Young URIC ACID SERUMon 04-04-2022 Urate [Mass/Vol] 3.2 mg/dL Normal 2.6-6.0 [facility] Comment on above: Performed By: #### U JORI, PHOS, CMP, LDH #### [facility] [address] [address] [address] Juliocesar Young OVA AND PARASITE EXAMINATION on 03-22-2022 Ova + Parasite Exam Final report Normal [facility] Comment on above: Result Comment: Thes e results were obtained using wet preparation(s) and trichrome stained smear. This test does not include testing for Cryptosporidium parvum, Cyclospora, or Microsporidia. Performed By: #### O VAPE #### [facility] [address] [place] [address] Dr. Juliocesar Young Result 1 Comment Normal [facility] Comment on above: Result Comment: No o va, cysts, or parasites seen. . One negative specimen does not rule out the possibility of a parasitic infection. Performed By: #### O VAPE #### [facility] [address] [place] [address] Dr. Juliocesar Young LACTOFERRIN FECAL QUANTon Lactoferrin, Fecal, Quant. <1.00 Normal 0.00-7.24 [facility] Comment on above: Result Comment: Re [...] (IBS). Performed By: #### L ACTFQ #### [facility] [address] [address] [address] Juliocesar Young STOOL CULTUREon 03-20-2022 Campylobacter Culture Final report Normal [facility] Comment on above: Performed By: #### U JORI, PHOS, CMP, LDH #### [facility] [address] [place] [address] Dr. Juliocesar Young E coli Shiga Toxin EIA Negative Normal Negative [facility] Comment on above: Performed By: #### U JORI, PHOS, CMP, LDH #### [facility] [address] [place] [address] Dr. Juliocesar Young Result 1 Comment Normal [facility] Comment on above: Result Comment: No S almonella or Shigella recovered. Performed By: #### U JORI, PHOS, CMP, LDH #### [facility] [address] [place] [address] Dr. Juliocesar Young Result Comment: No C ampylobacter species isolated. Salmonella/Shigella Screen Final report Normal [facility] Comment on above: Performed By: #### U JORI, PHOS, CMP, LDH #### [facility] [address] [place] [address] Dr. Juliocesar Young C. DIFF PCRon 03-16-2022 C. DIFFICILE PCR Negative Normal NEGATIVE [facility] Comment on above: Performed By: #### L ACTFQ #### [facility] [address] [place] [address] Dr. Juliocesar Young OCC BLD IMMUNO SCREENon 03-06 OCCULT BLOOD Negative Normal NEGATIVE [facility] Comment on above: Performed By: #### U JORI, PHOS, CMP, LDH #### [facility] [address] [place] [address] Dr. Juliocesar Young CBC AUTO DIFFon 03-15-2022 BASO # 0.1 103/ul Normal 0.0-0.1 [facility] Comment on above: Performed By: #### O VAPE #### [facility] [address] [place] [address] Dr. Juliocesar Young Basophils/100 WBC (Bld) 1.0 % Normal 0.2-2.0 [facility] Comment on above: Performed By: #### O VAPE #### [facility] [address] [place] [address] Dr. Juliocesar Young EO # 0.1 103/ul Normal 0.0-0.7 [facility] Comment on above: Performed By: #### O VAPE #### [facility] [address] [place] [address] Dr. Juliocesar Young Eosinophils/100 WBC (Bld) 2.2 % Normal 0.9-7.0 [facility] Comment on above: Performed By: #### O VAPE #### [facility] [address] [place] [address] Dr. Juliocesar Young Erythrocyte distribution width (RBC) [Ratio] 13.1 % Normal 11.0-15.0 [facility] Comment on above: Performed By: #### O VAPE #### [facility] [address] [place] [address] Dr. Juliocesar Young Hematocrit (Bld) [Volume fraction] 41.0 % Normal 36.0-48.0 [facility] Comment on above: Performed By: #### O VAPE #### [facility] [address] [place] [address] Dr. Juliocesar Young Hemoglobin (Bld) [Mass/Vol] 13.9 g/dL Normal 12.0-16.0 [facility] Comment on above: Performed By: #### O VAPE #### [facility] [address] [place] [address] Dr. Juliocesar Young IG # 0.01 10e3/ul Normal 0.00-0.03 [facility] Comment on above: Performed By: #### O VAPE #### [facility] [address] [place] [address] Dr. Juliocesar Young IG % 0.2 % Normal 0.0-0.5 [facility] Comment on above: Performed By: #### O VAPE #### [facility] [address] [place] [address] Dr. Juliocesar Young LYMPH # 1.0 103/ul Critically low 1.2-3.8 [facility] Comment on above: Performed By: #### O VAPE #### [facility] [address] [place] [address] Dr. Juliocesar Young Lymphocytes/100 WBC (Bld) 19.4 % Critically low 20.5-60.0 [facility] Comment on above: Performed By: #### O VAPE #### [facility] [address] [place] [address] Dr. Juliocesar Young MANUAL DIFF REQ NO Normal [facility] Comment on above: Performed By: #### O VAPE #### [facility] [address] [place] [address] Dr. Juliocesar Young MCH (RBC) [Entitic mass] 30.1 pg Normal 26.7-34.0 [facility] Comment on above: Performed By: #### O VAPE #### [facility] [address] [place] [address] Dr. Juliocesar Young MCHC (RBC) [Mass/Vol] 33.9 g/dL Normal 29.9-35.2 [facility] Comment on above: Performed By: #### O VAPE #### [facility] [address] [place] [address] Dr. Juliocesar Young MCV (RBC) [Entitic vol] 88.7 fL Normal 81.0-99.0 [facility] Comment on above: Performed By: #### O VAPE #### [facility] [address] [place] [address] Dr. Juliocesar Young MONO # 0.8 103/ul Normal 0.3-0.8 [facility] Comment on above: Performed By: #### O VAPE #### [facility] [address] [place] [address] Dr. Juliocesar Young Monocytes/100 WBC (Bld) 15.2 % Critically high 1.7-12.0 [facility] Comment on above: Performed By: #### O VAPE #### [facility] [address] [place] [address] Dr. Juliocesar Young NEUT # 3.1 103/ul Normal 1.4-6.5 [facility] Comment on above: Performed By: #### O VAPE #### [facility] [address] [place] [address] Dr. Juliocesar Young Neutrophils/100 WBC (Bld) 62.0 % Normal 43.0-75.0 [facility] Comment on above: Performed By: #### O VAPE #### [facility] [address] [address] [address] Juliocesar Young Platelet mean volume (Bld) [Entitic vol] 10.9 fL Normal 9.5-13.5 [facility] Comment on above: Performed By: #### O VAPE #### [facility] [address] [address] [address] Juliocesar Young PLT 175 103/ul Normal 150-450 [facility] Comment on above: Performed By: #### O VAPE #### [facility] [address] [address] [address] Juliocesar Young RBC 4.62 106/ul Normal 4.20-5.40 [facility] Comment on above: Performed By: #### O VAPE #### [facility] [address] [place] [address] Dr. Juliocesar Young WBC 5.1 103/ul Normal 4.0-11.0 [facility] Comment on above: Performed By: #### O VAPE #### [facility] [address] [place] 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 Normal [facility] Comment on above: Performed By: #### U JORI, PHOS, CMP, LDH #### [facility] [address] [place] [address] Dr. Juliocesar Young Microscopic examination of blood, culture Culture Observations: NO GROWTH AT 5 DAYS. Normal [facility] Comment on above: Performed By: #### U JORI, PHOS, CMP, LDH #### [facility] [address] [place] [address] Dr. Juliocesar Young ER URINE PROFILEon 2 Bilirubin Ql (U) Negative Normal NEGATIVE [facility] Comment on above: Performed By: #### O VAPE #### [facility] [address] [place] [address] Dr. Juliocesar Young Clarity (U) CLEAR Normal CLEAR [facility] Comment on above: Performed By: #### O VAPE #### [facility] [address] [place] [address] Dr. Julioecsar Young Color (U) LT. YELLOW Normal YELLOW [facility] Comment on above: Performed By: #### O VAPE #### [facility] [address] [place] [address] Dr. Juliocesar HAIRSTON A micrscopic examination will be performed if indicated. Normal [facility] Comment on above: Performed By: #### O VAPE #### [facility] [address] [place] [address] Dr. Juliocesar Young Glucose Ql (U) Negative Normal NEGATIVE [facility] Comment on above: Performed By: #### O VAPE #### [facility] [address] [place] [address] Dr. Juliocesar Young Hemoglobin Ql (U) Negative Normal NEGATIVE [facility] Comment on above: Performed By: #### O VAPE #### [facility] [address] [place] [address] Dr. Juliocesar Young Ketones Ql (U) 15 mg/dl Abnormal NEGATIVE [facility] Comment on above: Performed By: #### O VAPE #### [facility] [address] [place] [address] Dr. Juliocesar Young LEUKOCYTES Negative Normal NEGATIVE [facility] Comment on above: Performed By: #### O VAPE #### [facility] [address] [place] [address] Dr. Juliocesar Young Nitrite Ql (U) Negative Normal NEGATIVE [facility] Comment on above: Performed By: #### O VAPE #### [facility] [address] [place] [address] Dr. Juliocesar Young pH (U) 6.0 [pH] Normal 5-9 [facility] Comment on above: Performed By: #### O VAPE #### [facility] [address] [place] [address] Dr. Juliocesar Young SPEC GRAVITY 1.005 Normal 1.005-<=1.025 [facility] Comment on above: Performed By: #### O VAPE #### [facility] [address] [place] [address] Dr. Juliocesar Young UA PROTEIN Negative Normal NEGATIVE/ TRACE [facility] Comment on above: Performed By: #### O VAPE #### [facility] [address] [place] [address] Dr. Juliocesar Young UR MICRO IND NOT INDICATED Normal [facility] Comment on above: Performed By: #### O VAPE #### [facility] [address] [place] [address] Dr. Juliocesar Young Urobilinogen Qn (U) 0.2 {Niharika'U}/dL Normal 0.2 - 1. 0 [facility] Comment on above: Performed By: #### O VAPE #### [facility] [address] [place] [address] Dr. Juliocesar Young LACTATE/LACTIC ACIDon 2021 Lactate [Moles/Vol] 1.0 mmol/L Normal 0.4-1.9 [facility] Comment on above: Performed By: #### U JORI, PHOS, CMP, LDH #### [facility] [address] [place] [address] Dr. Juliocesar Young LIPASEon 03-15-2022 Lipase [Catalytic activity/Vol] 77.0 U/L Normal 73.0-393.0 [facility] Comment on above: Performed By: #### U JORI, PHOS, CMP, LDH #### [facility] [address] [place] [address] Dr. Juliocesar Young PROF 14(COMP METB)on 022 Albumin [Mass/Vol] 3.8 g/dL Normal 3.4-5.0 [facility] Comment on above: Performed By: #### U JORI, PHOS, CMP, LDH #### [facility] [address] [place] [address] Dr. Juliocesar Young Albumin/Globulin [Mass ratio] 1.2 {ratio} Normal [facility] Comment on above: Performed By: #### U JORI, PHOS, CMP, LDH #### [facility] [address] [place] [address] Dr. Juliocesar Young ALP [Catalytic activity/Vol] 86 U/L Normal 46-116 [facility] Comment on above: Performed By: #### U JORI, PHOS, CMP, LDH #### [facility] [address] [place] [address] Dr. Juliocesar Young ALT [Catalytic activity/Vol] 19 U/L Normal 14-59 [facility] Comment on above: Performed By: #### U JORI, PHOS, CMP, LDH #### [facility] [address] [place] [address] Dr. Juliocesar Young Anion gap [Moles/Vol] 13.0 mmol/L Normal [facility] Comment on above: Performed By: #### U JORI, PHOS, CMP, LDH #### [facility] [address] [place] [address] Dr. Juliocesar Young AST [Catalytic activity/Vol] 20 U/L Normal 15-37 [facility] Comment on above: Performed By: #### U JORI, PHOS, CMP, LDH #### [facility] [address] [place] [address] Dr. Juliocesar Young Bilirubin [Mass/Vol] 1.1 mg/dL Critically high 0.2-1.0 [facility] Comment on above: Performed By: #### U JORI, PHOS, CMP, LDH #### [facility] [address] [address] [address] Juliocesar Young Calcium [Mass/Vol] 8.9 mg/dL Normal 8.5-10.1 [facility] Comment on above: Performed By: #### U JORI, PHOS, CMP, LDH #### [facility] [address] [address] [address] Juliocesar Young Chloride [Moles/Vol] 103 mmol/L Normal 98-107 [facility] Comment on above: Performed By: #### U JORI, PHOS, CMP, LDH #### [facility] [address] [address] [address] Juliocesar Young CO2 [Moles/Vol] 26.6 mmol/L Normal 21.0-32.0 [facility] Comment on above: Performed By: #### U JORI, PHOS, CMP, LDH #### [facility] [address] [address] [address] Juliocesar Young Creatinine [Mass/Vol] 0.68 mg/dL Normal 0.55-1.02 [facility] Comment on above: Performed By: #### U JORI, PHOS, CMP, LDH #### [facility] [address] [address] [address] Juliocesar Young EGFR-AF SYRIAN >60 Normal >=60 [facility] Comment on above: Performed By: #### U JORI, PHOS, CMP, LDH #### [facility] [address] [address] [address] Juliocesar Young EGFR-NON AF SYRIAN >60 Normal >=60 [facility] Comment on above: Performed By: #### U JORI, PHOS, CMP, LDH #### [facility] [address] [address] [address] Juliocesar Young Globulin (S) [Mass/Vol] 3.3 g/dL Normal [facility] Comment on above: Performed By: #### U JORI, PHOS, CMP, LDH #### [facility] [address] [address] [address] Juliocesar Young Glucose [Mass/Vol] 90 mg/dL Normal 74-[address] [facility] Comment on above: Performed By: #### U JORI, PHOS, CMP, LDH #### [facility] [address] [address] [address] Juliocesar Young Potassium [Moles/Vol] 3.6 mmol/L Normal 3.5-5.1 [facility] Comment on above: Performed By: #### U JORI, PHOS, CMP, LDH #### [facility] [address] [address] [address] Juliocesar Young Protein [Mass/Vol] 7.1 g/dL Normal 6.4-8.[address] [facility] Comment on above: Performed By: #### U JORI, PHOS, CMP, LDH #### [facility] [address] [address] [address] Juliocesar Young Sodium [Moles/Vol] 139 mmol/L Normal 136-[address] [facility] Comment on above: Performed By: #### U JORI, PHOS, CMP, LDH #### [facility] [address] [address] [address] Juliocesar Young Urea nitrogen [Mass/Vol] 6.0 mg/dL Critically low 7.0-18.0 [facility] Comment on above: Performed By: #### U JORI, PHOS, CMP, LDH #### [facility] [address] [address] [address] Juliocesar Young Urea nitrogen/Creatinine [Mass ratio] 8.8 mg/mg Normal [facility] Comment on above: Performed By: #### U JORI, PHOS, CMP, LDH #### [facility] [address] [place] [address] Dr. Juliocesar Young MRI THORACIC SPINE W WO CONT RASTon 03-13-2022 MRI THORACIC SPINE W WO CONTRAST [facility] Department of Radiology [address] [place] [id number] ===== Patient Name: RUTHIE GUERRERO : 1975 Sex: F Age: Race: [...] disc bulge and central disc protrusion with [id number] central canal stenosis and moderate right and mild to moderate left neural foraminal narrowing. IMPRESSION: Multilevel degenerative disc disease as above with central canal narrowing and neural foraminal narrowing noted. Electronically signed: Kandi Marquez. Transcribed by: [email or web address], User Resident: Electronically Signed by: KANDI MARQUEZ @ 03/14/2022 08:51 AM Normal [facility] CBC AUTO DIFFon 02-23-2022 BASO # 0.0 103/ul Normal 0.0-0.1 [facility] Comment on above: Performed By: #### U JORI, PHOS, CMP, LDH #### [facility] [address] [address] [address] Juliocesar Young Basophils/100 WBC (Bld) 0.4 % Normal 0.2-2.0 [facility] Comment on above: Performed By: #### U JORI, PHOS, CMP, LDH #### [facility] [address] [place], [place] [address] Dr. Juliocesar Young EO # 0.1 103/ul Normal 0.0-0.7 [facility] Comment on above: Performed By: #### U JORI, PHOS, CMP, LDH #### [facility] [address] [address] [address] Juliocesar Young Eosinophils/100 WBC (Bld) 1.6 % Normal 0.9-7.0 [facility] Comment on above: Performed By: #### U JORI, PHOS, CMP, LDH #### [facility] [address] [place] [address] Dr. Juliocesar Young Erythrocyte distribution width (RBC) [Ratio] 13.2 % Normal 11.0-15.0 [facility] Comment on above: Performed By: #### U JORI, PHOS, CMP, LDH #### [facility] [address] [place] [address] Dr. Juliocesar Young Hematocrit (Bld) [Volume fraction] 42.4 % Normal 36.0-48.0 [facility] Comment on above: Performed By: #### U JORI, PHOS, CMP, LDH #### [facility] [address] [place] [address] Dr. Juliocesar Young Hemoglobin (Bld) [Mass/Vol] 14.3 g/dL Normal 12.0-16.0 [facility] Comment on above: Performed By: #### U JORI, PHOS, CMP, LDH #### [facility] [address] [place] [address] Dr. Juliocesar Young IG # 0.02 10e3/ul Normal 0.00-0.03 [facility] Comment on above: Performed By: #### U JORI, PHOS, CMP, LDH #### [facility] [address] [place] [address] Dr. Juliocesar Young IG % 0.3 % Normal 0.0-0.5 [facility] Comment on above: Performed By: #### U JORI, PHOS, CMP, LDH #### [facility] [address] [place] [address] Dr. Juliocesar Young LYMPH # 1.5 103/ul Normal 1.2-3.8 [facility] Comment on above: Performed By: #### U JORI, PHOS, CMP, LDH #### [facility] [address] [address] [address] Juliocesar Young Lymphocytes/100 WBC (Bld) 22.3 % Normal 20.5-60.0 [facility] Comment on above: Performed By: #### U JORI, PHOS, CMP, LDH #### [facility] [address] [place] [address] Dr. Juliocesar Young MANUAL DIFF REQ NO Normal [facility] Comment on above: Performed By: #### U JORI, PHOS, CMP, LDH #### [facility] [address] [place] [address] Dr. Juliocesar Young MCH (RBC) [Entitic mass] 30.1 pg Normal 26.7-34.0 [facility] Comment on above: Performed By: #### U JORI, PHOS, CMP, LDH #### [facility] [address] [place] [address] Dr. Juliocesar Young MCHC (RBC) [Mass/Vol] 33.7 g/dL Normal 29.9-35.2 [facility] Comment on above: Performed By: #### U JORI, PHOS, CMP, LDH #### [facility] [address] [place] [address] Dr. Juliocesar Young MCV (RBC) [Entitic vol] 89.3 fL Normal 81.0-99.0 [facility] Comment on above: Performed By: #### U JORI, PHOS, CMP, LDH #### [facility] [address] [place] [address] Dr. Juliocesar Young MONO # 0.8 103/ul Normal 0.3-0.8 [facility] Comment on above: Performed By: #### U JORI, PHOS, CMP, LDH #### [facility] [address] [place] [address] Dr. Juliocesar Young Monocytes/100 WBC (Bld) 11.7 % Normal 1.7-12.0 [facility] Comment on above: Performed By: #### U JORI, PHOS, CMP, LDH #### [facility] [address] [place] [address] Dr. Juliocesar Young NEUT # 4.3 103/ul Normal 1.4-6.5 [facility] Comment on above: Performed By: #### U JORI, PHOS, CMP, LDH #### [facility] [address] [place] [address] Dr. Juliocesar Young Neutrophils/100 WBC (Bld) 63.7 % Normal 43.0-75.0 [facility] Comment on above: Performed By: #### U JOIR, PHOS, CMP, LDH #### [facility] [address] [place] [address] Dr. Juliocesar Young Platelet mean volume (Bld) [Entitic vol] 10.7 fL Normal 9.5-13.5 [facility] Comment on above: Performed By: #### U JORI, PHOS, CMP, LDH #### [facility] [address] [place] [address] Dr. Juliocesar Young PLT 190 103/ul Normal 150-450 [facility] Comment on above: Performed By: #### U JORI, PHOS, CMP, LDH #### [facility] [address] [place] [address] Dr. Juliocesar Young RBC 4.75 106/ul Normal 4.20-5.40 [facility] Comment on above: Performed By: #### U JORI, PHOS, CMP, LDH #### [facility] [address] [place] [address] Dr. Juliocesar Young WBC 6.8 103/ul Normal 4.0-11.0 [facility] Comment on above: Performed By: #### U JORI, PHOS, CMP, LDH #### [facility] [address] [place] [address] Dr. Juliocesar Young LDHon 02-23-2022 LDH 206 U/L Normal 81-234 [facility] Comment on above: Performed By: #### O VAPE #### [facility] [address] [place] [address] Dr. Juliocesar Young PHOSPHORUSon 02-23-2022 Phosphate [Mass/Vol] 3.8 mg/dL Normal 2.6-4.7 [facility] Comment on above: Performed By: #### O VAPE #### [facility] [address] [place] [address] Dr. Juliocesar Young PROF 14(COMP METB)on 022 Albumin [Mass/Vol] 3.3 g/dL Critically low 3.4-5.0 [facility] Comment on above: Performed By: #### O VAPE #### [facility] [address] [place] [address] Dr. Juliocesar Young Albumin/Globulin [Mass ratio] 0.9 {ratio} Normal [facility] Comment on above: Performed By: #### O VAPE #### [facility] [address] [place] [address] Dr. Juliocesar Young ALP [Catalytic activity/Vol] 90 U/L Normal 46-116 [facility] Comment on above: Performed By: #### O VAPE #### [facility] [address] [place] [address] Dr. Juliocesar Young ALT [Catalytic activity/Vol] 18 U/L Normal 14-59 [facility] Comment on above: Performed By: #### O VAPE #### [facility] [address] [place] [address] Dr. Juliocesar Young Anion gap [Moles/Vol] 12.0 mmol/L Normal [facility] Comment on above: Performed By: #### O VAPE #### [facility] [address] [place] [address] Dr. Juliocesar Young AST [Catalytic activity/Vol] 14 U/L Critically low 15-37 [facility] Comment on above: Performed By: #### O VAPE #### [facility] [address] [place] [address] Dr. Juliocesar Young Bilirubin [Mass/Vol] 0.4 mg/dL Normal 0.2-1.0 [facility] Comment on above: Performed By: #### O VAPE #### [facility] [address] [place] [address] Dr. Juliocesar Young Calcium [Mass/Vol] 8.4 mg/dL Critically low 8.5-10.1 [facility] Comment on above: Performed By: #### O VAPE #### [facility] [address] [address] [address] Juliocesar Young Chloride [Moles/Vol] 107 mmol/L Normal 98-107 [facility] Comment on above: Performed By: #### O VAPE #### [facility] [address] [address] [address] Juliocesar Young CO2 [Moles/Vol] 25.1 mmol/L Normal 21.0-32.0 [facility] Comment on above: Performed By: #### O VAPE #### [facility] [address] [place] [address] Dr. Juliocesar Young Creatinine [Mass/Vol] 0.64 mg/dL Normal 0.55-1.02 [facility] Comment on above: Performed By: #### O VAPE #### [facility] [address] [place] [address] Dr. Juliocesar Young EGFR-AF SYRIAN >60 Normal >=60 [facility] Comment on above: Performed By: #### O VAPE #### [facility] [address] [place] [address] Dr. Juliocesar Young EGFR-NON AF SYRIAN >60 Normal >=60 [facility] Comment on above: Performed By: #### O VAPE #### [facility] [address] [place] [address] Dr. Juliocesar Young Globulin (S) [Mass/Vol] 3.5 g/dL Normal [facility] Comment on above: Performed By: #### O VAPE #### [facility] [address] [place] [address] Dr. Juliocesar Young Glucose [Mass/Vol] 105 mg/dL Normal 74-106 [facility] Comment on above: Performed By: #### O VAPE #### [facility] [address] [place] [address] Dr. Juliocesar Young Potassium [Moles/Vol] 4.1 mmol/L Normal 3.5-5.1 [facility] Comment on above: Performed By: #### O VAPE #### [facility] [address] [address] [address] Juliocesar Young Protein [Mass/Vol] 6.8 g/dL Normal 6.4-8.2 [facility] Comment on above: Performed By: #### O VAPE #### [facility] [address] [address] [address] Juliocesar Young Sodium [Moles/Vol] 140 mmol/L Normal 136-145 [facility] Comment on above: Performed By: #### O VAPE #### [facility] [address] [address] [address] Juliocesar Young Urea nitrogen [Mass/Vol] 9.0 mg/dL Normal 7.0-18.0 [facility] Comment on above: Performed By: #### O VAPE #### [facility] [address] [address] [address] Juliocesar Young Urea nitrogen/Creatinine [Mass ratio] 14.1 mg/mg Normal [facility] Comment on above: Performed By: #### O VAPE #### [facility] [address] [address] [address] Juliocesar Young URIC ACID SERUMon 02-23-2022 Urate [Mass/Vol] 2.6 mg/dL Normal 2.6-6.0 [facility] Comment on above: Performed By: #### O VAPE #### [facility] [address] [address] [address] Juliocesar Young Coding Summary.on 02-16-2022 Coding Summary. [id number] Gh0 bWw+PGhlYWQ+XI0SSKWmT15 erETtkR3CM3pNNJ3MWRHNHP OVNA7PYS3eyIQ6GKbiA2Wpb iAv WalqlRCmIT26APe9UMT1zVa kQVrbmI2niAPwL3y9HvCyQS 38qV84TKfwBKCySeP9XdJue jsgbWFy C5krJuOvbNSuEjd+PHRhYmx lIHdpZHRoPScxMDAlJyBzdH frGL9bTa2mLSWmSHNitMsdl HNlOiBj l3dgEQTfPIezOI8blZctP1P waSL8WHGpt3m0Rn21iJM+PH AhFOX0eVjaJLtaf088SqTis 9exPRC7 hTMmWRksPDA6I20jv6F2UDH kHGHrEZG6oNF2eG7egHcgmn yhL3FffOMaRqD3EEV5iGJgy F0mfUvo krllcM6uPwy+W08PFB9WGRC ARB8GDzm4Z6CyAcqyjCB+PC 14CMQcGS31aZGyaDIjf4bly Fh8YgWk LMCaGRH3hQigMZega8YmIPT hL75njNWhf0C9LUNdyTqojZ UmSgZivEG0kJ1fAZtojcawm 2hvdzsn Tkhlr4sxro31fK84E13vWEq cBRLpJFY7TBHvYZTziVghwf 1iwT7kMp4+GBzzc7lth4fdy Wi5JsAi PCKqtwUcbGfrMUX2f4AuVf5 6Y6GldLuwn6OtYue7sw17cI Fnd3I8rVB5STapSHEbhB8sL WxlZnQ6 MXQpVuMbyL16qSDxFYamXx5 zuMoqtAteEC1nIRPcsvheUV BqbO1kBTDzvDYfkKavSG2pU TBpbjtm o744UlYlBKG8DNMiwEVjP2R suS8eSmAbDNLkRDLnA2OgoW HwANjmM997EHevIaH0EGGvh iNyC5Mh LVTbmSboIcN5o4S1Mq4Wj0S atzqwAKF0HTfnRBL4EeP4Uu WiNqY1N5HxXdb3FXNvyLmoI T2uN2Ep SWVzckrmutcowQC4TAZeSEH trJ61eMXaRQneZv2fo8T9e3 85PAXtHEDjkH48Ow1hbIeaS TBwdCBU nB0ycjoqp1tryeieCfVcXEF tBVa0BUt5ORForJqhRgJaVK P1ZaG8DWJ9oGIxoK1plMncc vexdM9j Oyc+V37bvF4nTGS2JAW9ucg oILShfaWkNB64WM82Y7UjPe wvdGFibGU+PGRpdiBzdHlsZ O9jTlRz m7jps2YiJZlfX4JpTKFiEJn yKqk4EJVvYWQ2oIT9vY1zBD QpUMcnp6F6oOP9K2ZsurBnt j8ph8ho LUExVQybM43efSTmu1X2CEV pzMM6BIBkkJmvQfXafR82Uc c+WKKoiHxew4AfJhehe5ovj 5leyKk7 WjCpRFPxtmAkyFmbYKO0q9D jEl29J15lOYccCOLuOPJjGF MyQNVnzJuice3woS2sFq6+P GNvbCB3 vEZ8jY7xKNMrOzL3BAkrX11 4NzPwlRAxDlrfq7umk8laaO d0ReEoSNGothGmwRifUJD9o 0AiIw16 J73hVKrbHSVpEHPmHYGyLXB usHgdwq9ueE8pTx3+PC9jb2 yora62uL06qCK+VPOdQEZ1g WxlPSdw DSOpmA1yIIriRuN3ALQgGaK syS46iVLqJNjjMs6hwQizjZ gwDX6iJGQoqwoeu817OiMtg 2xkIDEw pSNxMGquUBJ1U64vr1I3PUY sUNNkDNC4rIE9zW7sxWxwae ogbGVmdDsgdmVydGljYWwtY OjiJ017 IHRvcDsnPlBhdGllbnQgTmF uSPq9H6NfBax2UISxfAmlYD 6ieDOsQFqhJz2ykMyhhOqqQ F7iFNRf ntajo633WcVoo9pfXPSmyUT gFRqkKGT7G12pt0L9HZEkMA DhFYJ6aKD3lL1rmVjabdkjx GVmdDsg lsPjiMaeDYwgCDmwW094RJF fdKgfFySnpoYbZKKxhDY3HQ 56IW41pJQki1R0fGS1M6GtX GRpbmct woffuEO7HXAbXZQyhK43Nd9 vmWxkTt7jNXWhOVJ7TETglE PuZ7JahD8gTrFfYYPfMHNsU 3RleHQt JAtvY114RVysQoZ2NOApmhZ vL7EdDPJaiTkgVsG8w4Q2Vz 0ZB1S9LA68BS10vPIyl1G2h BM6J2Bg OJSwiavepreidLX5AFKiZXR yxW20Eq7ikRwkJw7dEVTjAF S0DIGfhGHtN9JhwE2vSqKgJ DAwMDAw M5FdrSPuYIlnC344FTveUaT 7BUYtaqFaA2EqNRQllXtyFu A1e2D9Nc7VVQi0MD21AT58e SZko1U1 hPI2N2MnMZKobsemjgxmqKH 1KIDrZFTtyJ47Wy1paJvwMa 0rAARpUBO5TKPfnXUcW5Shk Q3qIpGa THJySEJfW2RomKCaRFuxQ06 8OCvyNyU5OPLhxlJjP7TeUH QwoUrgSkE2p7Y8Fr4IFNXqR M42KBZ0 hIF6AZ13AR53F9FeTxhhnIG ibGU+PHRhYmxlIHdpZHRoPS ciIXHhBkKmuAdwNV2lXc8fA GVyLWNv tJnudTWqWoXhm2shNWCsRXz xDK1epNqfM9GoiIF1DACdp2 n6Qp83B09yJ3KumWR+PGNvb JL0eAR7 sK8vEgCvRgE5JAnfI400NiB siWLsDkyqf9piw2ebwDa1Tj R3JXXhyvRkbWfgUAG3k3NhC j32C81x IHdpZHRoPSIxNSUiIHZhbGl izz2kaI9vQs0+FUUxeVR8lW X7tF6eFfVwWfR8EZjmJ389Q nRvcCIv Pxtee5dym7wtaNh7PeYwOUX tahArfOyxMAS1v3UvVx75P8 PegQman1XaRqn1da47zTOpi 6J3tXV9 A2LlIDElxactfOOhgDfhIA2 hOLIlngbzJWZupW4bMQMpU5 f7WyAbEtC8DZqiV8ImuwW5S DEwcHQg BEcmGSR1E18ql9P5LQVaSZP aSUT1dUE2oQ9ghOqwjfnvuD VmdDsgdmVydGljYWwtYWxpZ 246IHRv tEmrLLNhiB7wBRKgeASgzKt aBW3oVFJtqqzdXzZEYINPLD uyFT9OKVKQFUN4P8XsBup2W CBzdHls RO7qlRWwZTdlMf3vpEifeKn vZZ4sKRIyssshDATgrS1gYU UyqBOknPrkJG9zHYPefplbm 250OiAx WAA0RBInqEBgH8MydM9rAfA tRVEkQBMcA9BxjERhXOlsI6 54LVamDyB7JWYpymCtO5EtO WFsaWdu JtT3q9G4Mr7xNW9sFS7hKIj 2BV27ZN51qLXuy7C9pXJ3P8 HoHZRberkdklpwqVL9PPGjL DUwaW47 cRGuBJrmRt8jp8K0e417GTQ bPFMmtW37Is5haPumYCEsyW LCtV9olxcye4rltaadDkExH DAwMDt0 OTi5DYWuwNqgBgJfCLC1DqF 4XBN6dQXviK2yrGgaastbfP 9wOyc+RQpvGVSfhrB0A6DoX kz7FPLm iEveWQ5jbRPpHLruEq1cjEk zcDqnYU9kCRZlrmzaIQRytS 3fMWDygNQuxGfkLD8nIGRij yzuk935 FfSjHHM7RCHppHOiM8YjvP9 tZdEzWBRlPSNoK6CnrAKlYP oiL708QZqzThK5FJQrvpZsC 2FsLWFs wWodMnV8u8X3Ao4XWH8agEE 3S4PzGnj3JBMrnWjmKP3cpU UmGVblPq0xrZgctRyiKJ5vI TBpbjtw DJWtcH0iXQKkaXHryRulCF2 kSFMlpnkas687PiMeFYM5DZ KujQYrL1PuiH6xEwJwNVJeL JBdN5Ml pVLbFOnwU604RHohBwX3OSR klmDnU3IhSJAhzWxgZqI8b4 T8Gz9BtMCzNSVgTT35MP82P L03F6Nq PjwvdGFibGU+PHRhYmxlIHd pZHRoPScxMDAlJyBzdHlsZT 1uOa5iGAXeDFYzeFaixQSrR bAbu5le GJLbOJgbLX0pmNvuM3NxgCX 7MAZcp0s9Ed38W01zX2TgfF A+MUJddYT4gPK9sS6qVqZwG hC2HXie K103LmFcwONmBuozx1wwk4c lgTi7SxEvZEBdhpWrsEaqQI J7n9QhEx67C15mPIvfTAPgB SIyMCUi ETRxsTerlx8tkQ8tJc9+PGN bqFE1tDI4lJ7xAhXwSxE6WN hmV323PyEsyZHlUogvT82hA 3JvdXA+ NCPeUvi1CBQdoXsjFO6krVU yUNyiQk0jDCU6DhSzPlWvQZ zeR7HzOMOokxoupvtroLY4O DAuMDUw bS08Wb1arRlpIf9bUQYnOOM 8THJheLUvN2HxeM6zPcNnZG GsSLOdV5IjiOGjCAdyN280N GxlZnQ7 GKGruhCiV9BgUACvkBzmOaC 5a2E5Oa8XtXtraDRaLG7rYp PnIVi8V9RzGxt5UNSmgMziY N6yjOQa SBlsUu4wlHykuRflPQ0wJFZ hpghjp191QjSfn3xwUILxgI XpVIcpVCQ2H78if7G0UZSkI DAwMDA7 uKZ5yO8lbTatrwzklWFagHw hxgOuwPhlXLenGFkhL106FL EofZqvBcJVCym3B0OwHiq3G CBzdHls RG7fyRZkZJkeQg6chPgfiLx sDN5vQEMdppklr091WvAdo2 bdIFEaeZIqDPigUSU4F69oa 9I1RZLl NYGjCTO0iRA0vQ1zzTzeygy gbGVmdDsgdmVydGljYWwtYW dxT586YYVcrBykSt9YNhw0J 4VfDwg3 DPCsnTklRT6dqZMuNNfxKv2 ikCsmeIacMK6hTVQzsdgpc6 96OgChy5vjMBTxfPTsVJvaL RU7I86b e3B2AIEvQHPpVTU3tPP3jL3 hbGlnbjogbGVmdDsgdmVydG vmYXybMAbsM530JOEopUwvL lBheWVy OjwvdGQ+NY39fm85S0CeXin xUgx7TPXqGQJ9aON0kV1uLF SjORtjm3C8eGY3U9WjaoXub l4cy1dx YXBz (more content not included)... Normal [facility] CTA CHESTon 02-08-2022 CTA CHEST [facility] Department of Radiology [address] [place] [id number] ===== Patient Name: RUTHIE GUERRERO : 1975 Sex: F Age: Race: White Pt. Location: 29 Patient Status: O Ordered Date: 02/08/2022 4:00:00 PM Completed Date: 02/08/2022 05:01 PM Requesting Provider: BOONE SALINAS Attending Provider: BOONE SALINAS Report Copy To: SELF, REFERRED Signs & Symptoms: R07.89 Other chest pain I10 History: [place], hold pt. until after doc is called with results [phone] Comments: , chronic lymphoid leukemia with chest [...] nodules. Electronically signed: Roxanna Thomas. 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 Current treatment obinutuzumab and acalabrutinib possible PE Consent for Treatmenton Consent for Treatment [id number] D:127 Normal [facility] US Abdomen, Limitedon 2021 US Abdomen, Limited [...] MD Transcribed by: WERNER Technologist: NATHALIE Normal [facility] Physician Orderon 01-31-2022 Physician Order [id number] D:127 Normal [facility] CBC W MANUAL DIFFon 01-27-20 22 ATYPICAL LYMPH # 0.57 103/ul Normal [facility] Comment on above: Performed By: #### U JORI, PHOS, CMP, LDH #### [facility] [address] [place] [address] Dr. Juliocesar Young ATYPICAL LYMPH % 5 % Normal [facility] Comment on above: Performed By: #### U JORI, PHOS, CMP, LDH #### [facility] [address] [address] [address] Juliocesar Young BAND # Normal 0.0-0.3 [facility] Comment on above: Performed By: #### U JORI, PHOS, CMP, LDH #### [facility] [address] [place] [address] Dr. Juliocesar Young BAND % Normal 0-5 [facility] Comment on above: Performed By: #### U JORI, PHOS, CMP, LDH #### [facility] [address] [address] [address] Juliocesar Young BASOM # 0.00 103/ul Normal 0.00-0.10 [facility] Comment on above: Performed By: #### U JORI, PHOS, CMP, LDH #### [facility] [address] [address] [address] Juliocesar Young BASOM % 0.0 % Critically low 0.2-2.0 [facility] Comment on above: Performed By: #### U JORI, PHOS, CMP, LDH #### [facility] [address] [address] [address] Juliocesar Young BLAST # Normal [facility] Comment on above: Performed By: #### U JORI, PHOS, CMP, LDH #### [facility] [address] [address] [address] Juliocesar Young BLAST % Normal [facility] Comment on above: Performed By: #### U JORI, PHOS, CMP, LDH #### [facility] [address] [place] [address] Dr. Juliocesar Young CORRECTED WBC Normal 4.0-11.0 [facility] Comment on above: Performed By: #### U JORI, PHOS, CMP, LDH #### [facility] [address] [address] [address] Juliocesar Young EOS # 0.12 103/ul Normal 0.00-0.70 [facility] Comment on above: Performed By: #### U JORI, PHOS, CMP, LDH #### [facility] [address] [address] [address] Juliocesar Young EOS% 1.0 % Normal 0.9-7.0 [facility] Comment on above: Performed By: #### U JORI, PHOS, CMP, LDH #### [facility] [address] [address] [address] Juliocesar oYung HCT 44.2 % Normal 36.0-48.0 [facility] Comment on above: Performed By: #### U JORI, PHOS, CMP, LDH #### [facility] [address] [place] [address] Dr. Juliocesar Young HGB 14.8 g/dl Normal 12.0-16.0 [facility] Comment on above: Performed By: #### U JORI, PHOS, CMP, LDH #### [facility] [address] [place] [address] Dr. Juliocesar Young LYMPHM # 5.17 103/ul Critically high 1.20-3.80 [facility] Comment on above: Performed By: #### U JORI, PHOS, CMP, LDH #### [facility] [address] [place] [address] Dr. Juliocesar Young LYMPHM% 45.0 % Normal 20.5-60.0 [facility] Comment on above: Performed By: #### U JORI, PHOS, CMP, LDH #### [facility] [address] [place] [address] Dr. Julioceasr Young MCH 30.5 pg Normal 26.7-34.0 [facility] Comment on above: Performed By: #### U JORI, PHOS, CMP, LDH #### [facility] [address] [place] [address] Dr. Juliocesar Young MCHC 33.5 g/dl Normal 29.9-35.2 [facility] Comment on above: Performed By: #### U JORI, PHOS, CMP, LDH #### [facility] [address] [address] [address] Juliocesar Young MCV 90.9 fL Normal 81.0-99.0 [facility] Comment on above: Performed By: #### U JORI, PHOS, CMP, LDH #### [facility] [address] [address] [address] Juliocesar Young METAMYELOCYTE # Normal [facility] Comment on above: Performed By: #### U JORI, PHOS, CMP, LDH #### [facility] [address] [place] [address] Dr. Juliocesar Young METAMYELOCYTE % Normal [facility] Comment on above: Performed By: #### U JORI, PHOS, CMP, LDH #### [facility] [address] [place] [address] Dr. Juliocesar Young MONOM# 0.81 103/ul Critically high 0.30-0.80 [facility] Comment on above: Performed By: #### U JORI, PHOS, CMP, LDH #### [facility] [address] [place] [address] Dr. Juliocesar Young MONOM% 7.0 % Normal 1.7-12.0 [facility] Comment on above: Performed By: #### U JORI, PHOS, CMP, LDH #### [facility] [address] [place] [address] Dr. Juliocesar Young MPV 10.1 fL Normal 9.5-13.5 [facility] Comment on above: Performed By: #### U JORI, PHOS, CMP, LDH #### [facility] [address] [place] [address] Dr. Juliocesar Young MYELOCYTE # Normal [facility] Comment on above: Performed By: #### U JORI, PHOS, CMP, LDH #### [facility] [address] [place] [address] Dr. Juliocesar Young MYELOCYTE % Normal [facility] Comment on above: Performed By: #### U JORI, PHOS, CMP, LDH #### [facility] [address] [address] [address] Juliocesar Young NRBC Normal [facility] Comment on above: Performed By: #### U JORI, PHOS, CMP, LDH #### [facility] [address] [address] [address] Juliocesar Young PLT 214 103/ul Normal 150-450 [facility] Comment on above: Performed By: #### U JORI, PHOS, CMP, LDH #### [facility] [address] [address] [address] Juliocesar Young RBC 4.86 106/ul Normal 4.20-5.40 [facility] Comment on above: Performed By: #### U JORI, PHOS, CMP, LDH #### [facility] [address] [place] [address] Dr. Juliocesar Young RDW 13.3 % Normal 11.0-15.0 [facility] Comment on above: Performed By: #### U JORI, PHOS, CMP, LDH #### [facility] [address] [place] [address] Dr. Juliocesar Young SEG # 4.83 103/ul Normal 1.40-6.50 [facility] Comment on above: Performed By: #### U JORI, PHOS, CMP, LDH #### [facility] [address] [place] [address] Dr. Juliocesar Young SEG % 42.0 % Critically low 43.0-75.0 [facility] Comment on above: Performed By: #### U JORI, PHOS, CMP, LDH #### [facility] [address] [address] [address] Juliocesar Young WBC 11.5 103/ul Critically high 4.0-11.0 [facility] Comment on above: Performed By: #### U JORI, PHOS, CMP, LDH #### [facility] [address] [place] [address] Dr. Juliocesar Young LDHon 01-26-2022 LDH 184 U/L Normal 81-234 [facility] Comment on above: Performed By: #### U JORI, PHOS, CMP, LDH #### [facility] [address] [address] [address] Juliocesar Young PHOSPHORUSon 01-26-2022 Phosphate [Mass/Vol] 3.0 mg/dL Normal 2.6-4.7 [facility] Comment on above: Performed By: #### U JORI, PHOS, CMP, LDH #### [facility] [address] [address] [address] Juliocesar Young PROF 14(COMP METB)on 022 Albumin [Mass/Vol] 3.4 g/dL Normal 3.4-5.[address] [facility] Comment on above: Performed By: #### U JORI, PHOS, CMP, LDH #### [facility] [address] [place] [address] Dr. Juliocesar Young Albumin/Globulin [Mass ratio] 0.9 {ratio} Normal [facility] Comment on above: Performed By: #### U JORI, PHOS, CMP, LDH #### [facility] [address] [address] [address] Juliocesar Young ALP [Catalytic activity/Vol] 85 U/L Normal 46-116 [facility] Comment on above: Performed By: #### U JORI, PHOS, CMP, LDH #### [facility] [address] [place] [address] Dr. Juliocesar Young ALT [Catalytic activity/Vol] 20 U/L Normal 14-59 [facility] Comment on above: Performed By: #### U JORI, PHOS, CMP, LDH #### [facility] [address] [address] [address] Juliocesar Young Anion gap [Moles/Vol] 12.6 mmol/L Normal [facility] Comment on above: Performed By: #### U JORI, PHOS, CMP, LDH #### [facility] [address] [place] [address] Dr. Juliocesar Young AST [Catalytic activity/Vol] 12 U/L Critically low 15-37 [facility] Comment on above: Performed By: #### U JORI, PHOS, CMP, LDH #### [facility] [address] [address] [address] Juliocesar Young Bilirubin [Mass/Vol] 0.5 mg/dL Normal 0.2-1.0 [facility] Comment on above: Performed By: #### U JORI, PHOS, CMP, LDH #### [facility] [address] [place] [address] Dr. Juliocesar Young Calcium [Mass/Vol] 8.5 mg/dL Normal 8.5-10.1 [facility] Comment on above: Performed By: #### U JORI, PHOS, CMP, LDH #### [facility] [address] [address] [address] Juliocesar Young Chloride [Moles/Vol] 107 mmol/L Normal 98-107 [facility] Comment on above: Performed By: #### U JORI, PHOS, CMP, LDH #### [facility] [address] [place] [address] Dr. Juliocesar Young CO2 [Moles/Vol] 24.8 mmol/L Normal 21.0-32.0 [facility] Comment on above: Performed By: #### U JORI, PHOS, CMP, LDH #### [facility] [address] [place] [address] Dr. Juliocesar Young Creatinine [Mass/Vol] 0.60 mg/dL Normal 0.55-1.02 [facility] Comment on above: Performed By: #### U JORI, PHOS, CMP, LDH #### [facility] [address] [place] [address] Dr. Juliocesar Young EGFR-AF SYRIAN >60 Normal >=60 [facility] Comment on above: Performed By: #### U JORI, PHOS, CMP, LDH #### [facility] [address] [place] [address] Dr. Juliocesar Young EGFR-NON AF SYRIAN >60 Normal >=60 [facility] Comment on above: Performed By: #### U JORI, PHOS, CMP, LDH #### [facility] [address] [place] [address] Dr. Juliocesar Young Globulin (S) [Mass/Vol] 3.6 g/dL Normal [facility] Comment on above: Performed By: #### U JORI, PHOS, CMP, LDH #### [facility] [address] [address] [address] Juliocesar Young Glucose [Mass/Vol] 96 mg/dL Normal 74-[address] [facility] Comment on above: Performed By: #### U JORI, PHOS, CMP, LDH #### [facility] [address] [address] [address] Juliocesar Young Potassium [Moles/Vol] 4.4 mmol/L Normal 3.5-5.1 [facility] Comment on above: Performed By: #### U JORI, PHOS, CMP, LDH #### [facility] [address] [place] [address] Dr. Juliocesar Young Protein [Mass/Vol] 7.0 g/dL Normal 6.4-8.[address] [facility] Comment on above: Performed By: #### U JORI, PHOS, CMP, LDH #### [facility] [address] [address] [address] Juliocesar Young Sodium [Moles/Vol] 140 mmol/L Normal 136-[address] [facility] Comment on above: Performed By: #### U JORI, PHOS, CMP, LDH #### [facility] [address] [address] [address] Juliocesar Young Urea nitrogen [Mass/Vol] 9.0 mg/dL Normal 7.0-18.0 [facility] Comment on above: Performed By: #### U JORI, PHOS, CMP, LDH #### [facility] [address] [address] [address] Juliocesar Young Urea nitrogen/Creatinine [Mass ratio] 15.0 mg/mg Normal [facility] Comment on above: Performed By: #### U JORI, PHOS, CMP, LDH #### [facility] [address] [address] [address] Juliocesar Young URIC ACID SERUMon 01-26-2022 Urate [Mass/Vol] 2.2 mg/dL Critically low 2.6-6.0 [facility] Comment on above: Performed By: #### U JORI, PHOS, CMP, LDH #### [facility] [address] [address] [address] Juliocesar Young CBC W MANUAL DIFFon 01-11-20 22 ANISOCYTOSIS 1+ Normal [facility] Comment on above: Performed By: #### U JORI, PHOS, CMP, LDH #### [facility] [address] [address] [address] Juliocesar Young ATYPICAL LYMPH # 2.48 103/ul Normal [facility] Comment on above: Performed By: #### U JORI, PHOS, CMP, LDH #### [facility] [address] [address] [address] Juliocesar Young ATYPICAL LYMPH % 14 % Normal [facility] Comment on above: Performed By: #### U JORI, PHOS, CMP, LDH #### [facility] [address] [address] [address] Juliocesar Young BAND # Normal 0.0-0.3 [facility] Comment on above: Performed By: #### U JORI, PHOS, CMP, LDH #### [facility] [address] [place] [address] Dr. Juliocesar Young BAND % Normal 0-5 [facility] Comment on above: Performed By: #### U JORI, PHOS, CMP, LDH #### [facility] [address] [address] [address] Juliocesar Young BASOM # 0.00 103/ul Normal 0.00-0.10 [facility] Comment on above: Performed By: #### U JORI, PHOS, CMP, LDH #### [facility] [address] [address] [address] Juliocesar Young BASOM % 0.0 % Critically low 0.2-2.0 [facility] Comment on above: Performed By: #### U JORI, PHOS, CMP, LDH #### [facility] [address] [address] [address] Juliocesar Young BLAST # Normal [facility] Comment on above: Performed By: #### U JORI, PHOS, CMP, LDH #### [facility] [address] [address] [address] Juliocesar Young BLAST % Normal [facility] Comment on above: Performed By: #### U JORI, PHOS, CMP, LDH #### [facility] [address] [address] [address] Juliocesar Young CORRECTED WBC Normal 4.0-11.0 [facility] Comment on above: Performed By: #### U JORI, PHOS, CMP, LDH #### [facility] [address] [address] [address] Juliocesar Young EOS # 0.00 103/ul Normal 0.00-0.70 [facility] Comment on above: Performed By: #### U JORI, PHOS, CMP, LDH #### [facility] [address] [address] Dr. Juliocesar Young EOS% 0.0 % Critically low 0.9-7.0 [facility] Comment on above: Performed By: #### U JORI, PHOS, CMP, LDH #### [facility] [address] [address] [address] Juliocesar Young HCT 41.9 % Normal 36.0-48.0 [facility] Comment on above: Performed By: #### U JORI, PHOS, CMP, LDH #### [facility] [address] [address] [address] Juliocesar Young HGB 13.7 g/dl Normal 12.0-16.0 [facility] Comment on above: Performed By: #### U JORI, PHOS, CMP, LDH #### [facility] [address] [address] [address] Juliocesar Young LYMPHM # 8.67 103/ul Critically high 1.20-3.80 [facility] Comment on above: Performed By: #### U JORI, PHOS, CMP, LDH #### [facility] [address] [address] [address] Juliocesar Young LYMPHM% 49.0 % Normal 20.5-60.0 [facility] Comment on above: Performed By: #### U JORI, PHOS, CMP, LDH #### [facility] [address] [address] [address] Juliocesar Young MCH 30.0 pg Normal 26.7-34.0 [facility] Comment on above: Performed By: #### U JORI, PHOS, CMP, LDH #### [facility] [address] [address] [address] Juliocesar Young MCHC 32.7 g/dl Normal 29.9-35.2 [facility] Comment on above: Performed By: #### U JORI, PHOS, CMP, LDH #### [facility] [address] [place] [address] Dr. Juliocesar Young MCV 91.9 fL Normal 81.0-99.0 [facility] Comment on above: Performed By: #### U JORI, PHOS, CMP, LDH #### [facility] [address] [place] [address] Dr. Juliocesar Young METAMYELOCYTE # Normal [facility] Comment on above: Performed By: #### U JORI, PHOS, CMP, LDH #### [facility] [address] [place] [address] Dr. Juliocesar Young METAMYELOCYTE % Normal [facility] Comment on above: Performed By: #### U JORI, PHOS, CMP, LDH #### [facility] [address] [address] [address] Juliocesar Young MONOM# 0.71 103/ul Normal 0.30-0.80 [facility] Comment on above: Performed By: #### U JORI, PHOS, CMP, LDH #### [facility] [address] [address] [address] Juliocesar Young MONOM% 4.0 % Normal 1.7-12.0 [facility] Comment on above: Performed By: #### U JORI, PHOS, CMP, LDH #### [facility] [address] [place] [address] Dr. Juliocesar Young MPV 10.4 fL Normal 9.5-13.5 [facility] Comment on above: Performed By: #### U JORI, PHOS, CMP, LDH #### [facility] [address] [address] [address] Juliocesar Young MYELOCYTE # Normal [facility] Comment on above: Performed By: #### U JORI, PHOS, CMP, LDH #### [facility] [address] [address] [address] Juliocesar Young MYELOCYTE % Normal [facility] Comment on above: Performed By: #### U JORI, PHOS, CMP, LDH #### [facility] [address] [address] [address] Juliocesar Young NRBC Normal [facility] Comment on above: Performed By: #### U JORI, PHOS, CMP, LDH #### [facility] [address] [address] [address] Juliocesar Young PLT 180 103/ul Normal 150-450 [facility] Comment on above: Performed By: #### U JORI, PHOS, CMP, LDH #### [facility] [address] [address] [address] Juliocesar Young RBC 4.56 106/ul Normal 4.20-5.40 [facility] Comment on above: Performed By: #### U JORI, PHOS, CMP, LDH #### [facility] [address] [address] [address] Juliocesar Young RDW 14.1 % Normal 11.0-15.0 [facility] Comment on above: Performed By: #### U JORI, PHOS, CMP, LDH #### [facility] [address] [address] [address] Juliocesar Young SEG # 5.84 103/ul Normal 1.40-6.50 [facility] Comment on above: Performed By: #### U JORI, PHOS, CMP, LDH #### [facility] [address] [address] [address] Juliocesar Young SEG % 33.0 % Critically low 43.0-75.0 [facility] Comment on above: Performed By: #### U JORI, PHOS, CMP, LDH #### [facility] [address] [address] [address] Juliocesar Young WBC 17.7 103/ul Critically high 4.0-11.0 [facility] Comment on above: Performed By: #### U JORI, PHOS, CMP, LDH #### [facility] [address] [place] [address] Dr. Juliocesar Young LDHon 01-10-2022 LDH 163 U/L Normal 81-234 [facility] Comment on above: Performed By: #### U JORI, PHOS, CMP, LDH #### [facility] [address] [address] [address] Juliocesar Young PHOSPHORUSon 01-10-2022 Phosphate [Mass/Vol] 2.4 mg/dL Critically low 2.6-4.7 [facility] Comment on above: Performed By: #### U JORI, PHOS, CMP, LDH #### [facility] [address] [place] [address] Dr. Juliocesar Young PROF 14(COMP METB)on 022 Albumin [Mass/Vol] 3.2 g/dL Critically low 3.4-5.0 [facility] Comment on above: Performed By: #### U JORI, PHOS, CMP, LDH #### [facility] [address] [place] [address] Dr. Juliocesar Young Albumin/Globulin [Mass ratio] 0.9 {ratio} Normal [facility] Comment on above: Performed By: #### U JORI, PHOS, CMP, LDH #### [facility] [address] [place] [address] Dr. Juliocesar Young ALP [Catalytic activity/Vol] 90 U/L Normal 46-116 [facility] Comment on above: Performed By: #### U JORI, PHOS, CMP, LDH #### [facility] [address] [place] [address] Dr. Juliocesar Young ALT [Catalytic activity/Vol] 21 U/L Normal 14-59 [facility] Comment on above: Performed By: #### U JORI, PHOS, CMP, LDH #### [facility] [address] [address] [address] Juliocesar Young Anion gap [Moles/Vol] 10.4 mmol/L Normal [facility] Comment on above: Performed By: #### U JORI, PHOS, CMP, LDH #### [facility] [address] [address] [address] Juliocesar Young AST [Catalytic activity/Vol] 11 U/L Critically low 15-37 [facility] Comment on above: Performed By: #### U JORI, PHOS, CMP, LDH #### [facility] [address] [address] [address] Juliocesar Young Bilirubin [Mass/Vol] 0.3 mg/dL Normal 0.2-1.0 [facility] Comment on above: Performed By: #### U JORI, PHOS, CMP, LDH #### [facility] [address] [place] [address] Dr. Juliocesar Young Calcium [Mass/Vol] 8.4 mg/dL Critically low 8.5-10.1 [facility] Comment on above: Performed By: #### U JORI, PHOS, CMP, LDH #### [facility] [address] [place] [address] Dr. Juliocesar Young Chloride [Moles/Vol] 109 mmol/L Critically high 98-107 [facility] Comment on above: Performed By: #### U JORI, PHOS, CMP, LDH #### [facility] [address] [address] [address] Juliocesar Young CO2 [Moles/Vol] 27.4 mmol/L Normal 21.0-32.0 [facility] Comment on above: Performed By: #### U JORI, PHOS, CMP, LDH #### [facility] [address] [place] [address] Dr. Juliocesar Young Creatinine [Mass/Vol] 0.53 mg/dL Critically low 0.55-1.02 [facility] Comment on above: Performed By: #### U JORI, PHOS, CMP, LDH #### [facility] [address] [place] [address] Dr. Juliocesar Young EGFR-AF SYRIAN >60 Normal >=60 [facility] Comment on above: Performed By: #### U JORI, PHOS, CMP, LDH #### [facility] [address] [address] [address] Juliocesar Young EGFR-NON AF SYRIAN >60 Normal >=60 [facility] Comment on above: Performed By: #### U JORI, PHOS, CMP, LDH #### [facility] [address] [address] [address] Juliocesar Yonug Globulin (S) [Mass/Vol] 3.6 g/dL Normal [facility] Comment on above: Performed By: #### U JORI, PHOS, CMP, LDH #### [facility] [address] [address] [address] Juliocesar Young Glucose [Mass/Vol] 108 mg/dL Critically high 74-[address] [facility] Comment on above: Performed By: #### U JORI, PHOS, CMP, LDH #### [facility] [address] [address] [address] Juliocesar Young Potassium [Moles/Vol] 3.8 mmol/L Normal 3.5-5.1 [facility] Comment on above: Performed By: #### U JORI, PHOS, CMP, LDH #### [facility] [address] [address] [address] Juliocesar Young Protein [Mass/Vol] 6.8 g/dL Normal 6.4-8.[address] [facility] Comment on above: Performed By: #### U JORI, PHOS, CMP, LDH #### [facility] [address] [address] [address] Juliocesar Young Sodium [Moles/Vol] 143 mmol/L Normal 136-[address] [facility] Comment on above: Performed By: #### U JORI, PHOS, CMP, LDH #### [facility] [address] [address] [address] Juliocesar Young Urea nitrogen [Mass/Vol] 9.0 mg/dL Normal 7.0-18.0 [facility] Comment on above: Performed By: #### U JORI, PHOS, CMP, LDH #### [facility] [address] [place] [address] Dr. Juliocesar Young Urea nitrogen/Creatinine [Mass ratio] 17.0 mg/mg Normal [facility] Comment on above: Performed By: #### U JORI, PHOS, CMP, LDH #### [facility] [address] [place] [address] Dr. Juliocesar Young URIC ACID SERUMon 01-10-2022 Urate [Mass/Vol] 2.0 mg/dL Critically low 2.6-6.0 [facility] Comment on above: Performed By: #### U JORI, PHOS, CMP, LDH #### [facility] [address] [place] [address] Dr. Juliocesar Young CBC AUTO DIFFon 12-29-2021 BASO # 0.1 103/ul Normal 0.0-0.1 [facility] Comment on above: Performed By: #### U JORI, PHOS, CMP, LDH #### [facility] [address] [place] [address] Dr. Juliocesar Young Basophils/100 WBC (Bld) 0.4 % Normal 0.2-2.0 [facility] Comment on above: Performed By: #### U JORI, PHOS, CMP, LDH #### [facility] [address] [place] [address] Dr. Juliocesar Young EO # 0.1 103/ul Normal 0.0-0.7 [facility] Comment on above: Performed By: #### U JORI, PHOS, CMP, LDH #### [facility] [address] [place] [address] Dr. Juliocesar Young Eosinophils/100 WBC (Bld) 0.2 % Critically low 0.9-7.0 [facility] Comment on above: Performed By: #### U JORI, PHOS, CMP, LDH #### [facility] [address] [place] [address] Dr. Juliocesar Young Erythrocyte distribution width (RBC) [Ratio] 14.2 % Normal 11.0-15.0 [facility] Comment on above: Performed By: #### U JORI, PHOS, CMP, LDH #### [facility] [address] [place] [address] Dr. Juliocesar Young Hematocrit (Bld) [Volume fraction] 43.8 % Normal 36.0-48.0 [facility] Comment on above: Performed By: #### U JORI, PHOS, CMP, LDH #### [facility] [address] [place] [address] Dr. Juliocesar Young Hemoglobin (Bld) [Mass/Vol] 14.5 g/dL Normal 12.0-16.0 [facility] Comment on above: Performed By: #### U JORI, PHOS, CMP, LDH #### [facility] [address] [place] [address] Dr. Juliocesar Young IG # 0.06 10e3/ul Critically high 0.00-0.03 [facility] Comment on above: Performed By: #### U JORI, PHOS, CMP, LDH #### [facility] [address] [place] [address] Dr. Juliocesar Young IG % 0.2 % Normal 0.0-0.5 [facility] Comment on above: Performed By: #### U JORI, PHOS, CMP, LDH #### [facility] [address] [place] [address] Dr. Juliocesar Young LYMPH # 17.6 103/ul Critically high 1.2-3.8 [facility] Comment on above: Performed By: #### U JORI, PHOS, CMP, LDH #### [facility] [address] [place] [address] Dr. Juliocesar Young Lymphocytes/100 WBC (Bld) 72.9 % Critically high 20.5-60.0 [facility] Comment on above: Performed By: #### U JORI, PHOS, CMP, LDH #### [facility] [address] [place] [address] Dr. Juliocesar Young MANUAL DIFF REQ NO Normal [facility] Comment on above: Performed By: #### U JORI, PHOS, CMP, LDH #### [facility] [address] [place], [place] [id number] Dr. Juliocesar Young MCH (RBC) [Entitic mass] 30.5 pg Normal 26.7-34.0 [facility] Comment on above: Performed By: #### U JORI, PHOS, CMP, LDH #### [facility] [address] [place] [address] Dr. Juliocesar Young MCHC (RBC) [Mass/Vol] 33.1 g/dL Normal 29.9-35.2 [facility] Comment on above: Performed By: #### U JORI, PHOS, CMP, LDH #### [facility] [address] [place] [address] Dr. Juliocesar Young MCV (RBC) [Entitic vol] 92.0 fL Normal 81.0-99.0 [facility] Comment on above: Performed By: #### U JORI, PHOS, CMP, LDH #### [facility] [address] [place] [address] Dr. Juliocesar Young MONO # 0.7 103/ul Normal 0.3-0.8 [facility] Comment on above: Performed By: #### U JORI, PHOS, CMP, LDH #### [facility] [address] [place] [address] Dr. Juliocesar Young Monocytes/100 WBC (Bld) 2.9 % Normal 1.7-12.0 [facility] Comment on above: Performed By: #### U JORI, PHOS, CMP, LDH #### [facility] [address] [place] [address] Dr. Juliocesar Young NEUT # 5.7 103/ul Normal 1.4-6.5 [facility] Comment on above: Performed By: #### U JORI, PHOS, CMP, LDH #### [facility] [address] [place] [address] Dr. Juliocesar Young Neutrophils/100 WBC (Bld) 23.4 % Critically low 43.0-75.0 [facility] Comment on above: Performed By: #### U JORI, PHOS, CMP, LDH #### [facility] [address] [place] [address] Dr. Juliocesar Young Platelet mean volume (Bld) [Entitic vol] 10.5 fL Normal 9.5-13.5 [facility] Comment on above: Performed By: #### U JORI, PHOS, CMP, LDH #### [facility] [address] [address] [address] Juliocesar Young PLT 236 103/ul Normal 150-450 [facility] Comment on above: Performed By: #### U JORI, PHOS, CMP, LDH #### [facility] [address] [address] [address] Juliocesar Young RBC 4.76 106/ul Normal 4.20-5.40 [facility] Comment on above: Performed By: #### U JORI, PHOS, CMP, LDH #### [facility] [address] [place] [address] Dr. Juliocesar Young WBC 24.2 103/ul Critically high 4.0-11.0 [facility] Comment on above: Performed By: #### U JORI, PHOS, CMP, LDH #### [facility] [address] [address] [address] Juliocesar Young LDHon 12-29-2021 LDH 171 U/L Normal 81-234 [facility] Comment on above: Performed By: #### U JORI, PHOS, CMP, LDH #### [facility] [address] [address] [address] Juliocesar Young PHOSPHORUSon 12-29-2021 Phosphate [Mass/Vol] 3.4 mg/dL Normal 2.6-4.7 [facility] Comment on above: Performed By: #### L DH, CMP, PHOS, URIC #### [facility] [address] [place] [address] Dr. Juliocesar Young PROF 14(COMP METB)on 022 Albumin [Mass/Vol] 3.6 g/dL Normal 3.4-5.0 [facility] Comment on above: Performed By: #### L DH, CMP, PHOS, URIC #### [facility] [address] [place] [address] Dr. Juliocesar Young Albumin/Globulin [Mass ratio] 0.9 {ratio} Normal [facility] Comment on above: Performed By: #### L DH, CMP, PHOS, URIC #### [facility] [address] [place] [address] Dr. Juliocesar Young ALP [Catalytic activity/Vol] 91 U/L Normal 46-116 [facility] Comment on above: Performed By: #### L DH, CMP, PHOS, URIC #### [facility] [address] [place] [address] Dr. Juliocesar Young ALT [Catalytic activity/Vol] 25 U/L Normal 14-59 [facility] Comment on above: Performed By: #### L DH, CMP, PHOS, URIC #### [facility] [address] [place] [address] Dr. Juliocesar Young Anion gap [Moles/Vol] 13.4 mmol/L Normal [facility] Comment on above: Performed By: #### L DH, CMP, PHOS, URIC #### [facility] [address] [place] [address] Dr. Juliocesar Young AST [Catalytic activity/Vol] 12 U/L Critically low 15-37 [facility] Comment on above: Performed By: #### L DH, CMP, PHOS, URIC #### [facility] [address] [place] [address] Dr. Juliocesar Young Bilirubin [Mass/Vol] 0.5 mg/dL Normal 0.2-1.0 [facility] Comment on above: Performed By: #### L DH, CMP, PHOS, URIC #### [facility] [address] [place] [address] Dr. Juliocesar Young Calcium [Mass/Vol] 9.2 mg/dL Normal 8.5-10.[address] [facility] Comment on above: Performed By: #### L DH, CMP, PHOS, URIC #### [facility] [address] [place] [address] Dr. Juliocesar Young Chloride [Moles/Vol] 104 mmol/L Normal 98-107 [facility] Comment on above: Performed By: #### L DH, CMP, PHOS, URIC #### [facility] [address] [address] [address] Juliocesar Young CO2 [Moles/Vol] 24.6 mmol/L Normal 21.0-32.0 [facility] Comment on above: Performed By: #### L DH, CMP, PHOS, URIC #### [facility] [address] [address] [address] Juliocesar Young Creatinine [Mass/Vol] 0.60 mg/dL Normal 0.55-1.02 [facility] Comment on above: Performed By: #### L DH, CMP, PHOS, URIC #### [facility] [address] [address] [address] Juliocesar Young EGFR-AF SYRIAN >60 Normal >=60 [facility] Comment on above: Performed By: #### L DH, CMP, PHOS, URIC #### [facility] [address] [address] [address] Juliocesar Young EGFR-NON AF SYRIAN >60 Normal >=60 [facility] Comment on above: Performed By: #### L DH, CMP, PHOS, URIC #### [facility] [address] [address] [address] Juliocesar Young Globulin (S) [Mass/Vol] 3.9 g/dL Normal [facility] Comment on above: Performed By: #### L DH, CMP, PHOS, URIC #### [facility] [address] [address] [address] Juliocesar Young Glucose [Mass/Vol] 100 mg/dL Normal 74-106 [facility] Comment on above: Performed By: #### L DH, CMP, PHOS, URIC #### [facility] [address] [address] [address] Juliocesar Young Potassium [Moles/Vol] 4.0 mmol/L Normal 3.5-5.1 [facility] Comment on above: Performed By: #### L DH, CMP, PHOS, URIC #### [facility] [address] [address] [address] Juliocesar Young Protein [Mass/Vol] 7.5 g/dL Normal 6.4-8.[address] [facility] Comment on above: Performed By: #### L DH, CMP, PHOS, URIC #### [facility] [address] [place] [address] Dr. Juliocesar Young Sodium [Moles/Vol] 138 mmol/L Normal 136-[address] [facility] Comment on above: Performed By: #### L DH, CMP, PHOS, URIC #### [facility] [address] [place] [address] Dr. Juliocesar Young Urea nitrogen [Mass/Vol] 6.0 mg/dL Critically low 7.0-18.0 [facility] Comment on above: Performed By: #### L DH, CMP, PHOS, URIC #### [facility] [address] [place] [address] Dr. Juliocesar Young Urea nitrogen/Creatinine [Mass ratio] 10.0 mg/mg Normal [facility] Comment on above: Performed By: #### L DH, CMP, PHOS, URIC #### [facility] [address] [place] [address] Dr. Juliocesar Young URIC ACID SERUMon 12-29-2021 Urate [Mass/Vol] 2.6 mg/dL Normal 2.6-6.0 [facility] Comment on above: Performed By: #### L DH, CMP, PHOS, URIC #### [facility] [address] [place] [address] Dr. Juliocesar Young CBC AUTO DIFFon 12-20-2021 BASO # 0.0 103/ul Normal 0.0-0.1 [facility] Comment on above: Performed By: #### O VAPE #### [facility] [address] [place] [address] Dr. Juliocesar Young Basophils/100 WBC (Bld) 0.1 % Critically low 0.2-2.0 [facility] Comment on above: Performed By: #### O VAPE #### [facility] [address] [place] [address] Dr. Juliocesar Young EO # 0.2 103/ul Normal 0.0-0.7 [facility] Comment on above: Performed By: #### O VAPE #### [facility] [address] [place] [address] Dr. Juliocesar Young Eosinophils/100 WBC (Bld) 0.6 % Critically low 0.9-7.0 [facility] Comment on above: Performed By: #### O VAPE #### [facility] [address] [place] [address] Dr. Juliocesar Young Erythrocyte distribution width (RBC) [Ratio] 14.6 % Normal 11.0-15.0 [facility] Comment on above: Performed By: #### O VAPE #### [facility] [address] [place] [address] Dr. Juliocesar Young Hematocrit (Bld) [Volume fraction] 44.1 % Normal 36.0-48.0 [facility] Comment on above: Performed By: #### O VAPE #### [facility] [address] [place] [address] Dr. Juliocesar Young Hemoglobin (Bld) [Mass/Vol] 14.7 g/dL Normal 12.0-16.0 [facility] Comment on above: Performed By: #### O VAPE #### [facility] [address] [place] [address] Dr. Juliocesar Young IG # 0.07 10e3/ul Critically high 0.00-0.03 [facility] Comment on above: Performed By: #### O VAPE #### [facility] [address] [place] [address] Dr. Juliocesar Young IG % 0.2 % Normal 0.0-0.5 [facility] Comment on above: Performed By: #### O VAPE #### [facility] [address] [place] [address] Dr. Juliocesar Young LYMPH # 27.2 103/ul Critically high 1.2-3.8 [facility] Comment on above: Performed By: #### O VAPE #### [facility] [address] [place] [address] Dr. Juliocesar Young Lymphocytes/100 WBC (Bld) 78.1 % Critically high 20.5-60.0 [facility] Comment on above: Performed By: #### O VAPE #### [facility] [address] [place] [address] Dr. Juliocesar Young MANUAL DIFF REQ YES Normal [facility] Comment on above: Performed By: #### O VAPE #### [facility] [address] [place] [address] Dr. Juliocesar Young MCH (RBC) [Entitic mass] 30.3 pg Normal 26.7-34.0 [facility] Comment on above: Performed By: #### O VAPE #### [facility] [address] [place] [address] Dr. Juliocesar Young MCHC (RBC) [Mass/Vol] 33.3 g/dL Normal 29.9-35.2 [facility] Comment on above: Performed By: #### O VAPE #### [facility] [address] [place] [address] Dr. Juliocesar Young MCV (RBC) [Entitic vol] 90.9 fL Normal 81.0-99.0 [facility] Comment on above: Performed By: #### O VAPE #### [facility] [address] [place] [address] Dr. Juliocesar Young MONO # 0.9 103/ul Critically high 0.3-0.8 [facility] Comment on above: Performed By: #### O VAPE #### [facility] [address] [place] [address] Dr. Juliocesar Young Monocytes/100 WBC (Bld) 2.5 % Normal 1.7-12.0 [facility] Comment on above: Performed By: #### O VAPE #### [facility] [address] [place] [address] Dr. Juliocesar Young NEUT # 6.4 103/ul Normal 1.4-6.5 [facility] Comment on above: Performed By: #### O VAPE #### [facility] [address] [place] [address] Dr. Juliocesar Young Neutrophils/100 WBC (Bld) 18.5 % Critically low 43.0-75.0 [facility] Comment on above: Performed By: #### O VAPE #### [facility] [address] [place] [address] Dr. Juliocesar Young Platelet mean volume (Bld) [Entitic vol] 9.9 fL Normal 9.5-13.5 [facility] Comment on above: Performed By: #### O VAPE #### [facility] [address] [place] [address] Dr. Juliocesar Young PLT 220 103/ul Normal 150-450 [facility] Comment on above: Performed By: #### O VAPE #### [facility] [address] [place] [address] Dr. Juliocesar Young RBC 4.85 106/ul Normal 4.20-5.40 [facility] Comment on above: Performed By: #### O VAPE #### [facility] [address] [place] [address] Dr. Juliocesar Young WBC 34.8 103/ul Critically high 4.0-11.0 [facility] Comment on above: Result Comment: test repeated critical value verified Performed By: #### O VAPE #### [facility] [address] [place] [address] Dr. Juliocesar Young DIFFERENTIAL MANUALon 2021 ATYPICAL LYMPH # Normal [facility] Comment on above: Performed By: #### U JORI, PHOS, CMP, LDH #### [facility] [address] [place] [address] Dr. Juliocesar Young ATYPICAL LYMPH % Normal [facility] Comment on above: Performed By: #### U JORI, PHOS, CMP, LDH #### [facility] [address] [place] [address] Dr. Juliocesar Young BAND # 0.0 103/ul Normal 0.0-0.3 [facility] Comment on above: Performed By: #### U JORI, PHOS, CMP, LDH #### [facility] [address] [place] [address] Dr. Juliocesar Young BAND % 0 % Normal 0-5 [facility] Comment on above: Performed By: #### U JORI, PHOS, CMP, LDH #### [facility] [address] [address] [address] Juliocesar Young BASOM # 0.00 103/ul Normal 0.00-0.10 [facility] Comment on above: Performed By: #### U JORI, PHOS, CMP, LDH #### [facility] [address] [address] [address] Juliocesar Young BASOM % 0.0 % Critically low 0.2-2.0 [facility] Comment on above: Performed By: #### U JORI, PHOS, CMP, LDH #### [facility] [address] [address] [address] Juliocesar Young BLAST # Normal [facility] Comment on above: Performed By: #### U JORI, PHOS, CMP, LDH #### [facility] [address] [address] [address] Juliocesar Young BLAST % Normal [facility] Comment on above: Performed By: #### U JORI, PHOS, CMP, LDH #### [facility] [address] [address] [address] Juliocesar Young CORRECTED WBC Normal 4.0-11.0 [facility] Comment on above: Performed By: #### U JORI, PHOS, CMP, LDH #### [facility] [address] [address] [address] Juliocesar Young EOS # 0.35 103/ul Normal 0.00-0.70 [facility] Comment on above: Performed By: #### U JORI, PHOS, CMP, LDH #### [facility] [address] [address] [address] Juliocesar Young EOS% 1.0 % Normal 0.9-7.0 [facility] Comment on above: Performed By: #### U JORI, PHOS, CMP, LDH #### [facility] [address] [address] [address] Juliocesar Young LYMPHM # 28.80 103/ul Critically high 1.20-3.80 [facility] Comment on above: Performed By: #### U JORI, PHOS, CMP, LDH #### [facility] [address] [address] [address] Juliocesar Young LYMPHM% 83.0 % Critically high 20.5-60.0 [facility] Comment on above: Performed By: #### U JORI, PHOS, CMP, LDH #### [facility] [address] [address] [address] Juliocesar Young METAMYELOCYTE # Normal [facility] Comment on above: Performed By: #### U JORI, PHOS, CMP, LDH #### [facility] [address] [address] [address] Juliocesar Young METAMYELOCYTE % Normal [facility] Comment on above: Performed By: #### U JORI, PHOS, CMP, LDH #### [facility] [address] [address] [address] Juliocesar Young MONOM# 0.69 103/ul Normal 0.30-0.80 [facility] Comment on above: Performed By: #### U JORI, PHOS, CMP, LDH #### [facility] [address] [address] [address] Juliocesar Young MONOM% 2.0 % Normal 1.7-12.0 [facility] Comment on above: Performed By: #### U JORI, PHOS, CMP, LDH #### [facility] [address] [address] [address] Juliocesar Young MYELOCYTE # Normal [facility] Comment on above: Performed By: #### U JORI, PHOS, CMP, LDH #### [facility] [address] [address] [address] Juliocesar Young MYELOCYTE % Normal [facility] Comment on above: Performed By: #### U JORI, PHOS, CMP, LDH #### [facility] [address] [address] [address] Juliocesar Young NRBC Normal [facility] Comment on above: Performed By: #### U JORI, PHOS, CMP, LDH #### [facility] [address] [address] [address] Juliocesar Young SEG # 4.86 103/ul Normal 1.40-6.50 [facility] Comment on above: Performed By: #### U JORI, PHOS, CMP, LDH #### [facility] [address] [place] [address] Dr. Juliocesar Young SEG % 14.0 % Critically low 43.0-75.0 [facility] Comment on above: Performed By: #### U JORI, PHOS, CMP, LDH #### [facility] [address] [place] [address] Dr. Juliocesar Young WBC 34.7 103/ul Critically high 4.0-11.0 [facility] Comment on above: Performed By: #### U JORI, PHOS, CMP, LDH #### [facility] [address] [place] [address] Dr. Juliocesar Young PROF 14(COMP METB)on 022 Albumin [Mass/Vol] 3.5 g/dL Normal 3.4-5.0 [facility] Comment on above: Performed By: #### C MP #### [facility] [address] [place] [address] Dr. Juliocesar Young Albumin/Globulin [Mass ratio] 0.9 {ratio} Normal [facility] Comment on above: Performed By: #### C MP #### [facility] [address] [place] [address] Dr. Juliocesar Young ALP [Catalytic activity/Vol] 95 U/L Normal 46-116 [facility] Comment on above: Performed By: #### C MP #### [facility] [address] [place] [address] Dr. Juliocesar Young ALT [Catalytic activity/Vol] 27 U/L Normal 14-59 [facility] Comment on above: Performed By: #### C MP #### [facility] [address] [place] [address] Dr. Juliocesar Young Anion gap [Moles/Vol] 13.1 mmol/L Normal [facility] Comment on above: Performed By: #### C MP #### [facility] [address] [address] [address] Juliocesar Young AST [Catalytic activity/Vol] 13 U/L Critically low 15-37 [facility] Comment on above: Performed By: #### C MP #### [facility] [address] [place] [address] Dr. Juliocesar Young Bilirubin [Mass/Vol] 0.4 mg/dL Normal 0.2-1.0 [facility] Comment on above: Performed By: #### C MP #### [facility] [address] [place] [address] Dr. Juliocesar Young Calcium [Mass/Vol] 8.6 mg/dL Normal 8.5-10.1 [facility] Comment on above: Performed By: #### C MP #### [facility] [address] [place] [address] Dr. Juliocesar Young Chloride [Moles/Vol] 104 mmol/L Normal 98-107 [facility] Comment on above: Performed By: #### C MP #### [facility] [address] [place] [address] Dr. Juliocesar Young CO2 [Moles/Vol] 24.7 mmol/L Normal 21.0-32.0 [facility] Comment on above: Performed By: #### C MP #### [facility] [address] [place] [address] Dr. Juliocesar Young Creatinine [Mass/Vol] 0.60 mg/dL Normal 0.55-1.02 [facility] Comment on above: Performed By: #### C MP #### [facility] [address] [place] [address] Dr. Juliocesar Young EGFR-AF SYRIAN >60 Normal >=60 [facility] Comment on above: Performed By: #### C MP #### [facility] [address] [place] [address] Dr. Juliocesar Young EGFR-NON AF SYRIAN >60 Normal >=60 [facility] Comment on above: Performed By: #### C MP #### [facility] [address] [place] [address] Dr. Juliocesar Young Globulin (S) [Mass/Vol] 3.9 g/dL Normal [facility] Comment on above: Performed By: #### C MP #### [facility] [address] [place] [address] Dr. Juliocesar Young Glucose [Mass/Vol] 91 mg/dL Normal 74-106 [facility] Comment on above: Performed By: #### C MP #### [facility] [address] [address] [address] Juliocesar Young Potassium [Moles/Vol] 3.8 mmol/L Normal 3.5-5.1 [facility] Comment on above: Performed By: #### C MP #### [facility] [address] [place] [address] Dr. Juliocesar Young Protein [Mass/Vol] 7.4 g/dL Normal 6.4-8.2 [facility] Comment on above: Performed By: #### C MP #### [facility] [address] [place] [address] Dr. Juliocesar Young Sodium [Moles/Vol] 138 mmol/L Normal 136-145 [facility] Comment on above: Performed By: #### C MP #### [facility] [address] [place] [address] Dr. Juliocesar Young Urea nitrogen [Mass/Vol] 11.0 mg/dL Normal 7.0-18.0 [facility] Comment on above: Performed By: #### C MP #### [facility] [address] [place] [address] Dr. Juliocesar Young Urea nitrogen/Creatinine [Mass ratio] 18.3 mg/mg Normal [facility] Comment on above: Performed By: #### C MP #### [facility] [address] [place] [address] Dr. Juliocesar Young CBC W MANUAL DIFFon 12-13-19 22 ATYPICAL LYMPH # Normal [facility] Comment on above: Performed By: #### U JORI, PHOS, CMP, LDH #### [facility] [address] [place] [address] Dr. Juliocesar Young ATYPICAL LYMPH % Normal [facility] Comment on above: Performed By: #### U JORI, PHOS, CMP, LDH #### [facility] [address] [address] [address] Juliocesar Young BAND # Normal 0.0-0.3 [facility] Comment on above: Performed By: #### U JORI, PHOS, CMP, LDH #### [facility] [address] [address] [address] Juliocesar Young BAND % Normal 0-5 [facility] Comment on above: Performed By: #### U JORI, PHOS, CMP, LDH #### [facility] [address] [address] [address] Juliocesar Young BASOM # 0.00 103/ul Normal 0.00-0.10 [facility] Comment on above: Performed By: #### U JORI, PHOS, CMP, LDH #### [facility] [address] [place] [address] Dr. Juliocesar Young BASOM % 0.0 % Critically low 0.2-2.0 [facility] Comment on above: Performed By: #### U JORI, PHOS, CMP, LDH #### [facility] [address] [address] [address] Juliocesar Young BLAST # Normal [facility] Comment on above: Performed By: #### U JORI, PHOS, CMP, LDH #### [facility] [address] [place] [address] Dr. Juliocesar Young BLAST % Normal [facility] Comment on above: Performed By: #### U JORI, PHOS, CMP, LDH #### [facility] [address] [place] [address] Dr. Juliocesar Young CORRECTED WBC Normal 4.0-11.0 [facility] Comment on above: Performed By: #### U JORI, PHOS, CMP, LDH #### [facility] [address] [place] [address] Dr. Juliocesar Young EOS # 0.00 103/ul Normal 0.00-0.70 [facility] Comment on above: Performed By: #### U JORI, PHOS, CMP, LDH #### [facility] [address] [address] [address] Juliocesar Young EOS% 0.0 % Critically low 0.9-7.0 [facility] Comment on above: Performed By: #### U JORI, PHOS, CMP, LDH #### [facility] [address] [address] [address] Juliocesar Young HCT 44.1 % Normal 36.0-48.0 [facility] Comment on above: Performed By: #### U JORI, PHOS, CMP, LDH #### [facility] [address] [address] [address] Juliocesar Young HGB 14.1 g/dl Normal 12.0-16.0 [facility] Comment on above: Performed By: #### U JORI, PHOS, CMP, LDH #### [facility] [address] [address] [address] Juliocesar Young LYMPHM # 39.95 103/ul Critically high 1.20-3.80 [facility] Comment on above: Performed By: #### U JORI, PHOS, CMP, LDH #### [facility] [address] [address] [address] Juliocesar Young LYMPHM% 85.0 % Critically high 20.5-60.0 [facility] Comment on above: Performed By: #### U JORI, PHOS, CMP, LDH #### [facility] [address] [address] [address] Juliocesar Young MCH 30.1 pg Normal 26.7-34.0 [facility] Comment on above: Performed By: #### U JORI, PHOS, CMP, LDH #### [facility] [address] [address] [address] Juliocesar Young MCHC 32.0 g/dl Normal 29.9-35.2 [facility] Comment on above: Performed By: #### U JORI, PHOS, CMP, LDH #### [facility] [address] [address] [address] Juliocesar Young MCV 94.2 fL Normal 81.0-99.0 [facility] Comment on above: Performed By: #### U JORI, PHOS, CMP, LDH #### [facility] [address] [address] [address] Juliocesar Young METAMYELOCYTE # Normal [facility] Comment on above: Performed By: #### U JORI, PHOS, CMP, LDH #### [facility] [address] [address] [address] Juliocesar Young METAMYELOCYTE % Normal [facility] Comment on above: Performed By: #### U JORI, PHOS, CMP, LDH #### [facility] [address] [address] [address] Juliocesar Young MONOM# 0.94 103/ul Critically high 0.30-0.80 [facility] Comment on above: Performed By: #### U JORI, PHOS, CMP, LDH #### [facility] [address] [address] [address] Juliocesar Young MONOM% 2.0 % Normal 1.7-12.0 [facility] Comment on above: Performed By: #### U JORI, PHOS, CMP, LDH #### [facility] [address] [address] [address] Juliocesar Young MPV 10.6 fL Normal 9.5-13.5 [facility] Comment on above: Performed By: #### U JORI, PHOS, CMP, LDH #### [facility] [address] [address] [address] Juliocesar Young MYELOCYTE # Normal [facility] Comment on above: Performed By: #### U JORI, PHOS, CMP, LDH #### [facility] [address] [address] [address] Juliocesar Young MYELOCYTE % Normal [facility] Comment on above: Performed By: #### U JORI, PHOS, CMP, LDH #### [facility] [address] [address] [address] Juliocesar Young NRBC Normal [facility] Comment on above: Performed By: #### U JORI, PHOS, CMP, LDH #### [facility] [address] [address] [address] Juliocesar Young PLT 202 103/ul Normal 150-450 [facility] Comment on above: Performed By: #### U JORI, PHOS, CMP, LDH #### [facility] [address] [address] [address] Juliocesar Young RBC 4.68 106/ul Normal 4.20-5.40 [facility] Comment on above: Performed By: #### U JORI, PHOS, CMP, LDH #### [facility] [address] [address] [address] Juliocesar Young RDW 14.6 % Normal 11.0-15.0 [facility] Comment on above: Performed By: #### U JORI, PHOS, CMP, LDH #### [facility] [address] [place] [address] Dr. Juliocesar Young SEG # 6.11 103/ul Normal 1.40-6.50 [facility] Comment on above: Performed By: #### U JORI, PHOS, CMP, LDH #### [facility] [address] [place] [address] Dr. Juliocesar Young SEG % 13.0 % Critically low 43.0-75.0 The [facility] Comment on above: Performed By: #### U JORI, PHOS, CMP, LDH #### [facility] [address] [place] [address] Dr. Juliocesar Young SMUDGE CELLS SEEN Normal [facility] Comment on above: Performed By: #### U JORI, PHOS, CMP, LDH #### [facility] [address] [place] [address] Dr. Juliocesar Young WBC 47.0 103/ul Critically high 4.0-11.0 [facility] Comment on above: Performed By: #### U JORI, PHOS, CMP, LDH #### [facility] [address] [place] [address] Dr. Juliocesar Young LDHon 12-12-2021 LDH 165 U/L Normal 81-234 [facility] Comment on above: Performed By: #### L ACTFQ #### [facility] [address] [address] [address] Juliocesar Young PHOSPHORUSon 12-12-2021 Phosphate [Mass/Vol] 3.0 mg/dL Normal 2.6-4.7 [facility] Comment on above: Performed By: #### L ACTFQ #### [facility] [address] [place] [address] Dr. Juliocesar Young PROF 14(COMP METB)on 022 Albumin [Mass/Vol] 3.5 g/dL Normal 3.4-5.0 [facility] Comment on above: Performed By: #### L ACTFQ #### [facility] [address] [address] [address] Juliocesar Young Albumin/Globulin [Mass ratio] 1.0 {ratio} Normal [facility] Comment on above: Performed By: #### L ACTFQ #### [facility] [address] [place] [address] Dr. Juliocesar Young ALP [Catalytic activity/Vol] 84 U/L Normal 46-116 [facility] Comment on above: Performed By: #### L ACTFQ #### [facility] [address] [address] [address] Juliocesar Young ALT [Catalytic activity/Vol] 21 U/L Normal 14-59 [facility] Comment on above: Performed By: #### L ACTFQ #### [facility] [address] [place] [address] Dr. Juliocesar Young Anion gap [Moles/Vol] 9.3 mmol/L Normal [facility] Comment on above: Performed By: #### L ACTFQ #### [facility] [address] [place] [address] Dr. Juliocesar Young AST [Catalytic activity/Vol] 11 U/L Critically low 15-37 [facility] Comment on above: Performed By: #### L ACTFQ #### [facility] [address] [place] [address] Dr. Juliocesar Young Bilirubin [Mass/Vol] 0.5 mg/dL Normal 0.2-1.0 [facility] Comment on above: Performed By: #### L ACTFQ #### [facility] [address] [address] [address] Juliocesar Young Calcium [Mass/Vol] 8.2 mg/dL Critically low 8.5-10.1 [facility] Comment on above: Performed By: #### L ACTFQ #### [facility] [address] [address] [address] Juliocesar Young Chloride [Moles/Vol] 106 mmol/L Normal 98-107 [facility] Comment on above: Performed By: #### L ACTFQ #### [facility] [address] [address] [address] Juliocesar Young CO2 [Moles/Vol] 24.7 mmol/L Normal 21.0-32.0 [facility] Comment on above: Performed By: #### L ACTFQ #### [facility] [address] [place] [address] Dr. Juliocesar Young Creatinine [Mass/Vol] 0.53 mg/dL Critically low 0.55-1.02 [facility] Comment on above: Performed By: #### L ACTFQ #### [facility] [address] [address] [address] Juliocesar Young EGFR-AF SYRIAN >60 Normal >=60 [facility] Comment on above: Performed By: #### L ACTFQ #### [facility] [address] [address] [address] Juliocesar Young EGFR-NON AF SYRIAN >60 Normal >=60 [facility] Comment on above: Performed By: #### L ACTFQ #### [facility] [address] [address] [address] Juliocesar Young Globulin (S) [Mass/Vol] 3.6 g/dL Normal [facility] Comment on above: Performed By: #### L ACTFQ #### [facility] [address] [address] [address] Juliocesar Young Glucose [Mass/Vol] 102 mg/dL Normal 74-106 [facility] Comment on above: Performed By: #### L ACTFQ #### [facility] [address] [address] [address] Juliocesar Young Potassium [Moles/Vol] 4.0 mmol/L Normal 3.5-5.1 [facility] Comment on above: Performed By: #### L ACTFQ #### [facility] [address] [address] [address] Juliocesar Young Protein [Mass/Vol] 7.1 g/dL Normal 6.4-8.[address] [facility] Comment on above: Performed By: #### L ACTFQ #### [facility] [address] [place] [address] Dr. Juliocesar Young Sodium [Moles/Vol] 136 mmol/L Normal 136-145 [facility] Comment on above: Performed By: #### L ACTFQ #### [facility] [address] [place] [address] Dr. Juliocesar Young Urea nitrogen [Mass/Vol] 9.0 mg/dL Normal 7.0-18.0 [facility] Comment on above: Performed By: #### L ACTFQ #### [facility] [address] [address] [address] Juliocesar Young Urea nitrogen/Creatinine [Mass ratio] 17.0 mg/mg Normal [facility] Comment on above: Performed By: #### L ACTFQ #### [facility] [address] [place] [address] Dr. Juliocesar Young URIC ACID SERUMon 12-12-2021 Urate [Mass/Vol] 2.3 mg/dL Critically low 2.6-6.0 [facility] Comment on above: Performed By: #### L ACTFQ #### [facility] [address] [address] [address] Juliocesar Young HEPATITIS B CORE ANTIBODYon 12-05-2021 HEP B CORE AB Non-Reactive Normal NONREACTIVE [facility] Comment on above: Performed By: #### 3 [id number] #### [facility] [address] [place] [address], [facility] CBC W MANUAL DIFFon 12-04-19 22 ATYPICAL LYMPH # Normal [facility] Comment on above: Performed By: #### U JORI, PHOS, CMP, LDH #### [facility] [address] [place] [address] Dr. Juliocesar Young ATYPICAL LYMPH % Normal [facility] Comment on above: Performed By: #### U JORI, PHOS, CMP, LDH #### [facility] [address] [address] [address] Juliocesar Young BAND # 0.0 103/ul Normal 0.0-0.3 [facility] Comment on above: Performed By: #### U JORI, PHOS, CMP, LDH #### [facility] [address] [place] [address] Dr. Juliocesar Young BAND % 0 % Normal 0-5 [facility] Comment on above: Performed By: #### U JORI, PHOS, CMP, LDH #### [facility] [address] [place] [address] Dr. Juliocesar oYung BASOM # 0.00 103/ul Normal 0.00-0.10 [facility] Comment on above: Performed By: #### U JORI, PHOS, CMP, LDH #### [facility] [address] [place] [address] Dr. Juliocesar Young BASOM % 0.0 % Critically low 0.2-2.0 [facility] Comment on above: Performed By: #### U JORI, PHOS, CMP, LDH #### [facility] [address] [place] [address] Dr. Juliocesar Young BLAST # Normal [facility] Comment on above: Performed By: #### U JORI, PHOS, CMP, LDH #### [facility] [address] [place] [address] Dr. Juliocesar Young BLAST % Normal [facility] Comment on above: Performed By: #### U JORI, PHOS, CMP, LDH #### [facility] [address] [place] [address] Dr. Juliocesar Young CORRECTED WBC Normal 4.0-11.0 [facility] Comment on above: Performed By: #### U JORI, PHOS, CMP, LDH #### [facility] [address] [address] [address] Juliocesar Young EOS # 0.00 103/ul Normal 0.00-0.70 [facility] Comment on above: Performed By: #### U JORI, PHOS, CMP, LDH #### [facility] [address] [address] [address] Juliocesar Young EOS% 0.0 % Critically low 0.9-7.0 [facility] Comment on above: Performed By: #### U JORI, PHOS, CMP, LDH #### [facility] [address] [address] [address] Juliocesar Young HCT 44.6 % Normal 36.0-48.0 [facility] Comment on above: Performed By: #### U JORI, PHOS, CMP, LDH #### [facility] [address] [place] [address] Dr. Juliocesar Young HGB 14.4 g/dl Normal 12.0-16.0 [facility] Comment on above: Performed By: #### U JORI, PHOS, CMP, LDH #### [facility] [address] [address] [address] Juliocesar Young LYMPHM # 53.68 103/ul Critically high 1.20-3.80 [facility] Comment on above: Performed By: #### U JORI, PHOS, CMP, LDH #### [facility] [address] [address] [address] Juliocesar Young LYMPHM% 88.0 % Critically high 20.5-60.0 [facility] Comment on above: Performed By: #### U JORI, PHOS, CMP, LDH #### [facility] [address] [place] [address] Dr. Juliocesar Young MCH 29.9 pg Normal 26.7-34.0 [facility] Comment on above: Performed By: #### U JORI, PHOS, CMP, LDH #### [facility] [address] [address] [address] Juliocesar Young MCHC 32.3 g/dl Normal 29.9-35.2 [facility] Comment on above: Performed By: #### U JORI, PHOS, CMP, LDH #### [facility] [address] [place] [address] Dr. Juliocesar Young MCV 92.5 fL Normal 81.0-99.0 [facility] Comment on above: Performed By: #### U JORI, PHOS, CMP, LDH #### [facility] [address] [address] [address] Juliocesar Young METAMYELOCYTE # Normal [facility] Comment on above: Performed By: #### U JORI, PHOS, CMP, LDH #### [facility] [address] [place] [address] Dr. Juliocesar Young METAMYELOCYTE % Normal [facility] Comment on above: Performed By: #### U JORI, PHOS, CMP, LDH #### [facility] [address] [place] [address] Dr. Juliocesar Young MONOM# 0.00 103/ul Critically low 0.30-0.80 [facility] Comment on above: Performed By: #### U JORI, PHOS, CMP, LDH #### [facility] [address] [place] [address] Dr. Juliocesar Young MONOM% 0.0 % Critically low 1.7-12.0 [facility] Comment on above: Performed By: #### U JORI, PHOS, CMP, LDH #### [facility] [address] [address] [address] Juliocesar Young MPV 10.4 fL Normal 9.5-13.5 [facility] Comment on above: Performed By: #### U JORI, PHOS, CMP, LDH #### [facility] [address] [place] [address] Dr. Juliocesar Young MYELOCYTE # Normal [facility] Comment on above: Performed By: #### U JORI, PHOS, CMP, LDH #### [facility] [address] [place] [address] Dr. Juliocesar Young MYELOCYTE % Normal [facility] Comment on above: Performed By: #### U JORI, PHOS, CMP, LDH #### [facility] [address] [address] [address] Juliocesar Young NR Normal [facility] Comment on above: Performed By: #### U JORI, PHOS, CMP, LDH #### [facility] [address] [address] [address] Juliocesar Young PLT 224 103/ul Normal 150-450 [facility] Comment on above: Performed By: #### U JORI, PHOS, CMP, LDH #### [facility] [address] [address] [address] Juliocesar Young RBC 4.82 106/ul Normal 4.20-5.40 [facility] Comment on above: Performed By: #### U JORI, PHOS, CMP, LDH #### [facility] [address] [address] [address] Juliocesar Young RDW 14.4 % Normal 11.0-15.0 [facility] Comment on above: Performed By: #### U JORI, PHOS, CMP, LDH #### [facility] [address] [address] [address] Juliocesar Young SEG # 7.32 103/ul Critically high 1.40-6.50 [facility] Comment on above: Performed By: #### U JORI, PHOS, CMP, LDH #### [facility] [address] [address] [address] Juliocesar Young SEG % 12.0 % Critically low 43.0-75.0 The [facility] Comment on above: Performed By: #### U JORI, PHOS, CMP, LDH #### [facility] [address] [address] [address] Juliocesar Young WBC 61.0 103/ul Critically high 4.0-11.0 [facility] Comment on above: Performed By: #### U JORI, PHOS, CMP, LDH #### [facility] [address] [address] [address] Juliocesar Young LDHon 12-03-2021 LDH 183 U/L Normal 81-234 [facility] Comment on above: Performed By: #### L ACTFQ #### [facility] [address] [place] [address] Dr. Juliocesar Young PHOSPHORUSon 12-03-2021 Phosphate [Mass/Vol] 3.3 mg/dL Normal 2.6-4.7 [facility] Comment on above: Performed By: #### U JORI, PHOS, CMP, LDH #### [facility] [address] [place] [address] Dr. Juliocesar Young PROF 14(COMP METB)on 022 Albumin [Mass/Vol] 3.7 g/dL Normal 3.4-5.0 [facility] Comment on above: Performed By: #### L ACTFQ #### [facility] [address] [place] [address] Dr. Juliocesar Young Albumin/Globulin [Mass ratio] 1.0 {ratio} Normal [facility] Comment on above: Performed By: #### L ACTFQ #### [facility] [address] [place] [address] Dr. Juliocesar Young ALP [Catalytic activity/Vol] 82 U/L Normal 46-116 [facility] Comment on above: Performed By: #### L ACTFQ #### [facility] [address] [place] [address] Dr. Juliocesar Young ALT [Catalytic activity/Vol] 23 U/L Normal 14-59 [facility] Comment on above: Performed By: #### L ACTFQ #### [facility] [address] [place] [address] Dr. Juliocesar Young Anion gap [Moles/Vol] 14.0 mmol/L Normal [facility] Comment on above: Performed By: #### L ACTFQ #### [facility] [address] [place] [address] Dr. Juliocesar Young AST [Catalytic activity/Vol] 12 U/L Critically low 15-37 [facility] Comment on above: Performed By: #### L ACTFQ #### [facility] [address] [place] [address] Dr. Juliocesar Young Bilirubin [Mass/Vol] 0.4 mg/dL Normal 0.2-1.0 [facility] Comment on above: Performed By: #### L ACTFQ #### [facility] [address] [place] [address] Dr. Juliocesar Young Calcium [Mass/Vol] 8.6 mg/dL Normal 8.5-10.1 [facility] Comment on above: Performed By: #### L ACTFQ #### [facility] [address] [address] [address] Juliocesar Young Chloride [Moles/Vol] 104 mmol/L Normal 98-107 [facility] Comment on above: Performed By: #### L ACTFQ #### [facility] [address] [place] [address] Dr. Juliocesar Young CO2 [Moles/Vol] 26.2 mmol/L Normal 21.0-32.0 [facility] Comment on above: Performed By: #### L ACTFQ #### [facility] [address] [place] [address] Dr. Juliocesar Young Creatinine [Mass/Vol] 0.54 mg/dL Critically low 0.55-1.02 [facility] Comment on above: Performed By: #### L ACTFQ #### [facility] [address] [place] [address] Dr. Juliocesar Young EGFR-AF SYRIAN >60 Normal >=60 [facility] Comment on above: Performed By: #### L ACTFQ #### [facility] [address] [place] [address] Dr. Juliocesar Young EGFR-NON AF SYRIAN >60 Normal >=60 [facility] Comment on above: Performed By: #### L ACTFQ #### [facility] [address] [place] [address] Dr. Juliocesar Young Globulin (S) [Mass/Vol] 3.7 g/dL Normal [facility] Comment on above: Performed By: #### L ACTFQ #### [facility] [address] [place] [address] Dr. Juliocesar Young Glucose [Mass/Vol] 95 mg/dL Normal 74-106 [facility] Comment on above: Performed By: #### L ACTFQ #### [facility] [address] [address] [address] Juliocesar Young Potassium [Moles/Vol] 4.2 mmol/L Normal 3.5-5.1 [facility] Comment on above: Performed By: #### L ACTFQ #### [facility] [address] [place] [address] Dr. Juliocesar Young Protein [Mass/Vol] 7.4 g/dL Normal 6.1-8.[address] [facility] Comment on above: Performed By: #### L ACTFQ #### [facility] [address] [place] [address] Dr. Juliocesar Young Sodium [Moles/Vol] 140 mmol/L Normal 136-145 [facility] Comment on above: Performed By: #### L ACTFQ #### [facility] [address] [address] [address] Juliocesar Young Urea nitrogen [Mass/Vol] 9.0 mg/dL Normal 7.0-18.0 [facility] Comment on above: Performed By: #### L ACTFQ #### [facility] [address] [place] [address] Dr. Juliocesar Young Urea nitrogen/Creatinine [Mass ratio] 16.7 mg/mg Normal [facility] Comment on above: Performed By: #### L ACTFQ #### [facility] [address] [address] [address] Juliocesar Young URIC ACID SERUMon 12-03-2021 Urate [Mass/Vol] 1.9 mg/dL Critically low 2.5-6.2 [facility] Comment on above: Performed By: #### U JORI, PHOS, CMP, LDH #### [facility] [address] [place] [address] Dr. Juliocesar Young HEPATITIS B SURFACE ANTIBODY QUANTon 11-28-2021 HEP B SURF AB 15.43 mIU/ml Normal [facility] Comment on above: Result Comment: INTE RPRETATION: NONREACTIVE<8.00 mIU/mL INDETERMINATE8.00 - 12.00 mIU/mL REACTIVE>12 mIU/mL Performed By: #### 4 1661 #### [facility] [address] [facility]. [address] HEPATITIS B SURFACE ANTIGEN QUALon 11-28-2021 HEP B SURF AG QUAL Non-Reactive Normal NONREACTIVE [facility] Comment on above: Performed By: #### 3 1400 #### [facility] [address] [address] CBC W MANUAL DIFFon 11-26-19 ATYPICAL LYMPH # Normal [facility] Comment on above: Performed By: #### U JORI, PHOS, CMP, LDH #### [facility] [address] [address] [address] Juliocesar Young ATYPICAL LYMPH % Normal [facility] Comment on above: Performed By: #### U JORI, PHOS, CMP, LDH #### [facility] [address] [address] [address] Juliocesar Young BAND # 0.0 103/ul Normal 0.0-0.3 [facility] Comment on above: Performed By: #### U JORI, PHOS, CMP, LDH #### [facility] [address] [address] [address] Juliocesar Young BAND % 0 % Normal 0-5 [facility] Comment on above: Performed By: #### U JORI, PHOS, CMP, LDH #### [facility] [address] [address] [address] Juliocesar Young BASOM # 0.00 103/ul Normal 0.00-0.10 [facility] Comment on above: Performed By: #### U JORI, PHOS, CMP, LDH #### [facility] [address] [address] [address] Juliocesar Young BASOM % 0.0 % Critically low 0.2-2.0 The [facility] Comment on above: Performed By: #### U JORI, PHOS, CMP, LDH #### [facility] [address] [address] [address] Juliocesar Young BLAST # Normal [facility] Comment on above: Performed By: #### U JORI, PHOS, CMP, LDH #### [facility] [address] [address] [address] Juliocesar Young BLAST % Normal [facility] Comment on above: Performed By: #### U JORI, PHOS, CMP, LDH #### [facility] [address] [address] [address] Juliocesar Young CORRECTED WBC Normal 4.0-11.0 [facility] Comment on above: Performed By: #### U JORI, PHOS, CMP, LDH #### [facility] [address] [place] [address] Dr. Juliocesar Young EOS # 0.00 103/ul Normal 0.00-0.70 [facility] Comment on above: Performed By: #### U JORI, PHOS, CMP, LDH #### [facility] [address] [address] [address] Juliocesar Young EOS% 0.0 % Critically low 0.9-7.0 [facility] Comment on above: Performed By: #### U JORI, PHOS, CMP, LDH #### [facility] [address] [place] [address] Dr. Juliocesar Young HCT 41.6 % Normal 36.0-48.0 [facility] Comment on above: Performed By: #### U JORI, PHOS, CMP, LDH #### [facility] [address] [address] [address] Juliocesar Young HGB 13.6 g/dl Normal 12.0-16.0 [facility] Comment on above: Performed By: #### U JORI, PHOS, CMP, LDH #### [facility] [address] [address] [address] Juliocesar Young LYMPHM # 83.42 103/ul Critically high 1.20-3.80 [facility] Comment on above: Performed By: #### U JORI, PHOS, CMP, LDH #### [facility] [address] [address] [address] Juliocesar Young LYMPHM% 97.0 % Critically high 20.5-60.0 [facility] Comment on above: Performed By: #### U JORI, PHOS, CMP, LDH #### [facility] [address] [address] [address] Juliocesar Young MCH 30.6 pg Normal 26.7-34.0 [facility] Comment on above: Performed By: #### U JORI, PHOS, CMP, LDH #### [facility] [address] [address] [address] Juliocesar Young MCHC 32.7 g/dl Normal 29.9-35.2 [facility] Comment on above: Performed By: #### U JORI, PHOS, CMP, LDH #### [facility] [address] [address] [address] Juliocesar Young MCV 93.7 fL Normal 81.0-99.0 [facility] Comment on above: Performed By: #### U JORI, PHOS, CMP, LDH #### [facility] [address] [address] [address] Juliocesar Young METAMYELOCYTE # Normal [facility] Comment on above: Performed By: #### U JORI, PHOS, CMP, LDH #### [facility] [address] [address] [address] Juliocesar Young METAMYELOCYTE % Normal [facility] Comment on above: Performed By: #### U JORI, PHOS, CMP, LDH #### [facility] [address] [address] [address] Juliocesar Young MONOM# 0.00 103/ul Critically low 0.30-0.80 [facility] Comment on above: Performed By: #### U JORI, PHOS, CMP, LDH #### [facility] [address] [address] [address] Juliocesar Young MONOM% 0.0 % Critically low 1.7-12.0 The [facility] Comment on above: Performed By: #### U JORI, PHOS, CMP, LDH #### [facility] [address] [address] [address] Juliocesar Young MPV 10.2 fL Normal 9.5-13.5 [facility] Comment on above: Performed By: #### U JORI, PHOS, CMP, LDH #### [facility] [address] [address] [address] Juliocesar Young MYELOCYTE # Normal [facility] Comment on above: Performed By: #### U JORI, PHOS, CMP, LDH #### [facility] [address] [place] [address] Dr. Juliocesar Young MYELOCYTE % Normal [facility] Comment on above: Performed By: #### U JORI, PHOS, CMP, LDH #### [facility] [address] [place] [address] Dr. Juliocesar Young NRBC Normal [facility] Comment on above: Performed By: #### U JORI, PHOS, CMP, LDH #### [facility] [address] [place] [address] Dr. Juliocesar Young PLT 194 103/ul Normal 150-450 [facility] Comment on above: Performed By: #### U JORI, PHOS, CMP, LDH #### [facility] [address] [place] [address] Dr. Juliocesar Young RBC 4.44 106/ul Normal 4.20-5.40 [facility] Comment on above: Performed By: #### U JORI, PHOS, CMP, LDH #### [facility] [address] [place] [address] Dr. Juliocesar Young RDW 14.0 % Normal 11.0-15.0 [facility] Comment on above: Performed By: #### U JORI, PHOS, CMP, LDH #### [facility] [address] [place] [address] Dr. Juliocesar Young SEG # 2.58 103/ul Normal 1.40-6.50 [facility] Comment on above: Performed By: #### U JORI, PHOS, CMP, LDH #### [facility] [address] [place] [address] Dr. Juliocesar Young SEG % 3.0 % Critically low 43.0-75.0 [facility] Comment on above: Performed By: #### U JORI, PHOS, CMP, LDH #### [facility] [address] [address] [address] Juliocesar Young WBC 86.0 103/ul Critically high 4.0-11.0 [facility] Comment on above: Performed By: #### U JORI, PHOS, CMP, LDH #### [facility] [address] [address] [address] Juliocesar Young PERIPHERAL SMEARon 2 Pathologist Cyto stain Nom (Cvx/Vag) [ID] DR. JANESSA PRYOR Normal [facility] Comment on above: Result Comment: Leuk ocyosis with absloute lymphocytosis and smudge cells. Some lymphocytes show increased nuclear size but still with coarse chromatin. Definite prolymphocytes are not seen. If lymphocytosis persist longer than six months further evaluation to exclude a possible lymphoproliferative disorder may be indicated. Clinical correlation is suggested. Performed By: #### U JORI, PHOS, CMP, LDH #### [facility] [address] [place] [address] Dr. Juliocesar Young PROF 14(COMP METB)on 022 Albumin [Mass/Vol] 3.6 g/dL Normal 3.4-5.0 [facility] Comment on above: Performed By: #### C MP #### [facility] [address] [place] [address] Dr. Juliocesar Young Albumin/Globulin [Mass ratio] 1.0 {ratio} Normal [facility] Comment on above: Performed By: #### C MP #### [facility] [address] [place] [address] Dr. Juliocesar Young ALP [Catalytic activity/Vol] 94 U/L Normal 46-116 [facility] Comment on above: Performed By: #### C MP #### [facility] [address] [place] [address] Dr. Juliocesar Young ALT [Catalytic activity/Vol] 26 U/L Normal 14-59 [facility] Comment on above: Performed By: #### C MP #### [facility] [address] [address] [address] Juliocesar Young Anion gap [Moles/Vol] 12.0 mmol/L Normal [facility] Comment on above: Performed By: #### C MP #### [facility] [address] [address] [address] Juliocesar Young AST [Catalytic activity/Vol] 17 U/L Normal 15-37 [facility] Comment on above: Performed By: #### C MP #### [facility] [address] [address] [address] Juliocesar Young Bilirubin [Mass/Vol] 0.6 mg/dL Normal 0.2-1.3 [facility] Comment on above: Performed By: #### C MP #### [facility] [address] [place] [address] Dr. Juliocesar Young Calcium [Mass/Vol] 8.3 mg/dL Critically low 8.5-10.1 [facility] Comment on above: Performed By: #### C MP #### [facility] [address] [address] [address] Juliocesar Young Chloride [Moles/Vol] 105 mmol/L Normal 98-107 [facility] Comment on above: Performed By: #### C MP #### [facility] [address] [place] [address] Dr. Juliocesar Young CO2 [Moles/Vol] 26.3 mmol/L Normal 22.0-30.0 [facility] Comment on above: Performed By: #### C MP #### [facility] [address] [place] [address] Dr. Juliocesar Young Creatinine [Mass/Vol] 0.56 mg/dL Normal 0.52-1.04 [facility] Comment on above: Performed By: #### C MP #### [facility] [address] [place] [address] Dr. Juliocesar Young EGFR-AF SYRIAN >60 Normal >=60 [facility] Comment on above: Performed By: #### C MP #### [facility] [address] [address] [address] Juliocesar Young EGFR-NON AF SYRIAN >60 Normal >=60 [facility] Comment on above: Performed By: #### C MP #### [facility] [address] [place] [address] Dr. Juliocesar Young Globulin (S) [Mass/Vol] 3.7 g/dL Normal [facility] Comment on above: Performed By: #### C MP #### [facility] [address] [place] [address] Dr. Juliocesar Young Glucose [Mass/Vol] 103 mg/dL Normal 74-106 [facility] Comment on above: Performed By: #### C MP #### [facility] [address] [place] [address] Dr. Juliocesar Young Potassium [Moles/Vol] 4.3 mmol/L Normal 3.4-5.0 [facility] Comment on above: Performed By: #### C MP #### [facility] [address] [place] [address] Dr. Juliocesar Young Protein [Mass/Vol] 7.3 g/dL Normal 6.1-8.2 [facility] Comment on above: Performed By: #### C MP #### [facility] [address] [place] [address] Dr. Juliocesar Young Sodium [Moles/Vol] 139 mmol/L Normal 137-145 [facility] Comment on above: Performed By: #### C MP #### [facility] [address] [place] [address] Dr. Juliocesar Young Urea nitrogen [Mass/Vol] 10.0 mg/dL Normal 7.0-18.0 [facility] Comment on above: Performed By: #### C MP #### [facility] [address] [place] [address] Dr. Juliocesar Young Urea nitrogen/Creatinine [Mass ratio] 17.9 mg/mg Normal [facility] Comment on above: Performed By: #### C MP #### [facility] [address] [place] [address] Dr. Juliocesar Young NM PET CT WHOLE BODY 10-[address] WHOLE BODY [facility] Department of Radiology [address] [place] [address] ===== Patient Name: RUTHIE GUERRERO : 1975 Sex: F Age: Race: [...] lower. Electronically signed: Lissa Luther. Transcribed by: [email or web address], User Resident: Electronically Signed by: LISSA LUTHER @ 10/03/2021 03:35 PM Normal [facility] Comment on above: Order Comment: , Exp eriencing increased sweating and hot flashes , Experiencing increased sweating and hot flashes , , , Ordering Provider - BOONE SALINAS MD , POC GLUCOSE NCon 10-03-2021 Glucose [Mass/Vol] 98 mg/dL Normal 70-100 [facility] Comment on above: Performed By: #### 8 [id number] #### [address] CHEST W CONTRASTon 2021 CT CHEST W CONTRAST [facility] Department of Radiology [address] [place] [address] ===== Patient Name: RUTHIE GUERRERO : 1975 Sex: F Age: Race: [...] follow-up to assess for stability. Electronically signed: Nilay Wilson. Transcribed by: [email or web address], User Resident: Electronically Signed by: NILAY WILSON @ 09/07/2021 09:32 AM Normal [facility] Comment on above: Order Comment: in 4 months compare to previous, CT ABDOMEN AND PELVIS W IV C [facility] 07-26-2021 CT ABDOMEN AND PELVIS W IV CONTRAST [facility] Department of Radiology [address] [place] [id number] ===== Patient Name: RUTHIE GUERRERO : 1975 Sex: F Age: Race: [...] cyst. Electronically signed: Angeles Hutchison. Transcribed by: [email or web address], User Resident: Electronically Signed by: MARTIRTASIA KIANNA @ 07/26/2021 02:12 PM Normal [facility] CT CHEST W CONTRASTon 2020 CT CHEST W CONTRAST [facility] Department of Radiology [address] [place] [id number] ===== Patient Name: RUTHIE GUERRERO : 1975 Sex: F Age: Race: [...] achievable Electronically signed: Lissa Luther. Transcribed by: [email or web address], User Resident: Electronically Signed by: LISSA LUTHER @ 07/26/2021 01:10 PM Normal [facility] CT SOFT TISSUE NECK W CONTRA STon 07-26-2021 CT SOFT TISSUE NECK W CONTRAST [facility] Department of Radiology [address] [place] [id number] ===== Patient Name: RUTHIE GUERRERO : 1975 Sex: F Age: Race: [...] well. Electronically signed: Angeles Hutchison. Transcribed by: [email or web address], User Resident: Electronically Signed by: ANGELES HUTCHISON @ 07/26/2021 02:04 PM Normal [facility] CBC W/DIFFon 07-06-2021 ABS NEUTROPHILS 10.6 10*3/uL High 1.6-7.6 [facility] Comment on above: Performed By: #### 3 1513, [id number] #### [facility] [address] [place] [address], [facility] Basophils (Bld) [#/Vol] 0.0 10*3/uL Normal 0.0-0.2 [facility] Comment on above: Performed By: #### 3 1513, 63820 #### [facility] [address] [place] [address], [facility] Basophils/100 WBC (Bld) 0.0 % Normal 0.0-1.0 [facility] Comment on above: Performed By: #### 3 1513, 45421 #### [facility] [address] [facility] [id number], [facility] Eosinophils (Bld) [#/Vol] 0.3 10*3/uL Normal 0.0-0.5 [facility] Comment on above: Performed By: #### 3 1513, 64330 #### [facility] [address] [place] [address], [facility] Eosinophils/100 WBC (Bld) 1.0 % Normal 0.0-6.0 [facility] Comment on above: Performed By: #### 3 1513, [id number] #### [facility] [address] [place] [address], [facility] Erythrocyte distribution width (RBC) [Ratio] 12.3 % Normal 11.5-15.0 [facility] Comment on above: Performed By: #### 3 1513, 49962 #### [facility] [address] [place] [address], [facility] GIANT PLATELETS Present Normal [facility] Comment on above: Performed By: #### 3 1513, 09063 #### [facility] [address] [place] [address], [facility] Hematocrit (Bld) [Volume fraction] 44.6 % Normal 36.0-45.0 [facility] Comment on above: Performed By: #### 3 151, 11493 #### [facility] [address] [place] [address], [facility] Hemoglobin (Bld) [Mass/Vol] 14.5 g/dL Normal 12.0-15.0 [facility] Comment on above: Performed By: #### 3 151, 13213 #### [facility] [address] [place] [address], [facility] Lymphocytes (Bld) [#/Vol] 19.2 10*3/uL High 1.2-4.0 [facility] Comment on above: Performed By: #### 3 1513, 35658 #### [facility] [address] [place] [id number], [place] Lymphocytes/100 WBC (Bld) 62.6 % High 20.0-45.0 [facility] Comment on above: Performed By: #### 3 151, 38139 #### [facility] [address] [place] [id number], [facility] MCH (RBC) [Entitic mass] 29.6 pg Normal 27.0-33.0 [facility] Comment on above: Performed By: #### 3 151, 91759 #### [facility] [address] MCHC (RBC) [Mass/Vol] 32.5 g/dL Normal 32.0-35.0 [facility] Comment on above: Performed By: #### 3 1513, 29936 #### [facility] [address] [facility] [place] [address], [facility] MCV (RBC) [Entitic vol] 91.0 fL Normal 82.0-98.0 [facility] Comment on above: Performed By: #### 3 1513, 70332 #### [facility] [address] [place] [address], [facility] Monocytes (Bld) [#/Vol] 0.6 10*3/uL Normal 0.1-1.0 [facility] Comment on above: Performed By: #### 3 1513, 17449 #### [facility] [address] MONOS 2.0 % Low 5.0-12.0 [facility] Comment on above: Performed By: #### 3 1513, 31933 #### [facility] [address] Neutrophils/100 WBC (Bld) 34.4 % Low 40.0-72.0 [facility] Comment on above: Performed By: #### 3 1513, [id number] #### [facility] [address] Nucleated RBC/100 WBC (Bld) [Ratio] 0 % Normal 0-0 [facility] Comment on above: Performed By: #### 3 1513, 08943 #### [facility] [address] OTHER 1 Checked by Eve Crawford M.D. Normal [facility] Comment on above: Result Comment: Resu lt changed by RAHEL on 07/07/2021 09:55. The previous value was Preliminary report; verified report to follow. Performed By: #### 3 1513, 07336 #### [facility] [address] [place] [address], [facility] PLAT CNT 211 10*3/uL Normal 150-400 [facility] Comment on above: Performed By: #### 3 1513, [id number] #### [facility] [address] [place] [address], [facility] RBC (Bld) [#/Vol] 4.90 10*6/uL Normal 3.80-5.00 [facility] Comment on above: Performed By: #### 3 1513, 35826 #### [facility] [address] [facility] [place] [address], [facility] SMUDGE CELLS Present Normal [facility] Comment on above: Performed By: #### 3 1513, 24588 #### [facility] [address] [facility] [place] [address], [facility] WBC (Bld) [#/Vol] 30.69 10*3/uL High 4.00-10.60 [facility] Comment on above: Performed By: #### 3 1513, 94697 #### [facility] [address] [place] [address], [facility] COMP METABOLIC PANELon 07-06 Albumin [Mass/Vol] 4.3 g/dL Normal 3.5-5.7 [facility] Comment on above: Performed By: #### 1 61, [id number] #### [facility] [address] [place] [address], [facility] ALKALINE PHOSPH 91 IU/L Normal 34-104 [facility] Comment on above: Performed By: #### 1 61, 14032 #### [facility] [address] [place] [address], [facility] ALT [Catalytic activity/Vol] 12 U/L Normal 7-52 [facility] Comment on above: Performed By: #### 1 61, 93537 #### [facility] [address] [place] [address], [facility] AST [Catalytic activity/Vol] 14 U/L Normal 13-39 [facility] Comment on above: Performed By: #### 1 61, 16386 #### [facility] [address] [place] [address], [place] Bilirubin [Mass/Vol] 0.4 mg/dL Normal 0.3-1.0 [facility] Comment on above: Performed By: #### 1 61, 87392 #### [facility] [address] [place] [address], [place] Calcium [Mass/Vol] 8.9 mg/dL Normal 8.6-10.3 [facility] Comment on above: Performed By: #### 1 61, 53232 #### [facility] [address] [place] [address], [facility] Chloride [Moles/Vol] 107 mmol/L Normal 98-107 [facility] Comment on above: Performed By: #### 1 61, 87134 #### [facility] [address] [place] [address], [place] CO2 [Moles/Vol] 22 mmol/L Normal 21-31 [facility] Comment on above: Performed By: #### 1 61, 95086 #### [facility] [address] [place] [address], [place] Creatinine [Mass/Vol] 0.58 mg/dL Low 0.60-1.20 [facility] Comment on above: Performed By: #### 1 61, 53532 #### [facility] [address] [place] [id number], [place] GFR/1.73 sq M.predicted among blacks MDRD (S/P/Bld) [Vol rate/Area] mL/min/{1.73_m2} Normal >60 [facility] Comment on above: Performed By: #### 1 61, 97010 #### [facility] [address] [place] [address], [place] GFR/1.73 sq M.predicted among non-blacks MDRD (S/P/Bld) [Vol rate/Area] mL/min/{1.73_m2} Normal >60 [facility] Comment on above: Performed By: #### 1 61, 05694 #### [facility] [address] [place] [address], [place] Glucose [Mass/Vol] 87 mg/dL Normal 70-100 [facility] Comment on above: Performed By: #### 1 61, 46216 #### [facility] [address] [place] [address], [place] Potassium [Moles/Vol] 4.2 mmol/L Normal 3.5-5.1 [facility] Comment on above: Performed By: #### 1 61, 81817 #### [facility] [address] [place] [address], [place] Protein [Mass/Vol] 6.9 g/dL Normal 6.0-8.3 [facility] Comment on above: Performed By: #### 1 61, 67263 #### [facility] [address] [place] [address], [place] Sodium [Moles/Vol] 138 mmol/L Normal 136-145 [facility] Comment on above: Performed By: #### 1 61, 04161 #### [facility] [address] [place] [address], [place] Urea nitrogen [Mass/Vol] 16 mg/dL Normal 7-25 [facility] Comment on above: Performed By: #### 1 61, 78672 #### [facility] [address] [place] [address], [place] HEMATOLOGY COMPLETE EVALUATI ON siPARDIGMon 07-06-2021 RESULT Results to be mailed directly to physician's office by reference lab. Normal [facility] Comment on above: Result Comment: Test performed by [employer] * [address], [address] * [place], [place] * [phone] Access Coordinator: Anupam Beck M.D. RESULTS FAXED TO [phone] Performed By: #### 3 1839 #### [facility] [address] [place] [address], [facility] HEMOGRAM VIRY POCon 07-06-20 21 ABS NEUT VIRY POC 5.4 10*3/uL Normal 1.6-7.6 [facility] Comment on above: Performed By: #### 3 1513, 74116 #### [facility] [address] [place] [address], [facility] Hematocrit (Bld) [Volume fraction] 43.6 % Normal 36.0-45.0 [facility] Comment on above: Performed By: #### 3 1513, 36844 #### [facility] [address] [facility] [place] [address], [facility] Hemoglobin (Bld) [Mass/Vol] 14.6 g/dL Normal 12.0-15.0 [facility] Comment on above: Performed By: #### 3 1513, 50740 #### [facility] [address] [facility] [place] [address], [facility] PLAT CNT VIRY POC 205 10*3/uL Normal 150-400 [facility] Comment on above: Performed By: #### 3 1513, 84778 #### [facility] [address] [facility] [place] [address], [facility] WBC (Bld) [#/Vol] 29.9 10*3/uL High 4.0-10.6 [facility] Comment on above: Performed By: #### 3 1513, 77132 #### [facility] [address] [facility] [place] [address], [facility] LDH BLOODon 07-06-2021 LDH 183 Units/L Normal 140-271 [facility] Comment on above: Performed By: #### 1 0062, 39454 #### [facility] [address] [place] [address], [facility] PROTEIN ELECT Damian 07-06-2021 Protein [Mass/Vol] 6.8 g/dL Normal 6.0-8.3 [facility] Comment on above: Performed By: #### 4 1661 #### [facility] [address] [place] [address], [facility] PROTEIN ELECT Normal [facility] Comment on above: Result Comment: Norm al Pattern. Prominent albumin peak is seen along with normal fractions of alpha 1, alpha 2, beta and gamma globulins. SEE SEPARATE REPORT Performed By: #### 4 1661 #### [facility] [address] [facility]. [address] Vital Signs Date Time Vital Sign Value Performing Clinician Facility 02-27-2025 11:02-040 Body height 172.72 cm Bernice Chavis DO Work Phone: [facility] 02-27-2025 11:02-0400 Body mass index (BMI) [Ratio] 34.8 kg/m2 Bernice Chavis DO Work Phone: [facility] 02-27-2025 11:02-040 Body temperature 98 [degF] Bernice Chavis DO Work Phone: [facility] 02-27-2025 11:02-040 Body weight 103.9 kg Bernice Chavis DO Work Phone: [facility] 02-27-2025 11:02-0400 Diastolic blood pressure 80 mm[Hg] Bernice Chavis DO Work Phone: [facility] 02-27-2025 11:02-0400 Heart rate 79 /min Bernice Chavis DO Work Phone: [facility] 02-27-2025 11:02-0400 SaO2% (BldA) [Mass fraction] 97 % Bernice Chavis DO Work Phone: [facility] 02-27-2025 11:02-0400 Systolic blood pressure 126 mm[Hg] Bernice Chavis DO Work Phone: [facility] 12-19-2024 08:08-0400 Body height 172.72 cm Bernice Chavis DO Work Phone: [facility] 12-19-2024 08:08-0400 Body mass index (BMI) [Ratio] 34.7 kg/m2 Bernice Chavis DO Work Phone: [facility] 12-19-2024 08:08-0400 Body weight 103.41 kg Bernice Chavis DO Work Phone: [facility] 12-19-2024 08:08-0400 Diastolic blood pressure 84 mm[Hg] Bernice Chavis DO Work Phone: [facility] 12-19-2024 08:08-0400 Heart rate 74 /min Bernice Chavis DO Work Phone: [facility] 12-19-2024 08:08-0400 SaO2% (BldA) [Mass fraction] 98 % Bernice Chavis DO Work Phone: [facility] 12-19-2024 08:08-0400 Systolic blood pressure 130 mm[Hg] Bernice Chavis DO Work Phone: [facility] 02-22-2024 11:13-0400 Body height 172.72 cm [facility] 02-22-2024 11:13-0400 Body mass index (BMI) [Ratio] 34.9 kg/m2 [facility] 02-22-2024 11:13-0400 Body weight 104.32 kg [facility] 02-22-2024 11:13-0400 Diastolic blood pressure 74 mm[Hg] [facility] 02-22-2024 11:13-0400 Heart rate 72 /min [facility] 02-22-2024 11:13-0400 SaO2% (BldA) [Mass fraction] 97 % [facility] 02-22-2024 11:13-0400 Systolic blood pressure 132 mm[Hg] [facility] 12-19-2023 11:39-0400 Body height 172.72 cm [facility] 12-19-2023 11:39-0400 Body mass index (BMI) [Ratio] 34.3 kg/m2 [facility] 12-19-2023 11:39-0400 Body weight 102.51 kg [facility] 12-19-2023 11:39-0400 Diastolic blood pressure 74 mm[Hg] [facility] 12-19-2023 11:39-0400 Heart rate 75 /min [facility] 12-19-2023 11:39-0400 SaO2% (BldA) [Mass fraction] 98 % [facility] 12-19-2023 11:39-0400 Systolic blood pressure 116 mm[Hg] [facility] 02-21-2023 14:00-0400 Body height Bernice Chavis Other [facility] [employer] Other 02-21-2023 14:00-0400 Body mass index (BMI) [Ratio] 32.23 kg/m2 Bernice Chavis Other [employer] [facility] [employer] Other 02-21-2023 14:00-0400 Body temperature 98.2 [degF] Bernice Chvais Other [employer] [facility] [employer] Other 02-21-2023 14:00-0400 Body weight 96.16 kg Bernice Chavis Other [employer] [facility] [employer] Other 02-21-2023 14:00-0400 Diastolic blood pressure 86 mm[Hg] Bernice Chavis Other [employer] Other 02-21-2023 14:00-0400 SaO2% (BldA) [Mass fraction] 99 % Bernicejaspal Chavis Other [employer] Other 02-21-2023 14:00-0400 Systolic blood pressure 122 mm[Hg] Bernice Chavis Other [employer] Other 06-13-2021 12:15-0500 Body height Bernice Palmira Other [employer] Other 06-13-2021 12:15-0500 Body mass index (BMI) [Ratio] 33.69 kg/m2 Bernice Chavis Other [employer] Other 06-13-2021 12:15-0500 Body temperature 98.1 [degF] Bernice Chavis Other [employer] Other 06-13-2021 12:15-0500 Body weight 100.52 kg Bernice Palmira Other [employer] Other 06-13-2021 12:15-0500 Diastolic blood pressure 84 mm[Hg] Bernice Chavis Other [employer] Other 06-13-2021 12:15-0500 Respiratory rate 18 /min Bernice Chavis Other [employer] Other 06-13-2021 12:15-0500 SaO2% (BldA) [Mass fraction] 97 % Bernice Chavis Other [employer] Other 06-13-2021 12:15-0500 Systolic blood pressure 124 mm[Hg] Bernice Chavis Other [facility] [employer] Other Encounters Encounter Date Encounter Type Care Provider Facility Start: 02-27-2025 End: 02-27-2025 ambulatory Bernice Chavis DO Work Phone: [facility] Work Phone: Start: 02-27-2025 End: 02-27-2025 Patient encounter procedure Bernice Chavis DO [facility] [place] Work Phone: Start: 02-27-2025 End: 02-27-2025 Patient encounter status Bernice Chavis DO [facility] Start: 12-19-2024 End: 12-19-2024 Patient encounter procedure Bernice Chavis DO [facility] [place] Work Phone: Start: 06-12-2024 End: 06-12-2024 Patient encounter procedure Bernice Chavis DO Work Phone: [facility] Work Phone: Start: 06-12-2024 End: 06-12-2024 ambulatory Bernice Chavis Facility:[facility] Start: 05-27-2024 Non-patient / Non-visit Coby Chavis DO Work Phone: [facility] [employer] Work Phone: Start: 02-22-2024 End: 02-22-2024 ambulatory [facility] Work Phone: Start: 02-22-2024 End: 02-22-2024 Patient encounter procedure [facility] [place] Work Phone: Start: 01-29-2024 Non-patient / Non-visit [facility] [employer] Work Phone: Start: 12-19-2023 End: 12-19-2023 Patient encounter procedure [facility] [place] Work Phone: Start: 05-31-2023 End: 05-31-2023 ambulatory Bernice Chavis Other [employer] Other Start: 05-31-2023 Telephone encounter Bernice Kumarmer Jacquelin [employer] Start: 05-28-2023 End: 05-28-2023 Patient encounter procedure DO Bernice Chavis Work Phone: [facility] Work Phone: Start: 05-28-2023 End: 05-28-2023 ambulatory DO Bernice Chavis Work Phone: [facility] [employer] Work Phone: Start: 05-28-2023 Telephone encounter Bernice Palmira Jacquelin [facility] [place] Start: 05-22-2023 End: 05-22-2023 ambulatory DO Bernice Chavis Work Phone: [facility] [employer] Work Phone: Start: 05-22-2023 End: 05-22-2023 Patient encounter procedure DO Bernice Chavis Work Phone: [facility] Work Phone: Start: 03-09-2023 End: 03-09-2023 ambulatory Vicente Tam Other [employer] Other Start: 03-09-2023 Telephone encounter Vicente LIRIANO [employer] Start: 02-21-2023 End: 02-21-2023 ambulatory Bernice Palmira Other [employer] Other Start: 02-21-2023 Encounter for genera l adult medical examination without abnormal findings Bernice Chavis [facility] [place] Start: 02-21-2023 Periodic preventive med est patient 40-64yrs Bernice Chavis [facility] [place] Start: 10-11-2022 End: 10-12-2022 ambulatory MOHAMMAD SALINAS Facility:[facility] Start: 07-18-2022 End: 07-19-2022 ambulatory MOHAMMAD SALINAS Facility:[facility] Start: 04-04-2022 End: 04-05-2022 ambulatory MOHAMMAD SALINAS Facility:[facility] Start: 03-24-2022 End: 03-25-2022 ambulatory MOHAMMAD H SALINAS Facility:[facility] Start: 03-16-2022 End: 03-16-[address] EMILIANO XAVIER . Facility:[facility] Start: 03-15-2022 End: 03-15-[address] EMILIANO XAVIER . Facility:[facility] Start: 03-13-2022 End: 03-14-2022 ambulatory MOHAMMAD H SALINAS Facility:[facility] Start: 02-23-2022 End: 02-24-2022 ambulatory MOHAMMAD SALINAS Facility: Start: 02-03-2022 End: 02-03-2022 Patient encounter procedure MOHAMMAD JAVIER SALINAS [facility] Start: 01-26-2022 End: 01-27-2022 ambulatory MOHAMMAD SALINAS Facility:[facility] Start: 01-10-2022 End: 01-11-2022 ambulatory MOHAMMAD SALINAS Facility:[facility] Start: 12-30-2021 End: 12-30-2021 ambulatory MOHAMMAD H SALINAS Facility:[facility] Start: 12-29-2021 End: 12-30-2021 ambulatory MOHAMMAD SALINAS Facility:[facility] Start: 12-26-2021 End: 12-26-2021 ambulatory REFERRED SELF Facility:[facility] Start: 12-20-2021 End: 12-21-[address] DOCTOR NGUYEN Facility:[facility] Start: 12-12-2021 End: 12-13-[address] DOCTOR NGUYEN Facility:[facility] Start: 12-05-2021 End: 12-05-2021 ambulatory REFERRED SELF Facility:[facility] Start: 12-03-2021 End: 12-04-2021 ambulatory BERNICE CHAVIS Facility:[facility] Start: 11-29-2021 End: 11-29-2021 ambulatory MOHAMMAD H SALINAS Facility:[facility] Start: 11-25-2021 End: 11-26-2021 ambulatory BERNICE CHAVIS Facility: Start: 10-03-2021 End: 10-04-2021 ambulatory REFERRED SELF Facility:[facility] Start: 09-28-2021 End: 09-28-2021 ambulatory Bernice Chavis Other [employer] Other Start: 09-28-2021 Telephone encounter Bernice [facility] Start: 09-27-2021 End: 09-27-2021 ambulatory Bernice Chavis Other [employer] Other Start: 09-27-2021 Telephone encounter Bernice [facility] Start: 09-06-2021 End: 09-07-2021 ambulatory MOHAMMAD H SALINAS Facility:[facility] Start: 07-26-2021 End: 07-27-2021 ambulatory MOHAMMAD H SALINAS Facility:[facility] Start: 06-26-2021 End: 06-26-2021 ambulatory Bernice Chavis Other [employer] Other Start: 06-26-2021 Encounter by desmond clark Bernice Chavis [facility] Start: 06-13-2021 End: 06-13-2021 ambulatory Bernice Chavis Other [employer] Other Start: 06-13-2021 Office outpatient vi sit 15 minutes Bernice Chavis [facility] Start: 06-13-2021 Telephone encounter Bernice [facility] Procedures Date Procedure Procedure Detail [...] of Treatment Date Care Activity Detail Author Estrogen [Mass/volum e] in Serum or Plasma [facility] C enter Lutropin [Units/volu me] in Serum or Plasma [facility] enter [facility] Immunizations Immunization Date Immunization Notes Care Provider Antonella chase 07-22-2021 COVID-19 mRNA, Comirnaty (Pfizer) Bernice Chavis DO Work Phone: [facility] 12-11-2020 COVID-19, mRNA, LNP- S, PF, 30 mcg/0.3 mL dose MOHAMMAD SALINAS [facility] Comment on above: Reason for Medicatio n: Prophylaxis 11-20-2020 COVID-19, mRNA, LNP- S, PF, 30 mcg/0.3 mL dose MOHAMMAD SALINAS [facility] Comment on above: Reason for Medicatio n: Prophylaxis Payers Date Payer Category Payer Medicaid [id number] 2016 Unknown [id number] 2.1 [id number] 1974 Unknown [id number] 2.16.8 40.1.607838.3.579.2.647 1974 Unknown [id number] 2.16.8 40.1.684527.3.579.2.647 1974 Unknown [id number] 2.16.8 40.1.318743.3.579.2.647 1974 Unknown [id number] 2.16.8 40.1.033284.3.579.2.647 1974 Unknown [id number] 2.16.8 40.1.653481.3.579.2.647 1974 Unknown [id number] 2.16.8 40.1.751828.3.579.2.647 1974 Unknown [id number] 2.16.8 40.1.068280.3.579.2.647 1974 Unknown [id number] 2.16.8 40.1.532726.3.579.2.647 1974 Unknown [id number] 2.16.8 40.1.596324.3.579.2.647 1974 Unknown [id number] 2.16.84 0.1.536181.3.579.2.593 1974 Unknown [id number] 2.16.84 0.1.914612.3.579.2.593 1974 Unknown [id number] 2.16.84 0.1.073318.3.579.2.593 1974 Unknown [id number] 2.16.84 0.1.306053.3.579.2.593 1974 Unknown [id number] 2.16.84 0.1.277754.3.579.2.593 1974 Unknown [id number] 2.16.84 0.1.063728.3.579.2.593 1974 Unknown [id number] 2.16.84 0.1.088622.3.579.2.593 1974 Unknown [id number] 2.16.84 0.1.049422.3.579.2.593 1974 Unknown [id number] 2.16.84 0.1.392592.3.579.2.593 1974 Unknown [id number] 2.16.84 0.1.340142.3.579.2.593 1974 Unknown [id number] 2.16.84 0.1.497377.3.579.2.593 1974 Unknown [id number] 2.16.84 0.1.606824.3.579.2.593 1974 Unknown [id number] 2.16.84 0.1.549172.3.579.2.593 1974 Unknown [id number] 2.16.84 0.1.738073.3.579.2.593 1959 Unknown [id number] Self-pay Self Pay [id number] Social History Date Type Detail Facility Unknown if ever smoked [facility] [employer] Other Sex Assigned At [facility] [employer] Other Tobacco smoking status No Smokin g Status Entered [facility] Start: 1975 Sex Assigned At Female F [facility] Start: 03-04-2021 End: 03-04-2021 Tobacco smoking status NHIS Ex-smoker (finding) [facility] Start: 06-13-2024 Sex Female (finding) [facility] Clinical Notes 06-13-2021 to 12-19-2024 Note Date & Type Note Facility 12-19-2024 Evaluation note Diagnosis Onset Date Resolution Arthritis chronic December 19, 2024 8:03am Arthritis chronic February 27 10:56am CLL (chronic lymphocytic leukemia) chronic February 27, 2025 10:56am PTSD (post-traumatic stress disorder) chronic February 27, 2025 10:56am Spinal stenosis chronic February 10:56am Sweating abnormality noneactive February 27, 2025 10:56am Chronic fatigue noneactive February 10:56am Dermatitis noneactive February 27 10:56am Well adult exam noneactive February 10:56am [facility] Work Phone: [phone]) 416-104311-19-2024 NoteRefill call completed [facility] 10:08 [facility]11-19-2024 NoteRefill call completed November [facility] 06/24/24 8:43 [facility]11-19-2024 NoteEnrolling patient in patient management program. Initial assessment completed 02/27/24. Reviewed and approved by CHELSEA DARLING on 07/25/24 at 4:27 PM. Specialty Pharmacy Initial Assessment [facility] Encounter Date: 02/27/24 Ruthie Guerrero is a 48 y.o. year old female patient contacted via phone for targeted medication review prior to enrollment in Specialty Pharmacy Services for Calquence 100 mg take 1 tablet twice daily . The purpose of this review is to reconcile the patient's current medication regimen, provide patient education, identify drug-drug interactions, assess medication appropriateness, and correctional counselor on the expectations of therapy specific to the above medication. Specialist: Dr. Salinas (Patient transferring care to [facility] with Dr. Mcintosh) Indication: Chronic lymphocytic leukemia (CLL) (ICD10 C91.10) PHARMACIST REVIEW OF INITIAL CLINICAL ASSESSMENT & PAST THERAPIES 10/12/2021 in [place] by Kayleen Moise from [place] (10/12/21): Supervising Physician & Clinic: Dr. Salinas, [facility] Ruthie is a 46 year-old female with PMH [...] CMP: WNL CBC: WBC 36.4, Lymphocytes 86%, [address] Based on first line therapy per NCCN [...] following address was verified with the patient: [address] [place] [id number] Phone number and emergency contact information on file in [facility] was verified with the patient. Yes; safe contact number/address: [phone] ASSESSMENT/CARE PLAN: Patient's diagnosis, comorbidities, health problems, [...] EDUCATION PROVIDED: The patient (more content not included)...[facility] 06-24-2024 NoteRefill call completed November Jason Hayden [facility] 10/16/24 11:54 [facility]11-19-2024 NoteRefill call complete. Kayleen Faustin PharmD, [facility] 08/22/24 3:44 PM [facility] [phone]11-[facility]-2024 NoteRefill call completed. Kayleen Faustin PharmD, [employer] 11/11/24 4:33 PM [facility] [phone]11-19-2024 NoteSpecialty Pharmacy Recurring Reassessment [facility] PHARMACY Encounter Date: 02/26/25 Ruthie Guerrero is a 49 y.o. year old female patient contacted via phone for standard reassessment for continued enrollment in Specialty Pharmacy Services for [facility]. The purpose of this review is to reconcile the patient's current medication regimen, identify drug-drug interactions, assess medication appropriateness and efficacy, and review patient specific care plan. Specialist: Dr. Rachel Mcintosh, [facility] Indication: Chronic lymphocytic leukemia of B-cell type not having achieved remission (Diagnosis Code: C91.10) Patient Active Problem List Diagnosis CLL (chronic lymphocytic leukemia) (CMS/FORMERLY [facility]) Chronic fatigue Abnormal reflex Carpal tunnel syndrome Thoracic spondylosis Epithelial inclusion cyst Inflammation of sacroiliac joint Lumbosacral spondylosis without myelopathy Malaise and fatigue Muscle weakness (generalized) Lumbar radiculopathy The following evidence-based tools were consulted for this evaluation: [x] Accupal Drug Information [] UpToDate Clinical Resource [] Clinical Pharmacology [x] FDA Package Insert [] Other: Please Specify: DATE OF COMPLETED INITIAL ASSESSMENT AND CARE PLAN: 02/27/2024 CURRENT DOCUMENTED OUTPATIENT MEDICATIONS/ALLERGIES/DIETARY RESTRICTIONS, DRUG INTERACTIONS, [...] syringe epinephrine 0.3 mg/0.3 mL injection, auto-injector Reviewed and documented in the Current Medication [...] gluten intolerance, lactose intolerance, Hilal, Kosher) and the following was reported: dairy intolerance Potential drug-drug interactions (including prescription, OTC, and herbal/dietary supplements) were assessed and none were identified A drug utilization review was conducted and there were no DUR alerts identified. The following address was verified with the patient: [address] [place] [id number] [x] Phone number in [employer] was verified with the patient. [phone] [x] Preferred method of communication: phone [x] Emergency Contact information is on file in [facility] Verified the following documents are available in [facility]: [x] HIPAA Notice of Privacy Practices [x] Confidential Communications Request Form: Trav If any of the above documents are not available, the following information was verified with the patient: verbally verified ok to speak with Trav Paiz in regards to medication if needed REASSESSMENT/CARE PLAN: Patient's diagnosis, comorbidities, health problems, and medical history have been reviewed and assessed. Pertinent labs to the patient's diagnosis and/or therapy have been reviewed, are in range, and are being followed by the clinic/pharmacy. Most Recent Care Plan: The following was discussed with patient: [x] Adherence to medication Patient admits no missed doses No side effects at this time [x] Progress toward therapeutic goals She still has chronic pain issues related to her back and not cancer, but is able to perform daily activities Fatigue related to her cancer has drastically improved with improvement in blood counts while using Calquence [x] Care plan review Maintain current status of improved fatigue and ability to do daily activites [x] Confirmed that the patient has received a welcome packet. If no, document how packet was provided at this time: n/a UPDATED CAREPLAN Problem/Diagnosis: Chronic lymphocytic leukemia of B-cell type not having achieved remission Goal/Expected Outcome of Therapy: Maintain ability to complete daily activities and current fatigue levels Actions taken/recommendations to meet goal: Take Calquence as prescribed Monitoring Plan to meet goal: Follow up in one year to reassess ability to perform daily activities and fatigue The pharmacy will contact the patient on 02/26/2026 or sooner if clinically warranted for a reassessment to assess toxicity, adherence, and relevant therapeutic goals/care plan. PATIENT VERBALIZED UNDERSTANDING OF CARE PLAN: Y PATIENT ADVISED TO CALL BACK WITH QUESTIONS, CONCERNS, OR CHANGES IN SYMPTOMS. The patient reports concerns about: None [x] Update Checklist for Care Plan Review [facility] (more content not included)...[facility] 05-28-2024 NoteSpecialty Pharmacy - Refill Outreach Date: 05/28/24 Completed [...] overall satisfaction with the services provided by [facility]? (Scale 1-5: 1 being poor, 5 being excellent): 5 Does the patient have any questions for a pharmacist or request to speak to a pharmacist? No Is clinical intervention necessary? No The following information has been verified with the patient: Address: [address] [place] [phone] Rx with be obtained by: Mail Expected date of mail to be delivered: 05/31/2024 Next outreach to patient: approximately 3 weeks (06/18/2024) Pham Hayden CPhT [facility]28[facility]* Encounter Date Diagnosis Assessment Notes Treatment Notes Treatment Clinical Notes Feb, Screening mammogram, encounter for (ICD-10 [...] Feb, Tree nut allergy (ICD-10 - Z91.018) [facility] Other 02-22-2022 Evaluation note* Encounter Date Diagnosis Assessment Notes Treatment Notes Treatment Clinical Notes Sep, Left breast lump (ICD-10 - N63.20) Sep, Screening mammogram, encounter for (ICD-10 - Z12.31) [facility] Other 11-08-2021 Evaluation note* Encounter Date Diagnosis Assessment Notes Treatment Notes Treatment Clinical Notes Jun, Tree nut allergy (ICD-10 - Z91.018) Based on patient's history of having sudden allergic reactions to ingesting tree nuts she will be sent for allergy testing by an hospital admissions officer. The foods that she is stating triggers [...] surgeon so it will be refilled here. [facility] Other Evaluation + Plan note No data available for this section [facility] InformationNort [facility] Other Evaluation noteNo assessment information available [facility] Work Phone: Evaluation note* Diagnosis Onset Date Resolution Status Impingement of left shoulder noneactive Subacromial bursitis of left shoulder joint noneactive CLL (chronic lymphocytic leukemia) chronic PTSD (post-traumatic stress disorder) chronic Spinal stenosis chronic Screening for colon cancer n oneactive Well adult noneactive [facility] Work Phone: History general Narrative - [...] cervical fusion 05/2020 Hospitalization History See above [facility] Other Hospital Discharge instructions No data available for this section [facility] instructionsAmbulatory Orders* AMB Cologuard Time Frame: 02/22/24, Location: Determined By Patient [facility] Work Phone: Hospital Discharge instructionsAmbulatory Orders* AMB Cologuard Time Frame: 02/27/25, Location: Determined By Patient [facility] Work Phone: Progress note No data available for this section [facility] HospitalReason for referral (narrative)No reason for referral information availableWvumedicine [facility] Work Phone: Reason for Referral Reason colorectal screening Diagnosis 1 Screening for colon cancer (Z12.11) Referral Organization [facility] Family Maurice Gallardo Referring Provider First Name Bernice Referring Provider Last Name Palmira Referring Provider Specialty Family Prac yusuf Referred Organization [facility] Gastroenterolo gy Referred Address [address] [address] ,[place], [place],[address] Referred Provider Specialty Gastroentero logy Referral Priority Routine Reason * FU 06/20 Patient feels she is allergic to tree nuts as she had an issue after eating a pecan, assess for allergy testing Diagnosis 1 Tree nut allergy (Z9 1.018) Referral Organization [facility] Family Hellenin sherita Gallardo Referring Provider First Name Bernice Referring Provider Last Name Palmira Referring Provider Specialty Family Prac yusuf Referred Organization [facility] Referred Provider Harry King Referred Address ,[place], [place],[address] Referred Provider Specialty Allergy/Immu nology Referral Priority [...] Date Screening June 12, 2024 2 :52pm Chief Complaint Admit Date talk about left hip xray she had done Ma y 2024 8:03am AWV February 27, 2025 10:5 6am Reason for Visit Admit Date Arthritis December 19, 2024 8:03a m Arthritis February 27, 2025 10:5 6am CLL (chronic lymphocytic leukemia) February 27, 2025 10:56am PTSD (post-traumatic stress disorder) Ju ly 2024 10:56am Spinal stenosis February 27, 2025 10:5 6am Sweating abnormality February 27, 2025 10: 56am Chronic fatigue February 27, 2025 10:5 6am Dermatitis February 27, 2025 10:5 6am Well adult exam February 27, 2025 10:5 6am Additional Source Comments REASON FOR VISIT (unrecogniz ed section and content) REFERRAL UPDATEBreast ultras ound resultsMAIL PPWawvmammogran and ultra soundCancer care at [facility]discuss allergies Care Team (unrecognized sect ion and content) Team Status: Active Member Role Status Dates Bernice Chavis DO Primary Care Provider Active Team Status: Inactive Member Role Status Dates Bernice Chavis DO Primary Care Provider Active Start: December 19, 2024 End: December 19, 2024 Bernice Chavis DO Attending Provider Active Start: December 19, 2024 End: December 19, 2024 Team Status: Inactive Member Role Status Dates Bernice Chavis DO Primary Care Provider Active Start: February 27, 2025 End: February 27, 2025 Bernice N Palmira , DO Attending Provider Active Start: February 27, 2025 End: February 27, 2025 Team Status: Active Member Role Status Dates Bernice Chavis , DO Primary Care Provider Active Start: May 27, 2024 Rachel Mcintosh MD Attending Provider Active St art: May 27, 2024 Team Status: Inactive Member Role Status Dates Bernice Chavis , DO Primary Care Provider Active Start: June [...] section and content) DATE CREATED AUTHOR 02/22/2022 [facility] DATE CREATED AUTHOR AUTHOR'S ORGANIZ ATION 03/28/[address] [facility] DATE CREATED AUTHOR AUTHOR'S ORGANIZ ATION [facility] DATE CREATED AUTHOR AUTHOR'S ORGANIZ ATION 06/14/2024 [facility] DATE CREATED AUTHOR AUTHOR'S ORGANIZ ATION 02/27/2025 [facility] Goals (unrecognized section and content) [...] BE BASED ON THE PRIMARY CLINICAL RECORDS. [facility]. provides no warranty or guarantee of the accuracy or completeness of information in this document.
[2025-04-07 14:29] LABS: Hematocrit 43.9 % (36.0-48.0); Hemoglobin 14.6 g/dL (12.0-16.0); Immature Granulocytes Abs Auto 0.02 10^3/uL (0.00-0.03); Immature Granulocytes Pct Auto 0.3 % (0.0-0.5); Lymphocytes Absolute Auto 1.7 10^3/uL (1.2-3.8); Mean Corpuscular HGB Conc 33.3 g/dL (29.9-35.2); Mean Corpuscular Hemoglobin 30.1 pg (26.7-34.0); Mean Corpuscular Volume 90.5 fL (81.0-99.0); Platelet Count 175 10^3/uL (150-450); Red Blood Count 4.85 10^6/uL (4.20-5.40); White Blood Count 7.5 10^3/uL (4.0-11.0)
[2025-04-07 14:48] LABS: Alanine Aminotransferase 30 U/L (14-59); Albumin Globulin Ratio 0.9; Albumin Level 3.6 g/dL (3.4-5.0); Alkaline Phosphatase 88 U/L (46-116); Anion Gap 11.6; Aspartate Amino Transferase 16 U/L (15-37); Blood Urea Nitrogen 8.0 mg/dL (7.0-18.0); Calcium 8.9 mg/dL (8.5-10.1); Carbon Dioxide 26.7 mmol/L (21.0-32.0); Chloride 108 mmol/L (98-107); Estimated GFR (African America >60 (>=60 mL/min/1.73m^2); Estimated GFR (Non-African Ame >60 (>=60 mL/min/1.73m^2); Globulin 4.0 g/dL; Glucose 91 mg/dL (74-106); Potassium 4.3 mmol/L (3.5-5.1); Sodium 142 mmol/L (136-145); Total Protein 7.6 g/dL (6.4-8.2)
== END 2025-04-07 14:11 | disposition home or self-care (01) ==
PROVIDERS: Visit Provider Internal Medicine Hematology & Oncology
DX: C91.10 Chronic lymphocytic leukemia of B-cell type not having achieved remission (principal)
CPT/HCPCS: 36415; 80053; 83615; 85025

== ENCOUNTER 2025-04-14 11:13 | Outpatient (RCR) | payer MEDICAID, SELFPAY | END 2025-05-05 23:59 | disposition home or self-care (01) | LOC: HEMC 11:13 | PROVIDERS: Visit Provider Internal Medicine Hematology & Oncology | DX: C91.10 Chronic lymphocytic leukemia of B-cell type not having achieved remission (principal); Z90.710 Acquired absence of both cervix and uterus; Z87.891 Personal history of nicotine dependence; Z90.721 Acquired absence of ovaries, unilateral; Z98.1 Arthrodesis status; R61 Generalized hyperhidrosis; R53.83 Other fatigue | CPT/HCPCS: G0463 ==